=== PATIENT | female | born 1965 | race African-American/Black ===

== ENCOUNTER 2017-05-18 14:46 | Inpatient (IN) | payer BC, SELFPAY ==
[2017-05-18] VITALS (12 sets, daily range): BP systolic 161–223; BP diastolic 91–116; PULSE 102–130; RESP 17–31; TEMP 36.6–37.3; O2SAT 97–100; BMI 41.9; BMI 39.9
--- NOTE | 2017-05-18 15:35 | EKG12_ITS ---
Test Reason : SOB Blood Pressure : / mmHG Vent. Rate : 126 BPM Atrial Rate : 126 BPM P-R Int : 128 ms QRS Dur : 084 ms QT Int : 322 ms P-R-T Axes : 063 045 027 degrees QTc Int : 466 ms Sinus tachycardia Nonspecific ST and T wave abnormality Abnormal ECG Confirmed by SHYANN SORENSON, SANDRA ([id number]), film editor KRYSTA EDUARDO ([id number]) on 05/20/2017 3:15:49 PM Referred By: Confirmed By:SANDRA BOOTHE MD
--- NOTE | 2017-05-18 15:36 | CT_ITS ---
CTA Chest WO/W Contrast INDICATION: SHORT OF BREATH,WHEEZING,COUGHING,FEVERPT HAS CEREBRAL PALSY COMPARISON: None TECHNIQUE: High resolution axial CT imaging of the chest during intravenous contrast administration, CTA protocol. Multiplanar and MIP 3D reformatted images. 100 mL of Isovue-370 were given intraveniously. Radiation dose optimization technique applied. FINDINGS: There is no evidence of central or proximal segmental pulmonary arterial filling defect to suggest PE. Distal segmental and subsegmental vessels cannot be assessed due to breathing motion. Marked right convex scoliosis of the thoracic spine is noted with degenerative changes and fusion hardware. Fusion rods cause beam hardening artifact. The heart size is normal. Right upper lobe predominant patchy and hazy peribronchial opacities are seen, compatible with infection. Perihilar peribronchial opacities are present, right worse than left. No significant mediastinal lymphadenopathy. No evidence of pleural effusion. The liver is low in density and enlarged. CT/CTA Chest W/WO Contrast IMPRESSION: No evidence of central or proximal segmental PE. Distal segmental and subsegmental vessels cannot be assessed due to breathing motion. Scoliosis with fusion hardware causing artifact. Right sided upper lobe predominant peribronchial opacities compatible with infection/pneumonia. No evidence of pleural effusion. Hepatomegaly and hepatic steatosis at 1742 Reported and signed by: Stacy Mendoza MD Electronically Signed: Stacy Mendoza MD at 16:41 EST Tel , Service support ,
--- NOTE | 2017-05-18 15:38 | ED.VISSUMM ---
- ER Visit Summary Date of Service: 05/18/17 Chief Complaint: Shortness of breath History of Present Illness: The patient is a 51 F presenting with shortness of breath. She states it started 3 days ago. She went to urgent care. She was given breathing treatment, steroids, antibiotics. She states she has not started antibiotics yet. She complains of dyspnea, productive cough, subjective fever. She has a history of cerebral palsy and is nonambulatory. She states it is difficult to take a deep breath. She does not have home O2. She presents via EMS with a nonrebreather mask. Physical Examination: Blood pressure 184/112, temperature 99.2, heart rate 124, respiratory 19, pulse ox 98% on 4 L. HEENT exam is unremarkable. Neck is supple. Lungs are wheezing diffusely Heart is regular tachycardic Abdomen is soft nontender nondistended. Extremities are unremarkable. Skin is warm and dry. Remainder of exam is unremarkable. Emergency Department Course and Treatment: She was given IV fluids, albuterol, Atrovent. EKG sinus rate of 126. CBC is white count of 12.0. Chemistries unremarkable other than glucose 130. Troponin 0.05. Lactic acid is 2.2. CTA chest was obtained and shows no evidence of PE, limited study; right upper lobe pneumonia. She remains hemodynamically stable. Blood cultures were sent. She was given Levaquin IV. Discussed with the hospitalist for admission. Disposition: Admission Impression: Severe sepsis secondary to pneumonia This note was generated with [employer] dictation software. It may contain incorrect words, spelling, and punctuation that were not noted in review of the chart prior to signing ED Disposition - Plan for ED Patient: Chief Complaint: Shortness of Breath Referrals: Beena Lance,Out of [Primary Care Provider] -
--- NOTE | 2017-05-18 15:42 | RAD_ITS ---
STUDY: X-RAY CHEST REASON FOR EXAM: Female, 51 years old. For breath and wheezing. Coughing. Fevers. TECHNIQUE: Single AP portable view of the chest. COMPARISON: 02/04/2015 FINDINGS: Moderate lung volumes. Lungs are clear. Heart size normal. No effusions. Stable appearance of extensive thoracolumbar surgery and posterior fixation for scoliosis. RAD/Chest 1 View (Portable) IMPRESSION: No evidence for acute chest disease. Electronically Signed: Hiram Hedrick MD at 16:16 EST , Service support ,
[2017-05-18 15:43] LABS: Absolute Lymphocyte Count 1.74 X10^3/ul (0.83-4.51); Absolute Neutrophil Count 8.9 X10^3/uL (2.0-7.7); Basophil# 0.02 X10^3/uL; Basophil% 0.2 % (0-1); Eosinophil# 0.03 X10^3/uL; Eosinophils% 0.3 % (0-5); Hematocrit 40.5 % (37-47); Hemoglobin 12.7 g/dl (12.0-15.0); Lymphocyte # 1.74 X10^3/ul (4.0); Lymphocyte % 14.5 % (19-41); Mean Corp Hgb Conc 31.4 g/gl (32-36); Mean Corpuscular Hgb 29.3 pg (27.0-32.0); Mean Corpuscular Volume 93.5 fL (81-99); Mean Platelet Vol. 9.8 fl (6.2-12.0); Monocyte# 1.32 X10^3/uL; Neutrophil # 8.87 X10^3/uL (2.7-7.7); Neutrophil % 73.8 % (47-70); Platelet Count 367 K/mm3 (150-450); RBC Distribution Width CV 14.4 % (11.6-14.6); RBC Distribution Width SD 49.5 fl (35.1-43.9); Red Blood Count 4.33 M/mm3 (4.2-5.4)
[2017-05-18 15:49] LABS: POSITIVE COUNT NO; POSITIVE DIFFERENTIAL NO; POSITIVE MORPHOLOGY NO
[2017-05-18] MEDS: Albuterol 2.5 MG/3 ML VIAL.NEB. INHALATION ×2 (15:53)
[2017-05-18] MEDS: Ipratropium/Albuterol Sulfate 3 ML AMPUL.NEB INHALATION ×2 (15:53→22:11)
[2017-05-18] MEDS: 0.9% Normal Saline 1,000 ML 1000 ML IV (16:00)
[2017-05-18 16:14] LABS: Anion Gap 7 (5-15); BUN 10 mg/dL (7-18); BUN/Creat Ratio 20.2 RATIO (10-20); Calcium,Total 8.4 mg/dL (8.5-10.1); Chloride 108 mmol/L (98-107); EST Glomerular Filtration Rate 140 mL/min (>60); Est Glom Filt Rate - Afr Amer 169 mL/min (>60); Estimated Creatinine Clearance 197.95 ml/min; Glucose 130 mg/dL (74-106); Lactic Acid 2.2 mmol/L (0.4-2.0); Potassium 3.7 mmol/L (3.5-5.1); Sodium Level 142 mmol/L (136-145)
[2017-05-18 17:08] LABS: Bacteria 0 SEEN /hpf (None Seen); Mucous, Urine 0 SEEN /hpf (<or=2+); Red Blood Cells-Urine 0 SEEN /hpf (0-5); Squamous Epithelial Cells - UA 0 SEEN /hpf (5-10); White Blood Cells 0 SEEN /hpf (0-5)
[2017-05-18 17:15] LABS: Color, Urine Yellow (Yellow); Glucose, Dipstick Normal (Normal); Ketone-Dipstick Negative (Negative); Leukocyte Esterase-Dipstick Negative /ul (Negative); Nitrite-Dipstick Negative (Negative); Occult Blood-Urine Negative /ul (Negative); Protein-Dipstick Negative (Negative); Urine Bilirubin Dipstick Negative (Negative); Urine Clarity Clear (Clear); Urine Urobilinogen Normal (Normal)
[2017-05-18 19:40] LABS: Reflex Lactate? Y
--- NOTE | 2017-05-18 20:16 | PCM.HP.STD ---
Problem List (1) Hepatic steatosis Status: Acute (2) Sepsis Status: Acute (3) CAP (community acquired pneumonia) Status: Acute (4) Cerebral palsy, hemiplegic Status: Chronic History of Present Illness Date of Admission: 05/18/17 Chief Complaint: Severe sepsis secondary to CAP The patient is a 51 year old female w/ h/o HTN, cerebral palsy and nonambulatory admitted for severe sepsis secondary to CAP. She noted that she has productive worsening cough x 3 days. The intensity and frequency of the cough have increased. She was seen by urgent care and was given a breathing treatment, steroid and antibiotic. She has not started antibiotic yet. Her SOB has gotten so severe that it interfered with her ADLs. Nothing appeared to make her SOB worse or better. SOB is not associated with any other symptoms. She went to the ED for further evaluation. Past Medical History Past Medical History (Chronic Problems): Chronic Problems Cerebral palsy, hemiplegic (Chronic) Allergies amoxicillin Adverse Reaction (Verified 05/18/17 15:11) Nausea Home Medications: Ambulatory Orders Medication Instructions Recorded Albuterol Aerosols [Ventolin 2.5 mg INHALATION Q4HWA.RT 05/18/17 Aerosols] Metoprolol Succinate 25 mg PO DAILY 05/18/17 Surgical History: total hip arthroplasty, - - Scoliosis repair, hamstring release, heel cord release, rotator cuff repair, tendon reattachment left thumb Smoking Status: Never smoker Alcohol: None Drugs: None - *Family History Maternal History Items: No pertinent history Review of Systems Constitutional: Reports: Chills. Denies: Fever, Weight Change HEENT: Denies: Head Aches, Sinus Congestion, Sinus Drainage Cardiovascular: Denies: Chest Pain, Palpitations Respiratory: Reports: Cough, Shortness of Breath, Sputum production, Wheezing Gastrointestinal: Denies: Abdominal Pain, Nausea, Vomiting Genitourinary: Denies: Dysuria Musculoskeletal: Denies: Joint Pain, Joint Tenderness Skin: Denies: Rash, Wounds Neurological: Denies: Numbness, Tingling, Focal weakness Psychiatric: Denies: Anxiety, Depression, Homicidal Ideations, Suicidal Ideations Hematologic/ Lymphatic: Denies: Easy Bruising, Easy Bleeding VTE Information - Inpt Only VTE Present on Admission: No VTE Mechan Device Prophylaxis: SCD's VTE Pharm Prophylaxis ordered?: Yes Patient Problems: Active and Suspected Problems Hepatic steatosis (Acute) Sepsis (Acute) CAP (community acquired pneumonia) (Acute) - Physical Exam General: Alert, Oriented x3, Cooperative HEENT: Atraumatic, PERRLA, EOMI, Normocephalic Neck: Supple, No JVD, Negative Carotid Bruits Lungs: Diminished, Rales, Short of Breath, Tachypneic Cardiovascular: Regular rate, No murmurs Abdomen: Bowel Sounds Present, Soft, Non Tender Extremities: No edema, Capillary Refill Less than 3 Seconds Skin: No rashes, No breakdown Musculoskeletal: No Tenderness to Palpation of Joints or Extremities Neurological: Cranial nerves II-XII grossly intact Psych/Mental Status: Normal Affect, Appropriate Vital Signs Temp Pulse Resp BP Pulse Ox 97.8 F 122 H 22 H 192/116 H 100 05/18/17 16:56 05/18/17 20:01 05/18/17 20:01 05/18/17 20:01 05/18/17 20:01 Assessment/Plan Active and Suspected Problems Hepatic steatosis (Acute) Sepsis (Acute) CAP (community acquired pneumonia) (Acute) 51 year old female w/ h/o HTN, cerebral palsy and nonambulatory admitted for severe sepsis secondary to CAP. 1) Severe sepsis secondary to CAP: CTA disclosed no PE and right sided upper lobe predominant peribronchial opacities compatible with infection/pneumonia. Will start ceftriaxone and azithromycin. Will consider double gram negative coverage and MRSA if no improvement. Cultures pending. IVF hydration. Monitor. 2) HTN: Will hold metoprolol given sepsis. Monitor. 3) Lactic acidosis: CT disclosed hepatomegaly and hepatic steatosis. Will get LFT. Will repeat lactic acid. Will hydrate. Monitor. 4) Prophylaxis: Heparin / SCD.
[2017-05-18] MEDS: 0.9% Normal Saline 1,000 ML 150 ML IV (22:07)
[2017-05-18 22:19] LABS: Lactic Acid 2.5 mmol/L (0.4-2.0)
[2017-05-18] MEDS: 0.9% Normal Saline 1,000 ML 999 ML IV (22:35)
[2017-05-18] MEDS: Ceftriaxone 1 GM/50 ML BAG IV (22:46)
[2017-05-19] VITALS (26 sets, daily range): BP systolic 150–195; BP diastolic 70–93; PULSE 83–127; RESP 18–28; TEMP 36.6–38.6; O2SAT 97–100
[2017-05-19] MEDS: Acetaminophen 325 MG Tablet 650 MG PO ×2 (03:18→23:47)
[2017-05-19 03:36] LABS: Lactic Acid 1.9 mmol/L (0.4-2.0)
[2017-05-19] MEDS: Ipratropium/Albuterol Sulfate 3 ML AMPUL.NEB INHALATION ×6 (04:00→23:10)
[2017-05-19] MEDS: guaiFENesin 10 ML UDC (200MG/10ML) PO ×4 (05:52→23:47)
--- NOTE | 2017-05-19 05:59 | RAD_ITS ---
STUDY: X-RAY CHEST REASON FOR EXAM: Female, 51 years old. Shortness of breath. TECHNIQUE: AP portable chest. COMPARISON: May 18, 2017. CT chest May 18, 2017. FINDINGS: The lungs are clear and expanded. Airspace opacities right upper lobe described in the report the recent CT scan are not appreciated on this study. There is no demonstrated pleural abnormality. Probable lead line overlying the superior aspect right axilla. Normal size heart. Normal mediastinum and cortez. Normal visualized pulmonary arteries. Normal visualized aortic arch and descending thoracic aorta. Lower thoracic lumbar dextroscoliosis with lower thoracic lumbar fusion hardware. Postoperative changes right shoulder. There is no demonstrated abnormality of the visualized soft tissue structures of the upper abdomen. RAD/Chest PA and Lateral IMPRESSION: No acute cardiopulmonary disease. No focal infiltrates appreciated on this exam. Electronically Signed: Kevan Aguero MD at 6:12 EDT , Service support ,
[2017-05-19] MEDS: 0.9% Normal Saline 1,000 ML 150 ML IV (08:10)
[2017-05-19] MEDS: Ceftriaxone 1 GM/50 ML BAG IV (11:03)
[2017-05-19] MEDS: Metoprolol(XL)Succ 25 MG Tablet PO (11:10)
--- NOTE | 2017-05-19 12:48 | PCM.PROGNOTE ---
<Carl Roberson - Last Filed: 05/19/17 13:40> Patient Problems: Active and Suspected Problems Hepatic steatosis (Acute) Sepsis (Acute) CAP (community acquired pneumonia) (Acute) Subjective: SOB improved. Pt continues to have productive cough with yellow/green mucus. No fever or chills. No hemoptysis. 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 Pt denies CP. No n/v/d/abdominal pain. No wounds currently. She states she has chronic bilateral lower extremity swelling. Currently mild. - Physical Exam General: Alert, Oriented x3, Cooperative HEENT: Atraumatic, PERRLA, EOMI, Normocephalic Neck: Supple, No JVD, Negative Carotid Bruits Lungs: Normal air movement, Rhonchi - Right upper lobe Cardiovascular: Regular rate, No murmurs Abdomen: Bowel Sounds Present, Soft, Non Tender Extremities: No edema, Capillary Refill Less than 3 Seconds Skin: No rashes, No breakdown Musculoskeletal: No Tenderness to Palpation of Joints or Extremities Neurological: Cranial nerves II-XII grossly intact Psych/Mental Status: Normal Affect, Appropriate, Alert and oriented to time, place, person, mood and affect Vital Signs Temp Pulse Resp BP Pulse Ox 98 F 108 H 21 H 167/91 H 100 05/19/17 11:10 05/19/17 11:15 05/19/17 11:15 05/19/17 11:10 05/19/17 11:15 Oxygen Flow Rate (L/min) 3 Oxygen Delivery Method Nasal Cannula Weight: 89.6 kg Body Mass Index (BMI) 39.9 Intake and Output for Last 24 Hours 05/17/17 05/18/17 05/20/17 23:59 23:59 00:59 Intake Total 2203 / 2203 1800 / 1800 Output Total 1550 / 1550 800 / 800 Balance 653 / 653 1000 / 1000 Microbiology Past 72 Hours 05/18/17 23:00 Gram Stain - Final Sputum, Expectorated/Coughed 05/18/17 22:10 Respiratory Panel (PCR) - Final Mucosa - Nose RSV B 05/18/17 22:10 Influenza Types A,B Direct FA ([facility]) - Final Mucosa - Nose Laboratory Tests Past 24 Hrs 05/18/17 05/19/17 21:30 01:32 Lactic Acid 2.5 H 1.9 Assessment/Plan Active and Suspected Problems Hepatic steatosis (Acute) Sepsis (Acute) CAP (community acquired pneumonia) (Acute) 1. Acute severe sepsis secondary to right upper lobe community-acquired pneumonia-seen on CTA of the chest. Chest x-rays are negative. Respiratory panel demonstrates RSV. She is on Rocephin and azithromycin. Leukocytosis, lactic acidosis which is now resolved, tachycardia, and fever which is now resolved, T-max of 101.4. She continues to have a productive cough. Continue PEP, mucinex, aerosols. Follow final cultures. 2. HTN - somewhat improved with restarting toprol. Will add prn hydralazine. 3. Cerebral palsy - PTOT DVT ppx: heparin DC planning: PTOT, patient will likely be able to return home when clinically improved. This patient was seen by Carl Roberson PA-C under the supervision of Doctor Mignon. <Kanchan Crow - Last Filed: 05/19/17 17:08> - Physical Exam Vital Signs Temp Pulse Resp BP Pulse Ox 98 F 112 H 20 H 163/84 H 99 05/19/17 16:00 05/19/17 16:00 05/19/17 16:00 05/19/17 16:00 05/19/17 16:00 Oxygen Flow Rate (L/min) 2 Oxygen Delivery Method Nasal Cannula Weight: 89.6 kg Body Mass Index (BMI) 39.9 Intake and Output for Last 24 Hours 05/17/17 05/18/17 05/20/17 23:59 23:59 00:59 Intake Total 2203 / 2203 1800 / 1800 Output Total 1550 / 1550 800 / 800 Balance 653 / 653 1000 / 1000 Microbiology Past 72 Hours 05/18/17 23:00 Gram Stain - Final Sputum, Expectorated/Coughed 05/18/17 22:10 Respiratory Panel (PCR) - Final Mucosa - Nose RSV B 05/18/17 22:10 Influenza Types A,B Direct FA ([facility]) - Final Mucosa - Nose Laboratory Tests Past 24 Hrs 05/18/17 05/19/17 21:30 01:32 Lactic Acid 2.5 H 1.9 Assessment/Plan Patient was seen and examined independently of Carl HOANG. I agree with his interval history, physical exam and A/P as outlined above in his note. In brief, 51 year-old with past medical history of cerebral palsy comes in with shortness of breath, cough of 3 days duration, status post failed outpatient management. Patient has been admitted and monitored severe sepsis secondary to community-acquired pneumonia. At time of being examined, patient looked very short of breath, on 3 L of oxygen. Not on oxygen at home. Patient has severe wheezes and increased work of breathing. Vitals showed tachycardia, with uncontrolled blood pressure secondary to respiratory distress. Respiratory panel showed RSV B. Patient already on breathing treatments, would add IV Solu-Medrol, albuterol every 2 as needed addition to DuoNeb. Code Visit Inpatient E&M: 02465 Subs Hosp L2
--- NOTE | 2017-05-19 12:56 | PN_ITS ---
Addendum entered and electronically signed by VIKTOR Sheehan 05/19/17 13:40: Code Visit Problem #1 - additionally Acute RSV bronchitis. Original Note: <Carl Roberson - Last Filed: 05/19/17 13:40> Patient Problems: Active and Suspected Problems Hepatic steatosis (Acute) Sepsis (Acute) CAP (community acquired pneumonia) (Acute) Subjective: SOB improved. Pt continues to have productive cough with yellow/green mucus. No fever or chills. No hemoptysis. 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 Pt denies CP. No n/v/d/abdominal pain. No wounds currently. She states she has chronic bilateral lower extremity swelling. Currently mild. - Physical Exam General: Alert, Oriented x3, Cooperative HEENT: Atraumatic, PERRLA, EOMI, Normocephalic Neck: Supple, No JVD, Negative Carotid Bruits Lungs: Normal air movement, Rhonchi - Right upper lobe Cardiovascular: Regular rate, No murmurs Abdomen: Bowel Sounds Present, Soft, Non Tender Extremities: No edema, Capillary Refill Less than 3 Seconds Skin: No rashes, No breakdown Musculoskeletal: No Tenderness to Palpation of Joints or Extremities Neurological: Cranial nerves II-XII grossly intact Psych/Mental Status: Normal Affect, Appropriate, Alert and oriented to time, place, person, mood and affect Vital Signs Temp Pulse Resp BP Pulse Ox 98 F 108 H 21 H 167/91 H 100 05/19/17 11:10 05/19/17 11:15 05/19/17 11:15 05/19/17 11:10 05/19/17 11:15 Oxygen Flow Rate (L/min) 3 Oxygen Delivery Method Nasal Cannula Weight: 89.6 kg Body Mass Index (BMI) 39.9 Intake and Output for Last 24 Hours 05/17/17 05/18/17 05/20/17 23:59 23:59 00:59 Intake Total 2203 / 2203 1800 / 1800 Output Total 1550 / 1550 800 / 800 Balance 653 / 653 1000 / 1000 Microbiology Past 72 Hours 05/18/17 23:00 Gram Stain - Final Sputum, Expectorated/Coughed 05/18/17 22:10 Respiratory Panel (PCR) - Final Mucosa - Nose RSV B 05/18/17 22:10 Influenza Types A,B Direct FA ([facility]) - Final Mucosa - Nose Laboratory Tests Past 24 Hrs 05/18/17 05/19/17 21:30 01:32 Lactic Acid 2.5 H 1.9 Assessment/Plan Active and Suspected Problems Hepatic steatosis (Acute) Sepsis (Acute) CAP (community acquired pneumonia) (Acute) 1. Acute severe sepsis secondary to right upper lobe community-acquired pneumonia-seen on CTA of the chest. Chest x-rays are negative. Respiratory panel demonstrates RSV. She is on Rocephin and azithromycin. Leukocytosis, lactic acidosis which is now resolved, tachycardia, and fever which is now resolved, T-max of 101.4. She continues to have a productive cough. Continue PEP, mucinex, aerosols. Follow final cultures. 2. HTN - somewhat improved with restarting toprol. Will add prn hydralazine. 3. Cerebral palsy - PTOT DVT ppx: heparin DC planning: PTOT, patient will likely be able to return home when clinically improved. This patient was seen by Carl Roberson PA-C under the supervision of Doctor Crow. <Kanchan Crow - Last Filed: 05/19/17 17:08> - Physical Exam Vital Signs Temp Pulse Resp BP Pulse Ox 98 F 112 H 20 H 163/84 H 99 05/19/17 16:00 05/19/17 16:00 05/19/17 16:00 05/19/17 16:00 05/19/17 16:00 Oxygen Flow Rate (L/min) 2 Oxygen Delivery Method Nasal Cannula Weight: 89.6 kg Body Mass Index (BMI) 39.9 Intake and Output for Last 24 Hours 05/17/17 05/18/17 05/20/17 23:59 23:59 00:59 Intake Total 2203 / 2203 1800 / 1800 Output Total 1550 / 1550 800 / 800 Balance 653 / 653 1000 / 1000 Microbiology Past 72 Hours 05/18/17 23:00 Gram Stain - Final Sputum, Expectorated/Coughed 05/18/17 22:10 Respiratory Panel (PCR) - Final Mucosa - Nose RSV B 05/18/17 22:10 Influenza Types A,B Direct FA ([facility]) - Final Mucosa - Nose Laboratory Tests Past 24 Hrs 05/18/17 05/19/17 21:30 01:32 Lactic Acid 2.5 H 1.9 Assessment/Plan Patient was seen and examined independently of Carl HOANG. I agree with his interval history, physical exam and A/P as outlined above in his note. In brief, 51 year-old with past medical history of cerebral palsy comes in with shortness of breath, cough of 3 days duration, status post failed outpatient management. Patient has been admitted and monitored severe sepsis secondary to community- acquired pneumonia. At time of being examined, patient looked very short of breath, on 3 L of oxygen. Not on oxygen at home. Patient has severe wheezes and increased work of breathing. Vitals showed tachycardia, with uncontrolled blood pressure secondary to respiratory distress. Respiratory panel showed RSV B. Patient already on breathing treatments, would add IV Solu-Medrol, albuterol every 2 as needed addition to DuoNeb. Code Visit Inpatient E&M: 79582 Subs Hosp L2
[2017-05-19] MEDS: Albuterol 2.5 MG/3 ML VIAL.NEB. INHALATION (13:18)
[2017-05-19] MEDS: 0.9% NaCl Peripheral Flush Adult/Peds IV ×3 (14:08→22:14)
[2017-05-20] VITALS (24 sets, daily range): BP systolic 152–176; BP diastolic 72–91; PULSE 97–114; RESP 16–22; TEMP 36–37.1; O2SAT 95–100
[2017-05-20] MEDS: Ipratropium/Albuterol Sulfate 3 ML AMPUL.NEB INHALATION ×6 (03:39→23:22)
[2017-05-20] MEDS: guaiFENesin 10 ML UDC (200MG/10ML) PO ×4 (06:01→23:52)
[2017-05-20] MEDS: 0.9% NaCl Peripheral Flush Adult/Peds IV (06:01)
[2017-05-20] MEDS: Acetaminophen 325 MG Tablet 650 MG PO (06:02)
[2017-05-20 06:08] LABS: Absolute Lymphocyte Count 1.04 X10^3/ul (0.83-4.51); Absolute Neutrophil Count 4.7 X10^3/uL (2.0-7.7); Basophil# 0.02 X10^3/uL; Basophil% 0.3 % (0-1); Eosinophil# 0.01 X10^3/uL; Eosinophils% 0.2 % (0-5); Hematocrit 39.5 % (37-47); Hemoglobin 12.3 g/dl (12.0-15.0); Lymphocyte # 1.04 X10^3/ul (4.0); Lymphocyte % 17.3 % (19-41); Mean Corp Hgb Conc 31.1 g/gl (32-36); Mean Corpuscular Hgb 29.1 pg (27.0-32.0); Mean Corpuscular Volume 93.4 fL (81-99); Mean Platelet Vol. 9.9 fl (6.2-12.0); Monocyte# 0.25 X10^3/uL; Monocyte% 4.2 % (0-10); Neutrophil # 4.67 X10^3/uL (2.7-7.7); Neutrophil % 77.8 % (47-70); Platelet Count 366 K/mm3 (150-450); RBC Distribution Width CV 14.8 % (11.6-14.6); RBC Distribution Width SD 50.4 fl (35.1-43.9); Red Blood Count 4.23 M/mm3 (4.2-5.4)
[2017-05-20 06:17] LABS: Anion Gap 8 (5-15); BUN 6 mg/dL (7-18); BUN/Creat Ratio 13.8 RATIO (10-20); Calcium,Total 8.7 mg/dL (8.5-10.1); Chloride 105 mmol/L (98-107); Creatinine, Serum 0.44 mg/dL (0.55-1.02); EST Glomerular Filtration Rate 162 mL/min (>60); Est Glom Filt Rate - Afr Amer 196 mL/min (>60); Estimated Creatinine Clearance 213.96 ml/min; Glucose 127 mg/dL (74-106); POSITIVE COUNT NO; POSITIVE DIFFERENTIAL NO; POSITIVE MORPHOLOGY NO; Potassium 4.2 mmol/L (3.5-5.1); Sodium Level 141 mmol/L (136-145)
[2017-05-20] MEDS: Metoprolol(XL)Succ 50 MG Tablet PO (09:50)
[2017-05-20] MEDS: Ceftriaxone 1 GM/50 ML BAG IV (09:52)
--- NOTE | 2017-05-20 11:25 | CASEMGMT ---
This RN CM to bedside to complete CM assessment and student nurses are gowning up to go in and assess pt at this time. Will attempt later. SStaten RN CM
--- NOTE | 2017-05-20 12:42 | CASEMGMT ---
Addendum entered by Dionna Lowery 05/20/17 13:14: REMEDIOS HUDSON Assessment verbal report provided to Alessia Isbell RN CM, PCU. Nigel Lowery, BSKiko, RN-BC, [facility] Original Note: REMEDIOS HUDSON ASSESSMENT COMPLETE. LACE STRATA: ADM Dx: Community Acquired Pneumonia Transition Planning/Care Coordination: Patient is wheelchair bound since childhood secondary to cerebral palsy. Patient is and reports her spouse provides a strong support for her. 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 The patient reports being in good health, except for her pneumonia. Patient is currently sating 90's on room air in the room. Patient reports no home-going needs, and patient reports she has a handicap accessible van for transportation home. REMEDIOS HUDSON will remain available to assist should needs arise. Disposition Plan: Home with support of spouse.
--- NOTE | 2017-05-20 13:07 | PN_ITS ---
<Carl Roberson - Last Filed: 05/20/17 13:02> Patient Problems: Active and Suspected Problems Hepatic steatosis (Acute) Sepsis (Acute) CAP (community acquired pneumonia) (Acute) Subjective: No further CP. Nonproductive cough today. No fever or chills. Pt will attempt to be up more today. She does not ambulate normally. She uses a power chair. Mild dyspnea today. She is now off O2. - Physical Exam General: Alert, Oriented x3, Cooperative HEENT: Atraumatic, PERRLA, EOMI, Normocephalic Neck: Supple, No JVD, Negative Carotid Bruits Lungs: Clear to auscultation, Normal air movement Cardiovascular: Regular rate, No murmurs Abdomen: Bowel Sounds Present, Soft, Non Tender Extremities: No edema, Capillary Refill Less than 3 Seconds Skin: No rashes, No breakdown Musculoskeletal: No Tenderness to Palpation of Joints or Extremities Neurological: Cranial nerves II-XII grossly intact Psych/Mental Status: Normal Affect, Appropriate, Alert and oriented to time, place, person, mood and affect Vital Signs Temp Pulse Resp BP Pulse Ox 98.2 F 112 H 18 163/82 H 96 05/20/17 11:51 05/20/17 11:51 05/20/17 11:51 05/20/17 11:51 05/20/17 11:51 Oxygen Flow Rate (L/min) 2 Oxygen Delivery Method Room Air Weight: 89.6 kg Body Mass Index (BMI) 39.9 Intake and Output for Last 24 Hours 05/18/17 05/19/17 05/20/17 22:59 23:59 23:59 Intake Total 240 / 240 Output Total 1825 / 1825 Balance -1585 / -1585 Microbiology Past 72 Hours 05/18/17 23:00 Gram Stain - Final Sputum, Expectorated/Coughed Respiratory Culture - Preliminary Appears to be normal respiratory sera. Further studies to follow. 05/18/17 22:10 Respiratory Panel (PCR) - Final Mucosa - Nose RSV B 05/18/17 22:10 Influenza Types A,B Direct FA (SAULO) - Final Mucosa - Nose Laboratory Tests Past 24 Hrs 05/20/17 05/20/17 05:30 05:30 WBC 6.0 RBC 4.23 Hgb 12.3 Hct 39.5 MCV 93.4 MCH 29.1 MCHC 31.1 L RDW 14.8 H RDW Differential 50.4 H Plt Count 366 MPV 9.9 Immature Gran % (Auto) 0.200 Neut % (Auto) 77.8 H Lymph % (Auto) 17.3 L Gilliam % (Auto) 4.2 Eos % (Auto) 0.2 Baso % (Auto) 0.3 Absolute Neuts (auto) 4.7 Absolute Lymphs (auto) 1.04 Total Counted Not Reportable Sodium 141 Potassium 4.2 Chloride 105 Carbon Dioxide 28.0 Anion Gap 8 BUN 6 L Creatinine 0.44 L Estim Creat Clear Calc 213.96 Est GFR (MDRD) Af Amer 196 Est GFR (MDRD) Non-Af 162 BUN/Creatinine Ratio 13.8 Glucose 127 H Calcium 8.7 Assessment/Plan Active and Suspected Problems Hepatic steatosis (Acute) Sepsis (Acute) CAP (community acquired pneumonia) (Acute) 1. Acute severe sepsis secondary to right upper lobe community-acquired pneumonia-seen on CTA of the chest. Chest x-rays are negative. Respiratory panel demonstrates RSV. She is on Rocephin and azithromycin. Suspect superimposed G+ pna. Leukocytosis, lactic acidosis which is now resolved, fever resolved. T-max was 101.4. Continue PEP, mucinex, aerosols. Follow final cultures. She was started on solumedrol yesterday. Convert to PO prednisone. Encouraged out of bed today. 2. HTN - not improved and still tachy. Increase metoprolol today. 3. Cerebral palsy - PTOT. DVT ppx: heparin DC planning: if no complications foresee dc home tomorrow. This patient was seen by Carl Roberson PA-C under the supervision of Doctor Kelvin. <Jonathan Warren - Last Filed: 05/20/17 16:31> Subjective: Seen and examined. Patient still has cough and mild dyspnea. Denies chest congestion. - Physical Exam Lungs: No rhonchi, No wheeze, No rales, Diminished Cardiovascular: Regular Rhythm, Normal S1, Normal S2 Vital Signs Temp Pulse Resp BP Pulse Ox 98.7 F 103 H 18 155/75 H 95 05/20/17 15:55 05/20/17 15:55 05/20/17 16:00 05/20/17 15:55 05/20/17 16:00 Oxygen Flow Rate (L/min) 2 Oxygen Delivery Method Room Air Weight: 197 lb 8.547 oz Body Mass Index (BMI) 39.9 Intake and Output for Last 24 Hours 05/18/17 05/19/17 05/20/17 22:59 23:59 23:59 Intake Total 765 / 765 Output Total 2200 / 2200 Balance -1435 / -1435 Microbiology Past 72 Hours 05/18/17 23:00 Gram Stain - Final Sputum, Expectorated/Coughed Respiratory Culture - Preliminary Appears to be normal respiratory sera. Further studies to follow. 05/18/17 22:10 Respiratory Panel (PCR) - Final Mucosa - Nose RSV B 05/18/17 22:10 Influenza Types A,B Direct FA (SAULO) - Final Mucosa - Nose Laboratory Tests Past 24 Hrs 05/20/17 05/20/17 05:30 05:30 WBC 6.0 RBC 4.23 Hgb 12.3 Hct 39.5 MCV 93.4 MCH 29.1 MCHC 31.1 L RDW 14.8 H RDW Differential 50.4 H Plt Count 366 MPV 9.9 Immature Gran % (Auto) 0.200 Neut % (Auto) 77.8 H Lymph % (Auto) 17.3 L Gilliam % (Auto) 4.2 Eos % (Auto) 0.2 Baso % (Auto) 0.3 Absolute Neuts (auto) 4.7 Absolute Lymphs (auto) 1.04 Total Counted Not Reportable Sodium 141 Potassium 4.2 Chloride 105 Carbon Dioxide 28.0 Anion Gap 8 BUN 6 L Creatinine 0.44 L Estim Creat Clear Calc 213.96 Est GFR (MDRD) Af Amer 196 Est GFR (MDRD) Non-Af 162 BUN/Creatinine Ratio 13.8 Glucose 127 H Calcium 8.7 Assessment/Plan This patient was seen in conjunction with Carl HOANG. I have independently interviewed and examined the patient and reviewed pertinent history, examination findings, laboratory and plan of management. I have reviewed the note and agree with the documented findings with the few additional points. In brief, patient is admitted for acute severe sepsis secondary to right upper lobe currently acquired pneumonia possible superimposed bacterial on viral pneumonia as respiratory panel demonstrated RSV. Patient also had acute hypoxic respiratory failure secondary to severe sepsis and pneumonia: Resolved. I have discussed my assessment with Carl HOANG and orders have been reviewed. Code Visit Inpatient E&M: 29488 Subs Hosp L3
--- NOTE | 2017-05-20 14:43 | CASEMGMT ---
SW spoke with patient regarding advance directives. She did not want to complete documents she just asked SW to leave the documents so she can look at them. SW told her she can ask for SW if she has questions. Chelsey KAPLAN
[2017-05-21] VITALS (10 sets, daily range): BP systolic 162–175; BP diastolic 81–90; PULSE 95–105; RESP 16–22; TEMP 36.9–37.1; O2SAT 94–96
[2017-05-21] MEDS: Ipratropium/Albuterol Sulfate 3 ML AMPUL.NEB INHALATION ×3 (03:28→10:53)
[2017-05-21] MEDS: guaiFENesin 10 ML UDC (200MG/10ML) PO ×2 (06:22→11:35)
[2017-05-21] MEDS: Metoprolol(XL)Succ 50 MG Tablet PO (09:21)
[2017-05-21] MEDS: 0.9% NaCl Peripheral Flush Adult/Peds IV (09:22)
[2017-05-21] MEDS: Ceftriaxone 1 GM/50 ML BAG IV (09:22)
[2017-05-21] MEDS: NYSTATIN 500,000 UNIT/5 ML UDC 500000 UNIT PO ×2 (11:35→15:01)
--- NOTE | 2017-05-21 11:42 | PCM.DC ---
- Discharge Diagnoses Current Active Problems: Current Active and Chronic Problems Hepatic steatosis (Acute) Sepsis (Acute) CAP (community acquired pneumonia) (Acute) You will use the following diet at home:: Cardiac - 2 g sodium max daily Your food should be the consistency of: Regular Your liquids should be the consistency of: Regular/Thin Discharge Activity: Return to Normal Activity Additional Instructions: please have your blood pressure checked daily after discharge, record the findings and present the findings to your PCP at follow up. Allergies/Adverse Reactions: Allergies amoxicillin Adverse Reaction (Verified 05/18/17 15:11) Nausea Medications to take at Discharge Albuterol Aerosols [Ventolin Aerosols] 2.5 mg INHALATION Q4HWA.RT 05/18/17 Cefdinir 300 mg PO BID #2 cap 05/21/17 Metoprolol(XL)Succ [Toprol Xl (Beta Becky)] 50 mg PO DAILY #30 tab 05/21/17 Nystatin 500,000 unit PO 4X/DAY #1 bottle 05/21/17 The following prescriptions were given: Cefdinir 300 mg PO BID #2 cap Metoprolol(XL)Succ [Toprol Xl (Beta Becyk)] 50 mg PO DAILY #30 tab Nystatin 500,000 unit PO 4X/DAY #1 bottle Primary Care Physician: Beena Lance,Out of [Primary Care Provider] - Please follow up with your Primary Care Physician in: 1-2 weeks Proposed Discharge Date: 05/21/17
--- NOTE | 2017-05-21 12:50 | CASEMGMT ---
Received a message from [facility] case investigator and she stated that pt has limited lower level of care benefits(ie. PT/OT/ST, HHC, SNF, LTACH, etc.). She also offered to assist in any discharge planning that was needed for pt. Phone #: [phone]. Lisette WHITTAKER CM
--- NOTE | 2017-05-21 15:26 | PCM.DC.SUM ---
<Carl Roberson - Last Filed: 05/21/17 15:26> Discharge Date and Diagnosis - Problem List Patient Problems: Active and Suspected Problems Hepatic steatosis (Acute) Sepsis (Acute) CAP (community acquired pneumonia) (Acute) Date of Admission: 05/18/17 Date of Discharge: 05/21/17 - Primary Discharge Diagnosis Active and Suspected Problems Acute severe sepsis 2/2 community acquired RUL pneumonia presumed gram positive and RSV bronchitis Cerebral palsy Debility 2/2 above, nonambulatory HTN, poorly controlled - Secondary Discharge Diagnosis Chronic Problems Cerebral palsy, hemiplegic (Chronic) Hospital Course and Treatment Imaging Results: CT/CTA Chest W/WO Contrast IMPRESSION: No evidence of central or proximal segmental PE. Distal segmental and subsegmental vessels cannot be assessed due to breathing motion. Scoliosis with fusion hardware causing artifact. Right sided upper lobe predominant peribronchial opacities compatible with infection/pneumonia. No evidence of pleural effusion. Hepatomegaly and hepatic steatosis RAD/Chest 1 View (Portable) IMPRESSION: No evidence for acute chest disease. RAD/Chest PA and Lateral IMPRESSION: No acute cardiopulmonary disease. No focal infiltrates appreciated on this exam. Operations: None Procedures: None Summary of Care Provided: Physical exam on day of discharge: General: Resting comfortably NAD Psych: A/Ox3 normal affect HEENT: PEARRLA AT NC-petechia on the hard palate with white mucousy spots intermittently. Neck: Supple NT CV: RRR no m/t/r/g/h Resp: CTA Abd: [id number] Soft NT no guarding or rigidity Ext: DP2+= no edema Skin: W/D normal turgor Lymph/Heme: No active bleeding or adenopathy Neuro: CN2-12 intact Hospital course: The patient is a 51 year old F with a hx of cerebral palsy, HTN, and debility who is nonambulatory who presented to the ER with SOB and productive cough. She was tachycardic and a CTA was done revealing a RUL pna. She was septic with leukocytosis, tachycardia, and lactic acidosis. She was admitted to the PCU and placed on IV rocephin and azithromycin. A respiratory panel was done with results positive for RSV. Sputum culture revealed victor m. She had no mouth or throat pain, but physical exam did reveal petechial rash and white correa on her hard palette consistent with thrush. She was placed on PO nystatin swish and spit. She was weaned off O2. She was discharged home in stable condition to complete a total of 5 days of therapy with omnicef. She completed 3 days of azithromycin while here. Her toprol was increased while she was here as she had significant HTN and some tachycardia throughout stay. She will need to check her BP as an outpatient and follow up with her PCP in 1-2 weeks. This patient was seen by Carl Roberson PA-C under the supervision of Doctor Kelvin. [] Discharge Diet: Low fat/ Low Cholesterol, 2000 mg Sodium Diet Discharge Activity: Return to Normal Activity Home Medications: Medications to take at Discharge Albuterol Aerosols [Ventolin Aerosols] 2.5 mg INHALATION Q4HWA.RT 05/18/17 Cefdinir 300 mg PO BID #2 cap 05/21/17 Metoprolol(XL)Succ [Toprol Xl (Beta Becky)] 50 mg PO DAILY #30 tab 05/21/17 Nystatin 500,000 unit PO 4X/DAY #1 bottle 05/21/17 Following Prescrptions Were Given to Patient: Cefdinir 300 mg PO BID #2 cap Metoprolol(XL)Succ [Toprol Xl (Beta Becky)] 50 mg PO DAILY #30 tab Nystatin 500,000 unit PO 4X/DAY #1 bottle Primary Care Physician: Beena Lance,Out of [Primary Care Provider] - Please follow up with your Primary Care Physician in: 1-2 weeks Disposition: Home Minutes spent on discharge:: 35 Patient Condition:: Stable Meaningful Use Info Meaningful Use Diagnoses (Choose all that apply): None applicable <Jonathan Warren - Last Filed: 05/21/17 15:46> Discharge Date and Diagnosis - Primary Discharge Diagnosis Active and Suspected Problems Hepatic steatosis (Acute) Sepsis (Acute) CAP (community acquired pneumonia) (Acute) - Secondary Discharge Diagnosis Chronic Problems Cerebral palsy, hemiplegic (Chronic) Hospital Course and Treatment Summary of Care Provided: This patient was seen in conjunction with Carl HOANG. I have independently interviewed and examined the patient and reviewed pertinent history, examination findings, laboratory and plan of management. I have reviewed the note and agree with the documented findings with the few additional points. In brief, patient is admitted for shortness of breath and productive cough and CT of finding of right upper lobe pneumonia consistent with community-acquired pneumonia. Patient was treated with IV Rocephin and Zithromax as mentioned above. Follow-up discharge process completed. Total time spent, exact 32 minutes on discharge meds reconciliation, examination, review of imaging and blood test and discussion with the patient on follow-up instructions. I have discussed my assessment with Carl HOANG and orders have been reviewed. [] Code Visit Inpatient E&M: 45196 Disch Hosp
--- NOTE | 2017-05-21 15:36 | DS.PCM_ITS ---
<Carl Roberson - Last Filed: 05/21/17 15:26> Discharge Date and Diagnosis - Problem List Patient Problems: Active and Suspected Problems Hepatic steatosis (Acute) Sepsis (Acute) CAP (community acquired pneumonia) (Acute) Date of Admission: 05/18/17 Date of Discharge: 05/21/17 - Primary Discharge Diagnosis Active and Suspected Problems Acute severe sepsis 2/2 community acquired RUL pneumonia presumed gram positive and RSV bronchitis Cerebral palsy Debility 2/2 above, nonambulatory HTN, poorly controlled - Secondary Discharge Diagnosis Chronic Problems Cerebral palsy, hemiplegic (Chronic) Hospital Course and Treatment Imaging Results: CT/CTA Chest W/WO Contrast IMPRESSION: No evidence of central or proximal segmental PE. Distal segmental and subsegmental vessels cannot be assessed due to breathing motion. Scoliosis with fusion hardware causing artifact. Right sided upper lobe predominant peribronchial opacities compatible with infection/pneumonia. No evidence of pleural effusion. Hepatomegaly and hepatic steatosis RAD/Chest 1 View (Portable) IMPRESSION: No evidence for acute chest disease. RAD/Chest PA and Lateral IMPRESSION: No acute cardiopulmonary disease. No focal infiltrates appreciated on this exam. Operations: None Procedures: None Summary of Care Provided: Physical exam on day of discharge: General: Resting comfortably NAD Psych: A/Ox3 normal affect HEENT: PEARRLA AT NC-petechia on the hard palate with white mucousy spots intermittently. Neck: Supple NT CV: RRR no m/t/r/g/h Resp: CTA Abd: [id number] Soft NT no guarding or rigidity Ext: DP2+= no edema Skin: W/D normal turgor Lymph/Heme: No active bleeding or adenopathy Neuro: CN2-12 intact Hospital course: The patient is a 51 year old F with a hx of cerebral palsy, HTN, and debility who is nonambulatory who presented to the ER with SOB and productive cough. She was tachycardic and a CTA was done revealing a RUL pna. She was septic with leukocytosis, tachycardia, and lactic acidosis. She was admitted to the PCU and placed on IV rocephin and azithromycin. A respiratory panel was done with results positive for RSV. Sputum culture revealed victor m. She had no mouth or throat pain, but physical exam did reveal petechial rash and white correa on her hard palette consistent with thrush. She was placed on PO nystatin swish and spit. She was weaned off O2. She was discharged home in stable condition to complete a total of 5 days of therapy with omnicef. She completed 3 days of azithromycin while here. Her toprol was increased while she was here as she had significant HTN and some tachycardia throughout stay. She will need to check her BP as an outpatient and follow up with her PCP in 1-2 weeks. This patient was seen by Carl Roberson PA-C under the supervision of Doctor Kelvin. [] Discharge Diet: Low fat/ Low Cholesterol, 2000 mg Sodium Diet Discharge Activity: Return to Normal Activity Home Medications: Medications to take at Discharge Albuterol Aerosols [Ventolin Aerosols] 2.5 mg INHALATION Q4HWA.RT 05/18/17 Cefdinir 300 mg PO BID #2 cap 05/21/17 Metoprolol(XL)Succ [Toprol Xl (Beta Becky)] 50 mg PO DAILY #30 tab 05/21/17 Nystatin 500,000 unit PO 4X/DAY #1 bottle 05/21/17 Following Prescrptions Were Given to Patient: Cefdinir 300 mg PO BID #2 cap Metoprolol(XL)Succ [Toprol Xl (Beta Becky)] 50 mg PO DAILY #30 tab Nystatin 500,000 unit PO 4X/DAY #1 bottle Primary Care Physician: Beena Lance,Out of [Primary Care Provider] - Please follow up with your Primary Care Physician in: 1-2 weeks Disposition: Home Minutes spent on discharge:: 35 Patient Condition:: Stable Meaningful Use Info Meaningful Use Diagnoses (Choose all that apply): None applicable <Jonathan Warren - Last Filed: 05/21/17 15:46> Discharge Date and Diagnosis - Primary Discharge Diagnosis Active and Suspected Problems Hepatic steatosis (Acute) Sepsis (Acute) CAP (community acquired pneumonia) (Acute) - Secondary Discharge Diagnosis Chronic Problems Cerebral palsy, hemiplegic (Chronic) Hospital Course and Treatment Summary of Care Provided: This patient was seen in conjunction with Carl HOANG. I have independently interviewed and examined the patient and reviewed pertinent history, examination findings, laboratory and plan of management. I have reviewed the note and agree with the documented findings with the few additional points. In brief, patient is admitted for shortness of breath and productive cough and CT of finding of right upper lobe pneumonia consistent with community-acquired pneumonia. Patient was treated with IV Rocephin and Zithromax as mentioned above. Follow-up discharge process completed. Total time spent, exact 32 minutes on discharge meds reconciliation, examination , review of imaging and blood test and discussion with the patient on follow-up instructions. I have discussed my assessment with Carl HOANG and orders have been reviewed. [] Code Visit Inpatient E&M: 72154 Disch Hosp
== END 2017-05-21 15:51 | disposition home or self-care (01) | DRG 871 ==
LOC: ED 18:00 → PCU 20:08
PROVIDERS: Physician Assistant; Admitting Provider Internal Medicine; Emergency Provider Emergency Medicine; Visit Provider Internal Medicine
DX: A41.9 Sepsis, unspecified organism (principal); J18.9 Pneumonia, unspecified organism; J96.01 Acute respiratory failure with hypoxia; K76.0 Fatty (change of) liver, not elsewhere classified; R65.20 Severe sepsis without septic shock; J20.5 Acute bronchitis due to respiratory syncytial virus; G80.9 Cerebral palsy, unspecified; I10 Essential (primary) hypertension; R53.81 Other malaise; Z23 Encounter for immunization
CPT/HCPCS: 36415; 51702; 71045; 71046; 71275; 80048; 81001; 83605; 84484; 85025; 87040; 87070; 87205; 87449; 87633; 87804; 93005; 94640; 94667; 94668; 99285; J7030; J7040; Q9967; 90686; A4216

== ENCOUNTER → 2019-11-06 09:42 | Outpatient (CLI) | payer BC, SELFPAY ==
--- NOTE | 2019-11-06 10:05 | US_ITS ---
STUDY: ABDOMINAL ULTRASOUND - RIGHT UPPER QUADRANT REASON FOR VISIT: Female, 54 years old ELEVATED LIVER ENZYMES TECHNIQUE: Ultrasound evaluation of the right upper quadrant was performed with real-time and static fry-scale imaging. TECHNICAL QUALITY: Adequate. COMPARISON: None. FINDINGS: Liver: The liver is slightly enlarged and measures 18.8 cm. There is increased echogenicity consistent with fatty infiltration. The bile ducts are within normal limits. There is hepatic color flow. The direction of portal flow is hepatopetal. There is no demonstrated mass lesion. Gallbladder: Normal distended gallbladder. The gallbladder wall measures 1.2 mm. There is a negative sonographic Peralta''s sign. There is no pericholecystic fluid. There are no gallstones. Common Bile Duct (C.B.D.): The common bile duct measures 3.5 mm. Pancreas: Normal size of the head, body and tail of the pancreas. There is increased echogenicity of the pancreas. There is no demonstrated pancreatic mass or cyst. Right Kidney: Normal size of the right kidney. The right kidney measures 9.3 cm x 4.5 cm x 3.9 cm. Normal renal cortex. The right cortex measures 1.4 cm. There is no demonstrated renal mass or cyst. There is no right hydronephrosis. US/Abdomen Limited IMPRESSION: Mild hepatomegaly with fatty infiltration of the liver. Electronically Signed: Norman Castellanos, at 14:14 EDT , Service support ,
[2019-11-06 10:31] LABS: Absolute Lymphocyte Count 2.25 X10^3/uL (0.83-4.51); Absolute Neutrophil Count 2.1 X10^3/uL (2.0-7.7); Basophil# 0.04 X10^3/uL; Basophil% 0.8 % (0-1); Eosinophils% 5.7 % (0-5); Hematocrit 44.5 % (37-47); Hemoglobin 14.2 g/dL (12.0-15.0); Lymphocyte # 2.25 X10^3/ul (4.0); Lymphocyte % 42.7 % (19-41); Mean Corp Hgb Conc 31.9 g/dL (32-36); Mean Corpuscular Hgb 29.3 pg (27.0-32.0); Mean Corpuscular Volume 91.8 fL (81-99); Mean Platelet Vol. 10.2 fl (6.2-12.0); Monocyte% 11.4 % (0-10); NRBC Flagged by Analyzer 0 % (0-5); Neutrophil # 2.08 X10^3/uL (2.7-7.7); Neutrophil % 39.4 % (47-70); Platelet Count 321 K/mm3 (150-450); RBC Distribution Width SD 43.8 fl (35.1-43.9); Red Blood Count 4.85 M/mm3 (4.2-5.4); White Blood Count 5.3 K/mm3 (4.4-11.0)
[2019-11-06 10:53] LABS: ALB/GLOB Ratio 0.8 RATIO (0.9-2.4); AST(SGOT) 58 U/L (15-37); Alanine Aminotransfer ALT/SGPT 71 U/L (13-56); Albumin, Serum 3.7 g/dL (3.2-5.0); Alkaline Phosphatase 92 U/L (45-117); Anion Gap 5 (5-15); BUN 12 mg/dL (7-18); BUN/Creat Ratio 22.6 RATIO (10-20); Calcium,Total 9.5 mg/dL (8.5-10.1); Chloride 100 mmol/L (98-107); Creatinine, Serum 0.53 mg/dL (0.55-1.02); EST Glomerular Filtration Rate 128 mL/min (>60); Est Glom Filt Rate - Afr Amer 155 mL/min (>60); Globulin 4.8 g/dL (2.2-4.2); Glucose 104 mg/dL (74-106); Potassium 3.7 mmol/L (3.5-5.1); Protein, Total 8.5 g/dL (6.4-8.2); Sodium Level 138 mmol/L (136-145)
[2019-11-06 11:31] LABS: Hepatitis B Surface Antibody Non-Reactive; Hepatitis C Antibody Non-Reactive (Nonreactive)
[2019-11-08 13:08] LABS: ANTINUCLEAR ANTIBODIES DIRECT Negative (Negative); Anti-Mitochondrial AB <20.0 Units (0.0-20.0)
== END ==
PROVIDERS: PCP Family Medicine; Referring Provider Family Medicine; Visit Provider Family Medicine
DX: R74.8 Abnormal levels of other serum enzymes (principal); R25.2 Cramp and spasm; I10 Essential (primary) hypertension
CPT/HCPCS: 36415; 76705; 80053; 83516; 85025; 86038; 86706; 86803

== ENCOUNTER 2020-02-29 11:06 | Emergency (ER) | payer BC, SELFPAY ==
[2020-02-29 11:08] VITALS: BP 159/101; PULSE 98; RESP 17; TEMP 36.6; O2SAT 96; BMI 33.3
--- NOTE | 2020-02-29 11:15 | ED.DCSUM_ITS ---
History of Present Illness Chief Complaint: Cough Informant: Patient Onset: Weeks - 1 Context: Gradual Onset Timing: Continuous Quality: [employer] cough Current Severity: Moderate Maximum Severity: Moderate Worsened by: - - (cough) - lying flat Relieved by: - - Tussin Associated Symptoms: Nasal Congestion, Diarrhea - 4d ago, now resolved, Shortness of Breath - mild wheezing, gone now, Nonproductive cough, - - loss of taste/smell. Negative for: Nausea, Vomiting, Chest Pain, Hemoptysis Narrative: 54-year-old female has had upper respiratory symptoms for the last week. She does not have asthma but started wheezing yesterday. She states she currently is not wheezing this morning but out of concern for that and the possibility of this becoming bronchitis she presents to the emergency department. She states 3 days ago on Saturday, she went to urgent care and received a Covid test that has not yet returned/resulted, the same day she called her doctor and was prescribed a azithromycin in addition to Tussin for her cough and advised to take zinc, vitamin C, vitamin D which she has been doing. She denies any other new symptoms. - Past Medical History (1) Hepatic steatosis Status: Chronic (2) Cerebral palsy, hemiplegic Status: Chronic Past Medical History - Allergies and Home Meds Allergies/Adverse Reactions: Allergies amoxicillin Adverse Reaction (Verified 02/29/20 11:07) Nausea Primary Care Physician: Yenni Williamson DO [Primary Care Provider] - Surgical History: total hip arthroplasty, - - Scoliosis repair, hamstring release, heel cord release, rotator cuff repair, tendon reattachment left thumb Smoking Status: Never smoker - Family History Maternal Family History: Reports: No pertinent history Review of Systems General: Reports: Malaise. Denies: Chills, Fever, Sweats Eyes: Denies: Visual changes - bilaterally, Diplopia ENT: Reports: Rhinorrhea, Sore throat - resolved. Denies: Bilateral ear pain Cardiovascular: Denies: Chest pain, Palpitations Respiratory: Reports: Dyspnea, Cough. Denies: Sputum, Orthopnea Gastrointestinal: Reports: Diarrhea. Denies: Abdominal pain, Nausea, Vomiting, Melena, Hematochezia Genitourinary: Denies: Dysuria, Hematuria, Frequency Musculoskeletal: Reports: Myalgias. Denies: Back pain, Swelling, Extremity Pain Skin: Denies: Rash, Wounds Neurological: Reports: Weakness - Chronic, right side. Denies: Headache, Numbness Physical Exam Vital Signs/Narrative: Vital Signs Temp Pulse Resp BP Pulse Ox 02/29/20 11:08 97.8 F 98 17 159/101 H 96 Inital Vital Signs reviewed: Yes General: Well nourished, Well developed, - - Well-appearing in no distress, conversive in full sentences Head: Normocephalic, Atraumatic Eyes: Perrl, EOMI Nose: Normal Inspection, No Rhinorrhea. Negative for: Purulent Drainage Mouth/Throat: Normal Inspection, No Posterior Erythema Neck: Supple, Nontender, No Lymphadenopathy Cardiovascular: Regular rate, Regular rhythm, No murmurs Respiratory: No distress, CTA bilaterally, Chest nontender Abdomen: Soft, Nontender, Nondistended, Normal bowel sounds Back: Nontender, Normal Inspection Extremities: Nontender, No edema Skin: Normal color, No rash Neurological: Alert, Oriented x3, Cranial nerves II-XII grossly intact, Normal Sensation, Weakness - Right side but able to move Psychological: Normal affect, Normal Mood Diagnostic/Tx/Re-eval Chest X-Ray - ED: 1 View, Read by ED Physician, Normal, Heart, Lungs, No Acute Disease Clinical Impression(s) from Imaging Studies Chest X-Ray 02/29/20 11:28 IMPRESSION: No acute abnormality is seen. Electronically Signed: Norman Castellanos, at 13:06 EST , Service support , - Medical Decision Making Although a relatively limited view due to lack of deep inspiration, my interpretation of the 1 view chest x-ray is that it is negative for any acute infiltrates. Radiology agrees. Patient is doing well and is not hypoxic. I do not think she meets any criteria for monoclonal antibiotic treatment, nor anything else at this time. I recommend she continue her prior treatment, in addition to using albuterol as needed which she has at home informed of an inhaler. She probably has COVID-19, her tests not yet returned, she was advised to quarantine as if she has it. ED Disposition - Plan for ED Patient: Disposition: Home or Assisted Living Diagnosis: COVID-19 Instructions: Coronavirus Disease 2019 (COVID-19): Caring for Yourself or Others Referrals: Yenni Williamson, DO [Primary Care Provider] - As Needed Additional Instructions: Continue your medications as prescribed, and use your albuterol inhaler as needed for wheezing
--- NOTE | 2020-02-29 11:28 | RAD_ITS ---
STUDY: X-RAY CHEST REASON FOR EXAM: Female, 54 years old. Cough, SOB, wheezing -- unable to sit completely upright TECHNIQUE: Single AP portable view of the chest. COMPARISON: Comparison is made with prior study 05/19/2017. FINDINGS: The lungs are clear and expanded. There is no demonstrated pleural abnormality. Normal size heart. Normal mediastinum and cortez. Normal visualized pulmonary arteries. Normal visualized aortic arch and descending thoracic aorta. There is a dextroscoliosis of the thoracic spine. Degenerative changes. Prior fusion in the lower thoracic upper lumbar vertebra. Prior rotator cuff surgery involving the right shoulder. There is no demonstrated abnormality of the visualized soft tissue structures of the upper abdomen. RAD/Chest 1 View (Portable) IMPRESSION: No acute abnormality is seen. Electronically Signed: Norman Castellanos, at 13:06 EST , Service support ,
[2020-02-29 11:43] VITALS: BP 159/101; PULSE 98; RESP 17; TEMP 36.6; O2SAT 96
[2020-02-29 13:09] VITALS: BP 145/77; PULSE 88; RESP 16; O2SAT 96
[2020-02-29 14:00] VITALS: O2SAT 94
== END 2020-02-29 14:03 | disposition home or self-care (01) ==
PROVIDERS: Emergency Provider Emergency Medicine; PCP Family Medicine
DX: U07.1 COVID-19 (principal); G80.8 Other cerebral palsy; Z79.82 Long term (current) use of aspirin
CPT/HCPCS: 71045; 99282

== ENCOUNTER 2020-08-02 09:38 | Outpatient (RCR) | payer BC, SELFPAY ==
--- NOTE | 2020-08-03 08:27 | HP.PTEVAL ---
Patient's Visit Information TAYLOR VIEIRA is a 54 year old F referred to Physical Therapy by Dr. Ion Williamson DO with a diagnosis of CP. Date of Evaluation: 08/02/20 Physical Therapist: Diya Villegas DPT - Visit Plan Frequency: 1x/Week Duration: 1 Week Plan: Wheelchair evaluation - Subjective She has used a wheelchair since she was 3.5 years old- she has CP and has had since . She spends all day in her chair. She has a slide board she can use- or her partner helps with a stand pivot transfer. She reports that she is unable to stand- she was able to prior to her shoulder injury in 2014- she tore her RTC during a transfer- they did do a repair but during the time she lost a lot of mobility. She uses her power chair to get around her home- Her home is accessible- fully I at home once she is in her chair and then also driving. She clicks her power chair into her car and can get herself around. Drives I to work and in the community. Works at [employer] in [place] [place] and is able to sit in her chair due to modifications made to her station. ADL's- transfer to a shower chair- uses grabbers and such to help with dressing- she has help as needed from her partner but she is able to do most of it herself. Does her own grocery shopping with her partner and cooks meals herself. She has had her current chair since 2008 and it doesn't hold a charge and has to be plugged in all the time. Sits in her wheelchair at home and only transfers- toilet, shower chair and bed. She uses a urinal most of the time unless she requires a BM. She has not had any pressure sores- can do her own weight shifting throughout the day. She does have sensation to her LE and saddle. No pain in LE, UE or spine. She moves frequently to keep her joints limber. Normal Day: transfers from her bed to w/c with stand pivot transfer- is in her chair for the day with transfers from commode and can be in community with the use of her adapted car- goes to work- comes home- transfers to shower chair and then back to w/c- then stand pivot back to bed- can perform ADL's with and Indep and with assistance. PMHx: CP, HTN Meds: see list - Objective Posture: FH, RS- scoliosis hoa placement when she was 12 years old. Gait: pt is a non-ambulator- has not ambulated since 2008- first w/c was when she was 3.5 years old. Transfers: slide board and stand pivot with SBA or min assist depending on fatigue. Sensation: WFL in core diminished to LE gross touch bilaterally. ROM: Cervical: WFL, Shoulder L: WFL Right: flexion: 110 degrees, abd: 90 degrees- Elbow: WFL, Finger dexterity is poor bilateral right worse than left. LE: Ankle: neutral, Knees: flexion 90 degrees, lacking 10 degrees of extension, hips flexion: 90 degrees, extn: lacks 20 degrees- pt is unable to lay flat due to lack of ROM- contractures due to sitting. Strength: Core: poor, UE: Shoulders: Left 4-/5, Right: 3+/5, Elbow: 4+/5 bilateral, [employer]: Left: 25lbs, Right: 20lbs. Hip: left: 1/5, Right: 2+/5, Knee: 2/5 bilateral. Ankle: trace contraction. Balance: sitting static: fair dynamic: fair minus standing: static: poor, dynamic: poor. - Rehabilitation Potential Physical Therapy Diagnosis: Patient presents with hypomobility- she has decreased core strength/stabilization, LE and UE strength, ROM, flex and muscular endurance leading to inability to perform ADL's without assistance. Rehabilitation Potential: Good - Anticipated Interventions Thank you for the opportunity to evaluate your patient. For Medicare and Medicare HMO plans, please review the plan of care and approve it. It will need to be FAXED BACK to us at [phone] for Medicare purposes. For Medicare only, by signing this I certify the plan of care. Please let me know if there are questions or concerns regarding this plan of care. Physician Signature: Date:
--- NOTE | 2021-01-09 08:29 | HP.PT.NRP ---
TAYLOR Ambrocio LETYKim was seen in my office for initial evaluation on 08/02/20. The following Plan of Care was established for this patient: Initial Frequency: 1x/Week Initial Duration: 1 Week This patient was last seen in our office . Pertinent comments regarding their Physical therapy will appear below: At this point I will be discontinuing this patient from physical therapy. I would be happy to see this patient again in the future if found appropriate by the physician. Thank you! JOHNNY WattsT
== END 2020-08-02 19:00 | disposition home or self-care (01) ==
LOC: PT 09:38
PROVIDERS: PCP Family Medicine; Referring Provider Family Medicine; Visit Provider Family Medicine
DX: G80.9 Cerebral palsy, unspecified (principal)
CPT/HCPCS: 97162

== ENCOUNTER 2020-12-14 07:59 | Outpatient (RCR) | payer BC, SELFPAY | END 2021-01-08 23:59 | LOC: WC 07:59 | PROVIDERS: PCP Family Medicine; Visit Provider Nurse Practitioner | DX: Z09 Encounter for follow-up examination after completed treatment for conditions other than malignant neoplasm (principal) ==

== ENCOUNTER → 2020-12-22 06:58 | Outpatient (CLI) | payer BC, SELFPAY ==
--- NOTE | 2020-12-22 07:12 | BI_ITS ---
MAMMOGRAPHY - BILATERAL SCREENING REASON FOR EXAM: Female, 55 years old. Routine annual screening examination. PERTINENT HISTORY: Mother with breast cancer. TECHNIQUE: Digital bilateral breast roberto (3D mammographic acquisition) in the CC and MLO projections. 2-D mediolateral oblique (MLO) and craniocaudad (CC) views of both breasts were obtained. CAD: Full Field Digital Mammography with Computer Added Detection was performed. Limited examination due to the patient''s paraplegia. COMPARISON: None. FINDINGS: Breast Composition: The breasts are heterogeneously dense, which may obscure small masses. Cluster of microcalcification is seen in the central medial aspect of the right breast. Biopsy recommended. No other significant abnormalities are identified. BI/SCRN MAMM (CAD)W/ROBERTO BILAT IMPRESSION: Cluster of microcalcification seen in the central medial aspect of the right breast. Biopsy is recommended. ASSESSMENT CATEGORY: BIRADS Category 4: Suspicious - Biopsy Should Be Considered. A letter regarding these results will be sent to the patient by the facility within 30 days. Approximately 10% of breast cancers are not detected by mammography. A normal mammogram should not delay biopsy of a clinically suspicious abnormality. [id number] Electronically Signed: Norman Castellanos MD at 14:41 EDT , Service support ,
== END ==
PROVIDERS: PCP Family Medicine; Referring Provider Family Medicine; Visit Provider Family Medicine
DX: Z12.31 Encounter for screening mammogram for malignant neoplasm of breast (principal)
CPT/HCPCS: 77063; 77067

== ENCOUNTER 2021-01-31 10:00 | Outpatient (RCR) | payer BC, SELFPAY | END 2021-02-07 23:59 | LOC: DC 10:00 | PROVIDERS: PCP Family Medicine; Referring Provider Family Medicine; Visit Provider Family Medicine | DX: E11.9 Type 2 diabetes mellitus without complications (principal) | CPT/HCPCS: 97802; G0108 ==

== ENCOUNTER 2021-02-23 08:00 | Outpatient (RCR) | payer BC, SELFPAY | END 2021-03-10 23:59 | LOC: DC 08:00 | PROVIDERS: PCP Family Medicine; Referring Provider Family Medicine; Visit Provider Family Medicine | DX: E11.9 Type 2 diabetes mellitus without complications (principal) | CPT/HCPCS: 97803; G0108 ==

== ENCOUNTER 2021-03-15 08:15 | Outpatient (RCR) | payer BC, SELFPAY | END 2021-04-10 23:59 | LOC: DC 08:15 | PROVIDERS: PCP Family Medicine; Referring Provider Family Medicine; Visit Provider Family Medicine | DX: E11.9 Type 2 diabetes mellitus without complications (principal); Z71.3 Dietary counseling and surveillance | CPT/HCPCS: 97803 ==

== ENCOUNTER 2021-04-19 08:00 | Outpatient (RCR) | payer BC, SELFPAY | END 2021-05-08 23:59 | LOC: DC 08:00 | PROVIDERS: PCP Family Medicine; Referring Provider Family Medicine; Visit Provider Family Medicine | DX: E11.9 Type 2 diabetes mellitus without complications (principal) | CPT/HCPCS: 97803; G0108 ==

== ENCOUNTER 2021-05-24 08:00 | Outpatient (RCR) | payer BC, SELFPAY | END 2021-06-08 23:59 | LOC: DC 08:00 | PROVIDERS: PCP Family Medicine; Referring Provider Family Medicine; Visit Provider Family Medicine | DX: E11.9 Type 2 diabetes mellitus without complications (principal) | CPT/HCPCS: 97803; G0108 ==

== ENCOUNTER 2021-06-06 06:40 | Outpatient (CLI) | payer BC, SELFPAY ==
[2021-06-06 07:27] LABS: Anion Gap 6 (5-15); BUN 15 mg/dL (7-18); BUN/Creat Ratio 32.8 RATIO (10-20); Chloride 100 mmol/L (98-107); Creatinine, Serum 0.46 mg/dL (0.55-1.02); EST Glomerular Filtration Rate 151 mL/min (>60); Est Glom Filt Rate - Afr Amer 182 mL/min (>60); Glucose 105 mg/dL (74-106); Sodium Level 137 mmol/L (136-145)
== END 2021-06-06 23:59 | disposition home or self-care (01) ==
LOC: LAB 06:42
PROVIDERS: PCP Family Medicine; Referring Provider Family Medicine; Visit Provider Family Medicine
DX: E87.6 Hypokalemia (principal)
CPT/HCPCS: 36415; 80048

== ENCOUNTER 2021-06-13 06:36 | Outpatient (CLI) | payer BC, SELFPAY ==
[2021-06-13 07:58] LABS: Anion Gap 3 (5-15); BUN 12 mg/dL (7-18); BUN/Creat Ratio 20.4 RATIO (10-20); Calcium,Total 9.7 mg/dL (8.5-10.1); Chloride 101 mmol/L (98-107); Creatinine, Serum 0.59 mg/dL (0.55-1.02); EST Glomerular Filtration Rate 112 mL/min (>60); Est Glom Filt Rate - Afr Amer 136 mL/min (>60); Glucose 89 mg/dL (74-106); Potassium 3.4 mmol/L (3.5-5.1); Sodium Level 136 mmol/L (136-145)
== END 2021-06-13 23:59 | disposition home or self-care (01) ==
LOC: LAB 06:36
PROVIDERS: PCP Family Medicine; Referring Provider Family Medicine; Visit Provider Family Medicine
DX: E87.6 Hypokalemia (principal)
CPT/HCPCS: 36415; 80048

== ENCOUNTER 2021-06-15 18:31 | Emergency (ER) | payer BC, SELFPAY ==
[2021-06-15 18:33] VITALS: BP 127/59; PULSE 84; RESP 17; TEMP 35.3; O2SAT 98; BMI 38.3
--- NOTE | 2021-06-15 18:47 | EX.ED.DYSGE1 ---
HPI History of Present Illness Chief Complaint: Other, Pain/Inj Detail of Chief Complaint: Cramping in left leg and both upper extremities Informant: patient Narrative Narrative: Patient presents to the emergency department complaint of cramping in the left lower extremity in her hamstring area as well as both arms. Symptoms start about 2 days ago. Patient states that her potassium has been running a little bit low lately. Patient states that she had a blood draw 2 days ago showed a potassium of 3.4. Patient has had cramping like this before. Patient states that when she got in bed in a certain position her cramps resolved. Right now she is currently comfortable. She denies recent illness. She is had no vomiting or diarrhea. Prior similar symptoms: Yes PFSH [facility] Medical History (Updated 06/15/21 @ 20:[address] Edwar Tijerina DO) CAP (community acquired pneumonia) Cerebral palsy, hemiplegic Decubitus ulcer of right buttock, stage 2 Hepatic steatosis Hypertension Microcalcification of right breast on mammogram Partial hamstring tear Sepsis Short heel cord Home Medications indapamide 2.5 mg PO DAILY 02/29/20 [History Last Taken Unknown] ondansetron 4 mg disintegrating tablet 4 mg PO Q6H PRN #20 tab 04/16/21 [Rx Last Taken Unknown] Allergy/AdvReac Type Severity Reaction Status Date / Time amoxicillin AdvReac Nausea Verified 06/15/21 18:35 Family History Mother Breast cancer Surgical History H/O thumb surgery Previous back surgery S/P rotator cuff repair Status post hip surgery Status post left hip replacement Social History Smoking Status: Never smoker alcohol intake: never ROS ROS ED Constitutional Constitutional ED: Reports systems reviewed and no addt'l complaints, except as documented; Denies body ache(s), change in weight or chills Eyes Eyes: Denies acute decrease in peripheral vision, change in vision, double vision or loss of vision ENT ENT ED: Reports none; Denies ear pain, lip swelling, loss taste/smell, neck pain, otalgia or sore throat Cardiovascular Cardiovascular: Reports none; Denies abdominal pain, chest pain with activity, leg edema, lightheadedness, palpitations, rapid heart rate or syncope Respiratory/Chest Respiratory/Chest: Reports none; Denies change in mental status, dry cough, dyspnea, hemoptysis, shortness of breath at rest or shortness of breath with exertion Gastrointestinal Gastrointestinal: Reports none; Denies abdominal pain, change in stool character, diarrhea, hematemesis, hematochezia, melena, rectal bleeding or vomiting Genitourinary Genitourinary ED: Reports none; Denies abdominal discomfort, anuria, dysuria, genital pain or polyuria Musculoskeletal Musculoskeletal: Reports none, myalgias and other Details: Cramping of left lower extremity and bilateral upper extremities ; Denies arthralgias, back pain, difficulty walking, extremity pain or muscle weakness Integumentary Reports none; Denies abscess or rash Neurologic Neurologic: Reports none; Denies abnormal gait, confusion, focal weakness, frequent falls, headache(s), loss of vision, numbness, paresthesias, radicular pain, vertigo or weakness Psychiatric Psychiatric: Reports systems reviewed and no addt'l complaints, except as documented and none; Denies behavioral changes, confusion, difficulty concentrating, hallucinations, suicidal ideation, tactile hallucinations or visual hallucinations Endocrine Endocrinology: Denies none, cold intolerance, excessive sweating, fatigue or heat intolerance Hematologic/Lymphatic Hematologic/Lymphatic: Reports none; Denies anemia, easy bleeding or easy bruising Allergic/Immunologic Allergic/Immunologic ED: Denies as per HPI, none, lip swelling, mouth swelling, throat swelling, tongue swelling or hives EXAM Physical Exam Const Vital Signs: 06/15/21 18:33 06/15/21 19:19 Temperature 95.6 F L Temperature Source Temporal Pulse Rate 84 Respiratory Rate 17 Respiratory Effort Normal Non-Labored Respiratory Pattern Normal Blood Pressure 127/59 H Blood Pressure Mean 81 Pulse Ox 98 Oxygen Delivery Method Room Air Positive well nourished and well developed General Appearance ED: well developed and NAD HEENT Reports TM's clear and moist mucous membranes normocephalic and atraumatic; Negative for trauma or tenderness Tympanic Membrane ED: Yes TM's clear Eyes PERRL and EOMs intact bilaterally General Eye ED: Negative for pale conjunctiva or scleral icterus Neck no lymphadenopathy, supple and no JVD General: Negative for tenderness Chest Wall inspection of chest normal and palpation of chest normal Chest: Negative for tenderness Resp normal respiratory effort and clear to auscultation bilaterally Effort and Inspection: Negative for respiratory distress or pain with movement Auscultation: Negative for rhonchi, wheezes or diminished lung sounds Cardio regular rate, regular rhythm, S1 normal heart sound, S2 normal heart sound and no murmurs Peripheral Pulses: pulses 2+ throughout GI normal to inspection, nondistended, normoactive bowel sounds, soft to palpation, non-tender, non-distended and no masses Back/Spine no CVA tenderness and no thoracic nor lumbar tenderness Extremity normal to inspection General Extremety ED: Negative for edema General Extremity: Negative for edema Neuro oriented x3, CN's II-XII intact bilaterally, no sensory deficits noted and gait normal Sensorium / Orientation: awake, alert, oriented to person, oriented to place and oriented to time Motor Exam: strength 5/5 throughout and strength abnormal Psych mental status grossly normal Skin no rashes or lesions noted and no wounds MDM MDM MDM Narrative Medical decision making narrative: IV line established on arrival. Patient was given a liter mostly of fluid bolus. Lab work was normal with a normal potassium as well as magnesium and calcium. Patient was feeling improved. She thinks that maybe she did not drink enough water today. At this point patient will be discharged to home with recommendation that she follow-up with her primary care physician within next 3 to 5 days. She is to return if condition should worsen anyway. Lab Data Attestation: I reviewed the patient's lab results. Labs: Laboratory Results - last 24 hr 06/15/21 06/15/21 19:00 19:00 WBC 7.7 RBC 4.72 Hgb 14.0 Hct 42.2 MCV 89.4 MCH 29.7 MCHC 33.2 RDW Std Deviation 42.4 RDW Coeff of Anabelle 12.9 Plt Count 335 MPV 9.6 Immature Gran % (Auto) 0.300 Neut % (Auto) 48.5 Lymph % (Auto) 37.5 Elk % (Auto) 8.5 Eos % (Auto) 4.7 Baso % (Auto) 0.5 Absolute Neuts (auto) 3.7 Absolute Lymphs (auto) 2.87 Nucleated RBC % 0 Differential Comment SCANNED Sodium 137 Potassium 3.7 Chloride 104 Carbon Dioxide 29.0 Anion Gap 4 L BUN 16 Creatinine 0.46 L Estim Creat Clear Calc 188.00 Est GFR (MDRD) Af Amer 179 Est GFR (MDRD) Non-Af 148 BUN/Creatinine Ratio 34.4 H Glucose 98 Calcium 10.2 H Magnesium 2.0 Discharge Plan Triage Chief Complaint: Other, Pain/Inj ED Provider: Edwar Tijerina Dx/Rx/DC Orders Clinical Impression: Muscle cramps Instructions: ED Leg Spasm, ED Muscle Spasm Prescriptions: No Action ondansetron 4 mg tablet,disintegrating 4 mg PO Q6H PRN (Reason: nausea and vomiting) Qty: 20 RF: 0 indapamide 2.5 MG tablet 2.5 mg PO DAILY RF: 0 Primary Care Provider: Ion Williamson Referrals: Ion Williamson DO [Primary Care Provider] - 5-7 Days Disposition Disposition: Home, Self Care
[2021-06-15 19:15] LABS: Absolute Lymphocyte Count 2.87 X10^3/uL (0.83-4.51); Absolute Neutrophil Count 3.7 X10^3/uL (2.0-7.7); Basophil# 0.04 X10^3/uL; Basophil% 0.5 % (0-1); Eosinophil# 0.36 X10^3/uL; Eosinophils% 4.7 % (0-5); Hematocrit 42.2 % (37-47); Lymphocyte # 2.87 X10^3/ul (0.83-4.51); Lymphocyte % 37.5 % (19-41); Mean Corp Hgb Conc 33.2 g/dL (32-36); Mean Corpuscular Hgb 29.7 pg (27.0-32.0); Mean Corpuscular Volume 89.4 fL (81-99); Mean Platelet Vol. 9.6 fl (6.2-12.0); Monocyte# 0.65 X10^3/uL; Monocyte% 8.5 % (0-10); NRBC Flagged by Analyzer 0 % (0-5); Neutrophil # 3.72 X10^3/uL (2.7-7.7); Neutrophil % 48.5 % (47-70); POSITIVE COUNT YES; Platelet Count 335 K/mm3 (150-450); RBC Distribution Width CV 12.9 % (11.6-14.6); RBC Distribution Width SD 42.4 fl (35.1-43.9); Red Blood Count 4.72 M/mm3 (4.2-5.4); White Blood Count 7.7 K/mm3 (4.4-11.0)
[2021-06-15] MEDS: 0.9% Normal Saline 1,000 ML 150 ML IV (19:18)
[2021-06-15 19:27] LABS: Anion Gap 4 (5-15); BUN 16 mg/dL (7-18); BUN/Creat Ratio 34.4 RATIO (10-20); Calcium,Total 10.2 mg/dL (8.5-10.1); Chloride 104 mmol/L (98-107); Creatinine, Serum 0.46 mg/dL (0.55-1.02); EST Glomerular Filtration Rate 148 mL/min (>60); Est Glom Filt Rate - Afr Amer 179 mL/min (>60); Glucose 98 mg/dL (74-106); Potassium 3.7 mmol/L (3.5-5.1); Sodium Level 137 mmol/L (136-145)
[2021-06-15 19:49] LABS: Differential Indicated SCAN CRITERIA MET
[2021-06-15 19:50] LABS: Differential Comment SCANNED
[2021-06-15 20:40] VITALS: RESP 18
== END 2021-06-15 20:55 | disposition home or self-care (01) ==
PROVIDERS: Emergency Provider Emergency Medicine; PCP Family Medicine; Visit Provider Emergency Medicine
DX: R25.2 Cramp and spasm (principal)
CPT/HCPCS: 80048; 83735; 85025; 99283; J7030; A4216

== ENCOUNTER 2021-07-05 08:00 | Outpatient (RCR) | payer BC, SELFPAY | END 2021-07-08 23:59 | LOC: DC 08:00 | PROVIDERS: PCP Family Medicine; Referring Provider Family Medicine; Visit Provider Family Medicine | DX: E11.9 Type 2 diabetes mellitus without complications (principal) | CPT/HCPCS: 97803; G0108 ==

== ENCOUNTER → 2021-10-16 | Outpatient (CLI) | payer BC, SELFPAY ==
[2021-10-16 07:28] LABS: Absolute Lymphocyte Count 2.89 X10^3/uL (0.83-4.51); Absolute Neutrophil Count 2.3 X10^3/uL (2.0-7.7); Basophil# 0.03 X10^3/uL; Basophil% 0.5 % (0-1); Eosinophil# 0.28 X10^3/uL; Eosinophils% 4.6 % (0-5); Hematocrit 40.1 % (37-47); Hemoglobin 12.9 g/dL (12.0-15.0); Lymphocyte # 2.89 X10^3/ul (0.83-4.51); Lymphocyte % 47.3 % (19-41); Mean Corp Hgb Conc 32.2 g/dL (32-36); Mean Corpuscular Volume 90.1 fL (81-99); Mean Platelet Vol. 10.2 fl (6.2-12.0); Monocyte# 0.61 X10^3/uL; NRBC Flagged by Analyzer 0 % (0-5); Neutrophil % 37.6 % (47-70); Platelet Count 309 K/mm3 (150-450); RBC Distribution Width CV 13.5 % (11.6-14.6); RBC Distribution Width SD 44.3 fl (35.1-43.9); Red Blood Count 4.45 M/mm3 (4.2-5.4); White Blood Count 6.1 K/mm3 (4.4-11.0)
[2021-10-16 08:05] LABS: ALB/GLOB Ratio 0.7 RATIO (0.9-2.4); AST(SGOT) 28 U/L (15-37); Alanine Aminotransfer ALT/SGPT 34 U/L (13-56); Albumin, Serum 3.2 g/dL (3.2-5.0); Alkaline Phosphatase 73 U/L (45-117); Anion Gap 5 (5-15); BUN 9 mg/dL (7-18); BUN/Creat Ratio 19.6 RATIO (10-20); Calcium,Total 9.5 mg/dL (8.5-10.1); Chloride 102 mmol/L (98-107); Cholesterol 130 mg/dL (200); Creatinine, Serum 0.46 mg/dL (0.55-1.02); EST Glomerular Filtration Rate 149 mL/min (>60); Est Glom Filt Rate - Afr Amer 181 mL/min (>60); Globulin 4.6 g/dL (2.2-4.2); Glucose 100 mg/dL (74-106); Hemoglobin A1c 6.1 % (3.8-5.6); High Density Lipoprotein 39 mg/dL; Potassium 3.2 mmol/L (3.5-5.1); Protein, Total 7.8 g/dL (6.4-8.2); Sodium Level 136 mmol/L (136-145); Triglycerides 128 mg/dL; Very Low Density Lipoprotein 26 mg/dL (5-40)
== END | disposition home or self-care (01) ==
PROVIDERS: PCP Family Medicine
DX: E11.69 Type 2 diabetes mellitus with other specified complication (principal)
CPT/HCPCS: 36415; 80053; 80061; 83036; 85025

== ENCOUNTER 2021-11-14 07:29 | Outpatient (RCR) | payer BC, SELFPAY | END 2021-12-08 23:59 | LOC: DC 07:29 | PROVIDERS: PCP Family Medicine; Referring Provider Family Medicine; Visit Provider Family Medicine | DX: E11.9 Type 2 diabetes mellitus without complications (principal); E87.6 Hypokalemia | CPT/HCPCS: 97803 ==

== ENCOUNTER → 2022-01-30 | Outpatient (CLI) | payer BC, SELFPAY ==
[2022-01-30 07:49] LABS: Microalbumin,Random Urine 7.7 mg/L (NO RANGE EST.); Microalbumin:Creatinine Ratio 8.3 mg/g CRE (<30 mg/g CRE)
[2022-01-30 07:52] LABS: ALB/GLOB Ratio 0.7 RATIO (0.9-2.4); AST(SGOT) 28 U/L (15-37); Alanine Aminotransfer ALT/SGPT 40 U/L (13-56); Albumin, Serum 3.3 g/dL (3.2-5.0); Alkaline Phosphatase 70 U/L (45-117); Anion Gap 8 (5-15); BUN 13 mg/dL (7-18); BUN/Creat Ratio 30.5 RATIO (10-20); Chloride 100 mmol/L (98-107); Cholesterol 127 mg/dL (200); Creatinine, Serum 0.43 mg/dL (0.55-1.02); EST Glomerular Filtration Rate 163 mL/min (>60); Est Glom Filt Rate - Afr Amer 197 mL/min (>60); Globulin 4.8 g/dL (2.2-4.2); Glucose 97 mg/dL (74-106); High Density Lipoprotein 39 mg/dL; Potassium 3.2 mmol/L (3.5-5.1); Protein, Total 8.1 g/dL (6.4-8.2); Sodium Level 138 mmol/L (136-145); Triglycerides 114 mg/dL; Very Low Density Lipoprotein 23 mg/dL (5-40)
[2022-01-30 08:22] LABS: Hemoglobin A1c 6.4 % (3.8-5.6)
[2022-01-31 15:08] LABS: PROEL- A/G Ratio 0.9 (0.7-1.7); PROEL- Albumin 3.6 g/dL (2.9-4.4); PROEL- Alpha-1 Globulin 0.2 g/dL (0.0-0.4); PROEL- Alpha-2 Globulin 0.9 g/dL (0.4-1.0); PROEL- Beta Globulin 1.1 g/dL (0.7-1.3); PROEL- Gamma Globulin 1.8 g/dL (0.4-1.8); PROEL- TOTAL PROTEIN 7.6 g/dL (6.0-8.5)
== END | disposition home or self-care (01) ==
LOC: LAB 06:33
PROVIDERS: PCP Family Medicine; Referring Provider Family Medicine; Visit Provider Family Medicine
DX: E11.9 Type 2 diabetes mellitus without complications (principal); I10 Essential (primary) hypertension; R77.1 Abnormality of globulin
CPT/HCPCS: 36415; 80053; 80061; 82043; 82570; 83036; 84165

== ENCOUNTER 2022-03-10 15:37 | Emergency (ER) | payer BC, SELFPAY ==
[2022-03-10 15:39] VITALS: BP 142/84; PULSE 106; RESP 18; TEMP 36.1; O2SAT 96; BMI 38.1
--- NOTE | 2022-03-10 15:55 | ED.VIS.DYS ---
HPI History of Present Illness Chief Complaint: Cough Narrative Narrative: 56-year-old female past medical history of asthma, hemiplegic cerebral palsy presents with her because of bronchitis and coughing with shortness of breath. They state that she [facility] and was diagnosed with bronchitis. She was given an azithromycin Z-Hans and DuoNeb aerosolized treatments. She used that but states that she becomes more short of breath and coughing before the 4 to 6 hours is up when she has to use another 1. She completed her antibiotics. She presents because of the continued cough and shortness of breath. [facility] Medical History CAP (community acquired pneumonia) Cerebral palsy, hemiplegic Contact with and (suspected) exposure to other viral communicable diseases Decubitus ulcer of right buttock, stage 2 Hepatic steatosis Hypertension Microcalcification of right breast on mammogram Partial hamstring tear Sepsis Short heel cord Home Medications indapamide 2.5 mg tablet 2.5 mg PO DAILY 02/29/20 [History Last Taken Unknown] albuterol sulfate 1.25 mg/3 mL solution for nebulization 1.25 mg inhalation Q4H 03/06/22 [History Last Taken Unknown] albuterol sulfate 90 mcg/actuation breath activated powder inhaler 2 inh inhalation Q6H PRN WHEEZING 03/06/22 [History Last Taken Unknown] azithromycin 250 mg tablet See Rx Instructions PO .COMPLEX #6 tabs 03/06/22 [Rx Last Taken Unknown] diazepam 5 mg tablet 5 mg PO QHS PRN Anxiety 03/06/22 [History Last Taken Unknown] ipratropium 0.5 mg-albuterol 3 mg (2.5 mg base)/3 mL nebulization soln 3 ml inhalation 6XD 5 days #90 mL 03/06/22 [Rx Last Taken Unknown] potassium chloride 20 mEq oral packet (Klor-Con) 20 meq PO DAILY 03/06/22 [History Last Taken Unknown] prednisone 20 mg tablet 40 mg PO DAILY #14 tabs 03/10/22 [Rx Last Taken Unknown] Allergy/AdvReac Type Severity Reaction Status Date / Time amoxicillin AdvReac Nausea Verified 03/10/22 15:39 Family History Mother Breast cancer Surgical History H/O thumb surgery Previous back surgery S/P rotator cuff repair Status post hip surgery Status post left hip replacement Social History Smoking Status: Never smoker alcohol intake: never ROS ROS ED ROS Narrative Constitutional: No fever, no chills. HEENT: No sore throat. No neck pain. No loss of vision. No rhinorrhea. Cardiovascular: No chest pain. No palpitations. No pedal edema. Respiratory: Positive cough, positive shortness of breath. Positive orthopnea. Abdominal: No abdominal pain. No nausea. No vomiting. Genitourinary: No dysuria. No hematuria. Musculoskeletal: No myalgias. No arthralgias. Neurologic: No headaches. No dizziness. No lightheadedness. Skin: No rash. No change in color. Psychiatric: No depression. No anxiety. EXAM Physical Exam Narrative Exam Narrative: Afebrile. Vital signs noted. HEENT: Normocephalic. Atraumatic. PERRL, EOMI. Neck soft and supple. No point tenderness or step off. Cardiovascular: Regular rate and rhythm with intermittent tachycardia. No murmurs, rubs, or gallops appreciated. Respiratory: No tachypnea. Decreased breath sounds bilateral bases with occasional rhonchi. No distress. Speaking in full sentences. Gastrointestinal: Abdomen soft, nontender, with normoactive bowel sounds. No rebound or guarding. Neurological: Awake. Alert. Nonfocal, nonlateralizing. Skin: No rash. Normal color. No pallor. Musculoskeletal: No pedal edema. Full range of motion extremities. Const Vital Signs: 03/10/22 15:39 03/10/22 15:56 Temperature 97 F L Temperature Source Temporal Pulse Rate 106 H Respiratory Rate 18 Respiratory Effort Normal Respiratory Depth Normal Respiratory Pattern Normal Blood Pressure 142/84 H Blood Pressure Mean 103 Pulse Ox 96 Oxygen Delivery Method Room Air MDM MDM MDM Narrative Medical decision making narrative: Pulse ox is 97% on room air without evidence of hypoxia. Chest x-ray is obtained and she was given prednisone loading dose of 60 mg which she states she has taken previously. Chest x-ray interpreted by myself shows no acute process, no discrete infiltrate. Regardless, she has already been treated with a Z-Hans. I reviewed the radiology review/report which shows left lung base atelectasis but no acute process otherwise. At this point in time, she was written a prescription for prednisone burst for the next 7 days. She will follow-up with her primary care physician and continue her DuoNeb aerosolized treatments. Disposition is discharged home in stable condition. Radiography Diagnostic Testing: Clinical Impression(s) from Imaging Studies Chest X-Ray 03/10/22 16:02 IMPRESSION: Lateral left lung base atelectasis. Electronically Signed: Pavel Salmeron MD at 16:21 EST , Discharge Plan Triage Chief Complaint: Cough ED Provider: Baldo Brooks Dx/Rx/DC Orders Clinical Impression: Bronchitis, Atelectasis Instructions: Atelectasis, ED Atelectasis, ED Bronchitis, No Antibiotic (Adult) Prescriptions: New prednisone 20 mg tablet 40 mg PO DAILY Qty: 14 0RF No Action albuterol sulfate 90 mcg/actuation aerosol powdr breath activated 2 inh inhalation Q6H PRN (Reason: WHEEZING) albuterol sulfate 1.25 mg/3 mL solution for nebulization 1.25 mg inhalation Q4H diazepam 5 mg tablet 5 mg PO QHS PRN (Reason: Anxiety) potassium chloride [Klor-Con] 20 mEq packet 20 meq PO DAILY ipratropium-albuterol 0.5 mg-3 mg(2.5 mg base)/3 mL solution for nebulization 3 ml inhalation 6XD 5 Days Qty: 90 0RF azithromycin 250 mg tablet See Rx Instructions PO .COMPLEX Qty: 6 0RF Rx Instructions: take 500 mg today (day 1), then 250 mg for 4 days (days 2-5) PO indapamide 2.5 MG tablet 2.5 mg PO DAILY Label Comments: TAKE 1 TABLET BY MOUTH ONCE DAILY Primary Care Provider: Ion Williamson Referrals: Ion Williamson DO [Primary Care Provider] - 5-7 Days Disposition Disposition: Home, Self Care
--- NOTE | 2022-03-10 16:02 | RAD_ITS ---
INDICATION: Cough, SOB EXAMINATION/TECHNIQUE: X-RAY - XR Chest 1 View COMPARISON: 02/29/2020 FINDINGS: LINES/DEVICES: None. LUNGS: Lateral left lung base atelectasis. No consolidation, edema or effusion. No pneumothorax. MEDIASTINUM AND CARDIOVASCULAR STRUCTURES: Cardiac silhouette not enlarged. Central airways and mediastinal contour are unremarkable. BONES AND SOFT TISSUES: Partial redemonstration of thoracolumbar instrumentation fusion. RAD/Chest 1 View (Portable) IMPRESSION: Lateral left lung base atelectasis. Electronically Signed: Pavel Salmeron MD at 16:21 EST ,
[2022-03-10] MEDS: predniSONE 20 MG Tablet 60 MG PO (16:13)
== END 2022-03-10 16:41 | disposition home or self-care (01) ==
PROVIDERS: Emergency Provider Emergency Medicine; PCP Family Medicine; Visit Provider Emergency Medicine
DX: J40 Bronchitis, not specified as acute or chronic (principal); J98.11 Atelectasis; I10 Essential (primary) hypertension; R06.02 Shortness of breath
CPT/HCPCS: 71045; 99283

== ENCOUNTER 2022-03-20 07:14 | Outpatient (RCR) | payer BC, SELFPAY | END 2022-04-10 23:59 | LOC: DC 07:14 | PROVIDERS: PCP Family Medicine; Referring Provider Family Medicine; Visit Provider Family Medicine | DX: E11.9 Type 2 diabetes mellitus without complications; E66.9 Obesity, unspecified | CPT/HCPCS: 97803 ==

== ENCOUNTER 2022-05-03 07:44 | Outpatient (RCR) | payer BC, SELFPAY | END 2022-05-08 23:59 | LOC: DC 07:44 | PROVIDERS: PCP Family Medicine; Referring Provider Family Medicine; Visit Provider Family Medicine | DX: E11.9 Type 2 diabetes mellitus without complications (principal) | CPT/HCPCS: 97803 ==

== ENCOUNTER → 2022-05-07 | Outpatient (CLI) | payer BC, SELFPAY | END | disposition home or self-care (01) | LOC: LAB 07:12 | PROVIDERS: PCP Family Medicine; Referring Provider Family Medicine; Visit Provider Family Medicine | DX: E11.9 Type 2 diabetes mellitus without complications (principal); I10 Essential (primary) hypertension | CPT/HCPCS: 36415; 83036 ==

== ENCOUNTER 2022-05-31 07:35 | Outpatient (RCR) | payer BC, SELFPAY ==
[2022-05-31 08:05] LABS: Microalbumin,Random Urine < 5.0 mg/L (NO RANGE EST.)
--- NOTE | 2022-05-31 08:15 | RAD_ITS ---
INDICATION: ATELESTASIS OF LEFT LUNG EXAMINATION/TECHNIQUE: X-RAY - XR Chest 2 Views COMPARISON: 03/10/2022. FINDINGS: LINES/DEVICES: None. LUNGS: No consolidation, edema or effusion. No pneumothorax. Left lobe atelectasis resolved. MEDIASTINUM AND CARDIOVASCULAR STRUCTURES: Cardiac silhouette not enlarged. Central airways and mediastinal contour are unremarkable. BONES AND SOFT TISSUES: Thoracolumbar fusion is again noted with moderate residual dextro scoliosis. RAD/Chest PA and Lateral IMPRESSION: No radiographic evidence of acute cardiopulmonary disease. Electronically Signed: Biju Rodriguez MD, PERRY at 11:32 EDT ,
== END 2022-06-08 23:59 ==
LOC: DC 07:35
PROVIDERS: PCP Family Medicine; Referring Provider Family Medicine; Visit Provider Family Medicine
DX: E11.65 Type 2 diabetes mellitus with hyperglycemia (principal)
CPT/HCPCS: 71046; 82043; 82570; 97803

== ENCOUNTER → 2022-07-16 | Outpatient (CLI) | payer BC, SELFPAY ==
[2022-07-16 08:21] LABS: Hemoglobin A1c 6.8 % (3.8-5.6)
== END | disposition home or self-care (01) ==
LOC: LAB 07:31
PROVIDERS: PCP Family Medicine; Referring Provider Family Medicine; Visit Provider Family Medicine
DX: E11.65 Type 2 diabetes mellitus with hyperglycemia (principal)
CPT/HCPCS: 36415; 83036

== ENCOUNTER 2022-08-14 07:34 | Outpatient (RCR) | payer BC, SELFPAY | END 2022-09-07 23:59 | LOC: DC 07:34 | PROVIDERS: PCP Family Medicine; Referring Provider Family Medicine; Visit Provider Family Medicine | DX: E11.65 Type 2 diabetes mellitus with hyperglycemia (principal) | CPT/HCPCS: 97803 ==

== ENCOUNTER 2022-10-16 07:28 | Outpatient (RCR) | payer BC, SELFPAY | END 2022-11-08 23:59 | LOC: DC 07:28 | PROVIDERS: PCP Family Medicine; Referring Provider Family Medicine; Visit Provider Family Medicine | DX: E11.65 Type 2 diabetes mellitus with hyperglycemia (principal) | CPT/HCPCS: 97803 ==

== ENCOUNTER 2023-01-01 07:32 | Outpatient (RCR) | payer BC, SELFPAY | END 2023-01-08 23:59 | LOC: DC 07:32 | PROVIDERS: PCP Family Medicine; Referring Provider Family Medicine; Visit Provider Family Medicine | DX: E11.65 Type 2 diabetes mellitus with hyperglycemia (principal) | CPT/HCPCS: 97803 ==

== ENCOUNTER → 2023-01-25 | Outpatient (CLI) | payer BC, SELFPAY ==
[2023-01-25 07:50] LABS: Absolute Lymphocyte Count 2.61 X10^3/uL (0.83-4.51); Absolute Neutrophil Count 2.5 X10^3/uL (2.0-7.7); Basophil# 0.05 X10^3/uL; Basophil% 0.8 % (0-1); Eosinophil# 0.32 X10^3/uL; Eosinophils% 5.3 % (0-5); Hematocrit 41.4 % (37-47); Hemoglobin 13.2 g/dL (12.0-15.0); Lymphocyte # 2.61 X10^3/ul (0.83-4.51); Lymphocyte % 42.9 % (19-41); Mean Corp Hgb Conc 31.9 g/dL (32-36); Mean Corpuscular Hgb 28.7 pg (27.0-32.0); Monocyte# 0.64 X10^3/uL; Monocyte% 10.5 % (0-10); NRBC Flagged by Analyzer 0 % (0-5); Neutrophil # 2.47 X10^3/uL (2.7-7.7); Neutrophil % 40.5 % (47-70); Platelet Count 318 K/mm3 (150-450); RBC Distribution Width CV 13.1 % (11.6-14.6); RBC Distribution Width SD 42.8 fl (35.1-43.9); White Blood Count 6.1 K/mm3 (4.4-11.0)
[2023-01-25 08:47] LABS: ALB/GLOB Ratio 0.7 RATIO (0.9-2.4); AST(SGOT) 33 U/L (15-37); Alanine Aminotransfer ALT/SGPT 43 U/L (13-56); Albumin, Serum 3.2 g/dL (3.2-5.0); Alkaline Phosphatase 75 U/L (45-117); Anion Gap 4 (5-15); BUN 13 mg/dL (7-18); BUN/Creat Ratio 28.3 RATIO (10-20); Calcium,Total 9.6 mg/dL (8.5-10.1); Chloride 101 mmol/L (98-107); Cholesterol 129 mg/dL (200); Creatinine, Serum 0.46 mg/dL (0.55-1.02); EST Glomerular Filtration Rate 149 mL/min (>60); Est Glom Filt Rate - Afr Amer 180 mL/min (>60); Globulin 4.8 g/dL (2.2-4.2); Glucose 141 mg/dL (74-106); High Density Lipoprotein 35 mg/dL; Potassium 3.2 mmol/L (3.5-5.1); Sodium Level 137 mmol/L (136-145); Triglycerides 127 mg/dL; Very Low Density Lipoprotein 25 mg/dL (5-40)
[2023-01-25 09:37] LABS: Hemoglobin A1c 6.8 % (3.8-5.6)
== END | disposition home or self-care (01) ==
LOC: LAB 06:26
PROVIDERS: PCP Family Medicine; Referring Provider Family Medicine; Visit Provider Family Medicine
DX: E11.9 Type 2 diabetes mellitus without complications (principal); I10 Essential (primary) hypertension
CPT/HCPCS: 36415; 80053; 80061; 83036; 85025

== ENCOUNTER 2023-02-05 07:25 | Outpatient (RCR) | payer BC, SELFPAY | END 2023-02-07 23:59 | LOC: DC 07:25 | PROVIDERS: PCP Family Medicine; Referring Provider Family Medicine; Visit Provider Family Medicine | DX: E11.65 Type 2 diabetes mellitus with hyperglycemia (principal) | CPT/HCPCS: 97803 ==

== ENCOUNTER 2023-02-27 08:28 | Outpatient (RCR) | payer BC, SELFPAY | END 2023-03-10 23:59 | LOC: DC 08:28 | PROVIDERS: PCP Family Medicine; Referring Provider Family Medicine; Visit Provider Family Medicine | DX: E11.65 Type 2 diabetes mellitus with hyperglycemia (principal) | CPT/HCPCS: 97803 ==

== ENCOUNTER 2023-04-03 07:27 | Outpatient (RCR) | payer BC, SELFPAY | END 2023-04-10 23:59 | LOC: DC 07:27 | PROVIDERS: PCP Family Medicine; Referring Provider Family Medicine; Visit Provider Family Medicine | DX: E11.9 Type 2 diabetes mellitus without complications (principal) | CPT/HCPCS: 97803 ==

== ENCOUNTER → 2023-05-06 | Outpatient (CLI) | payer BC, SELFPAY ==
--- NOTE | 2023-05-06 09:00 | BI_ITS ---
MAMMOGRAPHY - BILATERAL DIAGNOSTIC REASON FOR EXAM: Female, remote right breast needle biopsy. old. PERTINENT HISTORY: Mother with breast cancer. TECHNIQUE: Digital bilateral breast capri (3D mammographic acquisition) in the CC and MLO projections. 2-D mediolateral oblique (MLO) and craniocaudad (CC) views of both breasts were obtained. CAD: Full Field Digital Mammography with Computer Added Detection was performed. COMPARISON: Comparison is made with prior examination dated December 22, 2020 and outside examination dated April 27, 2002. FINDINGS: Breast Composition: The breasts are heterogeneously dense, which may obscure small masses. There is been increase in number of calcifications in the cluster seen in the deep central medial aspect of the right breast. Biopsy recommended. A tissue clip marker is seen in the slightly inferior medial aspect of the right breast. Benign appearing bilateral axillary lymph nodes. No other significant abnormalities are identified. BI/DIAG MAMM W/CAD, BILAT IMPRESSION: There has been an increase in the number of calcifications within the cluster seen in deep central medial aspect of the right breast. Biopsy recommended. ASSESSMENT CATEGORY: BIRADS Category 4: Suspicious - Biopsy Should Be Considered. A letter regarding these results will be sent to the patient by the facility within 30 days. Approximately 10% of breast cancers are not detected by mammography. A normal mammogram should not delay biopsy of a clinically suspicious abnormality. Electronically Signed: Norman Castellanos MD at 10:50 EST ,
== END | disposition home or self-care (01) ==
PROVIDERS: PCP Family Medicine
DX: N63.32 Unspecified lump in axillary tail of the left breast (principal)
CPT/HCPCS: 77062; 77066; G0279

== ENCOUNTER 2023-05-21 07:14 | Outpatient (RCR) | payer BC, SELFPAY | END 2023-06-09 23:59 | LOC: DC 07:14 | PROVIDERS: PCP Family Medicine; Referring Provider Family Medicine; Visit Provider Family Medicine | DX: E66.9 Obesity, unspecified (principal) | CPT/HCPCS: 97803 ==

== ENCOUNTER → 2023-06-25 | Outpatient (CLI) | payer BC, SELFPAY ==
[2023-06-25 10:20] LABS: Estradiol 36.9 pg/mL; Follicle Stimulating Hormone 38.1 mIU/mL; Thyroid Stim Hormone (TSH) 0.95 uIU/mL (0.358-3.74)
== END | disposition home or self-care (01) ==
LOC: LAB 09:05
PROVIDERS: PCP Family Medicine; Referring Provider Nurse Practitioner Women's Health; Visit Provider Nurse Practitioner Women's Health
DX: N93.9 Abnormal uterine and vaginal bleeding, unspecified (principal); Z13.29 Encounter for screening for other suspected endocrine disorder
CPT/HCPCS: 36415; 82670; 83001; 84443

== ENCOUNTER → 2023-06-25 | Outpatient (CLI) | payer BC, SELFPAY ==
[2023-06-27 16:10] LABS: HPV APTIMA, High Risk Negative (Negative)
== END | disposition home or self-care (01) ==
PROVIDERS: PCP Family Medicine; Visit Provider Nurse Practitioner Women's Health
DX: Z12.4 Encounter for screening for malignant neoplasm of cervix (principal)
CPT/HCPCS: 87624; 88175; G0145

== ENCOUNTER 2023-07-02 07:27 | Outpatient (RCR) | payer BC, SELFPAY | END 2023-07-09 23:59 | LOC: DC 07:27 | PROVIDERS: PCP Family Medicine; Referring Provider Family Medicine; Visit Provider Family Medicine | DX: E11.9 Type 2 diabetes mellitus without complications (principal) | CPT/HCPCS: 97803 ==

== ENCOUNTER → 2023-08-02 | Outpatient (CLI) | payer BC, SELFPAY ==
--- NOTE | 2023-08-02 12:45 | US_ITS ---
STUDY: ULTRASOUND OF THE FEMALE PELVIS - COMPLETE REASON FOR EXAM: Female, 57 years old. Abnormal bleeding LMP: TECHNIQUE: Transabdominal TECHNICAL QUALITY: Adequate. COMPARISON: None. FINDINGS: The uterus is anteverted and is in a midline position. The uterus measures 21.3 x 16.3 x 10.4 cm. Normal uterine cervix. The endometrium measures 4.8 mm in thickness, and is hyperechoic. There is no demonstrated endometrial mass. There is a uterine mass, likely fibroid measuring 13 cm. It contains calcifications and demonstrates color Doppler flow. I.U.D. - The patient does not have an I.U.D. Neither ovary visualized. There is no fluid in the cul-de-sac. The bladder is incompletely distended US/Pelvic (Non ) IMPRESSION: Enlarged likely fibroid uterus measuring 21.3 cm in greatest dimension, the fibroid or uterine mass measures 13 cm. Neither ovary visualized, no suspicious cystic mass or free fluid Electronically Signed: Morgan Smalls MD at 15:38 EDT ,
== END | disposition home or self-care (01) ==
PROVIDERS: PCP Family Medicine; Referring Provider Nurse Practitioner Women's Health; Visit Provider Nurse Practitioner Women's Health
DX: N93.9 Abnormal uterine and vaginal bleeding, unspecified (principal)
CPT/HCPCS: 76856

== ENCOUNTER → 2023-08-06 | Outpatient (CLI) | payer BC, SELFPAY ==
[2023-08-06 08:18] LABS: Absolute Lymphocyte Count 3.17 X10^3/uL (0.83-4.51); Absolute Neutrophil Count 2.9 X10^3/uL (2.0-7.7); Basophil# 0.05 X10^3/uL; Basophil% 0.7 % (0-1); Eosinophil# 0.41 X10^3/uL; Eosinophils% 5.7 % (0-5); Hematocrit 42.1 % (37-47); Hemoglobin 13.3 g/dL (12.0-15.0); Lymphocyte # 3.17 X10^3/ul (0.83-4.51); Mean Corp Hgb Conc 31.6 g/dL (32-36); Mean Corpuscular Hgb 28.3 pg (27.0-32.0); Mean Corpuscular Volume 89.6 fL (81-99); Mean Platelet Vol. 9.7 fl (6.2-12.0); Monocyte# 0.66 X10^3/uL; Monocyte% 9.2 % (0-10); NRBC Flagged by Analyzer 0 % (0-5); Neutrophil # 2.89 X10^3/uL (2.7-7.7); Neutrophil % 40.1 % (47-70); Platelet Count 338 K/mm3 (150-450); RBC Distribution Width CV 12.7 % (11.6-14.6); RBC Distribution Width SD 41.9 fl (35.1-43.9); White Blood Count 7.2 K/mm3 (4.4-11.0)
[2023-08-06 09:11] LABS: ALB/GLOB Ratio 0.7 RATIO (0.9-2.4); AST(SGOT) 37 U/L (15-37); Alanine Aminotransfer ALT/SGPT 50 U/L (13-56); Albumin, Serum 3.3 g/dL (3.2-5.0); Alkaline Phosphatase 70 U/L (45-117); Anion Gap 6 (5-15); BUN 12 mg/dL (7-18); Calcium,Total 9.8 mg/dL (8.5-10.1); Chloride 102 mmol/L (98-107); Cholesterol 112 mg/dL (200); Creatinine, Serum 0.52 mg/dL (0.55-1.02); EST Glomerular Filtration Rate 129 mL/min (>60); Est Glom Filt Rate - Afr Amer 156 mL/min (>60); Globulin 4.6 g/dL (2.2-4.2); Glucose 130 mg/dL (74-106); High Density Lipoprotein 30 mg/dL; Potassium 3.2 mmol/L (3.5-5.1); Protein, Total 7.9 g/dL (6.4-8.2); Sodium Level 136 mmol/L (136-145); Triglycerides 142 mg/dL; Very Low Density Lipoprotein 28 mg/dL (5-40)
== END | disposition home or self-care (01) ==
LOC: LAB 07:12
PROVIDERS: PCP Family Medicine; Referring Provider Family Medicine; Visit Provider Family Medicine
DX: E11.9 Type 2 diabetes mellitus without complications (principal); I10 Essential (primary) hypertension
CPT/HCPCS: 36415; 80053; 80061; 83036; 85025

== ENCOUNTER 2023-08-28 07:47 | Outpatient (RCR) | payer BC, SELFPAY | END 2023-09-08 23:59 | LOC: NS 07:47 | PROVIDERS: PCP Family Medicine; Referring Provider Family Medicine; Visit Provider Family Medicine | DX: E11.9 Type 2 diabetes mellitus without complications (principal); Z71.3 Dietary counseling and surveillance | CPT/HCPCS: 97803 ==

== ENCOUNTER 2023-10-01 11:11 | Day surgery (SDC) | payer BC, SELFPAY ==
--- NOTE | 2023-09-27 06:33 | EKG12_ITS ---
Test Reason : PREOP Blood Pressure : / mmHG Vent. Rate : 081 BPM Atrial Rate : 081 BPM P-R Int : 186 ms QRS Dur : 086 ms QT Int : 370 ms P-R-T Axes : 072 043 042 degrees QTc Int : 429 ms Normal sinus rhythm Normal ECG Confirmed by SHYANN SORENSON, SANDRA ([id number]), newspaper copy editor TAYLOR MAN ([id number]) on 09/30/2023 11:12:05 AM Referred By: Ana Rosa Tolliver Confirmed By:SANDRA BOOTHE MD
[2023-09-27 06:49] LABS: Hematocrit 39.3 % (37-47); Mean Corp Hgb Conc 33.1 g/dL (32-36); Mean Corpuscular Hgb 29.2 pg (27.0-32.0); Mean Corpuscular Volume 88.3 fL (81-99); Mean Platelet Vol. 9.3 fl (6.2-12.0); Platelet Count 333 K/mm3 (150-450); RBC Distribution Width CV 12.7 % (11.6-14.6); RBC Distribution Width SD 41.1 fl (35.1-43.9); Red Blood Count 4.45 M/mm3 (4.2-5.4); White Blood Count 7.2 K/mm3 (4.4-11.0)
[2023-09-27 07:16] LABS: ALB/GLOB Ratio 0.7 RATIO (0.9-2.4); AST(SGOT) 27 U/L (15-37); Alanine Aminotransfer ALT/SGPT 32 U/L (13-56); Albumin, Serum 3.2 g/dL (3.2-5.0); Alkaline Phosphatase 66 U/L (45-117); Anion Gap 5 (5-15); BUN 16 mg/dL (7-18); BUN/Creat Ratio 31.6 RATIO (10-20); Calcium,Total 9.5 mg/dL (8.5-10.1); Chloride 101 mmol/L (98-107); Creatinine, Serum 0.51 mg/dL (0.55-1.02); EST Glomerular Filtration Rate 133 mL/min (>60); Est Glom Filt Rate - Afr Amer 161 mL/min (>60); Globulin 4.6 g/dL (2.2-4.2); Glucose 148 mg/dL (74-106); Potassium 3.3 mmol/L (3.5-5.1); Protein, Total 7.8 g/dL (6.4-8.2); Sodium Level 137 mmol/L (136-145)
[2023-10-01] VITALS (10 sets, daily range): BP systolic 119–143; BP diastolic 75–86; PULSE 89–104; RESP 16; TEMP 35.9–36.5; O2SAT 92–98; BMI 40.8
[2023-10-01 12:13] LABS: Bedside Glucose 138 mg/dL (74-106)
[2023-10-01] MEDS: Lactated Ringers 1,000 ML 15 ML IV (12:18)
--- NOTE | 2023-10-01 12:39 | PCM.HP.BLA ---
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 Is patient in pain?: No Allergies amoxicillin Adverse Reaction (Verified 09/04/23 10:23) Nausea Medications ?Medication ?Instructions ?Recorded ?Confirmed ?Type indapamide 2.5 mg tablet 2.5 mg PO DAILY 02/29/20 09/04/23 History albuterol sulfate 1.25 mg/3 mL 1.25 mg inhalation Q4H 03/06/22 09/04/23 History solution for nebulization albuterol sulfate 90 mcg/actuation 2 inh inhalation Q6H PRN WHEEZING 03/06/22 09/04/23 History breath activated powder inhaler diazepam 5 mg tablet 5 mg PO QHS PRN Anxiety 03/06/22 09/04/23 History potassium chloride 20 mEq oral 20 meq PO DAILY 03/06/22 09/04/23 History packet (Klor-Con) glimepiride 2 mg tablet 2 mg PO DAILY 06/25/23 09/04/23 History Post menopausal: No Patient : No : No PFSH Medical History Microcalcification of right breast on mammogram Partial hamstring tear Short heel cord Hypertension CAP (community acquired pneumonia) Sepsis Hepatic steatosis Decubitus ulcer of right buttock, stage 2 Cerebral palsy, hemiplegic Surgical History S/P rotator cuff repair H/O thumb surgery Previous back surgery Status post left hip replacement Status post hip surgery Family History Mother Breast cancer Social History household members: spouse current occupational status: disabled Smoking Status: Never smoker alcohol intake: never substance use type: does not use seatbelt use: always do you feel safe at home: Yes additional social history: - Rayna HPI Discuss enlarged uterus/fibroid Details: TAYLOR VIEIRA is a 57 year old who presents for discussion about large fibroid uterus and postmenopausal bleeding. She has CP and severe scoliosis and has never been sexually active or undergone a pelvic exam prior to her exam with Luisana Hasting recently. Luisana was unable to do a full exam due to the patient discomfort and possibly due to the large size of the uterus. Ultrasound is as follows: FINDINGS: The uterus is anteverted and is in a midline position. The uterus measures 21.3 x 16.3 x 10.4 cm. Normal uterine cervix. The endometrium measures 4.8 mm in thickness, and is hyperechoic. There is no demonstrated endometrial mass. There is a uterine mass, likely fibroid measuring 13 cm. It contains calcifications and demonstrates color Doppler flow. I.U.D. - The patient does not have an I.U.D. Neither ovary visualized. There is no fluid in the cul-de-sac. The bladder is incompletely distended US/Pelvic (Non ) IMPRESSION: Enlarged likely fibroid uterus measuring 21.3 cm in greatest dimension, the fibroid or uterine mass measures 13 cm. History 0 Elective abortions Hx Para Spontaneous abortions Hx # Term Pregnancies Ectopic pregnancies Hx # Pregnancies Multiple births # of living children ROS Const ROS Unobtainable: All systems reviewed & are unremarkable except as noted in H Resp Resp: Reports system reviewed and no additional complaints, except as documented; Denies cough GI GI: Reports as per HPI Psych Psych: Reports system reviewed and no additional complaints, except as documented Exam Const General: cooperative, healthy appearing, comfortable and no acute distress Resp Effort & Inspection: normal respiratory effort GI Other: large abdominal mass palpated well above the umbilicus and likely due to the uterine fibroid. The mass is firm and non-tender and pushed to the patients right side of her abdomen. Skin General: no rashes or lesions noted Psych Appearance: grossly normal Speech and Movement: speech and movement normal Coding Level of Care Code Off vis,est,level 5 Diagnoses Fibroid uterus D25.9 Postmenopausal bleeding N95.0 Assessment and Plan Assessment and Plan (1) Fibroid uterus: Status: Acute (2) Postmenopausal bleeding: Status: Acute Plan: plan to start with hysteroscopy D&C and if endometrium is benign, proceed with abdominal hysterectomy.
--- NOTE | 2023-10-01 13:58 | PCM.PRE.AN2 ---
ASA Classification* ASA Classification ASA Classification: 3 Assessment & Plan Anesthesia* Anesthesia Assessment Anesthesia Assessment: Discussed sedation and/or anesthesia options, risks, benefits, and alternatives with patient/parents/legal guardian/POA. Questions invited. The patient/parents/legal guardian/POA seems to understand and agrees to proceed with anesthesia plan. Reviewed the physical assessment, medical history, allergy history and patient home medications list prior to surgery/procedure/anesthetic and documented any changes. Performed airway and anesthesia risk assessments. Anesthesia Type Anesthesia Type: MAC (no sux due to muscle weekness) Anesthesia Focused Assessment* Temperature: 97.7 F Pulse Rate: 89 Blood Pressure: 143/80 Respiratory Rate: 16 Pulse Ox: 98 Airway Assessment Mouth opens: >3 cm Mallampati Score: II Focused Labs Anesthesia Preop lab: CBC WBC 7.2 K/mm3 (4.4-11.0) 09/27/23 06:31 RBC 4.45 M/mm3 (4.2-5.4) 09/27/23 06:31 Hgb 13.0 g/dL (12.0-15.0) 09/27/23 06:31 Hct 39.3 % (37-47) 09/27/23 06:31 Plt Count 333 K/mm3 (150-450) 09/27/23 06:31 CHEMISTRY Potassium 3.3 mmol/L (3.5-5.1) L 09/27/23 06:31 Sodium 137 mmol/L (136-145) 09/27/23 06:31 Magnesium 2.0 mg/dL (1.6-2.6) 06/15/21 19:00 BUN 16 mg/dL (7-18) 09/27/23 06:31 Creatinine 0.51 mg/dL (0.55-1.02) L 09/27/23 06:31 Glucose 148 mg/dL (74-106) H 09/27/23 06:31 POC Glucose 138 mg/dL (74-106) H 10/01/23 11:55 TSH 0.95 uIU/mL (0.358-3.74) 06/25/23 09:07 COAG PT 12.5 SECONDS (11.7-14.9) 02/04/15 09:25 Urine Test Negative Negative 08/06/14 05:40 Pre-Assessment Diagnosis/Proposed Procedure Planned Operative Procedure(s): D&C Anesthesia History Anesthesia History - real estate consultant: Anesthesia History - real estate consultant Hx Hospitalization No 09/26/23 08:44 Any Problems With Anesthesia No 09/26/23 08:44 Cholinesterase deficiency No 09/26/23 08:44 You/Your Family Experience No 09/26/23 08:44 fever (hyperthermia) with Relationship Recent Exposure to Contagious No 10/01/23 11:48 Disease Does patient have nerve No 09/26/23 08:44 stimulator Patient instructed to have device shut off --Does patient have Pacemaker No 10/01/23 11:48 or ICD? When Was Last Pacemaker Check QUESTION #4 FULL TEXT: You/Your Family Experience fever (hyperthermia) with Anesthesia Last Oral Intake Last Oral intake: Last Oral Intake NPO since 10:30 10/01/23 11:48 Meds taken in AM with sips of Yes 10/01/23 11:48 water? Meds patient instructed to take am of surgery PONV PONV - real estate consultant: PONV - real estate consultant Female Yes 09/26/23 08:44 HX of Motion Sickness No 09/26/23 08:44 HX of N/V After Surgery No 09/26/23 08:44 Non-Smoker Yes 09/26/23 08:44 Duration of Surgery greater No 09/26/23 08:44 than 60 minutes Number of Risk Factors 2 09/26/23 08:44 PONV Score Moderate Risk 09/26/23 08:44 Height & Weight Height & Weight: Anesthesia: Height & Weight Height 4 ft 11 in 10/01/23 11:48 Weight: 91.626 kg 10/01/23 11:48 Body Mass Index (BMI) 40.8 10/01/23 11:48 Respiratory Assessment Respiratory Assessment - real estate consultant: Respiratory Tract Infection Hx - real estate consultant Hx Respiratory Tract Infection Yes: COVID 09/15/23. NO 09/26/23 08:44 SYMPTOMS AT THIS TIME STOP Sleep Apnea STOP Sleep Apnea - real estate consultant: STOP Sleep Apnea - real estate consultant Hx Hypertension Yes: CONTROLLED WITH MED 09/26/23 08:44 Hx Sleep Apnea No 09/26/23 08:44 CPAP No 11/30/22 09:04 BIPAP No 11/30/22 09:04 Do you snore loudly (louder No 09/26/23 08:44 than talking or can be heard Do you often feel tired/ No 09/26/23 08:44 fatigued/ sleepy during daytime? Has anyone observed you stop No 09/26/23 08:44 breathing during sleep? STOP Results Negative 09/26/23 08:44 QUESTION #5 FULL TEXT : Do you snore loudly (louder than talking or can be heard through closed doors)? Tobacco Use History Tobacco Use History - real estate consultant: Tobacco Use History - real estate consultant Tobacco Use Smoking Status Never smoker 09/26/23 08:44 Hx Tobacco Use No 09/26/23 08:44 Years Smoking Packs Smoked per Day Smoking Cessation Date was within the last 15 years Hx Smoking Cessation Date Hx Smoking Cessation Counseling Hematologic Medial History Hematologic Hx - real estate consultant: Hematologic Medical Hx - literary writer Hx of Blood Transfusion Yes 09/26/23 08:44 Hx of Transfusion in last 3 No 09/26/23 08:44 Months Date of Last Transfusion (if within last 3 months) Ever experience any problems No 09/26/23 08:44 with transfusion(s)? Specify any problems Hx of Preganancy in last 3 No 09/26/23 08:44 Months Nurse Filling Out Transfusion DSCHRIBER 09/26/23 08:44 & Questions: Date: 09/26/23 09/26/23 08:44 Time: 08:47 09/26/23 08:44 Patient unable to answer at this time (ie. confused, unrespo /Reproduction History /Reproductive History - real estate consultant: /Reproductive Hx- real estate consultant Hx Now No 09/26/23 08:44 Gestational Age (in weeks): EDC: Hx Hx Para Hx Section SAB No 09/26/23 08:44 Active Medications Active Medications: Current Medications Generic Name Dose Route Start Last Admin Trade Name Freq PRN Reason Stop Dose Admin Lactated Ringer's 1,000 mls @ 15 mls/hr 10/01/23 11:30 10/01/23 12:18 IV 15 mls/hr .Q48H YULIANA Administration PFSH Medical History (Updated 09/26/23 @ 09:01 by Luzmaria Hall) Wears glasses Post-menopausal Anxiety Alcohol use Diabetes Arthritis Uses wheelchair Bladder disease Fatty liver Dietary restriction Non-smoker Asthma Leg cramps History of edema History of stress test Stroke/cerebrovascular accident Hx of dislocation of hip Microcalcification of right breast on mammogram Partial hamstring tear Hypertension CAP (community acquired pneumonia) Sepsis Hepatic steatosis Decubitus ulcer of right buttock, stage 2 Cerebral palsy, hemiplegic Home Medications ?Medication ?Instructions ?Recorded ?Last Taken ?Type indapamide 2.5 mg tablet 2.5 mg PO DAILY 02/29/20 Unknown History albuterol sulfate 1.25 mg/3 mL 1.25 mg inhalation Q4H PRN 03/06/22 Unknown History solution for nebulization shortness of breath or wheezing albuterol sulfate 90 mcg/actuation 2 inh inhalation Q6H PRN WHEEZING 03/06/22 Unknown History breath activated powder inhaler diazepam 5 mg tablet 5 mg PO QHS PRN Anxiety 03/06/22 10/01/23 10:30 History potassium chloride 20 mEq oral 20 meq PO DAILY 03/06/22 Unknown History packet (Klor-Con) glimepiride 2 mg tablet 2 mg PO BID 06/25/23 Unknown History ondansetron HCl 4 mg tablet 4 mg PO .Q4-6H PRN PRN nausea and 09/26/23 Unknown History vomiting Allergy/AdvReac Type Severity Reaction Status Date / Time amoxicillin AdvReac Nausea Verified 10/01/23 11:46 Family History Mother Breast cancer Surgical History (Updated 09/26/23 @ 09:01 by Luzmaria Hall) Hx of colonoscopy Hx of surgical procedure History of Achilles tendon repair History of back surgery S/P rotator cuff repair H/O thumb surgery Status post left hip replacement Social History household members: spouse current occupational status: disabled Smoking Status: Never smoker alcohol intake: never substance use type: does not use seatbelt use: always do you feel safe at home: Yes additional social history: - Rayna Review of Systems (Anesthesia) ROS Narrative System reviewed and no additional complaints, except as documented.
--- NOTE | 2023-10-01 14:30 | PCM.DC ---
Discharge Instructions Diet Discharge Diet: No restrictions Activity Discharge Activity: Return to Normal Activity, May Shower and May Take a Tub Bath (after 1 week) May resume sexual activity in: 1-2 weeks Weight Bearing Status: Weight bearing as tolerated Lifting Restrictions: none Dressing / Incision Call your doctor if you observe: Fever of 101 or Higher, Using more than 1 pad per hour, Shortness of breath and Uncontrolled pain Follow Up Care Please Follow Up With: Ana Rosa Tolliver DO When: Call [phone] to schedule appointment. Test Results: Test results from this visit will be discussed in further detail at your follow-up appointment, if applicable. Discharge Plan Admission Attending Provider: Ana Rosa Tolliver Primary Care Provider: Ion Williamson Instructions Print Language: Belarusian Discharge Orders/Prescriptions Prescriptions: No Action albuterol sulfate 90 mcg/actuation aerosol powdr breath activated 2 inh inhalation Q6H PRN (Reason: WHEEZING) albuterol sulfate 1.25 mg/3 mL solution for nebulization 1.25 mg inhalation Q4H PRN (Reason: shortness of breath or wheezing) diazepam 5 mg tablet 5 mg PO QHS PRN (Reason: Anxiety) potassium chloride [Klor-Con] 20 mEq packet 20 meq PO DAILY glimepiride 2 mg tablet 2 mg PO BID indapamide 2.5 MG tablet 2.5 mg PO DAILY Patient Comments: TAKE 1 TABLET BY MOUTH ONCE DAILY ondansetron HCl 4 mg tablet 4 mg PO .Q4-6H PRN PRN (Reason: nausea and vomiting) Referrals / Follow Up: Ion Williamson DO [Primary Care Provider] - Disposition Disposition (needs filled in before D/C Order can be placed): Home, Self Care
--- NOTE | 2023-10-01 15:25 | PCM.OPRPT ---
Problems Associated Problem List Diagnoses (1) Postmenopausal bleeding: (2) Fibroid uterus: (3) Abnormal uterine bleeding (AUB): Report of Operation Date of Procedure: 10/01/23 Pre-Operative Diagnosis: postmenopausal bleeding, large fibroid uterus Post-Operative Diagnosis: postmenopausal bleeding, large fibroid uterus Surgery/Procedure Performed:: pelvic exam under anesthesia Description of Surgical Findings:: long thin vagina, unable to visualize cervix Surgeon: Ana Rosa Tolliver service order dispatcher: None Type of Anesthesia: MAC Anesthesiologist: Bishop Keller Specimen's removed: none Estimated Blood Loss (mL): 5cc Description of Procedure: The patient was brought to the operating room. MAC anesthesia was administered and found to be adequate. The patient's legs were placed in stirrups and the patient was prepped and draped in the usual sterile fashion.The procedure was started with the smallest bivalve speculum available then gradually moved up in size until we utilized the largest size available. Still the cervix was not visible. The vaginal tissue was starting to appear bruised and started bleeding from small scrapes in the tissue from all of the speculums. As a last effort, side wall retractors were used and still the cervix was unable to be reached. The abdomen, full of the 21 cm uterus was shifted and fundal pressure was applied. Two fingers were placed in the vagina and I was still unable to reach the cervix. The decision was made to abort the procedure and plan for hysterectomy at a later date. Complications none Admit VTE Documentation VTE Present on Admission: Yes VTE Mechan Device Prophylaxis: SCD's VTE Pharm Prophylaxis ordered?: No
--- NOTE | 2023-10-02 07:14 | PCM.POSTANE2 ---
Anesthesia Postop Eval I Sum Anesthesia Postop Eval I Summary Anesthesia Postop Eval I Summary: Anesthesia Postop Eval I: Assessment Summary Airway patent Spontaneous unlabored respirations Mental status nausea Vomiting Anesthesia Postop Eval I: Fluid Summary Crystalloid volume administer (ml) Colloids volume administered ( ml) Blood Product volume administered (ml) Total IV fluid infused Anesthesia Postop Eval I: Summary Notes Anesthesia Complication Anesthesia Complication Comment: Post-operative progress note Anesthesia: Postop Eval II Evaluation Mental status: Awake and Calm Pain Level: 0 nausea: No Vomiting: No Complications Anesthesia Complication: No
--- NOTE | 2023-10-02 08:04 | PCM.POST.ANE ---
Anesthesia: Postop Eval I Current Vital Signs Temperature: 97 F Pulse Rate: 82 Blood Pressure: 122/60 Respiratory Rate: 16 Pulse Ox: 95 Oxygen Delivery Method: Room Air Assessment Airway patent: Yes Spontaneous unlabored respirations: Yes Mental status: Awake nausea: No Vomiting: No Anesthesia Complication: No Fluid Hydration Crystalloid volume administer (ml): 300 Total IV fluid infused: 300 Progress Note Anesthesia document: Postop Eval 1 completed: Yes
[2023-10-02 08:05] VITALS: BP 122/60; PULSE 82; RESP 16; TEMP 36.1; O2SAT 95
== END 2023-10-01 17:30 | disposition home or self-care (01) ==
LOC: SDC 11:12 → AC 11:12
PROVIDERS: PCP Family Medicine; Referring Provider Obstetrics & Gynecology; Visit Provider Obstetrics & Gynecology
PROC: 0UDB8ZZ Extraction of Endometrium, Via Natural or Artificial Opening Endoscopic (ICD-10-PCS; CPT 58558; principal; 2023-10-01 12:35)
DX: N95.0 Postmenopausal bleeding (principal); D25.9 Leiomyoma of uterus, unspecified; N93.9 Abnormal uterine and vaginal bleeding, unspecified; M41.9 Scoliosis, unspecified; I10 Essential (primary) hypertension; J45.909 Unspecified asthma, uncomplicated; Z79.51 Long term (current) use of inhaled steroids; Z79.84 Long term (current) use of oral hypoglycemic drugs; Z86.16 Personal history of COVID-19
CPT/HCPCS: 57410; 00940; 36415; 80053; 82962; 85027; 86850; 86900; 86901; 93005; J7120; J2405

== ENCOUNTER 2023-11-14 07:22 | Outpatient (RCR) | payer BC, SELFPAY | END 2023-12-09 23:59 | LOC: NS 07:22 | PROVIDERS: PCP Family Medicine; Referring Provider Family Medicine; Visit Provider Family Medicine | DX: E11.9 Type 2 diabetes mellitus without complications (principal); Z71.3 Dietary counseling and surveillance | CPT/HCPCS: 97803 ==

== ENCOUNTER 2024-01-02 07:21 | Outpatient (RCR) | payer BC, SELFPAY | END 2024-01-09 23:59 | LOC: NS 07:21 | PROVIDERS: PCP Family Medicine; Referring Provider Family Medicine; Visit Provider Family Medicine | DX: E11.9 Type 2 diabetes mellitus without complications (principal); Z71.3 Dietary counseling and surveillance | CPT/HCPCS: 97803 ==

== ENCOUNTER → 2024-02-03 | Outpatient (CLI) | payer BC, SELFPAY ==
[2024-02-03 08:56] LABS: Absolute Lymphocyte Count 3.02 X10^3/uL (0.83-4.51); Absolute Neutrophil Count 3.1 X10^3/uL (2.0-7.7); Basophil# 0.05 X10^3/uL; Basophil% 0.7 % (0-1); Eosinophil# 0.27 X10^3/uL; Eosinophils% 3.8 % (0-5); Hematocrit 39.9 % (37-47); Hemoglobin 12.9 g/dL (12.0-15.0); Lymphocyte # 3.02 X10^3/ul (0.83-4.51); Lymphocyte % 42.7 % (19-41); Mean Corp Hgb Conc 32.3 g/dL (32-36); Mean Corpuscular Volume 86.7 fL (81-99); Mean Platelet Vol. 10.3 fl (6.2-12.0); Monocyte# 0.59 X10^3/uL; Monocyte% 8.3 % (0-10); NRBC Flagged by Analyzer 0 % (0-5); Neutrophil # 3.13 X10^3/uL (2.7-7.7); Neutrophil % 44.2 % (47-70); Platelet Count 388 K/mm3 (150-450); RBC Distribution Width CV 12.7 % (11.6-14.6); RBC Distribution Width SD 39.8 fl (35.1-43.9); White Blood Count 7.1 K/mm3 (4.4-11.0)
[2024-02-03 09:24] LABS: Microalbumin:Creatinine Ratio 11.6 mg/g CRE (<30 mg/g CRE)
[2024-02-03 09:51] LABS: ALB/GLOB Ratio 0.7 RATIO (0.9-2.4); AST(SGOT) 33 U/L (15-37); Alanine Aminotransfer ALT/SGPT 53 U/L (13-56); Albumin, Serum 3.3 g/dL (3.2-5.0); Alkaline Phosphatase 87 U/L (45-117); Anion Gap 8 (5-15); BUN 14 mg/dL (7-18); BUN/Creat Ratio 34.7 RATIO (10-20); Calcium,Total 10.3 mg/dL (8.5-10.1); Chloride 103 mmol/L (98-107); Cholesterol 124 mg/dL (200); EST Glomerular Filtration Rate 173 mL/min (>60); Est Glom Filt Rate - Afr Amer 209 mL/min (>60); Globulin 4.9 g/dL (2.2-4.2); Glucose 107 mg/dL (74-106); High Density Lipoprotein 37 mg/dL; Potassium 3.2 mmol/L (3.5-5.1); Protein, Total 8.2 g/dL (6.4-8.2); Sodium Level 137 mmol/L (136-145); Triglycerides 123 mg/dL; Very Low Density Lipoprotein 25 mg/dL (5-40)
[2024-02-03 11:26] LABS: Hemoglobin A1c 8.2 % (3.8-5.6)
== END | disposition home or self-care (01) ==
LOC: LAB 06:30
PROVIDERS: PCP Family Medicine; Referring Provider Family Medicine; Visit Provider Family Medicine
DX: E11.9 Type 2 diabetes mellitus without complications (principal); I10 Essential (primary) hypertension
CPT/HCPCS: 36415; 80053; 80061; 82043; 82570; 83036; 85025

== ENCOUNTER 2024-03-09 08:00 | Outpatient (RCR) | payer BC, SELFPAY | END 2024-03-10 23:59 | LOC: NS 08:00 | PROVIDERS: PCP Family Medicine; Referring Provider Family Medicine; Visit Provider Family Medicine | DX: E11.9 Type 2 diabetes mellitus without complications (principal); Z71.3 Dietary counseling and surveillance | CPT/HCPCS: 97803 ==

== ENCOUNTER → 2024-03-09 | Outpatient (CLI) | payer BC, SELFPAY ==
[2024-03-09 07:03] LABS: Anion Gap 5 (5-15); BUN 19 mg/dL (7-18); BUN/Creat Ratio 45.1 RATIO (10-20); Chloride 104 mmol/L (98-107); Creatinine, Serum 0.42 mg/dL (0.55-1.02); EST Glomerular Filtration Rate 164 mL/min (>60); Est Glom Filt Rate - Afr Amer 199 mL/min (>60); Glucose 124 mg/dL (74-106); Potassium 3.6 mmol/L (3.5-5.1); Sodium Level 138 mmol/L (136-145)
== END | disposition home or self-care (01) ==
PROVIDERS: PCP Family Medicine; Referring Provider Family Medicine; Visit Provider Family Medicine
DX: E87.6 Hypokalemia (principal)
CPT/HCPCS: 36415; 80048

== ENCOUNTER 2024-04-14 06:52 | Outpatient (RCR) | payer BC, SELFPAY | END 2024-05-08 23:59 | LOC: NS 06:52 | PROVIDERS: PCP Family Medicine; Referring Provider Family Medicine; Visit Provider Family Medicine | DX: Z71.3 Dietary counseling and surveillance (principal); E11.9 Type 2 diabetes mellitus without complications | CPT/HCPCS: 97803 ==

== ENCOUNTER 2024-06-04 06:56 | Outpatient (RCR) | payer BC, SELFPAY | END 2024-06-08 23:59 | LOC: NS 06:56 | PROVIDERS: PCP Family Medicine; Referring Provider Family Medicine; Visit Provider Family Medicine | DX: E11.9 Type 2 diabetes mellitus without complications (principal); Z71.3 Dietary counseling and surveillance | CPT/HCPCS: 97803 ==

== ENCOUNTER → 2024-06-10 | Outpatient (CLI) | payer BC, SELFPAY ==
[2024-06-10 07:23] LABS: Hemoglobin A1c 6.2 % (<=5.6)
[2024-06-10 07:30] LABS: AST(SGOT) 30 U/L (<=31); Alanine Aminotransfer ALT/SGPT 30 U/L (<=34); Albumin, Serum 3.9 g/dL (3.5-5.0); Alkaline Phosphatase 82 U/L (35-104); Anion Gap 12 (5-15); BUN 10 mg/dL (4-19); BUN/Creat Ratio 26.3 RATIO (10-20); Calcium,Total 10.1 mg/dL (7.6-11.0); Carbon Dioxide 26.6 mmol/L (21.0-32.0); Chloride 100 mmol/L (98-108); Cholesterol 130 mg/dL (<=200); Creatinine, Serum 0.39 mg/dL (0.70-1.20); EST Glomerular Filtration Rate 115 (>60); Globulin 3.8 g/dL (2.2-4.2); Glucose 106 mg/dL (70-99); High Density Lipoprotein 40 mg/dL; Low Density Lipoprotein Calc. 64 mg/dL; Potassium 3.2 mmol/L (3.3-5.1); Protein, Total 7.7 g/dL (5.9-8.4); Sodium Level 138 mmol/L (133-145); Total Bilirubin 0.62 mg/dL (0.00-1.30); Triglycerides 131 mg/dL; Very Low Density Lipoprotein 26 mg/dL (5-40); cholesterol:hdl ratio screen 3.25
== END | disposition home or self-care (01) ==
LOC: LAB 06:03
PROVIDERS: PCP Family Medicine
DX: E11.65 Type 2 diabetes mellitus with hyperglycemia (principal); Z79.4 Long term (current) use of insulin; I10 Essential (primary) hypertension; E66.9 Obesity, unspecified
CPT/HCPCS: 36415; 80053; 80061; 83036; 84439; 84443

== ENCOUNTER → 2024-06-11 | Outpatient (CLI) | payer BC, SELFPAY ==
[2024-06-11 07:16] LABS: Microalbumin,Random Urine < 12.0 mg/L (NO RANGE EST.); Microalbumin:Creatinine Ratio UNABLE TO CALCULATE mg/g CRE
== END | disposition home or self-care (01) ==
LOC: LABSPEC 06:21
PROVIDERS: PCP Family Medicine
DX: E11.65 Type 2 diabetes mellitus with hyperglycemia (principal); Z79.4 Long term (current) use of insulin; I10 Essential (primary) hypertension; E66.9 Obesity, unspecified
CPT/HCPCS: 82043; 82570

== ENCOUNTER 2024-07-23 06:59 | Outpatient (RCR) | payer BC, SELFPAY | END 2024-08-08 23:59 | LOC: NS 06:59 | PROVIDERS: PCP Family Medicine; Referring Provider Family Medicine; Visit Provider Family Medicine | DX: E11.9 Type 2 diabetes mellitus without complications (principal); Z71.3 Dietary counseling and surveillance | CPT/HCPCS: 97803 ==

== ENCOUNTER 2024-09-24 07:14 | Outpatient (RCR) | payer BC, SELFPAY | END 2024-10-08 23:59 | LOC: NS 07:14 | PROVIDERS: PCP Family Medicine; Referring Provider Family Medicine; Visit Provider Family Medicine | DX: E11.9 Type 2 diabetes mellitus without complications (principal); Z71.3 Dietary counseling and surveillance | CPT/HCPCS: 97803 ==

== ENCOUNTER 2024-11-03 07:09 | Outpatient (RCR) | payer BC, SELFPAY | END 2024-11-08 23:59 | LOC: NS 07:09 | PROVIDERS: PCP Family Medicine; Referring Provider Family Medicine; Visit Provider Family Medicine | DX: E11.9 Type 2 diabetes mellitus without complications (principal); Z71.3 Dietary counseling and surveillance | CPT/HCPCS: 97803 ==

== ENCOUNTER → 2024-12-14 | Outpatient (CLI) | payer BC, SELFPAY ==
--- OUTSIDE RECORDS SUMMARY | 2024-12-14 06:27 | XMS RPT_ITS | CCD ---
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 Ion Williamson Primary Care Provider Dr. Ion Williamson Referring Provider SOPHIA Maya Attending Provider Ion Williamson DO Primary Care Provide r Jazmin Zazueta MD Unavailable Dr. Ion Williamson Primary Care Provider Dr. Ion Williamson Referring Provider [phone] VIKTOR Busch Attending Provider VIKTOR Mariano Attending Provider Dr. Ion Williamson Primary Care Provider Dr. Ion Williamson Referring Provider Ion Williamson DO Primary Care Provider Jazmin Zazueta MD Unavailable [phone] Ion Williamson Primary Care Provider Dr. Ion Williamson Referring Provider VIKTOR Mariano Attending Provider Jazmin Zazueta MD Unavailable [phone] Ion Williamson DO Primary Care Provider Dr. Ion Williamson Primary Care Provider Dr. Ion Williamson Referring Provider Shawna KETTLE HAND, SOPHIA Lieberman Attending Provider Ion Williamson DO Primary Care Provider ION WILLIAMSON Primary Care Unavailable ION WILLIAMSON Referring Unavailable JAZMIN ZAZUETA Attending Unavailable ION WILLIAMSON Primary Care Unavailable TAMION GONZALEZ Referring Unavailable JAZMIN ZAZUETA Attending Unavailable ION WILLIAMSON Primary Care Unavailable ION WILLIAMSON Primary Care Unavailable DAVIDSON, VICKY Referring Unavailable DAVIDSON, VICKY Referring Unavailable ION WILLIAMSON Primary Care Unavailable ION WILLIAMSON Primary Care Unavailable Robert Bruce MD Unavailable Ion Williamson DO Primary Care Provider Raf Cannon CNP, Marisol Unavailable Dr. Ion Williamson DO Primary Care Provider Dr. Ion Williamson DO Attending Provider Dr. Ion Williamson DO Referring Provider SAUL ARMIJO Attending Provider SAUL ARMIJO Referring Provider SAUL ARMIJO Attending Provider SAUL ARMIJO Referring Provider Dr. Ion Williamson DO Primary Care Provider Dr. Ion Williamson DO Attending Provider [phone] Dr. Ion Williamson DO Referring Provider [phone] ION WILLIAMSON Primary Care Unavailable SAUL ARMIJO Attending Unavailable SAUL ARMIJO Attending Unavailable ION WILLIAMSON Primary Care Unavailable ION WILLIAMSON Primary Care Unavailable SAUL ARMIJO Attending Unavailable ION WILLIAMSON Primary Care Unavailable SAUL ARMIJO Attending Unavailable ION WILLIAMSON Primary Care Unavailable EBONY VANESSA Referring Unavaila ble TAMBURRO, ION Primary Care Unavailable ROBERT BRUCE Attending Unavailable TAMBURRO, ION Primary Care Unavailable ROBERT BRUCE Attending Unavailable CHUNG MINER Consulting Unavailable TAMBURRO, ION Primary Care Unavailable ROBERT BRUCE Attending Unavailable ROBERT BRUCE Admitting Unavailable TAMBURRO, ION Primary Care Unavailable MARISOL EMERY Attending Unavailable Tamburisaac DO, Dr. Lemon Primary Care Provider [facility] DO, Dr. Lemon Attending Provider [facility] DO, Dr. Lemon Referring Provider [facility] DO, Dr. Lemon Primary Care Provider Ankitro, Ion Referring Unavailable Tamburro, Ion Primary Care Unavailable Tamburro, Ion Attending Unavailable Tamburro, Ion Referring Unavailable Tamburro, Ion Primary Care Unavailable Tamrebekahro, Ion Attending Unavailable Tamburro, Ion Attending Unavailable Tamburro, Ion Referring Unavailable Tamburro, Ion Primary Care Unavailable JOLENE ALLEN Attending Unavailable JOLENE ALLEN Referring Unavailable Tamburro, Ion Primary Care Unavailable JOLENE ALLEN Attending Unavailable BRET ALLENN Referring Unavailable Tamburro, Ion Primary Care Unavailable Tamburro, Ion Primary Care Unavailable Tamburro, Ion Referring Unavailable Tamburro, Ion Attending Unavailable Tamburro, Ion Primary Care Unavailable Tamburro, Ion Referring Unavailable Tamburro, Ion Attending Unavailable Tamburro, Ion Attending Unavailable Tamburro, Ion Referring Unavailable Tamburro, Ion Primary Care Unavailable Tamburro, Ion Primary Care Unavailable Tamburro, Ion Referring Unavailable Tamburro, Ion Attending Unavailable Tamburro, Ion Primary Care Unavailable Tamburro, Ion Referring Unavailable Tamburro, Ion Attending Unavailable Tamburro, Ion Primary Care Unavailable Tamburro, Ion Referring Unavailable Tamburro, Ion Attending Unavailable Tamburro, Ion Referring Unavailable Tamburro, Ion Primary Care Unavailable Tamburro, Ion Attending Unavailable Tamburro, Ion Referring Unavailable Tamburro, Ion Primary Care Unavailable Tamburro, Ion Attending Unavailable Allergies Allergy Classification Reported Allergen(s) Allergy Type Date of Onset Reaction(s) Facility (20 sources) Amoxicillin; Translations: [AMOXICILLIN] Drug Allergy 08-09-2014 GI Upset [facility] (1 source) Amoxicillin Drug Allergy 10-14-2023 [facility] Repository Medications Current Medications Medication Drug Class(es) Dates Sig (Normalized) Sig (Original) cetirizine hydrochloride 10 mg oral tablet (1 source) Histamine-1 Receptor Antagonist cetirizine (ZyrTEC) 10 MG tablet Take by mouth as needed for allergies. Active Continuous Glucose Sensor (Dexcom G7 Sensor) misc (20 sources) Start: 06-18-2024 Continuous Glucose Sensor (Dexcom G7 Sensor) misc Indications: Type 2 diabetes mellitus with hyperglycemia, with long-term current use of insulin (HCC) Use every 10 days 9 each 5 06/18/2024 Active Start: 11-29-2023 End: 06-18-2024 Continuous Glucose Sensor (D excom G7 Sensor) misc Use every 10 days 9 each 5 11/29/2023 06/18/2024 Discontinued (Reorder) Start: 11-29-2023 Continuous Glu cose Sensor (Dexcom G7 Sensor) misc Use every 10 days 9 each 5 11/29/2023 Active diazePAM 5 mg oral tablet (20 sources) Benzodiazepine Start: 01-12-2021 take 1 tablet by mouth at bedtime as needed for anxiety Diazepam 5 mg tablet Active 5 mg PO AT BEDTIME as needed for Anxiety March 06, 2022 1:00am Comment on above: as needed for anxiet y (02/07/21 procedure). fluticasone propionate 0.05 mg/actuat metered dose nasal spray (1 source) Corticosteroid take 2 spray(s) nasal route once daily fluticasone (Flonase) 50 MCG/ACT nasal spray Administer 2 sprays into each nostril daily. Shake gently. Before first use, prime pump. After use, clean tip and replace cap. Active glimepiride 2 mg oral tablet (20 sources) Sulfonylurea Start: 06-25-2023 End: 12-16-2023 take 1 tablet by mouth twice daily Glimepiride 2 mg tablet Active 2 mg PO TWICE A DAY June 25, 2023 12:00am Start: 06-25-2023 take 2 mg by mouth once daily Glimepiride Active 2 MG PO DAILY June 25, 2023 12:00am Start: 01-27-2021 End: 01-17-2022 take 1 tablet by mouth twice daily at mealtime glimepiride (AMARYL) 2 mg tablet Indications: Type 2 diabetes mellitus with other specified complication, without long-term current use of insulin (HCC) Take 1 tablet by mouth twice daily with meals. 180 tablet 2 10/19/2021 Active Comment on above: Take 2 mg by mouth t wice daily with meals. Take 1 tablet by maxx th twice daily with meals. glucagon 3 mg nasal powder (20 sources) Antihypoglycemic Agent Start: take 3 mg nasal route once as needed glucagon (Baqsimi Two Pack) 3 MG/DOSE nasal powder Indications: Type 2 diabetes mellitus with hyperglycemia, with long-term current use of insulin ([facility]) Administer 3 mg into affected nostril(s) Once as needed for low blood sugar. 2 each 3 01/14/2024 Active Start: 01-14-2024 End: 01-14-2024 inject 0.2 mL by subcutaneous injection once as needed glucagon (Gvoke HypoPen 2-Pack) 1 MG/0.2ML injection Indications: Type 2 diabetes mellitus with hyperglycemia, with long-term current use of insulin ([facility]) Inject 0.2 mL (1 mg) under the skin Once as needed for low blood sugar for up to 8 doses. 2 each 3 01/14/2024 01/14/2024 Discontinued Start: 11-26-2023 End: 11-29-2023 1 mg, IntraMUSCular, PRN, lo w blood sugar, Blood glucose less than 70 mg/dL and patient NOT ALERT or NPO and does not have IV access., Starting on Sat11/26/23 at 1609, After administration, attempt intravenous access and start D5W at 100 mL/hr. Repeat blood glucose in 15 minutes x2 and notify provider. Glucose (20 sources) Start: 01-14-2024 End: 01-13-2025 glucose 4 g chewable tablet Indications: Type 2 diabetes mellitus with hyperglycemia, with long-term current use of insulin ([facility]) Chew 4 tablets (16 g) Daily as needed for low blood sugar. 50 tablet 3 01/14/2024 01/13/2025 Active Start: 11-26-2023 End: 11-29-2023 12.5 g, IntraVENous, PRN, lo w blood sugar, Blood glucose less than 70 mg/dL and patient NOT ALERT or NPO., Starting on Sat11/26/23 at 1609, If patient does not respond within 5 minutes, repeat dose x1. Start D5W at 100 mL/hour until ordering provider can be reached. Repeat blood glucose in 15 minutes. If blood glucose is less than 70 mg/dL, repeat treatment and recheck blood glucose in 15 minutes x2. If using Glucostabilizer, dose as instructed per system. Start: 11-26-2023 End: 11-29-2023 100 mL/hr, IntraVENous, PRN, Blood sugar less than 70mg/dL, Starting on Sat11/26/23 at 1609, Start infusion following administration of dextrose 50% or glucagon. indapamide 2.5 mg oral tablet (20 sources) Thiazide-like Diuretic Start: 02-29-2020 End: 01-17-2022 take 1 tablet by mouth once daily Indapamide 2.5 MG tablet Active 2.5 mg PO DAILY February 29, 2020 1:00am Comment on above: Take 2.5 mg by mouth once daily. Take 1 tablet by maxx th once daily. 3 ml insulin glargine 100 unt/ml pen injector (20 sources) Insulin Analog Start: 06-18-2024 End: 06-18-2025 Basaglar KwikPen 100 UNIT/ML pen Indications: Type 2 diabetes mellitus with hyperglycemia, with long-term current use of insulin (HCC) Inject 12 Units under the skin every morning. 10.8 mL 3 06/18/2024 06/18/2025 Active Start: 04-23-2024 End: 06-18-2024 Basaglar KwikPen 100 UNIT/ML pen Indications: Type 2 diabetes mellitus with hyperglycemia, with long-term current use of insulin (HCC) Inject 16 Units under the skin every morning. 14.4 mL 3 04/23/2024 06/18/2024 Discontinued (Dose adjustment) Start: 01-03-2024 End: 03-18-2025 Basaglar KwikPen 100 UNIT/ML pen Indications: Type 2 diabetes mellitus with hyperglycemia, with long-term current use of insulin (HCC) Inject 24 Units under the skin every morning. 21.6 mL 3 03/18/2024 04/23/2024 Discontinued Start: 11-29-2023 End: 02-20-2025 Basaglar KwikPen 100 UNIT/ML pen Indications: Type 2 diabetes mellitus with hyperglycemia, with long-term current use of insulin (HCC) Inject 20 Units under the skin every morning. 21.6 mL 3 02/21/2024 03/18/2024 Discontinued (Reorder) Start: 11-28-2023 End: 11-29-2023 inject 20 [IU] by subcutaneous injection once daily in the morning 20 Units, SubCUTAneous, Every morning, First dose (after last modification) on Franny 11/28/23 at 0915 Start: 11-27-2023 inject 15 [IU] by torres bcutaneous injection once 15 Units, SubCUTAneous, Once, On Sat11/27/23 at 1045, For 1 dose isopropyl alcohol 0.7 ml/ml medicated pad (20 sources) Start: 01-14-2024 Alcohol Swabs pads Indications: Type 2 diabetes mellitus with hyperglycemia, with long-term current use of insulin (HCC) Use as directed 4 times daily 400 each 11 01/14/2024 Active ondansetron 4 mg oral tablet (20 sources) Serotonin-3 Receptor Antagonist Start: 09-26-2023 take 1 tablet by mouth every four to six hours as needed for nausea and vomiting Ondansetron Hcl 4 mg tablet Active 4 mg PO .Q4-6H PRN as needed for nausea and vomiting September 26, 2023 12:00am Start: 04-16-2021 take 1 tablet by maxx th every six hours as needed ondansetron orally disintegrating (ZOFRAN ODT) 4 mg disintegrating tablet Take 1 tablet by mouth every 6 hours as needed. 0 04/16/2021 Active ondansetron (Zof ran) 4 MG tablet Take by mouth. PRN Active Comment on above: Take 1 tablet by maxx th every 6 hours as needed. microencapsulated potassium chloride 20 meq extended release oral tablet (20 sources) Start: 11-02-2023 potassium chloride CR (Klor-Con M20) 20 MEQ ER tablet Take 20 mEq by mouth daily. Take with food. 11/02/2023 Active Start: 03-06-2022 take 20 mEq by mouth once zoe y Potassium Chloride (Klor-Con) 20 mEq packet Active 20 meq PO DAILY March 06, 2022 1:00am Start: 12-08-2019 End: 01-17-2022 take 1 tablet by mouth once daily Potassium Chloride 20 MEQ tablet Discontinued 20 meq PO DAILY February 29, 2020 1:00am January 06, 2021 8:32am End: 06-18-2024 take 20 mEq by mouth once daily Potassium Chloride (KL OR-CON PO) Take 20 mEq by mouth daily. 06/18/2024 Discontinued (Med list cleanup) Comment on above: Take 1 tablet by maxx th as needed. rosuvastatin calcium 5 mg oral tablet (9 sources) HMG-CoA Reductase Inhibitor Start: End: take 1 tablet by mouth once daily rosuvastatin (Crestor) 5 MG tablet Indications: Type 2 diabetes mellitus with hyperglycemia, with long-term current use of insulin (HCC) Take 1 tablet (5 mg) by mouth Nightly. 90 tablet 3 09/22/2024 09/22/2025 Active Tirzepatide (Mounjaro) 5 MG/0.5ML solution auto-injector (10 sources) Start: Tirzepatide (Mounjaro) 5 MG/0.5ML solution auto-injector Indications: Type 2 diabetes mellitus with hyperglycemia, with long-term current use of insulin (HCC) Inject 5 mg under the skin every 7 days. 6 mL 09/22/2024 Active Start: 09-10-2024 End: 09-22-2024 inject 5 mg by subcutaneous injection every week Tirzepatide (Mounjaro) 5 MG/0.5ML solution auto-injector Indications: Type 2 diabetes mellitus with hyperglycemia, with long-term current use of insulin (HCC) INJECT 5 MG SUBCUTANEOUSLY ONCE WEEKLY. 6 mL 09/10/2024 09/22/2024 Discontinued (Reorder) Start: 09-10-2024 inject 5 mg by subcu taneous injection every week Tirzepatide (Mounjaro) 5 MG/0.5ML solution auto-injector Indications: Type 2 diabetes mellitus with hyperglycemia, with long-term current use of insulin (HCC) INJECT 5 MG SUBCUTANEOUSLY ONCE WEEKLY. 6 mL 09/10/2024 Active Start: 06-18-2024 End: 09-10-2024 inject 5 mg by subcutaneous injection every week Tirzepatide (Mounjaro) 5 MG/0.5ML solution auto-injector Indications: Type 2 diabetes mellitus with hyperglycemia, with long-term current use of insulin (HCC) Inject 5 mg under the skin 1 (one) time per week. 2 mL 1 06/18/2024 09/10/2024 Discontinued Start: 06-18-2024 End: 06-18-2025 inject 5 mg by subcutaneous injection every week Tirzepatide (Mounjaro) 5 MG/0.5ML solution auto-injector Indications: Type 2 diabetes mellitus with hyperglycemia, with long-term current use of insulin (HCC) Inject 5 mg under the skin 1 (one) time per week. 2 mL 1 06/18/2024 06/18/2025 Active Completed/Discontinued Medications Medication Drug Class(es) Dates Sig (Normalized) Sig (Original) acetaminophen 500 mg oral capsule (20 sources) Start: 11-29-2023 End: 12-29-2023 take 2 capsules by mouth every six hours as needed for pain Acetaminophen 500 MG capsule Indications: Pain Take 2 capsules (1,000 mg) by mouth every 6 hours as needed for mild pain (1-3). 60 tablet 11/29/2023 12/29/2023 Start: 11-26-2023 End: 11-29-2023 take 1 tablet by mouth every six hours 1,000 mg, Oral, Every 6 hours, First dose on Sat11/26/23 at 1045, Maximum dose of acetaminophen is 4000 mg from all sources in 24 hours. Start: 11-26-2023 End: 11-26-2023 1,000 mg, Oral, Once, On Sat11/26/23 at 0830, For 1 dose, Preprocedure, Administer 60 minutes prior to surgery. Start: 05-14-2018 acetaminophen (TYLENOL) 325 mg tablet Take 2 tablets by mouth as needed. 0 05/14/2018 Active acetaminophen (T ylenol) 325 MG suppository Insert into the rectum. Active Comment on above: Take 2 tablets by [facility] as needed. acetaminophen 325 mg / chlorpheniramine maleate 2 mg oral tablet (20 sources) Histamine-1 Receptor Antagonist Start: 02-29-2020 End: 01-06-2021 Chlorpheniramine-Acetam inophen 1 EACH tablet Discontinued 1 NMA PO EVERY 4 HOURS NEEDED as needed for Cold Symptons February 29, 2020 1:00am January 06, 2021 8:32am Start: 02-29-2020 End: 01-06-2021 Chlorpheniramine-Acetaminoph en Discontinued 1 EACH PO EVERY 4 HOURS NEEDED February 29, 2020 1:00am January 06, 2021 8:32am acetaminophen 325 mg / HYDROcodone bitartrate 5 mg oral tablet (20 sources) Opioid Agonist Start: 07-10-2014 End: 08-09-2014 Hydrocodone-Acetaminophen 1 TABLET tablet Discontinued 1 - 2 {tbl} PO EVERY 4 HOURS NEEDED as needed for Pain July 10, 2014 12:00am August 09, 2014 1:00pm Start: 07-10-2014 End: 08-09-2014 take 1 tablet by mouth every four hours as needed Hydrocodone-Acetaminophen Discontinued 1 - 2 TABLET PO EVERY 4 HOURS NEEDED July 10, 2014 12:00am August 09, 2014 1:00pm [id number] 200 actuat albuter ol 0.09 mg/actuat metered dose inhaler (20 sources) beta2-Adrenergic Agonist Start: 11-26-2023 End: 11-29-2023 Start: 03-06-2022 take 1.25 mg by inha lation every four hours as needed for wheezing Albuterol Sulfate 1.25 mg/3 mL solution for nebulization Active 1.25 mg INHALATION Q4H as needed for shortness of breath or wheezing March 06, 2022 1:00am Start: 03-06-2022 Albuterol Sulf ate 90 mcg/actuation aerosol powdr breath activated Active 2 NMA INHALATION EVERY 6 HOURS as needed for WHEEZING March 06, 2022 1:00am Start: 03-06-2022 Albuterol Sulf ate Active 2 INH INHALATION EVERY 6 HOURS March 06, 2022 1:00am Start: 08-08-2021 Albuterol Sulf ate 1.25 mg/3 mL nebulizer solution Use 1 Ampule via nebulizer as needed. 0 08/08/2021 Active Start: 08-04-2021 albuterol HFA (PROVENTIL HFA, VENTOLIN HFA) 90 mcg/actuation inhaler Inhale 2 Puffs as instructed as needed. 0 08/04/2021 Active Start: 05-18-2017 End: 01-06-2021 take 2.5 mg by inhalation every four hours Albuterol Sulfate 2.5 MG/3 ML solution for nebulization Discontinued 2.5 mg INHALATION EVERY 4 HOURS WHILE AWAKE May 18, 2017 1:00am January 06, 2021 8:31am take 2 puff(s) by in halation every six hours as needed for wheezing albuterol 108 (90 Base) MCG/ACT inhaler Inhale 2 puffs every 6 hours as needed for wheezing. Active Comment on above: Inhale 2 Puffs as in structed as needed. Use 1 Ampule via neb ulizer as needed. albuterol 0.833 mg/ml / ipratropium bromide 0.167 mg/ml inhalation solution (20 sources) Anticholinergic, beta2-Adrenergic Agonist Start: 03-06-2022 End: 03-11-2022 Ipratropium-Albuterol 0.5 mg-3 mg(2.5 mg base)/3 mL solution for nebulization Discontinued 3 mL INHALATION 6 times per day 90 5 0 March 06, 2022 1:00am March 10, 2022 1:00am March 11, 2022 1:04am Start: 03-06-2022 End: 03-11-2022 Ipratropium-Albuterol Discon tinued 3 ML INHALATION 6 times per day 90 5 March 06, 2022 1:00am March 11, 2022 1:04am apixaban 2.5 mg oral tablet (20 sources) Factor Xa Inhibitor Start: 11-29-2023 End: 09-22-2024 take 1 tablet by mouth twice daily apixaban (Eliquis) 2.5 MG tablet Take 1 tablet (2.5 mg) by mouth 2 times daily for 28 days. 56 tablet 11/29/2023 09/22/2024 Discontinued (Med list cleanup) ascorbic acid 1000 mg oral tablet (20 sources) Vitamin C Start: 02-29-2020 End: 01-06-2021 take 2 tablets by mouth once daily Ascorbic Acid (Vitamin C) 1,000 MG tablet Discontinued 2000 mg PO DAILY February 29, 2020 1:00am January 06, 2021 8:31am Start: 02-29-2020 End: 01-06-2021 take 2000 mg by mouth once daily Ascorbic Acid (Vitamin C) Discontinued 2000 MG PO DAILY February 29, 2020 1:00am January 06, 2021 8:31am Ascorbic Acid (v itamin C) 100 MG tablet Take 100 mg by mouth as needed. Active aspirin 81 mg chewable tablet (20 sources) Platelet Aggregation Inhibitor, Nonsteroidal Anti-inflammatory Drug Start: 02-29-2020 End: 01-06-2021 take 1 tablet by mouth once daily Aspirin 81 MG tablet,chewable Discontinued 81 mg PO DAILY@0800 February 29, 2020 1:00am January 06, 2021 8:31am azithromycin 250 mg oral tablet (20 sources) Macrolide Antimicrobial Start: 03-06-2022 End: 06-25-2023 take 2-5 tablets by mouth once daily Azithromycin 250 mg tablet Discontinued 0 PO .COMPLEX 6 0 March 06, 2022 1:00am June 25, 2023 8:10am take 500 mg today (day 1), then 250 mg for 4 days (days 2-5) PO Start: 02-29-2020 End: 01-06-2021 Azithromycin 250 MG tablet D iscontinued 250 mg PO DIRECTED February 29, 2020 1:00am January 06, 2021 8:31am calcium chloride 0.0014 meq/ml / potassium chloride 0.004 meq/ml / sodium chloride 0.103 meq/ml / sodium lactate 0.028 meq/ml injectable solution (4 sources) Start: 11-26-2023 End: 11-29-2023 take 125 mL intravenously every hour 125 mL/hr, IntraVENous, Continuous, Starting on Sat11/26/23 at 1045, For 12 hours ceFAZolin 2000 mg injection (2 sources) Cephalosporin Antibacterial Start: 11-26-2023 End: 11-27-2023 take 2000 mg intravenously every eight hours 2,000 mg, IntraVENous, Administer over 30 Minutes, Every 8 hours, First dose on Sat11/26/23 at 1045, For 24 hours, premix bag, Suspected Indication (Select all that apply): Surgical Prophylaxis chlorhexidine gluconate 20 mg/ml medicated pad (2 sources) Start: 11-26-2023 End: 11-26-2023 Topical, PRN, no prior CHG bath to planned surgical site, Starting on Sat11/26/23 at 0823, For 1 dose, Preprocedure, Chlorhexidine Cloth 2% topically to planned surgical site once PRN for outpatients who did not perform CHG bath/shower as instructed or for ED patients and inpatients cholecalciferol 0.05 mg oral capsule (20 sources) Vitamin D Start: 02-29-2020 End: 01-06-2021 take 1 capsule by mouth once daily Cholecalciferol (Vitamin D3) 2,000 UNIT capsule Discontinued 2000 U PO DAILY February 29, 2020 1:00am January 06, 2021 8:32am cholecalciferol 9.52 unt/ml / glucose 357 mg/ml oral gel (2 sources) Vitamin D Start: 11-26-2023 End: 11-29-2023 15 g, Oral, As needed, low blood sugar, Starting on Sat11/26/23 at 1609, If blood glucose less than 50 mg/dL and patient ALERT and NOT NPO, give 2 tubes glucose gel. If blood glucose less than 70 mg/dL and patient ALERT and NOT NPO, give 1 tube glucose gel. Repeat blood glucose in 15 minutes. If blood glucose is less than 70 mg/dL, repeat treatment and recheck blood glucose in 15 minutes x2 and notify provider. docusate sodium 100 mg oral capsule (7 sources) Start: 11-29-2023 End: 12-09-2023 take 1 capsule by mouth twice daily docusate sodium (Colace) 100 MG capsule Take 1 capsule (100 mg) by mouth 2 times daily for 10 days. 20 capsule 11/29/2023 12/09/2023 docusate sodium 50 mg / sennosides, senior living 8.6 mg oral tablet (2 sources) Start: 11-26-2023 End: 11-29-2023 take 2 tablets by mouth every twenty-four hours as needed for constipation 2 tablet, Oral, Daily PRN, constipation, Starting on Sat11/26/23 at 1042 0.4 ml enoxaparin sodium 100 mg/ml prefilled syringe (2 sources) Low Molecular Weight Heparin Start: 11-27-2023 End: 11-29-2023 inject 40 mg by subcutaneous injection every twenty-four hours 40 mg, SubCUTAneous, Every 24 hours scheduled (Daily), First dose on Sat11/27/23 at 0900, Indication of Use: Prophylaxis-DVT/PE , Indications: Prophylaxis of Venous Thromboembolism glipiZIDE 5 mg oral tablet (2 sources) Sulfonylurea Start: 11-26-2023 End: 11-27-2023 5 mg, Oral, 2 times daily before meals, First dose (after last modification) on Sat11/26/23 at 2045, Substituted for glimepiride (Amaryl). hydroCHLOROthiazide 25 mg oral tablet (2 sources) Thiazide Diuretic Start: 11-27-2023 End: 11-29-2023 take 50 mg by mouth once daily 50 mg, Oral, Daily, First dose on Sat11/27/23 at 0900, Substituted for Indapamide (LOZOL). 1 ml HYDROmorphone hydrochloride 1 mg/ml cartridge (2 sources) Opioid Agonist Start: 11-26-2023 End: 11-26-2023 0.5 mg, IntraVENous, Every 5 min PRN, severe pain (7-10), Starting on Sat11/26/23 at 1056, For 4 doses, Recovery (only), Phase I and Phase II- Initial therapy for severe pain (7-10). Restricted to a 90 minute time frame starting when the patient can verbally state their pain score. If after 2 doses the pain score does not decrease by more than one point, then call the provider. If oral meds are utilized, do not return to initial therapy medications. ibuprofen 600 mg oral tablet (12 sources) Nonsteroidal Anti-inflammator y Drug Start: 11-27-2023 End: 12-29-2023 take 1 tablet by mouth every six hours as needed for pain ibuprofen 600 MG tablet Indications: Pain Take 1 tablet (600 mg) by mouth every 6 hours as needed for mild pain (1-3). 60 tablet 11/29/2023 12/29/2023 3 ml insulin aspart, human 100 unt/ml pen injector (15 sources) Insulin Analog Start: 01-30-2024 End: 01-29-2025 inject 6 [IU] by subcutaneous injection three times daily at mealtime insulin aspart (NovoLOG) 100 UNIT/ML pen Indications: Type 2 diabetes mellitus with hyperglycemia, with long-term current use of insulin (HCC) Inject 6 Units under the skin 3 times daily (with meals). 16.2 mL 3 01/30/2024 02/21/2024 Discontinued (Therapy completed) Start: 01-14-2024 End: 01-13-2025 inject 10 [IU] by subcutaneous injection three times daily at mealtime insulin aspart (NovoLOG) 100 UNIT/ML pen Indications: Type 2 diabetes mellitus with hyperglycemia, with long-term current use of insulin (HCC) Inject 10 Units under the skin 3 times daily (with meals). 21.6 mL 3 01/14/2024 01/30/2024 Discontinued Start: 01-03-2024 End: 01-02-2025 insulin aspart (NovoLOG) 100 UNIT/ML pen Indications: Type 2 diabetes mellitus with hyperglycemia, with long-term current use of insulin (HCC) Inject 8 Units under the skin in the morning and 8 Units at noon and 8 Units in the evening. Inject with meals. 21.6 mL 01/03/2024 01/14/2024 Discontinued (Reorder) End: 03-18-2024 Insulin Aspart (NovoLOG) 100 UNIT/ML solution Inject 6 Units as directed 3 times daily. 03/18/2024 Discontinued (Therapy completed) insulin isophane, human 100 unt/ml injectable suspension (2 sources) Start: 11-27-2023 End: 11-27-2023 inject 10 [IU] by subcutaneous injection once 10 Units, SubCUTAneous, Once, On Sat11/27/23 at 2030, For 1 dose insulin lispro 100 unt/ml injectable solution (10 sources) Insulin Analog Start: 11-28-2023 End: 11-29-2023 inject 7 [IU] by subcutaneous injection three times daily at mealtime 7 Units, SubCUTAneous, 3 times daily with meals, First dose (after last modification) on Sat11/28/23 at 1200 Start: 11-27-2023 End: 11-29-2023 inject 12 [IU] by subcutaneous injection three times daily at mealtime 0-12 Units, SubCUTAneous, 3 times daily with meals, First dose on Sat11/27/23 at 1200, Medium Dose Correction Algorithm Glucose: Dose: LESS than 139 No Insulin 140-199 2 Unit 200-249 4 Units 250-299 6 Units 300-349 8 Units 350-400 10 Units Above 400 12 Units Start: 11-27-2023 End: 11-28-2023 inject 5 [IU] by subcutaneous injection three times daily at mealtime 5 Units, SubCUTAneous, 3 times daily with meals, First dose on Sat11/27/23 at 1200 Start: 11-26-2023 End: 11-26-2023 inject 8 [IU] by subcutaneous injection once 8 Units, SubCUTAneous, Once, On Sat11/26/23 at 1045, For 1 dose, Recovery (only) Start: 11-26-2023 End: 11-26-2023 0-12 Units, SubCUTAneous, DE N, high blood sugar, Surgery patient, Starting on Sat11/26/23 at 0823, For 3 doses, Preprocedure, Corrective Low Dose Algorithm Glucose: Dose: 70-180 No Insulin 181-240 4 Unit 241-300 6 Units 301-350 8 Units 351-400 10 Units Over 400 12 Units and notify physician 24 hr metoprolol succinate 25 mg extended release oral tablet (20 sources) beta-Adrenergic Becky Start: 05-18-2017 End: 05-21-2017 take 1 tablet by mouth once daily Metoprolol Succinate 25 MG Tab.Er.24h Discontinued 25 mg PO DAILY May 18, 2017 1:00am May 21, 2017 11:40am Blood Pressure 1 ml naloxone hydrochloride 0.4 mg/ml injection (2 sources) Opioid Antagonist Start: 11-26-2023 End: 11-29-2023 0.4 mg, IntraVENous, Every 5 min PRN, opioid reversal, respiratory depression, Starting on Sat11/26/23 at 1401, +++ For RR Nirmatrelvir-Ritona vir (20 sources) Start: 08-08-2021 End: 03-06-2022 Nirmatrelvir-Ryley navir (Paxlovid (Eua)) 150 mg x 2- 100 mg tablet Discontinued 0 PO .COMPLEX 30 August 08, 2021 12:00am March 06, 2022 7:06am take TWO 150 mg tablets of nirmatrelvir with ONE 100 mg tablet of ritonavir twice daily for 5 days PO Start: 08-08-2021 End: 03-06-2022 Nirmatrelvir-Ritonavir (Paxl ovid (Eua)) 150 mg x 2- 100 mg tablet Discontinued 0 PO .COMPLEX August 08, 2021 12:00am March 06, 2022 7:06am take TWO 150 mg tablets of nirmatrelvir with ONE 100 mg tablet of ritonavir twice daily for 5 days PO Start: 08-08-2021 End: 03-06-2022 Nirmatrelvir-Ritonavir (Paxl ovid (Eua)) 150 mg x 2- 100 mg tablet Discontinued 0 PO .COMPLEX August 07, 2021 11:00pm March 06, 2022 6:06am take TWO 150 mg tablets of nirmatrelvir with ONE 100 mg tablet of ritonavir twice daily for 5 days PO Start: 08-08-2021 Nirmatrelvir-R itonavir (Paxlovid (Eua)) 150 mg x 2- 100 mg tablet Active 0 PO .COMPLEX August 07, 2021 11:00pm take TWO 150 mg tablets of nirmatrelvir with ONE 100 mg tablet of ritonavir twice daily for 5 days PO Start: 08-08-2021 Nirmatrelvir-R itonavir (Paxlovid (Eua)) 150 mg x 2- 100 mg tablet Active 0 PO .COMPLEX August 08, 2021 12:00am take TWO 150 mg tablets of nirmatrelvir with ONE 100 mg tablet of ritonavir twice daily for 5 days PO ondansetron ODT (Zofran-ODT) disintegrating tablet 4 mg (2 sources) Start: 11-26-2023 End: 11-29-2023 take 1 tablet by mouth every eight hours as needed for nausea and vomiting ondansetron ODT (Zofran-ODT) disintegrating tablet 4 mg oxyCODONE hydrochloride 5 mg oral tablet (8 sources) Opioid Agonist Start: 11-29-2023 End: 12-04-2023 take 1 tablet by mouth every six hours as needed for pain oxyCODONE (Roxicodone) 5 MG immediate release tablet Indications: Acute postoperative pain Take 1 tablet (5 mg) by mouth every 6 hours as needed for severe pain (7-10) for up to 5 days. 15 tablet 11/29/2023 12/04/2023 Start: 11-26-2023 End: 11-29-2023 take 1 tablet by mouth every four hours as needed for pain oxyCODONE (Roxicodone) immediate release tablet 5 mg polyethylene glycol [id number] mg powder for oral solution (2 sources) Osmotic Laxative Start: 11-26-2023 End: 11-29-2023 take 1 dose by mouth every twenty-four hours for constipation 17 g, Oral, Daily, First dose on Sat11/26/23 at 1400, Phase II/On Unit, 1st line for treatment of constipation - give scheduled if no bowel movement in past 24 hours. predniSONE 20 mg oral tablet (20 sources) Start: 03-10-2022 End: 06-25-2023 take 2 tablets by mouth once daily Prednisone 20 mg tablet Discontinued 40 mg PO DAILY March 10, 2022 1:00am June 25, 2023 8:10am Start: 03-10-2022 End: 06-25-2023 take 40 mg by mouth once daily Prednisone Discontinued 40 MG PO DAILY March 10, 2022 1:00am June 25, 2023 8:10am 1 mg dose 1.5 ml semaglutide 1.34 mg/ml pen injector (2 sources) Start: 01-30-2024 End: 01-30-2024 inject 1 mg by subcutaneous injection every week semaglutide (Ozempic, 1 MG/DOSE,) 2 MG/1.5ML solution pen-injector Indications: Type 2 diabetes mellitus with hyperglycemia, with long-term current use of insulin (HCC) Inject 1 mg under the skin 1 (one) time per week. Rotate Injection Sites 3 mL 1 01/30/2024 01/30/2024 Discontinued (Therapy completed) semaglutide (Ozempic, 0.25 or 0.5 MG/DOSE,) 2 MG/3ML solution pen-injector (15 sources) Start: 11-29-2023 End: 01-30-2024 semaglutide (Ozempic, 0.25 or 0.5 MG/DOSE,) 2 MG/3ML solution pen-injector 0.25 mg weekly for 4 weeks then increase to 0.5 mg weekly 3 mL 3 11/29/2023 01/30/2024 Discontinued Start: 11-29-2023 semaglutide (O zempic, 0.25 or 0.5 MG/DOSE,) 2 MG/3ML solution pen-injector 0.25 mg weekly for 4 weeks then increase to 0.5 mg weekly 3 mL 3 11/29/2023 Active semaglutide (Ozempic, 1 MG/DOSE,) 4 MG/3ML solution pen-injector (6 sources) Start: 01-30-2024 End: 03-18-2024 inject 1 mg by subcutaneous injection every week semaglutide (Ozempic, 1 MG/DOSE,) 4 MG/3ML solution pen-injector Indications: Type 2 diabetes mellitus with hyperglycemia, with long-term current use of insulin (HCC) Inject 1 mg under the skin 1 (one) time per week. 9 mL 3 01/30/2024 03/18/2024 Discontinued (Therapy completed) Start: 01-30-2024 inject 1 mg by subcu taneous injection every week semaglutide (Ozempic, 1 MG/DOSE,) 4 MG/3ML solution pen-injector Indications: Type 2 diabetes mellitus with hyperglycemia, with long-term current use of insulin (HCC) Inject 1 mg under the skin 1 (one) time per week. 9 mL 3 01/30/2024 Active Semaglutide, 2 MG/DOSE, (Ozempic, 2 MG/DOSE,) 8 MG/3ML solution pen-injector (7 sources) Start: 03-18-2024 End: 06-18-2024 inject 2 mg by subcutaneous injection every week Semaglutide, 2 MG/DOSE, (Ozempic, 2 MG/DOSE,) 8 MG/3ML solution pen-injector Indications: Type 2 diabetes mellitus with hyperglycemia, with long-term current use of insulin (HCC) Inject 2 mg under the skin 1 (one) time per week. 9 mL 3 03/18/2024 06/18/2024 Discontinued (Therapy completed) Start: 03-18-2024 inject 2 mg by subcu taneous injection every week Semaglutide, 2 MG/DOSE, (Ozempic, 2 MG/DOSE,) 8 MG/3ML solution pen-injector Indications: Type 2 diabetes mellitus with hyperglycemia, with long-term current use of insulin (HCC) Inject 2 mg under the skin 1 (one) time per week. 9 mL 3 03/18/2024 Active 5 ml sodium chloride 9 mg/ml injection (6 sources) Start: 11-26-2023 End: 11-29-2023 10 mL, IntraVENous, Every 12 hours scheduled (2 times per day), First dose on Sat11/26/23 at 2100, Phase II/On Unit Start: 11-26-2023 End: 11-29-2023 Start: 11-26-2023 End: 11-29-2023 zinc sulfate 220 mg oral tablet (20 sources) Start: 02-29-2020 End: 01-06-2021 take 1 tablet by mouth once daily Zinc Sulfate 220 MG tablet Discontinued 220 mg PO DAILY February 29, 2020 1:00am January 06, 2021 8:32am Problems Active Problems Problem Classification Problem Date Documented Da te Episodic/Chronic Abdominal pain (2 sources) Pain in female pelvis; Translations: [Pelvic and perineal pain] 2023 Episodic Acute bronchitis (17 sources) Acute bronchitis; Translations: [Acute bronchitis, unspecified] Episodic Benign neoplasm of uterus (6 sources) Uterine leiomyoma; Translations: [Leiomyoma of uterus, unspecified] 09-04-2023 Episodic Chronic obstructive pulmonary disease and bronchiectasis (20 sources) Bronchitis; Translations: [Bronchitis, not specified as acute or chronic] 03-18-2022 Episodic Chronic ulcer of skin (20 sources) Pressure ulcer; Translations: [Pressure ulcer of unspecified site, unspecified stage] Onset: 12-05-2020 09-12-2021 Chronic Diabetes mellitus with complications (20 sources) Hyperglycemia due to type 2 diabetes mellitus; Translations: [Type 2 diabetes mellitus with hyperglycemia] Onset: 03-18-2024 01-03-2024 Chronic Diabetes mellitus without complication (20 sources) Type 2 diabetes mellitus; Translations: [Type 2 diabetes mellitus without complications] Onset: 02-07-2021 02-07-2021 Chronic Essential hypertension (20 sources) Hypertensive disorder; Translations: [Essential (primary) hypertension] Onset: 05-13-2018 09-12-2021 Chronic Comment on above: CONTROLLED WITH MED Hypertension with complications and secondary hypertension (2 sources) Hypertension secondary to endocrine disorders; Translations: [Hypertension secondary to endocrine disorders] Onset: 09-22-2024 Chronic Immunizations and screening for infectious disease (20 sources) Patient encounter status; Translations: [Encounter for screening for COVID-19] Episodic Menopausal disorders (6 sources) Postmenopausal bleeding; Translations: [Postmenopausal bleeding] 09-04-2023 Chronic Nausea and vomiting (20 sources) Vomiting; Translations: [Vomiting, unspecified] Onset: 09-12-2021 Episodic Noninfectious gastroenteritis (20 sources) Gastroenteritis; Translations: [Noninfective gastroenteritis and colitis, unspecified] Episodic Nonmalignant breast conditions (20 sources) Calcification of breast; Translations: [Mammographic calcification found on diagnostic imaging of breast] Onset: 02-07-2021 Episodic Osteoarthritis (13 sources) Degenerative joint disease involving multiple joints; Translations: [Polyosteoarthritis, unspecified] Onset: 05-13-2018 09-12-2021 Chronic Other and unspecified benign neoplasm (1 source) Fibroadenoma of right breast; Translations: [Benign neoplasm of right breast] Episodic Other connective tissue disease (20 sources) Pain in buttock; Translations: [Myalgia, other site] Onset: 09-12-2021 09-12-2021 Episodic Other connective tissue disease (20 sources) Cramp; Translations: [Cramp and spasm] Onset: 09-12-2021 09-12-2021 Episodic Other female genital disorders (11 sources) Abnormal uterine bleeding; Translations: [Abnormal uterine and vaginal bleeding, unspecified] 06-25-2023 Chronic Comment on above: US. NO TV probe. If abnormal or recurrent bleeding, needs EMB under anesthesia Other female genital disorders (5 sources) Abnormal uterine and vaginal bleeding, unspecified; Translations: [Unspecified disorders of menstruation and other abnormal bleeding from female genital tract] Onset: 2023 06-25-2023 Chronic Other gastrointestinal disorders (2 sources) Pelvic mass; Translations: [Intra-abdominal and pelvic swelling, mass and lump, unspecified site] 10-17-2023 Episodic Other liver diseases (20 sources) Steatosis of liver; Translations: [Fatty (change of) liver, not elsewhere classified] 01-06-2021 Chronic Other liver diseases (5 sources) Non-alcoholic fatty liver; Translations: [Fatty (change of) liver, not elsewhere classified] Onset: 12-04-2019 09-12-2021 Chronic Other liver diseases (8 sources) Fatty (change of) liver, not elsewhere classified; Translations: [Other chronic nonalcoholic liver disease] Onset: 12-04-2019 09-12-2021 Chronic Other nervous system disorders (2 sources) Acute postoperative pain; Translations: [Other acute postprocedural pain] 11-29-2023 Episodic Other nutritional; endocrine; and metabolic disorders (20 sources) Obese class II; Translations: [Obesity, unspecified] Onset: 02-07-2021 02-07-2021 Chronic Other nutritional; endocrine; and metabolic disorders (3 sources) Body mass index 30+ - obesity; Translations: [Obesity, unspecified] 01-14-2024 Chronic Other nutritional; endocrine; and metabolic disorders (5 sources) Severe obesity; Translations: [Class 2 severe obesity with serious comorbidity and body mass index (BMI) of 37.0 to 37.9 in adult, unspecified obesity type (HCC)] 03-18-2024 Chronic Other nutritional; endocrine; and metabolic disorders (2 sources) Morbid (severe) obesity due to excess calories; Translations: [Morbid (severe) obesity due to excess calories (HCC)] Onset: 03-18-2024 Chronic Other nutritional; endocrine; and metabolic disorders (2 sources) Body mass index (BMI) 37.0-37.9, adult; Translations: [Body mass index (BMI) 37.0-37.9, adult] Onset: 03-18-2024 Chronic Other nutritional; endocrine; and metabolic disorders (2 sources) Obesity, unspecified; Translations: [Obesity, unspecified] Onset: 01-14-2024 Chronic Paralysis (20 sources) Paraplegia; Translations: [Paraplegia, unspecified] Onset: 05-13-2018 02-07-2021 Chronic Comment on above: WHEELCHAIR/SINCE AGE 2 Pleurisy; pneumothorax; pulmonary collapse (20 sources) Atelectasis; Translations: [Atelectasis] 03-18-2022 Episodic Pneumonia (except that caused by tuberculosis or sexually transmitted disease) (20 sources) Community acquired pneumonia; Translations: [Pneumonia, unspecified organism] Onset: 09-12-2021 09-12-2021 Episodic Residual codes; unclassified (7 sources) Wheelchair bound; Translations: [Dependence on wheelchair] Onset: 02-07-2021 02-07-2021 Chronic Residual codes; unclassified (15 sources) Dependence on wheelchair; Translations: [Dependence on wheelchair] Onset: 02-07-2021 02-07-2021 Chronic Septicemia (except in labor) (20 sources) Sepsis; Translations: [Sepsis, unspecified organism] Onset: 09-12-2021 Resolved: 11-19-2021 09-12-2021 Episodic Unclassified (1 source) Dense breast tissue; Translations: [Dense breast tissue] Onset: 11-08-2022 Unclassified (1 source) Obesity, class 2; Translations: [Obesity, class 2] Onset: 03-18-2024 Unclassified (2 sources) Post-op Visit; Translations: [Post-op Visit] Onset: 12-16-2023 Viral infection (20 sources) Disease caused by 2019-nCoV; Translations: [COVID-19] 08-08-2021 Episodic Past or Other Problems Problem Classification Problem Date Documented Da te Episodic/Chronic Fluid and electrolyte disorders (15 sources) Hypokalemia; Translations: [Hypokalemia] Onset: 07-06-2020 09-12-2021 Episodic Other aftercare (2 sources) 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; Translations: [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)] Onset: 03-18-2024 Episodic Other connective tissue disease (13 sources) Cramp in lower limb; Translations: [Cramp and spasm] Onset: 10-30-2019 09-12-2021 Episodic Other gastrointestinal disorders (13 sources) Constipation; Translations: [Constipation, unspecified] Onset: 05-14-2018 09-12-2021 Episodic Other gastrointestinal disorders (20 sources) Finding of abdominopelvic segment of trunk; Translations: [Intra-abdominal and pelvic swelling, mass and lump, unspecified site] Onset: 11-26-2023 11-26-2023 Episodic Other gastrointestinal disorders (1 source) Intra-abdominal and pelvic swelling, mass and lump, unspecified site; Translations: [Intra-abdominal and pelvic swelling, mass and lump, unspecified site] Onset: 11-26-2023 Episodic Other liver diseases (13 sources) Elevated liver enzymes level; Translations: [Abnormal levels of other serum enzymes] Onset: 11-02-2019 09-12-2021 Episodic Other nervous system disorders (2 sources) Other acute postprocedural pain; Translations: [Other acute postprocedural pain] Onset: 11-26-2023 Episodic Other nutritional; endocrine; and metabolic disorders (13 sources) Excessive thirst; Translations: [Polydipsia] Onset: 01-12-2021 09-12-2021 Episodic Other screening for suspected conditions (not mental disorders or infectious disease) (20 sources) Mammography abnormal; Translations: [Other abnormal and inconclusive findings on diagnostic imaging of breast] Onset: 12-27-2020 09-12-2021 Episodic Residual codes; unclassified (15 sources) Family history of breast cancer; Translations: [Family history of malignant neoplasm of breast] Onset: 05-13-2018 Episodic Residual codes; unclassified (19 sources) At high risk for breast cancer; Translations: [Other specified personal risk factors, not elsewhere classified] Onset: 03-07-2021 Episodic Residual codes; unclassified (8 sources) Past history of procedure; Translations: [Other specified postprocedural states] Onset: 04-27-2022 04-27-2022 Episodic Residual codes; unclassified (1 source) Other specified personal risk factors, not elsewhere classified; Translations: [At high risk for breast cancer] Onset: 03-07-2021 Episodic Residual codes; unclassified (19 sources) Postoperative state; Translations: [Other specified postprocedural states] Onset: 01-20-2024 01-20-2024 Episodic Unclassified (1 source) Obesity, class 2; Translations: [Obesity, class 2] Onset: 03-18-2024 Results Test Name Value Interpretation Reference Range Facility [facility] 09-22-2024 37 *Please arrive 15 minutes prior to your scheduled appointment to ensure we have adequate time together at each visit to address all your health needs *It is recommended that you schedule your follow up appointments well in advance as the schedule fills up quickly *Bring your glucometer, blood sugar logs or CGM if being seen for diabetic care to ensure your trends can be thoroughly evaluated *Ordered labs should be done at least a week prior to your next scheduled appointment, fasting unless instructed otherwise *Due to possible lab interference, please hold any biotin-containing supplements including multivitamins or other over the counter supplements for at least 5 days prior to your labs being done. *Should you have any questions or concerns regarding your plan of shoaib, please send me a message via [employer] or call [phone] so we can address your needs *Please notify at appointments of any refill needs. Should you require refills prior to your next appointment, please notify the office at least a week prior to your last dose to allow adequate time for review and authorization if required. To Do List: Try Metamucil over the counter Fasting labs in 3 months Message/call in 2 weeks with update on Constipation symptoms/download - Test your blood sugar 4 times daily via glucometer (or by continuous glucose monitor) and send message/readings to office in 2 weeks for review. Sooner if issues arise. - Your A1c goal is 7% or less - Work on lifestyle modifications of diet and exercise to assist with improving diabetic control - Check your feet daily for optimal foot care- follow with podiatry if needed - Continue following with ophthalmology every year for your dilated eye exam - Please take your medication as prescribed. If you encounter issues with side effects, glucose control, or cost please let me know - Uncontrolled diabetes has effects on multiple organ systems. Keeping your trends at goal and with limited variability will help to reduce your risk for future complications such as heart disease, chronic kidney disease, nerve damage (neuropathy), and other problems with your feet, oral health, vision, hearing, and mental health. - Be mindful of symptoms of both hypoglycemia (<70) and hyperglycemia (>250) and notify me if you are seeing trends outside these parameters consistently so we can adjust your plan of care. Normal [facility] AMB POC HEMOGLOBIN [id number] d By: Jazmin Guerra on 09-22-2024 HbA1c (Bld) [Mass fraction] 6.3 % Abnormal - 5.7 % [facility] HbA1c (Bld) [Mass fraction]O rdered By: Jazmin Guerra on 09-22-2024 Interpretation and review of laboratory results Abnormal [facility] Office Visiton 09-22-2024 Follow-up visit [id number] Taylor Wesley 1965 F Date Provider Department Center 09/22/2024 [id number] None Family History Problem Relation Age of Onset Breast cancer Mother Diabetes Maternal Grandmother Family Status - Relation Status Age at Mother Maternal Grandmother Level of Service:62669 DE OFFICE/OUTPATIENT ESTABLISHED MOD MDM 30 MIN Reason for Visit and Comments: Diabetes [34] Normal [facility] Progress Noteon 09-22-2024 Progress Note [facility] [address] [place] [address] Dept: [phone] Dept Loc: [phone] Visit type: Established Patient Reason for Visit: Diabetes Assessment and Plan 1. Type 2 diabetes mellitus with hyperglycemia, with long-term current use of insulin (HCC) - AMB POC HEMOGLOBIN A1C - Hemoglobin A1c - Comprehensive metabolic panel - Lipid panel - Vitamin D Deficiency Screening (Vit D 25) - rosuvastatin (Crestor) 5 MG tablet; Take 1 tablet (5 mg) by mouth Nightly., Starting Sat09/22/2024, Until Sat09/22/2025, Normal - Tirzepatide (Mounjaro) 5 MG/0.5ML solution auto-injector; Inject 5 mg under the skin every 7 days., Starting Sat09/22/2024, Normal 2. Hypertension associated with type 2 diabetes mellitus (HCC) - Vitamin D Deficiency Screening (Vit D 25) 3. Class 2 severe obesity with serious comorbidity and body mass index (BMI) of 37.0 to 37.9 in adult, unspecified obesity type (HCC) - Vitamin D Deficiency Screening (Vit D 25) Lab Results Component Value Date HGBA1C 6.3 (A) 09/22/2024 HGBA1C 6.2 (A) 06/10/2024 HGBA1C 9.5 (A) 01/14/2024 Lab Results Component Value Date EGFR >90.0 11/19/2023 TSH 1.36 06/10/2024 TRIG 130 06/10/2024 LDLCALC 64 06/10/2024 DM2 Diabetes is: improving Glycemic Target: 7% Recommendations: Mounjaro 5mg weekly; continue; consider dose increased after re-eval of GI AE Rosuvastatin 5mg daily started 06/2024 OV for risk reduction; continue *Metamucil OTC trial for GI AE *Taper insulin as able with Mounjaro optimization -Hypo: glucagon on hand -Meter/Supplies: on hand --> Labs to be done fasting prior to next visit; discussed holding supplements 5 days prior. 3 months --> BG monitoring: DD 2 weeks w/ update on GI AE Education: - Notification Parameters HTN PCP Managed Lozol BP stable --> Continue current therapy Obesity Body mass index is 37.08 kg/m?. Wt Readings from Last 3 Encounters: 09/22/24 183 lb 9.6 oz (83.3 kg) 06/18/24 183 lb 8 oz (83.2 kg) 03/18/24 183 lb 4.8 oz (83.1 kg) --> Continue to work on lifestyle changes: dietary habits; increasing activity as able, weight reduction --> Optimize DM agents to aid w/ the same. [x] Records from outside facility/PCP office to be requested. UACR results from [facility] [x] Scripts sent to pharmacy of choice. No follow-ups on file. Diagnostic Data Reviewed Today: CGM AGP Reviewed: Yes Subjective HPI PCP: Ion Williamson DO DSME: 01/14/2024-Johnna; general ed Since RANDY: RANDY 06/2024 w/ me Insulin DC ~08/21/2024 re: improved trends TIR 70s per pt Still following w/ RD in [place] Hospitalizations/Surge weston: Denies Medication Cost Concerns: Denies Missed Medication Doses: Denies Medication Side Effect: Endorses- some constipation w/ Mounjaro; alleviated w/ prunes Recent Steroid use: Endorses Recent Weight Changes: Denies- stable 183 Exercise Patterns: ADLs. Wheelchair-bound. Dietary Patterns: when out of school: 6-10am/130p/7pm; in school schedule: 5a//7p Employment/Lifestyle Patterns/Schedule Alterations: Works at [employer]. 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 History of Type 2 Diabetes Age at Onset: 56 yo Circumstances surrounding dx: polyuria--> screening Previous hospitalizations for DM: Endorses-11/2023 hyperglycemia s/p BL salpingoophorectomy Family hx DM: Endorses-Maternal Grandmother Family hx thyroid disease/thyroid cancer: Denies Current Medication Regimen: Mounjaro 5mg weekly Rosuvastatin 5mg daily started 06/2024 OV for risk reduction Previously Used DM Agents: Metformin: diarrhea Glimepiride: DC by IP service Novolog: DOUG 01/2024 re: improved trends; DC again 03/18/2024 OV Ozempic: DC 06/2024 OV in favor of Mounjaro Basaglar: DOUG 08/2024 re: improved trends Injection Sites/Rotation: rotates; has help administering from friend; pt self admin at work legs OTC Supplement Usage: Endorses-vitamin C intermittently Glucose Monitoring CGM use: Yes-Dexcom G7 w/ phone BG Monitoring: one touch verio on hand Recent Hypoglycemia: Denies Hypoglycemic Treatment Plan: glucagon and glucose tabs BG Trends: TIR 73%; post meal elevation present Trend Review: Complication History Retinopathy: Denies - Last Dilated Eye Exam: 04/10/24; Dr Ornelas ([facility]) Neuropathy: Denies - Last DMFE: 01/14/2024. Community Service Representative: ALISSON HTN: Endorses HLD: Denies- statin started 06/18/2024 for risk reduction Renal: Denies Cardiac: Denies CVA: Endorses-1x as child JAZMINE: Denies Gastroparesis: Denies H/o Pancreatitis: Denies Impaired Wound Healing: Denies Amputation: Denies Metabolic Dysfunction Associated Steatotic Liver Disease: Endorses Hypoglycemic Unawareness: Denies Cerebral Palsy Review of Systems ROS was performed at the time of this encounter. Unless noted above in the HPI, the ROS is negative. Allergies Allergen React (more content not included)... [facility] 09-14-2024 36 Left voicemail relaying the message from Saul. [facility] 36 1 year supply sent 4 days ago Please make pt aware she needs to request from pharmacy not our office [facility] 09-07-2024 36 Called pharmacy and there is still refills on file [facility] 06-18-2024 29 Addended by: SAUL ARMIJO on: 06/18/2024 12:10 PM Modules accepted: Orders [facility] 06-18-2024 36 Pt arrived late to appt will still need assessed please [facility] 36 Name of Caller: Rossana contreras Contact Reason for Appointment: Pt has an appt at 8 am and is stuck in traffic. Pt stated she should be there right around 8. Please advise Office Name: endo Medication Refills need, if any: na Medication Name: na [facility] 06-18-2024 37 *Please arrive 15 minutes prior to your scheduled appointment to ensure we have adequate time together at each visit to address all your health needs *It is recommended that you schedule your follow up appointments well in advance as the schedule fills up quickly *Bring your glucometer, blood sugar logs or CGM if being seen for diabetic care to ensure your trends can be thoroughly evaluated *Ordered labs should be done at least a week prior to your next scheduled appointment, fasting unless instructed otherwise *Due to possible lab interference, please hold any biotin-containing supplements including multivitamins or other over the counter supplements for at least 5 days prior to your labs being done. *Should you have any questions or concerns regarding your plan of shoaib, please send me a message via [employer] or call [phone] so we can address your needs *Please notify at appointments of any refill needs. Should you require refills prior to your next appointment, please notify the office at least a week prior to your last dose to allow adequate time for review and authorization if required. To Do List: 3 weeks after start Mounjaro; message me for dexcom download Start rosuvastatin once daily Talk to PCP about potassium Bring medication bottles to next visit - Your A1c goal is 7% - Work on lifestyle modifications of diet and exercise to assist with improving diabetic control - Check your feet daily for optimal foot care- follow with podiatry if needed - Continue following with ophthalmology every year for your dilated eye exam - Please take your medication as prescribed. If you encounter issues with side effects, glucose control, or cost please let me know - Uncontrolled diabetes has effects on multiple organ systems. Keeping your trends at goal and with limited variability will help to reduce your risk for future complications such as heart disease, chronic kidney disease, nerve damage (neuropathy), and other problems with your feet, oral health, vision, hearing, and mental health. - Be mindful of symptoms of both hypoglycemia (<70) and hyperglycemia (>250) and notify me if you are seeing trends outside these parameters consistently so we can adjust your plan of care. Normal [facility] Office Visiton 06-18-2024 Follow-up visit [id number] Taylor Wesley 1965 F Date Provider Department Center 06/18/2024 [id number] ARMIJO [facility] None Family History Problem Relation Age of Onset Breast cancer Mother Diabetes Maternal Grandmother Family Status - Relation Status Age at Mother Maternal Grandmother Level of Service:33945 DE OFFICE/OUTPATIENT ESTABLISHED MOD MDM 30 MIN Reason for Visit and Comments: Diabetes [34] Normal [facility] Progress Noteon 06-18-2024 Progress Note Result entered Normal [facility] Progress Note [facility] [address] [address] Dept: [phone] Dept Loc: [phone] Visit type: Established Patient Reason for Visit: Diabetes Assessment and Plan 1. Type 2 diabetes mellitus with hyperglycemia, with long-term current use of insulin (HCC) - Tirzepatide (Mounjaro) 5 MG/0.5ML solution auto-injector; Inject 5 mg under the skin 1 (one) time per week., Starting Sat06/18/2024, Until Sat06/18/2025, Normal - rosuvastatin (Crestor) 5 MG tablet; Take 1 tablet (5 mg) by mouth Nightly., Starting Sat06/18/2024, Until Sat06/18/2025, Normal - Continuous Glucose Sensor (Dexcom G7 Sensor) misc; Use every 10 days, Normal - Basaglar KwikPen 100 UNIT/ML pen; Inject 12 Units under the skin every morning., Starting Sat06/18/2024, Until Sat06/18/2025, Normal 2. Hypertension associated with type 2 diabetes mellitus (HCC) 3. Class 2 severe obesity with serious comorbidity and body mass index (BMI) of 37.0 to 37.9 in adult, unspecified obesity type (HCC) Lab Results Component Value Date HGBA1C 6.2 (A) 06/10/2024 HGBA1C 9.5 (A) 01/14/2024 HGBA1C 10.4 (H) 11/19/2023 Lab Results Component Value Date EGFR >90.0 11/19/2023 TSH 1.36 06/10/2024 TRIG 130 06/10/2024 LDLCALC 64 06/10/2024 DM2 Diabetes is: improving Glycemic Target: 7% Recommendations: Basaglar 16 units QAM--> 12 units QAM Ozempic 2mg weekly--> Mounjaro 5mg weekly *Taper insulin as able with Mounjaro optimization -Hypo: glucagon on hand -Meter/Supplies: on hand --> Labs to be done fasting prior to next visit; discussed holding supplements 5 days prior. UTD; POC A1c NOV --> BG monitoring: DD ~4 weeks; message/call for the same --> Statin: 06/2024: LDL 64; start rosuvastatin 5mg daily for risk reduction --> Talk to PCP about potassium replacement/adjustment Education: - Notification Parameters - ASCVD risk; indications for statin HTN PCP Managed Lozol BP stable --> Continue current therapy Obesity Body mass index is 37.06 kg/m?. Wt Readings from Last 3 Encounters: 06/18/24 183 lb 8 oz (83.2 kg) 03/18/24 183 lb 4.8 oz (83.1 kg) 01/14/24 182 lb 14.4 oz (83 kg) --> Continue to work on lifestyle changes: dietary habits; increasing activity as able, weight reduction --> Optimize DM agents to aid w/ the same. [] Records from outside facility/PCP office to be requested. [x] Scripts sent to pharmacy of choice. No follow-ups on file. Diagnostic Data Reviewed Today: CGM AGP Reviewed: Yes Subjective HPI PCP: Ion Williamson DO DSME: 01/14/2024-Johnna; general ed Since RANDY: RANDY 03/2024 w/ me Labs noted in Media from June 2024 No SE w/ Ozempic Hospitalizations/Surge weston: Denies Medication Cost Concerns: Denies Missed Medication Doses: Denies Medication Side Effect: Denies Recent Steroid use: Denies Recent Weight Changes: Denies-183; wt stable Exercise Patterns: ADLs. Wheelchair-bound. Dietary Patterns: Tidac. Has seen dietitian in the past. Working on better choices, higher protein Employment/Lifestyle Patterns/Schedule Alterations: Works at [employer]. 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 History of Type 2 Diabetes Age at Onset: 56 yo Circumstances surrounding dx: polyuria--> screening Previous hospitalizations for DM: Endorses-11/2023 hyperglycemia s/p BL salpingoophorectomy Family hx DM: Endorses-Maternal Grandmother Family hx thyroid disease/thyroid cancer: Denies Current Medication Regimen: Basaglar 16 units QAM Ozempic 2mg weekly Previously Used DM Agents: Metformin: diarrhea Glimepiride: DC by IP service Novolog: DC 01/2024 re: improved trends; DC again 03/18/2024 OV Injection Sites/Rotation: rotates; has help administering from friend; pt self admin at work legs OTC Supplement Usage: Endorses-vitamin C intermittently Glucose Monitoring CGM use: Yes-Dexcom G7 w/ phone BG Monitoring: one touch verio on hand Recent Hypoglycemia: Few related to missed meals Hypoglycemic Treatment Plan: glucagon and glucose tabs BG Trends: TIR 82%; no low reoccurrence Trend Review: Complication History Retinopathy: Denies - Last Dilated Eye Exam: scheduled 04/10/24; Dr Ornelas ([facility]) Neuropathy: Denies - Last DMFE: 01/14/2024. Community Service Representative: ALISSON HTN: Endorses HLD: Denies- statin started 06/18/2024 for risk reduction Renal: Denies Cardiac: Denies CVA: Endorses-1x as child JAZMINE: Denies Gastroparesis: Denies H/o Pancreatitis: Denies Impaired Wound Healing: Denies Amputation: Denies Metabolic Dysfunction Associated Steatotic Liver Disease: Endorses Hypoglycemic Unawareness: Denies Cerebral Palsy Review of Systems ROS was performed at the time of this encounter. Unless noted above in the HPI, the ROS is negative. Allergies Allergen Reactions Amoxicillin Other Reaction(s): GI Upset, Nausea Other Reaction(s): Nausea Outpatient Medic (more content not included)... Normal [facility] Albumin DL <= 20 mg/L (U) [M ass/Vol]on 06-11-2024 Urine Random Microalbumin < 12.0 mg/L NO RANGE EST. [facility] Creatinine Unsp time (U) [Ma ss/Vol]on 06-11-2024 Creatinine (U) [Mass/Vol] 49.00 mg/dL 28.00-217 .00 [facility] Microalb:Creat Ratio,Random URon 06-11-2024 Creatinine [Mass/Vol] 49.00 mg/dL Normal 28.00-217.00 [facility] Comment on above: Performed By: #### L 502.0250 #### [facility] [address] [place], [address] MALB:CREAT UNABLE TO CALCULATE Normal [facility] Comment on above: Performed By: #### L 502.0250 #### [facility] [address] [place], [place], [id number] MICROALBUMIN,UR < 12.0 Normal NO RANGE EST. [facility] Comment on above: Performed By: #### L 502.0250 #### [facility] [address] [place], [place], [id number] Microalbumin/creat ratio uro n 06-11-2024 Urine Microalbumin/Creatinine Ratio UNABLE TO CALCULATE mg/g CRE [facility] Urine microalbumin/creatinine ratio measurement UNABLE TO CALCULATE mg/g CRE [facility] Random urine creatinine aj urement (mass/volume)on 06-11-2024 Creatinine Unsp time (U) [Mass/Vol] 49.00 mg/dL 28.00-217.00 [facility] Urine albumin measurement [facility] detection limit of 20 mg/L or less (mass/volume)on 06-11-2024 Albumin DL <= 20 mg/L (U) [Mass/Vol] < 12.0 mg/L NO RANGE EST. [facility] 36on 06-10-2024 36 Per Saul's note, patient is due for fasting labs prior to next visit. I do not see where she is to hold her insulin. I do see where she is supposed to hold any [id number] supplements she may be on 5 days prior to her labs as this can lead to some of the results. Normal [facility] Anion gap in Serum or Plasma on 06-10-2024 Anion gap [Moles/Vol] 12 mmol/L 5-15 [facility] BUN/creatinine ratioon 06-10 Urea nitrogen/Creatinine [Mass ratio] 26.3 mg/mg High 10-20 [facility] Bilirubin, totalon Bilirubin [Mass/Vol] 0.62 mg/dL 0.00-1.30 [facility] Calculated very low density lipoprotein (VLDL) cholesterol measurementon 06-10-2024 Calculated very low density lipoprotein (VLDL) cholesterol measurement 26 mg/dL 5-40 [facility] VLDL Cholesterol 26 mg/dL 5-40 [facility] Carbon dioxide, total [Moles /volume] in Central venous bloodon 06-10-2024 CO2 [Moles/Vol] 26.6 mmol/L 21.0-32.0 [facility] Chloride assayon 06-10-2024 Chloride [Moles/Vol] 100 mmol/L 98-108 [facility] Comprehensive Metabolic Prof ilon 06-10-2024 Albumin [Mass/Vol] 3.9 g/dL Normal 3.5-5.0 [facility] Comment on above: Order Comment: A Performed By: #### L 502.0250, L501.9520, L500.4100, L506.0400, L500.4050, L501.9985 #### [facility] [address] [place], [address] Albumin/Globulin [Mass ratio] 1.0 {ratio} Normal 0.9-2.4 [facility] Comment on above: Order Comment: A Performed By: #### L 502.0250, L501.9520, L500.4100, L506.0400, L500.4050, L501.9985 #### [facility] [address] [place], [address] ALK PHOS 82 U/L Normal 35-104 [facility] Comment on above: Order Comment: A Performed By: #### L 502.0250, [id number], L500.4100, L506.0400, L500.4050, L501.9985 #### [facility] [address] [place], [address] ALT [Catalytic activity/Vol] 30 U/L Normal <=34 [facility] Comment on above: Order Comment: A Performed By: #### L 502.0250, L501.9520, L500.4100, L506.0400, L500.4050, L501.9985 #### [facility] [address] [place], [address] AST [Catalytic activity/Vol] 30 U/L Normal <=31 [facility] Comment on above: Order Comment: A Performed By: #### L 502.0250, L501.9520, L500.4100, L506.0400, L500.4050, L501.9985 #### [facility] [address] [place], [address] Bilirubin [Mass/Vol] 0.62 mg/dL Normal 0.00-1.30 [facility] Comment on above: Order Comment: A Performed By: #### L 502.0250, L501.9520, L500.4100, L506.0400, L500.4050, L501.9985 #### [facility] [address] [place], [address] BUN/CRE 26.3 RATIO High 10-20 [facility] Comment on above: Order Comment: A Performed By: #### L 502.0250, L501.9520, L500.4100, L506.0400, L500.4050, L501.9985 #### [facility] [address] [place], [address] Calcium [Mass/Vol] 10.1 mg/dL Normal 7.6-11.0 [facility] Comment on above: Order Comment: A Performed By: #### L 502.0250, L501.9520, L500.4100, L506.0400, L500.4050, L501.9985 #### [facility] [address] [place], [address] Chloride [Moles/Vol] 100 mmol/L Normal 98-108 [facility] Comment on above: Order Comment: A Performed By: #### L 502.0250, L501.9520, L500.4100, L506.0400, L500.4050, L501.9985 #### [facility] [address] [place], [address] CO2 [Moles/Vol] 26.6 mmol/L Normal 21.0-32.0 [facility] Comment on above: Order Comment: A Performed By: #### L 502.0250, L501.9520, L500.4100, L506.0400, L500.4050, L501.9985 #### [facility] [address] [place], [address] Creatinine [Mass/Vol] 0.39 mg/dL Low 0.70-1.20 [facility] Comment on above: Order Comment: A Performed By: #### L 502.0250, L501.9520, L500.4100, L506.0400, L500.4050, L501.9985 #### [facility] [address] [place], [place], [id number] (047) GAP 12 Normal 5-15 [facility] Comment on above: Order Comment: A Performed By: #### L 502.0250, L501.9520, L500.4100, L506.0400, L500.4050, L501.9985 #### [facility] [address] [place], [place], [id number] (168 GFR/1.73 sq M.predicted among non-blacks MDRD (S/P/Bld) [Vol rate/Area] 115 mL/min/{1.73_m2} Normal >60 [facility] Comment on above: Order Comment: A Result Comment: mL/m in/1.73m2 CKD-EPI Creatinine Equation (2020) Performed By: #### L 502.0250, L501.9520, L500.4100, L506.0400, L500.4050, L501.9985 #### [facility] [address] [place], [address] Globulin (S) [Mass/Vol] 3.8 g/dL Normal 2.2-4.2 [facility] Comment on above: Order Comment: A Performed By: #### L 502.0250, L501.9520, L500.4100, L506.0400, L500.4050, L501.9985 #### [facility] [address] [place], [address] Glucose [Mass/Vol] 106 mg/dL High 70-99 [facility] Comment on above: Order Comment: A Performed By: #### L 502.0250, L501.9520, L500.4100, L506.0400, L500.4050, L501.9985 #### [facility] [address] [place], [address] Potassium [Moles/Vol] 3.2 mmol/L Low 3.3-5.1 [facility] Comment on above: Order Comment: A Performed By: #### L 502.0250, L501.9520, L500.4100, L506.0400, L500.4050, L501.9985 #### [facility] [address] [place], [address] Sodium [Moles/Vol] 138 mmol/L Normal 133-145 [facility] Comment on above: Order Comment: A Performed By: #### L 502.0250, L501.9520, L500.4100, L506.0400, L500.4050, L501.9985 #### [facility] [address] [place], [address] T PROT 7.7 g/dL Normal 5.9-8.4 [facility] Comment on above: Order Comment: A Performed By: #### L 502.0250, L501.9520, L500.4100, L506.0400, L500.4050, L501.9985 #### [facility] [address] [place], [address] Urea nitrogen [Mass/Vol] 10 mg/dL Normal 4-19 [facility] Comment on above: Order Comment: A Performed By: #### L 502.0250, L501.9520, L500.4100, L506.0400, L500.4050, L501.9985 #### [facility] [address] [place], [place], [id number] (357) GFR/1.73 sq M.predicted shanice g non-blacks MDRD (S/P/Bld) [Vol rate/Area]on 06-10-2024 Estimated GFR (MDRD) Non-Af Amer 115 >60 [facility] Comment on above: mL/min/1.73m2 CKD-EP I Creatinine Equation (2020) Glomerular filtration rate ( GFR) estimation/1.73 sq m using serum, plasma, or whole bon 06-10-2024 GFR/1.73 sq M.predicted among non-blacks MDRD (S/P/Bld) [Vol rate/Area] 115 mL/min/{1.73_m2} >60 [facility] Comment on above: mL/min/1.73m2 CKD-EP I Creatinine Equation (2020) Hemoglobin A1con 06-10-2024 HbA1c (Bld) [Mass fraction] 6.2 % Normal <=5.6 [facility] Comment on above: Performed By: #### L 502.0250, L501.9520, L500.4100, L506.0400, L500.4050, L501.9985 #### [facility] [address] [place], [address] Hemoglobin A1c percentageon 06-10-2024 HbA1c (Bld) [Mass fraction] 6.2 % >5.7 [facility] LDL calc ser/plason 06-11-19 25 Cholesterol in LDL [Mass/Vol] 64 mg/dL [facility] Comment on above: Sktsjlcvwe=071-835 m g/dL & Higher Ryvq=163 mg/dL or greater LDL Cholesterol, Calculated 64 mg/dL [facility] Comment on above: Rslpaxoqje=407-383 m g/dL & Higher Hyop=206 mg/dL or greater Laboratory - Chemistry and C hemistry - challengeon 06-10-2024 AST [Catalytic activity/Vol] 30 U/L <32 [facility] Lipid Profileon 06-10-2024 CHOL:HDL 3.25 Normal [facility] Comment on above: Performed By: #### L 500.4050, L501.9985, L502.0250, L500.4100, L100.0100 #### [facility] [address] [place], [address] Cholesterol [Mass/Vol] 130 mg/dL Normal <=200 [place] Comment on above: Result Comment: Chol esterol level, Desirable <200 mg/dL Borderline high cholesterol 200-239 mg/dL High cholesterol >=240 mg/dL Recommendations of the NCEP Adult Treatment Panel for the following risk-cutoff thresholds for the [place] population. Performed By: #### L 500.4050, L501.9985, L502.0250, L500.4100, L100.0100 #### [facility] [address] [place], [address] Cholesterol in HDL [Mass/Vol] 40 mg/dL Normal [facility] Comment on above: Result Comment: Kelly onal Cholesterol Education Program (NCEP) guidelines: <40 mg/dL: Low HDL-cholesterol (major risk factor for CHD) >= 60 mg/dL: High HDL-cholesterol (negative risk factor for CHD) HDL-cholesterol is affected by a number of factors, e.g. smoking, exercise, hormones, sex and age. Performed By: #### L 500.4050, L501.9985, L502.0250, L500.4100, L100.0100 #### [facility] [address] [place], [address] Cholesterol in LDL [Mass/Vol] 64 mg/dL Normal [facility] Comment on above: Result Comment: Bord muikah=081-001 mg/dL Higher Cnpf=229 mg/dL or greater Performed By: #### L 500.4050, L501.9985, L502.0250, L500.4100, L100.0100 #### [facility] [address] [place], [address] Cholesterol in VLDL [Mass/Vol] 26 mg/dL Normal 5-40 [facility] Comment on above: Performed By: #### L 500.4050, L501.9985, L502.0250, L500.4100, L100.0100 #### [facility] [address] [place], [address] Triglyceride [Mass/Vol] 131 mg/dL Normal [facility] Comment on above: Result Comment: The drugs N-Acetylcysteine and Metamizole may falsely depress this assay. Normal range: <150 mg/dL Borderline High: 150-199 mg/dL High: 200-499 mg/dL Very High: >500 mg/dL Performed By: #### L 500.4050, L501.9985, L502.0250, L500.4100, L100.0100 #### [facility] [address] [place], [address] Microalb:Creat Ratio,Random URon 06-10-2024 MALB:CREAT Normal [facility] Comment on above: Result Comment: UTO BRINGING BACK Performed By: #### L 502.0250, L501.9520, L500.4100, L506.0400, L500.4050, L501.9985 #### [facility] [address] [place], [address] MICROALBUMIN,UR Normal NO RANGE EST. [facility] Comment on above: Result Comment: UTO BRINGING BACK Performed By: #### L 502.0250, L501.9520, L500.4100, L506.0400, L500.4050, L501.9985 #### [facility] [address] [place], [address] UR CREAT Normal 28.00-217.00 [facility] Comment on above: Result Comment: UTO BRINGING BACK Performed By: #### L 502.0250, L501.9520, L500.4100, L506.0400, L500.4050, L501.9985 #### [facility] [address] [place], [address] Potassium (Unsp spec) [Mass/ Vol]on 06-10-2024 Potassium [Moles/Vol] 3.2 mmol/L Low 3.3-5.1 [facility] Potassium measurement (mass/ volume)on 06-10-2024 Potassium (Unsp spec) [Mass/Vol] 3.2 mmol/L Low 3.3-5.1 [facility] Screening total cholesterol/ high density lipoprotein (HDL) cholesterol ratioon 06-10-2024 Cholesterol.total/Cholest rubi in HDL [Mass ratio] 3.25 {ratio} [facility] Serum creatinine measurement (mass/volume)on 06-10-2024 Creatinine [Mass/Vol] 0.39 mg/dL Low 0.70-1.20 [facility] Serum globulin measurementon 06-10-2024 Globulin (S) [Mass/Vol] 3.8 g/dL 2.2-4.2 [facility] Serum glucose measurement (m ass/volume)on 06-10-2024 Glucose [Mass/Vol] 106 mg/dL High 70-99 [facility] Serum or plasma alanine apodaca otransferase (ALT) measurementon 06-10-2024 ALT [Catalytic activity/Vol] 30 U/L <35 [facility] Serum or plasma albumin aj urement (mass/volume)on 06-10-2024 Albumin [Mass/Vol] 3.9 g/dL 3.5-5.0 [facility] Serum or plasma albumin/glob ulin mass ratioon 06-10-2024 Albumin/Globulin [Mass ratio] 1.0 {ratio} 0.9-2.4 [facility] Serum or plasma alkaline jami sphatase measurementon 06-10-2024 ALP [Catalytic activity/Vol] 82 U/L 35-104 [facility] Serum or plasma calcium aj urement (mass/volume)on 06-10-2024 Calcium [Mass/Vol] 10.1 mg/dL 7.6-11.0 [facility] Serum or plasma cholesterol in HDL measurement (mass/volume)on 06-10-2024 Cholesterol in HDL [Mass/Vol] 40 mg/dL >40 [facility] Comment on above: National Cholesterol Education Program (NCEP) guidelines:<40 mg/dL: Low HDL-cholesterol (major risk factor for CHD)>= 60 mg/dL: High HDL-cholesterol (negative risk factor for CHD)HDL-cholesterol is affected by a number of factors, e.g. smoking, exercise, hormones, sex and age. Serum or plasma cholesterol measurement (mass/volume)on 06-10-2024 Cholesterol [Mass/Vol] 130 mg/dL <201 [place] Comment on above: Cholesterol level, D esirable <200 mg/dLBorderline high cholesterol 200-239 mg/dLHigh cholesterol >=240 mg/dLRecommendations of the NCEP Adult Treatment Panel for the following risk-cutoff thresholds for the [place] population. Serum or plasma urea nitroge n measurement (mass/volume)on 06-10-2024 Urea nitrogen [Mass/Vol] 10 mg/dL - [facility] Sodium levelon 06-10-2024 Sodium [Moles/Vol] 138 mmol/L 133-145 [facility] T4 Free Directon 06-10-2024 T4 FREE DIRECT 1.10 ng/dL Normal 0.76-1.46 [facility] Comment on above: Order Comment: A Performed By: #### L 500.4050, L501.9985, L502.0250, L500.4100, L100.0100 #### [facility] Laboratory [facility] [place] [address], [address] T4 freeon 06-10-2024 Free T4 [Mass/Vol] 1.10 ng/dL 0.76-1.46 [facility] TSH DL <= 0.005 mIU/L Qnon 0 06-10-2024 Thyroid Stimulating Hormone (TSH) 1.360 uIU/mL 0.300-4.200 [facility] TSH Qn 1.360 uIU/mL 0.300-4.200 [facility] Thyroid Stim Hormone (TSH)on 06-10-2024 TSH 1.360 uIU/mL Normal 0.300-4.200 [facility] Comment on above: Performed By: #### L 500.4050, L501.9985, L502.0250, L500.4100, L100.0100 #### [facility] Laboratory [address] [place], [address] Total proteinon 06-10-2024 Protein [Mass/Vol] 7.7 g/dL 5.9-8.4 [facility] Triglycerides measurementon 06-10-2024 Triglyceride [Mass/Vol] 131 mg/dL <199 [facility] Comment on above: The drugs N-Acetylcy steine and Metamizole may falsely depress this assay. Normal range: <150 mg/dLBorderline High: 150-199 mg/dLHigh: 200-499 mg/dLVery High: >500 mg/dL 36on 06-09-2024 36 Name of caller: Rossana contreras Contact phone number: [phone] Relationship to Patient: patient Provider: Demetrice Armijo Practice: Endocrinology Chief Complaint/Reason for Call: Taylor called advising is she should stop taking her insulin before doing her labs. Patient advised she would like more clarifications when doing her labs. Please call patient back and advise. Best time of day caller can be reached: Patient advised that office/PCP has 24-48 business hours to return their call: Yes [facility] 05-07-2024 36 Dexcom downloaded to social media community manager [place] [id number] Please download dexcom 36 Patient called to request another download from her Dexcom. Please advise. [facility] 04-23-2024 36 Called and released msg to pt. [place] [id number] Basaglar to 16 units Message/call DD 2 weeks [facility] 04-22-2024 36 Dexcom downloaded an d saved in Material Handler Floorperson [facility] 36 Please download dexc om and sent it to provider [place] 0919604-21-2024 36 Name of caller: Rossana contreras Contact phone number: [phone] Relationship to Patient: patient Provider: BARBARA Cohen CNP Practice: [facility] Chief Complaint/Reason for Call: Taylor is requesting a call back to discuss her most recent Dexcom report. Please contact Taylor and advise. Best time of day caller can be reached: Any Patient advised that office/PCP has 24-48 business hours to return their call: Yes Normal [facility] 37on 03-18-2024 37 *Please arrive 15 minutes prior to your scheduled appointment to ensure we have adequate time together at each visit to address all your health needs *It is recommended that you schedule your follow up appointments well in advance as the schedule fills up quickly *Bring your glucometer, blood sugar logs or CGM if being seen for diabetic care to ensure your trends can be thoroughly evaluated *Ordered labs should be done at least a week prior to your next scheduled appointment, fasting unless instructed otherwise *Due to possible lab interference, please hold any biotin-containing supplements including multivitamins or other over the counter supplements for at least 5 days prior to your labs being done. *Should you have any questions or concerns regarding your plan of shoaib, please send me a message via [employer] or call [phone] so we can address your needs *Please notify at appointments of any refill needs. Should you require refills prior to your next appointment, please notify the office at least a week prior to your last dose to allow adequate time for review and authorization if required. To Do List: STOP NOVOLOG Do labs prior to next office visit; fasting Keep scheduled Eye Exam Have Eye doctor send copy of eye exam - Test your blood sugar 4 times daily via glucometer (or by continuous glucose monitor) and send message/readings to office in 3-4 weeks for review. Sooner if issues arise. - Your A1c goal is 7% - Work on lifestyle modifications of diet and exercise to assist with improving diabetic control - Check your feet daily for optimal foot care- follow with podiatry if needed - Continue following with ophthalmology every year for your dilated eye exam - Please take your medication as prescribed. If you encounter issues with side effects, glucose control, or cost please let me know - Uncontrolled diabetes has effects on multiple organ systems. Keeping your trends at goal and with limited variability will help to reduce your risk for future complications such as heart disease, chronic kidney disease, nerve damage (neuropathy), and other problems with your feet, oral health, vision, hearing, and mental health. - Be mindful of symptoms of both hypoglycemia (<70) and hyperglycemia (>250) and notify me if you are seeing trends outside these parameters consistently so we can adjust your plan of care. Normal [facility] Office Visiton 03-18-2024 Follow-up visit [id number] Taylor Wesley 1965 F Date Provider Department Center 03/18/2024 [id number] ARMIJO [facility] None Family History Problem Relation Age of Onset Breast cancer Mother Diabetes Maternal Grandmother Family Status - Relation Status Age at Mother Maternal Grandmother Level of Service:69651 DE OFFICE/OUTPATIENT ESTABLISHED MOD MDM 30 MIN Reason for Visit and Comments: Diabetes Mellitus [183] Normal [facility] Progress Noteon 03-18-2024 Progress Note [facility] [address] [place] [address] Dept: [phone] Dept Loc: [phone] Visit type: Established Patient Reason for Visit: Diabetes Mellitus Assessment and Plan 1. Type 2 diabetes mellitus with hyperglycemia, with long-term current use of insulin (HCC) - Basaglar KwikPen 100 UNIT/ML pen; Inject 24 Units under the skin every morning., Starting Sat03/18/2024, Until Franny 03/18/2025, Normal - Semaglutide, 2 MG/DOSE, (Ozempic, 2 MG/DOSE,) 8 MG/3ML solution pen-injector; Inject 2 mg under the skin 1 (one) time per week., Starting Sat03/18/2024, Normal 2. Essential (primary) hypertension 3. Class 2 severe obesity with serious comorbidity and body mass index (BMI) of 37.0 to 37.9 in adult, unspecified obesity type (HCC) Lab Results Component Value Date HGBA1C 9.5 (A) 01/14/2024 HGBA1C 10.4 (H) 11/19/2023 Lab Results Component Value Date EGFR >90.0 11/19/2023 DM2 Diabetes is: worsening Glycemic Target: 7% Recommendations: Basaglar 24 units QAM; continue; taper as able Novolog 6 units tidac- self restarted--> DC Ozempic 1mg weekly--> 2mg weekly -Hypo: glucagon on hand -Meter/Supplies: on hand --> Labs to be done fasting prior to next visit; discussed holding supplements 5 days prior. As ordered in January --> BG monitoring: DD 3-4 weeks; message/call for the same --> Statin: defer until lipid screened Education: - Notification Parameters -Importance of not self adjusting medications. Communication between visits with concerns regarding plan of care HTN PCP Managed Lozol BP stable --> Continue current therapy Obesity Body mass index is 37.02 kg/m?. Wt Readings from Last 3 Encounters: 03/18/24 183 lb 4.8 oz (83.1 kg) 01/14/24 182 lb 14.4 oz (83 kg) 11/19/23 192 lb 9.6 oz (87.4 kg) --> Continue to work on lifestyle changes: dietary habits; increasing activity as able, weight reduction --> Optimize DM agents to aid w/ the same. [] Records from outside facility/PCP office to be requested. [x] Scripts sent to pharmacy of choice. No follow-ups on file. Diagnostic Data Reviewed Today: CGM AGP Reviewed: Yes Subjective HPI PCP: Ion Williamson DO DSME: 01/14/2024-Johnna; general ed Since RANDY: Self adjusting insulin Self restarted Novolog Taking higher doses of Basaglar at times Doing well with Ozempic. No side effects Hospitalizations/Surge weston: Denies Medication Cost Concerns: Denies Missed Medication Doses: Denies Medication Side Effect: Denies Recent Steroid use: Denies Recent Weight Changes: Denies- 183 today Exercise Patterns: ADLs. Wheelchair-bound. Dietary Patterns: Tidac. Has seen dietitian in the past. Working on better choices, higher protein Employment/Lifestyle Patterns/Schedule Alterations: Works at [employer]. 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 History of Type 2 Diabetes Age at Onset: 56 yo Circumstances surrounding dx: polyuria--> screening Previous hospitalizations for DM: Endorses-11/2023 hyperglycemia s/p BL salpingoophorectomy Family hx DM: Endorses-Maternal Grandmother Family hx thyroid disease/thyroid cancer: Denies Current Medication Regimen: Basaglar 24 units QAM Novolog 6 units tidac- self restarted Ozempic 1mg weekly Previously Used DM Agents: Metformin: diarrhea Glimepiride: DC by IP service Novolog: DC 01/2024 re: improved trends; DC again 03/18/2024 OV Injection Sites/Rotation: rotates; has help administering from friend; pt self admin at work legs OTC Supplement Usage: Endorses-vitamin C intermittently Glucose Monitoring CGM use: Yes-Dexcom G7 w/ phone BG Monitoring: one touch verio on hand Recent Hypoglycemia: Few; educated prior on confirmation fingersticks. Hypoglycemic Treatment Plan: glucagon and glucose tabs BG Trends: TIR 93%; no lows on this download Trend Review: Complication History Retinopathy: Denies - Last Dilated Eye Exam: scheduled 04/10/24; Dr Ornelas ([facility]) Neuropathy: Denies - Last DMFE: 01/14/2024. Community Service Representative: ALISSON HTN: Endorses HLD: Denies Renal: Denies Cardiac: Denies CVA: Endorses-1x as child JAZMINE: Denies Gastroparesis: Denies H/o Pancreatitis: Denies Impaired Wound Healing: Denies Amputation: Denies Metabolic Dysfunction Associated Steatotic Liver Disease: Endorses Hypoglycemic Unawareness: Denies Cerebral Palsy Review of Systems ROS was performed at the time of this encounter. Unless noted above in the HPI, the ROS is negative. Allergies Allergen Reactions Amoxicillin Other Reaction(s): GI Upset, Nausea Other Reaction(s): Nausea Outpatient Medications Prior to Visit Medication Sig Dispense Refill acetaminophen (Tylenol) 325 MG suppository Insert into the rectum. albuterol 108 (90 Base) MCG/ACT inhaler Inhale 2 puffs every 6 hours as needed for wheezing. Alcohol Swabs pads Use as dir (more content not included)... Normal [facility] Basic Metabolic Profile (BMP )on 03-09-2024 BUN/CRE 45.1 RATIO High 10-20 [facility] Comment on above: Performed By: #### L 500.2500 #### [facility] Laboratory [address] [place], [address] CA,Total 10.0 mg/dL Normal 8.5-10.1 [facility] Comment on above: Performed By: #### L 500.2500 #### [facility] [address] [place], [address] Chloride [Moles/Vol] 104 mmol/L Normal 98-107 [facility] Comment on above: Performed By: #### L 500.2500 #### [facility] [address] [place], [address] CO2 [Moles/Vol] 29.0 mmol/L Normal 21.0-32.0 [facility] Comment on above: Performed By: #### L 500.2500 #### [facility] [address] [place], [address] Creatinine [Mass/Vol] 0.42 mg/dL Low 0.55-1.02 [facility] Comment on above: Result Comment: The validity of the calculated GFR GFRAA in patients over 70 years has not been determined. Clinical correlation is essential. Performed By: #### L 500.2500 #### [facility] [address] [place], [address] EST GFR - AA 199 mL/min Normal >60 [facility] Comment on above: Result Comment: Afri can [place] GFR Calc Performed By: #### L 500.2500 #### [facility] [address] [place], [address] GAP 5 Normal 5-15 [facility] Comment on above: Performed By: #### L 500.2500 #### [facility] [address] [place], [address] GFR/1.73 sq M.predicted among non-blacks MDRD (S/P/Bld) [Vol rate/Area] 164 mL/min/{1.73_m2} Normal >60 [facility] Comment on above: Result Comment: Non- GFR Calc Performed By: #### L 500.2500 #### [facility] [address] [place], [address] Glucose [Mass/Vol] 124 mg/dL High 74-106 [facility] Comment on above: Result Comment: Fast ing Glucose result from 100 to 125 mg/dL suggests IMPAIRED HOMEOSTASIS per A.D.A. criteria. Performed By: #### L 500.2500 #### [facility] [address] [place], [address] Potassium [Moles/Vol] 3.6 mmol/L Normal 3.5-5.1 [facility] Comment on above: Performed By: #### L 500.2500 #### [facility] [address] [place], [address] Sodium [Moles/Vol] 138 mmol/L Normal 136-145 [facility] Comment on above: Performed By: #### L 500.2500 #### [facility] [address] [place], [address] Urea nitrogen [Mass/Vol] 19 mg/dL High 7-18 [facility] Comment on above: Performed By: #### L 500.2500 #### [facility] [address] [place], [address] Blood urea nitrogen (BUN)/cr eatinine ratioOrdered By: Yenni Williamson on 03-09-2024 Urea nitrogen/Creatinine [Mass ratio] 45.1 mg/mg High 10-20 [facility] Carbon dioxide measurementOr dered By: Yenni Williamson on 03-09-2024 CO2 [Moles/Vol] 29.0 mmol/L 21.0-32.0 [facility] Chloride measurementOrdered By: [facility] hospital[facility] Williamson on 03-09-2024 Chloride [Moles/Vol] 104 mmol/L 98-107 [facility] Estimated glomerular filtrat ion rate (GFR) AmericanOrdered By: Yenni Williamson on 03-09-2024 Estimated GFR (MDRD) Amer 199 mL/min >60 [facility] Comment on above: GFR Calc Glomerular filtration rate ( GFR) estimationOrdered By: Yenni Williamson on 03-09-2024 Estimated GFR (MDRD) Non-Af Amer 164 mL/min >60 [facility] Comment on above: Non- GFR Calc Glucose measurementOrdered B y: Yenni Williamson on 03-09-2024 Glucose [Mass/Vol] 124 mg/dL High 74-106 [facility] Comment on above: Fasting Glucose resu lt from 100 to 125 mg/dL suggests IMPAIRED HOMEOSTASIS per A.D.A. criteria. Potassium measurementOrdered By: Yenni Williamson on 03-09-2024 Potassium [Moles/Vol] 3.6 mmol/L 3.5-5.1 [facility] Serum anion gap measurementO rdered By: Yenni Williamson on 03-09-2024 Anion gap [Moles/Vol] 5 mmol/L 5-15 [facility] Serum or plasma calcium aj urement (mass/volume)Ordered By: [facility]ed [facility] on 03-09-2024 Calcium [Mass/Vol] 10.0 mg/dL 8.5-10.1 [facility] Serum or plasma creatinine m easurement (mass/volume)Ordered By: Yenni [facility] Hospit[facility]ad on 03-09-2024 Creatinine [Mass/Vol] 0.42 mg/dL Low 0.55-1.02 [facility] Comment on above: The validity of the calculated GFR & GFRAA in patients over 70 years has not been determined. Clinical correlation is essential. Serum or plasma urea nitroge n measurement (mass/volume)Ordered By: Yenni Williamson on 03-09-2024 Urea nitrogen [Mass/Vol] 19 mg/dL High 7-18 [facility] Sodium levelOrdered By: Valentino lu Cidlibertad on 03-09-2024 Sodium [Moles/Vol] 138 mmol/L 136-145 [facility] 36on 02-27-2024 36 Message released to patient as written. Patient's further questions if applicable: N/A Were all questions from office addressed or relayed to the patient from encounter: Yes Normal [facility] 36 LVM for patient to call the office. if patient return call please relay message per provider. Normal [facility] 36 No significant hyperglycemia on DD Recommend again she follow orders given then message for DD in 1-2 weeks If trends >250 notify sooner but none seen on 1 week adjusted download [facility] 36 Name of caller: Rossana contreras Contact phone number: [phone] Relationship to Patient: patient Provider: Aleksander FOFANA Practice: Endo Chief Complaint/Reason for Call: Taylor states that since you took her off the NOVOLOG last Saturday her numbers had started spiking up. So on Saturday she started back taking the NOVOLOG and her numbers came back down to what she's use too. Taylor is asking for you to look at her numbers and let her know what you think she should do moving forward. Best time of day caller can be reached: AM Patient advised that office/PCP has 24-48 business hours to return their call: Yes [facility] 36on 02-21-2024 36 Patient informed as noted No further questions. [facility] 36 Reviewed Time in range at goal Stop Novolog Decrease Basagalr to 20 units Remind about 1/8 appt; will pull DD again at that time Can notify sooner if needs review [facility] 36 Dexcom DL in media [facility] 36on 02-20-2024 36 Name of caller: Rossana contreras Contact phone number: [phone] Relationship to Patient: Patient Provider: JANNY Armijo Practice: endo Chief Complaint/Reason for Call: Patient is requesting her blood glucose log be pulled. She also stated that she re-calibrated her dexcom. Please advise. Best time of day caller can be reached: Any Patient advised that office/PCP has 24-48 business hours to return their call: Yes [facility] CBC W/Diff, Automatedon 11-2 Absolute Lymph 3.02 X10 3/uL Normal 0.83-4.51 [facility] Comment on above: Performed By: #### L 500.4050, L501.9985, L502.0250, L500.4100, L100.0100 #### [facility] [address] [place], [address] Absolute Neut 3.1 X10 3/uL Normal 2.0-7.7 [facility] Comment on above: Performed By: #### L 500.4050, L501.9985, L502.0250, L500.4100, L100.0100 #### [facility] [address] [place], [address] Basophils/100 WBC (Bld) 0.7 % Normal 0-1 [facility] Comment on above: Performed By: #### L 500.4050, L501.9985, L502.0250, L500.4100, L100.0100 #### [facility] [address] [place], [address] Eosinophils/100 WBC (Bld) 3.8 % Normal 0-5 [facility] Comment on above: Performed By: #### L 500.4050, L501.9985, L502.0250, L500.4100, L100.0100 #### [facility] [address] [place], [address] Erythrocyte distribution width (RBC) [Ratio] 12.7 % Normal 11.6-14.6 [facility] Comment on above: Performed By: #### L 500.4050, L501.9985, L502.0250, L500.4100, L100.0100 #### [facility] [address] [place], [address] Hematocrit (Bld) [Volume fraction] 39.9 % Normal 37-47 [facility] Comment on above: Performed By: #### L 500.4050, L501.9985, L502.0250, L500.4100, L100.0100 #### [facility] [address] [place], [address] Hemoglobin (Bld) [Mass/Vol] 12.9 g/dL Normal 12.0-15.0 [facility] Comment on above: Performed By: #### L 500.4050, L501.9985, L502.0250, L500.4100, L100.0100 #### [facility] [address] [place], [address] IG% 0.300 Normal 0.0-0.9 [facility] Comment on above: Result Comment: IG% - Immature Granulocytes (promyelocytes, myelocytes and metamyelocytes) > 1% indicates that a LEFT SHIFT is Present. Performed By: #### L 500.4050, L501.9985, L502.0250, L500.4100, L100.0100 #### [facility] [address] [place], [address] Lymphocytes/100 WBC (Bld) 42.7 % High 19-41 [facility] Comment on above: Performed By: #### L 500.4050, L501.9985, L502.0250, L500.4100, L100.0100 #### [facility] [address] [place], [address] MCH (RBC) [Entitic mass] 28.0 pg Normal 27.0-32.0 [facility] Comment on above: Performed By: #### L 500.4050, L501.9985, L502.0250, L500.4100, L100.0100 #### [facility] [address] [place], [address] MCHC (RBC) [Mass/Vol] 32.3 g/dL Normal 32-36 [facility] Comment on above: Performed By: #### L 500.4050, L501.9985, L502.0250, L500.4100, L100.0100 #### [facility] [address] [place], [address] MCV (RBC) [Entitic vol] 86.7 fL Normal 81-99 [facility] Comment on above: Performed By: #### L 500.4050, L501.9985, L502.0250, L500.4100, L100.0100 #### [facility] [address] [place], [address] Monocytes/100 WBC (Bld) 8.3 % Normal 0-10 [facility] [facility] Comment on above: Performed By: #### L 500.4050, L501.9985, L502.0250, L500.4100, L100.0100 #### [facility] [address] [place], [address] Neutrophils/100 WBC (Bld) 44.2 % Low 47-70 [facility] Comment on above: Performed By: #### L 500.4050, L501.9985, L502.0250, L500.4100, L100.0100 #### [facility] [address] [place], [address] Nucleated RBC (Bld) [#/Vol] 0 10*3/uL Normal 0-5 [facility] Comment on above: Performed By: #### L 500.4050, L501.9985, L502.0250, L500.4100, L100.0100 #### [facility] [address] [place], [address] Platelet mean volume (Bld) [Entitic vol] 10.3 fL Normal 6.2-12.0 [facility] Comment on above: Performed By: #### L 500.4050, L501.9985, L502.0250, L500.4100, L100.0100 #### [facility] [address] [place], [address] Platelets (Bld) [#/Vol] 388 10*3/uL Normal 150-450 [facility] Comment on above: Performed By: #### L 500.4050, L501.9985, L502.0250, L500.4100, L100.0100 #### [facility] [address] [place], [address] RBC (Bld) [#/Vol] 4.60 10*6/uL Normal 4.2-5.4 [facility] Comment on above: Performed By: #### L 500.4050, L501.9985, L502.0250, L500.4100, L100.0100 #### [facility] [address] [place], [address] RDW SD 39.8 fl Normal 35.1-43.9 [facility] Comment on above: Performed By: #### L 500.4050, L501.9985, L502.0250, L500.4100, L100.0100 #### [facility] [address] [place], [address] WBC (Bld) [#/Vol] 7.1 10*3/uL Normal 4.4-11.0 [facility] Comment on above: Performed By: #### L 500.4050, L501.9985, L502.0250, L500.4100, L100.0100 #### [facility] [address] [place], [address] Comprehensive Metabolic [facility] 02-03-2024 Albumin [Mass/Vol] 3.3 g/dL Normal 3.2-5.0 [facility] Comment on above: Order Comment: LIPID Performed By: #### L 500.4050, L501.9985, L502.0250, L500.4100, L100.0100 #### [facility] [address] [place], [address] Albumin/Globulin [Mass ratio] 0.7 {ratio} Low 0.9-2.4 [facility] Comment on above: Order Comment: LIPID Performed By: #### L 500.4050, L501.9985, L502.0250, L500.4100, L100.0100 #### [facility] [address] [place], [address] ALK P 87 U/L Normal 45-117 [facility] Comment on above: Order Comment: LIPID Performed By: #### L 500.4050, L501.9985, L502.0250, L500.4100, L100.0100 #### [facility] [address] [place], [address] ALT [Catalytic activity/Vol] 53 U/L Normal 13-56 [facility] Comment on above: Order Comment: LIPID Performed By: #### L 500.4050, L501.9985, L502.0250, L500.4100, L100.0100 #### [facility] [address] [place], [address] AST [Catalytic activity/Vol] 33 U/L Normal 15-37 [facility] Comment on above: Order Comment: LIPID Performed By: #### L 500.4050, L501.9985, L502.0250, L500.4100, L100.0100 #### [facility] [address] [place], [address] Bilirubin [Mass/Vol] 0.60 mg/dL Normal 0.20-1.00 [facility] Comment on above: Order Comment: LIPID Result Comment: For patients on eltrombopag therapy, use of Dimension [place] TBIL is not recommended. Performed By: #### L 500.4050, L501.9985, L502.0250, L500.4100, L100.0100 #### [facility] [address] [place], [address] BUN/CRE 34.7 RATIO High 10-20 [facility] Comment on above: Order Comment: LIPID Performed By: #### L 500.4050, L501.9985, L502.0250, L500.4100, L100.0100 #### [facility] [address] [place], [address] CA,Total 10.3 mg/dL High 8.5-10.1 [facility] Comment on above: Order Comment: LIPID Performed By: #### L 500.4050, L501.9985, L502.0250, L500.4100, L100.0100 #### [facility] [address] [place], [address] Chloride [Moles/Vol] 103 mmol/L Normal 98-107 [facility] Comment on above: Order Comment: LIPID Performed By: #### L 500.4050, L501.9985, L502.0250, L500.4100, L100.0100 #### [facility] [address] [place], [address] CO2 [Moles/Vol] 27.0 mmol/L Normal 21.0-32.0 [facility] Comment on above: Order Comment: LIPID Performed By: #### L 500.4050, L501.9985, L502.0250, L500.4100, L100.0100 #### [facility] [address] [place], [address] Creatinine [Mass/Vol] 0.40 mg/dL Low 0.55-1.02 [facility] Comment on above: Order Comment: LIPID Result Comment: The validity of the calculated GFR GFRAA in patients over 70 years has not been determined. Clinical correlation is essential. Performed By: #### L 500.4050, L501.9985, L502.0250, L500.4100, L100.0100 #### [facility] [address] [place], [address] EST GFR - AA 209 mL/min Normal >60 [facility] Comment on above: Order Comment: LIPID Result Comment: Afri can [place] GFR Calc Performed By: #### L 500.4050, L501.9985, L502.0250, L500.4100, L100.0100 #### [facility] [address] [place], [address] GAP 8 Normal 5-15 [facility] Comment on above: Order Comment: LIPID Performed By: #### L 500.4050, L501.9985, L502.0250, L500.4100, L100.0100 #### [facility] [address] [place], [address] GFR/1.73 sq M.predicted among non-blacks MDRD (S/P/Bld) [Vol rate/Area] 173 mL/min/{1.73_m2} Normal >60 [facility] Comment on above: Order Comment: LIPID Result Comment: Non- GFR Calc Performed By: #### L 500.4050, L501.9985, L502.0250, L500.4100, L100.0100 #### [facility] [address] [place], [address] Globulin (S) [Mass/Vol] 4.9 g/dL High 2.2-4.2 [facility] Comment on above: Order Comment: LIPID Performed By: #### L 500.4050, L501.9985, L502.0250, L500.4100, L100.0100 #### [facility] [address] [place], [address] Glucose [Mass/Vol] 107 mg/dL High 74-106 [facility] Comment on above: Order Comment: LIPID Result Comment: Fast ing Glucose result from 100 to 125 mg/dL suggests IMPAIRED HOMEOSTASIS per A.D.A. criteria. Performed By: #### L 500.4050, L501.9985, L502.0250, L500.4100, L100.0100 #### [facility] [address] [place], [address] Potassium [Moles/Vol] 3.2 mmol/L Low 3.5-5.1 [facility] Comment on above: Order Comment: LIPID Performed By: #### L 500.4050, L501.9985, L502.0250, L500.4100, L100.0100 #### [facility] [address] [place], [address] Sodium [Moles/Vol] 137 mmol/L Normal 136-145 [facility] Comment on above: Order Comment: LIPID Performed By: #### L 500.4050, L501.9985, L502.0250, L500.4100, L100.0100 #### [facility] [address] [place], [address] T PROT 8.2 g/dL Normal 6.4-8.2 [facility] Comment on above: Order Comment: LIPID Performed By: #### L 500.4050, L501.9985, L502.0250, L500.4100, L100.0100 #### [facility] [address] [place], [address] Urea nitrogen [Mass/Vol] 14 mg/dL Normal 7-18 [facility] Comment on above: Order Comment: LIPID Performed By: #### L 500.4050, L501.9985, L502.0250, L500.4100, L100.0100 #### [facility] [address] [place], [address] Hemoglobin A1con 02-03-2024 HbA1c (Bld) [Mass fraction] 8.2 % High 3.8-5.6 [facility] Comment on above: Result Comment: Norm al < 5.7 % Prediabetic 5.7 - 6.4 % Diabetic >or= 6.5 % Please note range changes. Performed By: #### L 500.4050, L501.9985, L502.0250, L500.4100, L100.0100 #### [facility] [address] [place], [address] Lipid Profileon 02-03-2024 Cholesterol [Mass/Vol] 124 mg/dL Normal 200 [place] Comment on above: Order Comment: LIPID Result Comment: <200 mg/dL Desirable 200-240 mg/dL Borderline >240 mg/dL High Risk Performed By: #### L 500.4050, L501.9985, L502.0250, L500.4100, L100.0100 #### [facility] [address] [place], [address] Cholesterol in HDL [Mass/Vol] 37 mg/dL Low [facility] Comment on above: Order Comment: LIPID Result Comment: The drugs N-Acetylcysteine and Metamizole may falsely depress this assay. Reference Range HDL <40 mg/dL Low HDL Cholesterol HDL >or= 60 mg/dL High HDL Cholesterol Performed By: #### L 500.4050, L501.9985, L502.0250, L500.4100, L100.0100 #### [facility] [address] [place], [address] Cholesterol in LDL [Mass/Vol] 62 mg/dL Normal 0-130 [facility] Comment on above: Order Comment: LIPID Performed By: #### L 500.4050, L501.9985, L502.0250, L500.4100, L100.0100 #### [facility] [address] [place], [address] Cholesterol in VLDL [Mass/Vol] 25 mg/dL Normal 5-40 [facility] Comment on above: Order Comment: LIPID Performed By: #### L 500.4050, L501.9985, L502.0250, L500.4100, L100.0100 #### [facility] [address] [place], [address] Triglyceride [Mass/Vol] 123 mg/dL Normal [facility] Comment on above: Order Comment: LIPID Result Comment: The drugs N-Acetylcysteine and Metamizole may falsely depress this assay. Serum Triglycerides Reference Interval Normal <150 mg/dL Borderline high 150 - 199 mg/dL High 200 - 499 mg/dL Very High > or = 500 mg/dL Performed By: #### L 500.4050, L501.9985, L502.0250, L500.4100, L100.0100 #### [facility] [address] [place], [place], [address] Microalb:Creat Ratio,Random URon 02-03-2024 Creatinine [Mass/Vol] 43.20 mg/dL Normal NO RAN GE EST. [facility] Comment on above: Performed By: #### L 500.4050, L501.9985, L502.0250, L500.4100, L100.0100 #### [facility] [address] [place], [place], [address] MALB:CRE 11.6 mg/g CRE Normal <30 mg/g CRE [facility] Comment on above: Performed By: #### L 500.4050, L501.9985, L502.0250, L500.4100, L100.0100 #### [facility] [address] [place], [address] MICROALBUMIN,UR 5.0 mg/L Normal NO RANGE EST. [facility] Comment on above: Performed By: #### L 500.4050, L501.9985, L502.0250, L500.4100, L100.0100 #### [facility] [address] [place], [address] 36on 01-31-2024 36 Rec'd PA request for Ozempic, called pharmacy, they stated it went through no charge but the Novolog cannot be filled until February 15, 2024 [facility] 36on 01-30-2024 36 done Normal [place] [address] Pharmacy called and stated that Ozempic prescription should be corrected to a 4mg pen. Please advise. [place] [address] DD reviewed Trends improved greatly Increase Ozempic to 1mg weekly; once ozempic is increased can cut back Novolog to 6 units with meals; continue Basaglar Message/call again in 2 weeks to consider further decreasing insulin Normal [place] [address] Name of caller: Rossana contreras Contact phone number: [phone] Relationship to Patient: patient Provider: JANNY Armijo Practice: Endo Chief Complaint/Reason for Call: Patient calling to advise that it is time to pull her glucose log report. Please advise, Best time of day caller can be reached: Any Patient advised that office/PCP has 24-48 business hours to return their call: Yes [facility] 29on 01-14-2024 29 Addended by: SAUL ARMIJO on: 01/14/2024 03:45 PM Modules accepted: Orders [facility] 37on 01-14-2024 37 *Please arrive 15 minutes prior to your scheduled appointment to ensure we have adequate time together at each visit to address all your health needs *It is recommended that you schedule your follow up appointments well in advance as the schedule fills up quickly *Bring your glucometer, blood sugar logs or CGM if being seen for diabetic care to ensure your trends can be thoroughly evaluated *Ordered labs should be done at least a week prior to your next scheduled appointment, fasting unless instructed otherwise *Due to possible lab interference, please hold any biotin-containing supplements including multivitamins or other over the counter supplements for at least 5 days prior to your labs being done. *Should you have any questions or concerns regarding your plan of shoaib, please send me a message via [employer] or call [phone] so we can address your needs *Please notify at appointments of any refill needs. Should you require refills prior to your next appointment, please notify the office at least a week prior to your last dose to allow adequate time for review and authorization if required. To Do List: Schedule eye exam Novolog increased to 10 units with meals; if you do not eat do not take Basaglar increase to 24 units every morning Fasting labs in 3 months Continue Ozempic - Test your blood sugar 4 times daily via glucometer (or by continuous glucose monitor) and send message/readings to office in 2 weeks for review. Sooner if issues arise. - Your A1c goal is 7% - Work on lifestyle modifications of diet and exercise to assist with improving diabetic control - Check your feet daily for optimal foot care- follow with podiatry if needed - Continue following with ophthalmology every year for your dilated eye exam - Please take your medication as prescribed. If you encounter issues with side effects, glucose control, or cost please let me know - Uncontrolled diabetes has effects on multiple organ systems. Keeping your trends at goal and with limited variability will help to reduce your risk for future complications such as heart disease, chronic kidney disease, nerve damage (neuropathy), and other problems with your feet, oral health, vision, hearing, and mental health. - Be mindful of symptoms of both hypoglycemia (<70) and hyperglycemia (>250) and notify me if you are seeing trends outside these parameters consistently so we can adjust your plan of care. Gvoke Emergency Glucagon Gvoke HypoPen can be administered into the outer upper arm, lower abdomen, or outer thigh. Store in original sealed pouch until time of use. Know When To Use Gvoke HypoPen Severe low blood sugar requires immediate attention. Gvoke HypoPen should be used if you experience any of the following during a low blood sugar emergency Correcting with food or drink isn?t working You are unable to swallow safely You feel like passing out You pass out or have a seizure Normal [facility] HbA1c (Bld) [Mass fraction]o n 01-14-2024 Interpretation and review of laboratory results Abnormal [facility] - Hematology and Cell countson 01-14-2024 HbA1c (Bld) [Mass fraction] 9.5 % Abnormal - 5.7 % [facility] Office Visiton 01-14-2024 Follow-up visit [id number] Taylor Wesley 1965 F Date Provider Department Center 01/14/2024 [id number] ARMIJO [facility] None Family History Problem Relation Age of Onset Breast cancer Mother Diabetes Maternal Grandmother Family Status - Relation Status Age at Mother Maternal Grandmother Level of Service:18219 DE OFFICE/OUTPATIENT ESTABLISHED HIGH MDM 40 MIN Reason for Visit and Comments: Diabetes Mellitus [183] Normal [facility] Progress Noteon 01-14-2024 Progress Note [facility] [place] [address] [place] [address] Dept: [phone] Dept Loc: [phone] Visit type: Established Patient Reason for Visit: Diabetes Mellitus Assessment and Plan 1. Type 2 diabetes mellitus with hyperglycemia, with long-term current use of insulin (HCC) - AMB POC HEMOGLOBIN A1C - OneTouch Verio test strip; Use as instructed for CGM failure QID, Normal - glucose 4 g chewable tablet; Chew 4 tablets (16 g) Daily as needed for low blood sugar., Starting Sat01/14/2024, Until Sat01/13/2025 at 2359, Normal - glucagon (Gvoke HypoPen 2-Pack) 1 MG/0.2ML injection; Inject 0.2 mL (1 mg) under the skin Once as needed for low blood sugar for up to 8 doses., Starting Sat01/14/2024, Normal - Basaglar KwikPen 100 UNIT/ML pen; Inject 24 Units under the skin every morning., Starting Sat01/14/2024, Until Sat01/13/2025, Normal - insulin aspart (NovoLOG) 100 UNIT/ML pen; Inject 10 Units under the skin 3 times daily (with meals)., Starting Sat01/14/2024, Until Sat01/13/2025, Normal - insulin pen needle 32G x 4 mm misc; 4 times daily, Normal - Lancets ([employer] TechnologiesTouch Delica Plus [id number]) misc; 1 each as needed for CGM failure 4 times daily, Normal - Alcohol Swabs pads; Use as directed 4 times daily, Normal - Lipid panel - T4, free - Comprehensive metabolic panel - Hemoglobin A1c - TSH - Microalbumin / creatinine urine ratio - Diabetes Foot Exam 2. Essential (primary) hypertension - Comprehensive metabolic panel - Microalbumin / creatinine urine ratio 3. Obesity (BMI 30-39.9) - TSH Lab Results Component Value Date HGBA1C 9.5 (A) 01/14/2024 HGBA1C 10.4 (H) 11/19/2023 Lab Results Component Value Date EGFR >90.0 11/19/2023 DM2 Diabetes is: poorly controlled but improving Glycemic Target: 7% Recommendations: Basaglar 20 units QAM--> 24 QAM Novolog 8 units tidac--> 10 tidac Ozempic 0.5mg weekly; continue for 3 more weeks then consider optimizing -Hypo: glucagon sent -Meter/Supplies: on hand --> Labs to be done fasting prior to next visit; discussed holding supplements 5 days prior. 3 months --> BG monitoring: DD in 2 weeks --> Schedule HALEY --> Chart forwarded to DSME to follow up on teaching/behaviors --> Statin: defer until lipid scheduled Education: - Notification Parameters - Glucagon emergency use instructions given via AVS - Dexcom replacement protocol - Appropriate insulin admin sites HTN PCP Managed Lozol BP stable --> Continue current therapy Obesity Body mass index is 36.94 kg/m?. Wt Readings from Last 3 Encounters: 01/14/24 182 lb 14.4 oz (83 kg) 11/19/23 192 lb 9.6 oz (87.4 kg) 10/18/23 202 lb (91.6 kg) --> Continue to work on lifestyle changes: dietary habits; increasing activity as able, weight reduction --> Optimize DM agents to aid w/ the same. [] Records from outside facility/PCP office to be requested. [x] Scripts sent to pharmacy of choice. No follow-ups on file. Diagnostic Data Reviewed Today: CGM AGP Reviewed: Yes Total time spent 40 minutes which included review of records, counseling, management, and coordination of care as documented above. Subjective HPI PCP: Ion Williamson DO DSME: 01/14/2024-Johnna; general ed Since RANDY: New to me Known to IP team from 11/2023 admit for hyperglycemia s/p BL salpingoophorectomy Medication Cost Concerns: Denies Missed Medication Doses: Denies Medication Side Effect: Denies Recent Steroid use: Denies Recent Weight Changes: Denies Exercise Patterns: Wheelchair bound Dietary Patterns: tidac; lots of juice Employment/Lifestyle Patterns/Schedule Alterations: Works at [employer] History of Type 2 Diabetes Age at Onset: 56 yo Circumstances surrounding dx: polyuria--> screening Previous hospitalizations for DM: Endorses-11/2023 hyperglycemia s/p BL salpingoophorectomy Family hx DM: Endorses-Maternal Grandmother Family hx thyroid disease/thyroid cancer: Denies Current Medication Regimen: Basaglar 20; ordered 24 QAM Novolog 8 units tidac Ozempic 0.5mg weekly Previously Used DM Agents: Metformin: diarrhea Glimepiride: DC by IP service Injection Sites/Rotation: rotates; has help administering; pt self admin at work in thigh muscles; educated on the same/appropriate admin sites OTC Supplement Usage: Endorses-vitamin C intermittently Glucose Monitoring CGM use: Yes-Dexcom G7 w/ phone BG Monitoring: one touch verio on hand Recent Hypoglycemia: Endorses- 70s yesterday Hypoglycemic Treatment Plan: glucagon sent BG Trends: persistently above goal Trend Review: Complication History Retinopathy: Denies - Last Dilated Eye Exam: Overdue; Dr Ornelas ([facility]) Neuropathy: Denies - Last DMFE: 01/14/2024. Community Service Representative: NA HTN: Endorses HLD: Denies Renal: Denies Cardiac: Denies CVA: Endorses-1x as child JAZMINE: Denies Gastroparesis: Denies H/ (more content not included)... Normal [facility] Progress Note [facility] [address] [place] [address] Dept: [phone] Dept Visit Date: 01/14/2024 Individual DSME Appointment Taylor Wesley,1965, 58 y.o., HPI: Type 2 diabetes with hyperglycemia without long-term insulin use Patient here for diabetes education. Diabetes Education Assessment SUBJECTIVE Member desires education about diabetes mellitus OBJECTIVE No clinical evaluation done in session ASSESSMENT Deficient knowledge for self-management of diabetes. PLAN The purpose of this session is to provide fundamental education to patients with diabetes mellitus . Diabetes education provided today: Diabetes basic anatomy and physiology. Difference between type 1 and type 2 or other categories of Diabetes. Checking BG, frequency, Result interpretation, Glycemic goals, identifying trends, availability of phone applications, CGM (Continuous Glucose Monitoring) and in the need to communicate results to physician (ordering), regularly The most recent recorded HgbA1C result; its interpretation, ADA/ AACE goal and the inter-relationship between physical activity, food intake and oral med(s), insulin(s) and stress. Managing high and low glucose readings, Recommended to have source of glucose on person at all times to treat hypoglycemia. Insulin type, method of action, method of administration Rotation of sites for subcutaneous medication injection Nutrition as a mainstream of diabetes therapy. Carbs: importance of carb counting, incorporation of protein with each meal to reduce Glycemic index, importance of portions, Carb/insulin ratio Fats: Saturated, Polyunsaturated, Monounsaturated, meal planning and supplements. Physical activity: advised to exercise 5-7 days a week 30-60 mins at least. Its role in increasing insulin sensitivity. Continuous Glucose monitor. How it works and checks blood glucose, frequently. Potential and prevention of complications Educational Materials given to patient: Hypoglycemia Hyperglycemia Carb Counting Book Plate Method sheet Sick Day Management Living with Diabetes Dexcom DL in media. Patient taking novolog , Ozempic 0.50 and Basaglar 20. Did not increase the Basaglar to 24. Patient to call office to pull Dexcom DL in 2 weeks PLAN: --patient monitoring and reporting BG readings, at regular intervals --Patient to begin reading labels and counting carbs --Patient to eat 3 meals a day with consistent carbohydrate and protein --continue current medication regimen Time spent with patient 45 minutes for diabetes education. I have reviewed previous records and previous workup. Electronically signed by Nigel Maradiaga RN Educator [facility] 29on 01-03-2024 29 Addended by: SAUL ARMIJO on: 01/03/2024 10:53 AM Modules accepted: Orders [facility] 36on 01-03-2024 36 Spoke to patient and caregiver. Gave new orders as written. Caregiver wrote down new orders for patient. [facility] 36 Increase Ozempic as planned Increase Basaglar to 24 daily Start Humalog 8 with meals Message for DD 2 weeks [facility] 36 Spoke to patient. Is taking the Basaglar 20 units in am and is taking the 0.25 Ozempic. Will start the 0.5 dose next week. Advised if any changes to meds will contact patient. Patient agreed will be at appt 01/13. [facility] 36on 01-02-2024 36 Very poor control Insulin dosages/meds need confirmed as I have never seen the pt Per November IP note was to optimize ozempic 0.25-->0.5 and start Basaglar Please confirm timing/dosages Thank you [facility] 36 Name of caller: Rossana contreras Contact phone number: [phone] Relationship to Patient: patient Provider: Dr. Miner Practice: Endo Chief Complaint/Reason for Call: Pt states she is calling to let the office to download her recent readings. Please advise. Best time of day caller can be reached: any Patient advised that office/PCP has 24-48 business hours to return their call: N/A [facility] 36on 12-17-2023 36 Pt called back with can get vaccines. Pt verbalized understanding. [facility] 36 Patient would like t o know when she could get her flu shot and covid vaccine in relation to her surgery. Patient also requested for her [facility] paperwork to be completed by the 14th. 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 [facility] Progress Noteon 12-16-2023 Progress Note GYNECOLOGIC ONCOLOGY - FOLLOW-UP VISIT CHIEF COMPLAINT/PUPROSE OF VISIT: Taylor Wesley is a 58 y.o. female 2 weeks s/p TOTAL ABDOMINAL HYSTERECTOMY BILATERAL SALPINGO OOPHORECTOMY with Dr. Bruce. INTERVAL HISTORY: Overall doing well since surgery. Denies signifcant pain, bleeding. Tolerating regular diet, denies N/V. Denies issues with BM or urination. ECOG PS 0 Pathology: UTERUS WITH BILATERAL FALLOPIAN TUBES, BILATERAL OVARIES, AND ADHERENT OMENTUM, HYSTERECTOMY WITH BILATERAL SALPINGO-OOPHORECTOMY AND OMENTECTOMY: - UTERUS WITH WEAKLY PROLIFERATIVE ENDOMETRIUM AND CERVIX SHOWING CHRONIC CERVICITIS AND SQUAMOUS METAPLASIA - LEIOMYOMATA WITH CALCIFICATIONS AND FOCAL INFARCT-LIKE NECROSIS - BILATERAL UNREMARKABLE OVARIES - BILATERAL FALLOPIAN TUBES WITH MILD CHRONIC INFLAMMATION - UNREMARKABLE MATURE ADIPOSE TISSUE, CONSISTENT WITH OMENTUM ROS: 12 point review of systems performed, pertinent items are noted in HPI; all other review of systems were negative. MEDICATIONS: Current Outpatient Medications Medication Sig Dispense Refill potassium chloride CR (Klor-Con M20) 20 MEQ ER tablet Take 20 mEq by mouth daily. Take with food. acetaminophen (Tylenol) 325 MG suppository Insert into the rectum. (Patient not taking: Reported on 01/14/2024) albuterol 108 (90 Base) MCG/ACT inhaler Inhale 2 puffs every 6 hours as needed for wheezing. Alcohol Swabs pads Use as directed 4 times daily 400 each 11 apixaban (Eliquis) 2.5 MG tablet Take 1 tablet (2.5 mg) by mouth 2 times daily for 28 days. 56 tablet 0 Ascorbic Acid (vitamin C) 100 MG tablet Take 100 mg by mouth as needed. Basaglar KwikPen 100 UNIT/ML pen Inject 24 Units under the skin every morning. 21.6 mL 3 Continuous Glucose Sensor (Dexcom G7 Sensor) misc Use every 10 days 9 each 5 diazePAM (Valium) 5 MG tablet TAKE 1 TABLET BY MOUTH ONCE DAILY ONE HOUR BEFORE MEDICAL PROCEDURES. MUST LAST 90 DAYS OR LONGER. glucagon (Baqsimi Two Pack) 3 MG/DOSE nasal powder Administer 3 mg into affected nostril(s) Once as needed for low blood sugar. 2 each 3 glucose 4 g chewable tablet Chew 4 tablets (16 g) Daily as needed for low blood sugar. 50 tablet 3 indapamide (Lozol) 2.5 MG tablet daily. insulin aspart (NovoLOG) 100 UNIT/ML pen Inject 10 Units under the skin 3 times daily (with meals). 21.6 mL 3 insulin pen needle 32G x 4 mm misc 4 times daily 100 each 11 Lancets (OneTouch Delica Plus [id number]) misc 1 each as needed for CGM failure 4 times daily 400 each 11 ondansetron (Zofran) 4 MG tablet Take by mouth. PRN OneTouch Verio test strip Use as instructed for CGM failure QID 400 each 11 Potassium Chloride (KLOR-CON PO) Take 20 mEq by mouth daily. semaglutide (Ozempic, 0.25 or 0.5 MG/DOSE,) 2 MG/3ML solution pen-injector 0.25 mg weekly for 4 weeks then increase to 0.5 mg weekly 3 mL 3 No current facility-administered medications for this visit. VITAL SIGNS: Blood pressure 137/78, pulse 91, last menstrual period 11/19/2023. No data recorded PHYSICAL EXAM: General: Alert and oriented. in no acute distress. Able to ambulate on and off the exam table without difficulty. Heart: Regular rate Lungs: Easy respirations Abdomen: Soft, Non-tender, non-distended. Skin: No significant rashes, petechia or purpura. Well healing surgical incision without erythema, induration, or drainage. Extremities: No cyanosis, clubbing, or edema Mental: Mood and affect appropriate for situation Pelvis: Def DIAGNOSTICS: I reviewed the imaging studies and agree with the interpretation as recorded. I reviewed the pertinent laboratory and diagnostic data. ASSESSMENT/PLAN: - Doing well post-op - Reviewed final pathology, benign - Continue restrictions until 6 weeks postoperatively - Follow-up with primary [employer]GS[employer] MAT INSPECTOR for annual well woman exams. I explained diagnosis and treatment plan; patient expressed understanding and was in agreement with the plan. Marisol Emery, BARBARA - SUPERINTENDENT AUTOMOTIVE [facility] 12-05-2023 36 Patient states she i s having some bleeding not filling a pad this has been going on for a few days just wanted you to know. I called patient back and let her know spotting is normal if it is a pad an hour to please call the office at [phone] to let us know. [facility] 12-03-2023 36 S: Patient spoke wit [facility] nurse regarding post op questions, bleeding found. B: Onset of symptoms/concern taking Eliquis ordered by Dr. Duque (ordered this for 28 day post operative as preventative for DVT) , Had a catheter post operative, Post op on Dec 15. A: Total abdominal hysterstomy. BSO used restroom she noticed a clot when urination and there is blood when she wipes, Clot pencil eraser x 1. No dizziness. R: Home care advise will continue to monitor for bleeding, if saturating a pad an hour. Will monitor for lightheadedness, dizziness or fever. Patient understands care advice. No further needs at this time. Patient instructed to call back with new or worsening symptoms. Reason for Disposition Other post-op symptom or question Protocols used: Post-Op Symptoms and [facility] Lvm informing patien t of the move from Dr. Astorga's schedule to Marisol's. Same date and time. [place] [id number] 36 ----- Message from Robert Bruce MD sent at 12/02/2023 6:23 AM EDT ----- Please call and let her know pathology was completely benign. She also wanted to know the weight so L it was 2769 g. Please see for postop. [facility] [address] Vanessa at [phone] via [employer] System[employer]. Confirmation scanned within media [facility] 36 ----- Message from Robert Bruce MD sent at 12/02/2023 6:23 AM EDT ----- Plz fax to Dr Ana Rosa Vanessa in [place] ----- Message ----- From: [employer] User, Altagracia Sent: 11/27/2023 12:50 PM EDT To: Robert Bruce MD [facility] [id number] 11-29-2023 [id number] Discussed Home Care Services available to patient post DC from the hospital. Educated the patient and spouse on the services that are provided, objective of home care, and reason for the services. At this time the patient states they feel home care is not necessary due to feeling comfortable transferring to and from wheelchair independently or with assistance from spouse. The patient politely refused the home care services. The patient was educated that should any needs arise post DC to follow up with their PCP. The patient was able to verbalize understanding. Home care to sign off. Please re-consult should any other needs arise prior to DC. [facility] CARECOORDon 11-29-2023 CARECOORD Pt to be discharged to home with spouse today. PT recommending home health but pt declined per Jolene SABA. Pt denies any needs from tcc. [facility] Laboratory - Chemistry and C hemistry - challengeon 11-29-2023 Glucose [Mass/Vol] 177 mg/dL High 70 - 100 mg/dL [facility] Glucose [Mass/Vol] 199 mg/dL High 70 - 100 mg/dL [facility] No Panel Informationon 11-28 Interpretation and review of laboratory results Abnormal [facility] Performed by: [facility], [address] [place] [address] CLIA ID: [id number] [facility] Interpretation and review of laboratory results Abnormal [facility] Performed by: [facility], [address] [facility], [facility], [facility] [address] CLIA ID: [id number] [facility] Nursing Noteon 11-29-2023 Nursing Note Pt discharge papers reviewed and signed, pt verbalized understanding Normal [facility] Progress Noteon 11-29-2023 Progress Note PHYSICAL THERAPY [facility] Name/MRN: Taylor Wesley ([id number]) Date: 11/29/2023 Pt is planning on going home today, prefers to save her energy for transfer to home. Di Anaya, PT [facility] Progress Note Department of Electrician Elevator Maintenance al Medicine Division of Endocrinology, Diabetes, & Metabolism Endocrinology Note Patient Name: Taylor Wesley : 1965 AGE: 58 y.o. Room/Bed: [facility]/[address] Admission Date: 11/26/2023 Visit Date: 11/29/2023 Reason for Endocrine Consult: Uncontrolled T2DM Provider/Team Requesting Consult: Dr. Linda PCP: Ion Williamson DO Outpt Devops: No ASSESSMENT: Type 2 diabetes with hyperglycemia without long-term insulin use Status post total abdominal hysterectomy Morbid obesity Steroid-induced hyperglycemia: Patient received dexamethasone 4 mg after surgery PLAN: Blood glucose readings improved. Continue same insulin doses ICU goal <180 GMF goal <150 POCT BG ACHS Hypoglycemia management per protocol Carb controlled diet ANTICIPATED ENDOCRINE HOME GOING RECOMMENDATIONS: Optimized for Discharge from Endocrine standpoint: yes Home Going Endocrine Rx Recommendations-- Basaglar 20 units every morning Insulin pen needle 32 x 4 mm 4 times a day Ozempic 0.25 mg weekly for 4 weeks then increase it to 0.5 mg weekly Dexcom G7 sensor every 10 days I sent all prescriptions to her pharmacy Provide on discharge Outpt Follow Up-- [facility] endocrinology, TE sent SUBJECTIVE/HPI: CHIEF COMPLAINT: Status post total abdominal hysterectomy Denies complaints. Blood glucose readings improving Glucose Date/Time Value Ref Range Status 11/29/2023 07:44 AM 199 (H) 70 - 100 mg/dL Final 11/28/2023 07:54 PM 223 (H) 70 - 100 mg/dL Final 11/28/2023 05:02 PM 156 (H) 70 - 100 mg/dL Final 11/28/2023 11:44 AM 206 (H) 70 - 100 mg/dL Final 11/28/2023 07:32 AM 263 (H) 70 - 100 mg/dL Final 11/28/2023 12:46 AM 359 (H) 70 - 100 mg/dL Final ROS negative except for those mentioned in HPI. OBJECTIVE: Vitals: 11/28/23 0526 11/28/23 1703 11/28/23 2105 11/29/23 0545 BP: 129/76 109/80 125/59 128/59 BP Location: Left arm Pulse: 86 83 98 83 Resp: 16 18 16 Temp: 36.6 ?C (97.8 ?F) 36.1 ?C (97 ?F) 36.6 ?C (97.8 ?F) 36.3 ?C (97.3 ?F) TempSrc: Temporal Temporal Temporal Temporal SpO2: 98% 99% 94% 97% Physical Exam Constitutional: General: She is not in acute distress. HENT: Head: Normocephalic and atraumatic. Pulmonary: Effort: Pulmonary effort is normal. No respiratory distress. Skin: General: Skin is warm and dry. Neurological: Mental Status: She is alert. Psychiatric: Mood and Affect: Mood normal. Thought Content: Thought content normal. 24 hour intake/output: Intake/Output Summary (Last 24 hours) at 11/29/2023 1125 Last data filed at 11/29/2023 0700 Gross per 24 hour Intake 100 ml Output 100 ml Net 0 ml Diet: Adult diet Regular; 4 carb choices (60 gm/meal) Medications (as per EMR): HomeMeds: Current Outpatient Medications Medication Instructions acetaminophen (Tylenol) 325 MG suppository Rectal albuterol 108 (90 Base) MCG/ACT inhaler 2 puffs, Inhalation, Every 6 hours PRN Basaglar KwikPen 20 Units, SubCUTAneous, Every morning Continuous Glucose Sensor (High Brew Coffee G7 Sensor) misc Use every 10 days diazePAM (Valium) 5 MG tablet TAKE 1 TABLET BY MOUTH ONCE DAILY ONE HOUR BEFORE MEDICAL PROCEDURES. MUST LAST 90 DAYS OR LONGER. glimepiride (AMARYL) 2 mg, Oral, 2 times daily indapamide (Lozol) 2.5 MG tablet Daily insulin pen needle 32G x 4 mm misc Once a day ondansetron (Zofran) 4 MG tablet Oral, PRN Potassium Chloride (KLOR-CON PO) 20 mEq, Oral, Daily semaglutide (Ozempic, 0.25 or 0.5 MG/DOSE,) 2 MG/3ML solution pen-injector 0.25 mg weekly for 4 weeks then increase to 0.5 mg weekly Scheduled Meds:acetaminophen, 1,000 mg, Oral, q6h enoxaparin, 40 mg, SubCUTAneous, Daily hydroCHLOROthiazide, 50 mg, Oral, Daily ibuprofen, 600 mg, Oral, q6h insulin glargine, 20 Units, SubCUTAneous, q AM insulin lispro, 0-12 Units, SubCUTAneous, TID WC insulin lispro, 7 Units, SubCUTAneous, TID WC polyethylene glycol (PEG) 3350, 17 g, Oral, Daily sodium chloride 0.9%, 10 mL, IntraVENous, 2 times per day Continuous Infusions:lactated Ringer's, 50 mL/hr, Last Rate: 50 mL/hr (11/26/23 0903) PRN Meds:PRN medications: albuterol, dextrose, dextrose, glucagon (rDNA), glucose, naloxone, ondansetron ODT OR ondansetron, oxyCODONE OR oxyCODONE, senna-docusate sodium, sodium chloride, sodium chloride 0.9% Diagnostic Workup: I reviewed pertinent Laboratory results, Radiographic results, and Other Clinical Notes at the time of today's encounter. Labs: No components found for: LABA1C No components found for: EAG No results found for: NA, K, CL, CO2, BUN, CREATININE, GLUCOSE, CALCIUM No results found for: CHLPL, CHOL No results found for: TRIG No results found for: HDL No results found for: LDLCALC No results found for: VLDL No results found for: CHOLHDLRATIO No results found for: [id number] No results found for: TSH, V1IJQQM, Y2WGLUY, THYROIDAB Radiology reportsas pe (more content not included)... [facility] Progress Note -- Attestation signed by Kalyn Adam MD at 11/30/2023 8:36 PM Patient seen and examined 11/29/2023, agree with resident documentation. Glucose control somewhat improved, appreciate Endocrine assistance. Appropriate for discharge home, reviewed discharge instructions and precautions. Kalyn Adam MD [employer] MAT INSPECTOR ONC Progress Note Date: 11/29/2023 Time: 6:32 AM Please page the [facility] [employer] MAT INSPECTOR ONC Call RES group via Secure Chat for any questions or concerns. Taylor Wesley 58 y.o. female , POD # 3 s/p GERARDO, BSO Patient seen and examined. She states that her bloating is much improved from yesterday. Has not had a bowel movement yet, but feels as though the stool softener is working. Pain is controlled. Patient is tolerating oral intake. She is urinating. She is passing flatus. She denies Fever/Chills, Chest Pain, SOB, N/V. Vitals: Vitals: 11/28/23 0526 11/28/23 1703 11/28/23 2105 11/29/23 0545 BP: 129/76 109/80 125/59 128/59 BP Location: Left arm Pulse: 86 83 98 83 Resp: 19 16 18 16 Temp: 36.6 ?C (97.8 ?F) 36.1 ?C (97 ?F) 36.6 ?C (97.8 ?F) 36.3 ?C (97.3 ?F) TempSrc: Temporal Temporal Temporal Temporal SpO2: 98% 99% 94% 97% Intake/Output: Current Shift: I/O this shift: In: 100 [P.O.:100] Out: - Physical Exam: Gen: NAD, alert and cooperative HEENT: Normocephalic, atraumatic, EOMI, MMM Resp: No increased WOB Card: Regular rate Abd: soft, benign, no rebound, no guarding Incisions: midline vertical incision C/D/I with steri-strips Ext: No LE edema, no calf tenderness or swelling Medications: Current Facility-Administered Medications: acetaminophen (Tylenol) tablet 1,000 mg, 1,000 mg, Oral, q6h, Lainey Linda DO, 1,000 mg at 11/28/23 0550 albuterol 108 (90 Base) MCG/ACT inhaler 2 puff, 2 puff, Inhalation, q6h PRN, Lainey Linda DO dextrose 5 % infusion, 100 mL/hr, IntraVENous, PRN, Di Duque DO dextrose 50 % solution 12.5 g, 12.5 g, IntraVENous, PRN, Di Duque, enoxaparin (Lovenox) syringe 40 mg, 40 mg, SubCUTAneous, Daily, Lainey Linda DO, 40 mg at 11/28/23 0917 glucagon (human recombinant) injection 1 mg, 1 mg, IntraMUSCular, PRN, Di Duque DO glucose oral gel 15 g, 15 g, Oral, PRN, Di Duque, hydroCHLOROthiazide (HYDRODiuril) tablet 50 mg, 50 mg, Oral, Daily, Lainey Linda DO, 50 mg at 11/28/23 0917 [COMPLETED] ketorolac (Toradol) injection 30 mg, 30 mg, IntraVENous, 4 times per day, 30 mg at 11/27/23 1124 FOLLOWED BY ibuprofen tablet 600 mg, 600 mg, Oral, q6h, Lainey Linda DO, 600 mg at 11/29/23 0546 insulin glargine (Lantus) injection 20 Units, 20 Units, SubCUTAneous, q AM, Chana Horvath DO, 20 Units at 11/28/23 1123 Insulin Lispro (Humalog) injection 0-12 Units, 0-12 Units, SubCUTAneous, TID Chana DEVINE DO, 2 Units at 11/28/23 1747 Insulin Lispro (Humalog) injection 7 Units, 7 Units, SubCUTAneous, TID Chana DEVINE DO, 7 Units at 11/28/23 1747 lactated Ringer's (LR) infusion, 50 mL/hr, IntraVENous, Continuous, Isabel Gonzalez APRN - CT, Last Rate: 50 mL/hr at 11/26/23902, Continued by Anesthesia at 11/26/23902 naloxone (Narcan) injection 0.4 mg, 0.4 mg, IntraVENous, q5 min PRN, Robert Bruce MD ondansetron ODT (Zofran-ODT) disintegrating tablet 4 mg, 4 mg, Oral, q8h PRN OR ondansetron (Zofran) injection 4 mg, 4 mg, IntraVENous, q6h PRN, Lainey Linda, DO oxyCODONE (Roxicodone) immediate release tablet 5 mg, 5 mg, Oral, q4h PRN OR oxyCODONE (Roxicodone) immediate release tablet 10 mg, 10 mg, Oral, q4h PRN, Lainey Henriquezace, DO, 10 mg at 11/28/232112 polyethylene glycol (PEG) 3350 (Miralax) packet 17 g, 17 g, Oral, Daily, Lainey Linda, DO, 17 g at 11/28/23916 senna-docusate sodium (Senokot-S) 8.6-50 MG tablet 2 tablet, 2 tablet, Oral, Daily PRN, Lainey Linda, DO, 2 tablet at 11/28/232111 sodium chloride 0.9 % infusion, 5-250 mL/hr, IntraVENous, PRN, Lainey Henriquezace, DO sodium chloride 0.9% (NS) flush 10 mL, 10 mL, IntraVENous, 2 times per day, Lainey Linda, DO, 10 mL at 11/28/232115 sodium chloride 0.9% (NS) flush 10 mL, 10 mL, IntraVENous, PRN, Lainey Linda, DO Diagnostics: POCT glucose meter Result Date: 11/27/2023 Performed by: [facility], [address] [place] [address] CLIA ID: [id number] POCT glucose meter Result Date: 11/27/2023 Performed by: [facility], [address] [place] [address] CLIA ID: [id number] POCT glucose meter Result Date: 11/27/2023 Performed by: [facility], [address] [place] [address], [facility], [facility] [address] CLIA ID: [id number] POCT glucose meter Result Date: 11/27/2023 Performed by: [facility], [address] [place] [id number] CLIA ID: [id number] POCT glucose meter Result Date: 11/26/2023 Performed (more content not included)... Normal [facility] 36on 11-28-2023 36 Pt scheduled. Normal [facility] 36 Patient seen at [facility] for diabetes Please schedule follow-up appointment with Saul Horvath in 4 weeks Normal [facility] Laboratory - Chemistry and C hemistry - challengeon 11-28-2023 Glucose [Mass/Vol] 223 mg/dL High 70 - 100 mg/dL [facility] Glucose [Mass/Vol] 156 mg/dL High 70 - 100 mg/dL [facility] Glucose [Mass/Vol] 206 mg/dL High 70 - 100 mg/dL [facility] [employer] Glucose [Mass/Vol] 263 mg/dL High 70 - 100 mg/dL [facility] Glucose [Mass/Vol] 359 mg/dL High 70 - 100 mg/dL [facility] [employer] No Panel Informationon 11-27 Interpretation and review of laboratory results Abnormal [facility] [employer] Performed by: [facility], [address] [place] [address] CLIA ID: [id number] [facility] [employer] [facility] Interpretation and review of laboratory results Abnormal [facility] [employer] Performed by: [facility], [address] [place] [id number] CLIA ID: [id number] [facility] [employer] [facility] Interpretation and review of laboratory results Abnormal [facility] [employer] Performed by: [facility], [address] [place] [address] CLIA ID: [id number] [facility] [employer] [facility] Interpretation and review of laboratory results Abnormal [facility] [employer] Performed by: [facility], [address] [place] [address] CLIA ID: [id number] [facility] [employer] [facility] Interpretation and review of laboratory results Abnormal [facility] Performed by: [facility], [address] [place] [address], [place] [address] CLIA ID: [id number] [facility] Progress Noteon 11-28-2023 Progress Note Patient was evaluate d at the bedside this afternoon. She had no acute complaints. She is tolerating oral intake. Pain is well-controlled, though slightly more pain than this morning as she has been moving around more today. She is passing flatus, no bowel movement yet. Has been keeping track of her meals in her food danielle and RN working with her on insulin education. BGT's are improving. BP 129/76 (BP Location: Left arm) Pulse 86 Temp 36.6 ?C (97.8 ?F) (Temporal) Resp 19 Physical Exam: Gen: NAD, alert and cooperative Resp: No increased WOB Card: Regular rate Abd: Soft, slightly distended but stable since this AM, appropriately tender post-op, no rebound tenderness/guarding/ri gidity Incisions: Midline vertical incision C/D/I Ext: No LE edema, no calf tenderness or swelling A&P: Continue inpatient management Normal [facility] Progress Note Nutrition rescreen completed. Patient referred to the Dietitian. A1C 10.4; Uncontrolled DM. [facility] Progress Note -- Attestation signed by Chung Miner MD at 11/28/2023 12:39 PM I have personally performed a face to face diagnostic evaluation on this patient. In addition, I have reviewed the resident's/SED SPECIAL EDUCATION TEACHER/KETTLE HAND's care plan and agree with those findings I have performed a substantive portion of the the medical decision making. My findings are as follows: Denies nausea or vomiting Blood glucose readings elevated Gave extra NPH last night Vitals: BP 129/76 (BP Location: Left arm) Pulse 86 Temp 36.6 ?C (97.8 ?F) (Temporal) Resp 19 LMP 11/19/2023 (Exact Date) Comment: random bleeding SpO2 98% Respiratory: No respiratory distress Cardiovascular System: No lower extremity edema Abdomen: obese Psychiatric: Conscious, alert, oriented to time, place and person A/P Type 2 diabetes with hyperglycemia without long-term insulin use Status post total abdominal hysterectomy Morbid obesity Steroid-induced hyperglycemia: Patient received dexamethasone 4 mg after surgery Increase Lantus to 20 units every morning and Humalog to 7 units before meals Obtain blood glucose readings before meals and at bedtime Carb controlled diet Treat hypoglycemia per protocol Target BG on General floors: FBG <140 and random BG <180 Target BG for ICU <180 Patient was counseled about the importance of diabetes management. Patient was counseled about the importance of following a healthy diet and exercise. Patient was counseled about hypoglycemia symptoms and management. For discharge discussed with patient the option of basal insulin and GLP-1 receptor agonist The plan is to discharge patient on Basaglar plus Ozempic Will have patient also on Dexcom G7 Patient received diabetes education and Dexcom G7 was placed yesterday I spent 35 minutes with the pt which involved in coordination of care, medical evaluation, review of records, and/or counseling of the pt regarding his/her condition/disease state/prognosis on the date of this note. Old records including available PCP, ED notes and or other specialists notes are reviewed. LABs and/or imaging are reviewed as detailed in the resident's/SED SPECIAL EDUCATION TEACHER/KETTLE HAND's note Department of Internal Medicine Division of Endocrinology, Diabetes, & Metabolism Endocrinology Note Patient Name: Taylor Wesley : 1965 AGE: 58 y.o. Room[facility]Bed: [facility] A Admission Date: 11/26/2023 Visit Date: 11/28/2023 Reason for Endocrine Consult: Uncontrolled T2DM Provider/Team Requesting Consult: Dr. Linda PCP: Ion Williamson DO Outpt Devops: No ASSESSMENT: Uncontrolled T2DM with hyperglycemia S/p GERARDO with BL salpingoophorectomy Morbid obesity Steroid-induced hyperglycemia PLAN: Increase insulin glargine to 20 units Increase meal-time insulin to 7 units ICU goal <180 GMF goal <150 POCT BG [facility] Hypoglycemia management per protocol Carb controlled diet ANTICIPATED ENDOCRINE HOME GOING RECOMMENDATIONS: Optimized for Discharge from Endocrine standpoint: No Home Going Endocrine Rx Recommendations-- Pending Outpt Follow Up-- None SUBJECTIVE/HPI: CHIEF COMPLAINT: No chief complaint on file. Ms. Wesley is a 58yoF with a pmhx T2DM that presented to [facility] 11/25 for GERARDO with BL salpingoophorectomy and Endocrinology following for uncontrolled T2DM with persistent hyperglycemia. Was given 10 units NPH overnight. Evaluated at bedside. No acute complaints. Concerned about her current diet order but reassured that her diet is a diabetic diet. Glucose Date/Time Value Ref Range Status 11/28/2023 07:32 AM 263 (H) 70 - 100 mg/dL Final 11/28/2023 12:46 AM 359 (H) 70 - 100 mg/dL Final 11/27/2023 08:01 PM 308 (H) 70 - 100 mg/dL Final 11/27/2023 04:34 PM 329 (H) 70 - 100 mg/dL Final 11/27/2023 12:17 PM 307 (H) 70 - 100 mg/dL Final 11/27/2023 07:31 AM 328 (H) 70 - 100 mg/dL Final ROS negative except for those mentioned in HPI. OBJECTIVE: Vitals: 11/27/23 1707 11/27/23 2006 11/28/23 0004 11/28/23 0526 BP: 136/70 134/71 133/65 129/76 BP Location: Right arm Left arm Patient Position: Pulse: 98 94 97 86 Resp: Temp: 36.5 ?C (97.7 ?F) 36.9 ?C (98.5 ?F) 36.8 ?C (98.3 ?F) 36.6 ?C (97.8 ?F) TempSrc: Temporal Temporal Temporal Temporal SpO2: 97% 97% 96% 98% Physical Exam Constitutional: General: She is not in acute distress. HENT: Head: Normocephalic and atraumatic. Pulmonary: Effort: Pulmonary effort is normal. No respiratory distress. Skin: General: Skin is warm and dry. Neurological: Mental Status: She is alert. Psychiatric: Mood and Affect: Mood normal. Thought Content: Thought content normal. 24 hour intake/output: Intake/Output Summary (Last 24 hours) at 11/28/2023 0754 Last data filed at 11/27/20232047 Gross per 24 hour Intake 500 ml Out (more content not included)... Normal [facility] Progress Note -- Attestation signed by Robert Bruce MD at 11/28/2023 7:33 AM Patient rounded with residents. Doing well today. Passing gas. Abdomen is slightly more distended but is soft. Continues to have high blood sugars. Endocrinology is working to try to get them under control. A) Hyperglycemia secondary to diabetes Morbid obesity Uterine leiomyoma [employer] [employer] Progress Note Date: 11/28/2023 Time: 6:14 AM Please page the [facility] [employer] Call RES group via Secure Chat for any questions or concerns. Taylor Wesley 58 y.o. female , POD # 2 s/p GERARDO, BSO Patient seen and examined. She voiced concerns about her blood sugar this morning, and would like to talk to diabetes education again about her carb allowance, as it is higher than what she was following at home and she is having a hard time choosing from the menu in hospital. Pain is controlled. Patient is tolerating oral intake. She is urinating. She is passing flatus. She denies Fever/Chills, Chest Pain, SOB, N/V. Vitals: Vitals: 11/27/23 1707 11/27/23 2006 11/28/23 0004 11/28/23 0526 BP: 136/70 134/71 133/65 129/76 BP Location: Right arm Left arm Patient Position: Pulse: 98 94 97 86 Resp: Temp: 36.5 ?C (97.7 ?F) 36.9 ?C (98.5 ?F) 36.8 ?C (98.3 ?F) 36.6 ?C (97.8 ?F) TempSrc: Temporal Temporal Temporal Temporal SpO2: 97% 97% 96% 98% Intake/Output: Current Shift: I/O this shift: In: 500 [P.O.:500] Out: 700 [Urine:700] Physical Exam: Gen: NAD, alert and cooperative HEENT: Normocephalic, atraumatic, EOMI, MMM Resp: CTABL, no WRR Card: RRR, no murmur Abd: soft, NT/ND, no rebound, no guarding Incisions: midline vertical incision C/D/I with steri-strips Ext: No LE edema, no calf tenderness or swelling Medications: Current Facility-Administered Medications: acetaminophen (Tylenol) tablet 1,000 mg, 1,000 mg, Oral, q6h, Lainey Linda DO, 1,000 mg at 11/28/23 0550 albuterol 108 (90 Base) MCG/ACT inhaler 2 puff, 2 puff, Inhalation, q6h PRN, Lainey Linda DO dextrose 5 % infusion, 100 mL/hr, IntraVENous, PRN, Di Duque, dextrose 50 % solution 12.5 g, 12.5 g, IntraVENous, PRN, Di Duque, DO enoxaparin (Lovenox) syringe 40 mg, 40 mg, SubCUTAneous, Daily, Lainey Linda DO, 40 mg at 11/27/23 09 glucagon (human recombinant) injection 1 mg, 1 mg, IntraMUSCular, PRN, Di Duque, DO glucose oral gel 15 g, 15 g, Oral, PRN, Di Duque, DO hydroCHLOROthiazide (HYDRODiuril) tablet 50 mg, 50 mg, Oral, Daily, Lainey Linda DO, 50 mg at 11/27/23 0928 [COMPLETED] ketorolac (Toradol) injection 30 mg, 30 mg, IntraVENous, 4 times per day, 30 mg at 11/27/23 1124 FOLLOWED BY ibuprofen tablet 600 mg, 600 mg, Oral, q6h, Lainey Linda DO, 600 mg at 11/28/23 0550 insulin glargine (Lantus) injection 15 Units, 15 Units, SubCUTAneous, q AM, Chana Horvath, DO Insulin Lispro (Humalog) injection 0-12 Units, 0-12 Units, SubCUTAneous, TID WC, Chana Horvath, DO, 8 Units at 11/27/23 1641 Insulin Lispro (Humalog) injection 5 Units, 5 Units, SubCUTAneous, TID WC, Chana Horvath, DO, 5 Units at 11/27/23 1641 lactated Ringer's (LR) infusion, 50 mL/hr, IntraVENous, Continuous, Isabel Gonzalez APRN - CT, Last Rate: 50 mL/hr at 11/26/23902, Continued by Anesthesia at 11/26/23 0903 naloxone (Narcan) injection 0.4 mg, 0.4 mg, IntraVENous, q5 min PRN, Robert Bruce MD ondansetron ODT (Zofran-ODT) disintegrating tablet 4 mg, 4 mg, Oral, q8h PRN OR ondansetron (Zofran) injection 4 mg, 4 mg, IntraVENous, q6h PRN, Lainey Linda DO oxyCODONE (Roxicodone) immediate release tablet 5 mg, 5 mg, Oral, q4h PRN OR oxyCODONE (Roxicodone) immediate release tablet 10 mg, 10 mg, Oral, q4h PRN, Lainey Linda DO, 10 mg at 11/26/232122 polyethylene glycol (PEG) 3350 (Miralax) packet 17 g, 17 g, Oral, Daily, Lainey Linda DO, 17 g at 11/27/23 09 senna-docusate sodium (Senokot-S) 8.6-50 MG tablet 2 tablet, 2 tablet, Oral, Daily PRN, Lainey Linda, sodium chloride 0.9 % infusion, 5-250 mL/hr, IntraVENous, PRN, Lainey Linda, DO sodium chloride 0.9% (NS) flush 10 mL, 10 mL, IntraVENous, 2 times per day, Laineyjosé miguel Linda, DO, 10 mL at 11/27/232010 sodium chloride 0.9% (NS) flush 10 mL, 10 mL, IntraVENous, PRN, Lainey Linda, DO Diagnostics: POCT glucose meter Result Date: 11/27/2023 Performed by: [facility], [address] [place] [address], [place] [address] CLIA ID: [id number] POCT glucose meter Result Date: 11/27/2023 Performed by: [facility], [address] [place] [address], [place] [address] CLIA ID: [id number] POCT glucose meter Result Date: 11/27/2023 Performed by: [facility], [address] [place] [address], [place] [address] CLIA ID: [id number] POCT glucose meter Result Date: 11/27/2023 Performed by: [facility] (more content not included)... Normal [facility] CARECOORDon 11-27-2023 [facility] Care Managment Initi al Assessment Date: 11/27/2023 Patient Name: Taylor Wesley : 1965 Patient Information Source of Information: Patient Cognition/Language: WFL - Within Functional Limits Permission given to speak with patient hotel services sales representative/caregiv er as indicated: Confirmation of Payer with patient/family: Yes Payer Name: Avani Gonzáles Sentrix : No Confirmation of Primary Care Physician: Confirmed PCP Name: Ion Williamson DO Seen in last 2 years?: Yes Primary Caregiver: Self If assistance needed, confirmed caregiver ready, willing and able to care for patient at discharge: Confirmed with: Living Arrangements Current Residence: House Number of Floors 1 Number of Entry Steps: Bed/Bath Levels: Both first floor Facility: Facility Name: Plan to Return: Lives with: Spouse/significant other Support Systems: Spouse/significant other, Family members, Friends/neighbors Activities of Daily Living Ambulation: Total Care (pt has hemiplegia and CP. uses motorized w/c) Bathing/Dressing: Assistance Elimination/Continence /Toileting: Assistance Feeding: Independent Who Assists with Activities of Daily Living: Pt's spouse, Rayna Instrumental Activities of Daily Living Prescription Coverage: Yes Pharmacy Used: [facility] [address] Medication Management: Independent Transportation/Shoppin g: Independent Transportation Mode: Wheelchair van Needs Assistance with Transportation at Discharge: No (spouse will transport) Meal Preparation: Independent Laundry/Cleaning: Independent Finances/Bill Paying: Independent Communication: Independent Types of Care Services/Equipment Utilized Care Services: Dialysis Type: Durable Medical Equipment: Wheelchair (standard or power), Marquez Lift, Shower Seat DME Provider: Sachin Patient's Goal/Discharge Plan Patient expects to be discharged to: home with spouse Discharge Planning Actions: Continue to follow Patient's Choice Rights and [employer] and Collaborative Relationships Disclosed as Indicated for Post-Acute Care: Interdisciplinary Team Engagement: Social Work Referral for: Additional Information: 58 yo female admitted to with intra-abdominal and pelvic swelling, mass and lump. Pt underwent surgery yesterday, 11/26/23: Total abd hysterectomy and bilateral salpingectomy. Dodson cath to be removed. Advanced to regular diet. Endocrine consult for elevated glucose levels. Pt has hx of hemiplegia and CP. She has been in a w/c since the age of [age]. Met with pt at bedside; explained role of tcc. Pt lives with her spouse, Rayna, who assists pt at home if needed. Pt does use her motorized w/c. She has grab bars, shower chair and marquez lift. Pt to work with PT today. She denies any needs from tcc. Will continue to follow. Akosua Hughes RN Normal [facility] CBC (HEMOGRAM)on 11-27-2023 Erythrocyte distribution width (RBC) [Ratio] 11.9 % Normal 11.5-15.0 [facility] Comment on above: Performed By: #### L [id number] #### Irrigation Equipment Mechanic: VICKY GARCIA ([id number]) [facility] ([facility]) [address] [place] [address] Hematocrit (Bld) [Volume fraction] 37.8 % Normal 35.0-47.0 [facility] Comment on above: Performed By: #### L [id number] #### Irrigation Equipment Mechanic: VICKY GARCIA ([id number]) [facility] ([facility] [address] [place] [address] Hemoglobin (Bld) [Mass/Vol] 12.7 g/dL Normal 11.7-16.0 [facility] Comment on above: Performed By: #### L [id number] #### Irrigation Equipment Mechanic: VICKY GARCIA ([id number]) [facility] ([facility]) [address] [place] [address] MCH (RBC) [Entitic mass] 29.1 pg Normal 26.0-34.0 [facility] Comment on above: Performed By: #### L AB294 #### Irrigation Equipment Mechanic: VICKY GARCIA ([id number]) [facility]) [address] [place] [address] MCHC 33.6 % Normal 30.5-36.0 [facility] Comment on above: Performed By: #### L AB294 #### Irrigation Equipment Mechanic: VICKY GARCIA ([id number]) [facility] ([facility]) [address] [place] [address] MCV (RBC) [Entitic vol] 86.7 fL Normal 77.0-99.0 [facility] Comment on above: Performed By: #### L [id number] #### Irrigation Equipment Mechanic: VICKY GARCIA ([id number]) [facility] ([facility]) [address] [place] [address] Platelet mean volume (Bld) [Entitic vol] 10.2 fL Normal 9.0-12.7 [facility] Comment on above: Performed By: #### L AB294 #### Irrigation Equipment Mechanic: VICKY GARCIA ([id number]) [facility] ([facility]) [address] [place] [address] Platelets (Bld) [#/Vol] 306 10*3/uL Normal 140-440 [facility] Comment on above: Performed By: #### L AB294 #### Irrigation Equipment Mechanic: VICKY GARCIA ([id number]) [facility] ([facility]) [address] [place] [address] RBC (Bld) [#/Vol] 4.36 10*6/uL Normal 3.80-5.20 [facility] Comment on above: Performed By: #### L AB294 #### Irrigation Equipment Mechanic: VICKY GARCIA ([id number]) [facility] ([facility]) [address] [place] [address] WBC (Bld) [#/Vol] 13.5 10*3/uL High 3.6-10.7 [facility] Comment on above: Performed By: #### L [id number] #### Irrigation Equipment Mechanic: VICKY GARCIA ([id number]) [facility] ([facility]) [address] [place] [address] CBC panel Auto (Bld)on 11-26 Erythrocyte distribution width (RBC) [Ratio] 11.9 % 11.5 - 15.0 % [facility] Hematocrit (Bld) [Volume fraction] 37.8 % 35.0 - 47.0 % [facility] Hemoglobin (Bld) [Mass/Vol] 12.7 g/dL 11.7 - 16.0 g/dL [facility] Interpretation and review of laboratory results Abnormal [facility] MCH (RBC) [Entitic mass] 29.1 pg 26. 0 - 34.0 pg [facility] MCHC (RBC) [Mass/Vol] 33.6 % 30.5 - 36.0 % [facility] MCV (RBC) [Entitic vol] 86.7 fL 77.0 - 99.0 fL [facility] Platelet mean volume (Bld) [Entitic vol] 10.2 fL 9.0 - 12.7 fL [facility] Platelets (Bld) [#/Vol] 306 10*3/uL 140 - 440 10*3/uL [facility] RBC (Bld) [#/Vol] 4.36 10*6/uL 3.80 - 5.2 0 10*6/uL [facility] WBC (Bld) [#/Vol] 13.5 10*3/uL High 3.6 - 10.7 10*3/uL [facility] Consulton 11-27-2023 Consult -- Attestation signed by Chung Miner MD at 11/27/2023 2:33 PM (Updated) I have personally performed a face to face diagnostic evaluation on this patient. In addition, I have reviewed the resident's/SED SPECIAL EDUCATION TEACHER/KETTLE HAND's care plan and agree with those findings I have performed a substantive portion of the the medical decision making. My findings are as follows: Patient status post GERARDO Received dexamethasone 4 mg yesterday Blood glucose readings are in the 300s Patient's diabetes was not controlled before surgery She has type 2 diabetes for 2 years Did not tolerate metformin She is on glimepiride that was recently increased by her primary care to 4 mg twice a day She has a glucometer at home and reported her blood glucose readings are in the 200s Has not been consistent with at good diet regimen lately Had COVID few months ago Has cerebral palsy Vitals: BP 157/88 (BP Location: Left arm, Patient Position: Sitting) Pulse 93 Temp 36.9 ?C (98.5 ?F) (Temporal) Resp 19 LMP 11/19/2023 (Exact Date) Comment: random bleeding SpO2 97% Constitutional: Well developed Eyes: Conjunctiva clear, Pupils equal Neck: No masses, No thyromegaly Respiratory: No respiratory distress Cardiovascular System: No lower extremity edema Abdomen: obese Psychiatric: Conscious, alert, oriented to time, place and person A/P Type 2 diabetes with hyperglycemia without long-term insulin use Status post total abdominal hysterectomy Morbid obesity Steroid-induced hyperglycemia: Patient received dexamethasone 4 mg after surgery Start Lantus 15 units every morning and Humalog 5 units before meals with correction Obtain blood glucose readings before meals and at bedtime Carb controlled diet Treat hypoglycemia per protocol Target BG on General floors: FBG <140 and random BG <180 Target BG for ICU <180 Patient was counseled about the importance of diabetes management. Patient was counseled about the importance of following a healthy diet and exercise. Patient was counseled about hypoglycemia symptoms and management. For discharge discussed with patient the option of basal insulin and GLP-1 receptor agonist The plan is to discharge patient on Basaglar plus Ozempic Will have patient also on Dexcom G7 Patient was counseled about benefits and side effects related to Ozempic Discussed with certified phlebotomy technician to teach patient how to use insulin and to apply Dexcom G7 Discontinue glimepiride after discharge I spent 75 minutes with the pt which involved in coordination of care, medical evaluation, review of records, and/or counseling of the pt regarding his/her condition/disease state/prognosis on the date of this note. Old records including available PCP, ED notes and or other specialists notes are reviewed. LABs and/or imaging are reviewed as detailed in the resident's/SED SPECIAL EDUCATION TEACHER/KETTLE HAND's note Department of Internal Medicine Division of Endocrinology, Diabetes, & Metabolism Endocrinology Note Patient Name: Taylor Wesley : 1965 AGE: 58 y.o. Room[facility]: [facility] Admission Date: 11/26/2023 Visit Date: 11/27/2023 Reason for Endocrine Consult: Uncontrolled T2DM Provider/Team Requesting Consult: Dr. 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 Type of DM: 2 Onset of DM: 2 years ago Home DM Medication Regimen: glimepiride 2mg bid DM control (last A1c/glucose data): 10.6 Ms. Wesley is a 58yoF with a PMHx T2DM, cerebral palsy c/b paraplegia (wheelchair bound) that presented to [facility] 11/25 for GERARDO with BL salpingoophorectomy. Tolerated procedure well. Noted to have persistent hyperglycemia in the 300s despite SSI and home glimepiride, however, so Endocrinology consulted for management. Evaluated patient at bedside. Reports diabetes onset 2 years ago. Managed by PCP. Initially trialed on metformin, but patient did not tolerate. Already struggles with diarrhea chronically and the metformin sent her over the edge. Switched to glimepiride 2mg bid and has been on since. Checks sugars every mor (more content not included)... [facility] Laboratory - Chemistry and C hemistry - challengeon 11-27-2023 Glucose [Mass/Vol] 308 mg/dL High 70 - 100 mg/dL [facility] Glucose [Mass/Vol] 329 mg/dL High 70 - 100 mg/dL [facility] Glucose [Mass/Vol] 307 mg/dL High 70 - 100 mg/dL [facility] Glucose [Mass/Vol] 328 mg/dL High 70 - 100 mg/dL [facility] No Panel Informationon 11-26 Interpretation and review of laboratory results Abnormal [facility] Performed by: [facility], [address] [place] [address] CLIA ID: [id number] [employer] Interpretation and review of laboratory results Abnormal [facility] Performed by: [facility], [address] [place] [address] CLIA ID: [id number] [facility] [employer] Interpretation and review of laboratory results Abnormal [facility] Performed by: [facility], [address] [place] [address] CLIA ID: [id number] [employer] Interpretation and review of laboratory results Abnormal [facility] Performed by: [facility], [address] [place] [address] CLIA ID: [id number] [employer] No Panel InformationOrdered By: Pineda Hanson on 11-27-2023 Case Report Non-Gynecologic Cytology Case: [id number] Authorizing Provider: Robert Bruce MD Collected: 11/26/2023 0928 Ordering Location: [facility] MAIN OR Received: 11/26/2023 1405 Pathologist: Pineda Hanson MD Specimen: Peritoneal Washings, PELVIC WASHINGS [facility] Phone: Case Screening Location [facility], [address] [facility] [address]; CLIA: [id number]; Joint Commission: [id number] [id number]; CAP: [id number] [facility] [place] Phone: Comment z8ihpHYwGBJasCUzOOxw NF vpazHsUDGloUNsI0Abvtrn TNkzCA1xKU6zjQfmzCJclA OdBCDxTrFhr9kgm877lDDk i9ifJEBNJAlnUTZSNPq3zO kxC86df5K3FipvX01zvXPk RTR8IRXwXDMxcAIaPOTjMC S6WSZfrAKvL6uqSSXfLK3b anzhZTcfHUykQKRzqNA2HI AupHCdB2DbZPInKPhuREXj ahi6LoNaVh5uiKNrkPtsFY xwYXJkXHBsYWluXGZzMjAg ARJUWSIUS76ABPFDHLRKUI NBTCBDQVNFUyBFWElTVCBG G7BjUZwEBfKQJV7NGOYIWA IgW7CzT7DFSzgSKNamQYIu cGFyZFxwYXJ9 [facility] [place] Phone: Disclaimer f5lxwKQmJXMzoJWdXoLt QuHVNxs9nxZFVnlEYwXcAw MzNcZnRuYmpcdWMxXGRlZm Jqq0kfx405hOSco5fjUBAq EbY0bBZfQNIxQ42xVQTUX4 02JDJeWAvik1jhg4IgGJFq jMWrp6J5NFPSQUhnEZUDBR q5zEfmM99oe3N8XrajX5bx ZBPpZMMuH5ZtSW0kNAAdCm z0PST4XWM1FBDiHBCiA9Zj FO5rNHHyoDVkWWi2z8aeoI xtOPQgVVL9u1ffYRrdozXg HI8klu4lqBm7h2bizgFaRS FgZUTriWXSOSTcB1MsfOrn Kn8zaNj0rYzdGlbyBEB7Rk t4CP4hox91thj0xEanODKq aditGmQ8LZqwFCYltikxHU g7GIfgUAFxwHO4SKEifDZj Y4KtXPFpJV6ihug0KXT6EZ maFDPiYtE7GJVewUGrGGKm oDtoHAtfa721NUD6SxUtJL 8fB2Eon5X0gI7zbNOwHHGj vBJbPxBfQMKjhf1ovFWhNE jio5PdNOG0uqH4zGZsyLDo MXGoVE24Iuklm8YpLquiMR P6GHZhiaMjj4Gie3aeLmXu gjUgU0lsQ6JwPLLeAUPbOL HcIuFzbgYov9Jqz8WweUUf gHw6f1snEDQhJXWziUdpl4 tkUYU3ZZMoD5M8yLPsd6si JCjeJVCrwDD9zjI1DWIrjQ CeC6XfrQ5gYKOiKV5lwiz6 o3xrSCC5FZdtNYThYhN2ot X5TGHtyDKqKUMvyYtkUKul e459IUD1NjQeMXGmd6KzP6 AssOcqA74ygMeqA83cOTIk jAjvdX6vhDvzhT3eQfIbEx MyNFxxbFxwbGFpblxmMVxm dqJ4MZywdneuLXOkXRuyP9 wpZeAvZJLcnFcdABnda8Sf KXXnPIRgDYXyENejH5kqqQ 8hyrhcWEblDFFtvQgol4qd IkZbcME9JW5vtfBpCEXwwH xhlaA3vaOjtWlwpP6hyY8r gVjgmP7iiMCyuRA1qtgjGA luIHNpdHUgaHlicmlkaXph wKsdssjvjK5vZZT4pYFgYO T3jOVcJQGcPFDdQDNamY55 jj8ubEOoteVwF9OiO3YyqF PszSxiLfhrfHMyiYZbZl4i sVBhFV7xOCYlrAAcK3GtIA 4gXHBhclxwYXIgVGhlIHVz PHQtBjNveuIon6OjpI6hJK LaUJSpYD40oeMuqlF5iPLy YWJvdmUgdGVzdHMgaXMgcm VndWxhdGVkIGFzIGFuIGFu OZe8pCSrp1InO2exdHJttt XzI6SnwUKgMMBDXO9fHKjv m5DbbDRqlKXir0OjCBZtLY DizA1qCJOhJL9bAGXpVLvn HFAjugJqbb7jgtCbPXNeQU FrT6PfdqyknRnxbfUuTJHt fz1ikoUyVXP3UAHqGBSgnR qyeIHchOCsCPRtipP5y7Xv QDTzt0VcW3PqeYRmGMClqG XcXAW7y9GcxI6aBWrqlICq LHHmQF4zhBMiLORhBDZoXR FyZWQgYnkgdGhlIFVTIEZv o5XmXL8sYCBmqWubMILtnM 8zn7ShKSHuk16aUUOVLEoe IFRoZSBGREEgaGFzIGRldG VybWluZWQgdGhhdCBzdWNo AJGfBGCnTK9tBCNierHpdM Qsz1QuzUFcxnZpu5DkihPa CBUwRZK3TdNaqLEzBYPvvv DQoEfskJ7bsS8dx7TojS8a SXflufVqgWDqYw4cmZEyCW 9uIHBhcmFmZmluIGVtYmVk PMCkWJEyx0L7OX0aJOHrrw 2zygeflSYsgA2dkFYgtdBz DR4pDI7oF2G9wDAlTMYxlo Yvu0ueSDp5xFBcGIKyuPMy dIXiBgwbLPU3PJGfFSA6nx LbnjVoQQUsoFhrdPX9oGAh PEYpNWWzLHHsII84U7Xcl9 ExE9xnNY30RUNdTMWmXALn aqZei9hpPNEwm8abEBPrwN HpX3WbNMTgvXKdbeygYaOb TLG9AKQqLFT4vUNsVOMyT1 AbyABhzPRriV79QK2ppWV9 DG8bHWJ3SWzghT2tNgRBtK 97uq1lnIU5c0KsFC8eP8Lq UXOmo6V3nbKyYXKfYN3sxK BiZWVuIHZhbGlkYXRlZCBv nxQuFYDrmFDaZracPFQ9qF LngVYaWlTPHZT1oIJuNHHv c9DoQHSiNJUencWygyYyWR UkMHQ6lPUxCAQuwZJig01m N8e5CO9geVkbXAYyeSReIT Msj2QpeQAjtZr1dXAeQiAf RMrwZZAzONbbsXc2jRU1IP 0fRMLuC5XkW1qszQGaUAQg OSFfoONbbk0juAGlnS== [facility] Work Phone: Gross Description m9ahpTFrCYLdfYQEUUM4 MD FcCZ0lgLsbuOd3uSlxABKd ggZ6nDGxJVanu2tfYSQ9l8 njfjSXJvchKWBjXQ2gQClt CYGwCU9cPgDhEKWiUlJzVO BhcGVydzEyMjQwXHBhcGVy tDN0ODUvGL1zzwphDJeaYU pmFTEjufI0OAKokDCzS1Og JYTcNO1jyyutBBZ3JQFRZa qhVr3hcPEpkWGFBeksElYt YuEgDOTwYIAgWEPne3xzwp XEixvvbRw7AFh3JATnMKBf vUHsx9N3JNapp2mxu5BuZ4 Pow0SbQLp7dJ5IYwwoD02j x6V4Jwf7BMUuHSr9IOtrDS NlANBlNbd2BWp4J8xiUYBt TEcqELRrGNbegWUkDCp1TQ kbr4MirUMxWNa2LFtgSQPa F9AnB6LvXSutIgXfXHfjNQ ZaQQIfUXqxFVHjC2WWRXDc CXL2YXV9YoVvMDf1IBtbDx YTALB1CgC2QuA2SSl9KCUj VR8eWXngaHWfPYcqQlpeKE dnA441VMtuSWWzX3PoO3Ry XFxzZyBcXGlkIDUxMDAyIF zcZOVhG7OBWVHyLLU0WVN7 KyGnGMc3TSybM0GVOEOiGP RuLXLlEtErWlY7TLk9HRMX Eh6eViU6DSLlXpW5TKU8GD JfNRiyipozRJz0JVGnCIon wgTdBHddDupzUMqfR28eiY FyZCANClxwbGFpblxlcGlj TmVzdERvYzEgDQpcbHRycG NrYB0PVIi8prMvFXBcZJhj gzFdALOjBYVHLEGvnZ0uOR LpTSgpb5jsuxojWdokMjUj ICLzqTRyWQ9EPFSchOgmUK Lnd1NbS8G9ZKOaFFpbm2ei QTMvUHasi5NrLVlPMQNSCS 3FRF0pxGW1HTtKTTXCK0eI qQLpDYIfD7fywXU3f2jcrH Goo0q8CWtrLNB6jUTdf4Gv yLzuOvgaaZE2AUazZqcnwR 5zdCBIWVBFUkxJTksgbmFt LR5VZGSESC2CsTXnUNFbB2 sbjPI5d0nwkLBsx2z9FWuh VMZ6oFcsmRHpszllvIMnkM xmczIwICBccHJvdGVjdHtc WahjdNF5ZUrnPiqlqK8wdY PEMDWCUsaJCelaorFdUN6P BRDFRpABQV29GIB8JTD8aX H5Ir80ZUCaROMbrBFwQUai A160qGhlm3umRceyrKY7GW vpTlrjzJ8sjXVBPXJCGpzP FltftxQhYF4YWIYYDQ7BfT EgDPTtDBwmeHI4l6ewjIBc m0n9PHkiFOJ8fRfslTHkyk xsdHJjaFxmczIwICBmbHVp ZCByZWNlaXZlZCBccHJvdG OgcSozHozlfKR2TJwyCnqs uO6tkWSMZSDMLztSMshwqd FbKS9KUJDTWrXOKT86LIT8 PLA9pIC4O024ROKyWLYulU ZzSPuuT006dE8wH0s6q4a4 yUjlNvxulHM6GTbmHhxzmK 5zdCBIWVBFUkxJTksgbmFt OQ3FITHZQZ5BeOZuSXCbVV ucrXP2e3gpfMTmz4m5TJle HQA9aWufxLCpsmuliNCzoF ltbkCcXX7iMDSdqiRFPhzf XGNmMiBNYXRlcmlhbHMgUH AoyRUnWXK2SGAwFDBhVNEf DQEntM2LzuGcEZIwERRoXD PhiIxsXckfJ4facacgvHEe LG7PLXKsnkUOFmilChunvx IyXHBhciANClxzYTMwXGVw fLAHq8FgZSNAMez4FMMDYG PUWOtZHZ1TVRJWYYZAAR7J VPeDXgGvNVmbKdG8XW7jXj ScKBAqNWkcLUflSJB5TRM2 yUF1RMXVNZKEEUsQC3CtHY YHGEBOEFRhTQ1NEEvQIKLT UDYYW19WENNYBYTJB0WFB4 dSZVzEWBHVUNFNL68TNFZL UIMJF1KATLNGNRLHCRiVDE ADIz4ORZTMUBWFJD0MNPnQ DsDvXAjEI10nC8nHGFVGJh UKB1KTLhJZPaEsHYSgS3l9 Xxw5Zz6ZDOtFSbVFS7eJDa mmHNpdRkLwuCVgs7K9lC0d r7c2SZAktBL1xXCjGyKnSV YvMLa9XKHUJCJHGK8BQHUU F62ILCRTRGJQN0TCCZMURr ABDVQFP14WBOZLOATHV5TL P3nAFNRFUrJAMHIBL64RMM UMEAAAX9FXKLLFXADFAjVD PgSECW3OOLVTDJGUGQ9TXA pNRfKnBIRSQ4GGDaMMH0tc IWLYGVXGKOWxWV3BFBmmkl ZuPXKrW68sz7USr7Vib6co zDqne9HdqEAuRZ15TVYnsS QqUNK2EW7tsUcgHLZgFWrm cGFyZCANClxwbGFpbiANCn 0= [employer] Phone: Pathologist Interpretation Location [facility], [address] [place] [id number]; CLIA: [id number]; Joint Commission: [id number] [id number]; CAP: [id number] [facility] [place] Phone: Pathology report final diagnosis Narrative h4lfoOCoWKMmcLKuLUtkNC tvkjNnHXFisSGbK7Urseap ORieYI7aAT2ioUnptJUjzC GwUCLgKaVrv5kgt631eASb f4vtCSDCRMloOSQWIIf2fK jaI12si6I2XwoqJ5rsEKT4 QKccxlVwluc9BCBbmLV2AT h0ZRCwrZFumrCcKhGhHWXh jBKvuZD6SFLxHB3tcaobPG oeYIxfQDWdnbA7AQWvaHFs V6KzLDMwGE7kmuhnYTX5YQ sxYJCvZNZ5CuUiBTZsx1Nr ryv5BoVvxWIwIBjcaTEiij xmczIwXGNmMSBBICAtIFBl jXXiVyFCXIVnkB5cgdSoYB ner7edbrzwDXS7wB6sl0m6 ZxzrRvRqMTYoqEFdGD1HTV 1BTElHTkFOVCBDRUxMUyBJ REVOVElGSUVELlxwYXJccG FyZFxwYXJ9 [facility] [employer] Work Phone: [facility] Work Phone: Progress Noteon 11-27-2023 Progress Note PHYSICAL THERAPY [facility] Treatment Note Name/MRN: Taylor Wesley ([id number]) Date of : 1965 Age: 58 y.o. Room[facility] A Discharge Recommendation: Home with assist PRN, Home with Home health PT Equipment Needed: No Other: She has her electric wheelchair here at the hospital. Prior Level of Function ADL Assistance: Needs Assist Ambulation Assistance: Device(s) used: Wheelchair - electric Transfer Assistance: Needs Assist Assessment Patient was up in her own wheelchair for over an hour. She is ready to get back to bed. She had a block, so the transfers today are not painful. She helps guide this PT through the process of getting her back in the bed. Her electric wheelchair was returned to across the room. Patient is slow moving, and less familiar since she is in the hospital, but does get her transfers done with moderate assist. She was back in the bed at the end of the transfer, and made comfortable in the bed. Recommend home with assist upon discharge, and home PT. Subjective Pt is cooperative and pleasant. Pain: Pt denies any current pain. Medical Precautions: No active isolations Proper PPE donned/doffed in accordance with facility standards. Fall Risk: Baxter Fall Risk Score: 55 (High Risk) Precautions/Restrictio ns: Fall Precautions Overall Cognitive Status: WNL Overall Orientation Status: Oriented x4 Family/Caregiver Present: none Objective Bed Mobility Sit to supine: Mod Assist Rolling to left: Min Assist Scooting: Mod Assist Transfers/Mobility Bed to chair: Mod Assist Extra time. Device(s) used: Wheelchair - electric Balance During Session: Posture: good Sitting - Static: Independent Sitting - Dynamic: Modified Independent Standing - Static: NA Standing - Dynamic: N/A Plan Continue acute PT per plan of care. Safety/Education Safety Safety Devices in place: call light within reach, left in bed, patient at risk for falls, and nurse notified Restraints: No Education Education Given To: patient Education Provided: PT Role, Transfer Training, and Discharge Recommendations Education Method: Verbal Barriers to Learning: None Education Outcome: Demonstrated Understanding Outcome Measures AM-PAC AM-PAC Inpatient Mobility Raw Score (No Stairs) : 10 JH-HLM JH-HLM Score: Transferred to chair/commode Goals Patient Stated Goal: To return home, back to work. Encounter Problems Encounter Problems (Active) Mobility Patient will navigate as needed within the hospital feet with modified independence and electric wheelchair in order to improve safety and independence with mobility. (Progressing) Start: 11/27/23 Transfers Patient will perform bed mobility with min assist in order to improve independence and prepare for out of bed mobility. (Progressing) Start: 11/27/23 Patient will complete functional transfer with least restrictive device with mod assist in order to prepare for ambulation. (Progressing) Start: 11/27/23 Therapy Time Individual Co-treatment Time In 1530 Time Out 1545 Minutes 15 Timed Code Treatment Minutes: 29 Minutes Di Anaya PT Normal [facility] Progress Note Patient was evaluate d this afternoon with RN from endocrinology at bedside assisting with Dexcom. BGTs today remain >300. She was sitting in a chair, first time being out of bed since surgery and it felt good. She had no acute complaints. She denies Fever/Chills, Chest Pain, SOB, N/V. Pain is well-controlled. She reports minimal bleeding when dodson catheter was removed this morning, unsure if it was vaginal or urinary. She is passing flatus. She had no questions or concerns. BP 145/83 (BP Location: Left arm, Patient Position: Lying) Pulse 99 Temp 36.4 ?C (97.5 ?F) (Temporal) Resp 16 Ht 5' 4 (1.626 m) Wt 130 lb (59 kg) BMI 22.31 kg/m? Physical Exam: Gen: NAD, alert and cooperative Resp: No increased WOB Card: Regular rate Ext: No LE edema, no calf tenderness or swelling A&P: Continue inpatient management Normal [facility] Progress Note -- Attestation signed by Robert Bruce MD at 11/27/2023 7:14 AM Patient rounded with residents. Discussed surgical findings. Hemoglobin level stable. Pain well-controlled. Still dealing with hyperglycemia. Will ask endocrine to get involved to decrease hyperglycemic status. A) Hyperglycemia associated with diabetes Morbid obesity Uterine leiomyoma [employer] Progress Note Date: 11/27/2023 Time: 6:11 AM Please page the [facility] [employer] Call RES group via Secure Chat for any questions or concerns. Taylor Wesley 58 y.o. female , POD # 1 s/p GERARDO, BSO Patient seen and examined. She has no complaints this AM. Pain is controlled. Patient is tolerating oral intake. Dodson catheter remains in place. She denies any vaginal bleeding. She is not yet passing flatus. She denies Fever/Chills, Chest Pain, SOB, N/V. Vitals: Vitals: 11/26/23 1713 11/26/23 2100 11/27/23 0038 11/27/23 0530 BP: 148/91 119/74 137/74 134/71 BP Location: Left arm Left arm Left arm Patient Position: Sitting Lying Lying Pulse: 108 102 103 93 Resp: Temp: 36.3 ?C (97.3 ?F) 36.8 ?C (98.2 ?F) 36.5 ?C (97.7 ?F) 36.5 ?C (97.7 ?F) TempSrc: Temporal Temporal Temporal Temporal SpO2: 94% 96% 94% 92% Intake/Output: Current Shift: I/O this shift: In: - Out: 1500 [Urine:1500] Physical Exam: Gen: NAD, alert and cooperative HEENT: Normocephalic, atraumatic, EOMI, MMM Resp: CTABL, no WRR Card: RRR, no murmur Abd: soft, NT/ND, no rebound, no guarding, present BS Incisions: Vertical midline incision with bandage, small area of dried blood in center but otherwise clean and dry Ext: No LE edema, no calf tenderness or swelling Medications: Current Facility-Administered Medications: acetaminophen (Tylenol) tablet 1,000 mg, 1,000 mg, Oral, q6h, Lainey Linda DO, 1,000 mg at 11/27/23 0549 albuterol 108 (90 Base) MCG/ACT inhaler 2 puff, 2 puff, Inhalation, q6h PRN, Lainey Linda DO ceFAZolin in dextrose 4% (Ancef) IVPB 2,000 mg, 2,000 mg, IntraVENous, q8h, Lainey Linda DO, Last Rate: 0 mL/hr at 11/26/232150, 2,000 mg at 11/27/23 0549 dextrose 5 % infusion, 100 mL/hr, IntraVENous, PRN, Di Duque, DO dextrose 50 % solution 12.5 g, 12.5 g, IntraVENous, PRN, Di Duque, DO glipiZIDE (Glucotrol) tablet 5 mg, 5 mg, Oral, BID AC, Camelia Mcdaniel, DO, 5 mg at 11/26/232120 glucagon (human recombinant) injection 1 mg, 1 mg, IntraMUSCular, PRN, Di Duque, DO glucose oral gel 15 g, 15 g, Oral, PRN, Di Duque, DO hydroCHLOROthiazide (HYDRODiuril) tablet 50 mg, 50 mg, Oral, Daily, Lainey Linda DO HYDROmorphone (Dilaudid) injection 0.25 mg, 0.25 mg, IntraVENous, q3h PRN OR HYDROmorphone (Dilaudid) injection 0.5 mg, 0.5 mg, IntraVENous, q3h PRN, Lainey Linda DO ketorolac (Toradol) injection 30 mg, 30 mg, IntraVENous, 4 times per day, 30 mg at 11/27/23 0549 FOLLOWED BY ibuprofen tablet 600 mg, 600 mg, Oral, q6h, Lainey Linda DO Insulin Lispro (Humalog) injection 0-18 Units, 0-18 Units, SubCUTAneous, TID WC, 15 Units at 11/26/23 1700 AND Insulin Lispro (Humalog) injection 0-18 Units, 0-18 Units, SubCUTAneous, Nightly, Di Duque, DO, 12 Units at 11/26/238 lactated Ringer's (LR) infusion, 50 mL/hr, IntraVENous, Continuous, Isabel Gonzalez APRN - SUPERINTENDENT AUT[employer]OT[employer], Last Rate: 50 mL/hr at 11/26/23 09, Continued by Anesthesia at 11/26/23902 naloxone (Narcan) injection 0.4 mg, 0.4 mg, IntraVENous, q5 min PRN, Robert Bruce MD ondansetron ODT (Zofran-ODT) disintegrating tablet 4 mg, 4 mg, Oral, q8h PRN OR ondansetron (Zofran) injection 4 mg, 4 mg, IntraVENous, q6h PRN, Lainey Linda DO oxyCODONE (Roxicodone) immediate release tablet 5 mg, 5 mg, Oral, q4h PRN OR oxyCODONE (Roxicodone) immediate release tablet 10 mg, 10 mg, Oral, q4h PRN, Lainey Linda DO, 10 mg at 11/26/232122 polyethylene glycol (PEG) 3350 (Miralax) packet 17 g, 17 g, Oral, Daily, Lainey Linda DO senna-docusate sodium (Senokot-S) 8.6-50 MG tablet 2 tablet, 2 tablet, Oral, Daily PRN, Lainey Linda, DO sodium chloride 0.9 % infusion, 5-250 mL/hr, IntraVENous, PRN, Lainey Linda, DO sodium chloride 0.9% (NS) flush 10 mL, 10 mL, IntraVENous, 2 times per day, Lainey Linda, DO sodium chloride 0.9% (NS) flush 10 mL, 10 mL, IntraVENous, PRN, Lainey Linda, DO Diagnostics: POCT glucose meter Result Date: 11/26/2023 Performed by: [facility], [address] [place] [id number] CLIA ID: [id number] POCT glucose meter Result Date: 11/26/2023 Performed by: [facility], [address] [place] [address] CLIA ID: [id number] POCT glucose meter Result Date: 11/26/2023 [facility]formed [facility]: [facility], [address] [place] [id number] CLIA ID: [id number] POCT glucos (more content not included)... Normal [facility] IDNon 11-26-2023 IDN The patient is Moderately Unstable - Medium risk of patient condition declining or worsening The patient's goals for the shift include pain management, absence of muscle rigidity. The clinical goals for the shift include maintain patency of urinary catheter. Over the shift, the patient did not make progress toward the following goals. Barriers to progression include decreased appetite. Recommendations to address these barriers include nutritional consult. Normal [facility] Laboratory - Chemistry and C hemistry - challengeon 11-26-2023 Glucose [Mass/Vol] 321 mg/dL High 70 - 100 mg/dL [facility] Glucose [Mass/Vol] 356 mg/dL High 70 - 100 mg/dL [facility] Glucose [Mass/Vol] 313 mg/dL High 70 - 100 mg/dL [facility] Glucose [Mass/Vol] 321 mg/dL High 70 - 100 mg/dL [facility] Glucose [Mass/Vol] 270 mg/dL High 70 - 100 mg/dL [facility] No Panel Informationon 11-25 Interpretation and review of laboratory results Abnormal [facility] Performed by: [facility], [address] [place] [id number] CLIA ID: [id number] [facility] Interpretation and review of laboratory results Abnormal [facility] Performed by: [facility], [address] [place] [address], [facility] [address] CLIA ID: [id number] [facility] Interpretation and review of laboratory results Abnormal [facility] Performed by: [facility], [address] [place] [address], [facility] [address] CLIA ID: [id number] [facility] Interpretation and review of laboratory results Abnormal [facility] Performed by: [facility], [address] [place] [address], [facility] [address] CLIA ID: [id number] [facility] Interpretation and review of laboratory results Abnormal [facility] Performed by: [facility], [address] [place] [address], [facility] [address] CLIA ID: [id number] [facility] Nursing Noteon 11-26-2023 Nursing Note Report called to REMEDIOS Torres [facility] Op Noteon 11-26-2023 Op Note Date: 11/26/2023 Location: [facility] OR Name: Taylor Wesley, : 1965, Diagnosis Pre-op Diagnosis * Intra-abdominal and pelvic swelling, mass and lump, unspecified site [R19.00] Post-op Diagnosis * Intra-abdominal and pelvic swelling, mass and lump, unspecified site [R19.00] Procedures TOTAL ABDOMINAL HYSTERECTOMY BILATERAL SALPINGO OOPHORECTOMY 93326 - DE TOTAL ABDOMINAL HYSTERECT W/WO RMVL TUBE OVARY Surgeons * Robert Bruce - Primary Procedure Summary Anesthesia: General ASA: III Estimated Blood Loss: 150 cc Drains: Urethral Catheter Straight-tip (Active) Specimens ID Source Type Tests Collected By Collected At Frozen? Priority Lab ID 1 Peritoneal Washings Wash NON-GYNECOLOGIC CYTOLOGY Robert Bruce MD 11/26/23 0928 No Description: PELVIC WASHINGS 2 Uterus Tissue TISSUE EXAM Robert Bruce MD 11/26/23 1006 No Routine Description: UTERUS CERVIX BILATERAL FALLOPIAN TUBES AND BILATERAL OVARIES AND PORTION OF OMENTUM Staff: Supervising Appraiser: Emily Arana RN Scrub Person: Ana Madrigal RN [place] to Circ: Shoshana Ocampo Sugical Evp Sales Student: Katie Levine Findings: large fibroid Complications: None; patient tolerated the procedure well. Specimens Collected: Order Name Source Comment Collection Info Order Time POTASSIUM WITH MG REFLEX For patients on dialysis to draw potassium day of surgery 11/26/2023 8:23 AM PROTHROMBIN TIME If patient on coumadin within 4 days prior. 11/26/2023 8:23 AM HCG QUALITATIVE URINE Urine, Clean Catch Discontinue this order if: 1. patient is older than 55 years old 2. has had a prior hysterectomy 3. today's surgery is for treatment of known or suspected ectopic or loss. 4. patient has a known intrauterine but this is a needed surgery. 11/26/2023 8:23 AM NON-GYNECOLOGIC CYTOLOGY Peritoneal Washings Collected By: Robert Bruce MD 11/26/2023 9:28 AM TISSUE EXAM Uterus Collected By: Robert Bruce MD 11/26/2023 10:07 AM Wound Class: Class II: Clean-Contaminated Blood Products: None Prophylactic Antibiotics: Procedure appropriate prophylactic antibiotic(s) given within 1 hour of surgical incision (two hours if receiving Vancomycin or flouroquinolone) [facility] Op Note Date of surgery 11/26/2023 Preoperative diagnosis pelvic mass Morbid obesity postoperative diagnosis Uterine tumor of uncertain malignant potential Uterine leiomyoma Procedure GERARDO/BSO with omentectomy Surgeon Teo anesthesia General Description of operation patient identified brought to the operating room and after ministration general anesthesia underwent abdominal perineal vaginal prep and drape a Dodson cath was placed in the bladder compression stockings on a running. Mass performed antibiotics were given. Using a scalpel a midline incision was made sharp divided down through the skin around the umbilicus. Bovie cautery was used to coagulate and divide subcutaneous tissue as well as the fascia. The Jann wound retractor was then placed. The omentum was very densely adherent to the uterus in multiple places. Using the Enseal device several portions of the omentum was removed along with the uterus. Several other adhesions were sharply lysed. The right pelvic sidewall was open the right ureter identified the right ovarian vessels were skeletonized above the ureter coagula the Enseal device and divided the round ligament was coagulated and divided. Similar dissection then repeated on the left side. The bladder was then dissected inferiorly allowing the uterine vessels to be skeletonized clamped cut and tied with curved Sravani's and 0 Vicryl suture transfixion. Cardinal ligaments were serially clamped cut and tied using straight Zeppelin's and 0 Vicryl transfixion suture. The vagina was then opened using the right angle scissors, the uterus cervix tubes ovaries and portion of omentum handed off the field angle sutures were placed in the vaginal cuff followed by interrupted 0 Vicryl [id number]'s in the vagina. Hemostasis was noted pelvis irrigated all incisions were accounted for fascia was then closed using a running #1 PDS in a loop mass closure system followed by subcutaneous interrupted #1 PDS subcutaneous interrupted 3-0 Vicryl in a running 3-0 Monocryl on the skin with Steri-Strips. Blood loss was about 150 cc and she was taken to the cover room in stable condition by anesthesia. Uterus was opened off the field after it was removed from the abdomen the endometrial cavity was very bland with no evidence of endometrial cancer or hyperplasia Normal [facility] Progress Noteon 11-26-2023 Progress Note Patient was evaluate d at the bedside this afternoon. She had no acute complaints this afternoon. She denies Fever/Chills, Chest Pain, SOB, N/V, DEE, VC. Pain is well-controlled. Vitals: 11/26/23 1130 11/26/23 1145 11/26/23 1200 11/26/23 1322 BP: 131/59 135/62 125/68 130/76 BP Location: Left arm Patient Position: Lying Pulse: 86 97 102 97 Resp: 18 20 16 Temp: 36.4 ?C (97.5 ?F) TempSrc: Temporal SpO2: 100% 100% 100% 100% Physical Exam: Gen: NAD, resting comfortably in bed HEENT: Normocephalic, Atraumatic Resp: No increased WOB, no respiratory distress Card: Regular rate Abd: soft, NTND, no rebound, no guarding. Incisions: Midline vertical incision, with small about of strike through and C/D/I A&P: - Patient doing well this afternoon - BGTs elevated after surgery, continue CCD and SSI - Will continue to monitor Di DO Dunia 11/26/2023 3:16 PM Normal [facility] ECG 12-LEADon 11-20-2023 ECG 12-LEAD IMPRESSION: Sinus rhythm Low voltage, precordial leads Electronically Signed On 11-20-2023 08:20:01 EDT by Biju Josue [facility] 36on 11-19-2023 36 Spoke to patient and she states that she Was instructed by her PCP to increase her glimepiride to 4mg bid which she is starting today. She is monitoring her sugars and will let them/us know if her glucose levels come down with the dose change. [facility] 36 Spoke to patient and she does keep track of her sugars and she is going to call her PCP's office to see if she can get in to optimize her diabetes meds prior to surgery. She is aware that her sugar has to be below 215 the day os surgery. She will call me back and let me know if she needs any help getting in to her PCP. [facility] 36 ----- Message from Robert Bruce MD sent at 11/19/2023 12:08 PM EDT ----- Please call patient and let her know that her blood sugar has to be below 215 on date of surgery. If she is having issues with her blood sugars please help her get into see her primary care physician to optimize her medications ----- Message ----- From: Rachel Zarco APRN - [employer]PERINTENDENT [employer] Sent: 11/19/2023 12:04 PM EDT To: Robert Bruce MD; Ion Williamson, Please see patient's abnormal A1c from PAT. She states that she has been struggling with higher than normal BG levels. BG 291 today. I wanted you to be aware and notified you per our PAT protocol. Thank you. [facility] BASIC METABOLIC PANELon 11-09 Anion gap [Moles/Vol] 7 mmol/L Normal 3-13 [facility] Comment on above: Performed By: #### L [id number] #### Irrigation Equipment Mechanic: VICKY GARCIA ([id number]) [facility] ([facility]) [address] [place] [address] Calcium [Mass/Vol] 10.3 mg/dL Normal 8.4-10.4 [facility] Comment on above: Performed By: #### L [id number] #### Irrigation Equipment Mechanic: VICKY GARCIA ([id number]) [facility] ([facility] [address] [place] [address] Chloride [Moles/Vol] 98 mmol/L Normal 98-107 [facility] Comment on above: Performed By: #### L [id number] #### Irrigation Equipment Mechanic: VICKY GARCIA ([id number]) [facility] ([facility] [address] [place] [address] [place] CO2 [Moles/Vol] 30 mmol/L Normal 22-30 [facility] [facility] Comment on above: Performed By: #### L [id number] #### Irrigation Equipment Mechanic: VICKY GARCIA ([id number]) [facility]) [address] [place] [address] Creatinine [Mass/Vol] 0.33 mg/dL Low 0.52-1.04 [facility] Comment on above: Performed By: #### L [id number] #### Irrigation Equipment Mechanic: VICKY GARCIA ([id number]) [facility] ([facility]) [address] [place] [address] GLOMERULAR FILTRATION RATE ML/MIN/1.73 SQ M.PREDICTED >90.0 Normal >60.0 [facility] Comment on above: Result Comment: Calc ulation based on the Chronic Kidney Disease Epidemiology Collaboration (CKD-EPI) equation refit without adjustment for race Performed By: #### L [id number] #### Irrigation Equipment Mechanic: VICKY GARCIA ([id number]) [facility] ([facility]) [address] [place] [address] Glucose [Mass/Vol] 291 mg/dL High 70-100 [facility] Comment on above: Performed By: #### L [id number] #### Irrigation Equipment Mechanic: VICKY GARCIA ([id number]) [facility]) [address] [place] [address] Potassium [Moles/Vol] 3.4 mmol/L Low 3.5-5.1 [facility] Comment on above: Performed By: #### L [id number] #### Irrigation Equipment Mechanic: VICKY [id number]) [facility] ([facility]) [address] [place] [address] Sodium [Moles/Vol] 135 mmol/L Normal 135-145 [facility] Comment on above: Performed By: #### L [id number] #### Irrigation Equipment Mechanic: VICKY GARCIA ([id number]) [facility] ([facility]) [address] [place] [address] Urea nitrogen [Mass/Vol] 18 mg/dL High 7-17 [facility] Comment on above: Performed By: #### L [id number] #### Irrigation Equipment Mechanic: VICKY GARCIA ([id number]) [facility] ([facility]) [address] [place] [address] BLOOD TYPE AND SCREEN GELon 11-19-2023 ABO GROUPING A Normal [facility] Comment on above: Performed By: #### L [id number] #### Irrigation Equipment Mechanic: VICKY GARCIA ([id number]) [facility] ([facility]) [address] [place] [address] RH TYPE IN BLOOD Positive Normal [facility] Comment on above: Performed By: #### L [id number] #### Irrigation Equipment Mechanic: VICKY GARCIA ([id number]) [facility] ([facility]) [address] [place] [address] CBC (HEMOGRAM)on 11-19-2023 Erythrocyte distribution width (RBC) [Ratio] 12.3 % Normal 11.5-15.0 [facility] Comment on above: Performed By: #### L [id number] #### Irrigation Equipment Mechanic: VICKY GARCIA ([id number]) [facility] ([facility]) [address] [place] [address] Hematocrit (Bld) [Volume fraction] 43.7 % Normal 35.0-47.0 [facility] Comment on above: Performed By: #### L [id number] #### Irrigation Equipment Mechanic: VICKY GARCIA ([id number]) [facility] ([facility]) [address] [place] [address] Hemoglobin (Bld) [Mass/Vol] 14.6 g/dL Normal 11.7-16.0 [facility] Comment on above: Performed By: #### L [id number] #### Irrigation Equipment Mechanic: VICKY GARCIA ([id number]) [facility]) [address] [place] [address] MCH (RBC) [Entitic mass] 28.5 pg Normal 26.0-34.0 [facility] Comment on above: Performed By: #### L [id number] #### Irrigation Equipment Mechanic: VICKY GARCIA ([id number]) [facility] ([facility]) [address] [place] [address] MCHC 33.4 % Normal 30.5-36.0 [facility] Comment on above: Performed By: #### L [id number] #### Irrigation Equipment Mechanic: VICKY GARCIA ([id number]) [facility]) [address] [place] [address] MCV (RBC) [Entitic vol] 85.4 fL Normal 77.0-99.0 [facility] Comment on above: Performed By: #### L [id number] #### Irrigation Equipment Mechanic: VICKY GARCIA ([id number]) [facility] ([facility]) [address] [place] [address] Platelet mean volume (Bld) [Entitic vol] 10.2 fL Normal 9.0-12.7 [facility] Comment on above: Performed By: #### L [id number] #### Irrigation Equipment Mechanic: VICKY GARCIA ([id number]) [facility]) [address] [place] [address] Platelets (Bld) [#/Vol] 316 10*3/uL Normal 140-440 [facility] Comment on above: Performed By: #### L [id number] #### Irrigation Equipment Mechanic: VICKY GARCIA ([id number]) [facility]) [address] [place] [address] RBC (Bld) [#/Vol] 5.12 10*6/uL Normal 3.80-5.20 [facility] Comment on above: Performed By: #### L [id number] #### Irrigation Equipment Mechanic: VICKY GARCIA ([id number]) [facility] [address] [place] [address] WBC (Bld) [#/Vol] 5.8 10*3/uL Normal 3.6-10.7 [facility] Comment on above: Performed By: #### L [id number] #### Irrigation Equipment Mechanic: VICKY GARCIA ([id number]) [facility] [address] [place] [address] HEMOGLOBIN A1Con 11-19-2023 Glucose [Mass/Vol] 252 mg/dL Normal [facility] Comment on above: Performed By: #### L [id number] #### Irrigation Equipment Mechanic: VICKY GARCIA ([id number]) [facility] ([facility]) [address] [place] [address] HbA1c (Bld) [Mass fraction] 10.4 % High <5.7 [facility] Comment on above: Result Comment: Norm al less than 5.7% Prediabetes 5.7% to 6.4% Diabetes 6.5% or higher --HgbA1C levels may not be accurate in patients who have renal disease, received recent blood transfusions, are anemic, or who have dyshemoglobinemia. Performed By: #### L [id number] #### Irrigation Equipment Mechanic: VICKY GARCIA ([id number]) [facility] [address] [place] [address] PREPROCINSon 11-19-2023 PREPROCINS Medication List Accurate as of November 19, 2023 10:00 AM. Always use your most recent med list. acetaminophen 325 MG suppository Commonly known as: Tylenol Medication Adjustments for Surgery: Other (Comment) Notes to patient: Pt states, no longer taking this medication albuterol 108 (90 Base) MCG/ACT inhaler Medication Adjustments for Surgery: Take morning of surgery Notes to patient: IF NEEDED diazePAM 5 MG tablet Commonly known as: Valium Medication Adjustments for Surgery: Take morning of surgery Notes to patient: IF NEEDED glimepiride 2 MG tablet Commonly known as: Amaryl Medication Adjustments for Surgery: Hold morning of surgery indapamide 2.5 MG tablet Commonly known as: Lozol Medication Adjustments for Surgery: Hold morning of surgery KLOR-CON PO Medication Adjustments for Surgery: Hold morning of surgery ondansetron 4 MG tablet Commonly known as: Zofran Medication Adjustments for Surgery: Take morning of surgery Notes to patient: IF NEEDED Additional Instructions: You may take your prescription pain medication. You may take Tylenol for pain. NO Motrin, ibuprofen or Advil for 24 hours prior to surgery or longer if instructed by your surgeon. NO Aleve or Naprosyn for 5 days prior to surgery or longer if instructed by your surgeon. IF YOU TAKE BLOOD THINNERS OR ASPIRIN: DO NOT TAKE ASPIRIN OR ANY MEDICATIONS THAT MAY CONTAIN ASPIRIN 5 DAYS PRIOR TO SURGERY. IF YOUR BLOOD SUGAR IS 250 OR GREATER ON THE DAY OF SURGERY, THERE IS A POSSIBILITY THAT YOUR SURGERY MAY BE CANCELED. Follow any instructions given to you by Dr. TEO Donovan with an antibacterial soap such as Dial or Safeguard or shower kit provided to you before coming to the hospital. No makeup, lotion, powder, deodorant or body spays. No hair products. Remove all jewelry and leave it at home. Wear loose comfortable clothing to go home in. You may brush your teeth morning of surgery. Do not wear contacts day of surgery. No marijuana (THC), smoking or alcohol for 24 hours prior to surgery. Please arrange for a responsible adult to drive you home after your surgery and that there is a responsible adult with you for 24 hours post discharge. If you have specific questions, please call your surgeon. You will receive a call the day before your surgery to verify your arrival time and date. You will be asked to arrive at least two hours prior to your scheduled surgery time. Please bring your [facility] Surgical folder and medication list with you day of surgery. We encourage you to write down any questions you may have for the surgeon, anesthesiologist, or other members of the surgical team and bring it with you the day of surgery. Please bring photo ID and insurance information. Normal [facility] Progress Noteon 11-19-2023 Progress Note [facility] Wesley : 1965 Primary Care Physician: oIn Williamson, DO The patient and/or family/surrogate voluntarily agreed to participate in ACP services. Patient?s cognitive capacity: A&OX3 Code Status: [x] [FULL CODE - Continue all advanced life support: CPR,intubation,invasiv e procedures] [_] [DNR-CCA - DO NOT do CPR, intubation] [_] [DNR-ASSISTANT PROFESSOR OF FORESTRY - Comfort care only] [_] DNR form [was/was not] signed Summary of discussion: The patient health care POA/ surrogate is the following: Rayna Varghese spouse. [Condition that instigated the ACP on this DOS, relevant PMH, functional status, goals of care, and whom this was discussed with including names and relationship to the patient, and any relevant advance care documentation discussion] I answered all the patient/family questions that I could within the range and scope of the current medical situation. We discussed the medical conditions, risks, benefits, outcomes, and goals of care at this time for the patient's medical issues at hand in the face of the patient's chronic issues and current presentation. Total time spent: 3 minutes were spent discussing the patient's resuscitation status, advance care planning, and end of life care, with patient and/or family/surrogate. Rachel Zarco APRN - SUPERINTENDENT AUTOMOTIVE [employer] 11/19/2023, 10:02 AM [facility] 10-21-2023 36 error [facility] 2023 36 PAT: 11.19.2023 at 9:30 am SX: 11.26.2023 at 9 am arrival at 7 am Post op 12.13.2023 at 8:30 am Folder and instructions given. [facility] Office Visiton 2023 Follow-up visit [id number] Taylor Wesley 1965 F Date Provider Department Center 2023 [id number] BRUCE [facility] None Family History Problem Relation Age of Onset Breast cancer Mother Diabetes Maternal Grandmother Family Status - Relation Status Age at Mother Maternal Grandmother Level of Service:90085 DE OFFICE/OUTPATIENT NEW LOW [facility] 30 MINUTES Reason for Visit and Comments: Female Problem [263] [facility] [id number] 36 Name of caller: Rayna Contact phone number: [phone] Relationship to Patient: spouse Provider: teo Practice: [facility] Chief Complaint/Reason for Call: patients spouse would like a callback to schedule the patients new patient appointment due to 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 They have a referral for N93.9 (ICD-10-CM) - Abnormal uterine and vaginal bleeding, unspecified D25.9 (ICD-10-CM) - Leiomyoma of uterus, unspecified G80.8 (ICD-10-CM) - Other cerebral palsy (HCC) N95.0 (ICD-10-CM) - Postmenopausal bleeding Please advise and thank you Best time of day caller can be reached: any Patient advised that office/PCP has 24-48 business hours to return their call: No Normal [facility] Cervical or vaginal specimen microscopic examination by liquid based cytology (reportOrdered By: Luisana Matos on 06-25-2023 Cytology report Cyto stain.thin prep Doc (Cvx/Vag) Comment . [facility] Comment on above: Criteria not met, HP V Genotype not performed.Performed at: - [address] [id number] Director: Sue Floyd MD, Phone: [phone] at: =[facility] [id number] Director: Sue Floyd MD, Phone: [phone] Cervical or vagninal specime n microscopic examination by cytology stain (reported asOrdered By: Luisana Matos on 06-25-2023 Cytology report Cyto stain Doc (Cvx/Vag) Comment . [facility] Comment on above: The Pap smear is a s creening test designed to aid in thedetection of premalignant and malignant conditions of theuterine cervix. It is not a diagnostic procedure andshould not be used as the sole means of detecting cervicalcancer. Both false-positive and false-negative reports dooccur. Detection in cervical specim en of any of human papilloma virus (HPV) 16, 18, 31, 33,Ordered By: Luisana Matos on 06-25-2023 HPV 16+18+31+33+35+39+45+51+5 2+56+58+59+66+68 DNA Probe+sig amp Ql (Cvx) Negative Negative [facility] Comment on above: This nucleic acid am plification test detects fourteen high-risk HPV types (16,18,31,33,35,39,45,51,52,56,58,59,66,68)without differentiation. Laboratory - CytologyOrdered By: Luisana Matos on 06-25-2023 [employer] Delivery Cyto stain Nom (Cvx/Vag) [ID] Comment . [facility] Comment on above: Mili Milan, Cyto technologist (ASCP) Laboratory - Miscellaneous t estsOrdered By: Luisana Matos on 06-25-2023 Service comment (Unsp spec) [Interp] . . [facility] No Panel InformationOrdered By: Luisana Matos on 06-25-2023 Estradiol (E2) Level 36.9 pg/mL [facility] Comment on above: NORMAL REFERENCE RAN GES FEMALE FOLLICULAR 21.4 - 164.8 pg/mL MID-CYCLE PEAK 49.9 - 367.2 pg/mL LUTEAL 40.2 - 259.0 pg/mL POST-MENOPAUSAL ON MHT <11.0 - 462.1 pg/mL NOT ON MHT <11.0 - 58.3 pg/mL MALE <11.0 - 52.5 pg/mL NOTE:[employer] HAS CONFIRMED THE DRUG FULVETRANT (FASLODEX) MAY CAUSE FALSELY ELEVATED ESTRADIOL RESULTS WHEN USING THIS TEST METHOD. IF PATIENT IS TAKING FULVESTRANT AN ALTERNATIVE METHOD SHOULD BE USED TO DETERMINE ESTRADIOL CONCENTRATION. Follicle Stimulating Hormone 38.1 mIU/mL [facility] Comment on above: NORMAL REFERENCE RAN GES FEMALE FOLLICULAR 2.3 - 12.6 mIU/mL MID-CYCLE PEAK 5.2 - 17.5 mIU/mL LUTEAL 1.7 - 12.9 mIU/mL POST-MENOPAUSAL ON MHT 5.9 - 72.8 mIU/mL NOT ON MHT 12.7 - 132.2 mlU/mL MALE 0.7 - 10.8 mIU/mL Serum or plasma thyroid stim ulating hormone (TSH) measurement (units/volume)Ordered By: Luisana Matos on 06-25-2023 TSH Qn 0.95 uIU/mL 0.358-3.74 [facility] Thin prep Papanicolaou smear with manual screeningOrdered By: Luisana Matos on 06-25-2023 Thin prep Papanicolaou smear with manual screening Comment . [facility] Comment on above: NEGATIVE FOR INTRAEP ITHELIAL LESION OR MALIGNANCY. This liquid based Th inPrep(R) pap test was screened withthe use of an image guided system. Antonieta 06-21-2023 CNPN Telephone (AGGENS2) TAYLOR WESLEY ([id number]) 1965 F Date Time Provider Department 06/21/23 VICKY DAVIDSON During your visit today, we recorded the following information about you: Allergies As of Date: 06/21/2023 Noted Allergy Reaction AMOXICILLIN 05/13/2018 8 - GI Upset Date Reviewed: 01/04/2023 Reviewed by: Jazmin Zazueta MD - Fully Assessed Prescriptions as of 07/04/2023 - glimepiride (AMARYL) 2 mg tablet Take 1 tablet by mouth twice daily with meals. - indapamide (LOZOL) 2.5 mg tablet Take 1 tablet by mouth once daily. - ONETOUCH VERIO TEST STRIPS test strip USE TO TEST BLOOD SUGAR TWICE DAILY - acetaminophen (TYLENOL) 325 mg tablet Take 2 tablets by mouth as needed. - albuterol HFA (PROVENTIL HFA, VENTOLIN HFA) 90 mcg/actuation inhaler Inhale 2 Puffs as instructed as needed. - Albuterol Sulfate 1.25 mg/3 mL nebulizer solution Use 1 Ampule via nebulizer as needed. - ondansetron orally disintegrating (ZOFRAN ODT) 4 mg disintegrating tablet Take 1 tablet by mouth every 6 hours as needed. - diazePAM (VALIUM) 5 mg tablet as needed for anxiety (02/07/21 procedure). Problem List As Of Date 06/21/2023 Noted Resolved Type 2 diabetes mellitus (HCC) [E11.9] 02/07/2021 Obesity, Class II, BMI 35-39.9 [E66.9] 02/07/2021 Breast calcification, right [R92.1] 02/07/2021 Paraplegia (HCC) [G82.20] 02/07/2021 Wheelchair bound [Z99.3] 02/07/2021 At high risk for breast cancer [Z91.89] 03/07/2021 Abnormal mammogram [R92.8] 12/27/2020 Cerebral palsy (HCC) [G80.9] 05/13/2018 Community acquired pneumonia [J18.9] 09/12/2021 Constipation [K59.00] 05/14/2018 Elevated liver enzymes [R74.8] 11/02/2019 Essential hypertension [I10] 05/13/2018 Family history of malignant neoplasm of breast *05/13/2018 Generalized osteoarthritis [M15.9] 05/13/2018 Hemiplegic cerebral palsy (HCC) [G80.8] 09/12/2021 Hypokalemia [E87.6] 07/06/2020 Leg cramps [R25.2] 10/30/2019 Muscle cramps [R25.2] 09/12/2021 Pain in buttock [M79.18] 09/12/2021 Polydipsia [R63.1] 01/12/2021 Sepsis (HCC) [A41.9] 09/12/2021 11/19/2021 Skin ulcer (HCC) [L98.499] 12/05/2020 Nonalcoholic fatty liver disease [K76.0] 12/04/2019 Vomiting [R11.10] 09/12/2021 History of right breast biopsy [Z98.890] 04/27/2022 Dense breast tissue [R92.30] 11/08/2022 Unspecified lump in axillary tail of the left b*01/04/2023 Encounter Status:Closed by VICKY DAVIDSON on 07/04/23 [facility] DBT Breast - right diagnosti c for implanton 06-14-2023 [facility] GUILLERMINA DIAG W ROBERTO RTon 024 GUILLERMINA DIAG W ROBERTO RT * * *Final Report* * * DATE OF EXAM: Jun 14 2023 9:17AM AAW [id number] - GUILLERMINA DIAG W ROBERTO RT / PROCEDURE REASON: multiple diagnoses * * * * Physician Interpretation * * * * #[id number] - GUILLERMINA DIAG W ROBERTO RT UNILATERAL RIGHT DIGITAL DIAGNOSTIC MAMMOGRAM TOMOSYNTHESIS WITH CAD: 06/14/2023 HISTORY: Multiple Diagnoses\ Shortened interval follow up mammogram. RESULT: TECHNIQUE: The study was acquired using full field digital technology and interpreted from soft copy. Digital Breast Tomosynthesis (DBT) images were obtained and used to assist in the interpretation of this examination. Current study was also evaluated with a Computer Aided Detection (CAD). Comparison is made to exams dated: 01/25/2023 ultrasound, 11/02/2022 mammogram, and 04/27/2022 mammogram - [facility]. The right breast is heterogeneously dense, which may obscure small masses. Examination indicates a biopsy marker in the right breast. There are multiple coarse punctate calcifications in the right breast middle depth lateral region seen on the craniocaudal view only. These are not significantly changed. There also are multiple coarse calcifications in the right breast posterior depth central to the nipple seen on the craniocaudal view only. These are not significantly changed. No other significant masses or calcifications are seen in the breast. IMPRESSION: PROBABLY BENIGN - SHORT TERM INTERVAL FOLLOW-UP RECOMMENDED The multiple coarse punctate calcifications in the right breast middle depth lateral region seen on the craniocaudal view only are probably benign. The multiple coarse calcifications in the right breast posterior depth central to the nipple seen on the craniocaudal view only are probably benign. A follow-up mammogram in 6 months is recommended. A follow-up mammogram in 6 months is recommended to demonstrate stability. SUMMARY: Secondary to the patient's condition the mammogram images were very difficult to obtain. Magnification views were not possible. Only a CC view was possible. The multiple groups of calcifications appear similar to several prior exams. In particular today's exam appears very similar to a CC view from 02/28/2021. A stereotactic biopsy was not done. Ismael Barrientos M.D. tab/:06/14/2023 16:12:49 Double Head Machine Operator(s): Vicky Martinez RT(R)(M), [facility] Mammogram BI-RADS: 3 Probably benign finding - short term interval follow-up recommended Multiple national specialty organizations have released breast cancer screening guidelines for women at average risk for developing breast cancer - guidelines that are based on both evidence and opinion, yet differ on when to start and how often to screen for breast cancer. With representation from Breast Imaging, Internal Medicine, Women's Health, Family Medicine, and Medical/Surgical Oncology, the [facility] has carefully reviewed the data and reached the following consensus: 1) All women should engage in shared decision-making with their providers to decide when to start and how often to screen; 2) All women should have the opportunity to start screening mammography at age 40; 3) For women ages 45-55, we recommend annual screening mammograms; 4) For women ages 55 and over, we support both the transition from an annual to a biennial interval if this aligns more with patient's values and preferences, or continuation with annual screening; 5) All women should discuss with their providers when to stop screening mammograms. Pipe Wrapping Machine Operator: Alida Transcribe Date/Time: Jun 14 2023 8:31A Dictated by : ISMAEL BARRIENTOS MD This examination was interpreted and the report reviewed and electronically signed by: ISMAEL BARRIENTOS MD on Jun 14 2023 4:12PM EST [id number] [facility] TAYLOR [facility] ([id number]) 1965 F Date Time Provider Department 02/04/23 JAZMIN ZAZUETA [facility] During your visit today, we recorded the following information about you: Jazmin Zazueta MD 02/04/2023 9:54 AM Signed Please notify patient US probably benign. 6 month follow up recommended. Order placed for US. She is scheduled to see KETTLE HAND in May 2023. MD Dionisio Healy Amy, ELECTRIC BRAIN WAVE EQUIPMENT MECHANIC.SUPERINTENDENT AUTOMOTIVE 02/08/2023 12:07 PM Signed I spoke with her and she is aware. We will schedule 6 month US at her next visit. Allergies As of Date: 02/04/2023 Noted Allergy Reaction AMOXICILLIN 05/13/2018 8 - GI Upset Date Reviewed: 01/04/2023 Reviewed by: Jazmin Zazueta MD - Fully Assessed Reason for Visit: Results [95] Primary Visit Diagnosis:Mass of axillary tail of left breast [N63.32] Order(s):[employer] LEFT [[id number]] Order #: [id number] FUTURE Prescriptions as of 02/08/2023 - glimepiride (AMARYL) 2 mg tablet Take 1 tablet by mouth twice daily with meals. - indapamide (LOZOL) 2.5 mg tablet Take 1 tablet by mouth once daily. - [employer] OncologyTOUCH VERIO TEST STRIPS test strip USE TO TEST BLOOD SUGAR TWICE DAILY - acetaminophen (TYLENOL) 325 mg tablet Take 2 tablets by mouth as needed. - albuterol HFA (PROVENTIL HFA, VENTOLIN HFA) 90 mcg/actuation inhaler Inhale 2 Puffs as instructed as needed. - Albuterol Sulfate 1.25 mg/3 mL nebulizer solution Use 1 Ampule via nebulizer as needed. - ondansetron orally disintegrating (ZOFRAN ODT) 4 mg disintegrating tablet Take 1 tablet by mouth every 6 hours as needed. - diazePAM (VALIUM) 5 mg tablet as needed for anxiety (02/07/21 procedure). Problem List As Of Date 02/04/2023 Noted Resolved Type 2 diabetes mellitus (HCC) [E11.9] 02/07/2021 Obesity, Class II, BMI 35-39.9 [E66.9] 02/07/2021 Breast calcification, right [R92.1] 02/07/2021 Paraplegia (HCC) [G82.20] 02/07/2021 Wheelchair bound [Z99.3] 02/07/2021 At high risk for breast cancer [Z91.89] 03/07/2021 Abnormal mammogram [R92.8] 12/27/2020 Cerebral palsy (HCC) [G80.9] 05/13/2018 Community acquired pneumonia [J18.9] 09/12/2021 Constipation [K59.00] 05/14/2018 Elevated liver enzymes [R74.8] 11/02/2019 Essential hypertension [I10] 05/13/2018 Family history of malignant neoplasm of breast *05/13/2018 Generalized osteoarthritis [M15.9] 05/13/2018 Hemiplegic cerebral palsy (HCC) [G80.8] 09/12/2021 Hypokalemia [E87.6] 07/06/2020 Leg cramps [R25.2] 10/30/2019 Muscle cramps [R25.2] 09/12/2021 Pain in buttock [M79.18] 09/12/2021 Polydipsia [R63.1] 01/12/2021 Sepsis (HCC) [A41.9] 09/12/2021 11/19/2021 Skin ulcer (HCC) [L98.499] 12/05/2020 Nonalcoholic fatty liver disease [K76.0] 12/04/2019 Vomiting [R11.10] 09/12/2021 History of right breast biopsy [Z98.890] 04/27/2022 Dense breast tissue [R92.30] 11/08/2022 Unspecified lump in axillary tail of the left b*01/04/2023 Encounter Status:Closed by JAZMIN ZAZUETA on 02/08/23 [facility] Absolute lymphocyte countOrd ered By: Yenni Williamson on 01-25-2023 Lymphocytes Auto (Unsp spec) [#/Vol] 2.61 10*3/uL 0.83-4.51 [facility] Basophil percentageOrdered B y: Yenni Williamson on 01-25-2023 Basophils/100 WBC (Bld) 0.8 % 0-1 [facility] Bilirubin [Mass/Vol] 0.50 mg/dL 0.20-1.00 [facility] Comment on above: For patients on eltr ombopag therapy, use of Dimension [place] TBIL is not recommended. Chloride [Moles/Vol] 101 mmol/L 98-107 [facility] Cholesterol [Mass/Vol] 129 mg/dL <200 [facility] Comment on above: <200 mg/dL Desirable 200-240 mg/dL Borderline >240 mg/dL High Risk Eosinophils/100 WBC (Bld) 5.3 % 0-5 [facility] Glucose [Mass/Vol] 141 mg/dL 74-106 [facility] Comment on above: Fasting Glucose resu lt greater than or equal to 126 mg/dL suggests DIABETES MELLITUS per A.D.A. criteria. Neutrophils (Bld) [#/Vol] 2.5 10*3/uL 2.0-7.7 [facility] Neutrophils/100 WBC (Bld) 40.5 % 47-70 [facility] Potassium [Moles/Vol] 3.2 mmol/L 3.5-5.1 [facility] Protein [Mass/Vol] 8.0 g/dL 6.4-8.2 [facility] Sodium [Moles/Vol] 137 mmol/L 136-145 [facility] Triglyceride [Mass/Vol] 127 mg/dL <199 [facility] Comment on above: The drugs N-Acetylcy steine and Metamizole may falsely depress this assay.Serum Triglycerides Reference Interval Normal <150 mg/dL Borderline high 150 - 199 mg/dL High 200 - 499 mg/dL Very High > or = 500 mg/dL WBC (Bld) [#/Vol] 6.1 10*3/uL 4.4-11.0 [facility] Blood erythrocytes count (nu mber/volume)[facility] on 01-25-2023 RBC (Bld) [#/Vol] 4.60 10*6/uL 4.2-5.4 [facility] Blood hemoglobin measurement (mass/volume)Ordered By: [facility] on 01-25-2023 Hemoglobin (Bld) [Mass/Vol] 13.2 g/dL 12.0-15.0 [facility] Blood lymphocytes/100 leukoc ytesOrdered By: [facility] on 01-25-2023 Lymphocytes/100 WBC (Bld) 42.9 % 19-41 [facility] Blood monocytes/100 leukocyt esOrdered By: [facility] on 01-25-2023 Monocytes/100 WBC (Bld) 10.5 % 0-10 [facility] Blood platelet mean volumeOr dered By: [facility] on 01-25-2023 Platelet mean volume (Bld) [Entitic vol] 10.0 fL 6.2-12.0 [facility] Determination of erythrocyte mean corpuscular volume (MCV)Ordered By: [facility] on 01-25-2023 MCV (RBC) [Entitic vol] 90.0 fL 81-99 [facility] Hematocrit Auto (Bld) [Volum e fraction]Ordered By: [facility] on 01-25-2023 Hematocrit (Bld) [Volume fraction] 41.4 % 37-47 [facility] Laboratory - Chemistry and C hemistry - challengeOrdered By: [facility] on 01-25-2023 ALP [Catalytic activity/Vol] 75 U/L 45-117 [facility] ALT [Catalytic activity/Vol] 43 U/L 13-56 [facility] CO2 [Moles/Vol] 32.0 mmol/L 21.0-32.0 [facility] Globulin (S) [Mass/Vol] 4.8 g/dL 2.2-4.2 [facility] Urea nitrogen/Creatinine [Mass ratio] 28.3 mg/mg 10-20 [facility] Laboratory - Hematology and Cell countsOrdered By: [facility] on 01-25-2023 Erythrocyte distribution width (RBC) [Entitic vol] 42.8 fL 35.1-43.9 [facility] Erythrocyte distribution width (RBC) [Ratio] 13.1 % 11.6-14.6 [facility] Immature granulocytes/100 WBC (Bld) 0.000 % 0.0-0.9 [facility] Comment on above: IG% - Immature Granu locytes (promyelocytes, myelocytes and metamyelocytes) > 1% indicates that a LEFT SHIFT is Present. MCH (RBC) [Entitic mass] 28.7 pg 27.0-32.0 [facility] Nucleated RBC/100 WBC (Bld) [Ratio] 0 % 0-5 [facility] US AXILLA ONLY LTon 01-09 [facility] US AXILLA ONLY LT * * *Final Report* * * DATE OF EXAM: Jan 25 2023 9:35AM AAW [id number] - [facility] US AXILLA ONLY LT / PROCEDURE REASON: Unspecified lump in axillary tail of the left breast * * * * Physician Interpretation * * * * #[id number] [facility] US AXILLA ONLY LT ULTRASOUND OF LEFT BREAST AND AXILLA: 01/25/2023 HISTORY: Patient presents with left axillary lump. RESULT: Comparison is made to exams dated: 12/22/2020 mammogram and 08/08/2012 mammogram - [facility]. Color flow and real-time ultrasound of the left breast axilla were performed. Regan scale images of the real-time examination were reviewed. There is a lymph node with uniform cortical thickening in the left axillary tail. This lymph node displays fatty hilum. This correlates as palpated and to the reported pain. IMPRESSION: PROBABLY BENIGN - SHORT TERM INTERVAL FOLLOW-UP RECOMMENDED The lymph node with uniform cortical thickening is probably benign. A follow-up ultrasound in 6 months is recommended. There is one normal sized node that has slight prominence of the cortex. This is likely reactive. A follow-up ultrasound in 6 months is recommended to demonstrate stability. Ismael ayala/alida:01/25/2023 09:58:29 Double Head Machine Operator(s): Marycruz Shearer R.D.M.S., [facility] Ultrasound BI-RADS: 3 Probably benign finding - short term interval follow-up recommended Multiple national specialty organizations have released breast cancer screening guidelines for women at average risk for developing breast cancer - guidelines that are based on both evidence and opinion, yet differ on when to start and how often to screen for breast cancer. With representation from Breast Imaging, Internal Medicine, Women's Health, Family Medicine, and Medical/Surgical Oncology, the [facility] has carefully reviewed the data and reached the following consensus: 1) All women should engage in shared decision-making with their providers to decide when to start and how often to screen; 2) All women should have the opportunity to start screening mammography at age 40; 3) For women ages 45-55, we recommend annual screening mammograms; 4) For women ages 55 and over, we support both the transition from an annual to a biennial interval if this aligns more with patient's values and preferences, or continuation with annual screening; 5) All women should discuss with their providers when to stop screening mammograms. Pipe Wrapping Machine Operator: Alida Transcribe Date/Time: Jan 25 2023 9:35A Dictated by : ISMAEL BARRIENTOS MD This examination was interpreted and the report reviewed and electronically signed by: ISMAEL BARRIENTOS MD on Jan 25 2023 9:58AM EST [id number] Normal [facility] Auto (RBC) [Mass/Vol]Or dered By: Yenni Williamson on 01-25-2023 MCHC (RBC) [Mass/Vol] 31.9 g/dL 32-36 [facility] No Panel InformationOrdered By: Yenni Williamson on 01-25-2023 Estimated GFR (MDRD) Amer 180 mL/min >60 [facility] Comment on above: GFR Calc Estimated GFR (MDRD) Non-Af Amer 149 mL/min >60 [facility] Comment on above: Non- GFR Calc Platelets bldOrdered By: Radha Williamson on 01-25-2023 Platelets (Bld) [#/Vol] 318 10*3/uL 150-450 [facility] Serum or plasma albumin aj urement (mass/volume)Ordered By: Yenni Williamson on 01-25-2023 Albumin [Mass/Vol] 3.2 g/dL 3.2-5.0 [facility] Serum or plasma albumin/glob ulin mass ratioOrdered By: Yenni Williamson on 01-25-2023 Albumin/Globulin [Mass ratio] 0.7 {ratio} 0.9-2.4 [facility] Serum or plasma calcium aj urement (mass/volume)Ordered By: Yenni Williamson on 01-25-2023 Calcium [Mass/Vol] 9.6 mg/dL 8.5-10.1 [facility] Serum or plasma cholesterol in HDL measurement (mass/volume)Ordered By: Yenni Williamson on 01-25-2023 Cholesterol in HDL [Mass/Vol] 35 mg/dL >40 [facility] Comment on above: The drugs N-Acetylcy steine and Metamizole may falsely depress this assay. Reference Range HDL <40 mg/dL Low HDL Cholesterol HDL >or= 60 mg/dL High HDL Cholesterol Serum or plasma cholesterol in VLDL measurement (mass/volume)Ordered By: Yenni Williamson on 01-25-2023 Cholesterol in VLDL [Mass/Vol] 25 mg/dL 5-40 [facility] Serum or plasma creatinine m easurement (mass/volume)Ordered By: [facility] on 01-25-2023 Creatinine [Mass/Vol] 0.46 mg/dL 0.55-1.02 [facility] Comment on above: The validity of the calculated GFR & GFRAA in patients over 70 years has not been determined. Clinical correlation is essential. Serum or plasma low density lipoprotein (LDL) cholesterol measurement (mass/volume)[facility] 01-25[facility]23 Cholesterol in LDL [Mass/Vol] 69 mg/dL 0-130 [facility] Serum or plasma urea nitroge n measurement (mass/volume)[facility]: [facility] 01-25-2023 Urea nitrogen [Mass/Vol] 13 mg/dL 7-18 [facility] Thin prep Papanicolaou smear with manual screeningOrdered By: [facility] on 01-25-2023 Thin prep Papanicolaou smear with manual screening 33 U/L 15-37 [facility] Thin prep Papanicolaou smear with manual screening 4 5-15 [facility] Whole blood hemoglobin A1c/t otal hemoglobin ratio (mass fraction)[facility]: [facility] 01-25-2023 HbA1c (Bld) [Mass fraction] 6.8 % 3.8-5.6 [facility] Comment on above: Normal < 5.7 % Predi abetic 5.7 - 6.4 % Diabetic >or= 6.5 % Please note range changes. CHAIMOVon 01-04-2023 CNOV Office Visit (AGGBR R) TAYLOR WESLEY ([id number]) 1965 F Date Time Provider Department 01/04/23 9:30 AM JAZMIN ZAZUETA AGGTERENCE During your visit today, we recorded the following information about you: Pulse Blood pressure Weight Height 77/minute 135/83 86.3 kg 1.499 m Karen Hoyos MA 01/04/2023 9:28 AM Signed Taylor Wesley is a 57 year old female who presents for Breast Problem (Patient presents for a new LT axilla mass. Patient confirms palpability, as well as discomfort and itching. Patient denies any nipple abnormalities or nipple discharge. ) CARLITA Almeida Amanda M, MD 01/04/2023 9:47 AM Signed Jazmin Zazueta MD [facility] [address] [place] [address] SUBJECTIVE Chief Complaint: Patient presents with: Breast Problem: Patient presents for a new LT axilla mass. Patient confirms palpability, as well as discomfort and itching. Patient denies any nipple abnormalities or nipple discharge. . HPI Taylor Wesley is a 57 year old female here today for evaluation of tender axillary lump on the left. Patient is high risk and has history of calcifications in right breast. Patient noted tender lump after shaving. Nursing Notes: Karen Hoyos MA 01/04/2023 9:28 AM Signed Taylor Cristóbal Maryjane is a 57 year old female who presents for Breast Problem (Patient presents for a new LT axilla mass. Patient confirms palpability, as well as discomfort and itching. Patient denies any nipple abnormalities or nipple discharge. ) Karen Hoyos MA No question data found. Review of Systems Constitutional: Negative for fever, malaise/fatigue and weight loss. Breast: See HPI PAST MEDICAL HISTORY Diagnosis Date Paraplegia (HCC) Type 2 diabetes mellitus (HCC) Wheelchair bound PAST SURGICAL HISTORY Procedure Laterality Date BACK SURGERY HX BX OF BREAST; INCISIONAL Right 02/28/2021 Benign PAST SURGICAL HISTORY OF Thumb surgery TOTAL HIP REPLACEMENT Left Social History Tobacco Use Smoking status: Never Smokeless tobacco: Never Vaping Use Vaping Use: Never used Substance Use Topics Alcohol use: Yes Comment: occasionally Drug use: Never FAMILY HISTORY Problem Relation Age of Onset Breast Cancer Mother 43 at 45 Diabetes Maternal Grandmother Ovarian cancer No Family History The ROS, medical, surgical, family, and social history were reviewed by Jazmin Zazueta MD ALLERGIES Allergen Reactions Amoxicillin GI Upset Current Outpatient Medications Medication Sig ONETOUCH VERIO TEST STRIPS test strip USE TO TEST BLOOD SUGAR TWICE DAILY acetaminophen (TYLENOL) 325 mg tablet Take 2 tablets by mouth as needed. albuterol HFA (PROVENTIL HFA, VENTOLIN HFA) 90 mcg/actuation inhaler Inhale 2 Puffs as instructed as needed. Albuterol Sulfate 1.25 mg/3 mL nebulizer solution Use 1 Ampule via nebulizer as needed. ondansetron orally disintegrating (ZOFRAN ODT) 4 mg disintegrating tablet Take 1 tablet by mouth every 6 hours as needed. diazePAM (VALIUM) 5 mg tablet as needed for anxiety (02/07/21 procedure). glimepiride (AMARYL) 2 mg tablet Take 1 tablet by mouth twice daily with meals. indapamide (LOZOL) 2.5 mg tablet Take 1 tablet by mouth once daily. No current facility-administered medications for this visit. OBJECTIVE BP 135/83 Pulse 77 Ht 149.9 cm (4' 11) Wt 86.3 kg (190 lb 3.2 oz) BMI 38.42 kg/m? BMI 38.42 kg/(m2) Physical Exam Neck: Thyroid: No thyromegaly. Chest: Breasts: Breasts are symmetrical. Right: No inverted nipple, mass, nipple discharge, skin change or tenderness. Left: No inverted nipple, mass, nipple discharge, skin change or tenderness. Lymphadenopathy: Head: Right side of head: No submental, submandibular or tonsillar adenopathy. Left side of head: No submental, submandibular or tonsillar adenopathy. Cervical: No cervical adenopathy. Upper Body: Right upper body: No supraclavicular or axillary adenopathy. Left upper body: No supraclavicular or axillary adenopathy. Neurological: Mental Status: She is alert and oriented to person, place, and time. Plan ASSESSMENT/PLAN Unspecified lump in axillary tail of the left breast Taylor Wesley is a 57 year old female here for evaluation of a new problem. High risk for breast cancer. History of US guided biopsy of right breast mass associated with calcification 02/28/2021. 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 Right breast calcs that are being monitored. Today, she is concerned about a left axilary lump that is tender. Nothing suspicious on clinical exam. Offered reassurance. Warm compresses and NSAIDs. Schedule for left US first available. Will notify of results. Genetics negative for pathologic variant. VUS in CDH1. Lifetime risk 30.3% TC v8 I have recommended she undergo high risk scre (more content not included)... Normal [facility] CNOVon 11-09-2022 CNOV Office Visit (AGGBRC R) TAYLOR WESLEY ([id number]) 1965 F Date Time Provider Department 11/09/22 9:30 AM JAZMIN ZAZUETA AGGBR During your visit today, we recorded the following information about you: Pulse Blood pressure Weight Height 76/minute 124/80 87.1 kg 1.499 m Jazmin Zazueta MD 11/08/2022 2:07 PM Written Taylorimani Wesley is a 57 year old female here for follow up. History of US guided biopsy of right breast mass associated with calcification 02/28/2021. 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 ? Right breast calcs appear stable. Nothing suspicious on clinical exam. ? Genetics negative for pathologic variant. VUS in CDH1. ? Lifetime risk 30.3% TC v8 ? I have recommended she undergo high risk screening. According to the NCCN guidelines, this includes monthly self breast exams, a clinical exam every 6-12 months and annual screening mammograms and MRIs.? ? Cannot do breast MRI due to decreased mobility. Will monitor with mammograms. Mutually agreed no risk reduction medication due to potential side effects. ? Follow up in 6 months with bilateral mammograms and appointment with [facility]. Jazmin Zazueta MD 11/09/2022 12:44 PM Signed Jazmin Zazueta MD [facility] [address] [place] [id number] SUBJECTIVE Chief Complaint: Patient presents with: Follow Up Tests Results . HPI Taylor Wesley is a 57 year old female here for high risk follow up. History of US guided biopsy of right breast mass associated with calcification 02/28/2021. 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 Mammograms on 04/27/22 showed calcs in right breast. Heterogeneously dense breast tissue. Right mammogram on 11/02/22 limited but BIRADS 2. She denies palpating any breast masses or axillary adenopathy. No skin or nipple changes. No nipple discharge. Nursing Notes: Carmen Beltran NA 11/09/2022 9:36 AM Signed Patient presents for follow up after imaging. Denies any new concerns. ALISSON Freed AGE AT [place] 12 AGE AT FIRST NA FAMILY HISTORY OF BREAST CANCER Yes (IF YES) NUMBER OF FIRST DEGREE RELATIVES WITH BREAST CANCER 1 PREVIOUS BREAST BIOPSIES Yes RACE -[place] Review of Systems Constitutional: Negative for fever, malaise/fatigue and weight loss. Breast: See HPI PAST MEDICAL HISTORY Diagnosis Date - Paraplegia (HCC) - Type 2 diabetes mellitus (HCC) - Wheelchair bound PAST SURGICAL HISTORY Procedure Laterality Date - BACK SURGERY HX - BX OF BREAST; INCISIONAL Right 02/28/2021 Benign - PAST SURGICAL HISTORY OF Thumb surgery - TOTAL HIP REPLACEMENT Left Social History Tobacco Use - Smoking status: Never - Smokeless tobacco: Never Vaping Use - Vaping Use: Never used Substance Use Topics - Alcohol use: Yes Comment: occasionally - Drug use: Never FAMILY HISTORY Problem Relation Age of Onset - Breast Cancer Mother 43 at 45 - Diabetes Maternal Grandmother - Ovarian cancer No Family History The ROS, medical, surgical, family, and social history were reviewed by Jazmin Zazueta MD ALLERGIES Allergen Reactions - Amoxicillin GI Upset Current Outpatient Medications Medication Sig - ONETOUCH VERIO TEST STRIPS test strip USE TO TEST BLOOD SUGAR TWICE DAILY - acetaminophen (TYLENOL) 325 mg tablet Take 2 tablets by mouth as needed. - albuterol HFA (PROVENTIL HFA, VENTOLIN HFA) 90 mcg/actuation inhaler Inhale 2 Puffs as instructed as needed. - Albuterol Sulfate 1.25 mg/3 mL nebulizer solution Use 1 Ampule via nebulizer as needed. - ondansetron orally disintegrating (ZOFRAN ODT) 4 mg disintegrating tablet Take 1 tablet by mouth every 6 hours as needed. - diazePAM (VALIUM) 5 mg tablet as needed for anxiety (02/07/21 procedure). - glimepiride (AMARYL) 2 mg tablet Take 1 tablet by mouth twice daily with meals. - indapamide (LOZOL) 2.5 mg tablet Take 1 tablet by mouth once daily. No current facility-administered medications for this visit. OBJECTIVE BP 124/80 Pulse 76 Ht 149.9 cm (4' 11) Wt 87.1 kg (192 lb) BMI 38.78 kg/m? BMI 38.78 kg/(m2) Physical Exam Neck: Thyroid: No thyromegaly. Chest: Breasts: Breasts are symmetrical. Right: No inverted nipple, mass, nipple discharge, skin change or tenderness. Left: No inverted nipple, mass, nipple discharge, skin change or tenderness. Lymphadenopathy: Head: Right side of head: No submental, submandibular or tonsillar adenopathy. Left side of head: No submental, submandibular or tonsillar adenopathy. Cervical: No cervical adenopathy. Upper Body: Right upper body: No supraclavicular or axillary adenopathy. Left upper body: No supraclavicular or axillary adenopathy. Neurological: Mental Status: She is alert and oriented to person, place, and time. Plan ASSESSMENT/PLAN At high risk for (more content not included)... Normal [facility] CNCOon 11-02-2022 [facility] HNO ID: [id number] Author: Coordinator, Mammography Service: ? Author Type: Physician Type: Letter Filed: 11/05/2022 11:35 PM Note Text: [facility] [address] [place] [address] November 02, 2022 PID: [id number] Taylor Wesley [id number] [facility] [address] [place] [id number] Dear Ms. Wesley, We are pleased to inform you that the results of your recent breast imaging exam on 11/02/2022 are normal. Early detection of cancer is very important. We also understand recommendations regarding breast cancer screening are controversial. Please discuss with your primary care provider which strategy is best for you and whether a mammogram is right for you. Your imaging studies and report will be kept on file at [facility] as part of your permanent medical record and are available for your continuing care. Thank you for allowing us to help in meeting your health care needs. Sincerely, Dr. Whitfield Interpreting Radiologist [facility] (Normal over 40) Normal [facility] DIAGNOSTIC RTon 11-03-19 23 [facility] DIAGNOSTIC RT * * *Final Report* * * DATE OF EXAM: Nov 02 2022 9:27AM AAW [id number] - [facility] DIAGNOSTIC RT / PROCEDURE REASON: multiple diagnoses * * * * Physician Interpretation * * * * #[id number] - [facility] DIAGNOSTIC RT UNILATERAL RIGHT DIGITAL DIAGNOSTIC MAMMOGRAM WITH CAD: 11/02/2022 HISTORY: Multiple Diagnoses\ Six month follow up mammogram. Patient reports no breast problems. RESULT: TECHNIQUE: The study was acquired using full field digital technology and interpreted from soft copy. Current study was also evaluated with a Computer Aided Detection (CAD). Comparison is made to exams dated: 04/27/2022 mammogram, 09/01/2021 mammogram, 02/28/2021 mammogram, 02/07/2021 mammogram - [facility], and 12/22/2020 mammogram - [facility]. The tissue of right breast is heterogeneously dense. This may lower the sensitivity of mammography. There are multiple benign regional fine calcifications in the right breast middle depth lateral region seen on the craniocaudal view only. These are not significantly changed. Additional views including lateral view not able to be obtained due patient being combative. Other group of calcifications in the inner left breast not seen on today's imaging but had probably benign appearance on prior exams dating back to 2020. IMPRESSION: BENIGN FINDING Limited exam. Patient combative and further imaging could not be obtained. There is no mammographic evidence of malignancy. A 1 year screening mammogram is recommended. Stu Whitfield M.D. kk/:11/02/2022 09:45:43 Double Head Machine Operator(s): Vicky Martinez RT(R)(M), [facility] letter sent: Normal over 40 Mammogram BI-RADS: 2 Benign finding Multiple national specialty organizations have released breast cancer screening guidelines for women at average risk for developing breast cancer - guidelines that are based on both evidence and opinion, yet differ on when to start and how often to screen for breast cancer. With representation from Breast Imaging, Internal Medicine, Women's Health, Family Medicine, and Medical/Surgical Oncology, the [facility] has carefully reviewed the data and reached the following consensus: 1) All women should engage in shared decision-making with their providers to decide when to start and how often to screen; 2) All women should have the opportunity to start screening mammography at age 40; 3) For women ages 45-55, we recommend annual screening mammograms; 4) For women ages 55 and over, we support both the transition from an annual to a biennial interval if this aligns more with patient's values and preferences, or continuation with annual screening; 5) All women should discuss with their providers when to stop screening mammograms. Pipe Wrapping Machine Operator: Alida Transcribe Date/Time: Nov 02 2022 8:36A Dictated by : STU WHITFIELD MD This examination was interpreted and the report reviewed and electronically signed by: STU WHITFIELD MD on Nov 02 2022 9:45AM EST [id number] Normal [facility] Whole blood hemoglobin A1c/t otal hemoglobin ratio (mass fraction)Ordered By: Dr. Williamson on 07-16-2022 HbA1c (Bld) [Mass fraction] 6.8 % 3.8-5.6 [facility] Comment on above: Normal < 5.7 % Predi abetic 5.7 - 6.4 % Diabetic >or= 6.5 % Please note range changes. No Panel InformationOrdered By: Dr. Williamson on 05-31-2022 Urine Microalbumin/Creatinine Ratio KYP [facility] Comment on above: Test not performed Thin prep Papanicolaou smear with manual screeningOrdered By: Dr. Williamson on 05-31-2022 Thin prep Papanicolaou smear with manual screening < 5.0 mg/L NO RANGE EST. [facility] Urine creatinine measurement (mass/volume)Ordered By: Dr. Williamson on 05-31-2022 Creatinine (U) [Mass/Vol] 46.10 mg/dL NO RANGE EST. [facility] Whole blood hemoglobin A1c/t otal hemoglobin ratio (mass fraction)Ordered By: Dr. Williamson on 05-07-2022 HbA1c (Bld) [Mass fraction] 8.0 % 3.8-5.6 [facility] Comment on above: Normal < 5.7 % Predi abetic 5.7 - 6.4 % Diabetic >or= 6.5 % Please note range changes. GUILLERMINA MEJIA BILATon 02-1 [facility] Laboratory - Microbiology an d Antimicrobial susceptibilityon 03-06-2022 SARS-CoV-2 (COVID-19) RNA SHARA+probe Ql (Unsp spec) Not detected [facility] No Panel Informationon 03-06 Influenza Types A,B Rapid (Clinic) Not detected [facility] Laboratory - Microbiology an d Antimicrobial susceptibilityon 02-05-2022 SARS-CoV-2 (COVID-19) RNA SHARA+probe Ql (Unsp spec) Not detected [facility] No Panel Informationon 02-05 Influenza Types A,B Rapid (Clinic) Not detected [facility] Basophil percentageOrdered B y: Dr. Williamson on 01-30-2022 Bilirubin [Mass/Vol] 0.60 mg/dL 0.20-1.00 [facility] Comment on above: For patients on eltr ombopag therapy, use of Dimension [place] TBIL is not recommended. Chloride [Moles/Vol] 100 mmol/L 98-107 [facility] Cholesterol [Mass/Vol] 127 mg/dL <200 [place] Comment on above: <200 mg/dL Desirable 200-240 mg/dL Borderline >240 mg/dL High Risk Glucose [Mass/Vol] 97 mg/dL 74-106 [facility] Potassium [Moles/Vol] 3.2 mmol/L 3.5-5.1 [facility] Protein [Mass/Vol] 8.1 g/dL 6.4-8.2 [facility] Sodium [Moles/Vol] 138 mmol/L 136-145 [facility] Triglyceride [Mass/Vol] 114 mg/dL <199 [facility] Comment on above: The drugs N-Acetylcy steine and Metamizole may falsely depress this assay.Serum Triglycerides Reference Interval Normal <150 mg/dL Borderline high 150 - 199 mg/dL High 200 - 499 mg/dL Very High > or = 500 mg/dL Laboratory - Chemistry and C hemistry - challengeOrdered By: Dr. Williamson on 01-30-2022 Albumin [Mass/Vol] 3.6 g/dL 2.9-4.4 [facility] ALP [Catalytic activity/Vol] 70 U/L 45-117 [facility] ALT [Catalytic activity/Vol] 40 U/L 13-56 [facility] CO2 [Moles/Vol] 30.0 mmol/L 21.0-32.0 [facility] Globulin (S) [Mass/Vol] 4.8 g/dL 2.2-4.2 W [facility] Urea nitrogen/Creatinine [Mass ratio] 30.5 mg/mg 10-20 [facility] No Panel InformationOrdered By: Dr. Williamson on 01-30-2022 Addendum Document Comment . [facility] Comment on above: The SPE pattern appe ars unremarkable. Evidence ofmonoclonal protein is not apparent.Performed at: [employer] [address] [id number] Director: Jorge Guerrero PhD, Phone: [phone] Srwcg-4-Lrbweqbme 0.2 g/dL 0.0-0.4 [facility] Enece-9-Jktoeonfc 0.9 g/dL 0.4-1.0 [facility] Estimated GFR (MDRD) Amer 197 mL/min >60 [facility] Comment on above: GFR Calc Estimated GFR (MDRD) Non-Af Amer 163 mL/min >60 [facility] Comment on above: Non- GFR Calc Gamma Globulins 1.8 g/dL 0.4-1.8 [facility] Urine Microalbumin/Creatinine Ratio 8.3 mg/g CRE <30 [facility] Protein Fractions Elph [Inte rp]Ordered By: Dr. Williamson on 01-30-2022 Protein Fractions [Interp] Comment . [facility] Comment on above: Protein electrophore sis scan will follow via computer,mail, or director park delivery. Serum albumin to globulin ra sarah by protein electrophoresisOrdered By: Dr. Williamson on 01-30-2022 Albumin/Globulin Elph [Mass ratio] 0.9 0.7-1.7 [facility] Serum globulin measurement ( mass/volume)Ordered By: Dr. Williamson on 01-30-2022 Globulin (S) [Mass/Vol] 4.0 g/dL 2.2-3.9 [facility] Serum or plasma albumin aj urement (mass/volume)Ordered By: Dr. Williamson on 01-30-2022 Albumin [Mass/Vol] 3.3 g/dL 3.2-5.0 [facility] Serum or plasma albumin/glob ulin mass ratioOrdered By: Dr. Williamson on 01-30-2022 Albumin/Globulin [Mass ratio] 0.7 {ratio} 0.9-2.4 [facility] Serum or plasma beta globuli n measurement by electrophoresis (mass/volume)Ordered By: Dr. Williamson on 01-30-2022 Beta globulin Elph [Mass/Vol] 1.1 g/dL 0.7-1.3 [facility] Serum or plasma calcium aj urement (mass/volume)Ordered By: Dr. Williamson on 01-30-2022 Calcium [Mass/Vol] 9.0 mg/dL 8.5-10.1 [facility] Serum or plasma cholesterol in HDL measurement (mass/volume)Ordered By: Dr. Williamson on 01-30-2022 Cholesterol in HDL [Mass/Vol] 39 mg/dL >40 [facility] Comment on above: The drugs N-Acetylcy steine and Metamizole may falsely depress this assay. Reference Range HDL <40 mg/dL Low HDL Cholesterol HDL >or= 60 mg/dL High HDL Cholesterol Serum or plasma cholesterol in VLDL measurement (mass/volume)Ordered By: Dr. Williamson on 01-30-2022 Cholesterol in VLDL [Mass/Vol] 23 mg/dL 5-40 [facility] Serum or plasma creatinine m easurement (mass/volume)Ordered By: Dr. Williamson on 01-30-2022 Creatinine [Mass/Vol] 0.43 mg/dL 0.55-1.02 [facility] Comment on above: The validity of the calculated GFR & GFRAA in patients over 70 years has not been determined. Clinical correlation is essential. Serum or plasma low density lipoprotein (LDL) cholesterol measurement (mass/volume)Ordered By: Dr. Williamson on 01-30-2022 Cholesterol in LDL [Mass/Vol] 65 mg/dL 0-130 [facility] Serum or plasma urea nitroge n measurement (mass/volume)Ordered By: Dr. Williamson on 01-30-2022 Urea nitrogen [Mass/Vol] 13 mg/dL 7-18 [facility] Thin prep Papanicolaou smear with manual screeningOrdered By: Dr. Williamson on 01-30-2022 Thin prep Papanicolaou smear with manual screening 28 U/L 15-37 [facility] Thin prep Papanicolaou smear with manual screening 8 5-15 [facility] Thin prep Papanicolaou smear with manual screening 7.7 mg/L NO RANGE EST. [facility] Thin prep Papanicolaou smear with manual screening See comment [facility] Comment on above: Result: Not Observed Total protein bloodOrdered B y: Dr. Williamson on 01-30-2022 Protein [Mass/Vol] 7.6 g/dL 6.0-8.5 [facility] Urine creatinine measurement (mass/volume)Ordered By: Dr. Williamson on 01-30-2022 Creatinine (U) [Mass/Vol] 93.10 mg/dL NO RANGE EST. [facility] Whole blood hemoglobin A1c/t otal hemoglobin ratio (mass fraction)Ordered By: Dr. Williamson on 01-30-2022 HbA1c (Bld) [Mass fraction] 6.4 % 3.8-5.6 [facility] Comment on above: Normal < 5.7 % Predi abetic 5.7 - 6.4 % Diabetic >or= 6.5 % Please note range changes. CNOVon 10-19-2021 CNOV Office Visit (FAMPOR ) TAYLOR WESLEY ([id number]) 1965 F Date Time Provider Department 10/19/21 1:00 PM MEGAN CONKLIN During your visit today, we recorded the following information about you: Temperature Pulse Respiration Blood pressure 97.3 degrees 91/minute 16/minute 148/78 Megan Conklin DO 10/19/2021 1:23 PM Signed Taylor C Lilly 56 year old female seen today for The primary encounter diagnosis was Type 2 diabetes mellitus with other specified complication, without long-term current use of insulin (HCC). Diagnoses of Hypokalemia and Essential hypertension were also pertinent to this visit. HPI: Diabetes: A1c 6.1 K 3.2- eating super foods per nutrition Kidney function normal Amaryl 2 mg BID - no low blood sugars Hypokalemia: - has potassium 20 mg daily prn Has plan for mammogram every 6 months Current Outpatient Medications on File Prior to Visit Medication Sig ONETOUCH VERIO TEST STRIPS test strip USE TO TEST BLOOD SUGAR TWICE DAILY acetaminophen (TYLENOL) 325 mg tablet Take 2 tablets by mouth as needed. albuterol HFA (PROVENTIL HFA, VENTOLIN HFA) 90 mcg/actuation inhaler Inhale 2 Puffs as instructed as needed. Albuterol Sulfate 1.25 mg/3 mL nebulizer solution Use 1 Ampule via nebulizer as needed. ondansetron orally disintegrating (ZOFRAN ODT) 4 mg disintegrating tablet Take 1 tablet by mouth every 6 hours as needed. potassium chloride ER (K-DUR, KLOR-CON) 20 mEq tablet Take 1 tablet by mouth as needed. glimepiride (AMARYL) 2 mg tablet Take 2 mg by mouth twice daily with meals. indapamide (LOZOL) 2.5 mg tablet Take 2.5 mg by mouth once daily. diazePAM (VALIUM) 5 mg tablet as needed for anxiety (02/07/21 procedure). No current facility-administered medications on file prior to visit. HISTORIES FAMILY HISTORY Problem Relation Age of Onset Breast Cancer Mother 43 at 45 Ovarian cancer No Family History PAST MEDICAL HISTORY Diagnosis Date Paraplegia (HCC) Type 2 diabetes mellitus (HCC) Wheelchair bound PAST SURGICAL HISTORY Procedure Laterality Date BACK SURGERY HX BX OF BREAST; INCISIONAL Right 02/28/2021 Benign PAST SURGICAL HISTORY OF Thumb surgery TOTAL HIP REPLACEMENT Left Social History Tobacco Use Smoking status: Never Smokeless tobacco: Never Vaping Use Vaping Use: Never used Substance Use Topics Alcohol use: Yes Comment: occasionally Drug use: Never Review of Systems Constitutional: Negative for appetite change, chills and fever. Respiratory: Negative for cough and shortness of breath. Cardiovascular: Negative for chest pain, palpitations and leg swelling. Gastrointestinal: Negative for abdominal pain, blood in stool, constipation, diarrhea, nausea and vomiting. Endocrine: Negative for polydipsia and polyphagia. Genitourinary: Negative for dysuria, hematuria and urgency. Neurological: Negative for dizziness, light-headedness and headaches. 10/19/21 1254 BP: 148/78 BP Site: Left Arm BP Position: Sitting BP Cuff Size: Regular Adult Pulse: 91 Resp: 16 Temp: 36.3 ?C (97.3 ?F) TempSrc: Temporal SpO2: 96% Physical Exam Constitutional: General: She is not in acute distress. Appearance: She is not ill-appearing. Comments: In wheelchair HENT: Head: Normocephalic and atraumatic. Cardiovascular: Rate and Rhythm: Normal rate and regular rhythm. Pulses: Normal pulses. Heart sounds: Normal heart sounds. No murmur heard. No friction rub. No gallop. Pulmonary: Effort: Pulmonary effort is normal. Breath sounds: Normal breath sounds. No wheezing, rhonchi or rales. Musculoskeletal: Right lower leg: No edema. Left lower leg: No edema. Neurological: Mental Status: She is alert. ASSESSMENT and PLAN: Taylor was seen today for follow up, diabetes and results. Diagnoses and all orders for this visit: Type 2 diabetes mellitus with other specified complication, without long-term current use of insulin (HCC) - glimepiride (AMARYL) 2 mg tablet; Take 1 tablet by mouth twice daily with meals. Hypokalemia - potassium chloride ER (K-DUR, KLOR-CON) 20 mEq tablet; Take 1 tablet by mouth as needed. Essential hypertension - indapamide (LOZOL) 2.5 mg tablet; Take 1 tablet by mouth once daily. Diabetes is well controlled with A1c 6.1 BP well controlled- continue current medication Patient with K at 3.2- increase potassium foods, has potassium chloride to take as well. Megan Conklin DO October 19, 2021 1:03 PM Allergies As of Date: 10/19/2021 Noted Allergy Reaction AMOXICILLIN 05/13/2018 8 - GI Upset Date Reviewed: 10/19/2021 Reviewed by: Viridiana Guy MA - Fully Assessed Reason for Visit: Follow Up [171] Diabetes [34] Results [95] Primary Visit Diagnosis:Type 2 diabetes mellitus with other specified complication, without long-term current use of insulin (HCC) [E11.69 (more content not included)... Normal [facility] Absolute lymphocyte counton 10-16-2021 Lymphocytes Auto (Unsp spec) [#/Vol] 2.89 10*3/uL 0.83-4.51 [facility] Work Phone: Basophil percentageon 2021 Basophils/100 WBC (Bld) 0.5 % 0-1 [facility] Work Phone: Bilirubin [Mass/Vol] 0.70 mg/dL 0.20-1.00 [facility] Work Phone: Comment on above: For patients on eltr ombopag therapy, use of Dimension [place] TBIL is not recommended. Chloride [Moles/Vol] 102 mmol/L 98-107 [facility] Work Phone: [phone] Cholesterol [Mass/Vol] 130 mg/dL <200 [facility] Comment on above: <200 mg/dL Desirable 200-240 mg/dL Borderline >240 mg/dL High Risk Eosinophils/100 WBC (Bld) 4.6 % 0-5 [facility] Work Phone: Glucose [Mass/Vol] 100 mg/dL 74-106 [facility] Work Phone: Comment on above: Fasting Glucose resu lt from 100 to 125 mg/dL suggests IMPAIRED HOMEOSTASIS per A.D.A. criteria. Neutrophils (Bld) [#/Vol] 2.3 10*3/uL 2.0-7.7 [facility] Work Phone: Neutrophils/100 WBC (Bld) 37.6 % 47-70 [facility] Work Phone: Potassium [Moles/Vol] 3.2 mmol/L 3.5-5.1 [facility] Work Phone: Protein [Mass/Vol] 7.8 g/dL 6.4-8.2 [facility] Work Phone: Sodium [Moles/Vol] 136 mmol/L 136-145 [facility] Work Phone: Triglyceride [Mass/Vol] 128 mg/dL <199 [facility] Comment on above: The drugs N-Acetylcy steine and Metamizole may falsely depress this assay.Serum Triglycerides Reference Interval Normal <150 mg/dL Borderline high 150 - 199 mg/dL High 200 - 499 mg/dL Very High > or = 500 mg/dL WBC (Bld) [#/Vol] 6.1 10*3/uL 4.4-11.0 [facility] Work Phone: Blood erythrocytes count (nu mber/volume)on 10-16-2021 RBC (Bld) [#/Vol] 4.45 10*6/uL 4.2-5.4 [facility] Work Phone: Blood hemoglobin measurement (mass/volume)on 10-16-2021 Hemoglobin (Bld) [Mass/Vol] 12.9 g/dL 12.0-15.0 [facility] Work Phone: Blood lymphocytes/100 leukoc yteson 10-16-2021 Lymphocytes/100 WBC (Bld) 47.3 % 19-41 [facility] Work Phone: Blood monocytes/100 leukocyt eson 10-16-2021 Monocytes/100 WBC (Bld) 10.0 % 0-10 [facility] Work Phone: Blood platelet mean volumeon 10-16-2021 Platelet mean volume (Bld) [Entitic vol] 10.2 fL 6.2-12.0 [facility] Work Phone: CMP EXTERNAL QAIon 2 Albumin [facility] Alkaline Phosphatase [facility] ALT [facility] Anion Gap [facility] AST [facility] Bilirubin, Total [place] [facility] BUN [facility] Calcium [facility] Chloride [facility] CO2 [facility] Creatinine per volume [facility] eGFR-All Other Races 149 [facility] GFR/1.73 sq M.predicted among blacks MDRD (S/P/Bld) [Vol rate/Area] 181 mL/min/{1.73_m2} C [facility] Glucose [facility] Potassium [facility] Protein, Total [facility] Sodium [facility] Determination of erythrocyte mean corpuscular volume (MCV)on 10-16-2021 MCV (RBC) [Entitic vol] 90.1 fL 81-99 [facility] Work Phone: Hematocrit Auto (Bld) [Volum e fraction]on 10-16-2021 Hematocrit (Bld) [Volume fraction] 40.1 % 37-47 [facility] Work Phone: LIPID PANEL (OUTSIDE)on LDL:HDL Ratio [facility] Non-HDL Cholesterol [facility] TC:HDL Ratio [facility] VLDL Cholesterol [facility] Laboratory - Chemistry and C hemistry - challengeon 10-16-2021 ALP [Catalytic activity/Vol] 73 U/L 45-117 [facility] Work Phone: ALT [Catalytic activity/Vol] 34 U/L 13-56 [facility] Work Phone: CO2 [Moles/Vol] 29.0 mmol/L 21.0-32.0 [facility] Work Phone: Globulin (S) [Mass/Vol] 4.6 g/dL 2.2-4.2 [facility] Work Phone: Urea nitrogen/Creatinine [Mass ratio] 19.6 mg/mg 10-20 [facility] Work Phone: Laboratory - Hematology and Cell countson 10-16-2021 Erythrocyte distribution width (RBC) [Entitic vol] 44.3 fL 35.1-43.9 [facility] Work Phone: [phone] Erythrocyte distribution width (RBC) [Ratio] 13.5 % 11.6-14.6 [facility] Work Phone: Immature granulocytes/100 WBC (Bld) 0.000 % 0.0-0.9 [facility] Work Phone: Comment on above: IG% - Immature Granu locytes (promyelocytes, myelocytes and metamyelocytes) > 1% indicates that a LEFT SHIFT is Present. MCH (RBC) [Entitic mass] 29.0 pg 27.0-32.0 [facility] Work Phone: Nucleated RBC/100 WBC (Bld) [Ratio] 0 % 0-5 [facility] Work Phone: MCHC Auto (RBC) [Mass/Vol]on 10-16-2021 MCHC (RBC) [Mass/Vol] 32.2 g/dL 32-36 [facility] Work Phone: No Panel Informationon 10-16 Estimated GFR (MDRD) Amer 181 mL/min >60 [facility] Work Phone: Comment on above: GFR Calc Estimated GFR (MDRD) Non-Af Amer 149 mL/min >60 [facility] Work Phone: Comment on above: Non- GFR Calc Platelets bldon 10-16-2021 Platelets (Bld) [#/Vol] 309 10*3/uL 150-450 [facility] Work Phone: Serum or plasma albumin aj urement (mass/volume)on 10-16-2021 Albumin [Mass/Vol] 3.2 g/dL 3.2-5.0 [facility] Work Phone: Serum or plasma albumin/glob ulin mass ratioon 10-16-2021 Albumin/Globulin [Mass ratio] 0.7 {ratio} 0.9-2.4 [facility] Work Phone: Serum or plasma calcium aj urement (mass/volume)on 10-16-2021 Calcium [Mass/Vol] 9.5 mg/dL 8.5-10.1 [facility] Work Phone: Serum or plasma cholesterol in HDL measurement (mass/volume)on 10-16-2021 Cholesterol in HDL [Mass/Vol] 39 mg/dL >40 [facility] Comment on above: The drugs N-Acetylcy steine and Metamizole may falsely depress this assay. Reference Range HDL <40 mg/dL Low HDL Cholesterol HDL >or= 60 mg/dL High HDL Cholesterol Serum or plasma cholesterol in VLDL measurement (mass/volume)on 10-16-2021 Cholesterol in VLDL [Mass/Vol] 26 mg/dL 5-40 [facility] Work Phone: Serum or plasma creatinine m easurement (mass/volume)on 10-16-2021 Creatinine [Mass/Vol] 0.46 mg/dL 0.55-1.02 [facility] Work Phone: Comment on above: The validity of the calculated GFR & GFRAA in patients over 70 years has not been determined. Clinical correlation is essential. Serum or plasma low density lipoprotein (LDL) cholesterol measurement (mass/volume)on 10-16-2021 Cholesterol in LDL [Mass/Vol] 65 mg/dL 0-130 [facility] Serum or plasma urea nitroge n measurement (mass/volume)on 10-16-2021 Urea nitrogen [Mass/Vol] 9 mg/dL 7-18 [facility] Work Phone: Thin prep Papanicolaou smear with manual screeningon 10-16-2021 Thin prep Papanicolaou smear with manual screening 28 U/L 15-37 [facility] Work Phone: Thin prep Papanicolaou smear with manual screening 5 5-15 [facility] Work Phone: Whole blood hemoglobin A1c/t otal hemoglobin ratio (mass fraction)on 10-16-2021 HbA1c (Bld) [Mass fraction] 6.1 % 3.8-5.6 [facility] Comment on above: Normal < 5.7 % Predi abetic 5.7 - 6.4 % Diabetic >or= 6.5 % Please note range changes. Antonieta 09-14-2021 KAYDEN Telephone (PATITO) TAYLOR WESLEY ([id number]) 1965 F Date Time Provider Department 09/14/21 MILI MONCADA During your visit today, we recorded the following information about you: LEONARD Oliva 09/14/2021 12:59 PM Signed Results left on patient voicemail. Taylor Wesley's Custom Cancer Panel through [email or web address] was negative for a pathogenic variant. 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 Please see [employer] message for further discussion. LEONARD Oliva Licensed, Certified Genetic Counselor Allergies As of Date: 09/14/2021 Noted Allergy Reaction AMOXICILLIN 05/13/2018 8 - GI Upset Date Reviewed: 09/12/2021 Reviewed by: Megan Conklin DO - Fully Assessed Reason for Visit: Results [95] Cmt: genetic testing negative Prescriptions as of 09/14/2021 - ONETOUCH VERIO TEST STRIPS test strip USE TO TEST BLOOD SUGAR TWICE DAILY - acetaminophen (TYLENOL) 325 mg tablet Take 2 tablets by mouth as needed. - albuterol HFA (PROVENTIL HFA, VENTOLIN HFA) 90 mcg/actuation inhaler Inhale 2 Puffs as instructed as needed. - Albuterol Sulfate 1.25 mg/3 mL nebulizer solution Use 1 Ampule via nebulizer as needed. - ondansetron orally disintegrating (ZOFRAN ODT) 4 mg disintegrating tablet Take 1 tablet by mouth every 6 hours as needed. - potassium chloride ER (KLOR-CON M20) 20 mEq tablet Take 1 tablet by mouth as needed. - glimepiride (AMARYL) 2 mg tablet Take 2 mg by mouth twice daily with meals. - indapamide (LOZOL) 2.5 mg tablet Take 2.5 mg by mouth once daily. - diazePAM (VALIUM) 5 mg tablet as needed for anxiety (02/07/21 procedure). Problem List As Of Date 09/14/2021 Noted Resolved Type 2 diabetes mellitus (HCC) [E11.9] 02/07/2021 Obesity, Class II, BMI 35-39.9 [E66.9] 02/07/2021 Breast calcification, right [R92.1] 02/07/2021 Paraplegia (HCC) [G82.20] 02/07/2021 Wheelchair bound [Z99.3] 02/07/2021 At high risk for breast cancer [Z91.89] 03/07/2021 Abnormal mammogram [R92.8] 12/27/2020 Cerebral palsy (HCC) [G80.9] 05/13/2018 Community acquired pneumonia [J18.9] 09/12/2021 Constipation [K59.00] 05/14/2018 Elevated liver enzymes [R74.8] 11/02/2019 Essential hypertension [I10] 05/13/2018 Family history of malignant neoplasm of breast *05/13/2018 Generalized osteoarthritis [M15.9] 05/13/2018 Hemiplegic cerebral palsy (HCC) [G80.8] 09/12/2021 Hypokalemia [E87.6] 07/06/2020 Leg cramps [R25.2] 10/30/2019 Muscle cramps [R25.2] 09/12/2021 Pain in buttock [M79.18] 09/12/2021 Polydipsia [R63.1] 01/12/2021 Sepsis (HCC) [A41.9] 09/12/2021 Skin ulcer (HCC) [L98.499] 12/05/2020 Nonalcoholic fatty liver disease [K76.0] 12/04/2019 Vomiting [R11.10] 09/12/2021 Encounter Status:Closed by MILI MONCADA on 09/14/21 [facility] 09-12-2021 CNOV Office Visit (FAMPOR ) TAYLOR WESLEY ([id number]) 1965 F Date Time Provider Department 09/12/21 10:30 AM MEGAN CONKLIN During your visit today, we recorded the following information about you: Temperature Pulse Blood pressure 96.8 degrees 88/minute 125/83 Megan Conklin DO 09/14/2021 5:22 AM Signed Taylor Wesley 55 year old female seen today for The primary encounter diagnosis was Hemiplegic cerebral palsy (HCC). Diagnoses of Paraplegia (HCC) and Type 2 diabetes mellitus with other specified complication, without long-term current use of insulin (HCC) were also pertinent to this visit. HPI: Feeling well Cerebral Palsy: Wheelchair all the time for ambulation Mobility in legs minimal Has handicap placard- needs renewed Patient with paraplegia Current Outpatient Medications on File Prior to Visit Medication Sig - acetaminophen (TYLENOL) 325 mg tablet Take 2 tablets by mouth as needed. - albuterol HFA (PROVENTIL HFA, VENTOLIN HFA) 90 mcg/actuation inhaler Inhale 2 Puffs as instructed as needed. - Albuterol Sulfate 1.25 mg/3 mL nebulizer solution Use 1 Ampule via nebulizer as needed. - WorkTouch VERIO TEST STRIPS test strip USE TO TEST BLOOD SUGAR TWICE DAILY - ondansetron orally disintegrating (ZOFRAN ODT) 4 mg disintegrating tablet Take 1 tablet by mouth every 6 hours as needed. - potassium chloride ER (KLOR-CON M20) 20 mEq tablet Take 1 tablet by mouth as needed. - glimepiride (AMARYL) 2 mg tablet Take 2 mg by mouth twice daily with meals. - indapamide (LOZOL) 2.5 mg tablet Take 2.5 mg by mouth once daily. - diazePAM (VALIUM) 5 mg tablet as needed for anxiety (02/07/21 procedure). No current facility-administered medications on file prior to visit. HISTORIES FAMILY HISTORY Problem Relation Age of Onset - Breast Cancer Mother 43 at 45 - Ovarian cancer No Family History PAST MEDICAL HISTORY Diagnosis Date - Paraplegia (HCC) - Type 2 diabetes mellitus (HCC) - Wheelchair bound PAST SURGICAL HISTORY Procedure Laterality Date - BACK SURGERY HX - BX OF BREAST; INCISIONAL Right 02/28/2021 Benign - PAST SURGICAL HISTORY OF Thumb surgery - TOTAL HIP REPLACEMENT Left Social History Tobacco Use - Smoking status: Never Smoker - Smokeless tobacco: Never Used Vaping Use - Vaping Use: Never used Substance Use Topics - Alcohol use: Never - Drug use: Never Review of Systems Constitutional: Negative for appetite change, chills and fever. Respiratory: Negative for cough and shortness of breath. Cardiovascular: Negative for chest pain, palpitations and leg swelling. Gastrointestinal: Negative for abdominal pain, blood in stool, constipation, diarrhea, nausea and vomiting. Endocrine: Negative for polydipsia and polyphagia. Genitourinary: Negative for dysuria, hematuria and urgency. Neurological: Negative for dizziness, light-headedness and headaches. 09/12/21 1035 BP: 125/83 BP Site: Left Arm BP Position: Sitting BP Cuff Size: Large Adult Pulse: 88 Temp: 36 ?C (96.8 ?F) TempSrc: Temporal Physical Exam Vitals reviewed. Constitutional: Appearance: Normal appearance. Cardiovascular: Rate and Rhythm: Normal rate and regular rhythm. Heart sounds: No murmur heard. No friction rub. No gallop. Pulmonary: Breath sounds: Normal breath sounds. No wheezing, rhonchi or rales. Musculoskeletal: Right lower leg: No edema. Left lower leg: No edema. Comments: Seated in wheelchair- belted in wheelchair Unable to lean forward without assistance Significant weakness in LE- little mobility Weakness in core Neurological: Mental Status: She is alert. Psychiatric: Thought Content: Thought content normal. Judgment: Judgment normal. ASSESSMENT and PLAN: Taylor was seen today for paperwork for wheelchair. Diagnoses and all orders for this visit: Hemiplegic cerebral palsy (HCC) Paraplegia (HCC) Type 2 diabetes mellitus with other specified complication, without long-term current use of insulin ([facility]) - LIPID PANEL BASIC; Future - HGB A1C; Future - CBC + DIFF; Future - COMP METABOLIC PANEL; Future Patient with hemiplegiic cerebral palsy She is wheelchair bound with little mobility in her legs On exam she has significant weakness in core- unable to lean forward without assistance, seated in wheelchair with seatbelt Filled out paperwork for handicap placard With little mobility would benefit from home modifications- home needs to be handicap accessible with widened doorways, ramp for access to the home, counters and bathroom vanities lowered for access, showers wheelchair accessible Megan Conklin DO 09/12/21 Referring Provider: MEGAN CONKLIN [[id number]] Allergies As of Date: 09/12/2021 Noted Allergy Reaction AMOXICILLIN 05/13/2018 8 - GI Upset Date Reviewed: 09/12/2021 Reviewed by: DO Davis Montoya (more content not included)... Normal [facility] GUILLERMINA DIAGNOSTIC RTon 09-02-19 [facility] Absolute lymphocyte counton 06-15-2021 Lymphocytes Auto (Unsp spec) [#/Vol] 2.87 10*3/uL 0.83-4.51 [facility] Work Phone: Basophil percentageon 2021 Basophils/100 WBC (Bld) 0.5 % 0-1 [facility] Work Phone: Chloride [Moles/Vol] 104 mmol/L 98-107 [facility]: Eosinophils/100 WBC (Bld) 4.7 % 0-5 [facility] Work Phone: Glucose [Mass/Vol] 98 mg/dL 74-106 [facility] Work Phone: Neutrophils (Bld) [#/Vol] 3.7 10*3/uL 2.0-7.7 [facility] Work Phone: Neutrophils/100 WBC (Bld) 48.5 % 47-70 [facility] Work Phone: Potassium [Moles/Vol] 3.7 mmol/L 3.5-5.1 [facility] Work Phone: Comment on above: Slight Hemolysis, Re sult may be falsely increased. Sodium [Moles/Vol] 137 mmol/L 136-145 [facility] Work Phone: WBC (Bld) [#/Vol] 7.7 10*3/uL 4.4-11.0 [facility] Work Phone: [phone] Blood erythrocytes count (nu mber/volume)on 06-15-2021 RBC (Bld) [#/Vol] 4.72 10*6/uL 4.2-5.4 [facility] Work Phone: Blood hemoglobin measurement (mass/volume)on 06-15-2021 Hemoglobin (Bld) [Mass/Vol] 14.0 g/dL 12.0-15.0 [facility] Work Phone: [phone] Blood lymphocytes/100 leukoc yteson 06-15-2021 Lymphocytes/100 WBC (Bld) 37.5 % 19-41 [facility] Work Phone: Blood manual differential co mment interpretation (narrative result)on 06-15-2021 Manual differential comment Barrie (Bld) [Interp] SCANNED [facility] Work Phone: Blood monocytes/100 leukocyt eson 06-15-2021 Monocytes/100 WBC (Bld) 8.5 % 0-10 [facility] Work Phone: Blood platelet mean volumeon 06-15-2021 Platelet mean volume (Bld) [Entitic vol] 9.6 fL 6.2-12.0 [facility] Work Phone: Determination of erythrocyte mean corpuscular volume (MCV)on 06-15-2021 MCV (RBC) [Entitic vol] 89.4 fL 81-99 [facility] Work Phone: Hematocrit Auto (Bld) [Volum e fraction]on 06-15-2021 Hematocrit (Bld) [Volume fraction] 42.2 % 37-47 [facility] Work Phone: Laboratory - Chemistry and C hemistry - challengeon 06-15-2021 CO2 [Moles/Vol] 29.0 mmol/L 21.0-32.0 [facility] Work Phone: Magnesium [Mass/Vol] 2.0 mg/dL 1.6-2.6 [facility] Work Phone: Comment on above: Slight Hemolysis, Re sult may be falsely increased. Urea nitrogen/Creatinine [Mass ratio] 34.4 mg/mg 10-20 [facility] Work Phone: Laboratory - Hematology and Cell countson 06-15-2021 Erythrocyte distribution width (RBC) [Entitic vol] 42.4 fL 35.1-43.9 [facility] Work Phone: Erythrocyte distribution width (RBC) [Ratio] 12.9 % 11.6-14.6 [facility] Work Phone: Immature granulocytes/100 WBC (Bld) 0.300 % 0.0-0.9 [facility] Work Phone: Comment on above: IG% - Immature Granu locytes (promyelocytes, myelocytes and metamyelocytes) > 1% indicates that a LEFT SHIFT is Present. MCH (RBC) [Entitic mass] 29.7 pg 27.0-32.0 [facility] Work Phone: Nucleated RBC/100 WBC (Bld) [Ratio] 0 % 0-5 [facility] Work Phone: MCHC Auto (RBC) [Mass/Vol]on 06-15-2021 MCHC (RBC) [Mass/Vol] 33.2 g/dL 32-36 [facility] Work Phone: No Panel Informationon 06-15 Estimated Creatinine Clearance Calc 188.00 ml/min [facility] Work Phone: Estimated GFR (MDRD) Amer 179 mL/min >60 [facility] Work Phone: Comment on above: GFR Calc Estimated GFR (MDRD) Non-Af Amer 148 mL/min >60 [facility] Work Phone: Comment on above: Non- GFR Calc Platelets bldon 06-15-2021 Platelets (Bld) [#/Vol] 335 10*3/uL 150-450 [facility] Work Phone: Serum or plasma calcium aj urement (mass/volume)on 06-15-2021 Calcium [Mass/Vol] 10.2 mg/dL 8.5-10.1 [facility] Work Phone: Serum or plasma creatinine m easurement (mass/volume)on 06-15-2021 Creatinine [Mass/Vol] 0.46 mg/dL 0.55-1.02 [facility] Work Phone: Comment on above: The validity of the calculated GFR & GFRAA in patients over 70 years has not been determined. Clinical correlation is essential. Serum or plasma urea nitroge n measurement (mass/volume)on 06-15-2021 Urea nitrogen [Mass/Vol] 16 mg/dL 7-18 [facility] Work Phone: Thin prep Papanicolaou smear with manual screeningon 06-15-2021 Thin prep Papanicolaou smear with manual screening 4 5-15 [facility] Work Phone: Basophil percentageon 2021 Chloride [Moles/Vol] 101 mmol/L 98-107 [facility] Work Phone: Glucose [Mass/Vol] 89 mg/dL 74-106 [facility] Work Phone: Potassium [Moles/Vol] 3.4 mmol/L 3.5-5.1 [facility] Work Phone: Sodium [Moles/Vol] 136 mmol/L 136-145 [facility] Work Phone: Laboratory - Chemistry and C hemistry - challengeon 06-13-2021 CO2 [Moles/Vol] 32.0 mmol/L 21.0-32.0 [facility] Work Phone: Urea nitrogen/Creatinine [Mass ratio] 20.4 mg/mg 10-20 [facility] Work Phone: No Panel Informationon 06-13 Estimated GFR (MDRD) Amer 136 mL/min >60 [facility] Work Phone: Comment on above: GFR Calc Estimated GFR (MDRD) Non-Af Amer 112 mL/min >60 [facility] Work Phone: Comment on above: Non- GFR Calc Serum or plasma calcium aj urement (mass/volume)on 06-13-2021 Calcium [Mass/Vol] 9.7 mg/dL 8.5-10.1 [facility] Work Phone: Serum or plasma creatinine m easurement (mass/volume)on 06-13-2021 Creatinine [Mass/Vol] 0.59 mg/dL 0.55-1.02 [facility] Work Phone: Comment on above: The validity of the calculated GFR & GFRAA in patients over 70 years has not been determined. Clinical correlation is essential. Serum or plasma urea nitroge n measurement (mass/volume)on 06-13-2021 Urea nitrogen [Mass/Vol] 12 mg/dL 7-18 [facility] Work Phone: Thin prep Papanicolaou smear with manual screeningon 06-13-2021 Thin prep Papanicolaou smear with manual screening 3 5-15 [facility] Work Phone: Basophil percentageon 2021 Chloride [Moles/Vol] 100 mmol/L 98-107 [facility] Work Phone: Glucose [Mass/Vol] 105 mg/dL 74-106 [facility] Work Phone: Comment on above: Fasting Glucose resu lt from 100 to 125 mg/dL suggests IMPAIRED HOMEOSTASIS per A.D.A. criteria. Potassium [Moles/Vol] 3.0 mmol/L 3.5-5.1 [facility] Work Phone: Sodium [Moles/Vol] 137 mmol/L 136-145 [facility] Work Phone: Laboratory - Chemistry and C hemistry - challengeon 06-06-2021 CO2 [Moles/Vol] 31.0 mmol/L 21.0-32.0 [facility] Work Phone: Urea nitrogen/Creatinine [Mass ratio] 32.8 mg/mg 10-20 [facility] Work Phone: No Panel Informationon 06-06 Estimated GFR (MDRD) Amer 182 mL/min >60 [facility] Work Phone: Comment on above: GFR Calc Estimated GFR (MDRD) Non-Af Amer 151 mL/min >60 [facility] Work Phone: Comment on above: Non- GFR Calc Serum or plasma calcium aj urement (mass/volume)on 06-06-2021 Calcium [Mass/Vol] 10.0 mg/dL 8.5-10.1 [facility] Work Phone: Serum or plasma creatinine m easurement (mass/volume)on 06-06-2021 Creatinine [Mass/Vol] 0.46 mg/dL 0.55-1.02 [facility] Work Phone: Comment on above: The validity of the calculated GFR & GFRAA in patients over 70 years has not been determined. Clinical correlation is essential. Serum or plasma urea nitroge n measurement (mass/volume)on 06-06-2021 Urea nitrogen [Mass/Vol] 15 mg/dL 7-18 [facility] Work Phone: Thin prep Papanicolaou smear with manual screeningon 06-06-2021 Thin prep Papanicolaou smear with manual screening 6 5-15 [facility] Work Phone: CBC W/DIFFon 05-04-2021 BASO ABS 0.10 K/CU MM Normal 0-0.2 [facility] Comment on above: Performed By: #### L [id number], [id number] #### [facility] [address] [place] [address] Basophils/100 WBC (Bld) 0.8 % Normal 0-2 [facility] Comment on above: Performed By: #### L 550.50084, L200.79126 #### [facility] [address] [place] [address] EOS ABS 0.20 K/CU MM Normal 0-0.5 [facility] Comment on above: Performed By: #### L 550.42600, [id number] #### [facility] [address] [place] [address] Eosinophils/100 WBC (Bld) 3.3 % Normal 0-5 [facility] Comment on above: Performed By: #### L 550.73146, [id number] #### [facility] [address] [place] [address] Erythrocyte distribution width (RBC) [Ratio] 13.2 % Normal 11-14.5 [facility] Comment on above: Performed By: #### L 550.45458, L200.03970 #### [facility] [address] [place] [address] Hematocrit (Bld) [Volume fraction] 41.1 % Normal 35.0-47.0 [facility] Comment on above: Performed By: #### L 550.86015, L200.77307 #### [facility] [address] [place] [address] Hemoglobin (Bld) [Mass/Vol] 13.2 g/dL Normal 11.5-15.5 [facility] Comment on above: Performed By: #### L 550.39505, L200.88989 #### [facility] [address] [place] [address] IMMATR GRAN ABS 0.00 K/CU MM Normal Less than 2 [facility] Comment on above: Performed By: #### L 550.02324, L200.76986 #### [facility] [address] [place] [address] IMMATURE GRAN % 0.2 % Normal Less than 2 [facility] Comment on above: Performed By: #### L 550.86209, L200.34786 #### [facility] [address] [place] [address] LYMPH ABS 2.70 K/CU MM Normal 0.9-4.4 [facility] Comment on above: Performed By: #### L 550.35011, [id number] #### [facility] [address] [place] [address] Lymphocytes/100 WBC (Bld) 43.9 % High 20-40 [facility] Comment on above: Performed By: #### L 550.67526, L200.02923 #### [facility] [address] [place] [address] MCHC (RBC) [Mass/Vol] 32.1 g/dL Normal 32.0-36.0 [facility] Comment on above: Performed By: #### L 550.36916, L200.79219 #### [facility] [address] [place] [address] MCV (RBC) [Entitic vol] 90.3 fL Normal 80.0-99.0 [facility] Comment on above: Performed By: #### L 550.02877, L200.01781 #### [facility] [address] [place] [address] MONO ABS 0.60 K/CU MM Normal 0.1-1.1 [facility] Comment on above: Performed By: #### L 550.00915, L200.08228 #### [facility] [address] [place] [address] Monocytes/100 WBC (Bld) 9.3 % Normal 2-10 [facility] Comment on above: Performed By: #### L 550.76759, L200.36646 #### [facility] [address] [place] [address] NEUTROPHIL ABS 2.60 K/CU MM Normal 2.0-8.3 [facility] Comment on above: Performed By: #### L 550.75909, L200.47461 #### [facility] [address] [place] [address] Neutrophils/100 WBC (Bld) 42.5 % Low 45-75 [facility] Comment on above: Performed By: #### L 550.90094, L200.38255 #### [facility] [address] [place] [address] Nucleated RBC/100 WBC (Bld) [Ratio] 0.0 % Normal Less than 1 [facility] Comment on above: Performed By: #### L 550.13086, L200.05405 #### [facility] [address] [place] [address] Platelet mean volume (Bld) [Entitic vol] 10.5 fL Normal 9.4-12.4 [facility] Comment on above: Performed By: #### L 550.86781, L200.68953 #### [facility] [address] [place] [address] PLT 382 K/CU MM Normal 150-450 [facility] Comment on above: Performed By: #### L 550.58286, L200.72177 #### [facility] [address] [place] [address] RBC 4.55 M/CU MM Normal 3.90-5.30 [facility] Comment on above: Performed By: #### L 550.08146, L200.28556 #### [facility] [address] [place], [place] [id number] WBC 6.1 K/CUMM Normal 4.5-11.0 [facility] Comment on above: Performed By: #### L 550.11386, L200.93828 #### [facility] [address] [place] [address] CMPon 05-04-2021 Albumin [Mass/Vol] 3.8 g/dL Normal 3.2-5.0 [facility] Comment on above: Performed By: #### L 550.56818, L200.72324 #### [facility] [address] [place], [place] [id number] Albumin/Globulin [Mass ratio] 0.9 {ratio} Normal 0.8-2.0 [facility] Comment on above: Performed By: #### L 550.77177, L200.90316 #### [facility] [address] [place] [address] ALK PHOS 79 U/L Normal 45-117 [facility] Comment on above: Performed By: #### L 550.11474, L200.72813 #### [facility] [address] [id number] ALT [Catalytic activity/Vol] 41 U/L Normal 13-61 [facility] Comment on above: Result Comment: RESU LTS MAY BE FALSELY DEPRESSED AFTER THE ADMINISTRATION OF SULFASALAZINE AND/OR SULFAPYRIDINE. Performed By: #### L 550.81619, L200.86333 #### [facility] [address] [place] [address] Anion gap [Moles/Vol] 9 mmol/L Normal 5-16 [facility] Comment on above: Performed By: #### L 550.00051, L200.71011 #### [facility] [address] [place] [address] AST [Catalytic activity/Vol] 28 U/L Normal 8-34 [facility] Comment on above: Result Comment: RESU LTS MAY BE FALSELY DEPRESSED AFTER THE ADMINISTRATION OF SULFASALAZINE AND/OR SULFAPYRIDINE. Performed By: #### L 550.54125, L200.78467 #### [facility] [address] [place] [address] BILI TOTAL 0.80 MG/DL Normal 0.2-1.0 [facility] Comment on above: Performed By: #### L 550.94707, L200.32677 #### [facility] [address] [place], [place] [id number] Calcium [Mass/Vol] 10.5 mg/dL Normal 8.5-10.5 [facility] Comment on above: Result Comment: NOTE NEW NORMAL RANGE DUE TO REAGENT CHANGE Performed By: #### L 550.32273, L200.23513 #### [facility] [place] [address] Chloride [Moles/Vol] 100 mmol/L Normal 98-107 [facility] Comment on above: Performed By: #### L 550.03236, L200.92969 #### [facility] [place] [address] CO2 [Moles/Vol] 29.0 mmol/L Normal 21-32 [facility] Comment on above: Performed By: #### L 550.12680, L200.10856 #### [facility] [place] [address] Creatinine [Mass/Vol] 0.38 mg/dL Low 0.510-0.950 [facility] Comment on above: Result Comment: Shanice ents receiving either N-Acetylcysteine (NAC) or Metamizole prior to venipuncture, may have falsely depressed results. Performed By: #### L 550.21527, L200.39293 #### [facility] [address] [place] [address] Globulin (S) [Mass/Vol] 4.2 g/dL Normal 2.2-4.2 [facility] Comment on above: Performed By: #### L 550.71518, L200.88488 #### [facility] [address] [place] [address] Glucose [Mass/Vol] 84 mg/dL Normal 70-100 [facility] Comment on above: Result Comment: 70-1 00- Normal Fasting; 100-125 Impaired Fasting; greater than 126 on more than one result- Diabetes. ADA guidelines. Results may be falsely elevated after the administration of Sulfapyridine. Results may be falsely depressed after the administration of Sulfasalazine. Performed By: #### L 550.02311, L200.41901 #### [facility] [address] [place] [address] Potassium [Moles/Vol] 3.2 mmol/L Low 3.5-5.1 [facility] Comment on above: Performed By: #### L 550.61431, L200.59110 #### [facility] [address] [place] [address] Protein [Mass/Vol] 8.0 g/dL Normal 6.0-8.5 [facility] Comment on above: Performed By: #### L 550.37473, L200.49361 #### [facility] [address] [place] [address] Sodium [Moles/Vol] 138 mmol/L Normal 136-145 [facility] Comment on above: Performed By: #### L 550.12665, L200.42829 #### [facility] [address] [place], [place] [id number] Urea nitrogen [Mass/Vol] 12 mg/dL Normal 7-26 [facility] Comment on above: Performed By: #### L 550.16991, L200.08620 #### [facility] [address] [place] [address] Urea nitrogen/Creatinine [Mass ratio] 32 mg/mg High 15- [facility] Comment on above: Performed By: #### L 550.64116, L200.00498 #### [facility] [address] [place], [place] [id number] GFR ESTon 05-04-2021 IF AMER Greater than 60 Normal [facility] Comment on above: Performed By: #### L 550.02765, L200.46917 #### [facility] [address] [place] [address] IF non-AFR AMER Greater than 60 Normal [facility] Comment on above: Performed By: #### L 550.45253, L200.30596 #### [facility] [address] [place] [address] HGB A1C GLYCOHBon 05-04-2021 HbA1c (Bld) [Mass fraction] 5.9 % Normal 4.3-6.0 [facility] Comment on above: Performed By: #### L 550.68488, L200.88952 #### [facility] [address] [place] [address] Laboratory - Microbiology an d Antimicrobial susceptibilityon 04-16-2021 SARS-CoV-2 (COVID-19) RNA SHARA+probe Ql (Unsp spec) Not detected [facility] Work Phone: No Panel Informationon 04-16 Influenza Types A,B Rapid (Clinic) Not detected [facility] Work Phone: [facility] RTon 02-29-20 [facility] US BIOPSY BREAST RTon 2020 [facility] GUILLERMINA DIAGNOSTIC RTon 02-08-20 [facility] No Panel Informationon 02-07 [facility] CMPon 01-12-2021 Albumin [Mass/Vol] 4.1 g/dL Normal 3.2-5.0 [facility] Comment on above: Performed By: #### L 500.91974, L500.95043 #### [facility] [address] [place] [address] 45571 Albumin/Globulin [Mass ratio] 1.0 {ratio} Normal 0.8-2.0 [facility] Comment on above: Performed By: #### L 500.97294, L500.30637 #### [facility] [address] [place] [address] 89799 ALK PHOS 96 U/L Normal 45-117 [facility] Comment on above: Performed By: #### L 500.84542, L500.08290 #### [facility] [address] [place] [address] 39235 ALT [Catalytic activity/Vol] 93 U/L High 13-61 [facility] Comment on above: Result Comment: RESU LTS MAY BE FALSELY DEPRESSED AFTER THE ADMINISTRATION OF SULFASALAZINE AND/OR SULFAPYRIDINE. Performed By: #### L 500.57396, L500.33057 #### [facility] [address] [place] [address] 16462 Anion gap [Moles/Vol] 10 mmol/L Normal 5-16 [facility] Comment on above: Performed By: #### L 500.08772, L500.09999 #### [facility] [place] [address] AST [Catalytic activity/Vol] 108 U/L High 8-34 [facility] Comment on above: Result Comment: RESU LTS MAY BE FALSELY DEPRESSED AFTER THE ADMINISTRATION OF SULFASALAZINE AND/OR SULFAPYRIDINE. Performed By: #### L 500.41858, L500.88386 #### [facility] [address] [place] [address] BILI TOTAL 1.10 MG/DL High 0.2-1.0 [facility] Comment on above: Performed By: #### L 500.30426, L500.29092 #### [facility] [address] [place] [address] Calcium [Mass/Vol] 10.1 mg/dL Normal 8.5-10.5 [facility] Comment on above: Result Comment: NOTE NEW NORMAL RANGE DUE TO REAGENT CHANGE Performed By: #### L 500.95881, L500.15770 #### [facility] [address] [place] [address] Chloride [Moles/Vol] 95 mmol/L Low 98-107 [facility] Comment on above: Performed By: #### L 500.35913, L500.86894 #### [facility] [address] [place], [place] [address] CO2 [Moles/Vol] 31.0 mmol/L Normal 21-32 [facility] Comment on above: Performed By: #### L 500.81132, L500.59296 #### [facility] [address] [place], [place] [address] Creatinine [Mass/Vol] 0.41 mg/dL Low 0.510-0.950 [facility] Comment on above: Result Comment: Shanice ents receiving either N-Acetylcysteine (NAC) or Metamizole prior to venipuncture, may have falsely depressed results. Performed By: #### L 500.16281, L500.64687 #### [facility] [place] [address] Globulin (S) [Mass/Vol] 4.3 g/dL High 2.2-4.2 [facility] Comment on above: Performed By: #### L 500.09026, L500.12747 #### [facility] [address] [place] [address] 15676 Glucose [Mass/Vol] 255 mg/dL High 70-100 [facility] Comment on above: Result Comment: 70-1 00- Normal Fasting; 100-125 Impaired Fasting; greater than 126 on more than one result- Diabetes. ADA guidelines. Results may be falsely elevated after the administration of Sulfapyridine. Results may be falsely depressed after the administration of Sulfasalazine. Performed By: #### L 500.36802, L500.23800 #### [facility] [address] [place] [address] Potassium [Moles/Vol] 3.5 mmol/L Normal 3.5-5.1 [facility] Comment on above: Result Comment: Slig ht Hemolysis, Result may be affected. Performed By: #### L 500.17567, L500.56865 #### [facility] [place] [address] Protein [Mass/Vol] 8.4 g/dL Normal 6.0-8.5 [facility] Comment on above: Performed By: #### L 500.45059, L500.36978 #### [facility] [place] [address] Sodium [Moles/Vol] 135 mmol/L Low 136-145 [facility] Comment on above: Performed By: #### L 500.30770, L500.94557 #### [facility] [address] [place] [address] 45537 Urea nitrogen [Mass/Vol] 13 mg/dL Normal 7-26 [facility] Comment on above: Performed By: #### L 500.69745, L500.54209 #### [facility] [address] [place] [address] 94380 Urea nitrogen/Creatinine [Mass ratio] 32 mg/mg High 15-24 [facility] Comment on above: Performed By: #### L 500.33116, L500.35056 #### [facility] [address] [place], [place] [address] GFR ESTon 01-12-2021 IF AMER Greater than 60 Normal [facility] Comment on above: Performed By: #### L 500.42234, L500.91555 #### [facility] [address] [place], [place] [address] IF non-AFR AMER Greater than 60 Normal [facility] Comment on above: Performed By: #### L 500.01200, L500.90775 #### [facility] [address] [place], [place] [address] HGB A1C GLYCOHBon 01-12-2021 HbA1c (Bld) [Mass fraction] 9.9 % High 4.3-6.0 [facility] Comment on above: Performed By: #### L 550.74603, L200.62238 #### [facility] [address] [place] [address] 23567 CBC W/DIFFon 12-13-2020 BASO ABS 0.00 K/CU MM Normal 0-0.2 [facility] Comment on above: Performed By: #### L 550.08565, L200.35463 #### [facility] [address] [place] [address] Basophils/100 WBC (Bld) 0.6 % Normal 0-2 [facility] Comment on above: Performed By: #### L 550.40355, L200.22994 #### [facility] [address] [place] [address] EOS ABS 0.30 K/CU MM Normal 0-0.5 [facility] Comment on above: Performed By: #### L 550.90842, L200.16459 #### [facility] [address] [place] [address] Eosinophils/100 WBC (Bld) 3.6 % Normal 0-5 [facility] Comment on above: Performed By: #### L 550.96066, L200.81422 #### [facility] [address] [place] [address] Erythrocyte distribution width (RBC) [Ratio] 13.2 % Normal 11-14.5 [facility] Comment on above: Performed By: #### L 550.72026, L200.01253 #### [facility] [address] [place] [address] Hematocrit (Bld) [Volume fraction] 44.4 % Normal 35.0-47.0 [facility] Comment on above: Performed By: #### L 550.17742, L200.80385 #### [facility] [address] [place] [address] Hemoglobin (Bld) [Mass/Vol] 13.9 g/dL Normal 11.5-15.5 [facility] Comment on above: Performed By: #### L 550.68873, L200.91164 #### [facility] [address] [place] [address] IMMATR GRAN ABS 0.00 K/CU MM Normal Less than 2 [facility] Comment on above: Performed By: #### L 550.65221, L200.43597 #### [facility] [address] [place] [address] IMMATURE GRAN % 0.1 % Normal Less than 2 [facility] Comment on above: Performed By: #### L 550.65117, L200.94535 #### [facility] [address] [place] [address] LYMPH ABS 2.90 K/CU MM Normal 0.9-4.4 [facility] Comment on above: Performed By: #### L 550.33370, L200.60119 #### [facility] [address] [place] [address] Lymphocytes/100 WBC (Bld) 40.2 % High 20-40 [facility] Comment on above: Performed By: #### L 550.83795, L200.15228 #### [facility] [address] [place] [address] MCHC (RBC) [Mass/Vol] 31.3 g/dL Low 32.0-36.0 [facility] Comment on above: Performed By: #### L 550.02658, L200.53103 #### [facility] [address] [place] [address] MCV (RBC) [Entitic vol] 93.1 fL Normal 80.0-99.0 [facility] Comment on above: Performed By: #### L 550.12107, L200.83857 #### [facility] [address] [place] [address] MONO ABS 0.60 K/CU MM Normal 0.1-1.1 [facility] Comment on above: Performed By: #### L 550.64407, L200.39381 #### [facility] [address] [place] [address] Monocytes/100 WBC (Bld) 8.8 % Normal 2-10 [facility] Comment on above: Performed By: #### L 550.73701, L200.50149 #### [facility] [address] [place], [place] [address] NEUTROPHIL ABS 3.40 K/CU MM Normal 2.0-8.3 [facility] Comment on above: Performed By: #### L 550.73169, L200.94292 #### [facility] [address] [place] [address] Neutrophils/100 WBC (Bld) 46.7 % Normal 45-75 [facility] Comment on above: Performed By: #### L 550.53085, L200.39581 #### [facility] [address] [place] [address] Nucleated RBC/100 WBC (Bld) [Ratio] 0.0 % Normal Less than 1 [facility] Comment on above: Performed By: #### L 550.65608, L200.41803 #### [facility] [address] [place], [place] [address] Platelet mean volume (Bld) [Entitic vol] 10.7 fL Normal 9.4-12.4 [facility] Comment on above: Performed By: #### L 550.24299, L200.71797 #### [facility] [address] [place], [place] [address] PLT 336 K/CU MM Normal 150-450 [facility] Comment on above: Performed By: #### L 550.16990, L200.45986 #### [facility] [address] [place], [place] [address] RBC 4.77 M/CU MM Normal 3.90-5.30 [facility] Comment on above: Performed By: #### L 550.11709, L200.40625 #### [facility] [address] [place] [address] WBC 7.2 K/CUMM Normal 4.5-11.0 [facility] Comment on above: Performed By: #### L 550.05054, L200.64089 #### [facility] [address] [place] [address] CMPon 12-13-2020 Albumin [Mass/Vol] 3.9 g/dL Normal 3.2-5.0 [facility] Comment on above: Performed By: #### L 550.90915, L200.67390 #### [facility] [place] [address] Albumin/Globulin [Mass ratio] 0.9 {ratio} Normal 0.8-2.0 [facility] Comment on above: Performed By: #### L 550.27840, L200.98207 #### [facility] [address] [place] [address] ALK PHOS 92 U/L Normal 45-117 [facility] Comment on above: Performed By: #### L 550.72155, L200.13236 #### [facility] [address] [place] [address] 26882 ALT [Catalytic activity/Vol] 101 U/L High 13-61 [facility] Comment on above: Result Comment: RESU LTS MAY BE FALSELY DEPRESSED AFTER THE ADMINISTRATION OF SULFASALAZINE AND/OR SULFAPYRIDINE. Performed By: #### L 550.13853, L200.10070 #### [facility] [place] [address] Anion gap [Moles/Vol] 8 mmol/L Normal 5-16 [facility] Comment on above: Performed By: #### L 550.78109, L200.87653 #### [facility] [place] [address] AST [Catalytic activity/Vol] 119 U/L High 8-34 [facility] Comment on above: Result Comment: RESU LTS MAY BE FALSELY DEPRESSED AFTER THE ADMINISTRATION OF SULFASALAZINE AND/OR SULFAPYRIDINE. Performed By: #### L 550.76557, L200.33723 #### [facility] [place] [address] BILI TOTAL 0.80 MG/DL Normal 0.2-1.0 [facility] Comment on above: Performed By: #### L 550.84437, L200.03410 #### [facility] [address] [place] [address] Calcium [Mass/Vol] 10.7 mg/dL High 8.5-10.5 [facility] Comment on above: Result Comment: NOTE NEW NORMAL RANGE DUE TO REAGENT CHANGE Performed By: #### L 550.75636, L200.58112 #### [facility] [address] [place] [address] Chloride [Moles/Vol] 98 mmol/L Normal 98-107 [facility] Comment on above: Performed By: #### L 550.56611, L200.23842 #### [facility] [address] [place] [address] CO2 [Moles/Vol] 30.0 mmol/L Normal 21-32 [facility] Comment on above: Performed By: #### L 550.62321, L200.38707 #### [facility] [address] [place] [address] Creatinine [Mass/Vol] 0.40 mg/dL Low 0.510-0.950 [facility] Comment on above: Result Comment: Shanice ents receiving either N-Acetylcysteine (NAC) or Metamizole prior to venipuncture, may have falsely depressed results. Performed By: #### L 550.70550, L200.20320 #### [facility] [address] [place] [address] Globulin (S) [Mass/Vol] 4.4 g/dL High 2.2-4.2 [facility] Comment on above: Performed By: #### L 550.46731, L200.45494 #### [facility] [place] [address] Glucose [Mass/Vol] 135 mg/dL High 70-100 [facility] Comment on above: Result Comment: 70-1 00- Normal Fasting; 100-125 Impaired Fasting; greater than 126 on more than one result- Diabetes. ADA guidelines. Results may be falsely elevated after the administration of Sulfapyridine. Results may be falsely depressed after the administration of Sulfasalazine. Performed By: #### L 550.94930, L200.66076 #### [facility] [address] [place] [address] Potassium [Moles/Vol] 3.6 mmol/L Normal 3.5-5.1 [facility] Comment on above: Result Comment: Slig ht Hemolysis, Result may be affected. Performed By: #### L 550.90243, L200.37631 #### [facility] [address] [place] [address] Protein [Mass/Vol] 8.3 g/dL Normal 6.0-8.5 [facility] Comment on above: Performed By: #### L 550.19326, L200.93145 #### [facility] [address] [place] [address] Sodium [Moles/Vol] 136 mmol/L Normal 136-145 [facility] Comment on above: Performed By: #### L 550.82203, L200.01167 #### [facility] [address] [place] [address] 6[address] Urea nitrogen [Mass/Vol] 10 mg/dL Normal 7-26 [facility] Comment on above: Performed By: #### L 550.80311, L200.75847 #### [facility] [address] [place] [address] Urea nitrogen/Creatinine [Mass ratio] 25 mg/mg High 15-24 [facility] Comment on above: Performed By: #### L 550.20894, L200.32050 #### [facility] [address] [place] [address] GFR ESTon 12-13-2020 IF AMER Greater than 60 Normal [facility] Comment on above: Performed By: #### L 550.17201, L200.44880 #### [facility] [address] [place] [address] IF non-AFR AMER Greater than 60 Normal [facility] Comment on above: Performed By: #### L 550.02300, L200.87554 #### [facility] [address] [place] [address] LIPIDon 12-13-2020 CHOL 143 MG/dL Normal 0-199 [facility] Comment on above: Performed By: #### L 550.11316, L200.19147 #### [facility] [address] [place] [address] Cholesterol in HDL [Mass/Vol] 35 mg/dL Low GREATER THAN 40 [facility] Comment on above: Result Comment: Shanice ents receiving Metamizole prior to venipuncture, may have falsely depressed results. Performed By: #### L 550.94073, L200.36671 #### [facility] [address] [place] [address] Cholesterol in LDL [Mass/Vol] 83 mg/dL Normal [facility] Comment on above: Result Comment: ___C HOLESTEROL/HDL RATIO RISK___ CHD RISK = Total CHOL LDL HDL (CHOL/HDL) Recommended <200 <130 >40 <3.4 Borderline 200-239 130-159 3.4-4.99 High >240 >160 >5.0 Performed By: #### L 550.17818, L200.82000 #### [facility] [place] [address] Triglyceride [Mass/Vol] 127 mg/dL Normal 30-149 [facility] Comment on above: Result Comment: Shanice ents receiving either N-Acetylcysteine (NAC) or Metamizole prior to venipuncture, may have falsely depressed results. Performed By: #### L 550.37927, L200.21260 #### [facility] [place] [address] TSHon 12-13-2020 TSH 1.437 UIU/ML Normal 0.358-3.740 [facility] Comment on above: Result Comment: 3rd generation ultra sensitive TSH Performed By: #### L 550.87632, L200.22015 #### [facility] [place] [address] Sunny 07-06-2020 Potassium [Moles/Vol] 3.6 mmol/L Normal 3.5-5.1 [facility] Comment on above: Result Comment: Slig ht Hemolysis, Result may be affected. Performed By: #### L 500.56531 #### [facility] [place] [address] CBC W/DIFFon 06-07-2020 BASO ABS 0.10 K/CU MM Normal 0-0.2 [facility] Comment on above: Performed By: #### L 200.91734 #### [facility] [address] [place] [address] Basophils/100 WBC (Bld) 1.0 % Normal 0-2 [facility] Comment on above: Performed By: #### L 200.37666 #### [facility] [address] [place] [address] EOS ABS 0.20 K/CU MM Normal 0-0.5 [facility] Comment on above: Performed By: #### L 200.11763 #### [facility] [address] [place] [address] Eosinophils/100 WBC (Bld) 3.7 % Normal 0-5 [facility] Comment on above: Performed By: #### L 200.20973 #### [facility] [address] [place] [address] Erythrocyte distribution width (RBC) [Ratio] 13.7 % Normal 11-14.5 [facility] Comment on above: Performed By: #### L 200.48831 #### [facility] [address] [place], [place] [id number] Hematocrit (Bld) [Volume fraction] 41.8 % Normal 35.0-47.0 [facility] Comment on above: Performed By: #### L 200.79380 #### [facility] [address] [place], [place] [address] Hemoglobin (Bld) [Mass/Vol] 13.2 g/dL Normal 11.5-15.5 [facility] Comment on above: Performed By: #### L 200.05835 #### [facility] [address] [place] [address] IMMATR GRAN ABS 0.00 K/CU MM Normal Less than 2 [facility] Comment on above: Performed By: #### L 200.13479 #### [facility] [address] [place] [address] IMMATURE GRAN % 0.3 % Normal Less than 2 [facility] Comment on above: Performed By: #### L 200.66634 #### [facility] [address] [place] [address] LYMPH ABS 2.60 K/CU MM Normal 0.9-4.4 [facility] Comment on above: Performed By: #### L 200.45830 #### [facility] [address] [place] [address] Lymphocytes/100 WBC (Bld) 43.8 % High 20-40 [facility] Comment on above: Performed By: #### L 200.76101 #### [facility] [address] [place] [address] MCHC (RBC) [Mass/Vol] 31.6 g/dL Low 32.0-36.0 [facility] Comment on above: Performed By: #### L 200.17034 #### [facility] [address] [place] [address] MCV (RBC) [Entitic vol] 95.7 fL Normal 80.0-99.0 [facility] Comment on above: Performed By: #### L 200.47127 #### [facility] [address] [place] [address] MONO ABS 0.60 K/CU MM Normal 0.1-1.1 [facility] Comment on above: Performed By: #### L 200.30947 #### [facility] [address] [place] [address] Monocytes/100 WBC (Bld) 9.4 % Normal 2-10 [facility] Comment on above: Performed By: #### L 200.79526 #### [facility] [address] [place] [address] NEUTROPHIL ABS 2.50 K/CU MM Normal 2.0-8.3 [facility] Comment on above: Performed By: #### L 200.15379 #### [facility] [address] [place] [address] Neutrophils/100 WBC (Bld) 41.8 % Low 45-75 [facility] Comment on above: Performed By: #### L 200.62373 #### [facility] [address] [place] [address] Nucleated RBC/100 WBC (Bld) [Ratio] 0.0 % Normal Less than 1 [facility] Comment on above: Performed By: #### L 200.18819 #### [facility] [address] [place] [address] Platelet mean volume (Bld) [Entitic vol] 10.4 fL Normal 9.4-12.4 [facility] Comment on above: Performed By: #### L 200.94150 #### [facility] [address] [place] [address] PLT 336 K/CU MM Normal 150-450 [facility] [facility] Comment on above: Performed By: #### L 200.54585 #### [facility] [address] [place] [address] RBC 4.37 M/CU MM Normal 3.90-5.30 [facility] Comment on above: Performed By: #### L 200.43308 #### [facility] [address] [place] [address] WBC 6.0 K/CUMM Normal 4.5-11.0 [facility] Comment on above: Performed By: #### L 200.39306 #### [facility] [address] [place] [address] CMPon 06-07-2020 Albumin [Mass/Vol] 3.9 g/dL Normal 3.2-5.0 [facility] Comment on above: Performed By: #### L 500.14738, L500.48508, L500.59803, L500.63078 #### [facility] [address] [place] [address] Albumin/Globulin [Mass ratio] 1.0 {ratio} Normal 0.8-2.0 [facility] Comment on above: Performed By: #### L 500.26474, L500.08382, L500.13635, L500.74627 #### [facility] [address] [place] [address] ALK PHOS 78 U/L Normal 45-117 [facility] Comment on above: Performed By: #### L 500.97179, L500.41038, L500.05169, L500.47376 #### [facility] [address] [place], [place] [id number] ALT [Catalytic activity/Vol] 80 U/L High 13-61 [facility] Comment on above: Result Comment: RESU LTS MAY BE FALSELY DEPRESSED AFTER THE ADMINISTRATION OF SULFASALAZINE AND/OR SULFAPYRIDINE. Performed By: #### L 500.95867, L500.60284, L500.73992, L500.78278 #### [facility] [address] [place], [place] [id number] Anion gap [Moles/Vol] 7 mmol/L Normal 5-16 [facility] Comment on above: Performed By: #### L 500.26699, L500.18460, L500.59080, L500.53433 #### [facility] [place] [address] AST [Catalytic activity/Vol] 86 U/L High 8-34 [facility] Comment on above: Result Comment: RESU LTS MAY BE FALSELY DEPRESSED AFTER THE ADMINISTRATION OF SULFASALAZINE AND/OR SULFAPYRIDINE. Performed By: #### L 500.10525, L500.12172, L500.71439, L500.80108 #### [facility] [address] [place] [address] BILI TOTAL 0.80 MG/DL Normal 0.2-1.0 [facility] Comment on above: Performed By: #### L 500.11401, L500.97378, L500.27788, L500.35082 #### [facility] [address] [place] [address] Calcium [Mass/Vol] 10.8 mg/dL High 8.5-10.5 [facility] Comment on above: Result Comment: NOTE NEW NORMAL RANGE DUE TO REAGENT CHANGE Performed By: #### L 500.17323, L500.24706, L500.67485, L500.16035 #### [facility] [address] [place] [address] Chloride [Moles/Vol] 99 mmol/L Normal 98-107 [facility] Comment on above: Performed By: #### L 500.27380, L500.14044, L500.15376, L500.29564 #### [facility] [address] [place] [address] CO2 [Moles/Vol] 33.0 mmol/L High 21-32 [facility] Comment on above: Performed By: #### L 500.60641, L500.91789, L500.47197, L500.95166 #### [facility] [place] [address] Creatinine [Mass/Vol] 0.53 mg/dL Normal 0.510-0.950 [facility] Comment on above: Result Comment: Shanice ents receiving either N-Acetylcysteine (NAC) or Metamizole prior to venipuncture, may have falsely depressed results. Performed By: #### L 500.35901, L500.16753, L500.16118, L500.20375 #### [facility] [address] [place] [address] Globulin (S) [Mass/Vol] 4.0 g/dL Normal 2.2-4.2 [facility] Comment on above: Performed By: #### L 500.57305, L500.14911, L500.51596, L500.38801 #### [facility] [address] [place] [address] Glucose [Mass/Vol] 118 mg/dL High 70-100 [facility] Comment on above: Result Comment: 70-1 00- Normal Fasting; 100-125 Impaired Fasting; greater than 126 on more than one result- Diabetes. ADA guidelines. Results may be falsely elevated after the administration of Sulfapyridine. Results may be falsely depressed after the administration of Sulfasalazine. Performed By: #### L 500.43573, L500.28619, L500.27214, L500.82484 #### [facility] [place] [address] Potassium [Moles/Vol] 3.4 mmol/L Low 3.5-5.1 [facility] Comment on above: Performed By: #### L 500.52509, L500.78742, L500.62548, L500.96362 #### [facility] [address] [place] [address] Protein [Mass/Vol] 7.9 g/dL Normal 6.0-8.5 [facility] Comment on above: Performed By: #### L 500.79505, L500.07676, L500.73633, L500.77418 #### [facility] [address] [place], [place] [id number] Sodium [Moles/Vol] 140 mmol/L Normal 136-145 [facility] Comment on above: Performed By: #### L 500.63760, L500.88237, L500.90300, L500.19847 #### [facility] [address] [place] [address] Urea nitrogen [Mass/Vol] 10 mg/dL Normal 7-26 [facility] Comment on above: Performed By: #### L 500.39923, L500.62237, L500.47343, L500.02254 #### [facility] [address] [place] [address] Urea nitrogen/Creatinine [Mass ratio] 19 mg/mg Normal 15-24 [facility] Comment on above: Performed By: #### L 500.93411, L500.88291, L500.57397, L500.41438 #### [facility] [address] [place] [address] GFR ESTon 06-07-2020 IF AMER Greater than 60 Normal [facility] Comment on above: Performed By: #### L 500.79939, L500.95003, L500.89960, L500.31738 #### [facility] [address] [place] [address] IF non-AFR AMER Greater than 60 Normal [facility] Comment on above: Performed By: #### L 500.39252, L500.12271, L500.52274, L500.60049 #### [facility] [address] [place] [address] LIPIDon 06-07-2020 CHOL 140 MG/dL Normal 0-199 [facility] Comment on above: Performed By: #### L 500.34449, L500.64569, L500.62388, L500.46945 #### [facility] [address] [place] [address] Cholesterol in HDL [Mass/Vol] 35 mg/dL Low GREATER THAN 40 [facility] Comment on above: Result Comment: Shanice ents receiving Metamizole prior to venipuncture, may have falsely depressed results. Performed By: #### L 500.92699, L500.25584, L500.50627, L500.37244 #### [facility] [address] [place] [address] Cholesterol in LDL [Mass/Vol] 86 mg/dL Normal [facility] Comment on above: Result Comment: ___C HOLESTEROL/HDL RATIO RISK___ CHD RISK = Total CHOL LDL HDL (CHOL/HDL) Recommended <200 <130 >40 <3.4 Borderline 200-239 130-159 3.4-4.99 High >240 >160 >5.0 Performed By: #### L 500.20361, L500.26040, L500.03496, L500.85264 #### [facility] [address] [place] [address] Triglyceride [Mass/Vol] 94 mg/dL Normal 30-149 [facility] Comment on above: Result Comment: Shanice ents receiving either N-Acetylcysteine (NAC) or Metamizole prior to venipuncture, may have falsely depressed results. Performed By: #### L 500.74011, L500.90994, L500.89945, L500.21009 #### [facility] [place] [address] TSHon 06-07-2020 TSH 0.806 UIU/ML Normal 0.358-3.740 [facility] Comment on above: Result Comment: 3rd generation ultra sensitive TSH Performed By: #### L 500.37427, L500.32391, L500.41887, L500.18669 #### [facility] [address] [place] [address] Vital Signs Date Time Vital Sign Value Performing Clinician Abisai rose 11-03-2024 07:35-0400 Body height 149.[address] Ion Williamson DO Work Phone: [facility] 11-03-2024 07:35-0400 Body weight 82.[address] Ion Williamson DO Work Phone: [facility] 09-24-2024 07:30-0400 Body weight 82.82 kg SAUL ARMIJO Work Phone: [facility] 09-22-2024 07:44-0400 Body height 149.9 cm Saul Armijo [employer]MENT MECH[employer]IC - [facility] Work Phone: [facility] 09-22-2024 07:44-0400 Body mass index (BMI) [Ratio] 37.08 kg/m2 Saul Armijo [employer] EQUIPMENT MECHANIC - [employer] Work Phone: [facility] 09-22-2024 07:44-0400 Body weight 83.28 kg Saul Armijo [employer] EQU[employer]MENT MECHANIC - [employer] Work Phone: [facility] 09-22-2024 07:44-0400 Diastolic blood pressure 80 mm[Hg] Saul Armijo [employer] EQU[employer]MENT MECHANIC - [employer] Work Phone: [facility] 09-22-2024 07:44-0400 Heart rate 87 /min Saul Armijo [employer] EQU[employer]MENT MECHANIC - [employer] Work Phone: [facility] 09-22-2024 07:44-0400 Systolic blood pressure 128 mm[Hg] Saul Armijo [employer] EQU[employer]MENT MECHANIC - [employer] Work Phone: [facility] 07-23-2024 07:30-0400 Body height 149.[address] Ion Williamson DO Work Phone: [facility] 07-23-2024 07:30-0400 Body weight 82.[address] Ion Williamson DO Work Phone: [facility] 06-18-2024 11:24-0400 Body height 149.9 cm Saul Armijo [employer] EQUIPMENT MECHANIC - [employer] Work Phone: [facility] 06-18-2024 11:24-0400 Body mass index (BMI) [Ratio] 37.06 kg/m2 Saul Armijo [employer] EQUIPMENT MECHANIC - [employer] Work Phone: [facility] 06-18-2024 11:24-0400 Body weight 83.23 kg Saul Armijo [employer] EQUIPMENT MECHANIC - [employer] Work Phone: [facility] 06-18-2024 11:24-0400 Diastolic blood pressure 69 mm[Hg] Saul Armijo [employer] W[employer] EQUIPMENT MECHANIC - [employer]PER[employer]ENT [employer] Work Phone: [facility] [employer] 06-18-2024 11:24-0400 Heart rate 83 /min Saul Armijo [employer] EQUIPMENT MECHANIC - [employer]ENT [employer] Work Phone: [facility] 06-18-2024 11:24-0400 Systolic blood pressure 111 mm[Hg] Saul Armijo [employer] EQUIPMENT MECHANIC - [employer] Work Phone: [facility] 06-04-2024 07:30-0400 Body height 149.[address] Ion Williamson DO Work Phone: [facility] 06-04-2024 07:30-0400 Body weight 83.[address] Ion Williamson DO Work Phone: [facility] 04-14-2024 07:30-0500 Body weight 82.[address] Ion Williamson DO Work Phone: [facility] 03-18-2024 10:13-0500 Body height 149.9 cm Saul Armijo [employer] EQUIPMENT MECHANIC - [employer] Work Phone: [facility] 03-18-2024 10:13-0500 Body mass index (BMI) [Ratio] 37.02 kg/m2 Saul Armijo [employer] EQU[employer]MENT MECHANIC - [employer]PER[employer]ENT [employer] Work Phone: [facility] [employer] 03-18-2024 10:13-0500 Body weight 83.14 kg Saul Armijo [employer] EQUIPMENT MECHANIC - [employer]PER[employer]ENT [employer] Work Phone: [facility] [employer] 03-18-2024 10:13-0500 Diastolic blood pressure 72 mm[Hg] Saul Armijo [employer] 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 MECHANIC - [employer]ENT [employer] Work Phone: [employer] 01-14-2024 09:58-0500 Diastolic blood pressure 66 mm[Hg] Saul Armijo [employer] EQUIPMENT MECHANIC - [employer]PER[employer]ENT [employer]IVE Work Phone: [employer] 01-14-2024 09:58-0500 Heart rate 87 /min Saul Armijo [employer] EQUIPMENT MECHANIC - [employer]PER[employer]ENT [employer]IVE Work Phone: [employer] 01-14-2024 09:58-0500 Systolic blood pressure 132 mm[Hg] Saul Armijo [employer] EQUIPMENT MECHANIC - [employer]ENT [employer] Work Phone: [employer] 12-16-2023 08:07-0400 Diastolic blood pressure 78 mm[Hg] Marisol Emery [employer] W[employer] EQUIPMENT MECHANIC - [employer]PER[employer]ENT [employer] Work Phone: [employer] 12-16-2023 08:07-0400 Heart rate 91 /min Marisol Emery [employer] EQUIPMENT MECHANIC - [employer]ENT [employer] Work Phone: [employer] 12-16-2023 08:07-0400 Systolic blood pressure 137 mm[Hg] Marisolra Emery [employer] EQUIPMENT MECHANIC - [employer]PER[employer]ENT [employer]IVE Work Phone: [employer] 11-29-2023 05:45-0400 Body temperature 97.3 [degF] Robert Bruce MD Work Phone: [employer] 11-29-2023 05:45-0400 Diastolic blood pressure 59 mm[Hg] Robert Bruce MD Work Phone: [employer] 11-29-2023 05:45-0400 Heart rate 83 /min Robert Bruce MD Work Phone: [employer] 11-29-2023 05:45-0400 Respiratory rate 16 /min Robert Bruce MD Work Phone: [facility] 11-29-2023 05:45-0400 SaO2% (BldA) [Mass fraction] 97 % Robert Bruce MD Work Phone: [facility] 11-29-2023 05:45-0400 Systolic blood pressure 128 mm[Hg] Robert Bruce MD Work Phone: [facility] 2023 07:59-0400 Body height 149.9 cm Robert Bruce MD Work Phone: [facility] 2023 07:59-0400 Body mass index (BMI) [Ratio] 40.8 kg/m2 Robert Bruce MD Work Phone: [facility] 2023 07:59-0400 Body weight 91.63 kg Robert Bruce MD Work Phone: [facility] 2023 07:59-0400 Diastolic blood pressure 76 mm[Hg] Robert Bruce MD Work Phone: [facility] 2023 07:59-0400 Heart rate 101 /min Robert Bruce MD Work Phone: [facility] 2023 07:59-0400 Systolic blood pressure 119 mm[Hg] Robert Bruce MD Work Phone: [facility] 07-02-2023 07:30-0400 Body height 149.[address] Ion Williamson Work Phone: [facility] 07-02-2023 07:30-0400 Body weight 88.[address] Ion Williamson Work Phone: [facility] 06-25-2023 08:08-0400 Body height 149.[address] Ion Williamson Work Phone: [facility] 06-25-2023 08:08-0400 Body mass index (BMI) [Ratio] 38.7 kg/m2 Dr. Ion Williamson Work Phone: [facility] 06-25-2023 08:08-0400 Body weight 87.[address] Ion Williamson Work Phone: [facility] 06-25-2023 08:08-0400 Diastolic blood pressure 74 mm[Hg] Dr. Ion Williamson Work Phone: [facility] 06-25-2023 08:08-0400 Systolic blood pressure 136 mm[Hg] Dr. Ion Williamson Work Phone: [facility] 05-21-2023 07:30-0400 Body height 149.86 cm [facility] 05-21-2023 07:30-0400 Body weight 86.9 kg [facility] 04-03-2023 07:30-0500 Body height 149.86 cm [facility] 04-03-2023 07:30-0500 Body weight 87.95 kg [facility] 02-27-2023 08:30-0500 Body weight 87.45 kg [facility] 02-05-2023 07:30-0500 Body height 149.86 cm [facility] 02-05-2023 07:30-0500 Body weight 87.63 kg [facility] 01-04-2023 09:25-0400 Body height 149.9 cm Jazmin Zazueta MD Work Phone: [facility] 01-04-2023 09:25-0400 Body weight 86.27 kg Jazmin Zazueta MD Work Phone: [facility] 01-04-2023 09:25-0400 Diastolic blood pressure 83 mm[Hg] Jazmin Zazueta MD Work Phone: [facility] 01-04-2023 09:25-0400 Heart rate 77 /min Jazmin Zazueta MD Work Phone: [facility] 01-04-2023 09:25-0400 Systolic blood pressure 135 mm[Hg] Jazmin Zazueta MD Work Phone: [facility] 01-01-2023 07:30-0400 Body height 149.86 cm [facility] 01-01-2023 07:30-0400 Body weight 86.36 kg [facility] 11-09-2022 09:31-0400 Body height 149.9 cm Jazmin Zazueta MD Work Phone: [facility] 11-09-2022 09:31-0400 Body weight 87.09 kg Jazmin Zazueta MD Work Phone: [facility] 11-09-2022 09:31-0400 Diastolic blood pressure 80 mm[Hg] Jazmin Zazueta MD Work Phone: [facility] 11-09-2022 09:31-0400 Heart rate 76 /min Jazmin Zazueta MD Work Phone: [facility] 11-09-2022 09:31-0400 Systolic blood pressure 124 mm[Hg] Jazmin Zazueta MD Work Phone: [facility] 10-16-2022 08:20-0400 Body height 149.86 cm [facility] 10-16-2022 08:20-0400 Body weight 87.72 kg [facility] 08-14-2022 08:15-0400 Body height 149.86 cm [facility] 08-14-2022 08:15-0400 Body weight 86.9 kg [facility] 05-31-2022 10:44-0400 Body height 149.[address] Ion Williamson Work Phone: [facility] 05-31-2022 10:44-0400 Body weight 87.[address] Ion Williamson Work Phone: [facility] 05-03-2022 09:19-0500 Body height 149.[address] Ion Williamson Work Phone: [facility] 05-03-2022 09:19-0500 Body weight 88.[address] Ion Williamson Work Phone: [facility] 03-20-2022 10:34-0500 Body height 149.[address] Ion Williamson Work Phone: [facility] 03-20-2022 10:34-0500 Body weight 89.[address] Ion Williamson Work Phone: [facility] 03-10-2022 15:39-0500 Body height 149.[address] Ion Williamson Work Phone: [facility] Work Phone: 03-10-2022 15:39-0500 Body mass index (BMI) [Ratio] 38.1 kg/m2 Dr. Ion Williamson Work Phone: [facility] 03-10-2022 15:39-0500 Body temperature 97 [degF] Dr. Ion Williamson Work Phone: [facility] 03-10-2022 15:39-0500 Body weight 85.[address] Ion Williamson Work Phone: [facility] 03-10-2022 15:39-0500 Diastolic blood pressure 84 mm[Hg] Dr. Ion Williamson Work Phone: [facility] 03-10-2022 15:39-0500 Heart rate 106 /min Dr. Ion Williamson Work Phone: [facility] 03-10-2022 15:39-0500 Respiratory rate 18 /min Dr. Ion Williamson Work Phone: [facility] 03-10-2022 15:39-0500 SaO2% (BldA) [Mass fraction] 96 % Dr. Ion Williamson Work Phone: [facility] 03-10-2022 15:39-0500 Systolic blood pressure 142 mm[Hg] Dr. Ion Williamson Work Phone: [facility] 03-06-2022 06:18-0500 Body temperature 98.6 [degF] Dr. Ion Williamson Work Phone: [facility] 03-06-2022 06:18-0500 Diastolic blood pressure 90 mm[Hg] Dr. Ion Williamson Work Phone: [facility] 03-06-2022 06:18-0500 Heart rate 94 /min Dr. Ion Williamson Work Phone: [facility] 03-06-2022 06:18-0500 Respiratory rate 17 /min Dr. Ion Williamson Work Phone: [facility] 03-06-2022 06:18-0500 SaO2% (BldA) [Mass fraction] 96 % Dr. Ion Williamson Work Phone: [facility] 03-06-2022 06:18-0500 Systolic blood pressure 168 mm[Hg] Dr. Ion Williamson Work Phone: [facility] 02-05-2022 13:01-0500 Body temperature 98.2 [degF] Dr. Ion Williamson Work Phone: [facility] 02-05-2022 13:01-0500 Diastolic blood pressure 74 mm[Hg] Dr. Ion Williamson Work Phone: [facility] 02-05-2022 13:01-0500 Heart rate 83 /min Dr. Ion Williamson Work Phone: [facility] 02-05-2022 13:01-0500 Respiratory rate 14 /min Dr. Ion Williamson Work Phone: [facility] 02-05-2022 13:01-0500 SaO2% (BldA) [Mass fraction] 95 % Dr. Ion Williamson Work Phone: [facility] 02-05-2022 13:01-0500 Systolic blood pressure 132 mm[Hg] Dr. Ion Williamson Work Phone: [facility] 11-14-2021 11:12-0400 Body height 149.86 cm [facility] Work Phone: 11-14-2021 11:12-0400 Body weight 87.72 kg [facility] Work Phone: 10-19-2021 12:54-0400 Body temperature 97.3 [degF] Megan Regula DO Work Phone: [facility] 10-19-2021 12:54-0400 Diastolic blood pressure 78 mm[Hg] Megan Regula DO Work Phone: [facility] 10-19-2021 12:54-0400 Heart rate 91 /min Megan Regula DO Work Phone: [facility] 10-19-2021 12:54-0400 Respiratory rate 16 /min Megan Regula DO Work Phone: [facility] 10-19-2021 12:54-0400 SaO2% (BldA) [Mass fraction] 96 % Megan Regula DO Work Phone: [facility] 10-19-2021 12:54-0400 Systolic blood pressure 148 mm[Hg] Megan Regula DO Work Phone: [facility] 2021 10:13-0400 Body height 149.9 cm Jazmin Zazueta MD Work Phone: [facility] 2021 10:13-0400 Body weight 81.19 kg Jazmin Zazueta MD Work Phone: [facility] 2021 10:13-0400 Diastolic blood pressure 54 mm[Hg] Jazmin Zazueta MD Work Phone: [facility] 2021 10:13-0400 Heart rate 81 /min Jazmin Zazueta MD Work Phone: [facility] 2021 10:13-0400 Systolic blood pressure 134 mm[Hg] Jazmin Zazueta MD Work Phone: [facility] 09-12-2021 10:35-0400 Body temperature 96.8 [degF] Megan Regula DO Work Phone: [facility] 09-12-2021 10:35-0400 Diastolic blood pressure 83 mm[Hg] Megan Regula DO Work Phone: [facility] 09-12-2021 10:35-0400 Heart rate 88 /min Megan Regula DO Work Phone: [facility] 09-12-2021 10:35-0400 Systolic blood pressure 125 mm[Hg] Megan Regula DO Work Phone: [facility] 07-05-2021 10:31-0400 Body weight [address] Ion Williamson Work Phone: [facility] Work Phone: 06-15-2021 20:40-0400 Respiratory rate 18 /min Dr. Ion Williamson Work Phone: [facility] Work Phone: 06-15-2021 18:33-0400 Body height 149.[address] Ion Williamson Work Phone: [facility] Work Phone: 06-15-2021 18:33-0400 Body mass index (BMI) [Ratio] 38.3 kg/m2 Dr. Ion Williamson Work Phone: [facility] Work Phone: 06-15-2021 18:33-0400 Body temperature 95.6 [degF] Dr. Ion Williamson Work Phone: [facility] Work Phone: 06-15-2021 18:33-0400 Body weight 86.[address] Ion Williamson Work Phone: [facility] Work Phone: 06-15-2021 18:33-0400 Diastolic blood pressure 59 mm[Hg] Dr. Ion Williamson Work Phone: [facility] Work Phone: 06-15-2021 18:33-0400 Heart rate 84 /min Dr. Ion Williamson Work Phone: [facility] Work Phone: 06-15-2021 18:33-0400 SaO2% (BldA) [Mass fraction] 98 % Dr. Ion Williamson Work Phone: [facility] Work Phone: 06-15-2021 18:33-0400 Systolic blood pressure 127 mm[Hg] Dr. Ion Williamson Work Phone: [facility] Work Phone: 06-12-2021 10:24-0400 Body weight 86.[address] Ion Williamson Work Phone: [facility] Work Phone: 05-24-2021 09:55-0400 Body weight 85.[address] Ion Williamson Work Phone: [facility] Work Phone: 05-09-2021 08:16-0500 Body height 149.[address] Ion Williamson Work Phone: [facility] Work Phone: 04-19-2021 08:42-0500 Body weight 87.[address] Ion Williamson Work Phone: [facility] Work Phone: 04-16-2021 08:24-0500 Body mass index (BMI) [Ratio] 38.7 kg/m2 Dr. Ion Williamson Work Phone: [facility] Work Phone: 04-16-2021 08:24-0500 Body temperature 97.5 [degF] Dr. Ion Williamson Work Phone: [facility] Work Phone: 04-16-2021 08:24-0500 Body weight 87.[address] Ion Williamson Work Phone: [facility] Work Phone: 04-16-2021 08:24-0500 Diastolic blood pressure 75 mm[Hg] Dr. Ion Williamson Work Phone: [facility] Work Phone: 04-16-2021 08:24-0500 Heart rate 94 /min Dr. Ion Williamson Work Phone: [facility] Work Phone: 04-16-2021 08:24-0500 Respiratory rate 18 /min Dr. Ion Williamson Work Phone: [facility] Work Phone: 04-16-2021 08:24-0500 SaO2% (BldA) [Mass fraction] 95 % Dr. Ion Williamson Work Phone: [facility] Work Phone: 04-16-2021 08:24-0500 Systolic blood pressure 127 mm[Hg] Dr. Ion Williamson Work Phone: [facility] Work Phone: 03-15-2021 17:02-0500 Body weight 89.[address] Ion Williamson Work Phone: [facility] Work Phone: 02-07-2021 23:39-0500 Body weight 85.[address] Ion Williamson Work Phone: [facility] Work Phone: 02-07-2021 11:00-0500 Body height 149.9 cm Jazmin Zazueta MD Work Phone: [facility] 02-07-2021 11:00-0500 Body weight 81.19 kg Jazmin Zazueta MD Work Phone: [facility] 02-07-2021 11:00-0500 Diastolic blood pressure 84 mm[Hg] Jazmin Zazueta MD Work Phone: [facility] 02-07-2021 11:00-0500 Heart rate 90 /min Jazmin Zazueta MD Work Phone: [facility] 02-07-2021 11:00-0500 Systolic blood pressure 140 mm[Hg] Jazmin Zazueta MD Work Phone: [facility] Encounters Encounter Date Encounter Type Care Provider Facility Start: 01-05-2025 ambulatory Ion Hanley ty:[facility] Start: 11-03-2024 End: 11-08-[address] Yenni Williamson DO -Nutritional Services Work Phone: Start: 11-03-2024 End: 11-08-[address] Ion Williamson DO Work Phone: -Nutritional Services Start: 09-24-2024 End: 10-08-[address] Yenni Williamson DO -Nutritional Services Work Phone: Start: 09-24-2024 End: 10-08-2024 ambulatory SAUL ARMIJO Work Phone: -Nutritional Services Start: 09-22-2024 End: 09-22-2024 Office outpatient visit 25 minutes Saul Armijo [employer] W[employer] EQUIPMENT MECHANIC - SUPERINTENDENT AUTOMOTIVE Work Phone: [facility] Comment on above: Type 2 diabetes shelley itus with hyperglycemia, with long-term current use of insulin (HCC) (Primary Dx); Hypertension associated with type 2 diabetes mellitus (HCC); Class 2 severe obesity with serious comorbidity and body mass index (BMI) of 37.0 to 37.9 in adult, unspecified obesity type (HCC) Start: 09-22-2024 End: 09-22-2024 ambulatory SAUL ARMIJO [facility] Start: 09-14-2024 End: 09-14-2024 Refill Saul Armijo [employer] W[employer] EQUIPMENT MECHANIC - SUPERINTENDENT AUTOMOTIVE Work Phone: [facility] Comment on above: Type 2 diabetes shelley itus with hyperglycemia, with long-term current use of insulin (HCC) Start: 09-10-2024 End: 09-10-2024 Refill Saul Armijo [employer] W[employer] EQUIPMENT MECHANIC - SUPERINTENDENT AUTOMOTIVE Work Phone: [facility] Comment on above: Type 2 diabetes shelley itus with hyperglycemia, with long-term current use of insulin (HCC) Start: 07-23-2024 End: 08-08-[address] Yenni Williamson DO -Nutritional Services Work Phone: Start: 07-23-2024 End: 08-08-[address] Ion Williamson DO Work Phone: [facility] Work Phone: Start: 06-18-2024 End: 06-26-2024 Telephone encounter Ion Williamson DO Work Phone: [facility] Internal Medicine [facility] Comment on above: Appointment Start: 06-18-2024 End: 06-18-2024 Office outpatient visit 25 minutes Saul Armijo [employer] EQUIPMENT MECHANIC - SUPERINTENDENT AUTOMOTIVE Work Phone: [facility] Comment on above: Type 2 diabetes shelley itus with hyperglycemia, with long-term current use of insulin (HCC) (Primary Dx); Hypertension associated with type 2 diabetes mellitus (HCC); Class 2 severe obesity with serious comorbidity and body mass index (BMI) of 37.0 to 37.9 in adult, unspecified obesity type (HCC) Start: 06-18-2024 End: 06-18-2024 ambulatory SAUL ARMIJO [facility] Start: 06-11-2024 End: 06-11-[address] Ion Williamson DO Work Phone: [facility] Work Phone: Start: 06-11-2024 End: 06-11-[address] Ion Williamson DO Work Phone: -Laboratory, Specimen Work Phone: Start: 06-10-2024 End: 06-11-[address] Ion Williamson DO Work Phone: [facility] Work Phone: Start: 06-10-2024 End: 06-10-[address] Ion Williamson DO Work Phone: -Laboratory Work Phone: Start: 06-10-2024 End: 06-10-2024 ambulatory JOLENE ALLEN Facility:[facility] Start: 06-09-2024 End: 07-15-2024 Telephone encounter Saul Armijo [employer] W[employer] EQUIPMENT MECHANIC - SUPERINTENDENT AUTOMOTIVE Work Phone: [facility] Comment on above: Other (Questions & C larifications) Start: 06-04-2024 End: 06-08-[address] Yenni Williamson DO -Nutritional Services Work Phone: Start: 06-04-2024 End: 06-08-[address] Ion Williamson DO Work Phone: [facility] Work Phone: Start: 04-21-2024 End: 07-01-2024 Telephone encounter Saul Armijo [employer] EQUIPMENT MECHANIC - SUPERINTENDENT AUTOMOTIVE Work Phone: [facility] Comment on above: Diabetes (Dexcom marissa dings ) Start: 04-14-2024 End: 05-08-[address] Yenni Williamson DO -Nutritional Services Work Phone: Start: 04-14-2024 End: 05-08-2024 ambulatory Ion [facility] Facility:[facility] Start: 03-18-2024 End: 03-18-2024 Office outpatient visit 25 minutes Saul Armijo [employer] W[employer] EQUIPMENT MECHANIC - SUPERINTENDENT AUTOMOTIVE Work Phone: [facility] Comment on above: Type 2 diabetes shelley itus with hyperglycemia, with long-term current use of insulin (HCC) (Primary Dx); Essential (primary) hypertension; Class 2 severe obesity with serious comorbidity and body mass index (BMI) of 37.0 to 37.9 in adult, unspecified obesity type (HCC) Start: 03-18-2024 End: 03-18-2024 ambulatory [facility] Start: 03-09-2024 End: 03-10-2024 ambulatory [facility] Facility:[facility] Start: 03-09-2024 End: 03-10-[address] Yenni Williamson DO -Nutritional Services Work Phone: Start: 03-09-2024 End: 03-09-[address] Yenni Williamson DO -Laboratory Work Phone: Start: 03-09-2024 End: 03-09-2024 ambulatory [facility] Facility:[facility] Start: 02-27-2024 End: 02-27-2024 Telephone encounter Saul Armijo [employer] W[employer] EQUIPMENT MECHANIC - SUPERINTENDENT AUTOMOTIVE Work Phone: [facility] Comment on above: Medication Problem Start: 02-20-2024 End: 02-21-2024 Telephone encounter Saul Armijo [employer] W[employer] EQUIPMENT MECHANIC - SUPERINTENDENT AUTOMOTIVE Work Phone: [facility] Comment on above: Other (Blood Glucose Log) Start: 02-03-2024 End: 02-03-2024 ambulatory [facility] Facility:[facility] Start: 01-31-2024 End: 01-31-2024 Telephone encounter Saul Armijo [employer] W[employer] EQUIPMENT MECHANIC - SUPERINTENDENT AUTOMOTIVE Work Phone: [facility] Comment on above: Other Start: 01-30-2024 End: 01-30-2024 Telephone encounter Saul Armijo [employer] W[employer] EQUIPMENT MECHANIC - SUPERINTENDENT AUTOMOTIVE Work Phone: [facility] Comment on above: Advice Only Start: 01-14-2024 End: 01-14-2024 Office outpatient visit 40 minutes Saul Armijo [employer] W[employer] EQUIPMENT MECHANIC - SUPERINTENDENT AUTOMOTIVE Work Phone: [facility] Comment on above: Type 2 diabetes shelley itus with hyperglycemia, with long-term current use of insulin (HCC) (Primary Dx); Essential (primary) hypertension; Obesity (BMI 30-39.9) Start: 01-14-2024 End: 01-14-2024 ambulatory SAUL ARMIJO [facility] Start: 01-14-2024 End: 01-14-2024 ambulatory ION WILLIAMSON [facility] Start: 01-02-2024 End: 01-03-2024 Telephone encounter Chung Miner MD Work Phone: [facility] Clinical Communication Comment on above: Other (Readings) Start: 01-02-2024 End: 01-09-2024 ambulatory [facility] Facility:[facility] Start: 12-17-2023 End: 12-17-2023 Telephone encounter Marisol Mcdowelldez E[employer] W[employer] EQUIPMENT MECHANIC - SUPERINTENDENT AUTOMOTIVE Work Phone: [facility] Start: 12-16-2023 End: 12-16-2023 Postop follow up visit related to original px Marisol Emery [employer] W[employer] EQUIPMENT MECHANIC - SUPERINTENDENT AUTOMOTIVE Work Phone: [facility] Comment on above: Postoperative state (Primary Dx) Start: 12-16-2023 End: 12-16-2023 [facility] Start: 12-05-2023 End: 12-06-2023 Telephone encounter Robert Bruce MD Work Phone: [facility] Comment on above: Other (Bleeding ques tion ) Start: 12-03-2023 End: 01-17-2024 ambulatory Lissette Cassidy RN [facility] Clinical Communication Start: 12-03-2023 End: 01-17-2024 Patient encounter procedure Lissette Cassidy RN [facility] Clinical Communication Start: 12-02-2023 End: 12-02-2023 Telephone encounter Robert Bruce MD Work Phone: [facility] Start: 11-26-2023 End: 11-29-2023 Evaluation and management of inpatient Robert Bruce MD Work Phone: [facility] Medical Surgical Unit [facility] Comment on above: Intra-abdominal and pelvic swelling, mass and lump, unspecified site (Primary Dx); Acute postoperative pain Start: 11-19-2023 End: 11-19-2023 [facility] Start: 11-19-2023 End: 11-19-2023 Encounter for other preprocedural examination ROBERT BRUCE [facility] Start: 11-14-2023 End: 12-09-2023 ambulatory Ion Williamson Facility:[facility] Start: 10-21-2023 End: 10-21-2023 Telephone encounter Robert Bruce MD Work Phone: [facility] Start: 2023 End: 2023 Telephone encounter Robert Bruce MD Work Phone: [facility] Comment on above: Other (Surgery sched [facility]) Start: 2023 End: 2023 Office outpatient new 30 minutes Robert Bruce MD Work Phone: [facility] Comment on above: Pelvic mass in femal e (Primary Dx); Abnormal uterine bleeding (AUB); Pelvic pain in female Start: 2023 End: 2023 ambulatory Robert Bruce MD Work Phone: [facility] Start: 10-16-2023 End: 11-27-2023 Telephone encounter Robert Bruce MD Work Phone: [facility] Gynecologic Oncology [facility] Comment on above: Appointment Start: 07-02-2023 End: 07-09-[address] Ion Williamson Work Phone: [facility] Work Phone: Start: 07-02-2023 End: 07-09-[address] Ion Williamson Work Phone: [facility]-Diabetic Clinic Work Phone: Start: 06-25-2023 End: 06-25-[address] Ion Williamson Work Phone: [facility] Work Phone: Start: 06-25-2023 End: 06-25-[address] Ion Williamson Work Phone: [facility]-Laboratory, Specimen Work Phone: Start: 06-25-2023 End: 06-25-[address] Ion Williamson Work Phone: [facility] Work Phone: Start: 06-21-2023 Telephone encounter Vicky contreras APRN.CNP Work Phone: [facility] Start: 06-14-2023 ambulatory ION WILLIAMSON Fackevin lity:[facility] Start: 06-14-2023 End: 06-14-2023 Subsequent hospital visit by physician Stereo/Ultrasound Biopsy [facility] Comment on above: Arrived Start: 05-21-2023 End: 06-09-2023 ambulatory [facility] Work Phone: Start: 05-21-2023 End: 06-09-2023 Discharged Recurring [facility]-Diabetic Clinic Work Phone: Start: 05-06-2023 End: 05-06-2023 ambulatory [facility] Work Phone: Start: 05-06-2023 End: 05-06-2023 Patient encounter procedure [facility]-Outpatient Breast Imaging Work Phone: Start: 04-03-2023 End: 04-10-2023 [facility]charged [facility] Start: 02-27-2023 End: 03-10-2023 Discharged Rec[facility]ring [facility]: Start: 02-05-2023 End: 02-07-2023 ambulatory [facility] Work Phone: Start: 02-05-2023 End: 02-07-2023 Discharged Recurring [facility]Di[facility] Work Phone: Start: 02-04-2023 Telephone encounter Jazmin dia MD Work Phone: [facility] Comment on above: Results Start: 01-25-2023 ambulatory ION Barone lity:[facility] Start: 01-25-2023 End: 01-25-2023 Patient encounter procedure [facility]-Laboratory Work Phone: Start: 01-04-2023 End: 01-04-2023 ambulatory ION WILLIAMSON Facility[facility] Start: 01-04-2023 End: 01-04-2023 Patient encounter procedure Jazmin Zazueta MD Work Phone: [facility] Comment on above: Unspecified lump in axillary tail of the left breast (Primary Dx); Dense breast tissue; Breast calcification, right; At high risk for breast cancer Start: 01-01-2023 End: 01-08-2023 ambulatory [facility] Work Phone: Start: 01-01-2023 End: 01-08-2023 Discharged Recurring [facility]-Diabetic Clinic Work Phone: Start: 11-09-2022 End: 11-09-2022 ambulatory ION WILLIAMSON [facility] Start: 11-09-2022 End: 11-09-2022 Patient encounter procedure Jazmin Zazueta MD Work Phone: [facility] Comment on above: Breast calcification , right (Primary Dx); Dense breast tissue; At high risk for breast cancer Start: 11-02-2022 ambulatory ION WILLIAMSON Fac lity:[facility] Start: 10-16-2022 End: 11-08-2022 ambulatory [facility] Work Phone: Start: 10-16-2022 End: 11-08-2022 Discharged Recurring [facility]-Diabetic Clinic Work Phone: Start: 08-14-2022 End: 09-07-2022 ambulatory [facility] Work Phone: Start: 08-14-2022 End: 09-07-2022 Discharged Recurring [facility]Di[facility] Work Phone: Start: 07-16-2022 End: 07-16-2022 ambulatory [facility] Work Phone: Start: 07-16-2022 End: 07-16-2022 Patient encounter procedure [facility]-Laboratory Start: 05-31-2022 End: 06-08-[address] Ion Williamson Work Phone: [facility] Work Phone: Start: 05-31-2022 End: 06-08-[address] Ion Williamson [facility] Start: 05-07-2022 End: 05-07-[address] Ion Williamson Work Phone: [facility] Work Phone: Start: 05-07-2022 End: 05-07-[address] Ion Williamson Work Phone: [facility]-Laboratory Start: 05-03-2022 End: 05-08-[address] Ion Williamson Work Phone: [facility] Work Phone: Start: 05-03-2022 End: 05-08-[address] Ion Williamson [facility] Start: 04-27-2022 Documentation procedure Mammog sreedhar Coordinator [facility] Start: 04-27-2022 Letter encounter Mammography Coordinator [facility] NOT LISTED Start: 04-27-2022 End: 04-27-2022 Subsequent hospital visit by physician Diagnostic Mammo [facility] 1 [facility] Comment on above: Abnormal mammogram [ R92.8] Start: 03-20-2022 End: 04-10-[address] Ion Williamson Work Phone: [facility] Work Phone: Start: 03-20-2022 End: 04-10-[address] Ion Williamson [facility] Start: 03-10-2022 End: 03-10-2022 Emergency department patient visit Dr. Ion Williamson Work Phone: [facility]-Emergency Department Start: 03-06-2022 End: 03-06-[address] Ion Williamson [facility] Start: 02-05-2022 End: 02-05-[address] Ion Williamson [facility] Start: 01-30-2022 End: 01-30-[address] Ion Williamson Work Phone: [facility] Work Phone: Start: 01-30-2022 End: 01-30-[address] Ion Williamson Work Phone: [facility]-Laboratory Start: 11-14-2021 End: 12-08-2021 ambulatory [facility] Work Phone: Start: 11-14-2021 End: 12-08-2021 [facility]charged [facility]ring [facility] Start: 10-19-2021 End: 10-19-2021 Office outpatient visit 15 minutes Megan Conklin DO Work Phone: [facility] Comment on above: Type 2 diabetes shelley itus with other specified complication, without long-term current use of insulin (HCC) (Primary Dx); Hypokalemia; Essential hypertension Start: 2021 Chart abstracting Megan fay DO Work Phone: [facility] Start: 2021 End: 2021 Patient encounter procedure Jazmin Zazueta MD Work Phone: [facility] Comment on above: Abnormal mammogram ( Primary Dx); Family history of malignant neoplasm of breast; At high risk for breast cancer Start: 10-16-2021 Patient encounter procedure [facility]-Laboratory Start: 09-14-2021 Telephone encounter Mili mirza [facility] Work Phone: [facility] Comment on above: Results (genetic kalia ting negative) Start: 09-12-2021 End: 09-12-2021 Office outpatient visit 15 minutes Megan Conklin DO Work Phone: [facility] Comment on above: Hemiplegic cerebral palsy (HCC) (Primary Dx); Paraplegia (HCC); Type 2 diabetes mellitus with other specified complication, without long-term current use of insulin (HCC) Start: 09-01-2021 End: 09-01-2021 Patient encounter procedure Mili Moncada [facility] Work Phone: [facility] Comment on above: Family history of ma lignant neoplasm of breast (Primary Dx); At high risk for breast cancer Start: 09-01-2021 End: 09-01-2021 Subsequent hospital visit by physician Diagnostic Mammo [facility] 2 [facility] Comment on above: 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 Ion Williamson [facility] Start: 06-15-2021 End: 06-15-2021 Emergency department patient visit Dr. Ion Williamson Work Phone: [facility]-Emergency Department Start: 06-13-2021 End: 06-13-[address] Ion Williamson Work Phone: [facility]-Laboratory Start: 06-12-[address] Janny Williamson [facility] Start: 06-06-2021 End: 06-06-[address] Ion Williamson Work Phone: [facility]-Laboratory Start: 05-24-2021 End: 06-08-[address] Ion Williamson [facility] Start: 04-19-2021 End: 05-08-[address] Ion Williamson Work Phone: [facility] Start: 04-16-2021 End: 04-16-[address] Ion Williamson [facility] Start: 03-15-2021 End: 04-10-[address] Ion Williamson Work Phone: [facility] Start: 03-02-2021 Telephone encounter Jazmin dia MD Work Phone: [facility] Comment on above: Results Start: 02-28-2021 End: 02-28-2021 Subsequent hospital visit by physician Stereo/Ultrasound Biopsy [facility] Comment on above: Arrived Breast calcification , right [R92.1] Start: 02-23-2021 End: 03-10-[address] Ion Williamson Work Phone: [facility] Start: 02-08-2021 Orders Only Jazmin stanford MD Work Phone: [facility] Comment on above: Breast calcification , right (Primary Dx) Start: 02-07-2021 End: 02-07-2021 Subsequent hospital visit by physician Stereo/Ultrasound Biopsy [facility] Comment on above: Arrived Breast calcification , right [R92.1] Start: 02-07-2021 End: 02-07-2021 Patient encounter procedure Jazmin Zazueta MD Work Phone: [facility] Comment on above: Breast calcification , right (Primary Dx) Procedures Date Procedure Procedure Detail Performing Clinician Start: 09-22-2024 Hemoglobin glycosylated a1c Saul Armijo [employer] EQUIPMENT MECHANIC - SUPERINTENDENT AUTOMOTIVE Work Phone: Start: 06-10-2024 Lipid 1996 panel - S stephon or Plasma Ion Williamson DO Work Phone: Start: 01-14-2024 Hemoglobin glycosylated a1c Saul Armijo [employer] EQUIPMENT MECHANIC - SUPERINTENDENT AUTOMOTIVE Work Phone: Start: 11-29-2023 End: 11-29-2023 Glucose quantitative blood xcpt reagent strip Robert Bruce MD Work Phone: Start: 11-28-2023 Glucose quantitative blood xcpt reagent strip Robert Bruce MD Work Phone: Start: 11-28-2023 Glucose quantitative blood xcpt reagent strip Robert Bruce MD Work Phone: Start: 11-28-2023 Glucose quantitative blood xcpt reagent strip Robert Bruce MD Work Phone: Start: 11-28-2023 Glucose quantitative blood xcpt reagent strip Robert Bruce MD Work Phone: Start: 11-28-2023 Glucose quantitative blood xcpt reagent strip Robert Bruce MD Work Phone: Start: 11-27-2023 Glucose quantitative blood xcpt reagent strip Robert Bruce MD Work Phone: Start: 11-27-2023 Glucose quantitative blood xcpt reagent strip Robert Bruce MD Work Phone: Start: 11-27-2023 Glucose quantitative blood xcpt reagent strip Robert Bruce MD Work Phone: Start: 11-27-2023 Glucose quantitative blood xcpt reagent strip Robert Bruce MD Work Phone: Start: 11-27-2023 Blood count complete automated Lainey Linda DO Work Phone: Start: 11-26-2023 Glucose quantitative blood xcpt reagent strip Robert Bruce MD Work Phone: Start: 11-26-2023 Glucose quantitative blood xcpt reagent strip Robert Bruce MD Work Phone: Start: 11-26-2023 Glucose quantitative blood xcpt reagent strip Robert Bruce MD Work Phone: Start: 11-26-2023 Glucose quantitative blood xcpt reagent strip Robert Bruce MD Work Phone: Start: 11-26-2023 Cytp slctv cell enha ncement interpj xcpt c/v Robert Bruce MD Work Phone: Start: 11-26-2023 End: 11-26-2023 Total abdominal hysterect w/wo rmvl tube ovary Robert Bruce MD Work Phone: Start: 11-26-2023 Glucose quantitative blood xcpt reagent strip Robert Bruce MD Work Phone: Start: 11-19-2023 Antibody screen ION WILLIAMSON Comment on above: Performed By: #### L [id number] #### Irrigation Equipment Mechanic: VICKY GARCIA ([id number]) [facility] ([facility]) [address] [place] [address] Start: 06-14-2023 End: 06-14-2023 Digital breast tomosynthesis unilateral Vicky Davidson APRN.SUPERINTENDENT AUTOMOTIVE Work Phone: Start: 05-06-2023 End: 05-06-2023 Bilateral mammography Start: 05-31-2022 Plain chest X-ray Dr. Yesenia Williamson Work Phone: Start: 04-27-2022 End: 04-27-2022 Digital breast tomosynthesis bilateral Jazmin Zazueta MD Work Phone: Start: 03-10-2022 Plain chest X-ray Dr. Yesenia Williamson Work Phone: Start: 10-16-2021 CMP EXTERNAL QAI [place] cinda K Regula DO Work Phone: Start: 10-16-2021 Hemoglobin A1c/Hemoglobin.total in Blood Megan Lawrence Regula DO Work Phone: Start: 10-16-2021 Lipid panel Megan K Regula DO Work Phone: Start: 09-01-2021 Diagnostic mammograp hy computer-aided detcj daija Zazueta MD Work Phone: Start: 02-28-2021 Diagnostic mammograp hy computer-aided detcj uni Jazmin Zazueta MD Work Phone: Start: 02-28-2021 Bx breast w/device 1 st lesion ultrasound guid Jazmin Zazueta MD Work Phone: Start: 02-07-2021 Us breast uni real t arlene with image limited Jazmin Zazueta MD Work Phone: Start: 02-07-2021 Diagnostic mammograp hy computer-aided detcj uni Jzamin Zazueta MD Work Phone: Start: 12-22-2020 Mammography Jazmin sawyer MD Work Phone: Start: 07-25-2018 Colonoscopy Megan Win lopezmarisa SCOTT Work Phone: Plan of Treatment Date Care Activity Detail Author Start: 2040 RSV Immunization for Adults (1 - 1-dose 75+ series) RSV Immunization for Adults (1 - 1-dose 75+ series) [facility] Start: 07-25-2028 Colonoscopy COLONOSCOPY [facility] Start: 07-25-2028 COLORECTAL CANCER SCREENING COLORECTAL CANCER SCREENING [facility] Start: 07-25-2028 Screening for malign ant neoplasm of colon [facility] Start: 2025 RSV Immunization age d 60 or older (1 - 1-dose 60+ series) RSV Immunization aged 60 or older (1 - 1-dose 60+ series) [facility] Start: 09-22-2025 Hemoglobin A1c measurement Diabetes: Hemoglobin A1C [facility] Start: 06-10-2025 Hemoglobin A1c measurement Diabetes: Hemoglobin A1C [facility] Start: 06-10-2025 Lipid panel Lipid Panel [facility] Start: 04-26-2025 End: 04-26-2025 Patient encounter procedure 04/26/2025 8:00 AM EST Office Visit [facility] [address] [place] [address] Saul Armijo APRN - CNP [address] [place], [place] [id number] [facility] Start: 04-10-2025 Glaucoma screening Diabetes: R etinopathy Screening [facility] Start: 01-13-2025 Diabetic foot examination Diabetes: Foot Exam [facility] Start: 01-13-2025 Hemoglobin A1c measurement Diabetes: Hemoglobin A1C [facility] Start: 12-21-2024 End: 12-21-2024 Patient encounter procedure 12/21/2024 8:40 AM EDT Office Visit [facility] [address] [place] [phone] Chung Miner MD [address] [place] [address] [facility] Start: 12-11-2024 End: 09-22-2025 25-hydroxyvitamin D3 [Mass/volume] in Serum or Plasma Vitamin D Deficiency Screening (Vit D 25) Lab Routine Type 2 diabetes mellitus with hyperglycemia, with long-term current use of insulin (HCC) Hypertension associated with type 2 diabetes mellitus (HCC) Class 2 severe obesity with serious comorbidity and body mass index (BMI) of 37.0 to 37.9 in adult, unspecified obesity type (HCC) Expected: 12/11/2024 (Approximate), Expires: 09/22/2025 [facility] Comment on above: Expected: 12/11/2024 (Approximate), Expires: 09/22/2025 Start: 12-11-2024 End: 09-22-2025 Comprehensive metabolic 1998 panel - Serum or Plasma Comprehensive metabolic panel Lab Routine Type 2 diabetes mellitus with hyperglycemia, with long-term current use of insulin (HCC) Expected: 12/11/2024 (Approximate), Expires: 09/22/2025 [facility] Comment on above: Expected: 12/11/2024 (Approximate), Expires: 09/22/2025 Start: 12-11-2024 End: 09-22-2025 Hemoglobin A1c measurement Hemoglobin A1c Lab Routine Type 2 diabetes mellitus with hyperglycemia, with long-term current use of insulin (HCC) Expected: 12/11/2024 (Approximate), Expires: 09/22/2025 [facility] Work Phone: Comment on above: Expected: 12/11/2024 (Approximate), Expires: 09/22/2025 Start: 12-11-2024 End: 09-22-2025 Lipid 1996 panel - Serum or Plasma Lipid panel Lab Routine Type 2 diabetes mellitus with hyperglycemia, with long-term current use of insulin (HCC) Expected: 12/11/2024 (Approximate), Expires: 09/22/2025 [facility] Comment on above: Expected: 12/11/2024 (Approximate), Expires: 09/22/2025 Start: 11-18-2024 Diabetes: Estimated Glomerular Filtration Rate for Kidney Health Diabetes: Estimated Glomerular Filtration Rate for Kidney Health [facility] Start: 11-18-2024 Hemoglobin A1c measurement Diabetes: Hemoglobin A1C [facility] Start: 11-09-2024 Influenza vaccination S [facility] Start: 09-22-2024 End: 09-22-2024 Patient encounter procedure 09/22/2024 8:00 AM EDT Office Visit [facility] [address] [place] [address] Saul Armijo ELECTRIC BRAIN WAVE EQUIPMENT MECHANIC - SUPERINTENDENT AUTOMOTIVE [address] [place] [address] [facility] Start: 06-18-2024 End: 06-18-2024 Patient encounter procedure 06/18/2024 8:00 AM EDT Office Visit [facility] [address] [place] [address] Saul Armijo, ELECT[employer] WAVE EQUIPMENT MECHANIC - SUPERINTENDENT AUTOMOTIVE [address] [place] [address] [facility] Start: 06-13-2024 Screening for malign ant neoplasm of breast Mammogram [facility] Start: 05-06-2024 Screening for malign ant neoplasm of breast Mammogram [facility] Start: 04-15-2024 End: 01-13-2025 Comprehensive metabolic 1998 panel - Serum or Plasma Comprehensive metabolic panel Lab Routine Type 2 diabetes mellitus with hyperglycemia, with long-term current use of insulin (HCC) Essential (primary) hypertension Expected: 04/15/2024 (Approximate), Expires: 01/13/2025 [facility] Comment on above: Expected: 04/15/2024 (Approximate), Expires: 01/13/2025 Start: 04-15-2024 End: 01-13-2025 Hemoglobin A1c measurement Hemoglobin A1c Lab Routine Type 2 diabetes mellitus with hyperglycemia, with long-term current use of insulin (HCC) Expected: 04/15/2024 (Approximate), Expires: 01/13/2025 [facility] Comment on above: Expected: 04/15/2024 (Approximate), Expires: 01/13/2025 Start: 04-15-2024 End: 01-13-2025 Lipid 1996 panel - Serum or Plasma Lipid panel Lab Routine Type 2 diabetes mellitus with hyperglycemia, with long-term current use of insulin (HCC) Expected: 04/15/2024 (Approximate), Expires: 01/13/2025 [facility] Work Phone: Comment on above: Expected: 04/15/2024 (Approximate), Expires: 01/13/2025 Start: 04-15-2024 End: 01-13-2025 Microalbumin/Creatinine panel in random Urine Microalbumin / creatinine urine ratio Lab Routine Type 2 diabetes mellitus with hyperglycemia, with long-term current use of insulin (HCC) Essential (primary) hypertension Expected: 04/15/2024 (Approximate), Expires: 01/13/2025 [facility] Comment on above: Expected: 04/15/2024 (Approximate), Expires: 01/13/2025 Start: 04-15-2024 End: 01-13-2025 Thyrotropin [Units/volume] in Serum or Plasma TSH Lab Routine Type 2 diabetes mellitus with hyperglycemia, with long-term current use of insulin (HCC) Obesity (BMI 30-39.9) Expected: 04/15/2024 (Approximate), Expires: 01/13/2025 [facility] Comment on above: Expected: 04/15/2024 (Approximate), Expires: 01/13/2025 Start: 04-15-2024 End: 01-13-2025 Thyroxine (T4) free [Mass/volume] in Serum or Plasma T4, free Lab Routine Type 2 diabetes mellitus with hyperglycemia, with long-term current use of insulin (HCC) Expected: 04/15/2024 (Approximate), Expires: 01/13/2025 [facility] Comment on above: Expected: 04/15/2024 (Approximate), Expires: 01/13/2025 Start: 03-18-2024 End: 03-18-2024 Patient encounter procedure 03/18/2024 10:30 AM EST Office Visit [facility] [address] [place] [phone] Saul Armijo APRN [facility] [address] [place] [address] [facility] Start: 01-14-2024 End: 01-14-2024 Clinical Support [facility] Start: 12-16-2023 End: 12-16-2023 Patient encounter procedure [facility] Gynecologic Oncology [facility] Start: 12-13-2023 End: 12-13-2023 Patient encounter procedure 12/13/2023 8:30 AM EDT Office Visit [facility] Gynecologic Oncology [address] [place] [phone] Robert Bruce MD [address] [place] [phone] [facility] Gynecologic Oncology Start: 11-26-2023 End: 11-26-2023 Admission to same day surgery center 11/26/2023 9:00 AM EDT - 11/26/2023 10:30 AM EDT Surgery [facility] OR [address] [place] [phone] Robert Bruce MD [address] [place] [address] TOTAL ABDOMINAL HYSTERECTOMY BILATERAL SALPINGO OOPHORECTOMY [21143 (CPT )] [facility] Comment on above: TOTAL ABDOMINAL HYST ERECTOMY BILATERAL SALPINGO OOPHORECTOMY [34006 (CPT )] Start: 11-26-2023 Subsequent hospital visit by physician 11/26/2023 9:00 AM EDT Hospital Encounter [facility] [address] [place] [phone] Robert Bruce MD [address] [place] [address] [facility] Start: 11-26-2023 End: 11-26-2023 Total abdominal hysterect w/wo rmvl tube ovary TOTAL ABDOMINAL HYSTERECTOMY Intra-abdominal and pelvic swelling, mass and lump, unspecified site 11/26/2023 9:00 AM EDT [facility] Operating [facility] Start: 11-19-2023 End: 11-19-2023 Admission to establishment 11/19/2023 9:30 AM EDT Pre-Admission Testing [facility] Pre-Admit Testing [address] [place] [address] [facility] Pre-Admit Testing Start: 11-10-2023 COVID-19 Vaccine ( season) COVID-19 Vaccine ( season) [facility] Start: 11-10-2023 Influenza vaccination Influenza Vacc ine (#1) [facility] Start: 04-27-2023 Mammography [facility] Start: 04-27-2023 Screening for malign ant neoplasm of breast Mammogram Screening [facility] Start: 03-11-2023 Behavioral Health Screening Behavioral Health Screening [facility] Start: 11-09-2022 Influenza vaccination INFLUENZA (#1) [facility] Start: 10-19-2022 ANNUAL PCP TEAM CIVIL DIVISION DEPUTY SHERIFF KIRAN DISEASE VISIT ANNUAL PCP TEAM CHRONIC DISEASE VISIT [facility] Start: 10-16-2022 Hepatitis B surface antibody level LDL CHOLESTEROL [facility] Start: 09-12-2022 ANNUAL PCP TEAM CIVIL DIVISION DEPUTY SHERIFF KIRAN DISEASE VISIT ANNUAL PCP TEAM CHRONIC DISEASE VISIT [facility] Start: 05-03-2022 Diabetes: Estimated Glomerular Filtration Rate for Kidney Health Diabetes: Estimated Glomerular Filtration Rate for Kidney Health [facility] Start: 05-03-2022 Hemoglobin A1c measurement Diabetes: Hemoglobin A1C [facility] Start: 04-18-2022 Hemoglobin A1c measurement HbA1C [facility] Start: 04-18-2022 Hemoglobin A1c/Hemoglobin.total in Blood HBA1C [facility] Start: 03-11-2022 DEPRESSION ASSESSMENT DEPRESSION ASS ESSMENT [facility] Start: 12-22-2021 Mammography MAMMOGRAM [facility] Start: 12-13-2021 Hepatitis B surface antibody level LDL CHOLESTEROL [facility] Start: 11-09-2021 Influenza vaccination INFLUENZA (#1) [facility] Start: 10-31-2021 Hemoglobin A1c/Hemoglobin.total in Blood HBA1C [facility] Start: 09-12-2021 End: 11-12-2021 CBC W Auto Differential panel - Blood CBC + DIFF Lab Routine Type 2 diabetes mellitus with other specified complication, without long-term current use of insulin (HCC) Expected: 09/12/2021, Expires: 11/12/2021 [facility] Work Phone: Comment on above: Expected: 09/12/2021 , Expires: 11/12/2021 Start: 09-12-2021 End: 11-12-2021 Comprehensive metabolic 2000 panel - Serum or Plasma COMP METABOLIC PANEL Lab Routine Type 2 diabetes mellitus with other specified complication, without long-term current use of insulin (HCC) Expected: 09/12/2021, Expires: 11/12/2021 [facility] Work Phone: Comment on above: Expected: 09/12/2021 , Expires: 11/12/2021 Start: 09-12-2021 End: 11-12-2021 Hemoglobin A1c in Blood HGB A1C Lab Routine Type 2 diabetes mellitus with other specified complication, without long-term current use of insulin (HCC) Expected: 09/12/2021, Expires: 11/12/2021 [facility] Work Phone: Comment on above: Expected: 09/12/2021 , Expires: 11/12/2021 Start: 09-12-2021 End: 11-12-2021 Lipid 1996 panel - Serum or Plasma LIPID PANEL BASIC Lab Routine Type 2 diabetes mellitus with other specified complication, without long-term current use of insulin (HCC) Expected: 09/12/2021, Expires: 11/12/2021 [facility] Work Phone: Comment on above: Expected: 09/12/2021 , Expires: 11/12/2021 Start: 05-16-2021 COVID-19 VACCINE (4 - Booster for Pfizer series) COVID-19 VACCINE (4 - Booster for Pfizer series) [facility] Start: 10-19-2015 SHINGRIX VACCINE (1 of 2) SHINGRIX VACCINE (1 of 2) [facility] Start: 10-19-2015 Zoster Vaccines (1 o f 2) Zoster Vaccines (1 of 2) [facility] Start: 2010 COLOGUARD (FIT-DNA) COLOGUARD (FIT-D NA) [facility] Start: 2010 Colonoscopy COLONOSCOPY [facility] Start: 2010 COLORECTAL CANCER SCREENING COLORECTAL CANCER SCREENING [facility] Start: [address] COLONOGRAPHY [facility] Start: 2010 FECAL OCCULT BLOOD FECAL OCCULT BLOO D [facility] Start: 2010 Screening for malign ant neoplasm of colon [facility] Start: 2010 SIGMOIDOSCOPY SIGMOIDOSCOPY [facility] Start: 2005 Mammography MAMMOGRAM [facility] Start: 10-19-1995 HPV TESTING HPV TESTING [facility] Start: 10-19-1995 Screening for malign ant neoplasm of cervix [facility] Start: 1986 PAP TESTING PAP TESTING [facility] Start: 1986 Screening for malign ant neoplasm of cervix [facility] Start: 1984 DTaP/Tdap/Td Vaccine s (1 - Tdap) DTaP/Tdap/Td Vaccines (1 - Tdap) [facility] Start: 1984 Hepatitis A Vaccines (1 of 2 - Risk 2-dose series) Hepatitis A Vaccines (1 of 2 - Risk 2-dose series) [facility] Start: 1984 HEPATITIS B (1 of 3 - Risk 3-dose series) HEPATITIS B (1 of 3 - Risk 3-dose series) [facility] Start: 1984 Hepatitis B Vaccine (1 of 3 - 19+ 3-dose series) Hepatitis B Vaccine (1 of 3 - 19+ 3-dose series) [facility] Start: 1984 Hepatitis B Vaccines (1 of 3 - 19+ 3-dose series) Hepatitis B Vaccines (1 of 3 - 19+ 3-dose series) [facility] Start: 1984 Pneumococcal Vaccine : 50+ Years (1 of 2 - PCV) Pneumococcal Vaccine: 50+ Years (1 of 2 - PCV) [facility] Start: 1984 Urine microalbumin profile [facility] Start: 10-19-1983 ANNUAL PCP TEAM CIVIL DIVISION DEPUTY SHERIFF KIRAN DISEASE VISIT ANNUAL PCP TEAM CHRONIC DISEASE VISIT [facility] Start: 10-19-1983 BP CONTROLLED (<130/80) BP CONTROLLE D (<130/80) [facility] Start: 10-19-1983 Diabetes: Urine Albumin-Creatinine Ratio for Kidney Health Diabetes: Urine Albumin-Creatinine Ratio for Kidney Health [facility] Start: 10-19-1983 Hepatitis B surface antibody level LDL CHOLESTEROL [facility] Start: 10-19-1983 HEPATITIS C SCREENING HEPATITIS C [facility] Start: 10-19-1983 Hepatitis C screening Hepatitis C [facility] Start: 10-19-1983 HIV SCREENING HIV SCREENING [facility] Start: 10-19-1983 HIV screening HIV Screening [facility] Start: 1981 ONE PNEUMOVAX PRIOR TO AGE 65 ONE PNEUMOVAX PRIOR TO AGE 65 [facility] Start: 1977 Adult depression screening assessment DEPRESSION SCREENING [facility] Start: 10-19-1975 3 comp foot exam completed DIABETIC FOOT EXAM [facility] Start: 10-19-1975 Diabetic foot examination [facility] Start: 10-19-1975 Glaucoma screening [facility] Start: 10-19-1975 Hepatitis B screening URINE ALBUMIN:CREATININE RATIO [facility] Start: 10-19-1975 Hepatitis C antibody , confirmatory test DILATED RETINAL EXAM [facility] Start: 10-19-1975 Preventive dental service Diabetes: Dental Exam [facility] Start: 10-19-1971 PNEUMOCOCCAL (1 - PCV) PNEUMOCOCCAL (1 - PCV) [facility] Start: 10-19-1971 Pneumococcal vaccination [facility] Start: 10-19-1971 Pneumococcal Vaccine : Pediatrics (0 to 5 Years) and At-Risk Patients (6 to 64 Years) (1 of 2 - PCV) Pneumococcal Vaccine: Pediatrics (0 to 5 Years) and At-Risk Patients (6 to 64 Years) (1 of 2 - PCV) [facility] Start: 1970 Hemoglobin A1c/Hemoglobin.total in Blood HBA1C [facility] Start: 1966 MMR Vaccines (1 of 1 - Standard series) MMR Vaccines (1 of 1 - Standard series) [facility] Start: 1965 HEPATITIS B (1 of 3 - 3-dose series) HEPATITIS B (1 of 3 - 3-dose series) [facility] Start: 1965 Hepatitis B Vaccine (1 of 3 - 3-dose series) Hepatitis B Vaccine (1 of 3 - 3-dose series) [facility] Start: 1965 HIV screening HIV Screening [facility] Start: 1965 Lipid panel Lipid Panel [facility] Start: 1965 Screening for malign ant neoplasm of colon [facility] End: 03-10-2022 Bx breast w/device 1st lesion ultrasound guid US BIOPSY BREAST RT Radiology Routine Breast calcification, right 1 Occurrences starting 02/08/2021 until 03/10/2022 [facility] Work Phone: Comment on above: 1 Occurrences starti ng 02/08/2021 until 03/10/2022 End: 11-17-2022 Digital breast tomosynthesis bilateral GUILLERMINA DIAG W ROBERTO BILAT Radiology Routine Abnormal mammogram 1 Occurrences starting 2021 until 11/17/2022 [facility] Work Phone: Comment on above: 1 Occurrences starti ng 2021 until 11/17/2022 End: 12-08-2023 GUILLERMINA DIAG W ROBERTO BILATERAL GUILLERMINA DIAG W ROBERTO BILATERAL Radiology Routine Breast calcification, right 1 Occurrences starting 11/09/2022 until 12/08/2023 [facility] Work Phone: Comment on above: 1 Occurrences starti ng 11/09/2022 until 12/08/2023 Patient Education [facility] Work Phone: Patient referral [facility] Work Phone: SURGICAL PATHOLOGY SURGICAL PATH OLOGY Lab Routine 02/28/2021 9:33 AM EST [facility] Work Phone: Tissue exam [facility] Work Phone: Comment on above: Release Upon Orderin g for 1 Occurrences starting 11/26/2023, 1 completed End: 02-03-2024 US BREAST LTD LEFT US BREAST LTD LEFT Radiology Routine Unspecified lump in axillary tail of the left breast 1 Occurrences starting 01/04/2023 until 02/03/2024 [facility] Work Phone: Comment on above: 1 Occurrences starti ng 01/04/2023 until 02/03/2024 End: 03-05-2024 US BREAST LTD LEFT US BREAST LTD LEFT Radiology Routine Mass of axillary tail of left breast 1 Occurrences starting 02/04/2023 until 03/05/2024 [facility] Work Phone: Comment on above: 1 Occurrences starti ng 02/04/2023 until 03/05/2024 US Pelvis [facility] Immunizations Immunization Date Immunization Notes Care Provider [facility] 12-17-2022 influenza virus vaccine, unspecified formulation Robert Bruce MD Work Phone: [facility] 11-28-2020 Seasonal, quadrivale nt, recombinant, injectable influenza vaccine, preservative free Megan Regula DO Work Phone: [facility] 11-23-2020 influenza nasal, unspecified formulation Megan Regula DO Work Phone: [facility] 11-30-2019 influenza nasal, unspecified formulation Megan Regula DO Work Phone: [facility] 11-19-2019 Seasonal, quadrivale nt, recombinant, injectable influenza vaccine, preservative free Megan Regula DO Work Phone: [facility] 11-21-2018 influenza, injectabl e, quadrivalent, preservative free Megan Regula DO Work Phone: [facility] 12-16-2017 influenza, injectabl e, quadrivalent, preservative free Megan Regula DO Work Phone: [facility] 05-19-2017 influenza, injectabl e, quadrivalent, preservative free [facility] 05-19-2017 influenza, seasonal, injectable Dr. Ion Williamson Work Phone: [facility] 05-19-2017 influenza, seasonal, injectable, preservative free Megan Regula DO Work Phone: [facility] Payers Date Payer Category Payer Self-pay [id number] 2022 [employer] Blue Shie ld [facility] Care - O [id number] 2020 Unknown [employer] C[employer] PPO OOS [id number] 2020-Present [phone] [address] [place] [address] PPO [id number] 2020 Unknown [id number] 2020 Unknown [id number] Unknown [id number] Unknown [id number] Unknown [id number] Unknown [id number] Unknown [id number] Unknown [id number] .462 Unknown [id number] Unknown [id number] Unknown [id number] Unknown [id number] .[id number] Unknown [id number] Unknown [id number] Unknown [id number] Social History Date Type Detail Facility Start: 02-07-2021 End: 09-26-2023 Tobacco smoking status NHIS Never smoked tobacco [facility] Start: 02-07-2021 End: 10-16-2023 Tobacco use and exposure Smokeless tobacco non-user [facility] Start: 1965 Sex Assigned At Not on file C [facility] Start: 08-22-2021 End: 2021 Exposure to SARS-CoV-2 (event) Not sure [facility] Start: 04-16-2021 End: 06-25-2023 Tobacco smoking status SCIS Unknown if ever smoked [facility] Start: 05-19-2017 None [facility] Start: 02-17-2015 Spouse/ Significant Oth er [facility] Start: 03-11-2015 Non-smoker [facility] Start: 1965 Sex Assigned At Female W [facility] Start: 09-12-2021 Alcohol intake Lifetime non-d aylin (finding) [facility] Start: 09-12-2021 History SDOH Alcohol Frequency 1 [facility] Start: 2021 End: 09-22-2024 Alcohol intake Current drinker of alcohol (finding) [facility] Start: 2021 History SDOH Alcohol Comment occationally [facility] Start: 10-19-2021 History SDOH Alcohol Comment occasionally [facility] Start: 11-09-2022 End: 09-22-2024 History of Social function [facility] Start: 11-09-2022 End: 09-22-2024 Tobacco use panel [facility] National Score (1-100), lower number is lower risk 72 [facility] Start: 10-16-2023 Alcohol Comment social [facility] Start: 11-19-2023 Alcohol Comment 1-2 drinks per month [facility] Start: 10-16-2023 End: 06-16-2024 Sex Female (finding) [facility] Medical Equipment Procedure Code Equipment Code Equipment Origin al Text Equipment Identifier Dates [id number], [id number], [id number], [id number], [id number], [id number] Start: 08-04-2021 End: 09-22-2024 Comment on above: USE TO TEST BLOOD TORRES GAR TWICE DAILY Mental Status Date Assessment Result Facility 06-15-2021 Cognitive function Level Of Cons ciousness Awake;Alert;Follows Commands [facility] Work Phone: Clinical Notes 02-07-2021 to 09-22-2024 BARBARA Cohen CNP - 09/22/2024 8:00 AM EDTPatient InstructionsTelephone Encounter - Ofelia Buchanan MA - 09/14/2024 12:33 PM EDBARBARA Segura CNP - 06/18/2024 11:30 AM EDT Note Date & Type Note Facility 09-22-2024 History of Present illness Narrative Images from the original note were not included. [facility] [address] [place] [address] Dept: [phone] Dept Loc: [phone] Visit type: Established Patient Reason for Visit: Diabetes Assessment and Plan 1. Type 2 diabetes mellitus with hyperglycemia, with long-term current use of insulin (HCC) - AMB POC HEMOGLOBIN A1C - Hemoglobin A1c - Comprehensive metabolic panel - Lipid panel - Vitamin D Deficiency Screening (Vit D 25) - rosuvastatin (Crestor) 5 MG tablet; Take 1 tablet (5 mg) by mouth Nightly., Starting Sat09/22/2024, Until Sat09/22/2025, Normal - Tirzepatide (Mounjaro) 5 MG/0.5ML solution auto-injector; Inject 5 mg under the skin every 7 days., Starting Sat09/22/2024, Normal 2. Hypertension associated with type 2 diabetes mellitus (HCC) - Vitamin D Deficiency Screening (Vit D 25) 3. Class 2 severe obesity with serious comorbidity and body mass index (BMI) of 37.0 to 37.9 in adult, unspecified obesity type (HCC) - Vitamin D Deficiency Screening (Vit D 25) Lab Results Component Value Date HGBA1C 6.3 (A) 09/22/2024 HGBA1C 6.2 (A) 06/10/2024 HGBA1C 9.5 (A) 01/14/2024 Lab Results Component Value Date EGFR >90.0 11/19/2023 TSH 1.36 06/10/2024 TRIG 130 06/10/2024 LDLCALC 64 06/10/2024 DM2 Diabetes is: improving Glycemic Target: 7% Recommendations: Mounjaro 5mg weekly; continue; consider dose increased after re-eval of GI AE Rosuvastatin 5mg daily started 06/2024 OV for risk reduction; continue *Metamucil OTC trial for GI AE *Taper insulin as able with Mounjaro optimization -Hypo: glucagon on hand -Meter/Supplies: on hand --> Labs to be done fasting prior to next visit; discussed holding supplements 5 days prior. 3 months --> BG monitoring: DD 2 weeks w/ update on GI AE Education: - Notification Parameters HTN PCP Managed Lozol BP stable --> Continue current therapy Obesity Body mass index is 37.08 kg/m . Wt Readings from Last 3 Encounters: 09/22/24 183 lb 9.6 oz (83.3 kg) 06/18/24 183 lb 8 oz (83.2 kg) 03/18/24 183 lb 4.8 oz (83.1 kg) --> Continue to work on lifestyle changes: dietary habits; increasing activity as able, weight reduction --> Optimize DM agents to aid w/ the same. [x] Records from outside facility/PCP office to be requested. UACR results from [facility] [x] Scripts sent to pharmacy of choice. No follow-ups on file. Diagnostic Data Reviewed Today: CGM AGP Reviewed: Yes Subjective HPI PCP: Ion Williamson DO DSME: 01/14/2024-Johnna; general ed Since RANDY: RANDY 06/2024 w/ me Insulin DC ~08/21/2024 re: improved trends TIR 70s per pt Still following w/ RD in [place] Hospitalizations/Surgeries: Denies Medication Cost Concerns: Denies Missed Medication Doses: Denies Medication Side Effect: Endorses- some constipation w/ Mounjaro; alleviated w/ prunes Recent Steroid use: Endorses Recent Weight Changes: Denies- stable 183 Exercise Patterns: ADLs. Wheelchair-bound. Dietary Patterns: when out of school: 6-10am/130p/7pm; in school schedule: /p Employment/Lifestyle Patterns/Schedule Alterations: Works at [employer]. 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 History of Type 2 Diabetes Age at Onset: 56 yo Circumstances surrounding dx: polyuria--> screening Previous hospitalizations for DM: Endorses-11/2023 hyperglycemia s/p BL salpingoophorectomy Family hx DM: Endorses-Maternal Grandmother Family hx thyroid disease/thyroid cancer: Denies Current Medication Regimen: Mounjaro 5mg weekly Rosuvastatin 5mg daily started 06/2024 OV for risk reduction Previously Used DM Agents: Metformin: diarrhea Glimepiride: DC by IP service Novolog: DC 01/2024 re: improved trends; DC again 03/18/2024 OV Ozempic: DC 06/2024 OV in favor of Mounjaro Basaglar: DC 08/2024 re: improved trends Injection Sites/Rotation: rotates; has help administering from friend; pt self admin at work legs OTC Supplement Usage: Endorses-vitamin C intermittently Glucose Monitoring CGM use: Yes-Dexcom G7 w/ phone BG Monitoring: one touch verio on hand Recent Hypoglycemia: Denies Hypoglycemic Treatment Plan: glucagon and glucose tabs BG Trends: TIR 73%; post meal elevation present Trend Review: Complication History Retinopathy: Denies - Last Dilated Eye Exam: 04/10/24; Dr Ornelas ([facility]) Neuropathy: Denies - Last DMFE: 01/14/2024. Community Service Representative: ALISSON HTN: Endorses HLD: Denies- statin started 06/18/2024 for risk reduction Renal: Denies Cardiac: Denies CVA: Endorses-1x as child JAZMINE: Denies Gastroparesis: Denies H/o Pancreatitis: Denies Impaired Wound Healing: Denies Amputation: Denies Metabolic Dysfunction Associated Steatotic Liver Disease: Endorses Hypoglycemic Unawareness: Denies Cerebral Palsy Review of Systems ROS was performed at the time of this encounter. Unless noted above in the HPI, the ROS is negative. Allergies Allergen Reactions Amoxicillin Other Reaction(s): GI Upset, Nausea Other Reaction(s): Nausea Outpatient Medications Prior to Visit Medication Sig Dispense Refill acetaminophen (Tylenol) 325 MG suppository Insert into the rectum. albuterol 108 (90 Base) MCG/ACT inhaler Inhale 2 puffs every 6 hours as needed for wheezing. Alcohol Swabs pads Use as directed 4 times daily 400 each 11 Ascorbic Acid (vitamin C) 100 MG tablet Take 100 mg by mouth as needed. cetirizine (ZyrTEC) 10 MG tablet Take by mouth as needed for allergies. Continuous Glucose Sensor ([employer] G7 Sensor) misc Use every 10 days 9 each 5 diazePAM (Valium) 5 MG tablet TAKE 1 TABLET BY MOUTH ONCE DAILY ONE HOUR BEFORE MEDICAL PROCEDURES. MUST LAST 90 DAYS OR LONGER. fluticasone (Flonase) 50 MCG/ACT nasal spray Administer 2 sprays into each nostril daily. Shake gently. Before first use, prime pump. After use, clean tip and replace cap. glucagon (Baqsimi Two Pack) 3 MG/DOSE nasal powder Administer 3 mg into affected nostril(s) Once as needed for low blood sugar. 2 each 3 glucose 4 g chewable tablet Chew 4 tablets (16 g) Daily as needed for low blood sugar. 50 tablet 3 indapamide (Lozol) 2.5 MG tablet daily. Lancets (OneTouch Delica Plus [id number]) misc 1 each as needed for CGM failure 4 times daily 400 each 11 ondansetron (Zofran) 4 MG tablet Take by mouth. PRN OneTouch Verio test strip Use as instructed for CGM failure QID 400 each 11 potassium chloride CR (Klor-Con M20) 20 MEQ ER tablet Take 20 mEq by mouth daily. Take with food. rosuvastatin (Crestor) 5 MG tablet Take 1 tablet (5 mg) by mouth Nightly. 90 tablet 3 Tirzepatide (Mounjaro) 5 MG/0.5ML solution auto-injector INJECT 5 MG SUBCUTANEOUSLY ONCE WEEKLY. 6 mL 11 apixaban (Eliquis) 2.5 MG tablet Take 1 tablet (2.5 mg) by mouth 2 times daily for 28 days. (Patient not taking: Reported on 09/22/2024) 56 tablet 0 insulin pen needle 32G x 4 mm misc 4 times daily 100 each 11 No facility-administered medications prior to visit. 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 Social History Tobacco Use Smoking status: Never Smokeless tobacco: Never Substance Use Topics Alcohol use: Yes Comment: 1-2 drinks per month Past Surgical History: Procedure Laterality Date ACHILLES TENDON SURGERY Bilateral BACK SURGERY BX OF BREAST, NEEDLE CORE, IMAGE GUIDE (HISTORICAL) Right 02/28/2021 benign DILATION AND CURETTAGE OF UTERUS 09/2023 attempted OTHER SURGICAL HISTORY Bilateral hamstring surgery ROTATOR CUFF REPAIR Right 2014 THUMB SURGERY (HISTORICAL) TOTAL HIP ARTHROPLASTY Left Family History Problem Relation Name Age of Onset Breast cancer Mother Diabetes Maternal Grandmother Objective BP 128/80 Pulse 87 Ht 4' 11 (1.499 m) Wt 183 lb 9.6 oz (83.3 kg) LMP 11/19/2023 (Exact Date) Comment: random bleeding BMI 37.08 kg/m Physical Exam Vitals reviewed. Constitutional: General: She is not in acute distress. Appearance: Normal appearance. She is obese. HENT: Head: Normocephalic. Pulmonary: Effort: Pulmonary effort is normal. No respiratory distress. Neurological: Mental Status: She is alert. Mental status is at baseline. Comments: Wheelchair bound Psychiatric: Mood and Affect: Mood normal. Judgment: Judgment normal. Data Reviewed and Summarized Labs: Lab Results Component Value Date HGBA1C 6.3 (A) 09/22/2024 Lab Results Component Value Date CHOL 130 06/10/2024 Lab Results Component Value Date TRIG 130 06/10/2024 Lab Results Component Value Date HDL 40 (A) 06/10/2024 Lab Results Component Value Date LDLCALC 64 06/10/2024 Lab Results Component Value Date EGFR >90.0 11/19/2023 No results found for: MICROALBCREA, ALBUMINCREAT Lab Results Component Value Date TSH 1.36 06/10/2024 No results found for: [id number] Electronically signed by BARBARA Martinez CNP Portions of the information within this encounter were entered using an electronic dictation system. Best attempts were made to edit/proofread the information prior to note completion. Despite the review of information, some errors may remain. If there are questions related to the information contained within the note please contact the signing physician directly. documented in this encounter [facility] [employer] 09-22-2024 Instructions BARBARA Cohen CNP - 09/22/2024 8:00 AM EDT *Please arrive 15 minutes prior to your scheduled appointment to ensure we have adequate time together at each visit to address all your health needs *It is recommended that you schedule your follow up appointments well in advance as the schedule fills up quickly *Bring your glucometer, blood sugar logs or CGM if being seen for diabetic care to ensure your trends can be thoroughly evaluated *Ordered labs should be done at least a week prior to your next scheduled appointment, fasting unless instructed otherwise *Due to possible lab interference, please hold any biotin-containing supplements including multivitamins or other over the counter supplements for at least 5 days prior to your labs being done. *Should you have any questions or concerns regarding your plan of shoaib, please send me a message via [employer] or call [phone] so we can address your needs *Please notify at appointments of any refill needs. Should you require refills prior to your next appointment, please notify the office at least a week prior to your last dose to allow adequate time for review and authorization if required. To Do List: Try Metamucil over the counter Fasting labs in 3 months Message/call in 2 weeks with update on Constipation symptoms/download - Test your blood sugar 4 times daily via glucometer (or by continuous glucose monitor) and send message/readings to office in 2 weeks for review. Sooner if issues arise. - Your A1c goal is 7% or less - Work on lifestyle modifications of diet and exercise to assist with improving diabetic control - Check your feet daily for optimal foot care- follow with podiatry if needed - Continue following with ophthalmology every year for your dilated eye exam - Please take your medication as prescribed. If you encounter issues with side effects, glucose control, or cost please let me know - Uncontrolled diabetes has effects on multiple organ systems. Keeping your trends at goal and with limited variability will help to reduce your risk for future complications such as heart disease, chronic kidney disease, nerve damage (neuropathy), and other problems with your feet, oral health, vision, hearing, and mental health. - Be mindful of symptoms of both hypoglycemia (<70) and hyperglycemia (>250) and notify me if you are seeing trends outside these parameters consistently so we can adjust your plan of care. documented in this encounter [facility] 09-14-2024 Telephone encounter Note Left voicemail relaying the message from Saul. [facility] 09-14-2024 Miscellaneous Notes Left voicemail relaying the message from Saul. 1 year supply sent 4 days ago Please make pt aware she needs to request from pharmacy not our office documented in this encounter [facility] 09-14-2024 Telephone encounter Note 1 year supply sent 4 days ago Please make pt aware she needs to request from pharmacy not our office [facility] 06-18-2024 History of Present illness Narrative Images from the original note were not included. [facility] [address] [place] [address] Dept: [phone] Dept Loc: [phone] Visit type: Established Patient Reason for Visit: Diabetes Assessment and Plan 1. Type 2 diabetes mellitus with hyperglycemia, with long-term current use of insulin (HCC) - Tirzepatide (Mounjaro) 5 MG/0.5ML solution auto-injector; Inject 5 mg under the skin 1 (one) time per week., Starting Franny 06/18/2024, Until Sat06/18/2025, Normal - rosuvastatin (Crestor) 5 MG tablet; Take 1 tablet (5 mg) by mouth Nightly., Starting Franny 06/18/2024, Until Sat06/18/2025, Normal - Continuous Glucose Sensor (Dexcom G7 Sensor) misc; Use every 10 days, Normal - Basaglar KwikPen 100 UNIT/ML pen; Inject 12 Units under the skin every morning., Starting Franny 06/18/2024, Until Sat06/18/2025, Normal 2. Hypertension associated with type 2 diabetes mellitus (HCC) 3. Class 2 severe obesity with serious comorbidity and body mass index (BMI) of 37.0 to 37.9 in adult, unspecified obesity type (HCC) Lab Results Component Value Date HGBA1C 6.2 (A) 06/10/2024 HGBA1C 9.5 (A) 01/14/2024 HGBA1C 10.4 (H) 11/19/2023 Lab Results Component Value Date EGFR >90.0 11/19/2023 TSH 1.36 06/10/2024 TRIG 130 06/10/2024 LDLCALC 64 06/10/2024 DM2 Diabetes is: improving Glycemic Target: 7% Recommendations: Basaglar 16 units QAM--> 12 units QAM Ozempic 2mg weekly--> Mounjaro 5mg weekly *Taper insulin as able with Mounjaro optimization -Hypo: glucagon on hand -Meter/Supplies: on hand --> Labs to be done fasting prior to next visit; discussed holding supplements 5 days prior. UTD; POC A1c NOV --> BG monitoring: DD ~4 weeks; message/call for the same --> Statin: 06/2024: LDL 64; start rosuvastatin 5mg daily for risk reduction --> Talk to PCP about potassium replacement/adjustment Education: - Notification Parameters - ASCVD risk; indications for statin HTN PCP Managed Lozol BP stable --> Continue current therapy Obesity Body mass index is 37.06 kg/m . Wt Readings from Last 3 Encounters: 06/18/24 183 lb 8 oz (83.2 kg) 03/18/24 183 lb 4.8 oz (83.1 kg) 01/14/24 182 lb 14.4 oz (83 kg) --> Continue to work on lifestyle changes: dietary habits; increasing activity as able, weight reduction --> Optimize DM agents to aid w/ the same. [] Records from outside facility/PCP office to be requested. [x] Scripts sent to pharmacy of choice. No follow-ups on file. Diagnostic Data Reviewed Today: CGM AGP Reviewed: Yes Subjective HPI PCP: Ion Williamson DO DSME: 01/14/2024-Johnna; general ed Since RANDY: RANDY 03/2024 w/ me Labs noted in Media from June 2024 No SE w/ Ozempic Hospitalizations/Surgeries: Denies Medication Cost Concerns: Denies Missed Medication Doses: Denies Medication Side Effect: Denies Recent Steroid use: Denies Recent Weight Changes: Denies-183; wt stable Exercise Patterns: ADLs. Wheelchair-bound. Dietary Patterns: T[place]. Has seen dietitian in the past. Working on better choices, higher protein Employment/Lifestyle Patterns/Schedule Alterations: Works at [employer]. 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 History of Type 2 Diabetes Age at Onset: 56 yo Circumstances surrounding dx: polyuria--> screening Previous hospitalizations for DM: Endorses-11/2023 hyperglycemia s/p BL salpingoophorectomy Family hx DM: Endorses-Maternal Grandmother Family hx thyroid disease/thyroid cancer: Denies Current Medication Regimen: Basaglar 16 units QAM Ozempic 2mg weekly Previously Used DM Agents: Metformin: diarrhea Glimepiride: DC by IP service Novolog: DC 01/2024 re: improved trends; DC again 03/18/2024 OV Injection Sites/Rotation: rotates; has help administering from friend; pt self admin at work legs OTC Supplement Usage: Endorses-vitamin C intermittently Glucose Monitoring CGM use: Yes-Dexcom G7 w/ phone BG Monitoring: one touch verio on hand Recent Hypoglycemia: Few related to missed meals Hypoglycemic Treatment Plan: glucagon and glucose tabs BG Trends: TIR 82%; no low reoccurrence Trend Review: Complication History Retinopathy: Denies - Last Dilated Eye Exam: scheduled 04/10/24; Dr Ornelas ([facility]) Neuropathy: Denies - Last DMFE: 01/14/2024. Community Service Representative: ALISSON HTN: Endorses HLD: Denies- statin started 06/18/2024 for risk reduction Renal: Denies Cardiac: Denies CVA: Endorses-1x as child JAZMINE: Denies Gastroparesis: Denies H/o Pancreatitis: Denies Impaired Wound Healing: Denies Amputation: Denies Metabolic Dysfunction Associated Steatotic Liver Disease: Endorses Hypoglycemic Unawareness: Denies Cerebral Palsy Review of Systems ROS was performed at the time of this encounter. Unless noted above in the HPI, the ROS is negative. Allergies Allergen Reactions Amoxicillin Other Reaction(s): GI Upset, Nausea Other Reaction(s): Nausea Outpatient Medications Prior to Visit Medication Sig Dispense Refill acetaminophen (Tylenol) 325 MG suppository Insert into the rectum. albuterol 108 (90 Base) MCG/ACT inhaler Inhale 2 puffs every 6 hours as needed for wheezing. Alcohol Swabs pads Use as directed 4 times daily 400 each 11 Ascorbic Acid (vitamin C) 100 MG tablet Take 100 mg by mouth as needed. diazePAM (Valium) 5 MG tablet TAKE 1 TABLET BY MOUTH ONCE DAILY ONE HOUR BEFORE MEDICAL PROCEDURES. MUST LAST 90 DAYS OR LONGER. glucagon (Baqsimi Two Pack) 3 MG/DOSE nasal powder Administer 3 mg into affected nostril(s) Once as needed for low blood sugar. 2 each 3 glucose 4 g chewable tablet Chew 4 tablets (16 g) Daily as needed for low blood sugar. 50 tablet 3 indapamide (Lozol) 2.5 MG tablet daily. insulin pen needle 32G x 4 mm misc 4 times daily 100 each 11 Lancets (OneTouch Delica Plus [id number]) misc 1 each as needed for CGM failure 4 times daily 400 each 11 ondansetron (Zofran) 4 MG tablet Take by mouth. PRN OneTouch Verio test strip Use as instructed for CGM failure QID 400 each 11 potassium chloride CR (Klor-Con M20) 20 MEQ ER tablet Take 20 mEq by mouth daily. Take with food. Basaglar KwikPen 100 UNIT/ML pen Inject 16 Units under the skin every morning. 14.4 mL 3 Continuous Glucose Sensor (Dexcom G7 Sensor) misc Use every 10 days 9 each 5 Potassium Chloride (KLOR-CON PO) Take 20 mEq by mouth daily. Semaglutide, 2 MG/DOSE, (Ozempic, 2 MG/DOSE,) 8 MG/3ML solution pen-injector Inject 2 mg under the skin 1 (one) time per week. 9 mL 3 apixaban (Eliquis) 2.5 MG tablet Take 1 tablet (2.5 mg) by mouth 2 times daily for 28 days. 56 tablet 0 No facility-administered medications prior to visit. 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 Social History Tobacco Use Smoking status: Never Smokeless tobacco: Never Substance Use Topics Alcohol use: Yes Comment: 1-2 drinks per month Past Surgical History: Procedure Laterality Date ACHILLES TENDON SURGERY Bilateral BACK SURGERY BX OF BREAST, NEEDLE CORE, IMAGE GUIDE (HISTORICAL) Right 02/28/2021 benign DILATION AND CURETTAGE OF UTERUS 09/2023 attempted OTHER SURGICAL HISTORY Bilateral hamstring surgery ROTATOR CUFF REPAIR Right 2014 THUMB SURGERY (HISTORICAL) TOTAL HIP ARTHROPLASTY Left Family History Problem Relation Name Age of Onset Breast cancer Mother Diabetes Maternal Grandmother Objective BP 111/69 Pulse 83 Ht 4' 11 (1.499 m) Wt 183 lb 8 oz (83.2 kg) LMP 11/19/2023 (Exact Date) Comment: random bleeding BMI 37.06 kg/m Physical Exam Data Reviewed and Summarized Labs: Lab Results Component Value Date HGBA1C 6.2 (A) 06/10/2024 Lab Results Component Value Date CHOL 130 06/10/2024 Lab Results Component Value Date TRIG 130 06/10/2024 Lab Results Component Value Date HDL 40 (A) 06/10/2024 Lab Results Component Value Date LDLCALC 64 06/10/2024 Lab Results Component Value Date EGFR >90.0 11/19/2023 No results found for: MICROALBCREA, ALBUMINCREAT Lab Results Component Value Date TSH 1.36 06/10/2024 No results found for: [id number] Electronically signed by BARBARA Martinez CNP Portions of the information within this encounter were entered using an electronic dictation system. Best attempts were made to edit/proofread the information prior to note completion. Despite the review of information, some errors may remain. If there are questions related to the information contained within the note please contact the signing physician directly. Result entered documented in this encounter [facility] 06-18-2024 Instructions BARBARA Cohen CNP - 06/18/2024 11:30 AM EDT *Please arrive 15 minutes prior to your scheduled appointment to ensure we have adequate time together at each visit to address all your health needs *It is recommended that you schedule your follow up appointments well in advance as the schedule fills up quickly *Bring your glucometer, blood sugar logs or CGM if being seen for diabetic care to ensure your trends can be thoroughly evaluated *Ordered labs should be done at least a week prior to your next scheduled appointment, fasting unless instructed otherwise *Due to possible lab interference, please hold any biotin-containing supplements including multivitamins or other over the counter supplements for at least 5 days prior to your labs being done. *Should you have any questions or concerns regarding your plan of shoaib, please send me a message via [employer] or call [phone] so we can address your needs *Please notify at appointments of any refill needs. Should you require refills prior to your next appointment, please notify the office at least a week prior to your last dose to allow adequate time for review and authorization if required. To Do List: 3 weeks after start Mounjaro; message me for dexcom download Start rosuvastatin once daily Talk to PCP about potassium Bring medication bottles to next visit - Your A1c goal is 7% - Work on lifestyle modifications of diet and exercise to assist with improving diabetic control - Check your feet daily for optimal foot care- follow with podiatry if needed - Continue following with ophthalmology every year for your dilated eye exam - Please take your medication as prescribed. If you encounter issues with side effects, glucose control, or cost please let me know - Uncontrolled diabetes has effects on multiple organ systems. Keeping your trends at goal and with limited variability will help to reduce your risk for future complications such as heart disease, chronic kidney disease, nerve damage (neuropathy), and other problems with your feet, oral health, vision, hearing, and mental health. - Be mindful of symptoms of both hypoglycemia (<70) and hyperglycemia (>250) and notify me if you are seeing trends outside these parameters consistently so we can adjust your plan of care. documented in this encounter [facility] 06-18-2024 Miscellaneous Notes Addended by: SAUL ARMIJO on: 06/18/2024 12:10 PM Modules accepted: Orders documented in this encounter [facility] 06-18-2024 Note Addended by: SAUL ARMIJO on: 06/18/2024 12:10 PM Modules accepted: Orders [facility] 06-18-2024 Note Addended by: SAUL ARMIJO on: 06/18/2024 12:10 PM Modules accepted: Orders [facility] 06-18-2024 Note Addended by: SAUL ARMIJO on: 06/18/2024 12:10 PM Modules accepted: Orders [facility] 06-18-2024 Telephone encounter Note Pt arrived late to appt will still need assessed please [facility] 06-18-2024 Miscellaneous Notes Pt arrived late to appt will still need assessed please documented in this encounter [facility] 06-18-2024 Telephone encounter Note Name of Caller: Taylor Contact Reason for Appointment: Pt has an appt at 8 am and is stuck in traffic. Pt stated she should be there right around 8. Please advise Office Name: endo Medication Refills need, if any: na Medication Name: na [facility] 06-18-2024 Miscellaneous Notes Name of Caller: Taylor Contact Reason for Appointment: Pt has an appt at 8 am and is stuck in traffic. Pt stated she should be there right around 8. Please advise Office Name: endo Medication Refills need, if any: na Medication Name: na documented in this encounter [facility] 06-10-2024 Telephone encounter Note Per Saul's note, patient is due for fasting labs prior to next visit. I do not see where she is to hold her insulin. I do see where she is supposed to hold any [id number] supplements she may be on 5 days prior to her labs as this can lead to some of the results. [facility] [employer] Work Phone: 06-10-2024 Miscellaneous Notes Per Saul's note, patient is due for fasting labs prior to next visit. I do not see where she is to hold her insulin. I do see where she is supposed to hold any [id number]-[id number] supplements she may be on 5 days prior to her labs as this can lead to some of the results. Name of caller: Taylor Contact phone number: [phone] Relationship to Patient: patient Provider: Demetriec Armijo Practice: Endocrinology Chief Complaint/Reason for Call: Taylor called advising is she should stop taking her insulin before doing her labs. Patient advised she would like more clarifications when doing her labs. Please call patient back and advise. Best time of day caller can be reached: Patient advised that office/PCP has 24-48 business hours to return their call: Yes documented in this encounter [facility] [employer] 06-09-2024 Telephone encounter Note Name of caller: Taylor Contact phone number: [phone] Relationship to Patient: patient Provider: Demetrice Armijo Practice: Endocrinology Chief Complaint/Reason for Call: Taylor called advising is she should stop taking her insulin before doing her labs. Patient advised she would like more clarifications when doing her labs. Please call patient back and advise. Best time of day caller can be reached: Patient advised that office/PCP has 24-48 business hours to return their call: Yes [facility] 05-07-2024 Telephone encounter Note Dexcom downloaded to social media community manager [facility] [employer] 05-07-2024 Miscellaneous Notes Dexcom downloaded to social media community manager Please download dexcom Patient called to request another download from her Dexcom. Please advise. Called and released msg to pt. Basaglar to 16 units Message/call DD 2 weeks Dexcom downloaded and saved in Material Handler Floorperson Please download dexcom and sent it to provider Name of caller: Taylor Contact phone number: [phone] Relationship to Patient: patient Provider: BARBARA Cohen CNP Practice: [facility] Chief Complaint/Reason for Call: Taylor is requesting a call back to discuss her most recent Dexcom report. Please contact Taylor and advise. Best time of day caller can be reached: Any Patient advised that office/PCP has 24-48 business hours to return their call: Yes documented in this encounter [facility] [employer] 05-07-2024 Telephone encounter Note Please download dexcom [facility] [employer] 05-07-2024 Telephone encounter Note Patient called to request another download from her Dexcom. Please advise. [facility] 04-23-2024 Telephone encounter Note Called and released msg to pt. [facility] 04-23-2024 Telephone encounter Note Basaglar to 16 units Message/call DD 2 weeks [facility] 04-22-2024 Telephone encounter Note Dexcom downloaded and saved in Material Handler Floorperson [facility] 04-22-2024 Telephone encounter Note Please download dexcom and sent it to provider [facility] 04-21-2024 Telephone encounter Note Name of caller: Taylor Contact phone number: [phone] Relationship to Patient: patient Provider: BARBARA Cohen CNP Practice: [facility] Chief Complaint/Reason for Call: Taylor is requesting a call back to discuss her most recent Dexcom report. Please contact Taylor and advise. Best time of day caller can be reached: Any Patient advised that office/PCP has 24-48 business hours to return their call: Yes [facility] 03-18-2024 History of Present illness Narrative Images from the original note were not included. [facility] [address] [place] [address] Dept: [phone] Dept Loc: [phone] Visit type: Established Patient Reason for Visit: Diabetes Mellitus Assessment and Plan 1. Type 2 diabetes mellitus with hyperglycemia, with long-term current use of insulin (HCC) - Basaglar KwikPen 100 UNIT/ML pen; Inject 24 Units under the skin every morning., Starting Sat03/18/2024, Until Franny 03/18/2025, Normal - Semaglutide, 2 MG/DOSE, (Ozempic, 2 MG/DOSE,) 8 MG/3ML solution pen-injector; Inject 2 mg under the skin 1 (one) time per week., Starting Sat03/18/2024, Normal 2. Essential (primary) hypertension 3. Class 2 severe obesity with serious comorbidity and body mass index (BMI) of 37.0 to 37.9 in adult, unspecified obesity type (HCC) Lab Results Component Value Date HGBA1C 9.5 (A) 01/14/2024 HGBA1C 10.4 (H) 11/19/2023 Lab Results Component Value Date EGFR >90.0 11/19/2023 DM2 Diabetes is: worsening Glycemic Target: 7% Recommendations: Basaglar 24 units QAM; continue; taper as able Novolog 6 units tidac- self restarted--> DC Ozempic 1mg weekly--> 2mg weekly -Hypo: glucagon on hand -Meter/Supplies: on hand --> Labs to be done fasting prior to next visit; discussed holding supplements 5 days prior. As ordered in January --> BG monitoring: DD 3-4 weeks; message/call for the same --> Statin: defer until lipid screened Education: - Notification Parameters -Importance of not self adjusting medications. Communication between visits with concerns regarding plan of care HTN PCP Managed Lozol BP stable --> Continue current therapy Obesity Body mass index is 37.02 kg/m . Wt Readings from Last 3 Encounters: 03/18/24 183 lb 4.8 oz (83.1 kg) 01/14/24 182 lb 14.4 oz (83 kg) 11/19/23 192 lb 9.6 oz (87.4 kg) --> Continue to work on lifestyle changes: dietary habits; increasing activity as able, weight reduction --> Optimize DM agents to aid w/ the same. [] Records from outside facility/PCP office to be requested. [x] Scripts sent to pharmacy of choice. No follow-ups on file. Diagnostic Data Reviewed Today: CGM AGP Reviewed: Yes Subjective HPI PCP: Ion Williamson DO DSME: 01/14/2024-Johnna; general ed Since RANDY: Self adjusting insulin Self restarted Novolog Taking higher doses of Basaglar at times Doing well with Ozempic. No side effects Hospitalizations/Surgeries: Denies Medication Cost Concerns: Denies Missed Medication Doses: Denies Medication Side Effect: Denies Recent Steroid use: Denies Recent Weight Changes: Denies- 183 today Exercise Patterns: ADLs. Wheelchair-bound. Dietary Patterns: Tidac. Has seen dietitian in the past. Working on better choices, higher protein Employment/Lifestyle Patterns/Schedule Alterations: Works at [employer]. 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 History of Type 2 Diabetes Age at Onset: 56 yo Circumstances surrounding dx: polyuria--> screening Previous hospitalizations for DM: Endorses-11/2023 hyperglycemia s/p BL salpingoophorectomy Family hx DM: Endorses-Maternal Grandmother Family hx thyroid disease/thyroid cancer: Denies Current Medication Regimen: Basaglar 24 units QAM Novolog 6 units tidac- self restarted Ozempic 1mg weekly Previously Used DM Agents: Metformin: diarrhea Glimepiride: DC by IP service Novolog: DC 01/2024 re: improved trends; DC again 03/18/2024 OV Injection Sites/Rotation: rotates; has help administering from friend; pt self admin at work legs OTC Supplement Usage: Endorses-vitamin C intermittently Glucose Monitoring CGM use: Yes-Dexcom G7 w/ phone BG Monitoring: one touch verio on hand Recent Hypoglycemia: Few; educated prior on confirmation fingersticks. Hypoglycemic Treatment Plan: glucagon and glucose tabs BG Trends: TIR 93%; no lows on this download Trend Review: Complication History Retinopathy: Denies - Last Dilated Eye Exam: scheduled 04/10/24; Dr Ornelas ([facility]) Neuropathy: Denies - Last DMFE: 01/14/2024. Community Service Representative: NA HTN: Endorses HLD: Denies Renal: Denies Cardiac: Denies CVA: Endorses-1x as child JAZMINE: Denies Gastroparesis: Denies H/o Pancreatitis: Denies Impaired Wound Healing: Denies Amputation: Denies Metabolic Dysfunction Associated Steatotic Liver Disease: Endorses Hypoglycemic Unawareness: Denies Cerebral Palsy Review of Systems ROS was performed at the time of this encounter. Unless noted above in the HPI, the ROS is negative. Allergies Allergen Reactions Amoxicillin Other Reaction(s): GI Upset, Nausea Other Reaction(s): Nausea Outpatient Medications Prior to Visit Medication Sig Dispense Refill acetaminophen (Tylenol) 325 MG suppository Insert into the rectum. albuterol 108 (90 Base) MCG/ACT inhaler Inhale 2 puffs every 6 hours as needed for wheezing. Alcohol Swabs pads Use as directed 4 times daily 400 each 11 Ascorbic Acid (vitamin C) 100 MG tablet Take 100 mg by mouth as needed. Continuous Glucose Sensor (High Brew Coffee G7 Sensor) misc Use every 10 days 9 each 5 diazePAM (Valium) 5 MG tablet TAKE 1 TABLET BY MOUTH ONCE DAILY ONE HOUR BEFORE MEDICAL PROCEDURES. MUST LAST 90 DAYS OR LONGER. glucagon (Baqsimi Two Pack) 3 MG/DOSE nasal powder Administer 3 mg into affected nostril(s) Once as needed for low blood sugar. 2 each 3 glucose 4 g chewable tablet Chew 4 tablets (16 g) Daily as needed for low blood sugar. 50 tablet 3 indapamide (Lozol) 2.5 MG tablet daily. insulin pen needle 32G x 4 mm misc 4 times daily 100 each 11 Lancets (OneTouch Delica Plus [id number]) misc 1 each as needed for CGM failure 4 times daily 400 each 11 ondansetron (Zofran) 4 MG tablet Take by mouth. PRN OneTouch Verio test strip Use as instructed for CGM failure QID 400 each 11 Potassium Chloride (KLOR-CON PO) Take 20 mEq by mouth daily. potassium chloride CR (Klor-Con M20) 20 MEQ ER tablet Take 20 mEq by mouth daily. Take with food. Basaglar KwikPen 100 UNIT/ML pen Inject 20 Units under the skin every morning. (Patient taking differently: Inject 24 Units under the skin every morning.) 21.6 mL 3 semaglutide (Ozempic, 1 MG/DOSE,) 4 MG/3ML solution pen-injector Inject 1 mg under the skin 1 (one) time per week. 9 mL 3 apixaban (Eliquis) 2.5 MG tablet Take 1 tablet (2.5 mg) by mouth 2 times daily for 28 days. 56 tablet 0 Insulin Aspart (NovoLOG) 100 UNIT/ML solution Inject 6 Units as directed 3 times daily. No facility-administered medications prior to visit. 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 Social History Tobacco Use Smoking status: Never Smokeless tobacco: Never Substance Use Topics Alcohol use: Yes Comment: 1-2 drinks per month Past Surgical History: Procedure Laterality Date ACHILLES TENDON SURGERY Bilateral BACK SURGERY BX OF BREAST, NEEDLE CORE, IMAGE GUIDE (HISTORICAL) Right 02/28/2021 benign DILATION AND CURETTAGE OF UTERUS 09/2023 attempted OTHER SURGICAL HISTORY Bilateral hamstring surgery ROTATOR CUFF REPAIR Right 2014 THUMB SURGERY (HISTORICAL) TOTAL HIP ARTHROPLASTY Left Family History Problem Relation Name Age of Onset Breast cancer Mother Diabetes Maternal Grandmother Objective BP 113/72 (BP Location: Left arm, Patient Position: Sitting, BP Cuff Size: Adult) Pulse 87 Ht 4' 11 (1.499 m) Wt 183 lb 4.8 oz (83.1 kg) LMP 11/19/2023 (Exact Date) Comment: random bleeding BMI 37.02 kg/m Physical Exam Vitals reviewed. Constitutional: General: She is not in acute distress. Appearance: Normal appearance. She is obese. HENT: Head: Normocephalic. Pulmonary: Effort: Pulmonary effort is normal. No respiratory distress. Neurological: Mental Status: She is alert. Mental status is at baseline. Comments: Wheelchair-bound Psychiatric: Mood and Affect: Mood normal. Judgment: Judgment normal. Data Reviewed and Summarized Labs: Lab Results Component Value Date HGBA1C 9.5 (A) 01/14/2024 No results found for: CHLPL, CHOL, CHOLESTEROLT No results found for: TRIG, TRIGLYCERIDE No results found for: HDL, HDLCHOLESTER No results found for: LDL, LDLCALC, LDLCHOLESTER Lab Results Component Value Date EGFR >90.0 11/19/2023 No results found for: MICROALBCREA, ALBUMINCREAT No results found for: TSH No results found for: [id number] Electronically signed by BARBARA Martinez CNP Portions of the information within this encounter were entered using an electronic dictation system. Best attempts were made to edit/proofread the information prior to note completion. Despite the review of information, some errors may remain. If there are questions related to the information contained within the note please contact the signing physician directly. documented in this encounter [facility] 03-18-2024 Instructions BARBARA Cohen CNP - 03/18/2024 10:30 AM EST *Please arrive 15 minutes prior to your scheduled appointment to ensure we have adequate time together at each visit to address all your health needs *It is recommended that you schedule your follow up appointments well in advance as the schedule fills up quickly *Bring your glucometer, blood sugar logs or CGM if being seen for diabetic care to ensure your trends can be thoroughly evaluated *Ordered labs should be done at least a week prior to your next scheduled appointment, fasting unless instructed otherwise *Due to possible lab interference, please hold any biotin-containing supplements including multivitamins or other over the counter supplements for at least 5 days prior to your labs being done. *Should you have any questions or concerns regarding your plan of shoaib, please send me a message via [employer] or call [phone] so we can address your needs *Please notify at appointments of any refill needs. Should you require refills prior to your next appointment, please notify the office at least a week prior to your last dose to allow adequate time for review and authorization if required. To Do List: STOP NOVOLOG Do labs prior to next office visit; fasting Keep scheduled Eye Exam Have Eye doctor send copy of eye exam - Test your blood sugar 4 times daily via glucometer (or by continuous glucose monitor) and send message/readings to office in 3-4 weeks for review. Sooner if issues arise. - Your A1c goal is 7% - Work on lifestyle modifications of diet and exercise to assist with improving diabetic control - Check your feet daily for optimal foot care- follow with podiatry if needed - Continue following with ophthalmology every year for your dilated eye exam - Please take your medication as prescribed. If you encounter issues with side effects, glucose control, or cost please let me know - Uncontrolled diabetes has effects on multiple organ systems. Keeping your trends at goal and with limited variability will help to reduce your risk for future complications such as heart disease, chronic kidney disease, nerve damage (neuropathy), and other problems with your feet, oral health, vision, hearing, and mental health. - Be mindful of symptoms of both hypoglycemia (<70) and hyperglycemia (>250) and notify me if you are seeing trends outside these parameters consistently so we can adjust your plan of care. documented in this encounter [facility] 02-27-2024 Telephone encounter Note Message released to patient as written. Patient's further questions if applicable: N/A Were all questions from office addressed or relayed to the patient from encounter: Yes [facility] 02-27-2024 Miscellaneous Notes Message released to patient as written. Patient's further questions if applicable: N/A Were all questions from office addressed or relayed to the patient from encounter: Yes LVM for patient to call the office. if patient return call please relay message per provider. Images from the original note were not included. No significant hyperglycemia on DD Recommend again she follow orders given then message for DD in 1-2 weeks If trends >250 notify sooner but none seen on 1 week adjusted download Name of caller: Taylor Contact phone number: [phone] Relationship to Patient: patient Provider: Aleksander FOFANA Practice: Endo Chief Complaint/Reason for Call: Taylor states that since you took her off the NOVOLOG last Saturday her numbers had started spiking up. So on Saturday she started back taking the NOVOLOG and her numbers came back down to what she's use too. Taylor is asking for you to look at her numbers and let her know what you think she should do moving forward. Best time of day caller can be reached: AM Patient advised that office/PCP has 24-48 business hours to return their call: Yes documented in this encounter [facility] 02-27-2024 Telephone encounter Note LVM for patient to call the office. if patient return call please relay message per provider. [facility] 02-27-2024 Telephone encounter Note Images from the original note were not included. No significant hyperglycemia on DD Recommend again she follow orders given then message for DD in 1-2 weeks If trends >250 notify sooner but none seen on 1 week adjusted download [facility] 02-27-2024 Telephone encounter Note Name of caller: Taylor Contact phone number: [phone] Relationship to Patient: patient Provider: Aleksander FOFANA Practice: Endo Chief Complaint/Reason for Call: Taylor states that since you took her off the NOVOLOG last Saturday her numbers had started spiking up. So on Saturday she started back taking the NOVOLOG and her numbers came back down to what she's use too. Taylor is asking for you to look at her numbers and let her know what you think she should do moving forward. Best time of day caller can be reached: AM Patient advised that office/PCP has 24-48 business hours to return their call: Yes [facility] 02-21-2024 Telephone encounter Note Patient informed as noted No further questions. [facility] 02-21-2024 Miscellaneous Notes Patient informed as noted No further questions. Reviewed Time in range at goal Stop Novolog Decrease Basagalr to 20 units Remind about 1/8 appt; will pull DD again at that time Can notify sooner if needs review Dexcom DL in media Name of caller: Taylor Contact phone number: [phone] Relationship to Patient: Patient Provider: JANNY Armijo Practice: endo Chief Complaint/Reason for Call: Patient is requesting her blood glucose log be pulled. She also stated that she re-calibrated her dexcom. Please advise. Best time of day caller can be reached: Any Patient advised that office/PCP has 24-48 business hours to return their call: Yes documented in this encounter [facility] 02-21-2024 Telephone encounter Note Reviewed Time in range at goal Stop Novolog Decrease Basagalr to 20 units Remind about 1/8 appt; will pull DD again at that time Can notify sooner if needs review [facility] 02-21-2024 Telephone encounter Note Dexcom DL in media [facility] 02-20-2024 Telephone encounter Note Name of caller: Taylor Contact phone number: [phone] Relationship to Patient: Patient Provider: JANNY Armijo Practice: [facility] Chief Complaint/Reason for Call: Patient is requesting her blood glucose log be pulled. She also stated that she re-calibrated her dexcom. Please advise. Best time of day caller can be reached: Any Patient advised that office/PCP has 24-48 business hours to return their call: Yes [facility] 01-31-2024 Telephone encounter Note Rec'd PA request for Ozempic, called pharmacy, they stated it went through no charge but the Novolog cannot be filled until February 15, 2024 [facility] 01-31-2024 Miscellaneous Notes Rec'd PA request for Ozempic, called pharmacy, they stated it went through no charge but the Novolog cannot be filled until February 15, 2024 documented in this encounter [facility] 01-30-2024 Telephone encounter Note done [facility] 01-30-2024 Miscellaneous Notes done Pharmacy called and stated that Ozempic prescription should be corrected to a 4mg pen. Please advise. DD reviewed Trends improved greatly Increase Ozempic to 1mg weekly; once ozempic is increased can cut back Novolog to 6 units with meals; continue Basaglar Message/call again in 2 weeks to consider further decreasing insulin Name of caller: Taylor Contact phone number: [phone] Relationship to Patient: patient Provider: JANNY Armijo Practice: Endo Chief Complaint/Reason for Call: Patient calling to advise that it is time to pull her glucose log report. Please advise, Best time of day caller can be reached: Any Patient advised that office/PCP has 24-48 business hours to return their call: Yes documented in this encounter [facility] 01-30-2024 Telephone encounter Note Pharmacy called and stated that Ozempic prescription should be corrected to a 4mg pen. Please advise. [facility] 01-30-2024 Telephone encounter Note SHERI reviewed Trends improved greatly Increase Ozempic to 1mg weekly; once ozempic is increased can cut back Novolog to 6 units with meals; continue Basaglar Message/call again in 2 weeks to consider further decreasing insulin [facility] 01-30-2024 Telephone encounter Note Name of caller: Taylor Contact phone number: [phone] Relationship to Patient: patient Provider: JANNY Armijo Practice: Endo Chief Complaint/Reason for Call: Patient calling to advise that it is time to pull her glucose log report. Please advise, Best time of day caller can be reached: Any Patient advised that office/PCP has 24-48 business hours to return their call: Yes [facility] 01-14-2024 History of Present illness Narrative Images from the original note were not included. [facility] [address] [place] [address] Dept: Dept Loc: [phone] Visit type: Established Patient Reason for Visit: Diabetes Mellitus Assessment and Plan 1. Type 2 diabetes mellitus with hyperglycemia, with long-term current use of insulin (HCC) - AMB POC HEMOGLOBIN A1C - OneTouch Verio test strip; Use as instructed for CGM failure QID, Normal - glucose 4 g chewable tablet; Chew 4 tablets (16 g) Daily as needed for low blood sugar., Starting Sat01/14/2024, Until Sat01/13/2025 at 2359, Normal - glucagon (Gvoke HypoPen 2-Pack) 1 MG/0.2ML injection; Inject 0.2 mL (1 mg) under the skin Once as needed for low blood sugar for up to 8 doses., Starting Sat01/14/2024, Normal - Basaglar KwikPen 100 UNIT/ML pen; Inject 24 Units under the skin every morning., Starting Sat01/14/2024, Until Sat01/13/2025, Normal - insulin aspart (NovoLOG) 100 UNIT/ML pen; Inject 10 Units under the skin 3 times daily (with meals)., Starting Sat01/14/2024, Until Sat01/13/2025, Normal - insulin pen needle 32G x 4 mm misc; 4 times daily, Normal - Lancets (OneTouch Delica Plus [id number]) misc; 1 each as needed for CGM failure 4 times daily, Normal - Alcohol Swabs pads; Use as directed 4 times daily, Normal - Lipid panel - T4, free - Comprehensive metabolic panel - Hemoglobin A1c - TSH - Microalbumin / creatinine urine ratio - Diabetes Foot Exam 2. Essential (primary) hypertension - Comprehensive metabolic panel - Microalbumin / creatinine urine ratio 3. Obesity (BMI 30-39.9) - TSH Lab Results Component Value Date HGBA1C 9.5 (A) 01/14/2024 HGBA1C 10.4 (H) 11/19/2023 Lab Results Component Value Date EGFR >90.0 11/19/2023 DM2 Diabetes is: poorly controlled but improving Glycemic Target: 7% Recommendations: Basaglar 20 units QAM--> 24 QAM Novolog 8 units tidac--> 10 tidac Ozempic 0.5mg weekly; continue for 3 more weeks then consider optimizing -Hypo: glucagon sent -Meter/Supplies: on hand --> Labs to be done fasting prior to next visit; discussed holding supplements 5 days prior. 3 months --> BG monitoring: DD in 2 weeks --> Schedule HALEY --> Chart forwarded to DSME to follow up on teaching/behaviors --> Statin: defer until lipid scheduled Education: - Notification Parameters - Glucagon emergency use instructions given via AVS - Dexcom replacement protocol - Appropriate insulin admin sites HTN PCP Managed Lozol BP stable --> Continue current therapy Obesity Body mass index is 36.94 kg/m . Wt Readings from Last 3 Encounters: 01/14/24 182 lb 14.4 oz (83 kg) 11/19/23 192 lb 9.6 oz (87.4 kg) 10/18/23 202 lb (91.6 kg) --> Continue to work on lifestyle changes: dietary habits; increasing activity as able, weight reduction --> Optimize DM agents to aid w/ the same. [] Records from outside facility/PCP office to be requested. [x] Scripts sent to pharmacy of choice. No follow-ups on file. Diagnostic Data Reviewed Today: CGM AGP Reviewed: Yes Total time spent 40 minutes which included review of records, counseling, management, and coordination of care as documented above. Subjective HPI PCP: Ion Williamson DO DSME: 01/14/2024-Johnna; general ed Since RANDY: New to me Known to IP team from 11/2023 admit for hyperglycemia s/p BL salpingoophorectomy Medication Cost Concerns: Denies Missed Medication Doses: Denies Medication Side Effect: Denies Recent Steroid use: Denies Recent Weight Changes: Denies Exercise Patterns: Wheelchair bound Dietary Patterns: tidac; lots of juice Employment/Lifestyle Patterns/Schedule Alterations: Works at [employer] History of Type 2 Diabetes Age at Onset: 56 yo Circumstances surrounding dx: polyuria--> screening Previous hospitalizations for DM: Endorses-11/2023 hyperglycemia s/p BL salpingoophorectomy Family hx DM: Endorses-Maternal Grandmother Family hx thyroid disease/thyroid cancer: Denies Current Medication Regimen: Basaglar 20; ordered 24 QAM Novolog 8 units tidac Ozempic 0.5mg weekly Previously Used DM Agents: Metformin: diarrhea Glimepiride: DC by IP service Injection Sites/Rotation: rotates; has help administering; pt self admin at work in thigh muscles; educated on the same/appropriate admin sites OTC Supplement Usage: Endorses-vitamin C intermittently Glucose Monitoring CGM use: Yes-Dexcom G7 w/ phone BG Monitoring: one touch verio on hand Recent Hypoglycemia: Endorses- 70s yesterday Hypoglycemic Treatment Plan: glucagon sent BG Trends: persistently above goal Trend Review: Complication History Retinopathy: Denies - Last Dilated Eye Exam: Overdue; Dr Ornelas ([facility]) Neuropathy: Denies - Last DMFE: 01/14/2024. Community Service Representative: ALISSON HTN: Endorses HLD: Denies Renal: Denies Cardiac: Denies CVA: Endorses-1x as child JAZMINE: Denies Gastroparesis: Denies H/o Pancreatitis: Denies Impaired Wound Healing: Denies Amputation: Denies Metabolic Dysfunction Associated Steatotic Liver Disease: Endorses Hypoglycemic Unawareness: Denies Cerebral Palsy Review of Systems ROS was performed at the time of this encounter. Unless noted above in the HPI, the ROS is negative. Allergies Allergen Reactions Amoxicillin Other Reaction(s): GI Upset, Nausea Other Reaction(s): Nausea Outpatient Medications Prior to Visit Medication Sig Dispense Refill albuterol 108 (90 Base) MCG/ACT inhaler Inhale 2 puffs every 6 hours as needed for wheezing. Continuous Glucose Sensor (Dexcom G7 Sensor) misc Use every 10 days 9 each 5 diazePAM (Valium) 5 MG tablet TAKE 1 TABLET BY MOUTH ONCE DAILY ONE HOUR BEFORE MEDICAL PROCEDURES. MUST LAST 90 DAYS OR LONGER. indapamide (Lozol) 2.5 MG tablet daily. ondansetron (Zofran) 4 MG tablet Take by mouth. PRN Potassium Chloride (KLOR-CON PO) Take 20 mEq by mouth daily. potassium chloride CR (Klor-Con M20) 20 MEQ ER tablet Take 20 mEq by mouth daily. Take with food. semaglutide (Ozempic, 0.25 or 0.5 MG/DOSE,) 2 MG/3ML solution pen-injector 0.25 mg weekly for 4 weeks then increase to 0.5 mg weekly 3 mL 3 Basaglar KwikPen 100 UNIT/ML pen Inject 24 Units under the skin every morning. (Patient taking differently: Inject 20 Units under the skin every morning.) 21.6 mL 0 insulin aspart (NovoLOG) 100 UNIT/ML pen Inject 8 Units under the skin in the morning and 8 Units at noon and 8 Units in the evening. Inject with meals. 21.6 mL 0 insulin pen needle 32G x 4 mm misc 4 times daily 100 each 11 Lancets ([employer] Net TechnologiesTouch Delica Plus [id number]) misc USE TO CHECK SUGAR ONCE DAILY OneTouch Verio test strip USE 1 STRIP TO CHECK GLUCOSE ONCE DAILY acetaminophen (Tylenol) 325 MG suppository Insert into the rectum. (Patient not taking: Reported on 01/14/2024) apixaban (Eliquis) 2.5 MG tablet Take 1 tablet (2.5 mg) by mouth 2 times daily for 28 days. 56 tablet 0 Ascorbic Acid (vitamin C) 100 MG tablet Take 100 mg by mouth as needed. No facility-administered medications prior to visit. 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 Social History Tobacco Use Smoking status: Never Smokeless tobacco: Never Substance Use Topics Alcohol use: Yes Comment: 1-2 drinks per month Past Surgical History: Procedure Laterality Date ACHILLES TENDON SURGERY Bilateral BACK SURGERY BX OF BREAST, NEEDLE CORE, IMAGE GUIDE (HISTORICAL) Right 02/28/2021 benign DILATION AND CURETTAGE OF UTERUS 09/2023 attempted OTHER SURGICAL HISTORY Bilateral hamstring surgery ROTATOR CUFF REPAIR Right 2014 THUMB SURGERY (HISTORICAL) TOTAL HIP ARTHROPLASTY Left Family History Problem Relation Name Age of Onset Breast cancer Mother Diabetes Maternal Grandmother Objective BP 132/66 (BP Location: Right arm, Patient Position: Sitting, BP Cuff Size: Adult) Pulse 87 Ht 4' 11 (1.499 m) Wt 182 lb 14.4 oz (83 kg) LMP 11/19/2023 (Exact Date) Comment: random bleeding BMI 36.94 kg/m Physical Exam Constitutional: General: She is not in acute distress. Appearance: Normal appearance. She is obese. She is not ill-appearing. HENT: Head: Normocephalic. Neck: Thyroid: No thyromegaly or thyroid tenderness. Cardiovascular: Rate and Rhythm: Normal rate and regular rhythm. Pulmonary: Effort: Pulmonary effort is normal. No respiratory distress. Breath sounds: Normal breath sounds. Feet: Comments: DM Foot Examination: Monofilament Sensation: Normal Deformity: Absent Dorsalis Pedis Pulses: Present Calluses: Present Lesions: Absent Dry skin to LE Skin: General: Skin is warm and dry. Neurological: Mental Status: She is alert and oriented to person, place, and time. Comments: Wheelchair bound Psychiatric: Mood and Affect: Mood normal. Data Reviewed and Summarized Labs: Lab Results Component Value Date HGBA1C 9.5 (A) 01/14/2024 No results found for: CHLPL, CHOL, CHOLESTEROLT No results found for: TRIG, TRIGLYCERIDE No results found for: HDL, HDLCHOLESTER No results found for: LDL, LDLCALC, LDLCHOLESTER Lab Results Component Value Date EGFR >90.0 11/19/2023 No results found for: MICROALBCREA, ALBUMINCREAT No results found for: TSH No results found for: [id number] Electronically signed by BARBARA Martinez CNP Portions of the information within this encounter were entered using an electronic dictation system. Best attempts were made to edit/proofread the information prior to note completion. Despite the review of information, some errors may remain. If there are questions related to the information contained within the note please contact the signing physician directly. documented in this encounter [facility] 01-14-2024 Instructions BARBARA Cohen CNP - 01/14/2024 10:30 AM EST Images from the original note were not included. *Please arrive 15 minutes prior to your scheduled appointment to ensure we have adequate time together at each visit to address all your health needs *It is recommended that you schedule your follow up appointments well in advance as the schedule fills up quickly *Bring your glucometer, blood sugar logs or CGM if being seen for diabetic care to ensure your trends can be thoroughly evaluated *Ordered labs should be done at least a week prior to your next scheduled appointment, fasting unless instructed otherwise *Due to possible lab interference, please hold any biotin-containing supplements including multivitamins or other over the counter supplements for at least 5 days prior to your labs being done. *Should you have any questions or concerns regarding your plan of shoaib, please send me a message via [employer] or call [phone] so we can address your needs *Please notify at appointments of any refill needs. Should you require refills prior to your next appointment, please notify the office at least a week prior to your last dose to allow adequate time for review and authorization if required. To Do List: Schedule eye exam Novolog increased to 10 units with meals; if you do not eat do not take Basaglar increase to 24 units every morning Fasting labs in 3 months Continue Ozempic - Test your blood sugar 4 times daily via glucometer (or by continuous glucose monitor) and send message/readings to office in 2 weeks for review. Sooner if issues arise. - Your A1c goal is 7% - Work on lifestyle modifications of diet and exercise to assist with improving diabetic control - Check your feet daily for optimal foot care- follow with podiatry if needed - Continue following with ophthalmology every year for your dilated eye exam - Please take your medication as prescribed. If you encounter issues with side effects, glucose control, or cost please let me know - Uncontrolled diabetes has effects on multiple organ systems. Keeping your trends at goal and with limited variability will help to reduce your risk for future complications such as heart disease, chronic kidney disease, nerve damage (neuropathy), and other problems with your feet, oral health, vision, hearing, and mental health. - Be mindful of symptoms of both hypoglycemia (<70) and hyperglycemia (>250) and notify me if you are seeing trends outside these parameters consistently so we can adjust your plan of care. Gvoke Emergency Glucagon Gvoke HypoPen can be administered into the outer upper arm, lower abdomen, or outer thigh. Store in original sealed pouch until time of use. Know When To Use Gvoke HypoPen Severe low blood sugar requires immediate attention. Gvoke HypoPen should be used if you experience any of the following during a low blood sugar emergency Correcting with food or drink isn t working You are unable to swallow safely You feel like passing out You pass out or have a seizure documented in this encounter [facility] 01-14-2024 Miscellaneous Notes Addended by: SAUL ARMIJO on: 01/14/2024 03:45 PM Modules accepted: Orders documented in this encounter [facility] 01-14-2024 Note Addended by: SAUL ARMIJO on: 01/14/2024 03:45 PM Modules accepted: Orders [facility] 01-14-2024 Note Addended by: SAUL ARMIJO on: 01/14/2024 03:45 PM Modules accepted: Orders [facility] 01-14-2024 Note Addended by: SAUL ARMIJO on: 01/14/2024 03:45 PM Modules accepted: Orders [facility] 01-03-2024 Telephone encounter Note Spoke to patient and caregiver. Gave new orders as written. Caregiver wrote down new orders for patient. [facility] 01-03-2024 Miscellaneous Notes Spoke to patient and caregiver. Gave new orders as written. Caregiver wrote down new orders for patient. Addended by: SAUL ARMIJO on: 01/03/2024 10:53 AM Modules accepted: Orders Increase Ozempic as planned Increase Basaglar to 24 daily Start Humalog 8 with meals Message for DD 2 weeks Spoke to patient. Is taking the Basaglar 20 units in am and is taking the 0.25 Ozempic. Will start the 0.5 dose next week. Advised if any changes to meds will contact patient. Patient agreed will be at appt 01/13. Very poor control Insulin dosages/meds need confirmed as I have never seen the pt Per November IP note was to optimize ozempic 0.25-->0.5 and start Basaglar Please confirm timing/dosages Thank you Name of caller: Taylor Contact phone number: [phone] Relationship to Patient: patient Provider: Dr. Miner Practice: Endo Chief Complaint/Reason for Call: Pt states she is calling to let the office to download her recent readings. Please advise. Best time of day caller can be reached: any Patient advised that office/PCP has 24-48 business hours to return their call: N/A documented in this encounter [facility] 01-03-2024 Note Addended by: SAUL ARMIJO on: 01/03/2024 10:53 AM Modules accepted: Orders [facility] 01-03-2024 Note Addended by: SAUL ARMIJO on: 01/03/2024 10:53 AM Modules accepted: Orders [facility] 01-03-2024 Telephone encounter Note Increase Ozempic as planned Increase Basaglar to 24 daily Start Humalog 8 with meals Message for DD 2 weeks T [facility] 01-03-2024 Telephone encounter Note Spoke to patient. Is taking the Basaglar 20 units in am and is taking the 0.25 Ozempic. Will start the 0.5 dose next week. Advised if any changes to meds will contact patient. Patient agreed will be at appt 01/13. [facility] 01-02-2024 Telephone encounter Note Very poor control Insulin dosages/meds need confirmed as I have never seen the pt Per November IP note was to optimize ozempic 0.25-->0.5 and start Basaglar Please confirm timing/dosages Thank you [facility] 01-02-2024 Telephone encounter Note Name of caller: Taylor Contact phone number: [phone] Relationship to Patient: patient Provider: Dr. Miner Practice: Endo Chief Complaint/Reason for Call: Pt states she is calling to let the office to download her recent readings. Please advise. Best time of day caller can be reached: any Patient advised that office/PCP has 24-48 business hours to return their call: N/A [facility] 12-17-2023 Telephone encounter Note Pt called back with can get vaccines. Pt verbalized understanding. [facility] 12-17-2023 Miscellaneous Notes Pt called back with can get vaccines. Pt verbalized understanding. Patient would like to know when she could get her flu shot and covid vaccine in relation to her surgery. Patient also requested for her FMLA paperwork to be completed by the . With questions about either, please contact patient when able, thank you documented in this encounter [facility] 12-17-2023 Telephone encounter Note Patient would like to know when she could get her flu shot and covid vaccine in relation to her surgery. Patient also requested for her FMLA paperwork to be completed by the . With questions about either, please contact patient when able, thank you [facility] 12-16-2023 History of Present illness Narrative GYNECOLOGIC ONCOLOGY - FOLLOW-UP VISIT CHIEF COMPLAINT/PUPROSE OF VISIT: Taylor Wesley is a 58 y.o. female 2 weeks s/p TOTAL ABDOMINAL HYSTERECTOMY BILATERAL SALPINGO OOPHORECTOMY with Dr. Bruce. INTERVAL HISTORY: Overall doing well since surgery. Denies signifcant pain, bleeding. Tolerating regular diet, denies N/V. Denies issues with BM or urination. ECOG PS 0 Pathology: UTERUS WITH BILATERAL FALLOPIAN TUBES, BILATERAL OVARIES, AND ADHERENT OMENTUM, HYSTERECTOMY WITH BILATERAL SALPINGO-OOPHORECTOMY AND OMENTECTOMY: - UTERUS WITH WEAKLY PROLIFERATIVE ENDOMETRIUM AND CERVIX SHOWING CHRONIC CERVICITIS AND SQUAMOUS METAPLASIA - LEIOMYOMATA WITH CALCIFICATIONS AND FOCAL INFARCT-LIKE NECROSIS - BILATERAL UNREMARKABLE OVARIES - BILATERAL FALLOPIAN TUBES WITH MILD CHRONIC INFLAMMATION - UNREMARKABLE MATURE ADIPOSE TISSUE, CONSISTENT WITH OMENTUM ROS: 12 point review of systems performed, pertinent items are noted in HPI; all other review of systems were negative. MEDICATIONS: Current Outpatient Medications Medication Sig Dispense Refill potassium chloride CR (Klor-Con M20) 20 MEQ ER tablet Take 20 mEq by mouth daily. Take with food. acetaminophen (Tylenol) 325 MG suppository Insert into the rectum. (Patient not taking: Reported on 01/14/2024) albuterol 108 (90 Base) MCG/ACT inhaler Inhale 2 puffs every 6 hours as needed for wheezing. Alcohol Swabs pads Use as directed 4 times daily 400 each 11 apixaban (Eliquis) 2.5 MG tablet Take 1 tablet (2.5 mg) by mouth 2 times daily for 28 days. 56 tablet 0 Ascorbic Acid (vitamin C) 100 MG tablet Take 100 mg by mouth as needed. Basaglar KwikPen 100 UNIT/ML pen Inject 24 Units under the skin every morning. 21.6 mL 3 Continuous Glucose Sensor (Dexcom G7 Sensor) misc Use every 10 days 9 each 5 diazePAM (Valium) 5 MG tablet TAKE 1 TABLET BY MOUTH ONCE DAILY ONE HOUR BEFORE MEDICAL PROCEDURES. MUST LAST 90 DAYS OR LONGER. glucagon (Baqsimi Two Pack) 3 MG/DOSE nasal powder Administer 3 mg into affected nostril(s) Once as needed for low blood sugar. 2 each 3 glucose 4 g chewable tablet Chew 4 tablets (16 g) Daily as needed for low blood sugar. 50 tablet 3 indapamide (Lozol) 2.5 MG tablet daily. insulin aspart (NovoLOG) 100 UNIT/ML pen Inject 10 Units under the skin 3 times daily (with meals). 21.6 mL 3 insulin pen needle 32G x 4 mm misc 4 times daily 100 each 11 Lancets (OneTouch Delica Plus [id number]) misc 1 each as needed for CGM failure 4 times daily 400 each 11 ondansetron (Zofran) 4 MG tablet Take by mouth. PRN OneTouch Verio test strip Use as instructed for CGM failure QID 400 each 11 Potassium Chloride (KLOR-CON PO) Take 20 mEq by mouth daily. semaglutide (Ozempic, 0.25 or 0.5 MG/DOSE,) 2 MG/3ML solution pen-injector 0.25 mg weekly for 4 weeks then increase to 0.5 mg weekly 3 mL 3 No current facility-administered medications for this visit. VITAL SIGNS: Blood pressure 137/78, pulse 91, last menstrual period 11/19/2023. No data recorded PHYSICAL EXAM: General: Alert and oriented. in no acute distress. Able to ambulate on and off the exam table without difficulty. Heart: Regular rate Lungs: Easy respirations Abdomen: Soft, Non-tender, non-distended. Skin: No significant rashes, petechia or purpura. Well healing surgical incision without erythema, induration, or drainage. Extremities: No cyanosis, clubbing, or edema Mental: Mood and affect appropriate for situation Pelvis: Def DIAGNOSTICS: I reviewed the imaging studies and agree with the interpretation as recorded. I reviewed the pertinent laboratory and diagnostic data. ASSESSMENT/PLAN: - Doing well post-op - Reviewed final pathology, benign - Continue restrictions until 6 weeks postoperatively - Follow-up with primary [facility] [employer] for annual well woman exams. I explained diagnosis and treatment plan; patient expressed understanding and was in agreement with the plan. BARBARA Eisenberg CNP documented in this encounter [facility] 12-05-2023 Telephone encounter Note Patient states she is having some bleeding not filling a pad this has been going on for a few days just wanted you to know. I called patient back and let her know spotting is normal if it is a pad an hour to please call the office at [phone] to let us know. [facility] 12-05-2023 Miscellaneous Notes Patient states she is having some bleeding not filling a pad this has been going on for a few days just wanted you to know. I called patient back and let her know spotting is normal if it is a pad an hour to please call the office at [phone] to let us know. documented in this encounter [facility] 12-03-2023 Telephone encounter Note S: Patient spoke with CAC nurse regarding post op questions, bleeding found. B: Onset of symptoms/concern taking Eliquis ordered by Dr. Duque (ordered this for 28 day post operative as preventative for DVT) , Had a catheter post operative, Post op on Dec 15. A: Total abdominal hysterstomy. BSO used restroom she noticed a clot when urination and there is blood when she wipes, Clot pencil eraser x 1. No dizziness. R: Home care advise will continue to monitor for bleeding, if saturating a pad an hour. Will monitor for lightheadedness, dizziness or fever. Patient understands care advice. No further needs at this time. Patient instructed to call back with new or worsening symptoms. Reason for Disposition Other post-op symptom or question Protocols used: Post-Op Symptoms and [id number] [facility] 12-03-2023 Miscellaneous Notes S: Patient spoke with CAC nurse regarding post op questions, bleeding found. B: Onset of symptoms/concern taking Eliquis ordered by Dr. Duque (ordered this for 28 day post operative as preventative for DVT) , Had a catheter post operative, Post op on Dec 15. A: Total abdominal hysterstomy. BSO used restroom she noticed a clot when urination and there is blood when she wipes, Clot pencil eraser x 1. No dizziness. R: Home care advise will continue to monitor for bleeding, if saturating a pad an hour. Will monitor for lightheadedness, dizziness or fever. Patient understands care advice. No further needs at this time. Patient instructed to call back with new or worsening symptoms. Reason for Disposition Other post-op symptom or question Protocols used: Post-Op Symptoms and Paoiruwcc-[id number]-GA documented in this encounter [facility] [employer] 12-03-2023 Telephone encounter Note Lvm informing patient of the move from Dr. Astorga's schedule to [employer]. Same date and time. [facility] 12-03-2023 Miscellaneous Notes Lvm informing patient of the move from Dr. Astorga's schedule to [employer]. Same date and time. ----- Message from Robert Bruce MD sent at 12/02/2023 6:23 AM EDT ----- Please call and let her know pathology was completely benign. She also wanted to know the weight so L it was 2769 g. Please see for postop. documented in this encounter [facility] 12-02-2023 Telephone encounter Note ----- Message from Robert Bruce MD sent at 12/02/2023 6:23 AM EDT ----- Please call and let her know pathology was completely benign. She also wanted to know the weight so L it was 2769 g. Please see for postop. [facility] [employer] Work Phone: 12-02-2023 Miscellaneous Notes ----- Message from Robert Bruce MD sent at 12/02/2023 6:23 AM EDT ----- Please call and let her know pathology was completely benign. She also wanted to know the weight so L it was 2769 g. Please see for postop. documented in this encounter [facility] 12-02-2023 Telephone encounter Note Faxed to Dr. Vanessa at [phone] via [employer]. Confirmation scanned within media [facility] 12-02-2023 Telephone encounter Note ----- Message from Robert Bruce MD sent at 12/02/2023 6:23 AM EDT ----- z fax to Dr Ana Rosa Vanessa in [place] ----- Message ----- From: [employer] Sent: 11/27/2023 12:50 PM EDT To: Robert Bruce MD [facility] 12-02-2023 Miscellaneous Notes Faxed to Dr. Vanessa at [phone] via [employer]. Confirmation scanned within media ----- Message from Robert Bruce MD sent at 12/02/2023 6:23 AM EDT ----- Plz fax to Dr Ana Rosa Vanessa in [place] ----- Message ----- From: [employer] Sent: 11/27/2023 12:50 PM EDT To: Robert Bruce MD documented in this encounter [facility] 11-29-2023 Note Formatting of this n ote might be different from the original. Pt to be discharged to home with spouse today. PT recommending home health but pt declined per Jolene SABA. Pt denies any needs from tcc. [facility] 11-29-2023 Note Formatting of this n ote might be different from the original. Pt to be discharged to home with spouse today. PT recommending home health but pt declined per Jolene SABA. Pt denies any needs from tcc. [facility] 11-29-2023 Miscellaneous Notes Pt to be discharged to home with spouse today. PT recommending home health but pt declined per Jolene SABA. Pt denies any needs from tcc. Discussed Home Care Services available to patient post DC from the hospital. Educated the patient and spouse on the services that are provided, objective of home care, and reason for the services. At this time the patient states they feel home care is not necessary due to feeling comfortable transferring to and from wheelchair independently or with assistance from spouse. The patient politely refused the home care services. The patient was educated that should any needs arise post DC to follow up with their PCP. The patient was able to verbalize understanding. Home care to sign off. Please re-consult should any other needs arise prior to DC. TCC PROGRESS NOTE: Pt remains on H5 day two post op GERARDO, BSO. Pt continues to have issues with elevated glucose levels. Endocrine continuing to work with pt on resuming blood glucose control. Pt was also seen by diabetes education. Surgically, pt is doing well. Pt is a hemiplegic and is w/c dependent. She and her are very independent at home. Pt denies any needs from tcc. Anticipate dc to home when blood sugar controlled. 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 as indicated: Confirmation of Payer with patient/family: Yes Payer Name: [employer] [place]: No Confirmation of Primary Care Physician: Confirmed PCP Name: Ion Williamson, DO Seen in last 2 years?: Yes Primary Caregiver: Self If assistance needed, confirmed caregiver ready, willing and able to care for patient at discharge: Confirmed with: Living Arrangements Current Residence: House Number of Floors 1 Number of Entry Steps: Bed/Bath Levels: Both first floor Facility: Facility Name: Plan to Return: Lives with: Spouse/significant other Support Systems: Spouse/significant other, Family members, Friends/neighbors Activities of Daily Living Ambulation: Total Care (pt has hemiplegia and CP. uses motorized w/c) Bathing/Dressing: Assistance Elimination/Continence/Toileting: Assistance Feeding: Independent Who Assists with Activities of Daily Living: Pt's spouseRayna Instrumental Activities of Daily Living Prescription Coverage: Yes Pharmacy Used: [facility] [address] Medication Management: Independent Transportation/Shopping: Independent Transportation Mode: Wheelchair van Needs Assistance with Transportation at Discharge: No (spouse will transport) Meal Preparation: Independent Laundry/Cleaning: Independent Finances/Bill Paying: Independent Communication: Independent Types of Care Services/Equipment Utilized Care Services: Dialysis Type: Durable Medical Equipment: Wheelchair (standard or power), Marquez Lift, Shower Seat DME Provider: Sachin Patient's Goal/Discharge Plan Patient expects to be discharged to: home with spouse Discharge Planning Actions: Continue to follow Patient's Choice Rights and [employer] and Collaborative Relationships Disclosed as Indicated for Post-Acute Care: Interdisciplinary Team Engagement: Social Work Referral for: Additional Information: 58 yo female admitted to with intra-abdominal and pelvic swelling, mass and lump. Pt underwent surgery yesterday, 11/26/23: Total abd hysterectomy and bilateral salpingectomy. Dodson cath to be removed. Advanced to regular diet. Endocrine consult for elevated glucose levels. Pt has hx of hemiplegia and CP. She has been in a w/c since the age of [age]. Met with pt at bedside; explained role of tcc. Pt lives with her spouse, Rayna, who assists pt at home if needed. Pt does use her motorized w/c. She has grab bars, shower chair and marquez lift. Pt to work with PT today. She denies any needs from tcc. Will continue to follow. Akosua Hughes RN The patient is Moderately Unstable - Medium risk of patient condition declining or worsening The patient's goals for the shift include pain management, absence of muscle rigidity. The clinical goals for the shift include maintain patency of urinary catheter. Over the shift, the patient did not make progress toward the following goals. Barriers to progression include decreased appetite. Recommendations to address these barriers include nutritional consult. Report called to [facility] Date of surgery 11/26/2023 Preoperative diagnosis pelvic mass Morbid obesity postoperative diagnosis Uterine tumor of uncertain malignant potential Uterine leiomyoma Procedure GERARDO/BSO with omentectomy Surgeon Teo anesthesia General Description of operation patient identified brought to the operating room and after ministration general anesthesia underwent abdominal perineal vaginal prep and drape a Dodson cath was placed in the bladder compression stockings on a running. Mass performed antibiotics were given. Using a scalpel a midline incision was made sharp divided down through the skin around the umbilicus. Bovie cautery was used to coagulate and divide subcutaneous tissue as well as the fascia. The Jann wound retractor was then placed. The omentum was very densely adherent to the uterus in multiple places. Using the Enseal device several portions of the omentum was removed along with the uterus. Several other adhesions were sharply lysed. The right pelvic sidewall was open the right ureter identified the right ovarian vessels were skeletonized above the ureter coagula the Enseal device and divided the round ligament was coagulated and divided. Similar dissection then repeated on the left side. The bladder was then dissected inferiorly allowing the uterine vessels to be skeletonized clamped cut and tied with curved Sravani's and 0 Vicryl suture transfixion. Cardinal ligaments were serially clamped cut and tied using straight Zeppelin's and 0 Vicryl transfixion suture. The vagina was then opened using the right angle scissors, the uterus cervix tubes ovaries and portion of omentum handed off the field angle sutures were placed in the vaginal cuff followed by interrupted 0 Vicryl [id number]'s in the vagina. Hemostasis was noted pelvis irrigated all incisions were accounted for fascia was then closed using a running #1 PDS in a loop mass closure system followed by subcutaneous interrupted #1 PDS subcutaneous interrupted 3-0 Vicryl in a running 3-0 Monocryl on the skin with Steri-Strips. Blood loss was about 150 cc and she was taken to the cover room in stable condition by anesthesia. Uterus was opened off the field after it was removed from the abdomen the endometrial cavity was very bland with no evidence of endometrial cancer or hyperplasia Date: 11/26/2023 Location: [facility] OR Name: Taylor Wesley, : 1965, Diagnosis Pre-op Diagnosis * Intra-abdominal and pelvic swelling, mass and lump, unspecified site [R19.00] Post-op Diagnosis * Intra-abdominal and pelvic swelling, mass and lump, unspecified site [R19.00] Procedures TOTAL ABDOMINAL HYSTERECTOMY BILATERAL SALPINGO OOPHORECTOMY 03652 - DE TOTAL ABDOMINAL HYSTERECT W/WO RMVL TUBE OVARY Surgeons * Robert Bruce - Primary Procedure Summary Anesthesia: General ASA: III Estimated Blood Loss: 150 cc Drains: Urethral Catheter Straight-tip (Active) Specimens ID Source Type Tests Collected By Collected At Frozen? Priority Lab ID 1 Peritoneal Washings Wash NON-GYNECOLOGIC CYTOLOGY Robert Bruce MD 11/26/23 0954 No Description: PELVIC WASHINGS 2 Uterus Tissue TISSUE EXAM Robert Burce MD 11/26/23 1006 No Routine Description: UTERUS CERVIX BILATERAL FALLOPIAN TUBES AND BILATERAL OVARIES AND PORTION OF OMENTUM Staff: Supervising Appraiser: Emily Arana RN Scrub Person: Ana Madrigal RN [place] to Circ: Shoshana Ocampo [employer] Ev[employer] Sales Student: Katie Levine Findings: large fibroid Complications: None; patient tolerated the procedure well. Specimens Collected: Order Name Source Comment Collection Info Order Time POTASSIUM WITH MG REFLEX For patients on dialysis to draw potassium day of surgery 11/26/2023 8:23 AM PROTHROMBIN TIME If patient on coumadin within 4 days prior. 11/26/2023 8:23 AM HCG QUALITATIVE URINE Urine, Clean Catch Discontinue this order if: 1. patient is older than 55 years old 2. has had a prior hysterectomy 3. today's surgery is for treatment of known or suspected ectopic or loss. 4. patient has a known intrauterine but this is a needed surgery. 11/26/2023 8:23 AM NON-GYNECOLOGIC CYTOLOGY Peritoneal Washings Collected By: Robert Bruce MD 11/26/2023 9:28 AM TISSUE EXAM Uterus Collected By: Robert Bruce MD 11/26/2023 10:07 AM Wound Class: Class II: Clean-Contaminated Blood Products: None Prophylactic Antibiotics: Procedure appropriate prophylactic antibiotic(s) given within 1 hour of surgical incision (two hours if receiving Vancomycin or flouroquinolone) documented in this encounter [facility] 11-29-2023 Note Comb Winder Discharge Summar y Patient Name: Taylor Wesley Patient : 1965 Primary Care Physician: Ion Williamson DO Admit Date: 11/26/2023 Attending Provider: Robert Bruce MD Principal Diagnosis: Post operative state,leiomyomata uterus Other Diagnosis: Intra-abdominal and pelvic swelling, mass and lump, unspecified site [R19.00] Patient Active Problem List Diagnosis Intra-abdominal and pelvic swelling, mass and lump, unspecified site Surgical Operations & Procedures: Total abdominal hysterectomy, bilateral salpingo-oophorectomy, Consultations: Endocrinology Pertinent Findings & Procedures: Taylor Wesley is a 58 y.o. female , admitted for postoperative care after the above procedure on 11/26/23. Endocrine was consulted as patient BGTs were uncontrolled after surgery. Patient blood sugars were better controlled after initiation on insulin. Patient to be discharged on insulin, Ozempic and will follow up outpatient. Patient also to be on eliquis for 28 days for prophylactic DVT therapy Hospital course normal, discharged home. Follow up in 2 weeks. Discharge instructions reviewed and questions answered. Course of patient: normal Discharge to: Home Wound Care: keep wound clean and dry Recommendations on Discharge: Medications: Medication List START taking these medications apixaban 2.5 MG tablet Commonly known as: Eliquis Take 1 tablet (2.5 mg) by mouth 2 times daily for 28 days. Basaglar KwikPen 100 UNIT/ML pen Generic drug: insulin glargine Inject 20 Units under the skin every morning. Dexcom G7 Sensor misc Use every 10 days docusate sodium 100 MG capsule Commonly known as: Colace Take 1 capsule (100 mg) by mouth 2 times daily for 10 days. ibuprofen 600 MG tablet Take 1 tablet (600 mg) by mouth every 6 hours as needed for mild pain (1-3). insulin pen needle 32G x 4 mm misc Once a day oxyCODONE 5 MG immediate release tablet Commonly known as: Roxicodone Take 1 tablet (5 mg) by mouth every 6 hours as needed for severe pain (7-10) for up to 5 days. Ozempic (0.25 or 0.5 MG/DOSE) 2 MG/3ML solution pen-injector Generic drug: semaglutide 0.25 mg weekly for 4 weeks then increase to 0.5 mg weekly CHANGE how you take these medications * Acetaminophen 500 MG capsule Take 2 capsules (1,000 mg) by mouth every 6 hours as needed for mild pain (1-3). What changed: You were already taking a medication with the same name, and this prescription was added. Make sure you understand how and when to take each. * acetaminophen 325 MG suppository Commonly known as: Tylenol What changed: Another medication with the same name was added. Make sure you understand how and when to take each. * This list has 2 medication(s) that are the same as other medications prescribed for you. Read the directions carefully, and ask your doctor or other care provider to review them with you. CONTINUE taking these medications albuterol 108 (90 Base) MCG/ACT inhaler diazePAM 5 MG tablet Commonly known as: Valium glimepiride 2 MG tablet Commonly known as: Amaryl indapamide 2.5 MG tablet Commonly known as: Lozol KLOR-CON PO ondansetron 4 MG tablet Commonly known as: Zofran Where to Get Your Medications These medications were sent to [facility] [address] [place] [id number] Acetaminophen 500 MG capsule apixaban 2.5 MG tablet Basaglar KwikPen 100 UNIT/ML pen Dexcom G7 Sensor misc docusate sodium 100 MG capsule ibuprofen 600 MG tablet insulin pen needle 32G x 4 mm misc oxyCODONE 5 MG immediate release tablet Ozempic (0.25 or 0.5 MG/DOSE) 2 MG/3ML solution pen-injector Activity: activity as tolerated Diet: diabetic diet Follow up: [address] Bruce Condition on discharge: good and stable Discharge Date: 11/29/23 Comments: Home care, Follow-up care, restrictions reviewed. Di Duque, 11/29/2023, 12:02 PM [facility] 11-29-2023 Note Formatting of this n ote might be different from the original. Discussed Home Care Services available to patient post DC from the hospital. Educated the patient and spouse on the services that are provided, objective of home care, and reason for the services. At this time the patient states they feel home care is not necessary due to feeling comfortable transferring to and from wheelchair independently or with assistance from spouse. The patient politely refused the home care services. The patient was educated that should any needs arise post DC to follow up with their PCP. The patient was able to verbalize understanding. Home care to sign off. Please re-consult should any other needs arise prior to DC. [facility] 11-29-2023 Note Formatting of this n ote might be different from the original. Discussed Home Care Services available to patient post DC from the hospital. Educated the patient and spouse on the services that are provided, objective of home care, and reason for the services. At this time the patient states they feel home care is not necessary due to feeling comfortable transferring to and from wheelchair independently or with assistance from spouse. The patient politely refused the home care services. The patient was educated that should any needs arise post DC to follow up with their PCP. The patient was able to verbalize understanding. Home care to sign off. Please re-consult should any other needs arise prior to DC. [facility] 11-29-2023 Nurse Note Pt discharge papers reviewed and signed, pt verbalized understanding [facility] 11-29-2023 Nurse Note Pt discharge papers reviewed and signed, pt verbalized understanding documented in this encounter [facility] 11-29-2023 History of Present illness Narrative Images from the original note were not included. PHYSICAL THERAPY [facility] Name/MRN: Taylor Wesley ([id number]) Date: 11/29/2023 Pt is planning on going home today, prefers to save her energy for transfer to home. Di Anaya PT Department of Internal Medicine Division of Endocrinology, Diabetes, & Metabolism Endocrinology Note Patient Name: Taylor Wesley : 1965 AGE: 58 y.o. Room[facility]: [facility] Admission Date: 11/26/2023 Visit Date: 11/29/2023 Reason for Endocrine Consult: Uncontrolled T2DM Provider/Team Requesting Consult: Dr. Linda PCP: DO Stephanie Warner Devops: No ASSESSMENT: Type 2 diabetes with hyperglycemia without long-term insulin use Status post total abdominal hysterectomy Morbid obesity Steroid-induced hyperglycemia: Patient received dexamethasone 4 mg after surgery PLAN: Blood glucose readings improved. Continue same insulin doses ICU goal <180 GMF goal <150 POCT BG [facility] Hypoglycemia management per protocol Carb controlled diet ANTICIPATED ENDOCRINE HOME GOING RECOMMENDATIONS: Optimized for Discharge from Endocrine standpoint: yes Home Going Endocrine Rx Recommendations-- Basaglar 20 units every morning Insulin pen needle 32 x 4 mm 4 times a day Ozempic 0.25 mg weekly for 4 weeks then increase it to 0.5 mg weekly Dexcom G7 sensor every 10 days I sent all prescriptions to her pharmacy Provide on discharge Outpt Follow Up-- [facility], TE sent SUBJECTIVE/HPI: CHIEF COMPLAINT: Status post total abdominal hysterectomy Denies complaints. Blood glucose readings improving Glucose Date/Time Value Ref Range Status 11/29/2023 07:44 AM 199 (H) 70 - 100 mg/dL Final 11/28/2023 07:54 PM 223 (H) 70 - 100 mg/dL Final 11/28/2023 05:02 PM 156 (H) 70 - 100 mg/dL Final 11/28/2023 11:44 AM 206 (H) 70 - 100 mg/dL Final 11/28/2023 07:32 AM 263 (H) 70 - 100 mg/dL Final 11/28/2023 12:46 AM 359 (H) 70 - 100 mg/dL Final ROS negative except for those mentioned in HPI. OBJECTIVE: Vitals: 11/28/23 0526 11/28/23 1703 11/28/23 2105 11/29/23 0545 BP: 129/76 109/80 125/59 128/59 BP Location: Left arm Pulse: 86 83 98 83 Resp: 19 16 18 16 Temp: 36.6 C (97.8 F) 36.1 C (97 F) 36.6 C (97.8 F) 36.3 C (97.3 F) TempSrc: Temporal Temporal Temporal Temporal SpO2: 98% 99% 94% 97% Physical Exam Constitutional: General: She is not in acute distress. HENT: Head: Normocephalic and atraumatic. Pulmonary: Effort: Pulmonary effort is normal. No respiratory distress. Skin: General: Skin is warm and dry. Neurological: Mental Status: She is alert. Psychiatric: Mood and Affect: Mood normal. Thought Content: Thought content normal. 24 hour intake/output: Intake/Output Summary (Last 24 hours) at 11/29/2023 1125 Last data filed at 11/29/2023 0700 Gross per 24 hour Intake 100 ml Output 100 ml Net 0 ml Diet: Adult diet Regular; 4 carb choices (60 gm/meal) Medications (as per EMR): HomeMeds: Current Outpatient Medications Medication Instructions acetaminophen (Tylenol) 325 MG suppository Rectal albuterol 108 (90 Base) MCG/ACT inhaler 2 puffs, Inhalation, Every 6 hours PRN Basaglar KwikPen 20 Units, SubCUTAneous, Every morning Continuous Glucose Sensor (Dexcom G7 Sensor) misc Use every 10 days diazePAM (Valium) 5 MG tablet TAKE 1 TABLET BY MOUTH ONCE DAILY ONE HOUR BEFORE MEDICAL PROCEDURES. MUST LAST 90 DAYS OR LONGER. glimepiride (AMARYL) 2 mg, Oral, 2 times daily indapamide (Lozol) 2.5 MG tablet Daily insulin pen needle 32G x 4 mm misc Once a day ondansetron (Zofran) 4 MG tablet Oral, PRN Potassium Chloride (KLOR-CON PO) 20 mEq, Oral, Daily semaglutide (Ozempic, 0.25 or 0.5 MG/DOSE,) 2 MG/3ML solution pen-injector 0.25 mg weekly for 4 weeks then increase to 0.5 mg weekly Scheduled Meds:acetaminophen, 1,000 mg, Oral, q6h enoxaparin, 40 mg, SubCUTAneous, Daily hydroCHLOROthiazide, 50 mg, Oral, Daily ibuprofen, 600 mg, Oral, q6h insulin glargine, 20 Units, SubCUTAneous, q AM insulin lispro, 0-12 Units, SubCUTAneous, TID WC insulin lispro, 7 Units, SubCUTAneous, TID WC polyethylene glycol (PEG) 3350, 17 g, Oral, Daily sodium chloride 0.9%, 10 mL, IntraVENous, 2 times per day Continuous Infusions:lactated Ringer's, 50 mL/hr, Last Rate: 50 mL/hr (11/26/23 0903) PRN Meds:PRN medications: albuterol, dextrose, dextrose, glucagon (rDNA), glucose, naloxone, ondansetron ODT OR ondansetron, oxyCODONE OR oxyCODONE, senna-docusate sodium, sodium chloride, sodium chloride 0.9% Diagnostic Workup: I reviewed pertinent Laboratory results, Radiographic results, and Other Clinical Notes at the time of today's encounter. Labs: No components found for: LABA1C No components found for: EAG No results found for: NA, K, CL, CO2, BUN, CREATININE, GLUCOSE, CALCIUM No results found for: CHLPL, CHOL No results found for: TRIG No results found for: HDL No results found for: LDLCALC No results found for: VLDL No results found for: CHOLHDLRATIO No results found for: [id number] No results found for: TSH, [id number], S0QWRGT, THYROIDAB Radiology reportsas per the Radiologist Radiology: POCT glucose meter Result Date: 11/27/2023 Performed by: [facility], [address] [place] [id number] CLIA ID: [id number] POCT glucose meter Result Date: 11/27/2023 Performed by: [facility], [address] [place] [id number] CLIA ID: [id number] POCT glucose meter Result Date: 11/27/2023 Performed by: [facility], [address] [place] [id number] CLIA ID: [id number] POCT glucose meter Result Date: 11/27/2023 Performed by: theBencha Dav[facility], [address] [place] [id number] CLIA ID: [id number] POCT glucose meter Result Date: 11/26/2023 Performed by: [employer], [address] [place] [address], [facility] [facility] [address] CLIA ID: [id number] POCT glucose meter Result Date: 11/26/2023 Performed by: [facility], [address] [place] [address] [place] [address] CLIA ID: [id number] POCT glucose meter Result Date: 11/26/2023 Performed by: [facility], [address] [place] [address] [place] [address] CLIA ID: [id number] POCT glucose meter Result Date: 11/26/2023 Performed by: [facility], [address] [place] [address], [facility]ly [facility], [facility] [address] CLIA ID: [id number] POCT glucose meter Result Date: 11/26/2023 Performed by: [facility], [address] [place] [id number] CLIA ID: [id number] History/Other: 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 Past Surgical History: Past Surgical History: Procedure Laterality Date ACHILLES TENDON SURGERY Bilateral BACK SURGERY BX OF BREAST, NEEDLE CORE, IMAGE GUIDE (HISTORICAL) Right 02/28/2021 benign DILATION AND CURETTAGE OF UTERUS 09/2023 attempted OTHER SURGICAL HISTORY Bilateral hamstring surgery ROTATOR CUFF REPAIR Right 2014 THUMB SURGERY (HISTORICAL) TOTAL HIP ARTHROPLASTY Left Allergy(ies): Allergies Allergen Reactions Amoxicillin Other Reaction(s): GI Upset, Nausea Family History: Family History Problem Relation Name Age of Onset Breast cancer Mother Diabetes Maternal Grandmother Social History: Social History Tobacco Use Smoking status: Never Smokeless tobacco: Never Vaping Use Vaping status: Never Used Substance Use Topics Alcohol use: Yes Comment: 1-2 drinks per month Drug use: Never Portions of the information within this encounter were entered using an electronic dictation system. Best attempts were made to edit/proofread the information prior to note completion. Despite the review of information, some errors may remain. If there are questions related to the information contained within the note please contact the signing physician directly. I spent 35 minutes with the pt which involved coordination of care, medical evaluation, review of records, and/or counseling of the pt regarding his/her condition/disease state/prognosis on the date of this note. Patient was evaluated at the bedside this afternoon. She had no acute complaints. She is tolerating oral intake. Pain is well-controlled, though slightly more pain than this morning as she has been moving around more today. She is passing flatus, no bowel movement yet. Has been keeping track of her meals in her food danielle and RN working with her on insulin education. BGT's are improving. BP 129/76 (BP Location: Left arm) Pulse 86 Temp 36.6 C (97.8 F) (Temporal) Resp 19 Physical Exam: Gen: NAD, alert and cooperative Resp: No increased WOB Card: Regular rate Abd: Soft, slightly distended but stable since this AM, appropriately tender post-op, no rebound tenderness/guarding/rigidity Incisions: Midline vertical incision C/D/I Ext: No LE edema, no calf tenderness or swelling A&P: Continue inpatient management Nutrition rescreen completed. Patient referred to the Dietitian. A1C 10.4; Uncontrolled DM. Department of Internal Medicine Division of Endocrinology, Diabetes, & Metabolism Endocrinology Note Patient Name: Taylor Wesley : 1965 AGE: 58 y.o. Room/Bed: [facility]/[address] Admission Date: 11/26/2023 Visit Date: 11/28/2023 Reason for Endocrine Consult: Uncontrolled T2DM Provider/Team Requesting Consult: Dr. Linda PCP: Ion Williamson DO Outpt Devops: No ASSESSMENT: Uncontrolled T2DM with hyperglycemia S/p GERARDO with BL salpingoophorectomy Morbid obesity Steroid-induced hyperglycemia PLAN: Increase insulin glargine to 20 units Increase meal-time insulin to 7 units ICU goal <180 GMF goal <150 POCT BG [facility] Hypoglycemia management per protocol Carb controlled diet ANTICIPATED ENDOCRINE HOME GOING RECOMMENDATIONS: Optimized for Discharge from Endocrine standpoint: No Home Going Endocrine Rx Recommendations-- Pending Outpt Follow Up-- None SUBJECTIVE/HPI: CHIEF COMPLAINT: No chief complaint on file. Ms. Wesley is a 58yoF with a pmhx T2DM that presented to [facility] 11/25 for GERARDO with BL salpingoophorectomy and Endocrinology following for uncontrolled T2DM with persistent hyperglycemia. Was given 10 units NPH overnight. Evaluated at bedside. No acute complaints. Concerned about her current diet order but reassured that her diet is a diabetic diet. Glucose Date/Time Value Ref Range Status 11/28/2023 07:32 AM 263 (H) 70 - 100 mg/dL Final 11/28/2023 12:46 AM 359 (H) 70 - 100 mg/dL Final 11/27/2023 08:01 PM 308 (H) 70 - 100 mg/dL Final 11/27/2023 04:34 PM 329 (H) 70 - 100 mg/dL Final 11/27/2023 12:17 PM 307 (H) 70 - 100 mg/dL Final 11/27/2023 07:31 AM 328 (H) 70 - 100 mg/dL Final ROS negative except for those mentioned in HPI. OBJECTIVE: Vitals: 11/27/23 1707 11/27/23 2006 11/28/23 0004 11/28/23 0526 BP: 136/70 134/71 133/65 129/76 BP Location: Right arm Left arm Patient Position: Pulse: 98 94 97 86 Resp: Temp: 36.5 C (97.7 F) 36.9 C (98.5 F) 36.8 C (98.3 F) 36.6 C (97.8 F) TempSrc: Temporal Temporal Temporal Temporal SpO2: 97% 97% 96% 98% Physical Exam Constitutional: General: She is not in acute distress. HENT: Head: Normocephalic and atraumatic. Pulmonary: Effort: Pulmonary effort is normal. No respiratory distress. Skin: General: Skin is warm and dry. Neurological: Mental Status: She is alert. Psychiatric: Mood and Affect: Mood normal. Thought Content: Thought content normal. 24 hour intake/output: Intake/Output Summary (Last 24 hours) at 11/28/2023 0754 Last data filed at 11/27/2023 2048 Gross per 24 hour Intake 500 ml Output 1250 ml Net -750 ml Diet: Adult diet Regular; 4 carb choices (60 gm/meal) Medications (as per EMR): HomeMeds: Current Outpatient Medications Medication Instructions acetaminophen (Tylenol) 325 MG suppository Rectal albuterol 108 (90 Base) MCG/ACT inhaler 2 puffs, Inhalation, Every 6 hours PRN diazePAM (Valium) 5 MG tablet TAKE 1 TABLET BY MOUTH ONCE DAILY ONE HOUR BEFORE MEDICAL PROCEDURES. MUST LAST 90 DAYS OR LONGER. glimepiride (AMARYL) 2 mg, Oral, 2 times daily indapamide (Lozol) 2.5 MG tablet Daily ondansetron (Zofran) 4 MG tablet Oral, PRN Potassium Chloride (KLOR-CON PO) 20 mEq, Oral, Daily Scheduled Meds:acetaminophen, 1,000 mg, Oral, q6h enoxaparin, 40 mg, SubCUTAneous, Daily hydroCHLOROthiazide, 50 mg, Oral, Daily ibuprofen, 600 mg, Oral, q6h insulin glargine, 15 Units, SubCUTAneous, q AM insulin lispro, 0-12 Units, SubCUTAneous, TID WC insulin lispro, 5 Units, SubCUTAneous, TID WC polyethylene glycol (PEG) 3350, 17 g, Oral, Daily sodium chloride 0.9%, 10 mL, IntraVENous, 2 times per day Continuous Infusions:lactated Ringer's, 50 mL/hr, Last Rate: 50 mL/hr (11/26/23 0903) PRN Meds:PRN medications: albuterol, dextrose, dextrose, glucagon (rDNA), glucose, naloxone, ondansetron ODT OR ondansetron, oxyCODONE OR oxyCODONE, senna-docusate sodium, sodium chloride, sodium chloride 0.9% Diagnostic Workup: I reviewed pertinent Laboratory results, Radiographic results, and Other Clinical Notes at the time of today's encounter. Labs: No components found for: LABA1C No components found for: EAG No results found for: NA, K, CL, CO2, BUN, CREATININE, GLUCOSE, CALCIUM No results found for: CHLPL, CHOL No results found for: TRIG No results found for: HDL No results found for: LDLCALC No results found for: VLDL No results found for: CHOLHDLRATIO No results found for: KEVO28QOD No results found for: TSH, I5PKZMF, S1EEIDY, THYROIDAB Radiology reportsas per the Radiologist Radiology: POCT glucose meter Result Date: 11/27/2023 Performed by: [facility], [address] [place] [address] CLIA ID: [id number] POCT glucose meter Result Date: 11/27/2023 Performed by: [facility], [address] [place] [address] CLIA ID: [id number] POCT glucose meter Result Date: 11/27/2023 Performed by: [facility] [address] CLIA ID: [id number] POCT glucose meter Result Date: 11/27/2023 Performed by: [facility], [address] [place] [address] CLIA ID: [id number] POCT glucose meter Result Date: 11/26/2023 [facility]: [facility], [address] [place] [address] CLIA ID: [id number] POCT glucose meter Result Date: 11/26/2023 Performed by: [facility], [address] [place] [address] CLIA ID: [id number] POCT glucose meter Result Date: 11/26/2023 Performed by: [facility], [address] [place] [address] CLIA ID: [id number] POCT glucose meter Result Date: 11/26/2023 Performed by: [facility], [address] [place] [address] CLIA ID: [id number] POCT glucose meter Result Date: 11/26/2023 Performed by: [facility], [address] [place] [address] CLIA ID: [id number] History/Other: 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 Past Surgical History: Past Surgical History: Procedure Laterality Date ACHILLES TENDON SURGERY Bilateral BACK SURGERY BX OF BREAST, NEEDLE CORE, IMAGE GUIDE (HISTORICAL) Right 02/28/2021 benign DILATION AND CURETTAGE OF UTERUS 09/2023 attempted OTHER SURGICAL HISTORY Bilateral hamstring surgery ROTATOR CUFF REPAIR Right 2014 THUMB SURGERY (HISTORICAL) TOTAL HIP ARTHROPLASTY Left Allergy(ies): Allergies Allergen Reactions Amoxicillin Other Reaction(s): GI Upset, Nausea Family History: Family History Problem Relation Name Age of Onset Breast cancer Mother Diabetes Maternal Grandmother Social History: Social History Tobacco Use Smoking status: Never Smokeless tobacco: Never Vaping Use Vaping status: Never Used Substance Use Topics Alcohol use: Yes Comment: 1-2 drinks per month Drug use: Never Portions of the information within this encounter were entered using an electronic dictation system. Best attempts were made to edit/proofread the information prior to note completion. Despite the review of information, some errors may remain. If there are questions related to the information contained within the note please contact the signing physician directly. I spent 35 minutes with the pt which involved coordination of care, medical evaluation, review of records, and/or counseling of the pt regarding his/her condition/disease state/prognosis on the date of this note. Associated attestation - Chung Miner MD - 11/28/2023 12:39 PM EDT I have personally performed a face to face diagnostic evaluation on this patient. In addition, I have reviewed the resident's/SED SPECIAL EDUCATION TEACHER/KETTLE HAND's care plan and agree with those findings I have performed a substantive portion of the the medical decision making. My findings are as follows: Denies nausea or vomiting Blood glucose readings elevated Gave extra NPH last night Vitals: BP 129/76 (BP Location: Left arm) Pulse 86 Temp 36.6 C (97.8 F) (Temporal) Resp LMP 11/19/2023 (Exact Date) Comment: random bleeding SpO2 98% Respiratory: No respiratory distress Cardiovascular System: No lower extremity edema Abdomen: obese Psychiatric: Conscious, alert, oriented to time, place and person A/P Type 2 diabetes with hyperglycemia without long-term insulin use Status post total abdominal hysterectomy Morbid obesity Steroid-induced hyperglycemia: Patient received dexamethasone 4 mg after surgery Increase Lantus to 20 units every morning and Humalog to 7 units before meals Obtain blood glucose readings before meals and at bedtime Carb controlled diet Treat hypoglycemia per protocol Target BG on General floors: FBG <140 and random BG <180 Target BG for ICU <180 Patient was counseled about the importance of diabetes management. Patient was counseled about the importance of following a healthy diet and exercise. Patient was counseled about hypoglycemia symptoms and management. For discharge discussed with patient the option of basal insulin and GLP-1 receptor agonist The plan is to discharge patient on Basaglar plus Ozempic Will have patient also on Dexcom G7 Patient received diabetes education and Dexcom G7 was placed yesterday I spent 35 minutes with the pt which involved in coordination of care, medical evaluation, review of records, and/or counseling of the pt regarding his/her condition/disease state/prognosis on the date of this note. Old records including available PCP, ED notes and or other specialists notes are reviewed. LABs and/or imaging are reviewed as detailed in the resident's/SED SPECIAL EDUCATION TEACHER/KETTLE HAND's note Images from the original note were not included. [employer] Progress Note Date: 11/28/2023 Time: 6:14 AM Please page the [facility] [employer] Call RES group via Secure Chat for any questions or concerns. Taylor Wesley 58 y.o. female , POD # 2 s/p GERARDO, BSO Patient seen and examined. She voiced concerns about her blood sugar this morning, and would like to talk to diabetes education again about her carb allowance, as it is higher than what she was following at home and she is having a hard time choosing from the menu in hospital. Pain is controlled. Patient is tolerating oral intake. She is urinating. She is passing flatus. She denies Fever/Chills, Chest Pain, SOB, N/V. Vitals: Vitals: 11/27/23 1707 11/27/23 2006 11/28/23 0004 11/28/23 0526 BP: 136/70 134/71 133/65 129/76 BP Location: Right arm Left arm Patient Position: Pulse: 98 94 97 86 Resp: Temp: 36.5 C (97.7 F) 36.9 C (98.5 F) 36.8 C (98.3 F) 36.6 C (97.8 F) TempSrc: Temporal Temporal Temporal Temporal SpO2: 97% 97% 96% 98% Intake/Output: Current Shift: I/O this shift: In: 500 [P.O.:500] Out: 700 [Urine:700] Physical Exam: Gen: NAD, alert and cooperative HEENT: Normocephalic, atraumatic, EOMI, MMM Resp: CTABL, no WRR Card: RRR, no murmur Abd: soft, NT/ND, no rebound, no guarding Incisions: midline vertical incision C/D/I with steri-strips Ext: No LE edema, no calf tenderness or swelling Medications: Current Facility-Administered Medications: acetaminophen (Tylenol) tablet 1,000 mg, 1,000 mg, Oral, q6h, Lainey Linda, DO, 1,000 mg at 11/28/23 0550 albuterol 108 (90 Base) MCG/ACT inhaler 2 puff, 2 puff, Inhalation, q6h PRN, Lainey Linda DO dextrose 5 % infusion, 100 mL/hr, IntraVENous, PRN, Di Duque, DO dextrose 50 % solution 12.5 g, 12.5 g, IntraVENous, PRN, Di Sotou, DO enoxaparin (Lovenox) syringe 40 mg, 40 mg, SubCUTAneous, Daily, Lainey Linda, , 40 mg at 11/27/23 0928 glucagon (human recombinant) injection 1 mg, 1 mg, IntraMUSCular, PRN, Di Duque, DO glucose oral gel 15 g, 15 g, Oral, PRN, Di Sotou, DO hydroCHLOROthiazide (HYDRODiuril) tablet 50 mg, 50 mg, Oral, Daily, Lainey Linda DO, 50 mg at 11/27/23 0928 [COMPLETED] ketorolac (Toradol) injection 30 mg, 30 mg, IntraVENous, 4 times per day, 30 mg at 11/27/23 1124 FOLLOWED BY ibuprofen tablet 600 mg, 600 mg, Oral, q6h, Lainey Linda DO, 600 mg at 11/28/23 0550 insulin glargine (Lantus) injection 15 Units, 15 Units, SubCUTAneous, q AM, Chana Horvath DO Insulin Lispro (Humalog) injection 0-12 Units, 0-12 Units, SubCUTAneous, TID Chana DEVINE DO, 8 Units at 11/27/23 1641 Insulin Lispro (Humalog) injection 5 Units, 5 Units, SubCUTAneous, TID Chana DEVINE DO, 5 Units at 11/27/23 1641 lactated Ringer's (LR) infusion, 50 mL/hr, IntraVENous, Continuous, Isabel Gonzalez APRN - CT, Last Rate: 50 mL/hr at 11/26/23 09, Continued by Anesthesia at 11/26/23902 naloxone (Narcan) injection 0.4 mg, 0.4 mg, IntraVENous, q5 min PRN, Robert Bruce MD ondansetron ODT (Zofran-ODT) disintegrating tablet 4 mg, 4 mg, Oral, q8h PRN OR ondansetron (Zofran) injection 4 mg, 4 mg, IntraVENous, q6h PRN, Lainey Linda, DO oxyCODONE (Roxicodone) immediate release tablet 5 mg, 5 mg, Oral, q4h PRN OR oxyCODONE (Roxicodone) immediate release tablet 10 mg, 10 mg, Oral, q4h PRN, Lainey Linda, DO, 10 mg at 11/26/232122 polyethylene glycol (PEG) 3350 (Miralax) packet 17 g, 17 g, Oral, Daily, Lainey Linda, DO, 17 g at 11/27/23 0929 senna-docusate sodium (Senokot-S) 8.6-50 MG tablet 2 tablet, 2 tablet, Oral, Daily PRN, Lainey Linda, DO sodium chloride 0.9 % infusion, 5-250 mL/hr, IntraVENous, PRN, Lainey Linda, DO sodium chloride 0.9% (NS) flush 10 mL, 10 mL, IntraVENous, 2 times per day, Lainey Linda, DO, 10 mL at 11/27/232010 sodium chloride 0.9% (NS) flush 10 mL, 10 mL, IntraVENous, PRN, Lainey Linda, DO Diagnostics: POCT glucose meter Result Date: 11/27/2023 [facility]formed by: [facility], [address] [place] [address] CLIA ID: [id number] POCT glucose meter Result Date: 11/27/2023 Performed by: [facility], [address] [place] [address] CLIA ID: [id number] POCT glucose meter Result Date: 11/27/2023 Performed by: [facility], [address] [place] [address] CLIA ID: [id number] POCT glucose meter Result Date: 11/27/2023 Performed by: [facility] [place] [facility], [address] [place] [id number] CLIA ID: [id number] POCT glucose meter Result Date: 11/26/2023 Performed by: [facility] [place] [facility], [address] [place] [address], [place] [address] CLIA ID: [id number] POCT glucose meter Result Date: 11/26/2023 Performed by: [facility] [place] [facility], [address] [place] [address], [place] [address] CLIA ID: [id number] POCT glucose meter Result Date: 11/26/2023 Performed by: [facility] [place] [facility], [address] [place] [address], [place] [address] CLIA ID: [id number] POCT glucose meter Result Date: 11/26/2023 Performed by: [facility] [place] [facility], [address] [place] [address], [place] [address] CLIA ID: [id number] POCT glucose meter Result Date: 11/26/2023 Performed by: [facility] [place] [facility], [address] [place] [address], [place] [address] CLIA ID: [id number] Labs: Admission on 11/26/2023 Component Date Value Ref Range Status Glucose 11/26/2023 270 (H) 70 - 100 mg/dL Final Case Report 11/26/2023 Final Value:Non-Gynecologic Cytology Case: [id number] Authorizing Provider: Robert Bruce MD Collected: 11/26/2023 0928 Ordering Location: [facility] Received: 11/26/2023 1405 Pathologist: Pineda Hanson MD Specimen: Peritoneal Washings, PELVIC WASHINGS Final Diagnosis 11/26/2023 Final Value:This result contains rich text formatting which cannot be displayed here. Comment 11/26/2023 Final Value:This result contains rich text formatting which cannot be displayed here. Gross Description 11/26/2023 Final Value:This result contains rich text formatting which cannot be displayed here. Disclaimer 11/26/2023 Final Value:This result contains rich text formatting which cannot be displayed here. Case Screening Location 11/26/2023 [facility], [address] [facility] [address]; CLIA: [id number]; Joint Commission: [id number]; CAP: [id number] Final Pathologist Interpretation Location 11/26/2023 [facility], [address] [facility] [address]; CLIA: [id number]; Joint Commission: [id number]; CAP: [id number] Final Glucose 11/26/2023 321 (H) 70 - 100 mg/dL Final Glucose 11/26/2023 313 (H) 70 - 100 mg/dL Final Glucose 11/26/2023 356 (H) 70 - 100 mg/dL Final Auto WBC 11/27/2023 13.5 (H) 3.6 - 10.7 10*3/uL Final RBC 11/27/2023 4.36 3.80 - 5.20 10*6/uL Final Hemoglobin 11/27/2023 12.7 11.7 - 16.0 g/dL Final Hematocrit 11/27/2023 37.8 35.0 - 47.0 % Final MCV 11/27/2023 86.7 77.0 - 99.0 fL Final MCH 11/27/2023 29.1 26.0 - 34.0 pg Final MCHC 11/27/2023 33.6 30.5 - 36.0 % Final RDW 11/27/2023 11.9 11.5 - 15.0 % Final Platelets 11/27/2023 306 140 - 440 10*3/uL Final MPV 11/27/2023 10.2 9.0 - 12.7 fL Final Glucose 11/26/2023 321 (H) 70 - 100 mg/dL Final Glucose 11/27/2023 328 (H) 70 - 100 mg/dL Final Glucose 11/27/2023 307 (H) 70 - 100 mg/dL Final Glucose 11/27/2023 329 (H) 70 - 100 mg/dL Final Glucose 11/27/2023 308 (H) 70 - 100 mg/dL Final Glucose 11/28/2023 359 (H) 70 - 100 mg/dL Final Assessment/Plan: Taylor Wesley 58 y.o. female , POD #2 s/p GERARDO, BSO Postoperative State - Doing well, vitals stable - Encourage use of incentive spirometer - Pain controlled: yes - Hgb POD #1 stable at 12.7 - DVT Proph: SCDs and lovenox - Abx: s/p 24 hours Ancef - Diet: Carb-controlled - IVF: Hep locked T2DM - A1c 10.4% on 11/18 - BGT consistently >300 post-op - Endocrinology consulted, appreciate recs - Dexcom placed 11/26 - Morning Lantus 15u and scheduled Lispro 5u TID AC per endocrinology - Switched from HDSSI to MDSSI per endocrinology - Discussed foods to avoid from menu including fruits, yogurt, oatmeal, rice, etc. HTN - BP well-controlled - Continue home hydrochlorothiazide Principal Problem: Intra-abdominal and pelvic swelling, mass and lump, unspecified site Plan to be discussed with Dr. Bruce Please page the [facility] [employer] Call RES group via Secure Chat for any questions or concerns. Esther Perez MD 11/28/2023, 6:14 AM Associated attestation - Robert Bruce MD - 11/28/2023 7:33 AM EDT Patient rounded with residents. Doing well today. Passing gas. Abdomen is slightly more distended but is soft. Continues to have high blood sugars. Endocrinology is working to try to get them under control. A) Hyperglycemia secondary to diabetes Morbid obesity Uterine leiomyoma Images from the original note were not included. PHYSICAL THERAPY [facility] Treatment Note Name/MRN: Taylor Wesley ([id number]) Date of : 1965 Age: 58 y.o. Room/Bed: 5111/5111 A Discharge Recommendation: Home with assist PRN, Home with Home health PT Equipment Needed: No Other: She has her electric wheelchair here at the hospital. Prior Level of Function ADL Assistance: Needs Assist Ambulation Assistance: Device(s) used: Wheelchair - electric Transfer Assistance: Needs Assist Assessment Patient was up in her own wheelchair for over an hour. She is ready to get back to bed. She had a block, so the transfers today are not painful. She helps guide this PT through the process of getting her back in the bed. Her electric wheelchair was returned to across the room. Patient is slow moving, and less familiar since she is in the hospital, but does get her transfers done with moderate assist. She was back in the bed at the end of the transfer, and made comfortable in the bed. Recommend home with assist upon discharge, and home PT. Subjective Pt is cooperative and pleasant. Pain: Pt denies any current pain. Medical Precautions: No active isolations Proper PPE donned/doffed in accordance with facility standards. Fall Risk: Baxter Fall Risk Score: 55 (High Risk) Precautions/Restrictions: Fall Precautions Overall Cognitive Status: WNL Overall Orientation Status: Oriented x4 Family/Caregiver Present: none Objective Bed Mobility Sit to supine: Mod Assist Rolling to left: Min Assist Scooting: Mod Assist Transfers/Mobility Bed to chair: Mod Assist Extra time. Device(s) used: Wheelchair - electric Balance During Session: Posture: good Sitting - Static: Independent Sitting - Dynamic: Modified Independent Standing - Static: NA Standing - Dynamic: N/A Plan Continue acute PT per plan of care. Safety/Education Safety Safety Devices in place: call light within reach, left in bed, patient at risk for falls, and nurse notified Restraints: No Education Education Given To: patient Education Provided: PT Role, Transfer Training, and Discharge Recommendations Education Method: Verbal Barriers to Learning: None Education Outcome: Demonstrated Understanding Outcome Measures AM-PAC AM-PAC Inpatient Mobility Raw Score (No Stairs) : 10 JH-HLM JH-HLM Score: Transferred to chair/commode Goals Patient Stated Goal: To return home, back to work. Encounter Problems Encounter Problems (Active) Mobility Patient will navigate as needed within the hospital feet with modified independence and electric wheelchair in order to improve safety and independence with mobility. (Progressing) Start: 11/27/23 Transfers Patient will perform bed mobility with min assist in order to improve independence and prepare for out of bed mobility. (Progressing) Start: 11/27/23 Patient will complete functional transfer with least restrictive device with mod assist in order to prepare for ambulation. (Progressing) Start: 11/27/23 Therapy Time Individual Co-treatment Time In 1530 Time Out 1545 Minutes 15 Timed Code Treatment Minutes: 29 Minutes Di Anaya PT Patient was evaluated this afternoon with RN from endocrinology at bedside assisting with Dexcom. BGTs today remain >300. She was sitting in a chair, first time being out of bed since surgery and it felt good. She had no acute complaints. She denies Fever/Chills, Chest Pain, SOB, N/V. Pain is well-controlled. She reports minimal bleeding when dodson catheter was removed this morning, unsure if it was vaginal or urinary. She is passing flatus. She had no questions or concerns. BP 145/83 (BP Location: Left arm, Patient Position: Lying) Pulse 99 Temp 36.4 C (97.5 F) (Temporal) Resp 16 Ht 5' 4 (1.626 m) Wt 130 lb (59 kg) BMI 22.31 kg/m Physical Exam: Gen: NAD, alert and cooperative Resp: No increased WOB Card: Regular rate Ext: No LE edema, no calf tenderness or swelling A&P: Continue inpatient management Images from the original note were not included. PHYSICAL THERAPY [facility] Initial Evaluation Name/MRN: Taylor Wesley ([id number]) Evaluation Date: 11/27/2023 Date of : 1965 Admission Date: 11/26/2023 7:42 AM Age: 58 y.o. Room[facility] Discharge Recommendation: Home with assist PRN, Home with Home health PT Equipment Needed: No Other: She has her electric wheelchair here at the hospital. Assessment IMPRESSION: Taylor Wesley was admitted on 11.26.23 with intra-abdominal and pelvic swelling, mass and lump. She underwent [facility] BSO. She has hemiplegia, SP, and scoliosis. She has been wheelchair bound since age 2.5. She had a stroke at age 2.5. She has left sided residual weakness. Her partner assists her with ADL's and with transfers at baseline. 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 She got up to her wheelchair today with moderate assist, explaining her method to this therapist. She will most likely return home at discharge, with assist as needed. Admitting Diagnosis: intra-abdominal and pelvic swelling mass and lump. Prognosis: good Performance Deficits /Impairments: Increased Pain, Decreased Functional Mobility, Decreased ADL status, Decreased Endurance, Decreased Balance, Decreased Coordination, and Decreased Posture Decision Making: Medium Complexity Subjective Patient is cooperative and pleasant, able to describe her transfer process well. She was up in her electric wheelchair at the end of this evaluation. Pain: RN managing pain. 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 Past Surgical History: Past Surgical History: Procedure Laterality Date ACHILLES TENDON SURGERY Bilateral BACK SURGERY BX OF BREAST, NEEDLE CORE, IMAGE GUIDE (HISTORICAL) Right 02/28/2021 benign DILATION AND CURETTAGE OF UTERUS 09/2023 attempted OTHER SURGICAL HISTORY Bilateral hamstring surgery ROTATOR CUFF REPAIR Right 2014 THUMB SURGERY (HISTORICAL) TOTAL HIP ARTHROPLASTY Left Admission Diagnosis: Patient Active Problem List Diagnosis Date Noted Intra-abdominal and pelvic swelling, mass and lump, unspecified site 11/26/2023 Medical Precautions: No active isolations Proper PPE donned/doffed in accordance with facility standards. Fall Risk: Baxter Fall Risk Score: 55 (High Risk) Precautions/Restrictions: Fall Precautions Family/Caregiver Present: none Overall Cognitive Status: WNL Overall Orientation Status: Oriented x4 Vision: not assessed this session Hearing: normal Social/Functional History Patient admitted from home. Lives With: Significant Other Type of Home: single family home Home Layout: Single Level Home Home Access: Level Entry Bathroom Shower/Tub: Toilet: Standard Home Equipment: wheelchair - electric and strap that she has around her left leg and then up around her neck, it helps he lift the left leg. Homemaking Responsibilities: Needs Assist Receives Help From: Significant other Active Naval Architect Specialist: Yes Prior Level of Function ADL Assistance: Needs Assist Ambulation Assistance: Device(s) used: Wheelchair - electric Transfer Assistance: Needs Assist Objective Lower Extremity Assessment AROM: Impaired: both legs are non-functional PROM: Not assessed this session Strength: Exceptions: very little if any strength in LE's Sensation: Impaired: Balance: Balance During Session: Posture: fair Sitting - Static: Independent Sitting - Dynamic: Independent Standing - Static: unavailable Standing - Dynamic: unavailable Bed Mobility: Supine to sit: Mod Assist Sit to supine: Mod Assist Transfers She does not stand, but slides over to the wheelchair from the bed and back in to the bed , is up in her wheelchair all day. Ambulation Non-ambulatory Outcome Measures AM-PAC How much HELP from another person do you currently need Turning from your back to your side while in a flat bed without using bedrails?: A Little Moving from lying on your back to sitting on the side of a flat bed without using bedrails?: A Lot Moving to and from a bed to a chair (including a wheelchair)?: A Lot Standing up from a chair using your arms (wheelchair or bedside chair)?: A Lot Walking in a hospital room?: Total Stair climbing assessed?: No AM-PAC Inpatient Mobility Raw Score (No Stairs) : 10 JH-HLM JH-HLM Score: Transferred to chair/commode Plan Pt would benefit from skilled acute PT services to address Strengthening, Balance Training, Functional Mobility Training, and Endurance Training. Frequency: 4x/week for 2 weeks Barriers: Pain, Impaired balance, and Lower extremity weakness Safety/Education Safety Safety Devices in place: All fall risk precautions in place, call light within reach, and left up in her wheelchair. Restraints: No Education Education Given To: patient Education Provided: PT Role, Transfer Training, Equipment, and Discharge Recommendations Education Method: Verbal and Demonstration Barriers to Learning: None Education Outcome: Demonstrated Understanding Goals Patient Stated Goal: To return home, back to work. Encounter Problems Encounter Problems (Active) Mobility Patient will navigate as needed within the hospital feet with modified independence and electric wheelchair in order to improve safety and independence with mobility. Start: 11/27/23 Transfers Patient will perform bed mobility with min assist in order to improve independence and prepare for out of bed mobility. Start: 11/27/23 Patient will complete functional transfer with least restrictive device with mod assist in order to prepare for ambulation. Start: 11/27/23 Therapy Time Individual Co-treatment Time In 1330 Time Out 1412 Minutes 42 Timed Code Treatment Minutes: 29 Minutes Di Anaya PT Patient's Physical Therapy Plan of Care supervision is transferred to a [facility] Physical Therapist. Goals and/or treatment plan was established in collaboration with patient/family/other representatives. Images from the original note were not included. [employer] Progress Note Date: 11/27/2023 Time: 6:11 AM Please page the [facility] [employer] Call RES group via Secure Chat for any questions or concerns. Taylor Wesley 58 y.o. female , POD # 1 s/p GERARDO, BSO Patient seen and examined. She has no complaints this AM. Pain is controlled. Patient is tolerating oral intake. Dodson catheter remains in place. She denies any vaginal bleeding. She is not yet passing flatus. She denies Fever/Chills, Chest Pain, SOB, N/V. Vitals: Vitals: 11/26/23 1713 11/26/23 2100 11/27/23 0038 11/27/23 0530 BP: 148/91 119/74 137/74 134/71 BP Location: Left arm Left arm Left arm Patient Position: Sitting Lying Lying Pulse: 108 102 103 93 Resp: 14 19 Temp: 36.3 C (97.3 F) 36.8 C (98.2 F) 36.5 C (97.7 F) 36.5 C (97.7 F) TempSrc: Temporal Temporal Temporal Temporal SpO2: 94% 96% 94% 92% Intake/Output: Current Shift: I/O this shift: In: - Out: 1500 [Urine:1500] Physical Exam: Gen: NAD, alert and cooperative HEENT: Normocephalic, atraumatic, EOMI, MMM Resp: CTABL, no WRR Card: RRR, no murmur Abd: soft, NT/ND, no rebound, no guarding, present BS Incisions: Vertical midline incision with bandage, small area of dried blood in center but otherwise clean and dry Ext: No LE edema, no calf tenderness or swelling Medications: Current Facility-Administered Medications: acetaminophen (Tylenol) tablet 1,000 mg, 1,000 mg, Oral, q6h, Lainey Linda, DO, 1,000 mg at 11/27/23 0549 albuterol 108 (90 Base) MCG/ACT inhaler 2 puff, 2 puff, Inhalation, q6h PRN, Lainey Linda DO ceFAZolin in dextrose 4% (Ancef) IVPB 2,000 mg, 2,000 mg, IntraVENous, q8h, Lainey Linda DO, Last Rate: 0 mL/hr at 11/26/23 2151, 2,000 mg at 11/27/23 0549 dextrose 5 % infusion, 100 mL/hr, IntraVENous, PRN, Di Duque DO dextrose 50 % solution 12.5 g, 12.5 g, IntraVENous, PRN, Di Duque, glipiZIDE (Glucotrol) tablet 5 mg, 5 mg, Oral, BID AC, Camelia Cruzlieper, DO, 5 mg at 11/26/231 glucagon (human recombinant) injection 1 mg, 1 mg, IntraMUSCular, PRN, Di Duque, glucose oral gel 15 g, 15 g, Oral, PRN, Di Duque, DO hydroCHLOROthiazide (HYDRODiuril) tablet 50 mg, 50 mg, Oral, Daily, Lainey Linda DO HYDROmorphone (Dilaudid) injection 0.25 mg, 0.25 mg, IntraVENous, q3h PRN OR HYDROmorphone (Dilaudid) injection 0.5 mg, 0.5 mg, IntraVENous, q3h PRN, Lainey Linda DO ketorolac (Toradol) injection 30 mg, 30 mg, IntraVENous, 4 times per day, 30 mg at 11/27/23 0549 FOLLOWED BY ibuprofen tablet 600 mg, 600 mg, Oral, q6h, Lainey Linda DO Insulin Lispro (Humalog) injection 0-18 Units, 0-18 Units, SubCUTAneous, TID WC, 15 Units at 11/26/23 1700 AND Insulin Lispro (Humalog) injection 0-18 Units, 0-18 Units, SubCUTAneous, Nightly, Di Duque DO, 12 Units at 11/26/23 2118 lactated Ringer's (LR) infusion, 50 mL/hr, IntraVENous, Continuous, Isabel Gonzalez APRN - SUPERINTENDENT [employer], Last Rate: 50 mL/hr at 11/26/23 09, Continued by Anesthesia at 11/26/23902 naloxone (Narcan) injection 0.4 mg, 0.4 mg, IntraVENous, q5 min PRN, Robert Bruce MD ondansetron ODT (Zofran-ODT) disintegrating tablet 4 mg, 4 mg, Oral, q8h PRN OR ondansetron (Zofran) injection 4 mg, 4 mg, IntraVENous, q6h PRN, Lainey Linda, DO oxyCODONE (Roxicodone) immediate release tablet 5 mg, 5 mg, Oral, q4h PRN OR oxyCODONE (Roxicodone) immediate release tablet 10 mg, 10 mg, Oral, q4h PRN, Lainey Linda, DO, 10 mg at 11/26/232122 polyethylene glycol (PEG) 3350 (Miralax) packet 17 g, 17 g, Oral, Daily, Lainey Linda, DO senna-docusate sodium (Senokot-S) 8.6-50 MG tablet 2 tablet, 2 tablet, Oral, Daily PRN, Lainey Linda, DO sodium chloride 0.9 % infusion, 5-250 mL/hr, IntraVENous, PRN, Lainey Linda, DO sodium chloride 0.9% (NS) flush 10 mL, 10 mL, IntraVENous, 2 times per day, Lainey Linda, DO sodium chloride 0.9% (NS) flush 10 mL, 10 mL, IntraVENous, PRN, Lainey Linda, DO Diagnostics: POCT glucose meter Result Date: 11/26/2023 Performed by: [facility], [address] [place] [id number] CLIA ID: [id number] POCT glucose meter Result Date: 11/26/2023 Performed by: [facility], [address] [place] [id number] CLIA ID: [id number] POCT glucose meter Result Date: 11/26/2023 Performed by: [facility], [address] [place] [id number] CLIA ID: [id number] POCT glucose meter Result Date: 11/26/2023 Performed by: [facility], [address] [place] [id number] CLIA ID: [id number] POCT glucose meter Result Date: 11/26/2023 Performed by: [facility], [address] [place] [id number] CLIA ID: [id number] Labs: Admission on 11/26/2023 Component Date Value Ref Range Status Glucose 11/26/2023 270 (H) 70 - 100 mg/dL Final Glucose 11/26/2023 321 (H) 70 - 100 mg/dL Final Glucose 11/26/2023 313 (H) 70 - 100 mg/dL Final Glucose 11/26/2023 356 (H) 70 - 100 mg/dL Final Auto WBC 11/27/2023 13.5 (H) 3.6 - 10.7 10*3/uL Final RBC 11/27/2023 4.36 3.80 - 5.20 10*6/uL Final Hemoglobin 11/27/2023 12.7 11.7 - 16.0 g/dL Final Hematocrit 11/27/2023 37.8 35.0 - 47.0 % Final MCV 11/27/2023 86.7 77.0 - 99.0 fL Final MCH 11/27/2023 29.1 26.0 - 34.0 pg Final MCHC 11/27/2023 33.6 30.5 - 36.0 % Final RDW 11/27/2023 11.9 11.5 - 15.0 % Final Platelets 11/27/2023 306 140 - 440 10*3/uL Final MPV 11/27/2023 10.2 9.0 - 12.7 fL Final Glucose 11/26/2023 321 (H) 70 - 100 mg/dL Final Assessment/Plan: Taylorimani Wesley 58 y.o. female , POD #1 s/p GERARDO, BSO Postoperative State - Doing well, vitals stable - Catheter remains in place, to be removed this AM - Encourage ambulation and use of incentive spirometer - Pain controlled: yes - DVT Proph: Lovenox, SCD's - Labs: Hgb stable at 12.7 - Abx: Ancef x24 hours - Diet: General - IVF: Hep locked - Disposition: Continue inpatient care T2DM - A1c 10.4% on 11/18 - BGT >300 post-op - High dose sliding scale insulin ordered - Given 15 units with dinner, 12 units HS - Continue glipizide - Consider endocrinology consult while inpatient HTN - BP well-controlled - Continue home hydrochlorothiazide Principal Problem: Intra-abdominal and pelvic swelling, mass and lump, unspecified site Plan to be discussed with Dr. Bruce Please page the [facility] [employer] Call RES group via Secure Chat for any questions or concerns. Esther Perez MD 11/27/2023, 6:11 AM Associated attestation - Robert Bruce MD - 11/27/2023 7:14 AM EDT Patient rounded with residents. Discussed surgical findings. Hemoglobin level stable. Pain well-controlled. Still dealing with hyperglycemia. Will ask endocrine to get involved to decrease hyperglycemic status. A) Hyperglycemia associated with diabetes Morbid obesity Uterine leiomyoma Patient was evaluated at the bedside this afternoon. She had no acute complaints this afternoon. She denies Fever/Chills, Chest Pain, SOB, N/V, DEE, VC. Pain is well-controlled. Vitals: 11/26/23 1130 11/26/23 1145 11/26/23 1200 11/26/23 1322 BP: 131/59 135/62 125/68 130/76 BP Location: Left arm Patient Position: Lying Pulse: 86 97 102 97 Resp: 18 16 Temp: 36.4 C (97.5 F) TempSrc: Temporal SpO2: 100% 100% 100% 100% Physical Exam: Gen: NAD, resting comfortably in bed HEENT: Normocephalic, Atraumatic Resp: No increased WOB, no respiratory distress Card: Regular rate Abd: soft, NTND, no rebound, no guarding. Incisions: Midline vertical incision, with small about of strike through and C/D/I A&P: - Patient doing well this afternoon - BGTs elevated after surgery, continue CCD and SSI - Will continue to monitor Di Duque DO 11/26/2023 3:16 PM documented in this encounter [facility] 11-28-2023 Note Formatting of this n ote might be different from the original. TCC PROGRESS NOTE: Pt remains on H5 day two post op GERARDO, BSO. Pt continues to have issues with elevated glucose levels. Endocrine continuing to work with pt on resuming blood glucose control. Pt was also seen by diabetes education. Surgically, pt is doing well. Pt is a hemiplegic and is w/c dependent. She and her are very independent at home. Pt denies any needs from tcc. Anticipate dc to home when blood sugar controlled. [facility] 11-28-2023 Note Formatting of this n ote might be different from the original. TCC PROGRESS NOTE: Pt remains on H5 day two post op GERARDO, BSO. Pt continues to have issues with elevated glucose levels. Endocrine continuing to work with pt on resuming blood glucose control. Pt was also seen by diabetes education. Surgically, pt is doing well. Pt is a hemiplegic and is w/c dependent. She and her are very independent at home. Pt denies any needs from tcc. Anticipate dc to home when blood sugar controlled. [facility] 11-28-2023 Note TCC PROGRESS NOTE: Pt remains on H5 day two post op GERARDO, BSO. Pt continues to have issues with elevated glucose levels. Endocrine continuing to work with pt on resuming blood glucose control. Pt was also seen by diabetes education. Surgically, pt is doing well. Pt is a hemiplegic and is w/c dependent. She and her are very independent at home. Pt denies any needs from tcc. Anticipate dc to home when blood sugar controlled. [facility] 11-27-2023 Consult note Associated Order (s): IP CONSULT TO CHIEF RECORDIST In Patient DIABETES EDUCATION: Patient instructed in the following; Most recent HgbA1C lab result, its interpretation and in the need for optimal glycemic management. Hyperglycemia symptoms DM pathophysiology and natural progression of disease with the loss of beta cells. Nutrition; with attention to Carb/protein/healthy fat balance, emphasizing a regular schedule for meal times. Hypoglycemia sxs, treatment and prevention; The need for prompt recognition of and treatment for. Agrees to have oral glucose readily available at all times. The timing, actions and side effects of ordered oral agent(s) and non insulin injectables Availability of CGMs Placed Dexcom G7 sensor to Right arm posterior Ref: AT-031 EXP:12/2023 Lot #:[id number] Patient instructed on the following; Use of Dexcom including download via smartphone. Difference between fingerstick blood glucose and sensor glucose. The Home Screen displays your glucose reading. It includes your Current Glucose, a Glucose Trend Arrow indicating which way your glucose is going, and a graph of your current and stored glucose readings. Bambi sensor or reader malfunctions. Skin tac/sensor over Site management. Changing next site. Connected to Dexcom Clarity and linked to office The importance of communicate CGM reports and/or glucose log to provider at follow up, The steps in using a glucometer: Obtaining BG sample, correctly, the purpose, proper disposal of sharps, frequency of testing, documentation, target blood sugars and when to call the doctor Effects of steroid use on BG and in the need for the health education coordinator or ordering physician to decrease insulin dosages as steroids are weaned. States understanding of importance of communicating BG results to physician, at regular intervals Pt verbalized good understanding of information given. Denies having any concerns or questions regarding current home regimen (SMBG, taking oral meds, insulin administration). Encouraged to follow up as outpatient Handouts reviewed and given: Survival Skills: Controlling Blood Sugar Book Blood Sugar Log [facility] [employer] 11-27-2023 Note In Patient DIABETES EDUCATION: Patient instructed in the following; Most recent HgbA1C lab result, its interpretation and in the need for optimal glycemic management. Hyperglycemia symptoms DM pathophysiology and natural progression of disease with the loss of beta cells. Nutrition; with attention to Carb/protein/healthy fat balance, emphasizing a regular schedule for meal times. Hypoglycemia sxs, treatment and prevention; The need for prompt recognition of and treatment for. Agrees to have oral glucose readily available at all times. The timing, actions and side effects of ordered oral agent(s) and non insulin injectables Availability of CGMs Placed Dexcom G7 sensor to Right arm posterior Ref: VINCENT-AT-031 EXP:12/2023 Lot #:[id number] Patient instructed on the following; Use of Dexcom including download via smartphone. Difference between fingerstick blood glucose and sensor glucose. The Home Screen displays your glucose reading. It includes your Current Glucose, a Glucose Trend Arrow indicating which way your glucose is going, and a graph of your current and stored glucose readings. Bambi sensor or reader malfunctions. Skin tac/sensor over Site management. Changing next site. Connected to Dexcom [employer] and linked to office The importance of communicate CGM reports and/or glucose log to provider at follow up, The steps in using a glucometer: Obtaining BG sample, correctly, the purpose, proper disposal of sharps, frequency of testing, documentation, target blood sugars and when to call the doctor Effects of steroid use on BG and in the need for the health education coordinator or ordering physician to decrease insulin dosages as steroids are weaned. States understanding of importance of communicating BG results to physician, at regular intervals Pt verbalized good understanding of information given. Denies having any concerns or questions regarding current home regimen (SMBG, taking oral meds, insulin administration). Encouraged to follow up as outpatient Handouts reviewed and given: Survival Skills: Controlling Blood Sugar Book Blood Sugar Log [facility] 11-27-2023 Consult note Associated Order (s): IP CONSULT TO CHIEF RECORDIST In Patient DIABETES EDUCATION: Patient instructed in the following; Most recent HgbA1C lab result, its interpretation and in the need for optimal glycemic management. Hyperglycemia symptoms DM pathophysiology and natural progression of disease with the loss of beta cells. Nutrition; with attention to Carb/protein/healthy fat balance, emphasizing a regular schedule for meal times. Hypoglycemia sxs, treatment and prevention; The need for prompt recognition of and treatment for. Agrees to have oral glucose readily available at all times. The timing, actions and side effects of ordered oral agent(s) and non insulin injectables Availability of CGMs Placed Dexcom G7 sensor to Right arm posterior Ref: VINCENT-AT-031 EXP:12/2023 Lot #:[id number] Patient instructed on the following; Use of Dexcom including download via smartphone. Difference between fingerstick blood glucose and sensor glucose. The Home Screen displays your glucose reading. It includes your Current Glucose, a Glucose Trend Arrow indicating which way your glucose is going, and a graph of your current and stored glucose readings. Bambi sensor or reader malfunctions. Skin tac/sensor over Site management. Changing next site. Connected to Dexcom Clarity and linked to office The importance of communicate CGM reports and/or glucose log to provider at follow up, The steps in using a glucometer: Obtaining BG sample, correctly, the purpose, proper disposal of sharps, frequency of testing, documentation, target blood sugars and when to call the doctor Effects of steroid use on BG and in the need for the health education coordinator or ordering physician to decrease insulin dosages as steroids are weaned. States understanding of importance of communicating BG results to physician, at regular intervals Pt verbalized good understanding of information given. Denies having any concerns or questions regarding current home regimen (SMBG, taking oral meds, insulin administration). Encouraged to follow up as outpatient Handouts reviewed and given: Survival Skills: Controlling Blood Sugar Book Blood Sugar Log Associated Order(s): IP CONSULT TO ENDOCRINOLOGY Department of Internal Medicine Division of Endocrinology, Diabetes, & Metabolism Endocrinology Note Patient Name: Taylor Wesley : 1965 AGE: 58 y.o. Room[facility]: [facility] A Admission Date: 11/26/2023 Visit Date: 11/27/2023 Reason for Endocrine Consult: Uncontrolled T2DM Provider/Team Requesting Consult: Dr. 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 Type of DM: 2 Onset of DM: 2 years ago Home DM Medication Regimen: glimepiride 2mg bid DM control (last A1c/glucose data): 10.6 Ms. Wesley is a 58yoF with a PMHx T2DM, cerebral palsy c/b paraplegia (wheelchair bound) that presented to [facility] 11/25 for GERRADO with BL salpingoophorectomy. Tolerated procedure well. Noted to have persistent hyperglycemia in the 300s despite SSI and home glimepiride, however, so Endocrinology consulted for management. Evaluated patient at bedside. Reports diabetes onset 2 years ago. Managed by PCP. Initially trialed on metformin, but patient did not tolerate. Already struggles with diarrhea chronically and the metformin sent her over the edge. Switched to glimepiride 2mg bid and has been on since. Checks sugars every morning, sometimes multiple times a day. Does not have CGM- is concerned with it staying in place given her paraplegia and need to roll frequently. No hypoglycemia. Lowest blood sugar she can remember lately was in 230s. Averages in about 300s. A1c 10.6% less than two weeks ago. Follows with dietitian for diabetes and weight management. Has her on roughly 40g carbs a day. Would be interested in GLP-1 for diabetes and weight loss management. Has never had pancreatitis. Glucose Date/Time Value Ref Range Status 11/27/2023 07:31 AM 328 (H) 70 - 100 mg/dL Final 11/26/2023 09:04 PM 321 (H) 70 - 100 mg/dL Final 11/26/2023 05:10 PM 356 (H) 70 - 100 mg/dL Final 11/26/2023 01:48 PM 313 (H) 70 - 100 mg/dL Final 11/26/2023 10:38 AM 321 (H) 70 - 100 mg/dL Final 11/26/2023 08:31 AM 270 (H) 70 - 100 mg/dL Final Review of Systems Constitutional: Negative for chills and fever. Gastrointestinal: Positive for diarrhea. Negative for constipation and vomiting. Endocrine: Negative for polydipsia and polyuria. ROS negative except for those mentioned in HPI. OBJECTIVE: Vitals: 11/26/23 1713 11/26/23 2100 11/27/23 0038 11/27/23 0530 BP: 148/91 119/74 137/74 134/71 BP Location: Left arm Left arm Left arm Patient Position: Sitting Lying Lying Pulse: 108 102 103 93 Resp: 14 16 19 19 Temp: 36.3 C (97.3 F) 36.8 C (98.2 F) 36.5 C (97.7 F) 36.5 C (97.7 F) TempSrc: Temporal Temporal Temporal Temporal SpO2: 94% 96% 94% 92% Physical Exam Constitutional: General: She is not in acute distress. Appearance: She is obese. Cardiovascular: Rate and Rhythm: Regular rhythm. Tachycardia present. Pulmonary: Effort: Pulmonary effort is normal. No respiratory distress. Breath sounds: Normal breath sounds. Abdominal: General: Bowel sounds are normal. There is distension. Tenderness: There is abdominal tenderness. Skin: General: Skin is warm and dry. Neurological: Mental Status: She is alert. 24 hour intake/output: Intake/Output Summary (Last 24 hours) at 11/27/2023 0837 Last data filed at 11/27/2023 0609 Gross per 24 hour Intake 1000 ml Output 1600 ml Net -600 ml Diet: Adult diet Regular; 4 carb choices (60 gm/meal) Medications (as per EMR): HomeMeds: Current Outpatient Medications Medication Instructions acetaminophen (Tylenol) 325 MG suppository Rectal albuterol 108 (90 Base) MCG/ACT inhaler 2 puffs, Inhalation, Every 6 hours PRN diazePAM (Valium) 5 MG tablet TAKE 1 TABLET BY MOUTH ONCE DAILY ONE HOUR BEFORE MEDICAL PROCEDURES. MUST LAST 90 DAYS OR LONGER. glimepiride (AMARYL) 2 mg, Oral, 2 times daily indapamide (Lozol) 2.5 MG tablet Daily ondansetron (Zofran) 4 MG tablet Oral, PRN Potassium Chloride (KLOR-CON PO) 20 mEq, Oral, Daily Scheduled Meds:acetaminophen, 1,000 mg, Oral, q6h enoxaparin, 40 mg, SubCUTAneous, Daily glipiZIDE, 5 mg, Oral, BID AC hydroCHLOROthiazide, 50 mg, Oral, Daily ketorolac, 30 mg, IntraVENous, 4 times per day Followed by ibuprofen, 600 mg, Oral, q6h insulin lispro, 0-18 Units, SubCUTAneous, TID WC And insulin lispro, 0-18 Units, SubCUTAneous, Nightly polyethylene glycol (PEG) 3350, 17 g, Oral, Daily sodium chloride 0.9%, 10 mL, IntraVENous, 2 times per day Continuous Infusions:lactated Ringer's, 50 mL/hr, Last Rate: 50 mL/hr (11/26/23 0903) PRN Meds:PRN medications: albuterol, dextrose, dextrose, glucagon (rDNA), glucose, naloxone, ondansetron ODT OR ondansetron, oxyCODONE OR oxyCODONE, senna-docusate sodium, sodium chloride, sodium chloride 0.9% Diagnostic Workup: I reviewed pertinent Laboratory results, Radiographic results, and Other Clinical Notes at the time of today's encounter. Labs: No components found for: LABA1C No components found for: EAG No results found for: NA, K, CL, CO2, BUN, CREATININE, GLUCOSE, CALCIUM No results found for: CHLPL, CHOL No results found for: TRIG No results found for: HDL No results found for: LDLCALC No results found for: VLDL No results found for: CHOLHDLRATIO No results found for: [id number] No results found for: TSH, G2HGDPP, I8SGGAI, THYROIDAB Radiology reportsas per the Radiologist Radiology: POCT glucose meter Result Date: 11/27/2023 [facility]formed [facility]: [facility], [address] [place] [id number] CLIA ID: [id number] POCT glucose meter Result Date: 11/26/2023 [facility]formed by: [facility], [address] [place] [id number] CLIA ID: [id number] POCT glucose meter Result Date: 11/26/2023 Performed by: [facility], [address] [place] [id number] CLIA ID: [id number] POCT glucose meter Result Date: 11/26/2023 [facility]formed by: [facility], [address] [place] [id number] CLIA ID: [id number] POCT glucose meter Result Date: 11/26/2023 Performed by: [facility], [address] [place] [id number] CLIA ID: [id number] POCT glucose meter Result Date: 11/26/2023 Performed by: [facility], [address] [place] [id number] CLIA ID: [id number] History/Other: 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 Past Surgical History: Past Surgical History: Procedure Laterality Date ACHILLES TENDON SURGERY Bilateral BACK SURGERY BX OF BREAST, NEEDLE CORE, IMAGE GUIDE (HISTORICAL) Right 02/28/2021 benign DILATION AND CURETTAGE OF UTERUS 09/2023 attempted OTHER SURGICAL HISTORY Bilateral hamstring surgery ROTATOR CUFF REPAIR Right 2014 THUMB SURGERY (HISTORICAL) TOTAL HIP ARTHROPLASTY Left Allergy(ies): Allergies Allergen Reactions Amoxicillin Other Reaction(s): GI Upset, Nausea Family History: Family History Problem Relation Name Age of Onset Breast cancer Mother Diabetes Maternal Grandmother Social History: Social History Tobacco Use Smoking status: Never Smokeless tobacco: Never Vaping Use Vaping status: Never Used Substance Use Topics Alcohol use: Yes Comment: 1-2 drinks per month Drug use: Never Portions of the information within this encounter were entered using an electronic dictation system. Best attempts were made to edit/proofread the information prior to note completion. Despite the review of information, some errors may remain. If there are questions related to the information contained within the note please contact the signing physician directly. I spent 35 minutes minutes with the pt which involved coordination of care, medical evaluation, review of records, and/or counseling of the pt regarding his/her condition/disease state/prognosis on the date of this note. Associated attestation - Chung Miner MD - 11/27/2023 2:33 PM EDT I have personally performed a face to face diagnostic evaluation on this patient. In addition, I have reviewed the resident's/SED SPECIAL EDUCATION TEACHER/KETTLE HAND's care plan and agree with those findings I have performed a substantive portion of the the medical decision making. My findings are as follows: Patient status post GERARDO Received dexamethasone 4 mg yesterday Blood glucose readings are in the 300s Patient's diabetes was not controlled before surgery She has type 2 diabetes for 2 years Did not tolerate metformin She is on glimepiride that was recently increased by her primary care to 4 mg twice a day She has a glucometer at home and reported her blood glucose readings are in the 200s Has not been consistent with at good diet regimen lately Had COVID few months ago Has cerebral palsy Vitals: BP 157/88 (BP Location: Left arm, Patient Position: Sitting) Pulse 93 Temp 36.9 C (98.5 F) (Temporal) Resp 19 LMP 11/19/2023 (Exact Date) Comment: random bleeding SpO2 97% Constitutional: Well developed Eyes: Conjunctiva clear, Pupils equal Neck: No masses, No thyromegaly Respiratory: No respiratory distress Cardiovascular System: No lower extremity edema Abdomen: obese Psychiatric: Conscious, alert, oriented to time, place and person A/P Type 2 diabetes with hyperglycemia without long-term insulin use Status post total abdominal hysterectomy Morbid obesity Steroid-induced hyperglycemia: Patient received dexamethasone 4 mg after surgery Start Lantus 15 units every morning and Humalog 5 units before meals with correction Obtain blood glucose readings before meals and at bedtime Carb controlled diet Treat hypoglycemia per protocol Target BG on General floors: FBG <140 and random BG <180 Target BG for ICU <180 Patient was counseled about the importance of diabetes management. Patient was counseled about the importance of following a healthy diet and exercise. Patient was counseled about hypoglycemia symptoms and management. For discharge discussed with patient the option of basal insulin and GLP-1 receptor agonist The plan is to discharge patient on Basaglar plus Ozempic Will have patient also on Dexcom G7 Patient was counseled about benefits and side effects related to Ozempic Discussed with certified phlebotomy technician to teach patient how to use insulin and to apply Dexcom G7 Discontinue glimepiride after discharge I spent 75 minutes with the pt which involved in coordination of care, medical evaluation, review of records, and/or counseling of the pt regarding his/her condition/disease state/prognosis on the date of this note. Old records including available PCP, ED notes and or other specialists notes are reviewed. LABs and/or imaging are reviewed as detailed in the resident's/SED SPECIAL EDUCATION TEACHER/KETTLE HAND's note documented in this encounter [facility] 11-27-2023 Note PHYSICAL THERAPY [facility] Initial Evaluation Name/MRN: Taylor Wesley ([id number]) Evaluation Date: 11/27/2023 Date of : 1965 Admission Date: 11/26/2023 7:42 AM Age: 58 y.o. Room/Bed: -5111/-5111 A Discharge Recommendation: Home with assist PRN, Home with Home health PT Equipment Needed: No Other: She has her electric wheelchair here at the hospital. Assessment IMPRESSION: Taylor Wesley was admitted on 11.26.23 with intra-abdominal and pelvic swelling, mass and lump. She underwent GERARDO BSO. She has hemiplegia, SP, and scoliosis. She has been wheelchair bound since age 2.5. She had a stroke at age 2.5. She has left sided residual weakness. Her partner assists her with ADL's and with transfers at baseline. 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 She got up to her wheelchair today with moderate assist, explaining her method to this therapist. She will most likely return home at discharge, with assist as needed. Admitting Diagnosis: intra-abdominal and pelvic swelling mass and lump. Prognosis: good Performance Deficits /Impairments: Increased Pain, Decreased Functional Mobility, Decreased ADL status, Decreased Endurance, Decreased Balance, Decreased Coordination, and Decreased Posture Decision Making: Medium Complexity Subjective Patient is cooperative and pleasant, able to describe her transfer process well. She was up in her electric wheelchair at the end of this evaluation. Pain: RN managing pain. 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 Past Surgical History: Past Surgical History: Procedure Laterality Date ACHILLES TENDON SURGERY Bilateral BACK SURGERY BX OF BREAST, NEEDLE CORE, IMAGE GUIDE (HISTORICAL) Right 02/28/2021 benign DILATION AND CURETTAGE OF UTERUS 09/2023 attempted OTHER SURGICAL HISTORY Bilateral hamstring surgery ROTATOR CUFF REPAIR Right 2014 THUMB SURGERY (HISTORICAL) TOTAL HIP ARTHROPLASTY Left Admission Diagnosis: Patient Active Problem List Diagnosis Date Noted Intra-abdominal and pelvic swelling, mass and lump, unspecified site 11/26/2023 Medical Precautions: No active isolations Proper PPE donned/doffed in accordance with facility standards. Fall Risk: Baxter Fall Risk Score: 55 (High Risk) Precautions/Restrictions: Fall Precautions Family/Caregiver Present: none Overall Cognitive Status: WNL Overall Orientation Status: Oriented x4 Vision: not assessed this session Hearing: normal Social/Functional History Patient admitted from home. Lives With: Significant Other Type of Home: single family home Home Layout: Single Level Home Home Access: Level Entry Bathroom Shower/Tub: Toilet: Standard Home Equipment: wheelchair - electric and strap that she has around her left leg and then up around her neck, it helps he lift the left leg. Homemaking Responsibilities: Needs Assist Receives Help From: Significant other Active Naval Architect Specialist: Yes Prior Level of Function ADL Assistance: Needs Assist Ambulation Assistance: Device(s) used: Wheelchair - electric Transfer Assistance: Needs Assist Objective Lower Extremity Assessment AROM: Impaired: both legs are non-functional PROM: Not assessed this session Strength: Exceptions: very little if any strength in LE's Sensation: Impaired: Balance: Balance During Session: Posture: fair Sitting - Static: Independent Sitting - Dynamic: Independent Standing - Static: unavailable Standing - Dynamic: unavailable Bed Mobility: Supine to sit: Mod Assist Sit to supine: Mod Assist Transfers She does not stand, but slides over to the wheelchair from the bed and back in to the bed , is up in her wheelchair all day. Ambulation Non-ambulatory Outcome Measures AM-PAC How much HELP from another person do you currently need Turning from your back to your side while in a flat bed without using bedrails?: A Little Moving from lying on your back to sitting on the side of a flat bed without using bedrails?: A Lot Moving to and from a bed to a chair (including a wheelchair)?: A Lot Standing up from a chair using your arms (wheelchair or bedside chair)?: A Lot Walking in a hospital room?: Total Stair climbing assessed?: No AM-PAC Inpatient Mobility Raw Score (No Stairs) : 10 JH-HLM JH-HLM Score: Transferred to chair/commode Plan Pt would benefit from skilled acute PT services to address Strengthening, Balance Training, Functional Mobility Training, and Endurance Training. Frequency: 4x/week for 2 weeks Barriers: Pain, Impaired balance, and Lower extremity weakness Safety/Education Safety Safety Devices in place: All fall risk precautions in place, call light within reach, and left up in he (more content not included)... [facility] 11-27-2023 Note Formatting of this n ote might be different from the original. 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 as indicated: Confirmation of Payer with patient/family: Yes Payer Name: Avani Shannon Rumford: No Confirmation of Primary Care Physician: Confirmed PCP Name: Ion Williamson DO Seen in last 2 years?: Yes Primary Caregiver: Self If assistance needed, confirmed caregiver ready, willing and able to care for patient at discharge: Confirmed with: Living Arrangements Current Residence: House Number of Floors 1 Number of Entry Steps: Bed/Bath Levels: Both first floor Facility: Facility Name: Plan to Return: Lives with: Spouse/significant other Support Systems: Spouse/significant other, Family members, Friends/neighbors Activities of Daily Living Ambulation: Total Care (pt has hemiplegia and CP. uses motorized w/c) Bathing/Dressing: Assistance Elimination/Continence/Toileting: Assistance Feeding: Independent Who Assists with Activities of Daily Living: Pt's spouseRayna Instrumental Activities of Daily Living Prescription Coverage: Yes [facility]acy Used[facility] [address] Medication Management: Independent Transportation/Shopping: Independent Transportation Mode: Wheelchair van Needs Assistance with Transportation at Discharge: No (spouse will transport) Meal Preparation: Independent Laundry/Cleaning: Independent Finances/Bill Paying: Independent Communication: Independent Types of Care Services/Equipment Utilized Care Services: Dialysis Type: Durable Medical Equipment: Wheelchair (standard or power), Marquez Lift, Shower Seat DME Provider: Sachin Patient's Goal/Discharge Plan Patient expects to be discharged to: home with spouse Discharge Planning Actions: Continue to follow Patient's Choice Rights and [employer] and Collaborative Relationships Disclosed as Indicated for Post-Acute Care: Interdisciplinary Team Engagement: Social Work Referral for: Additional Information: 58 yo female admitted to with intra-abdominal and pelvic swelling, mass and lump. Pt underwent surgery yesterday, 11/26/23: Total abd hysterectomy and bilateral salpingectomy. Dodson cath to be removed. Advanced to regular diet. Endocrine consult for elevated glucose levels. Pt has hx of hemiplegia and CP. She has been in a w/c since the age of [age]. Met with pt at bedside; explained role of tcc. Pt lives with her spouse, Rayna, who assists pt at home if needed. Pt does use her motorized w/c. She has grab bars, shower chair and marquez lift. Pt to work with PT today. She denies any needs from tcc. Will continue to follow. Akosua Hughes RN [facility] 11-27-2023 Note Formatting of this n ote might be different from the original. 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 as indicated: Confirmation of Payer with patient/family: Yes Payer Name: Avani Táximo Rumford: No Confirmation of Primary Care Physician: Confirmed PCP Name: Ion Williamson, Seen in last 2 years?: Yes Primary Caregiver: Self If assistance needed, confirmed caregiver ready, willing and able to care for patient at discharge: Confirmed with: Living Arrangements Current Residence: House Number of Floors 1 Number of Entry Steps: Bed/Bath Levels: Both first floor Facility: Facility Name: Plan to Return: Lives with: Spouse/significant other Support Systems: Spouse/significant other, Family members, Friends/neighbors Activities of Daily Living Ambulation: Total Care (pt has hemiplegia and CP. uses motorized w/c) Bathing/Dressing: Assistance Elimination/Continence/Toileting: Assistance Feeding: Independent Who Assists with Activities of Daily Living: Pt's spouse, Rayna Instrumental Activities of Daily Living Prescription Coverage: Yes Pharmacy Used: [facility] [address] Medication Management: Independent Transportation/Shopping: Independent Transportation Mode: Wheelchair van Needs Assistance with Transportation at Discharge: No (spouse will transport) Meal Preparation: Independent Laundry/Cleaning: Independent Finances/Bill Paying: Independent Communication: Independent Types of Care Services/Equipment Utilized Care Services: Dialysis Type: Durable Medical Equipment: Wheelchair (standard or power), Marquez Lift, Shower Seat DME Provider: Sachin Patient's Goal/Discharge Plan Patient expects to be discharged to: home with spouse Discharge Planning Actions: Continue to follow Patient's Choice Rights and [employer] and Collaborative Relationships Disclosed as Indicated for Post-Acute Care: Interdisciplinary Team Engagement: Social Work Referral for: Additional Information: 58 yo female admitted to with intra-abdominal and pelvic swelling, mass and lump. Pt underwent surgery yesterday, 11/26/23: Total abd hysterectomy and bilateral salpingectomy. Dodson cath to be removed. Advanced to regular diet. Endocrine consult for elevated glucose levels. Pt has hx of hemiplegia and CP. She has been in a w/c since the age of [age]. Met with pt at bedside; explained role of tcc. Pt lives with her spouse, Rayna, who assists pt at home if needed. Pt does use her motorized w/c. She has grab bars, shower chair and marquez lift. Pt to work with PT today. She denies any needs from tcc. Will continue to follow. Akosua Hughes RN T [facility] 11-27-2023 Consult note Associated Order (s): IP CONSULT TO ENDOCRINOLOGY Department of Internal Medicine Division of Endocrinology, Diabetes, & Metabolism Endocrinology Note Patient Name: Taylor Wesley : 1965 AGE: 58 y.o. Room/Bed: [facility] A Admission Date: 11/26/2023 Visit Date: 11/27/2023 Reason for Endocrine Consult: Uncontrolled T2DM Provider/Team Requesting Consult: Dr. Linda PCP: DO Stephanie Warner Devops: Sarai ASSESSMENT: Uncontrolled T2DM with hyperglycemia PLAN: Since patient insulin naive, start morning lantus 15u and scheduled lispro 5u tid ac Switch HDSSI to MDSSI GMF goal <150 POCT BG ACHS Hypoglycemia management per protocol fisherman helper for new usage of insulin, GLP-1 and CGM Carb controlled diet ANTICIPATED ENDOCRINE HOME GOING RECOMMENDATIONS: Optimized for Discharge from Endocrine standpoint: N/A Home Going Endocrine Rx Recommendations-- Will start basal insulin (insurance prefers Basaglar) and GLP-1 (either Ozempic or Trulicity; unclear insurance coverage per pharmacy, has to be filled at [facility]) Outpt Follow Up-- With PCP SUBJECTIVE/HPI: CHIEF COMPLAINT: No chief complaint on file. Type of DM: 2 Onset of DM: 2 years ago Home DM Medication Regimen: glimepiride 2mg bid DM control (last A1c/glucose data): 10.6 Ms. Wesley is a 58yoF with a PMHx T2DM, cerebral palsy c/b paraplegia (wheelchair bound) that presented to [facility] 11/25 for GERARDO with BL salpingoophorectomy. Tolerated procedure well. Noted to have persistent hyperglycemia in the 300s despite SSI and home glimepiride, however, so Endocrinology consulted for management. Evaluated patient at bedside. Reports diabetes onset 2 years ago. Managed by PCP. Initially trialed on metformin, but patient did not tolerate. Already struggles with diarrhea chronically and the metformin sent her over the edge. Switched to glimepiride 2mg bid and has been on since. Checks sugars every morning, sometimes multiple times a day. Does not have CGM- is concerned with it staying in place given her paraplegia and need to roll frequently. No hypoglycemia. Lowest blood sugar she can remember lately was in 230s. Averages in about 300s. A1c 10.6% less than two weeks ago. Follows with dietitian for diabetes and weight management. Has her on roughly 40g carbs a day. Would be interested in GLP-1 for diabetes and weight loss management. Has never had pancreatitis. Glucose Date/Time Value Ref Range Status 11/27/2023 07:31 AM 328 (H) 70 - 100 mg/dL Final 11/26/2023 09:04 PM 321 (H) 70 - 100 mg/dL Final 11/26/2023 05:10 PM 356 (H) 70 - 100 mg/dL Final 11/26/2023 01:48 PM 313 (H) 70 - 100 mg/dL Final 11/26/2023 10:38 AM 321 (H) 70 - 100 mg/dL Final 11/26/2023 08:31 AM 270 (H) 70 - 100 mg/dL Final Review of Systems Constitutional: Negative for chills and fever. Gastrointestinal: Positive for diarrhea. Negative for constipation and vomiting. Endocrine: Negative for polydipsia and polyuria. ROS negative except for those mentioned in HPI. OBJECTIVE: Vitals: 11/26/23 1713 11/26/23 2100 11/27/23 0038 11/27/23 0530 BP: 148/91 119/74 137/74 134/71 BP Location: Left arm Left arm Left arm Patient Position: Sitting Lying Lying Pulse: 108 102 103 93 Resp: Temp: 36.3 C (97.3 F) 36.8 C (98.2 F) 36.5 C (97.7 F) 36.5 C (97.7 F) TempSrc: Temporal Temporal Temporal Temporal SpO2: 94% 96% 94% 92% Physical Exam Constitutional: General: She is not in acute distress. Appearance: She is obese. Cardiovascular: Rate and Rhythm: Regular rhythm. Tachycardia present. Pulmonary: Effort: Pulmonary effort is normal. No respiratory distress. Breath sounds: Normal breath sounds. Abdominal: General: Bowel sounds are normal. There is distension. Tenderness: There is abdominal tenderness. Skin: General: Skin is warm and dry. Neurological: Mental Status: She is alert. 24 hour intake/output: Intake/Output Summary (Last 24 hours) at 11/27/2023 0837 Last data filed at 11/27/2023 0609 Gross per 24 hour Intake 1000 ml Output 1600 ml Net -600 ml Diet: Adult diet Regular; 4 carb choices (60 gm/meal) Medications (as per EMR): HomeMeds: Current Outpatient Medications Medication Instructions acetaminophen (Tylenol) 325 MG suppository Rectal albuterol 108 (90 Base) MCG/ACT inhaler 2 puffs, Inhalation, Every 6 hours PRN diazePAM (Valium) 5 MG tablet TAKE 1 TABLET BY MOUTH ONCE DAILY ONE HOUR BEFORE MEDICAL PROCEDURES. MUST LAST 90 DAYS OR LONGER. glimepiride (AMARYL) 2 mg, Oral, 2 times daily indapamide (Lozol) 2.5 MG tablet Daily ondansetron (Zofran) 4 MG tablet Oral, PRN Potassium Chloride (KLOR-CON PO) 20 mEq, Oral, Daily Scheduled Meds:acetaminophen, 1,000 mg, Oral, q6h enoxaparin, 40 mg, SubCUTAneous, Daily glipiZIDE, 5 mg, Oral, BID AC hydroCHLOROthiazide, 50 mg, Oral, Daily ketorolac, 30 mg, IntraVENous, 4 times per day Followed by ibuprofen, 600 mg, Oral, q6h insulin lispro, 0-18 Units, SubCUTAneous, TID WC And insulin lispro, 0-18 Units, SubCUTAneous, Nightly polyethylene glycol (PEG) 3350, 17 g, Oral, Daily sodium chloride 0.9%, 10 mL, IntraVENous, 2 times per day Continuous Infusions:lactated Ringer's, 50 mL/hr, Last Rate: 50 mL/hr (11/26/23 0903) PRN Meds:PRN medications: albuterol, dextrose, dextrose, glucagon (rDNA), glucose, naloxone, ondansetron ODT OR ondansetron, oxyCODONE OR oxyCODONE, senna-docusate sodium, sodium chloride, sodium chloride 0.9% Diagnostic Workup: I reviewed pertinent Laboratory results, Radiographic results, and Other Clinical Notes at the time of today's encounter. Labs: No components found for: LABA1C No components found for: EAG No results found for: NA, K, CL, CO2, BUN, CREATININE, GLUCOSE, CALCIUM No results found for: CHLPL, CHOL No results found for: TRIG No results found for: HDL No results found for: LDLCALC No results found for: VLDL No results found for: CHOLHDLRATIO No results found for: XUDW47RCM No results found for: TSH, O4MERAI, S6HZUWN, THYROIDAB Radiology reportsas per the Radiologist Radiology: POCT glucose meter Result Date: 11/27/2023 Performed by: [facility], [address] [place] [id number] CLIA ID: [id number] POCT glucose meter Result Date: 11/26/2023 Performed by: [facility], [address] [place] [id number] CLIA ID: [id number] POCT glucose meter Result Date: 11/26/2023 Performed by: [facility], [address] [place] [id number] CLIA ID: [id number] POCT glucose meter Result Date: 11/26/2023 Performed by: [facility], [address] [place] [id number] CLIA ID: [id number] POCT glucose meter Result Date: 11/26/2023 Performed by: [facility], [address] [place] [id number] CLIA ID: [id number] POCT glucose meter Result Date: 11/26/2023 Performed by: [facility], [address] [place] [id number] CLIA ID: [id number] History/Other: 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 Past Surgical History: Past Surgical History: Procedure Laterality Date ACHILLES TENDON SURGERY Bilateral BACK SURGERY BX OF BREAST, NEEDLE CORE, IMAGE GUIDE (HISTORICAL) Right 02/28/2021 benign DILATION AND CURETTAGE OF UTERUS 09/2023 attempted OTHER SURGICAL HISTORY Bilateral hamstring surgery ROTATOR CUFF REPAIR Right 2014 THUMB SURGERY (HISTORICAL) TOTAL HIP ARTHROPLASTY Left Allergy(ies): Allergies Allergen Reactions Amoxicillin Other Reaction(s): GI Upset, Nausea Family History: Family History Problem Relation Name Age of Onset Breast cancer Mother Diabetes Maternal Grandmother Social History: Social History Tobacco Use Smoking status: Never Smokeless tobacco: Never Vaping Use Vaping status: Never Used Substance Use Topics Alcohol use: Yes Comment: 1-2 drinks per month Drug use: Never Portions of the information within this encounter were entered using an electronic dictation system. Best attempts were made to edit/proofread the information prior to note completion. Despite the review of information, some errors may remain. If there are questions related to the information contained within the note please contact the signing physician directly. I spent 35 minutes minutes with the pt which involved coordination of care, medical evaluation, review of records, and/or counseling of the pt regarding his/her condition/disease state/prognosis on the date of this note. Associated attestation - Chung Miner MD - 11/27/2023 2:33 PM EDT I have personally performed a face to face diagnostic evaluation on this patient. In addition, I have reviewed the resident's/SED SPECIAL EDUCATION TEACHER/KETTLE HAND's care plan and agree with those findings I have performed a substantive portion of the the medical decision making. My findings are as follows: Patient status post GERARDO Received dexamethasone 4 mg yesterday Blood glucose readings are in the 300s Patient's diabetes was not controlled before surgery She has type 2 diabetes for 2 years Did not tolerate metformin She is on glimepiride that was recently increased by her primary care to 4 mg twice a day She has a glucometer at home and reported her blood glucose readings are in the 200s Has not been consistent with at good diet regimen lately Had COVID few months ago Has cerebral palsy Vitals: BP 157/88 (BP Location: Left arm, Patient Position: Sitting) Pulse 93 Temp 36.9 C (98.5 F) (Temporal) Resp 19 LMP 11/19/2023 (Exact Date) Comment: random bleeding SpO2 97% Constitutional: Well developed Eyes: Conjunctiva clear, Pupils equal Neck: No masses, No thyromegaly Respiratory: No respiratory distress Cardiovascular System: No lower extremity edema Abdomen: obese Psychiatric: Conscious, alert, oriented to time, place and person A/P Type 2 diabetes with hyperglycemia without long-term insulin use Status post total abdominal hysterectomy Morbid obesity Steroid-induced hyperglycemia: Patient received dexamethasone 4 mg after surgery Start Lantus 15 units every morning and Humalog 5 units before meals with correction Obtain blood glucose readings before meals and at bedtime Carb controlled diet Treat hypoglycemia per protocol Target BG on General floors: FBG <140 and random BG <180 Target BG for ICU <180 Patient was counseled about the importance of diabetes management. Patient was counseled about the importance of following a healthy diet and exercise. Patient was counseled about hypoglycemia symptoms and management. For discharge discussed with patient the option of basal insulin and GLP-1 receptor agonist The plan is to discharge patient on Basaglar plus Ozempic Will have patient also on Dexcom G7 Patient was counseled about benefits and side effects related to Ozempic Discussed with certified phlebotomy technician to teach patient how to use insulin and to apply Dexcom G7 Discontinue glimepiride after discharge I spent 75 minutes with the pt which involved in coordination of care, medical evaluation, review of records, and/or counseling of the pt regarding his/her condition/disease state/prognosis on the date of this note. Old records including available PCP, ED notes and or other specialists notes are reviewed. LABs and/or imaging are reviewed as detailed in the resident's/SED SPECIAL EDUCATION TEACHER/KETTLE HAND's note [facility] 11-26-2023 Plan of care note The patient is Moderately Unstable - Medium risk of patient condition declining or worsening The patient's goals for the shift include pain management, absence of muscle rigidity. The clinical goals for the shift include maintain patency of urinary catheter. Over the shift, the patient did not make progress toward the following goals. Barriers to progression include decreased appetite. Recommendations to address these barriers include nutritional consult. [facility] 11-26-2023 Note Formatting of this n ote might be different from the original. Report called to REMEDIOS Torres T [facility] 11-26-2023 Note Formatting of this n ote might be different from the original. Report called to REMEDIOS Torres T [facility] 11-26-2023 Note Patient: Taylor Wesley Procedure Summary Date: 11/26/23 Room / Location: [address] Operating Room Anesthesia Start: 902 Anesthesia Stop: 1054 Procedure: TOTAL ABDOMINAL HYSTERECTOMY BILATERAL SALPINGO OOPHORECTOMY (Bilateral: Abdomen) Diagnosis: Intra-abdominal and pelvic swelling, mass and lump, unspecified site Surgeons: Robert Bruce MD Responsible Provider: Kane Farris MD Anesthesia Type: regional, general ASA Status: 3 Anesthesia Type: regional, general Vitals Value Taken Time BP 129/62 11/26/23 1115 Temp 36.8 ?C (98.2 ?F) 11/26/23 1050 Pulse 83 11/26/23 1121 Resp 20 11/26/23 1115 SpO2 100 % 11/26/23 1121 Vitals shown include unfiled device data. Anesthesia Post Evaluation Patient location during evaluation: PACU Patient participation: complete - patient participated Level of consciousness: awake and alert Pain management: satisfactory to patient Airway patency: patent Dental Injury: no Cardiovascular status: acceptable, blood pressure returned to baseline and hemodynamically stable Respiratory status: acceptable and spontaneous ventilation Hydration status: euvolemic Nausea/Vomiting: controlled No notable events documented. Patient can be discharged once all PACU criteria has been met. [facility] 11-26-2023 Note Patient: Taylor Wesley Procedure Summary Date: 11/26/23 Room / Location: [facility] Operating Room Anesthesia Start: 902 Anesthesia Stop: 1054 Procedure: TOTAL ABDOMINAL HYSTERECTOMY BILATERAL SALPINGO OOPHORECTOMY (Bilateral: Abdomen) Diagnosis: Intra-abdominal and pelvic swelling, mass and lump, unspecified site Surgeons: Robert Bruce MD Responsible Provider: Kane Farris MD Anesthesia Type: regional, general ASA Status: 3 Anesthesia Type: regional, general Vitals Value Taken Time BP 129/62 11/26/23 1115 Temp 36.8 ?C (98.2 ?F) 11/26/23 1050 Pulse 83 11/26/23 1121 Resp 0 11/26/23 1111 SpO2 100 % 11/26/23 1121 Vitals shown include unfiled device data. Anesthesia Post Evaluation Patient location during evaluation: PACU Patient participation: complete - patient participated Level of consciousness: awake and alert Pain management: satisfactory to patient Multimodal analgesia pain management approach Airway patency: patent Two or more strategies used to mitigate risk of obstructive sleep apnea Cardiovascular status: acceptable and hemodynamically stable Respiratory status: acceptable Hydration status: acceptable No notable events documented. MIPS #430 PONV Patient received an inhalational anesthetic (4554F) Patient exhibits three or more risk factors for PONV (4556F) Patient received at leaset 2 prophylactic Rx PONV anti-emtic agents of different classes preop and/or intraop (G9775) MIPS # 424 Perioperative Temperature Management Anesthesia time was 60 minutes or longer (4255F) Anesthesai administered was General (inhalational or TIVA) or Neuraxial block (X0424) At least one body temperature greater than 95.8F/35.5C achieved within the 30 mins immediately prior to or the 15 minutes immediately following anesthesia end time (G9771) MIPS #477 Multimodal Pain Management Not emergent case Patient was administered multimodal pain management (two or more drugs and/or interventions excluding systemic opioids) in the periopeartive period occurring at some time between 6 hours prior to anesthesia start time until discharged from PACU (G2148) [facility] #404 Anesthesiology Smoking Abstinence The patient is not a current smoker (e.g. cigarette, cigar, pipe, e-cigarette/vaping/marijuana) If no stop here (XX404) I completed my handoff to the receiving clinician during which we: 1. Identified the patient 2. Identified the responsible provider 3. Reviewed the pertinent medical history 4. Discussed the surgical course 5. Reviewed intra-op anesthesia management and issues during anesthesia 6. Set expectations for post-procedure period 7. Allowed opportunity for questions and acknowledgement of understanding. [facility] 11-26-2023 Note Airway Date/Time: 11/26/2023 9:11 AM Urgency: scheduled Airway not difficult General Information and Staff Patient location during procedure: Procedural Resident/FOUNTAIN BRUSH ASSEMBLER: BARBARA Balderrama CRNA Performed: SRNA Indications and Patient Condition Indications for airway management: anesthesia Sedation level: Asleep Preoxygenated: yes Mask difficulty assessment: 2 - vent by mask + OA or adjuvant +/- NMBA Final Airway Details Final airway type: endotracheal airway Successful airway: ETT Cuffed: yes Successful intubation technique: video laryngoscopy Facilitating devices/methods: intubating stylet Endotracheal tube insertion site: oral Blade: Magna scope Blade size: #3 ETT size (mm): 7.0 Cormack-Lehane Classification: grade I - full view of glottis Placement verified by: chest auscultation and capnometry Measured from: gums ETT to gums (cm): 21 Number of attempts at approach: 1 [facility] 11-26-2023 Note Peripheral Block Time Out: 11/26/2023 9:08 AM Patient location during procedure: Procedural Start time: 11/26/2023 9:08 AM End time: 11/26/2023 9:14 AM Reason for block: at surgeon's request and post-op pain management Staffing Performed: FOUNTAIN BRUSH ASSEMBLER Resident/FOUNTAIN BRUSH ASSEMBLER: BARBARA Wyatt CRNA Preanesthetic Checklist Completed: patient identified, IV checked, site marked, risks and benefits discussed, surgical consent, monitors and equipment checked, pre-op evaluation and timeout performed Region: Truncal Primary: TAP Secondary: Upper rectus Peripheral Block Patient position: supine Prep: ChloraPrep Patient monitoring: heart rate, conveyor belt installer, continuous pulse ox and continuous capnometry O2: ETT/LMA Laterality: bilateral Injection technique: single-shot Guidance: ultrasound guided -image retained in chart, tip of the needle identified by ultraound during injection. Needle Needle: 21G X 110 mm Additional Notes Mixture of 40 ml TAP solution and 20 ml 1.3% Exparel. 40 ml of mixture injected into bilateral TAPs (20 ml on each side). 20 ml of mixture injected into bilateral recti (10 ml on each side). 11/26/2023 9:08 AM Assessment Injection assessment: negative aspiration for heme, no paresthesia on injection and incremental injection Heart rate change: no Slow fractionated injection: yes Required Documentation: Relevant anatomy identified (Nerves, Vessels, Muscles), Negative for blood on aspiration, Local anesthetic injected incrementally with intermittent aspiration every 5 mL, Normal resistance with injection, No EKG changes noted, No symptoms of toxicity, Local anesthetic spread visualized around nerves or plane. and Local anesthetic injected without difficultyMedications pqiQLJYHkaswb-pjpplopefad-pluibfwq ine (TAP) syringe - Injection 40 mL - 11/26/2023 9:08:00 AM bupivacaine liposome (Exparel) 1.3 % injection - Injection 20 mL - 11/26/2023 9:08:00 AM [facility] 11-26-2023 Note Formatting of this n ote might be different from the original. Date of surgery 11/26/2023 Preoperative diagnosis pelvic mass Morbid obesity postoperative diagnosis Uterine tumor of uncertain malignant potential Uterine leiomyoma Procedure GERARDO/BSO with omentectomy Surgeon Teo anesthesia General Description of operation patient identified brought to the operating room and after ministration general anesthesia underwent abdominal perineal vaginal prep and drape a Dodson cath was placed in the bladder compression stockings on a running. Mass performed antibiotics were given. Using a scalpel a midline incision was made sharp divided down through the skin around the umbilicus. Bovie cautery was used to coagulate and divide subcutaneous tissue as well as the fascia. The Jann wound retractor was then placed. The omentum was very densely adherent to the uterus in multiple places. Using the Enseal device several portions of the omentum was removed along with the uterus. Several other adhesions were sharply lysed. The right pelvic sidewall was open the right ureter identified the right ovarian vessels were skeletonized above the ureter coagula the Enseal device and divided the round ligament was coagulated and divided. Similar dissection then repeated on the left side. The bladder was then dissected inferiorly allowing the uterine vessels to be skeletonized clamped cut and tied with curved Sravani's and 0 Vicryl suture transfixion. Cardinal ligaments were serially clamped cut and tied using straight Zeppelin's and 0 Vicryl transfixion suture. The vagina was then opened using the right angle scissors, the uterus cervix tubes ovaries and portion of omentum handed off the field angle sutures were placed in the vaginal cuff followed by interrupted 0 Vicryl [id number]-db-ypvys's in the vagina. Hemostasis was noted pelvis irrigated all incisions were accounted for fascia was then closed using a running #1 PDS in a loop mass closure system followed by subcutaneous interrupted #1 PDS subcutaneous interrupted 3-0 Vicryl in a running 3-0 Monocryl on the skin with Steri-Strips. Blood loss was about 150 cc and she was taken to the cover room in stable condition by anesthesia. Uterus was opened off the field after it was removed from the abdomen the endometrial cavity was very bland with no evidence of endometrial cancer or hyperplasia [facility] 11-26-2023 Note Formatting of this n ote is different from the original. Date: 11/26/2023 Location: [facility] OR Name: Taylor Wesley, : 1965, Diagnosis Pre-op Diagnosis * Intra-abdominal and pelvic swelling, mass and lump, unspecified site [R19.00] Post-op Diagnosis * Intra-abdominal and pelvic swelling, mass and lump, unspecified site [R19.00] Procedures TOTAL ABDOMINAL HYSTERECTOMY BILATERAL SALPINGO OOPHORECTOMY 16941 - DE TOTAL ABDOMINAL HYSTERECT W/WO RMVL TUBE OVARY Surgeons * Robert Bruce - Primary Procedure Summary Anesthesia: General ASA: III Estimated Blood Loss: 150 cc Drains: Urethral Catheter Straight-tip (Active) Specimens ID Source Type Tests Collected By Collected At Frozen? Priority Lab ID 1 Peritoneal Washings Wash NON-GYNECOLOGIC CYTOLOGY Robert J Bruce, MD 11/26/23 0928 No Description: PELVIC WASHINGS 2 Uterus Tissue TISSUE EXAM Robert Bruce MD 11/26/23 1006 No Routine Description: UTERUS CERVIX BILATERAL FALLOPIAN TUBES AND BILATERAL OVARIES AND PORTION OF OMENTUM Staff: Supervising Appraiser: Emily Arana RN Scrub Person: Ana Madrigal RN [place] to Circ: Shoshana Ocampo Sugical Evp Sales Student: Katie Levine Findings: large fibroid Complications: None; patient tolerated the procedure well. Specimens Collected: Order Name Source Comment Collection Info Order Time POTASSIUM WITH MG REFLEX For patients on dialysis to draw potassium day of surgery 11/26/2023 8:23 AM PROTHROMBIN TIME If patient on coumadin within 4 days prior. 11/26/2023 8:23 AM HCG QUALITATIVE URINE Urine, Clean Catch Discontinue this order if: 1. patient is older than 55 years old 2. has had a prior hysterectomy 3. today's surgery is for treatment of known or suspected ectopic or loss. 4. patient has a known intrauterine but this is a needed surgery. 11/26/2023 8:23 AM NON-GYNECOLOGIC CYTOLOGY Peritoneal Washings Collected By: Robert Bruce MD 11/26/2023 9:28 AM TISSUE EXAM Uterus Collected By: Robert Bruce MD 11/26/2023 10:07 AM Wound Class: Class II: Clean-Contaminated Blood Products: None Prophylactic Antibiotics: Procedure appropriate prophylactic antibiotic(s) given within 1 hour of surgical incision (two hours if receiving Vancomycin or flouroquinolone) [facility] Note Formatting of this n ote might be different from the original. Date of surgery 11/26/2023 Preoperative diagnosis pelvic mass Morbid obesity postoperative diagnosis Uterine tumor of uncertain malignant potential Uterine leiomyoma Procedure GERARDO/BSO with omentectomy Surgeon Teo anesthesia General Description of operation patient identified brought to the operating room and after ministration general anesthesia underwent abdominal perineal vaginal prep and drape a Dodson cath was placed in the bladder compression stockings on a running. Mass performed antibiotics were given. Using a scalpel a midline incision was made sharp divided down through the skin around the umbilicus. Bovie cautery was used to coagulate and divide subcutaneous tissue as well as the fascia. The Jann wound retractor was then placed. The omentum was very densely adherent to the uterus in multiple places. Using the Enseal device several portions of the omentum was removed along with the uterus. Several other adhesions were sharply lysed. The right pelvic sidewall was open the right ureter identified the right ovarian vessels were skeletonized above the ureter coagula the Enseal device and divided the round ligament was coagulated and divided. Similar dissection then repeated on the left side. The bladder was then dissected inferiorly allowing the uterine vessels to be skeletonized clamped cut and tied with curved Sravani's and 0 Vicryl suture transfixion. Cardinal ligaments were serially clamped cut and tied using straight Zeppelin's and 0 Vicryl transfixion suture. The vagina was then opened using the right angle scissors, the uterus cervix tubes ovaries and portion of omentum handed off the field angle sutures were placed in the vaginal cuff followed by interrupted 0 Vicryl [id number] in the vagina. Hemostasis was noted pelvis irrigated all incisions were accounted for fascia was then closed using a running #1 PDS in a loop mass closure system followed by subcutaneous interrupted #1 PDS subcutaneous interrupted 3-0 Vicryl in a running 3-0 Monocryl on the skin with Steri-Strips. Blood loss was about 150 cc and she was taken to the cover room in stable condition by anesthesia. Uterus was opened off the field after it was removed from the abdomen the endometrial cavity was very bland with no evidence of endometrial cancer or hyperplasia T [facility] 11-26-2023 Note Formatting of this n ote is different from the original. Date: 11/26/2023 Location: [facility] OR Name: Taylor Wesley, : 1965, Diagnosis Pre-op Diagnosis * Intra-abdominal and pelvic swelling, mass and lump, unspecified site [R19.00] Post-op Diagnosis * Intra-abdominal and pelvic swelling, mass and lump, unspecified site [R19.00] Procedures TOTAL ABDOMINAL HYSTERECTOMY BILATERAL SALPINGO OOPHORECTOMY 98147 - DE TOTAL ABDOMINAL HYSTERECT W/WO RMVL TUBE OVARY Surgeons * Robert Bruce - Primary Procedure Summary Anesthesia: General ASA: III Estimated Blood Loss: 150 cc Drains: Urethral Catheter Straight-tip (Active) Specimens ID Source Type Tests Collected By Collected At Frozen? Priority Lab ID 1 Peritoneal Washings Wash NON-GYNECOLOGIC CYTOLOGY Robert Bruce MD 11/26/23 0928 No Description: PELVIC WASHINGS 2 Uterus Tissue TISSUE EXAM Robert Bruce MD 11/26/23 1006 No Routine Description: UTERUS CERVIX BILATERAL FALLOPIAN TUBES AND BILATERAL OVARIES AND PORTION OF OMENTUM Staff: Supervising Appraiser: Emily Arana RN Scrub Person: Ana Madrigal RN [place] to Circ: Shoshana Ocampo Sugical Evp Sales Student: Katie Levine Findings: large fibroid Complications: None; patient tolerated the procedure well. Specimens Collected: Order Name Source Comment Collection Info Order Time POTASSIUM WITH MG REFLEX For patients on dialysis to draw potassium day of surgery 11/26/2023 8:23 AM PROTHROMBIN TIME If patient on coumadin within 4 days prior. 11/26/2023 8:23 AM HCG QUALITATIVE URINE Urine, Clean Catch Discontinue this order if: 1. patient is older than 55 years old 2. has had a prior hysterectomy 3. today's surgery is for treatment of known or suspected ectopic or loss. 4. patient has a known intrauterine but this is a needed surgery. 11/26/2023 8:23 AM NON-GYNECOLOGIC CYTOLOGY Peritoneal Washings Collected By: Robert Bruce MD 11/26/2023 9:28 AM TISSUE EXAM Uterus Collected By: Robert Bruce MD 11/26/2023 10:07 AM Wound Class: Class II: Clean-Contaminated Blood Products: None Prophylactic Antibiotics: Procedure appropriate prophylactic antibiotic(s) given within 1 hour of surgical incision (two hours if receiving Vancomycin or flouroquinolone) [facility] 11-26-2023 Attending History and physical note H&P reviewed. The patient was examined and there are no changes to the H&P. Source Note - Rachel Zarco, ELECTRIC BRAIN WAVE EQUIPMENT MECHANIC - SUPERINTENDENT AUTOMOTIVE - 11/19/2023 9:30 AM EDT Images from the original note were not included. ADDENDUM: Reviewed abnormal labs drawn in PAT. Sent to surgeon and PCP. Comprehensive Pre Surgical History and Physical ? Name: Taylor Wesley : 1965 (Age-58 y.o.) Date of Service: Pt seen/examined on 11/19/2023 Procedure Information Date/Time: 11/26/23 09 Procedure: TOTAL ABDOMINAL HYSTERECTOMY BILATERAL SALPINGO OOPHORECTOMY (Bilateral: Abdomen) - 1.5 HOURS GENERAL AND TAP BLOCK Location: [facility] OR [address] [place] [address] Operating Room Surgeons: Robert Bruce MD Chief Complaint: Intra-abdominal and pelvic swelling, mass and lump, unspecified site [R19.00] ASSESSMENT/PLAN: Patient is considered low/intermediate risk for this intermediate level 3 risk procedure/surgery with no reducible risk factors. Based on the above evaluation, the benefits of the planned procedure likely exceed the risks. The patient is medically optimized to proceed with the planned procedure without any further cardiopulmonary testing. 1) Intra-abdominal and pelvic swelling, mass and lump, unspecified site [R19.00] - Managed per surgery - History and Physical exam - Anesthesia Lab Protocol Orders - T&S, CBC, BMP, EKG 2) HTN (hypertension) - MEDS: indapamide BP Readings from Last 3 Encounters: 11/19/23 (!) 144/88 10/18/23 119/76 - patient denies chest pain, SOB, dizziness, blurred vision - encouraged lifestyle modification - Managed by PCP 3) DM (diabetes mellitus) - Type II - A1c pending - MEDS: glimepiride - Patient reports compliance to medications - Managed by PCP - Blood glucose goal is <250 DOS - Per PAT protocol; A1c > 9 requires a referral back to PCP/Devops for further optimization prior to surgery. 4) Hemiplegia Cerebral Palsy Scoliosis - WC bound since age 2 5) Anxiety - MEDS: valium PRN - feels controlled on medication - Managed by PCP - Patient may benefit from antianxiety medication DOS 6) Asthma - MEDS: albuterol PRN - Managed by PCP - Denies recent hospitalization - Per patient, feels at baseline - No obvious distress on exam - Continue inhalers/nebulizers day of surgery. - Oxygen therapy - No 7) History of Stroke - at age 2.5 2/2 fever per patient - MEDS: no medical management - deficits: none from stroke - Neurologist: NONE 8) Hypokalemia - on replacement daily Visit Type: Pre-Admission Testing Visit Labs Ordered: YES - PER PAT PROTOCOL Sleep Referral Ordered: NO - NEGATIVE SCREEN PER SLEEP REFERRAL PROTOCOL Total time spent (which include face to face and non face to face encounters) : 45 minutes Toxic drug monitoring/narrow therapeutic index drug monitoring : # Drug name : glimepiride # Route administered : oral # Method of monitoring : labs PAT Protocol referenced includes: 1. Anesthesia Lab Protocol Orders 2. Perioperative Cardiovascular Risk Assessment 3. Anesthesia Assessment 4. Pain Assessment and Acute Pain Service Consult (if appropriate) 5. Medical Clearance/Consult from Internal Medicine (IMS) 6. Shower/Wash Order (for designated surgeries) 7. JAZMINE Screen and Sleep Clinic Referral (if appropriate) History Of Present Illness: 58 y.o. female who we are asked to see/evaluate by Dr Bruce for pre-operative evaluation prior to above procedure. OV Note Dr Bruce 10/18/23 ? Operative Report on 10-01-2023 Operative Report [facility] Medical Records Department [address] [place] [address] Operative Report 10/01/23 1525 MR#: [id number] Acct: [id number] Name: TAYLOR WESLEY Cristóbal Rep #: [id number] : 1965 57 From: Ana Rosa Tolliver DO PCP: Dr. Yenni Williamson DO Status:[facility] Location: [place] [address] Problems Associated Problem List Diagnoses (1) Postmenopausal bleeding: (2) Fibroid uterus: (3) Abnormal uterine bleeding (AUB): Report of Operation Date of Procedure: 10/01/23 Pre-Operative Diagnosis: postmenopausal bleeding, large fibroid uterus Post-Operative Diagnosis: postmenopausal bleeding, large fibroid uterus Surgery/Procedure Performed:: pelvic exam under anesthesia Description of Surgical Findings:: long thin vagina, unable to visualize cervix Surgeon: Ana Rosa Tolliver dieing out machine operator: None Type of Anesthesia: MAC Anesthesiologist: Bishop Keller Specimen's removed: none Estimated Blood Loss (mL): 5cc Description of Procedure: The patient was brought to the operating room. MAC anesthesia was administered and found to be adequate. The patient's legs were placed in stirrups and the patient was prepped and draped in the usual sterile fashion.The procedure was started with the smallest bivalve speculum available then gradually moved up in size until we utilized the largest size available. Still the cervix was not visible. The vaginal tissue was starting to appear bruised and started bleeding from small scrapes in the tissue from all of the speculums. As a last effort, side wall retractors were used and still the cervix was unable to be reached. The abdomen, full of the 21 cm uterus was shifted and fundal pressure was applied. Two fingers were placed in the vagina and I was still unable to reach the cervix. The decision was made to abort the procedure and plan for hysterectomy at a later date. Complications none Admit VTE Documentation VTE Present on Admission: Yes VTE Mechan Device Prophylaxis: SCD's VTE Pharm Prophylaxis ordered?: No 10/01/23 8845 Denies history of NC, CAD, CHF. Denies CP, SOB, dizziness at this time. 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 Authorizing Provider acetaminophen (Tylenol) 325 MG suppository Insert into the rectum. Historical Provider, albuterol 108 (90 Base) MCG/ACT inhaler Inhale 2 puffs every 6 hours as needed for wheezing. Historical Provider, diazePAM (Valium) 5 MG tablet TAKE 1 TABLET BY MOUTH ONCE DAILY ONE HOUR BEFORE MEDICAL PROCEDURES. MUST LAST 90 DAYS OR LONGER. 05/13/23 Historical Provider, glimepiride (Amaryl) 2 MG tablet Take 2 mg by mouth 2 times daily. 08/07/23 Historical Provider, indapamide (Lozol) 2.5 MG tablet 10/15/23 Historical Provider, ondansetron (Zofran) 4 MG tablet Take by mouth. Historical Provider, CHRONIC NARCOTIC USE: No Do you have a history of chronic opioid use? No Allergies: Amoxicillin If patient has opioid allergy, is it okay to take Acetaminophen: N/A Social History: TOBACCO: reports that she has never smoked. She has never used smokeless tobacco. ETOH: reports current alcohol use. Social History Substance and Sexual Activity Drug Use Never Family History: Family History Problem Relation Name Age of Onset Breast cancer Mother Diabetes Maternal Grandmother REVIEW OF SYSTEMS: Review of Systems Constitutional: Negative for chills, fatigue and fever. HENT: Negative for facial swelling, sore throat and trouble swallowing. Respiratory: Negative for cough, chest tightness, shortness of breath and wheezing. Cardiovascular: Negative for chest pain. Gastrointestinal: Positive for abdominal pain (2/2 fibroid). Negative for nausea. Genitourinary: Negative for dysuria, frequency and urgency. Musculoskeletal: Positive for gait problem. Negative for arthralgias, back pain and myalgias. WC bound Neurological: Negative for dizziness, syncope and headaches. Psychiatric/Behavioral: Negative for confusion. Physical Exam: Physical Exam Vitals reviewed. Constitutional: General: She is not in acute distress. Appearance: Normal appearance. She is obese. HENT: Head: Normocephalic and atraumatic. Nose: Nose normal. Mouth/Throat: Mouth: Mucous membranes are moist. Cardiovascular: Rate and Rhythm: Normal rate and regular rhythm. Pulses: Normal pulses. Heart sounds: Normal heart sounds. Pulmonary: Effort: Pulmonary effort is normal. No respiratory distress. Abdominal: Tenderness: There is no abdominal tenderness. Musculoskeletal: General: No swelling. Normal range of motion. Cervical back: Normal range of motion. Right lower leg: No edema. Left lower leg: No edema. Skin: General: Skin is warm and dry. Neurological: General: No focal deficit present. Mental Status: She is alert and oriented to person, place, and time. Gait: Gait abnormal (hemiplegia 2/2 cerebral palsy, WC bound). Psychiatric: Mood and Affect: Mood normal. Vitals: Vitals Value Taken Time BP 144/88 11/19/23 0949 Temp 36.6 C (97.8 F) 11/19/23 0949 Pulse 86 11/19/23 0949 Resp 16 11/19/23 0949 SpO2 98 % 11/19/23 0949 Labs: No results found for: WBC, HGB, HCT, MCV, PLT No results found for: NA, K, CL, CO2, BUN, CREATININE, GLUCOSE, CALCIUM, PROT, BILIRUBINFL, ALKPHOS, AST, ALT, EGFR, GLOB Hugh's Simple Cardiac Risk Index: HUGH'S SIMPLE CARDIAC RISK SCORE: 1 Interpretation: 0 Points Class I 0.5% 1 Point Class II 1.3% 2 Points Class III 3.6% 3+ Points Class IV 9.1% PAT Pain Score: /10 Pain Score: 1 Postop Pain Management Plan (Pain consult ordered?): Pain consult not indicated at this time EKG: Encounter Date: 11/19/23 ECG 12 lead Result Value Heart Rate 85 QRSD Interval 93 QT Interval 378 QTC Interval 451 P [place] 66 QRS [place] 50 T Wave [place] 39 DE Interval 168 Impression Sinus rhythm Low voltage, precordial leads ECHO and EF: None on file No components found for: LVEF, LVEFMODE METS: Patient can not ambulate at baseline 2/2 hemiplegia, denies CP, SOB at rest. Electronically signed by: Rachel Zarco APRN - SUPERINTENDENT AUTOMOTIVE Date: 11/19/2023 at 10:52 AM [employer] Work Phone: 11-26-2023 Note H&P reviewed. The viktor dozier was examined and there are no changes to the H&P. [facility] History and physical note H&P reviewed. The patient was examined and there are no changes to the H&P. Source Note - Rachel Zarco, ELECTRIC BRAIN WAVE EQUIPMENT MECHANIC - SUPERINTENDENT AUTOMOTIVE - 11/19/2023 9:30 AM EDT Images from the original note were not included. ADDENDUM: Reviewed abnormal labs drawn in PAT. Sent to surgeon and PCP. Comprehensive Pre Surgical History and Physical ? Name: Taylor Wesley : 1965 (Age-58 y.o.) Date of Service: Pt seen/examined on 11/19/2023 Procedure Information Date/Time: 11/26/23 0900 Procedure: TOTAL ABDOMINAL HYSTERECTOMY BILATERAL SALPINGO OOPHORECTOMY (Bilateral: Abdomen) - 1.5 HOURS GENERAL AND TAP BLOCK Location: [facility] OR [address] [place] [address] Operating Room Surgeons: Robert Bruce MD Chief Complaint: Intra-abdominal and pelvic swelling, mass and lump, unspecified site [R19.00] ASSESSMENT/PLAN: Patient is considered low/intermediate risk for this intermediate level 3 risk procedure/surgery with no reducible risk factors. Based on the above evaluation, the benefits of the planned procedure likely exceed the risks. The patient is medically optimized to proceed with the planned procedure without any further cardiopulmonary testing. 1) Intra-abdominal and pelvic swelling, mass and lump, unspecified site [R19.00] - Managed per surgery - History and Physical exam - Anesthesia Lab Protocol Orders - T&S, CBC, BMP, EKG 2) HTN (hypertension) - MEDS: indapamide BP Readings from Last 3 Encounters: 11/19/23 (!) 144/88 10/18/23 119/76 - patient denies chest pain, SOB, dizziness, blurred vision - encouraged lifestyle modification - Managed by PCP 3) DM (diabetes mellitus) - Type II - A1c pending - MEDS: glimepiride - Patient reports compliance to medications - Managed by PCP - Blood glucose goal is <250 DOS - Per PAT protocol; A1c > 9 requires a referral back to PCP/Devops for further optimization prior to surgery. 4) Hemiplegia Cerebral Palsy Scoliosis - WC bound since age 2 5) Anxiety - MEDS: valium PRN - feels controlled on medication - Managed by PCP - Patient may benefit from antianxiety medication DOS 6) Asthma - MEDS: albuterol PRN - Managed by PCP - Denies recent hospitalization - Per patient, feels at baseline - No obvious distress on exam - Continue inhalers/nebulizers day of surgery. - Oxygen therapy - No 7) History of Stroke - at age 2.5 2/2 fever per patient - MEDS: no medical management - deficits: none from stroke - Neurologist: NONE 8) Hypokalemia - on replacement daily Visit Type: Pre-Admission Testing Visit Labs Ordered: YES - PER PAT PROTOCOL Sleep Referral Ordered: NO - NEGATIVE SCREEN PER SLEEP REFERRAL PROTOCOL Total time spent (which include face to face and non face to face encounters) : 45 minutes Toxic drug monitoring/narrow therapeutic index drug monitoring : # Drug name : glimepiride # Route administered : oral # Method of monitoring : labs PAT Protocol referenced includes: 1. Anesthesia Lab Protocol Orders 2. Perioperative Cardiovascular Risk Assessment 3. Anesthesia Assessment 4. Pain Assessment and Acute Pain Service Consult (if appropriate) 5. Medical Clearance/Consult from Internal Medicine (IMS) 6. Shower/Wash Order (for designated surgeries) 7. JAZMINE Screen and Sleep Clinic Referral (if appropriate) History Of Present Illness: 58 y.o. female who we are asked to see/evaluate by Dr Bruce for pre-operative evaluation prior to above procedure. OV Note Dr Bruce 10/18/23 ? Operative Report on 10-01-2023 Operative Report [facility] Medical Records Department [address] [place] [address] Operative Report 10/01/23 1525 MR#: [id number] Acct: [id number] Name: TAYLOR WESLEY Rep #: [id number] : 1965 57 From: Ana Rosa Tolliver DO PCP: Dr. Yenni Williamson DO Status:[facility] Location: [place] [address] Problems Associated Problem List Diagnoses (1) Postmenopausal bleeding: (2) Fibroid uterus: (3) Abnormal uterine bleeding (AUB): Report of Operation Date of Procedure: 10/01/23 Pre-Operative Diagnosis: postmenopausal bleeding, large fibroid uterus Post-Operative Diagnosis: postmenopausal bleeding, large fibroid uterus Surgery/Procedure Performed:: pelvic exam under anesthesia Description of Surgical Findings:: long thin vagina, unable to visualize cervix Surgeon: Ana Rosa Tolliver dieing out machine operator: None Type of Anesthesia: MAC Anesthesiologist: Bishop Keller Specimen's removed: none Estimated Blood Loss (mL): 5cc Description of Procedure: The patient was brought to the operating room. MAC anesthesia was administered and found to be adequate. The patient's legs were placed in stirrups and the patient was prepped and draped in the usual sterile fashion.The procedure was started with the smallest bivalve speculum available then gradually moved up in size until we utilized the largest size available. Still the cervix was not visible. The vaginal tissue was starting to appear bruised and started bleeding from small scrapes in the tissue from all of the speculums. As a last effort, side wall retractors were used and still the cervix was unable to be reached. The abdomen, full of the 21 cm uterus was shifted and fundal pressure was applied. Two fingers were placed in the vagina and I was still unable to reach the cervix. The decision was made to abort the procedure and plan for hysterectomy at a later date. Complications none Admit VTE Documentation VTE Present on Admission: Yes VTE Mechan Device Prophylaxis: SCD's VTE Pharm Prophylaxis ordered?: No 10/01/23 0075 Denies history of NC, CAD, CHF. Denies CP, SOB, dizziness at this time. Past Medical History: Past Medical History: No date: Asthma No date: Cerebral palsy (HCC) No date: Diabetes (HCC) No date: History of transfusion No date: Hx of bronchitis No date: Hypertension 11/2023: Intra-abdominal and pelvic swelling, mass and lump, unspecified site No date: Paraplegia (HCC) No date: Scoliosis No date: Stroke ([facility]) Comment: at age 2.5 secondary to fever Past Surgical History: Past Surgical History: No date: ACHILLES TENDON SURGERY; Bilateral No date: BACK SURGERY 02/28/2021: BX OF BREAST, NEEDLE CORE, IMAGE GUIDE (HISTORICAL); Right Comment: benign 09/2023: DILATION AND CURETTAGE OF UTERUS Comment: attempted No date: OTHER SURGICAL HISTORY; Bilateral Comment: hamstring surgery 2015: ROTATOR CUFF REPAIR; Right No date: THUMB SURGERY (HISTORICAL) No date: TOTAL HIP ARTHROPLASTY; Left Medications Prior to Admission: Prior to Admission medications Medication Sig Start Date End Date Taking? Authorizing Provider acetaminophen (Tylenol) 325 MG suppository Insert into the rectum. Historical Provider, albuterol 108 (90 Base) MCG/ACT inhaler Inhale 2 puffs every 6 hours as needed for wheezing. Historical Provider, diazePAM (Valium) 5 MG tablet TAKE 1 TABLET BY MOUTH ONCE DAILY ONE HOUR BEFORE MEDICAL PROCEDURES. MUST LAST 90 DAYS OR LONGER. 05/13/23 Historical Provider, glimepiride (Amaryl) 2 MG tablet Take 2 mg by mouth 2 times daily. 08/07/23 Historical Provider, indapamide (Lozol) 2.5 MG tablet 10/15/23 Historical Provider, ondansetron (Zofran) 4 MG tablet Take by mouth. Historical Provider, CHRONIC NARCOTIC USE: No Do you have a history of chronic opioid use? No Allergies: Amoxicillin If patient has opioid allergy, is it okay to take Acetaminophen: N/A Social History: TOBACCO: reports that she has never smoked. She has never used smokeless tobacco. ETOH: reports current alcohol use. Social History Substance and Sexual Activity Drug Use Never Family History: Family History Problem Relation Name Age of Onset Breast cancer Mother Diabetes Maternal Grandmother REVIEW OF SYSTEMS: Review of Systems Constitutional: Negative for chills, fatigue and fever. HENT: Negative for facial swelling, sore throat and trouble swallowing. Respiratory: Negative for cough, chest tightness, shortness of breath and wheezing. Cardiovascular: Negative for chest pain. Gastrointestinal: Positive for abdominal pain (2/2 fibroid). Negative for nausea. Genitourinary: Negative for dysuria, frequency and urgency. Musculoskeletal: Positive for gait problem. Negative for arthralgias, back pain and myalgias. WC bound Neurological: Negative for dizziness, syncope and headaches. Psychiatric/Behavioral: Negative for confusion. Physical Exam: Physical Exam Vitals reviewed. Constitutional: General: She is not in acute distress. Appearance: Normal appearance. She is obese. HENT: Head: Normocephalic and atraumatic. Nose: Nose normal. Mouth/Throat: Mouth: Mucous membranes are moist. Cardiovascular: Rate and Rhythm: Normal rate and regular rhythm. Pulses: Normal pulses. Heart sounds: Normal heart sounds. Pulmonary: Effort: Pulmonary effort is normal. No respiratory distress. Abdominal: Tenderness: There is no abdominal tenderness. Musculoskeletal: General: No swelling. Normal range of motion. Cervical back: Normal range of motion. Right lower leg: No edema. Left lower leg: No edema. Skin: General: Skin is warm and dry. Neurological: General: No focal deficit present. Mental Status: She is alert and oriented to person, place, and time. Gait: Gait abnormal (hemiplegia 2/2 cerebral palsy, WC bound). Psychiatric: Mood and Affect: Mood normal. Vitals: Vitals Value Taken Time BP 144/88 11/19/23 0949 Temp 36.6 C (97.8 F) 11/19/23 0949 Pulse 86 11/19/23 0949 Resp 16 11/19/23 0949 SpO2 98 % 11/19/23 0949 Labs: No results found for: WBC, HGB, HCT, MCV, PLT No results found for: NA, K, CL, CO2, BUN, CREATININE, GLUCOSE, CALCIUM, PROT, BILIRUBINFL, ALKPHOS, AST, ALT, EGFR, GLOB Hugh's Simple Cardiac Risk Index: HUGH'S SIMPLE CARDIAC RISK SCORE: 1 Interpretation: 0 Points Class I 0.5% 1 Point Class II 1.3% 2 Points Class III 3.6% 3+ Points Class IV 9.1% PAT Pain Score: 03/20 Pain Score: 1 Postop Pain Management Plan (Pain consult ordered?): Pain consult not indicated at this time EKG: Encounter Date: 11/19/23 ECG 12 lead Result Value Heart Rate 85 QRSD Interval 93 QT Interval 378 QTC Interval 451 P [place] 66 QRS [place] 50 T Wave [place] 39 DE Interval 168 Impression Sinus rhythm Low voltage, precordial leads ECHO and EF: None on file No components found for: LVEF, LVEFMODE METS: Patient can not ambulate at baseline 2/2 hemiplegia, denies CP, SOB at rest. Electronically signed by: Rachel Zarco APRN - [place] Date: 11/19/2023 at 10:52 AM documented in this encounter [facility] 11-19-2023 Note Patient: Taylor Wesley Procedure Information Date/Time: 11/26/23 0900 Procedure: TOTAL ABDOMINAL HYSTERECTOMY BILATERAL SALPINGO OOPHORECTOMY (Bilateral: Abdomen) - 1.5 HOURS GENERAL AND TAP BLOCK [facility] [facility] [address] [place] [address] Operating Room Surgeons: Robert Bruce MD Relevant Problems No relevant active problems Past Medical History: Past Medical History: No date: Asthma No date: Diabetes (HCC) No date: History of transfusion No date: Hx of bronchitis No date: Hypertension No date: Paraplegia (HCC) No date: Scoliosis Past Surgical History: Past Surgical History: No date: ACHILLES TENDON SURGERY; Bilateral No date: BACK SURGERY 02/28/2021: BX OF BREAST, NEEDLE CORE, IMAGE GUIDE (HISTORICAL); Right Comment: benign 09/2023: DILATION AND CURETTAGE OF UTERUS Comment: attempted No date: OTHER SURGICAL HISTORY; Bilateral Comment: hamstring surgery 2015: ROTATOR CUFF REPAIR; Right No date: THUMB SURGERY (HISTORICAL) No date: TOTAL HIP ARTHROPLASTY; Left Social History: TOBACCO: reports that she has never smoked. She has never used smokeless tobacco. ETOH: reports current alcohol use. Social History Substance and Sexual Activity Drug Use Never Family History: Family History Problem Relation Name Age of Onset Breast cancer Mother Diabetes Maternal Grandmother Screening: Perimenopausal Clinical information reviewed: Tobacco Allergies Meds Med Hx Surg Hx OB Status Fam Hx Soc Hx Physical Exam Airway Mallampati: III TM distance: <3 FB Neck ROM: full Mouth Open: normalendotracheal tube not in place Cardiovascular Dental (+) Missing Pulmonary Abdominal Anesthesia Plan patient is NPO appropriate Any family history or previous problems with anesthesia no ASA 3 regional and general Any family history or previous problems with anesthesia no The patient is not a current smoker. Anesthetic plan and risks discussed with patient. Use of blood products discussed with who consented to blood products. JAZMINE Screening STOP-Bang Total Score: 3 Labs: No results found for: WBC, HGB, HCT, MCV, PLT No results found for: SODIUM, NA, POTASSIUM, K, CHLORIDE, CL, CO2, BUN, CREATININE, GLUCOSE, CALCIUM, PROT, BILIRUBINFL, ALKPHOS, AST, ALT, EGFR, GLOB Pain Score: 1 No echocardiogram results found for the past 14 days No results found for this or any previous visit. Equipment Requests: Additional Equipment Requests [facility] 11-19-2023 Note ADDENDUM: Reviewed a bnormal labs drawn in [facility]. Sent to surgeon and PCP. Comprehensive Pre Surgical History and Physical ? Name: Taylor Wesley : 1965 (Age-58 y.o.) Date of Service: Pt seen/examined on 11/19/2023 Procedure Information Date/Time: 11/26/23 0900 Procedure: TOTAL ABDOMINAL HYSTERECTOMY BILATERAL SALPINGO OOPHORECTOMY (Bilateral: Abdomen) - 1.5 HOURS GENERAL AND TAP BLOCK Location: [address] Operating Room Surgeons: Robert Bruce MD Chief Complaint: Intra-abdominal and pelvic swelling, mass and lump, unspecified site [R19.00] ASSESSMENT/PLAN: Patient is considered low/intermediate risk for this intermediate level 3 risk procedure/surgery with no reducible risk factors. Based on the above evaluation, the benefits of the planned procedure likely exceed the risks. The patient is medically optimized to proceed with the planned procedure without any further cardiopulmonary testing. 1) Intra-abdominal and pelvic swelling, mass and lump, unspecified site [R19.00] - Managed per surgery - History and Physical exam - Anesthesia Lab Protocol Orders - T&S, CBC, BMP, EKG 2) HTN (hypertension) - MEDS: indapamide BP Readings from Last 3 Encounters: 11/19/23 (!) 144/88 10/18/23 119/76 - patient denies chest pain, SOB, dizziness, blurred vision - encouraged lifestyle modification - Managed by PCP 3) DM (diabetes mellitus) - Type II - A1c pending - MEDS: glimepiride - Patient reports compliance to medications - Managed by PCP - Blood glucose goal is <250 DOS - Per [facility] protocol; A1c > 9 requires a referral back to PCP/Devops for further optimization prior to surgery. 4) Hemiplegia Cerebral Palsy Scoliosis - WC bound since age 2 5) Anxiety - MEDS: valium PRN - feels controlled on medication - Managed by PCP - Patient may benefit from antianxiety medication DOS 6) Asthma - MEDS: albuterol PRN - Managed by PCP - Denies recent hospitalization - Per patient, feels at baseline - No obvious distress on exam - Continue inhalers/nebulizers day of surgery. - Oxygen therapy - No 7) History of Stroke - at age 2.5 2/2 fever per patient - MEDS: no medical management - deficits: none from stroke - Neurologist: NONE 8) Hypokalemia - on replacement daily Visit Type: Pre-Admission Testing Visit Labs Ordered: YES - PER PAT PROTOCOL Sleep Referral Ordered: NO - NEGATIVE SCREEN PER SLEEP REFERRAL PROTOCOL Total time spent (which include face to face and non face to face encounters) : 45 minutes Toxic drug monitoring/narrow therapeutic index drug monitoring : # Drug name : glimepiride # Route administered : oral # Method of monitoring : labs PAT Protocol referenced includes: 1. Anesthesia Lab Protocol Orders 2. Perioperative Cardiovascular Risk Assessment 3. Anesthesia Assessment 4. Pain Assessment and Acute Pain Service Consult (if appropriate) 5. Medical Clearance/Consult from Internal Medicine (IMS) 6. Shower/Wash Order (for designated surgeries) 7. JAZMINE Screen and Sleep Clinic Referral (if appropriate) History Of Present Illness: 58 y.o. female who we are asked to see/evaluate by Dr Bruce for pre-operative evaluation prior to above procedure. OV Note Dr Bruce 10/18/23 ? Operative Report on 10-01-2023 Operative Report [facility] Medical Records Department [address] [facility] [place] [address] Operative Report 10/01/23 1525 MR#: [id number] Acct: [id number] Name: TAYLOR WESLEY Rep #: [id number] : 1965 57 From: Ana Rosa Tolliver DO PCP: Dr. Yenni Williamson, Status:[facility] Location: [place] [address] Problems Associated Problem List Diagnoses (1) Postmenopausal bleeding: (2) Fibroid uterus: (3) Abnormal uterine bleeding (AUB): Report of Operation Date of Procedure: 10/01/23 Pre-Operative Diagnosis: postmenopausal bleeding, large fibroid uterus Post-Operative Diagnosis: postmenopausal bleeding, large fibroid uterus Surgery/Procedure Performed:: pelvic exam under anesthesia Description of Surgical Findings:: long thin vagina, unable to visualize cervix Surgeon: Ana Rosa Tolliver dieing out machine operator: None Type of Anesthesia: MAC Anesthesiologist: Bishop Keller Specimen's removed: none Estimated Blood Loss (mL): 5cc Description of Procedure: The patient was brought to the operating room. MAC anesthesia was administered and found to be adequate. The patient's legs were placed in stirrups and the patient was prepped and draped in the usual sterile fashion.The procedure was started with the smallest bivalve speculum available then gradually moved up in size until we utilized the largest size available. Still the cervix was not visible. The vaginal tissue was starting to appear bruised and started bleeding from small scrapes (more content not included)... [facility] 11-19-2023 Note ADDENDUM: Reviewed a bnormal labs drawn in PAT. Sent to surgeon and PCP. Comprehensive Pre Surgical History and Physical ? Name: Taylor Wesley : 1965 (Age-58 y.o.) Date of Service: Pt seen/examined on 11/19/2023 Procedure Information Date/Time: 11/26/23 0900 Procedure: TOTAL ABDOMINAL HYSTERECTOMY BILATERAL SALPINGO OOPHORECTOMY (Bilateral: Abdomen) - 1.5 HOURS GENERAL AND TAP BLOCK Location: [address] Operating Room Surgeons: Robert Bruce MD Chief Complaint: Intra-abdominal and pelvic swelling, mass and lump, unspecified site [R19.00] ASSESSMENT/PLAN: Patient is considered low/intermediate risk for this intermediate level 3 risk procedure/surgery with no reducible risk factors. Based on the above evaluation, the benefits of the planned procedure likely exceed the risks. The patient is medically optimized to proceed with the planned procedure without any further cardiopulmonary testing. 1) Intra-abdominal and pelvic swelling, mass and lump, unspecified site [R19.00] - Managed per surgery - History and Physical exam - Anesthesia Lab Protocol Orders - T&S, CBC, BMP, EKG 2) HTN (hypertension) - MEDS: indapamide BP Readings from Last 3 Encounters: 11/19/23 (!) 144/88 10/18/23 119/76 - patient denies chest pain, SOB, dizziness, blurred vision - encouraged lifestyle modification - Managed by PCP 3) DM (diabetes mellitus) - Type II - A1c pending - MEDS: glimepiride - Patient reports compliance to medications - Managed by PCP - Blood glucose goal is <250 DOS - Per PAT protocol; A1c > 9 requires a referral back to PCP/Devops for further optimization prior to surgery. 4) Hemiplegia Cerebral Palsy Scoliosis - WC bound since age 2 5) Anxiety - MEDS: valium PRN - feels controlled on medication - Managed by PCP - Patient may benefit from antianxiety medication DOS 6) Asthma - MEDS: albuterol PRN - Managed by PCP - Denies recent hospitalization - Per patient, feels at baseline - No obvious distress on exam - Continue inhalers/nebulizers day of surgery. - Oxygen therapy - No 7) History of Stroke - at age 2.5 2/2 fever per patient - MEDS: no medical management - deficits: none from stroke - Neurologist: NONE 8) Hypokalemia - on replacement daily Visit Type: Pre-Admission Testing Visit Labs Ordered: YES - PER PAT PROTOCOL Sleep Referral Ordered: NO - NEGATIVE SCREEN PER SLEEP REFERRAL PROTOCOL Total time spent (which include face to face and non face to face encounters) : 45 minutes Toxic drug monitoring/narrow therapeutic index drug monitoring : # Drug name : glimepiride # Route administered : oral # Method of monitoring : labs PAT Protocol referenced includes: 1. Anesthesia Lab Protocol Orders 2. Perioperative Cardiovascular Risk Assessment 3. Anesthesia Assessment 4. Pain Assessment and Acute Pain Service Consult (if appropriate) 5. Medical Clearance/Consult from Internal Medicine (IMS) 6. Shower/Wash Order (for designated surgeries) 7. JAZMINE Screen and Sleep Clinic Referral (if appropriate) History Of Present Illness: 58 y.o. female who we are asked to see/evaluate by Dr Bruce for pre-operative evaluation prior to above procedure. OV Note Dr Bruce 10/18/23 ? Operative Report on 10-01-2023 Operative Report [facility] Medical Records Department [address] [place] [address] Operative Report 10/01/23 1525 MR#: [id number] Acct: [id number] Name: TAYLOR WESLEY Rep #: [id number] : 1965 57 From: Ana Rosa Tolliver DO PCP: Dr. Yenni Williamson DO Status:[facility] Location: [place] [address] Problems Associated Problem List Diagnoses (1) Postmenopausal bleeding: (2) Fibroid uterus: (3) Abnormal uterine bleeding (AUB): Report of Operation Date of Procedure: 10/01/23 Pre-Operative Diagnosis: postmenopausal bleeding, large fibroid uterus Post-Operative Diagnosis: postmenopausal bleeding, large fibroid uterus Surgery/Procedure Performed:: pelvic exam under anesthesia Description of Surgical Findings:: long thin vagina, unable to visualize cervix Surgeon: Ana Rosa Tolliver dieing out machine operator: None Type of Anesthesia: MAC Anesthesiologist: Bishop Keller Specimen's removed: none Estimated Blood Loss (mL): 5cc Description of Procedure: The patient was brought to the operating room. MAC anesthesia was administered and found to be adequate. The patient's legs were placed in stirrups and the patient was prepped and draped in the usual sterile fashion.The procedure was started with the smallest bivalve speculum available then gradually moved up in size until we utilized the largest size available. Still the cervix was not visible. The vaginal tissue was starting to appear bruised and started bleeding from small scrapes (more content not included)... [facility] 10-21-2023 Telephone encounter Note error [facility] 10-21-2023 Miscellaneous Notes error documented in this encounter [facility] 2023 Telephone encounter Note PAT: 09.10.2023 at 9:30 am SX: .17.4 at 9 am arrival at 7 am Post op 10.04.2024 at 8:30 am Folder and instructions given. [facility] 2023 Miscellaneous Notes PAT: 09.10.2023 at 9:30 am SX: .17.4 at 9 am arrival at 7 am Post op 10.04.2024 at 8:30 am Folder and instructions given. documented in this encounter [facility] 2023 History of Present illness Narrative Images from the original note were not included. HPI: Taylor Wesley is a pleasant 57 y.o. female 0 who presents in consultation from Dr. Vanessa for further evaluation and management of persistent perimenopausal postmenopausal bleeding. She initiallypresented with continued vaginal bleeding over the last 2 to 3 years. Patient states she is to have very regular menstrual cycles but over the last several years has she has been having intermittent bleeding, she also has several year history of abdominal and pelvic pain. She feels a pinching sensation in her abdomen, has been noticing increasing urinary frequency as well as abdominal distention and occasional shortness of breath. Underwent attempted D&C but was unable to reach the cervix due to patient's anatomy. Underwent ultrasound that shows a large uterus measuring 21 cm with a 4.8 mm endometrial stripe. Patient is wheelchair-bound. Has had orthopedic surgery on her left hip. Denies any history of intra-abdominal surgery. Denies any history of NC DVT or pulmonary embolism. Denies any sudden onset of pain or bleeding. Denies any adenopathy or unexpected weight loss Past Medical History: Diagnosis Date Diabetes (HCC) Paraplegia (HCC) Past Surgical History: Procedure Laterality Date BACK SURGERY BX OF BREAST, NEEDLE CORE, IMAGE GUIDE (HISTORICAL) Right 02/28/2021 benign DILATION AND CURETTAGE OF UTERUS 09/2023 attempted THUMB SURGERY (HISTORICAL) TOTAL HIP ARTHROPLASTY Left Family History Problem Relation Name Age of Onset Breast cancer Mother Diabetes Maternal Grandmother Social History Socioeconomic History Marital status: Unknown Tobacco Use Smoking status: Never Smokeless tobacco: Never Substance and Sexual Activity Alcohol use: Yes Comment: social Drug use: Never Current Outpatient Medications Medication Sig Dispense Refill acetaminophen (Tylenol) 325 MG suppository Insert into the rectum. albuterol 108 (90 Base) MCG/ACT inhaler Inhale 2 puffs every 6 hours as needed for wheezing. diazePAM (Valium) 5 MG tablet TAKE 1 TABLET BY MOUTH ONCE DAILY ONE HOUR BEFORE MEDICAL PROCEDURES. MUST LAST 90 DAYS OR LONGER. glimepiride (Amaryl) 2 MG tablet Take 2 mg by mouth 2 times daily. indapamide (Lozol) 2.5 MG tablet ondansetron (Zofran) 4 MG tablet Take by mouth. No current facility-administered medications for this visit. Allergies as of 2023 - Reviewed 2023 Allergen Reaction Noted Amoxicillin 08/09/2014 Review of Systems: Review of Systems Constitutional: Negative for appetite change and unexpected weight change. Respiratory: Positive for shortness of breath. Gastrointestinal: Positive for abdominal distention and abdominal pain. Genitourinary: Positive for menstrual problem, pelvic pain and vaginal bleeding. Hematological: Negative for adenopathy. BP 119/76 Pulse 101 Ht 1.499 m (4' 11) Wt 91.6 kg (202 lb) BMI 40.80 kg/m Physical Exam: Physical Exam Vitals and nursing note reviewed. Exam conducted with a international editorial producer present. Constitutional: Appearance: She is obese. Cardiovascular: Rate and Rhythm: Normal rate and regular rhythm. Pulmonary: Effort: Pulmonary effort is normal. Breath sounds: Normal breath sounds. Abdominal: General: Abdomen is protuberant. A surgical scar is present. There is distension. Palpations: There is mass. Tenderness: There is abdominal tenderness. Comments: Well-healed right flank incision from a rib surgery Neurological: Mental Status: She is alert. Psychiatric: Mood and Affect: Mood normal. Behavior: Behavior normal. Ultrasound as well as EMR report has been reviewed from the referring physician. Labs: No components found for: CBC No components found for: CMP Pathology: : ASSESSMENT/PLAN: Diagnosis Plan 1. Pelvic mass in female 2. Abnormal uterine bleeding (AUB) 3. Pelvic pain in female Most likely uterine fibroid, doubt uterine sarcoma as patients symptoms have been present for several years. Recommend proceeding with GERARDO/BSO possible staging. Discussed risk of major abdominal surgery to include bleeding infection damage to other organs. Total time spent on day of service with coordination of surgical scheduling [id number] counseling with patient as well as review of EMR was 35 minutes documented in this encounter [facility] 2023 Note HPI: Taylor Wesley is a pleasant 57 y.o. female 0 who presents in consultation from Dr. Vanessa for further evaluation and management of persistent perimenopausal postmenopausal bleeding. She initiallypresented with continued vaginal bleeding over the last 2 to 3 years. Patient states she is to have very regular menstrual cycles but over the last several years has she has been having intermittent bleeding, she also has several year history of abdominal and pelvic pain. She feels a pinching sensation in her abdomen, has been noticing increasing urinary frequency as well as abdominal distention and occasional shortness of breath. Underwent attempted D&C but was unable to reach the cervix due to patient's anatomy. Underwent ultrasound that shows a large uterus measuring 21 cm with a 4.8 mm endometrial stripe. Patient is wheelchair-bound. Has had orthopedic surgery on her left hip. Denies any history of intra-abdominal surgery. Denies any history of NC DVT or pulmonary embolism. Denies any sudden onset of pain or bleeding. Denies any adenopathy or unexpected weight loss Past Medical History: Diagnosis Date Diabetes (HCC) Paraplegia (HCC) Past Surgical History: Procedure Laterality Date BACK SURGERY BX OF BREAST, NEEDLE CORE, IMAGE GUIDE (HISTORICAL) Right 02/28/2021 benign DILATION AND CURETTAGE OF UTERUS 09/2023 attempted THUMB SURGERY (HISTORICAL) TOTAL HIP ARTHROPLASTY Left Family History Problem Relation Name Age of Onset Breast cancer Mother Diabetes Maternal Grandmother Social History Socioeconomic History Marital status: Unknown Tobacco Use Smoking status: Never Smokeless tobacco: Never Substance and Sexual Activity Alcohol use: Yes Comment: social Drug use: Never Current Outpatient Medications Medication Sig Dispense Refill acetaminophen (Tylenol) 325 MG suppository Insert into the rectum. albuterol 108 (90 Base) MCG/ACT inhaler Inhale 2 puffs every 6 hours as needed for wheezing. diazePAM (Valium) 5 MG tablet TAKE 1 TABLET BY MOUTH ONCE DAILY ONE HOUR BEFORE MEDICAL PROCEDURES. MUST LAST 90 DAYS OR LONGER. glimepiride (Amaryl) 2 MG tablet Take 2 mg by mouth 2 times daily. indapamide (Lozol) 2.5 MG tablet ondansetron (Zofran) 4 MG tablet Take by mouth. No current facility-administered medications for this visit. Allergies as of 2023 - Reviewed 2023 Allergen Reaction Noted Amoxicillin 08/09/2014 Review of Systems: Review of Systems Constitutional: Negative for appetite change and unexpected weight change. Respiratory: Positive for shortness of breath. Gastrointestinal: Positive for abdominal distention and abdominal pain. Genitourinary: Positive for menstrual problem, pelvic pain and vaginal bleeding. Hematological: Negative for adenopathy. BP 119/76 Pulse 101 Ht 1.499 m (4' 11) Wt 91.6 kg (202 lb) BMI 40.80 kg/m? Physical Exam: Physical Exam Vitals and nursing note reviewed. Exam conducted with a international editorial producer present. Constitutional: Appearance: She is obese. Cardiovascular: Rate and Rhythm: Normal rate and regular rhythm. Pulmonary: Effort: Pulmonary effort is normal. Breath sounds: Normal breath sounds. Abdominal: General: Abdomen is protuberant. A surgical scar is present. There is distension. Palpations: There is mass. Tenderness: There is abdominal tenderness. Comments: Well-healed right flank incision from a rib surgery Neurological: Mental Status: She is alert. Psychiatric: Mood and Affect: Mood normal. Behavior: Behavior normal. Ultrasound as well as EMR report has been reviewed from the referring physician. Labs: No components found for: CBC No components found for: CMP Pathology: : ASSESSMENT/PLAN: Diagnosis Plan 1. Pelvic mass in female 2. Abnormal uterine bleeding (AUB) 3. Pelvic pain in female Most likely uterine fibroid, doubt uterine sarcoma as patients symptoms have been present for several years. Recommend proceeding with GERARDO/BSO possible staging. Discussed risk of major abdominal surgery to include bleeding infection damage to other organs. Total time spent on day of service with coordination of surgical scheduling [id number] counseling with patient as well as review of EMR was 35 minutes [facility] 10-16-2023 Telephone encounter Note Name of caller: Rayna Contact phone number: [phone] Relationship to Patient: spouse Provider: teo Practice: [facility] Chief Complaint/Reason for Call: patients spouse would like a callback to schedule the patients new patient appointment due to 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 They have a referral for N93.9 (ICD-10-CM) - Abnormal uterine and vaginal bleeding, unspecified D25.9 (ICD-10-CM) - Leiomyoma of uterus, unspecified G80.8 (ICD-10-CM) - Other cerebral palsy (HCC) N95.0 (ICD-10-CM) - Postmenopausal bleeding Please advise and thank you Best time of day caller can be reached: any Patient advised that office/PCP has 24-48 business hours to return their call: No [facility] 10-16-2023 Miscellaneous Notes Name of caller: Rayna Contact phone number: [phone] Relationship to Patient: spouse Provider: teo Practice: [facility] Chief Complaint/Reason for Call: patients spouse would like a callback to schedule the patients new patient appointment due to 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 They have a referral for N93.9 (ICD-10-CM) - Abnormal uterine and vaginal bleeding, unspecified D25.9 (ICD-10-CM) - Leiomyoma of uterus, unspecified G80.8 (ICD-10-CM) - Other cerebral palsy (HCC) N95.0 (ICD-10-CM) - Postmenopausal bleeding Please advise and thank you Best time of day caller can be reached: any Patient advised that office/PCP has 24-48 business hours to return their call: No documented in this encounter [facility] 06-25-2023 Note [facility] Pap Smear Specimen Adequacy June 25, 2023 9:50am Comment . Satisfactory for evaluation. Endocervical and/or squamous metaplasticcells (endocervical component) are present. Comment on above: Satisfactory for joanna luation. Endocervical and/or squamous metaplasticcells (endocervical component) are present. 06-25-2023 Note [facility] Pap Smear Specimen Adequacy June 25, 2023 9:50am Comment . Satisfactory for evaluation. Endocervical and/or squamous metaplasticcells (endocervical component) are present. Comment on above: Satisfactory for joanna luation. Endocervical and/or squamous metaplasticcells (endocervical component) are present. 06-25-2023 Note [facility] Pap Smear Specimen Adequacy June 25, 2023 9:50am Comment . Satisfactory for evaluation. Endocervical and/or squamous metaplasticcells (endocervical component) are present. Comment on above: Satisfactory for joanna luation. Endocervical and/or squamous metaplasticcells (endocervical component) are present. 06-14-2023 Note HNO ID: [id number] Author: VICKY MARTINEZ RT(Win) Service: ? Author Type: Technologist Type: Progress Notes Filed: 06/14/2023 09:20 Note Text: Radiology Service Progress Note PATIENT NAME: Taylor Wesley DATE OF SERVICE: June 14, 2023 TIME: 9:20 AM PATIENT IDENTITY VERIFICATION COMPLETED USING TWO (2) IDENTIFIERS: Name and Date of confirmed by patient verbally. FALL SCREENING: Has the patient had 2 falls in the last year or 1 fall with injury or currently using an Ambulatory Assistive Device (Walker, Cane, Wheelchair, Crutches, etc.)? Yes, Patient High Risk for Falls What interventions were put in place to prevent falls during this visit? Increased Observations by Caregivers PATIENT GENDER DATA: Female. status: : No status: NO. PATIENT RELEVANT IMPLANT DATA REVIEWED: Not Applicable PATIENT PRESENTS WITH AN IMPLANTABLE OR ATTACHED APPAREL MERCHANDISER: No RADIOLOGY DEPARTMENT: Mammography PERIPHERAL IV DATA: Not applicable SIGNED BY: JERICA Thapa) June 14, 2023 9:20 AM [facility] 06-14-2023 History of Presen t illness Narrative Radiology Service Progress Note PATIENT NAME: Taylor Wesley DATE OF SERVICE: June 14, 2023 TIME: 9:20 AM PATIENT IDENTITY VERIFICATION COMPLETED USING TWO (2) IDENTIFIERS: Name and Date of confirmed by patient verbally. FALL SCREENING: Has the patient had 2 falls in the last year or 1 fall with injury or currently using an Ambulatory Assistive Device (Walker, Cane, Wheelchair, Crutches, etc.)? Yes, Patient High Risk for Falls What interventions were put in place to prevent falls during this visit? Increased Observations by Caregivers PATIENT GENDER DATA: Female. status: : No status: NO. PATIENT RELEVANT IMPLANT DATA REVIEWED: Not Applicable PATIENT PRESENTS WITH AN IMPLANTABLE OR ATTACHED APPAREL MERCHANDISER: No RADIOLOGY DEPARTMENT: Mammography PERIPHERAL IV DATA: Not applicable SIGNED BY: RT Alanis(Win) June 14, 2023 9:20 AM documented in this encounter [facility] 02-08-2023 Miscellaneous Notes I spoke with her and she is aware. We will schedule 6 month US at her next visit. Please notify patient US probably benign. 6 month follow up recommended. Order placed for US. She is scheduled to see [facility] in May 2023. Jazmin Zazueta MD documented in this encounter [facility] 01-25-2023 Note HNO ID: [id number] Author: Marycruz Laughlin RT(R) Service: ? Author Type: Technologist Type: Progress Notes Filed: 01/25/2023 10:05 AM Note Text: Radiology Service Progress Note PATIENT NAME: Taylor Wesley DATE OF SERVICE: January 25, 2023 TIME: 10:05 AM PATIENT IDENTITY VERIFICATION COMPLETED USING TWO (2) IDENTIFIERS: Name and Date of confirmed by patient verbally. FALL SCREENING: Has the patient had 2 falls in the last year or 1 fall with injury or currently using an Ambulatory Assistive Device (Walker, Cane, Wheelchair, Crutches, etc.)? No PATIENT GENDER DATA: Female. status: : No status: NO. PATIENT RELEVANT IMPLANT DATA REVIEWED: Not Applicable RADIOLOGY DEPARTMENT: Ultrasound PERIPHERAL IV DATA: Not applicable SIGNED BY: RT Keyanna(R) January 25, 2023 10:05 AM [facility] 01-04-2023 Note HNO ID: [id number] Author: Jazmin Zazueta MD Service: ? Author Type: Physician Type: Progress Notes Filed: 01/04/2023 9:47 AM Note Text: Jazmin Zazueta MD [facility] [address] [place], [place] [id number] SUBJECTIVE Chief Complaint: Patient presents with: Breast Problem: Patient presents for a new LT axilla mass. Patient confirms palpability, as well as discomfort and itching. Patient denies any nipple abnormalities or nipple discharge. . HPI Taylor Wesley is a 57 year old female here today for evaluation of tender axillary lump on the left. Patient is high risk and has history of calcifications in right breast. Patient noted tender lump after shaving. Nursing Notes: Karen Hoyos MA 01/04/2023 9:28 AM Signed Taylor Wesley is a 57 year old female who presents for Breast Problem (Patient presents for a new LT axilla mass. Patient confirms palpability, as well as discomfort and itching. Patient denies any nipple abnormalities or nipple discharge. ) Karen Hoyos MA No question data found. Review of Systems Constitutional: Negative for fever, malaise/fatigue and weight loss. Breast: See HPI PAST MEDICAL HISTORY Diagnosis Date Paraplegia (HCC) Type 2 diabetes mellitus (HCC) Wheelchair bound PAST SURGICAL HISTORY Procedure Laterality Date BACK SURGERY HX BX OF BREAST; INCISIONAL Right 02/28/2021 Benign PAST SURGICAL HISTORY OF Thumb surgery TOTAL HIP REPLACEMENT Left Social History Tobacco Use Smoking status: Never Smokeless tobacco: Never Vaping Use Vaping Use: Never used Substance Use Topics Alcohol use: Yes Comment: occasionally Drug use: Never FAMILY HISTORY Problem Relation Age of Onset Breast Cancer Mother 43 at 45 Diabetes Maternal Grandmother Ovarian cancer No Family History The ROS, medical, surgical, family, and social history were reviewed by Jazmin Zazueta MD ALLERGIES Allergen Reactions Amoxicillin GI Upset Current Outpatient Medications Medication Sig ONETOUCH VERIO TEST STRIPS test strip USE TO TEST BLOOD SUGAR TWICE DAILY acetaminophen (TYLENOL) 325 mg tablet Take 2 tablets by mouth as needed. albuterol HFA (PROVENTIL HFA, VENTOLIN HFA) 90 mcg/actuation inhaler Inhale 2 Puffs as instructed as needed. Albuterol Sulfate 1.25 mg/3 mL nebulizer solution Use 1 Ampule via nebulizer as needed. ondansetron orally disintegrating (ZOFRAN ODT) 4 mg disintegrating tablet Take 1 tablet by mouth every 6 hours as needed. diazePAM (VALIUM) 5 mg tablet as needed for anxiety (02/07/21 procedure). glimepiride (AMARYL) 2 mg tablet Take 1 tablet by mouth twice daily with meals. indapamide (LOZOL) 2.5 mg tablet Take 1 tablet by mouth once daily. No current facility-administered medications for this visit. OBJECTIVE BP 135/83 Pulse 77 Ht 149.9 cm (4' 11) Wt 86.3 kg (190 lb 3.2 oz) BMI 38.42 kg/m? BMI 38.42 kg/(m2) Physical Exam Neck: Thyroid: No thyromegaly. Chest: Breasts: Breasts are symmetrical. Right: No inverted nipple, mass, nipple discharge, skin change or tenderness. Left: No inverted nipple, mass, nipple discharge, skin change or tenderness. Lymphadenopathy: Head: Right side of head: No submental, submandibular or tonsillar adenopathy. Left side of head: No submental, submandibular or tonsillar adenopathy. Cervical: No cervical adenopathy. Upper Body: Right upper body: No supraclavicular or axillary adenopathy. Left upper body: No supraclavicular or axillary adenopathy. Neurological: Mental Status: She is alert and oriented to person, place, and time. Plan ASSESSMENT/PLAN Unspecified lump in axillary tail of the left breast Taylor Wesley is a 57 year old female here for evaluation of a new problem. High risk for breast cancer. History of US guided biopsy of right breast mass associated with calcification 02/28/2021. 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 Right breast calcs that are being monitored. Today, she is concerned about a left axilary lump that is tender. Nothing suspicious on clinical exam. Offered reassurance. Warm compresses and NSAIDs. Schedule for left US first available. Will notify of results. Genetics negative for pathologic variant. VUS in CDH1. Lifetime risk 30.3% TC v8 I have recommended she undergo high risk screening. According to the NCCN guidelines, this includes monthly self breast exams, a clinical exam every 6-12 months and annual screening mammograms and MRIs. Cannot do breast MRI due to decreased mobility. Will monitor with mammograms. Mutually agreed no risk reduction medication due to potential side effects. Keep follow up in 6 months with bilateral mammograms and appointment with [facility]. Follow up: Return for left US first available. Keep appointment with [facility] as scheduled. Jazmin Zazueta MD 01/04/2023 9:30 AM Medical Decision Making: Problems: Mode (more content not included)... [facility] 01-04-2023 History of Presen t illness Narrative Images from the original note were not included. Jazmin Zazueta MD [facility] [address] [place] [address] SUBJECTIVE Chief Complaint: Patient presents with: Breast Problem: Patient presents for a new LT axilla mass. Patient confirms palpability, as well as discomfort and itching. Patient denies any nipple abnormalities or nipple discharge. . HPI Taylor Wesley is a 57 year old female here today for evaluation of tender axillary lump on the left. Patient is high risk and has history of calcifications in right breast. Patient noted tender lump after shaving. Nursing Notes: Karen Hoyos MA 01/04/2023 9:28 AM Signed Taylor Wesley is a 57 year old female who presents for Breast Problem (Patient presents for a new LT axilla mass. Patient confirms palpability, as well as discomfort and itching. Patient denies any nipple abnormalities or nipple discharge. ) Karen Hoyos MA No question data found. Review of Systems Constitutional: Negative for fever, malaise/fatigue and weight loss. Breast: See HPI PAST MEDICAL HISTORY Diagnosis Date Paraplegia (HCC) Type 2 diabetes mellitus (HCC) Wheelchair bound PAST SURGICAL HISTORY Procedure Laterality Date BACK SURGERY HX BX OF BREAST; INCISIONAL Right 02/28/2021 Benign PAST SURGICAL HISTORY OF Thumb surgery TOTAL HIP REPLACEMENT Left Social History Tobacco Use Smoking status: Never Smokeless tobacco: Never Vaping Use Vaping Use: Never used Substance Use Topics Alcohol use: Yes Comment: occasionally Drug use: Never FAMILY HISTORY Problem Relation Age of Onset Breast Cancer Mother 43 at 45 Diabetes Maternal Grandmother Ovarian cancer No Family History The ROS, medical, surgical, family, and social history were reviewed by Jazmin Zazueta MD ALLERGIES Allergen Reactions Amoxicillin GI Upset Current Outpatient Medications Medication Sig ONETOUCH VERIO TEST STRIPS test strip USE TO TEST BLOOD SUGAR TWICE DAILY acetaminophen (TYLENOL) 325 mg tablet Take 2 tablets by mouth as needed. albuterol HFA (PROVENTIL HFA, VENTOLIN HFA) 90 mcg/actuation inhaler Inhale 2 Puffs as instructed as needed. Albuterol Sulfate 1.25 mg/3 mL nebulizer solution Use 1 Ampule via nebulizer as needed. ondansetron orally disintegrating (ZOFRAN ODT) 4 mg disintegrating tablet Take 1 tablet by mouth every 6 hours as needed. diazePAM (VALIUM) 5 mg tablet as needed for anxiety (02/07/21 procedure). glimepiride (AMARYL) 2 mg tablet Take 1 tablet by mouth twice daily with meals. indapamide (LOZOL) 2.5 mg tablet Take 1 tablet by mouth once daily. No current facility-administered medications for this visit. OBJECTIVE BP 135/83 Pulse 77 Ht 149.9 cm (4' 11) Wt 86.3 kg (190 lb 3.2 oz) BMI 38.42 kg/m BMI 38.42 kg/(m^2) Physical Exam Neck: Thyroid: No thyromegaly. Chest: Breasts: Breasts are symmetrical. Right: No inverted nipple, mass, nipple discharge, skin change or tenderness. Left: No inverted nipple, mass, nipple discharge, skin change or tenderness. Lymphadenopathy: Head: Right side of head: No submental, submandibular or tonsillar adenopathy. Left side of head: No submental, submandibular or tonsillar adenopathy. Cervical: No cervical adenopathy. Upper Body: Right upper body: No supraclavicular or axillary adenopathy. Left upper body: No supraclavicular or axillary adenopathy. Neurological: Mental Status: She is alert and oriented to person, place, and time. Plan ASSESSMENT/PLAN Unspecified lump in axillary tail of the left breast Taylor Wesley is a 57 year old female here for evaluation of a new problem. High risk for breast cancer. History of US guided biopsy of right breast mass associated with calcification 02/28/2021. 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 Right breast calcs that are being monitored. Today, she is concerned about a left axilary lump that is tender. Nothing suspicious on clinical exam. Offered reassurance. Warm compresses and NSAIDs. Schedule for left US first available. Will notify of results. Genetics negative for pathologic variant. VUS in CDH1. Lifetime risk 30.3% TC v8 I have recommended she undergo high risk screening. According to the NCCN guidelines, this includes monthly self breast exams, a clinical exam every 6-12 months and annual screening mammograms and MRIs. Cannot do breast MRI due to decreased mobility. Will monitor with mammograms. Mutually agreed no risk reduction medication due to potential side effects. Keep follow up in 6 months with bilateral mammograms and appointment with [facility]. Follow up: Return for left US first available. Keep appointment with [facility] as scheduled. Jazmin Zazueta MD 01/04/2023 9:30 AM Medical Decision Making: Problems: Moderate: New problem with uncertain prognosis and 2+ stable chronic illnesses Data: Unique test result(s) reviewed: 1 Unique test(s) ordered: 1 Risk: Minimal: Minimal risk from testing/treatment Medical Decision Making Level: 3 - Low documented in this encounter [facility] 01-04-2023 Nurse Note Taylor Wesley is a 57 year old female who presents for Breast Problem (Patient presents for a new LT axilla mass. Patient confirms palpability, as well as discomfort and itching. Patient denies any nipple abnormalities or nipple discharge. ) Karen Hoyos MA documented in this encounter [facility] 11-09-2022 Note HNO ID: [id number] Author: Jazmin Zazueta MD Service: ? Author Type: Physician Type: Progress Notes Filed: 11/09/2022 12:44 PM Note Text: Jazmin Zazueta MD [facility] [address] [place], [place] [id number] SUBJECTIVE Chief Complaint: Patient presents with: Follow Up Tests Results . HPI Taylor Wesley is a 57 year old female here for high risk follow up. History of US guided biopsy of right breast mass associated with calcification 02/28/2021. 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 Mammograms on 04/27/22 showed calcs in right breast. Heterogeneously dense breast tissue. Right mammogram on 11/02/22 limited but BIRADS 2. She denies palpating any breast masses or axillary adenopathy. No skin or nipple changes. No nipple discharge. Nursing Notes: Carmen Beltran NA 11/09/2022 9:36 AM Signed Patient presents for follow up after imaging. Denies any new concerns. ALISSON Freed AGE AT [place] 12 AGE AT FIRST NA FAMILY HISTORY OF BREAST CANCER Yes (IF YES) NUMBER OF FIRST DEGREE RELATIVES WITH BREAST CANCER 1 PREVIOUS BREAST BIOPSIES Yes RACE -[place] Review of Systems Constitutional: Negative for fever, malaise/fatigue and weight loss. Breast: See HPI PAST MEDICAL HISTORY Diagnosis Date - Paraplegia (HCC) - Type 2 diabetes mellitus (HCC) - Wheelchair bound PAST SURGICAL HISTORY Procedure Laterality Date - BACK SURGERY HX - BX OF BREAST; INCISIONAL Right 02/28/2021 Benign - PAST SURGICAL HISTORY OF Thumb surgery - TOTAL HIP REPLACEMENT Left Social History Tobacco Use - Smoking status: Never - Smokeless tobacco: Never Vaping Use - Vaping Use: Never used Substance Use Topics - Alcohol use: Yes Comment: occasionally - Drug use: Never FAMILY HISTORY Problem Relation Age of Onset - Breast Cancer Mother 43 at 45 - Diabetes Maternal Grandmother - Ovarian cancer No Family History The ROS, medical, surgical, family, and social history were reviewed by Jazmin Zazueta MD ALLERGIES Allergen Reactions - Amoxicillin GI Upset Current Outpatient Medications Medication Sig - ONETOUCH VERIO TEST STRIPS test strip USE TO TEST BLOOD SUGAR TWICE DAILY - acetaminophen (TYLENOL) 325 mg tablet Take 2 tablets by mouth as needed. - albuterol HFA (PROVENTIL HFA, VENTOLIN HFA) 90 mcg/actuation inhaler Inhale 2 Puffs as instructed as needed. - Albuterol Sulfate 1.25 mg/3 mL nebulizer solution Use 1 Ampule via nebulizer as needed. - ondansetron orally disintegrating (ZOFRAN ODT) 4 mg disintegrating tablet Take 1 tablet by mouth every 6 hours as needed. - diazePAM (VALIUM) 5 mg tablet as needed for anxiety (02/07/21 procedure). - glimepiride (AMARYL) 2 mg tablet Take 1 tablet by mouth twice daily with meals. - indapamide (LOZOL) 2.5 mg tablet Take 1 tablet by mouth once daily. No current facility-administered medications for this visit. OBJECTIVE BP 124/80 Pulse 76 Ht 149.9 cm (4' 11) Wt 87.1 kg (192 lb) BMI 38.78 kg/m? BMI 38.78 kg/(m2) Physical Exam Neck: Thyroid: No thyromegaly. Chest: Breasts: Breasts are symmetrical. Right: No inverted nipple, mass, nipple discharge, skin change or tenderness. Left: No inverted nipple, mass, nipple discharge, skin change or tenderness. Lymphadenopathy: Head: Right side of head: No submental, submandibular or tonsillar adenopathy. Left side of head: No submental, submandibular or tonsillar adenopathy. Cervical: No cervical adenopathy. Upper Body: Right upper body: No supraclavicular or axillary adenopathy. Left upper body: No supraclavicular or axillary adenopathy. Neurological: Mental Status: She is alert and oriented to person, place, and time. Plan ASSESSMENT/PLAN At high risk for breast cancer Taylor Wesley is a 57 year old female here for follow up. History of US guided biopsy of right breast mass associated with calcification 02/28/2021. 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 Right breast calcs appear stable. Nothing suspicious on clinical exam. Genetics negative for pathologic variant. VUS in CDH1. Lifetime risk 30.3% TC v8 I have recommended she undergo high risk screening. According to the NCCN guidelines, this includes monthly self breast exams, a clinical exam every 6-12 months and annual screening mammograms and MRIs. Cannot do breast MRI due to decreased mobility. Will monitor with mammograms. Mutually agreed no risk reduction medication due to potential side effects. Follow up in 6 months with bilateral mammograms and appointment with [facility]. Follow up: No follow-ups on file. Jazmin Zazueta MD 11/08/2022 1:49 PM [facility] 11-09-2022 Nurse Note Patient presents for follow up after imaging. Denies any new concerns. ALISSON Freed documented in this encounter [facility] 11-09-2022 History of Presen t illness Narrative Images from the original note were not included. Jazmin Zazueta MD [facility] [address] [place] [address] SUBJECTIVE Chief Complaint: Patient presents with: Follow Up Tests Results . HPI Taylor Wesley is a 57 year old female here for high risk follow up. History of US guided biopsy of right breast mass associated with calcification 02/28/2021. 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 Mammograms on 04/27/22 showed calcs in right breast. Heterogeneously dense breast tissue. Right mammogram on 11/02/22 limited but BIRADS 2. She denies palpating any breast masses or axillary adenopathy. No skin or nipple changes. No nipple discharge. Nursing Notes: Carmen Beltran NA 11/09/2022 9:36 AM Signed Patient presents for follow up after imaging. Denies any new concerns. ALISSON Freed AGE AT [place] 12 AGE AT FIRST NA FAMILY HISTORY OF BREAST CANCER Yes (IF YES) NUMBER OF FIRST DEGREE RELATIVES WITH BREAST CANCER 1 PREVIOUS BREAST BIOPSIES Yes RACE -[place] Review of Systems Constitutional: Negative for fever, malaise/fatigue and weight loss. Breast: See HPI PAST MEDICAL HISTORY Diagnosis Date Paraplegia (HCC) Type 2 diabetes mellitus (HCC) Wheelchair bound PAST SURGICAL HISTORY Procedure Laterality Date BACK SURGERY HX BX OF BREAST; INCISIONAL Right 02/28/2021 Benign PAST SURGICAL HISTORY OF Thumb surgery TOTAL HIP REPLACEMENT Left Social History Tobacco Use Smoking status: Never Smokeless tobacco: Never Vaping Use Vaping Use: Never used Substance Use Topics Alcohol use: Yes Comment: occasionally Drug use: Never FAMILY HISTORY Problem Relation Age of Onset Breast Cancer Mother 43 at 45 Diabetes Maternal Grandmother Ovarian cancer No Family History The ROS, medical, surgical, family, and social history were reviewed by Jazmin Zazueta MD ALLERGIES Allergen Reactions Amoxicillin GI Upset Current Outpatient Medications Medication Sig ONETOUCH VERIO TEST STRIPS test strip USE TO TEST BLOOD SUGAR TWICE DAILY acetaminophen (TYLENOL) 325 mg tablet Take 2 tablets by mouth as needed. albuterol HFA (PROVENTIL HFA, VENTOLIN HFA) 90 mcg/actuation inhaler Inhale 2 Puffs as instructed as needed. Albuterol Sulfate 1.25 mg/3 mL nebulizer solution Use 1 Ampule via nebulizer as needed. ondansetron orally disintegrating (ZOFRAN ODT) 4 mg disintegrating tablet Take 1 tablet by mouth every 6 hours as needed. diazePAM (VALIUM) 5 mg tablet as needed for anxiety (02/07/21 procedure). glimepiride (AMARYL) 2 mg tablet Take 1 tablet by mouth twice daily with meals. indapamide (LOZOL) 2.5 mg tablet Take 1 tablet by mouth once daily. No current facility-administered medications for this visit. OBJECTIVE BP 124/80 Pulse 76 Ht 149.9 cm (4' 11) Wt 87.1 kg (192 lb) BMI 38.78 kg/m BMI 38.78 kg/(m^2) Physical Exam Neck: Thyroid: No thyromegaly. Chest: Breasts: Breasts are symmetrical. Right: No inverted nipple, mass, nipple discharge, skin change or tenderness. Left: No inverted nipple, mass, nipple discharge, skin change or tenderness. Lymphadenopathy: Head: Right side of head: No submental, submandibular or tonsillar adenopathy. Left side of head: No submental, submandibular or tonsillar adenopathy. Cervical: No cervical adenopathy. Upper Body: Right upper body: No supraclavicular or axillary adenopathy. Left upper body: No supraclavicular or axillary adenopathy. Neurological: Mental Status: She is alert and oriented to person, place, and time. Plan ASSESSMENT/PLAN At high risk for breast cancer Taylor Wesley is a 57 year old female here for follow up. History of US guided biopsy of right breast mass associated with calcification 02/28/2021. 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 Right breast calcs appear stable. Nothing suspicious on clinical exam. Genetics negative for pathologic variant. VUS in CDH1. Lifetime risk 30.3% TC v8 I have recommended she undergo high risk screening. According to the NCCN guidelines, this includes monthly self breast exams, a clinical exam every 6-12 months and annual screening mammograms and MRIs. Cannot do breast MRI due to decreased mobility. Will monitor with mammograms. Mutually agreed no risk reduction medication due to potential side effects. Follow up in 6 months with bilateral mammograms and appointment with [facility]. Follow up: No follow-ups on file. Jazmin Zazueta MD 11/08/2022 1:49 PM documented in this encounter [facility] 04-27-2022 Miscellaneous Notes [facility] [address] [place] [address] April 27, 2022 PID: [id number] Taylor Wesley [address] [id number] Dear Ms. Wesley, Your recent breast imaging examination performed on 04/27/2022 showed an area that we believe is probably benign (not cancer). A six month follow-up is recommended to ensure your breast health. Please call [phone] to make an appointment for these tests if you have not already done so. You must have an order/prescription from your physician when calling to schedule your appointment. If your order/prescription is not electronic, you must bring the hard copy with you on the day of your exam to avoid delays. Early detection of cancer is very important. We also understand recommendations regarding breast cancer screening are controversial. Please discuss with your primary care provider which strategy is best for you and whether a mammogram is right for you. Your imaging studies and report will be kept on file at [facility] as part of your permanent medical record and are available for your continuing care. Thank you for allowing us to help in meeting your health care needs. Sincerely, Dr. Ledezma Interpreting Radiologist [facility] (# mo Follow-up) documented in this encounter [facility] 10-19-2021 Note HNO ID: [id number] Author: Megan Conklin, DO Service: ? Author Type: Physician Type: Progress Notes Filed: 10/19/2021 1:23 PM Note Text: Taylor Wesley 56 year old female seen today for The primary encounter diagnosis was Type 2 diabetes mellitus with other specified complication, without long-term current use of insulin ([facility]). Diagnoses of Hypokalemia and Essential hypertension were also pertinent to this visit. HPI: Diabetes: A1c 6.1 K 3.2- eating super foods per nutrition Kidney function normal Amaryl 2 mg BID - no low blood sugars Hypokalemia: - has potassium 20 mg daily prn Has plan for mammogram every 6 months Current Outpatient Medications on File Prior to Visit Medication Sig ONETOUCH VERIO TEST STRIPS test strip USE TO TEST BLOOD SUGAR TWICE DAILY acetaminophen (TYLENOL) 325 mg tablet Take 2 tablets by mouth as needed. albuterol HFA (PROVENTIL HFA, VENTOLIN HFA) 90 mcg/actuation inhaler Inhale 2 Puffs as instructed as needed. Albuterol Sulfate 1.25 mg/3 mL nebulizer solution Use 1 Ampule via nebulizer as needed. ondansetron orally disintegrating (ZOFRAN ODT) 4 mg disintegrating tablet Take 1 tablet by mouth every 6 hours as needed. potassium chloride ER (K-DUR, KLOR-CON) 20 mEq tablet Take 1 tablet by mouth as needed. glimepiride (AMARYL) 2 mg tablet Take 2 mg by mouth twice daily with meals. indapamide (LOZOL) 2.5 mg tablet Take 2.5 mg by mouth once daily. diazePAM (VALIUM) 5 mg tablet as needed for anxiety (02/07/21 procedure). No current facility-administered medications on file prior to visit. HISTORIES FAMILY HISTORY Problem Relation Age of Onset Breast Cancer Mother 43 at 45 Ovarian cancer No Family History PAST MEDICAL HISTORY Diagnosis Date Paraplegia (HCC) Type 2 diabetes mellitus (HCC) Wheelchair bound PAST SURGICAL HISTORY Procedure Laterality Date BACK SURGERY HX BX OF BREAST; INCISIONAL Right 02/28/2021 Benign PAST SURGICAL HISTORY OF Thumb surgery TOTAL HIP REPLACEMENT Left Social History Tobacco Use Smoking status: Never Smokeless tobacco: Never Vaping Use Vaping Use: Never used Substance Use Topics Alcohol use: Yes Comment: occasionally Drug use: Never Review of Systems Constitutional: Negative for appetite change, chills and fever. Respiratory: Negative for cough and shortness of breath. Cardiovascular: Negative for chest pain, palpitations and leg swelling. Gastrointestinal: Negative for abdominal pain, blood in stool, constipation, diarrhea, nausea and vomiting. Endocrine: Negative for polydipsia and polyphagia. Genitourinary: Negative for dysuria, hematuria and urgency. Neurological: Negative for dizziness, light-headedness and headaches. 10/19/21 1254 BP: 148/78 BP Site: Left Arm BP Position: Sitting BP Cuff Size: Regular Adult Pulse: 91 Resp: 16 Temp: 36.3 ?C (97.3 ?F) TempSrc: Temporal SpO2: 96% Physical Exam Constitutional: General: She is not in acute distress. Appearance: She is not ill-appearing. Comments: In wheelchair HENT: Head: Normocephalic and atraumatic. Cardiovascular: Rate and Rhythm: Normal rate and regular rhythm. Pulses: Normal pulses. Heart sounds: Normal heart sounds. No murmur heard. No friction rub. No gallop. Pulmonary: Effort: Pulmonary effort is normal. Breath sounds: Normal breath sounds. No wheezing, rhonchi or rales. Musculoskeletal: Right lower leg: No edema. Left lower leg: No edema. Neurological: Mental Status: She is alert. ASSESSMENT and PLAN: Taylor was seen today for follow up, diabetes and results. Diagnoses and all orders for this visit: Type 2 diabetes mellitus with other specified complication, without long-term current use of insulin (HCC) - glimepiride (AMARYL) 2 mg tablet; Take 1 tablet by mouth twice daily with meals. Hypokalemia - potassium chloride ER (K-DUR, KLOR-CON) 20 mEq tablet; Take 1 tablet by mouth as needed. Essential hypertension - indapamide (LOZOL) 2.5 mg tablet; Take 1 tablet by mouth once daily. Diabetes is well controlled with A1c 6.1 BP well controlled- continue current medication Patient with K at 3.2- increase potassium foods, has potassium chloride to take as well. Megan Conklin DO October 19, 2021 1:03 PM [facility] 10-19-2021 History of Presen t illness Narrative Taylor Wesley 56 year old female seen today for The primary encounter diagnosis was Type 2 diabetes mellitus with other specified complication, without long-term current use of insulin (HCC). Diagnoses of Hypokalemia and Essential hypertension were also pertinent to this visit. HPI: Diabetes: A1c 6.1 K 3.2- eating super foods per nutrition Kidney function normal Amaryl 2 mg BID - no low blood sugars Hypokalemia: - has potassium 20 mg daily prn Has plan for mammogram every 6 months Current Outpatient Medications on File Prior to Visit Medication Sig WorkTouch VERIO TEST STRIPS test strip USE TO TEST BLOOD SUGAR TWICE DAILY acetaminophen (TYLENOL) 325 mg tablet Take 2 tablets by mouth as needed. albuterol HFA (PROVENTIL HFA, VENTOLIN HFA) 90 mcg/actuation inhaler Inhale 2 Puffs as instructed as needed. Albuterol Sulfate 1.25 mg/3 mL nebulizer solution Use 1 Ampule via nebulizer as needed. ondansetron orally disintegrating (ZOFRAN ODT) 4 mg disintegrating tablet Take 1 tablet by mouth every 6 hours as needed. potassium chloride ER (K-DUR, KLOR-CON) 20 mEq tablet Take 1 tablet by mouth as needed. glimepiride (AMARYL) 2 mg tablet Take 2 mg by mouth twice daily with meals. indapamide (LOZOL) 2.5 mg tablet Take 2.5 mg by mouth once daily. diazePAM (VALIUM) 5 mg tablet as needed for anxiety (02/07/21 procedure). No current facility-administered medications on file prior to visit. HISTORIES FAMILY HISTORY Problem Relation Age of Onset Breast Cancer Mother 43 at 45 Ovarian cancer No Family History PAST MEDICAL HISTORY Diagnosis Date Paraplegia (HCC) Type 2 diabetes mellitus (HCC) Wheelchair bound PAST SURGICAL HISTORY Procedure Laterality Date BACK SURGERY HX BX OF BREAST; INCISIONAL Right 02/28/2021 Benign PAST SURGICAL HISTORY OF Thumb surgery TOTAL HIP REPLACEMENT Left Social History Tobacco Use Smoking status: Never Smokeless tobacco: Never Vaping Use Vaping Use: Never used Substance Use Topics Alcohol use: Yes Comment: occasionally Drug use: Never Review of Systems Constitutional: Negative for appetite change, chills and fever. Respiratory: Negative for cough and shortness of breath. Cardiovascular: Negative for chest pain, palpitations and leg swelling. Gastrointestinal: Negative for abdominal pain, blood in stool, constipation, diarrhea, nausea and vomiting. Endocrine: Negative for polydipsia and polyphagia. Genitourinary: Negative for dysuria, hematuria and urgency. Neurological: Negative for dizziness, light-headedness and headaches. 10/19/21 1254 BP: 148/78 BP Site: Left Arm BP Position: Sitting BP Cuff Size: Regular Adult Pulse: 91 Resp: 16 Temp: 36.3 C (97.3 F) TempSrc: Temporal SpO2: 96% Physical Exam Constitutional: General: She is not in acute distress. Appearance: She is not ill-appearing. Comments: In wheelchair HENT: Head: Normocephalic and atraumatic. Cardiovascular: Rate and Rhythm: Normal rate and regular rhythm. Pulses: Normal pulses. Heart sounds: Normal heart sounds. No murmur heard. No friction rub. No gallop. Pulmonary: Effort: Pulmonary effort is normal. Breath sounds: Normal breath sounds. No wheezing, rhonchi or rales. Musculoskeletal: Right lower leg: No edema. Left lower leg: No edema. Neurological: Mental Status: She is alert. ASSESSMENT and PLAN: Taylor was seen today for follow up, diabetes and results. Diagnoses and all orders for this visit: Type 2 diabetes mellitus with other specified complication, without long-term current use of insulin (HCC) - glimepiride (AMARYL) 2 mg tablet; Take 1 tablet by mouth twice daily with meals. Hypokalemia - potassium chloride ER (K-DUR, KLOR-CON) 20 mEq tablet; Take 1 tablet by mouth as needed. Essential hypertension - indapamide (LOZOL) 2.5 mg tablet; Take 1 tablet by mouth once daily. Diabetes is well controlled with A1c 6.1 BP well controlled- continue current medication Patient with K at 3.2- increase potassium foods, has potassium chloride to take as well. Megan Conklin DO October 19, 2021 1:03 PM documented in this encounter [facility] 2021 History of Presen t illness Narrative Images from the original note were not included. Jazmin Zazueta MD [facility] [address] [place] [address] SUBJECTIVE Chief Complaint: Patient presents with: 6 Month Exam: Had mammogram 09/01/21 . HPI Taylor Wesley is a 56 year old female here for follow up. High risk for developing breast cancer. History of benign right breast biopsy. Monitoring calcifications. Today right mammogram showed stable calcs, BIRADS 3. She denies palpating any breast masses or axillary adenopathy. No skin or nipple changes. No nipple discharge. Nursing Notes: [facility] Sush[facility] 2021 10:20 AM Signed Patient is being seen for her 6 month exam. Patient had a mammogram 09-01-21. Patient states that she is not having any breast pains or concerns today. [facility] Sush[facility] AGE AT [place] 12 AGE AT FIRST na FAMILY HISTORY OF BREAST CANCER Yes (IF YES) NUMBER OF FIRST DEGREE RELATIVES WITH BREAST CANCER 1 PREVIOUS BREAST BIOPSIES Yes (x1) RACE -[place] GEOVANI MODEL RISK 5 YEAR 2.4 GEOVANI MODEL RISK LIFETIME 13.1 TYRER CUZICK SCORE 36.4 Review of Systems Constitutional: Negative for fever, malaise/fatigue and weight loss. Breast: See HPI PAST MEDICAL HISTORY Diagnosis Date Paraplegia (HCC) Type 2 diabetes mellitus (HCC) Wheelchair bound PAST SURGICAL HISTORY Procedure Laterality Date BACK SURGERY HX BX OF BREAST; INCISIONAL Right 02/28/2021 Benign PAST SURGICAL HISTORY OF Thumb surgery TOTAL HIP REPLACEMENT Left Social History Tobacco Use Smoking status: Never Smokeless tobacco: Never Vaping Use Vaping Use: Never used Substance Use Topics Alcohol use: Yes Comment: occationally Drug use: Never FAMILY HISTORY Problem Relation Age of Onset Breast Cancer Mother 43 at 45 Ovarian cancer No Family History The ROS, medical, surgical, family, and social history were reviewed by Jazmin Zazueta MD ALLERGIES Allergen Reactions Amoxicillin GI Upset Current Outpatient Medications Medication Sig ONETOUCH VERIO TEST STRIPS test strip USE TO TEST BLOOD SUGAR TWICE DAILY acetaminophen (TYLENOL) 325 mg tablet Take 2 tablets by mouth as needed. albuterol HFA (PROVENTIL HFA, VENTOLIN HFA) 90 mcg/actuation inhaler Inhale 2 Puffs as instructed as needed. Albuterol Sulfate 1.25 mg/3 mL nebulizer solution Use 1 Ampule via nebulizer as needed. ondansetron orally disintegrating (ZOFRAN ODT) 4 mg disintegrating tablet Take 1 tablet by mouth every 6 hours as needed. potassium chloride ER (K-DUR, KLOR-CON) 20 mEq tablet Take 1 tablet by mouth as needed. glimepiride (AMARYL) 2 mg tablet Take 2 mg by mouth twice daily with meals. indapamide (LOZOL) 2.5 mg tablet Take 2.5 mg by mouth once daily. diazePAM (VALIUM) 5 mg tablet as needed for anxiety (02/07/21 procedure). No current facility-administered medications for this visit. OBJECTIVE BP 134/54 Pulse 81 Ht 149.9 cm (4' 11) Wt 81.2 kg (179 lb) BMI 36.15 kg/m BMI 36.15 kg/(m^2) Physical Exam Neck: Thyroid: No thyromegaly. Chest: Breasts: Breasts are symmetrical. Right: No inverted nipple, mass, nipple discharge, skin change or tenderness. Left: No inverted nipple, mass, nipple discharge, skin change or tenderness. Lymphadenopathy: Head: Right side of head: No submental, submandibular or tonsillar adenopathy. Left side of head: No submental, submandibular or tonsillar adenopathy. Cervical: No cervical adenopathy. Upper Body: Right upper body: No supraclavicular or axillary adenopathy. Left upper body: No supraclavicular or axillary adenopathy. Neurological: Mental Status: She is alert and oriented to person, place, and time. Plan ASSESSMENT/PLAN At high risk for breast cancer Taylor Wesley is a 56 year old female here for biopsy results. She is status post US guided biopsy of right breast mass associated with calcification. 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 Stable on today;s mammogram. Clinical exam benign. Genetics negative for pathologic variant. VUS in CDH1. Lifetime risk 36.4%. I have recommended she undergo high risk screening. According to the NCCN guidelines, this includes monthly self breast exams, a clinical exam every 6-12 months and annual screening mammograms and MRIs. Cannot do breast MRI due to decreased mobility. Will monitor with mammograms. Mutually agreed no risk reduction medication due to potential side effects. Follow up in 6 months with bilateral mammograms and appointment with [facility]. Follow up: Return for bilateral mammograms and appointment with [facility] in 6 months. Jazmin Zazueta MD 2021 10:25 AM documented in this encounter [facility] 2021 Nurse Note Patient is being seen for her 6 month exam. Patient had a mammogram 09-01-21. Patient states that she is not having any breast pains or concerns today. [facility] Sush[facility] documented in this encounter [facility] 09-14-2021 Miscellaneous Notes Results left on patient voicemail. Taylor Wesley's Custom Cancer Panel through [email or web address] was negative for a pathogenic variant. 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 Please see [employer] message for further discussion. LEONARD Oliva Licensed, Certified Genetic Counselor documented in this encounter [facility] 09-12-2021 History of Past i llness Narrative Problem Noted Date Resolved Date Sepsis 09/12/2021 11/19/2021 documented as of this encounter (statuses as of 04/28/2022) [facility]05[facility]2022 History of Past illness Narrative* Problem Noted Date Resolved Date Sepsis 09/12/2021 11/19/2021 documented as of this encounter (statuses as of 05/01/2022) [facility] History of Past illness Narrative* Problem Noted Date Diagnosed Date Resolved Date Sepsis 09/12/2021 11/19/2021 documented as of this encounter (statuses as of 11/09/2022) [facility] History of Past illness Narrative* Problem Noted Date Diagnosed Date Resolved Date Sepsis 09/12/2021 11/19/2021 documented as of this encounter (statuses as of 01/04/2023) [facility] History of Past illness Narrative* Problem Noted Date Diagnosed Date Resolved Date Sepsis 09/12/2021 11/19/2021 documented as of this encounter (statuses as of 02/08/2023) [facility] History of Past illness Narrative* Problem Noted Date Diagnosed Date Resolved Date Sepsis 09/12/2021 11/19/2021 documented as of this encounter (statuses as of 06/15/2023) [facility] History of Past illness Narrative* Problem Noted Date Diagnosed Date Resolved Date Sepsis 09/12/2021 11/19/2021 documented as of this encounter (statuses as of 06/15/2023) [facility]2022 NoteHNO ID: [id number] Author: Megan Conklin, DO Service: ? Author Type: Physician Type: Progress Notes Filed: 09/14/2021 5:22 AM Note Text: Taylor Wesley 55 year old female seen today for The primary encounter diagnosis was Hemiplegic cerebral palsy (HCC). Diagnoses of Paraplegia (HCC) and Type 2 diabetes mellitus with other specified complication, without long-term current use of insulin (HCC) were also pertinent to this visit. HPI: Feeling well Cerebral Palsy: Wheelchair all the time for ambulation Mobility in legs minimal Has handicap placard- needs renewed Patient with paraplegia Current Outpatient Medications on File Prior to Visit Medication Sig - acetaminophen (TYLENOL) 325 mg tablet Take 2 tablets by mouth as needed. - albuterol HFA (PROVENTIL HFA, VENTOLIN HFA) 90 mcg/actuation inhaler Inhale 2 Puffs as instructed as needed. - Albuterol Sulfate 1.25 mg/3 mL nebulizer solution Use 1 Ampule via nebulizer as needed. - ONETOUCH VERIO TEST STRIPS test strip USE TO TEST BLOOD SUGAR TWICE DAILY - ondansetron orally disintegrating (ZOFRAN ODT) 4 mg disintegrating tablet Take 1 tablet by mouth every 6 hours as needed. - potassium chloride ER (KLOR-CON M20) 20 mEq tablet Take 1 tablet by mouth as needed. - glimepiride (AMARYL) 2 mg tablet Take 2 mg by mouth twice daily with meals. - indapamide (LOZOL) 2.5 mg tablet Take 2.5 mg by mouth once daily. - diazePAM (VALIUM) 5 mg tablet as needed for anxiety (02/07/21 procedure). No current facility-administered medications on file prior to visit. HISTORIES FAMILY HISTORY Problem Relation Age of Onset - Breast Cancer Mother 43 at 45 - Ovarian cancer No Family History PAST MEDICAL HISTORY Diagnosis Date - Paraplegia (HCC) - Type 2 diabetes mellitus (HCC) - Wheelchair bound PAST SURGICAL HISTORY Procedure Laterality Date - BACK SURGERY HX - BX OF BREAST; INCISIONAL Right 02/28/2021 Benign - PAST SURGICAL HISTORY OF Thumb surgery - TOTAL HIP REPLACEMENT Left Social History Tobacco Use - Smoking status: Never Smoker - Smokeless tobacco: Never Used Vaping Use - Vaping Use: Never used Substance Use Topics - Alcohol use: Never - Drug use: Never Review of Systems Constitutional: Negative for appetite change, chills and fever. Respiratory: Negative for cough and shortness of breath. Cardiovascular: Negative for chest pain, palpitations and leg swelling. Gastrointestinal: Negative for abdominal pain, blood in stool, constipation, diarrhea, nausea and vomiting. Endocrine: Negative for polydipsia and polyphagia. Genitourinary: Negative for dysuria, hematuria and urgency. Neurological: Negative for dizziness, light-headedness and headaches. 09/12/21 1035 BP: 125/83 BP Site: Left Arm BP Position: Sitting BP Cuff Size: Large Adult Pulse: 88 Temp: 36 ?C (96.8 ?F) TempSrc: Temporal Physical Exam Vitals reviewed. Constitutional: Appearance: Normal appearance. Cardiovascular: Rate and Rhythm: Normal rate and regular rhythm. Heart sounds: No murmur heard. No friction rub. No gallop. Pulmonary: Breath sounds: Normal breath sounds. No wheezing, rhonchi or rales. Musculoskeletal: Right lower leg: No edema. Left lower leg: No edema. Comments: Seated in wheelchair- belted in wheelchair Unable to lean forward without assistance Significant weakness in LE- little mobility Weakness in core Neurological: Mental Status: She is alert. Psychiatric: Thought Content: Thought content normal. Judgment: Judgment normal. ASSESSMENT and PLAN: Taylor was seen today for paperwork for wheelchair. Diagnoses and all orders for this visit: Hemiplegic cerebral palsy (HCC) Paraplegia (HCC) Type 2 diabetes mellitus with other specified complication, without long-term current use of insulin (HCC) - LIPID PANEL BASIC; Future - HGB A1C; Future - CBC + DIFF; Future - COMP METABOLIC PANEL; Future Patient with hemiplegiic cerebral palsy She is wheelchair bound with little mobility in her legs On exam she has significant weakness in core- unable to lean forward without assistance, seated in wheelchair with seatbelt Filled out paperwork for handicap placard With little mobility would benefit from home modifications- home needs to be handicap accessible with widened doorways, ramp for access to the home, counters and bathroom vanities lowered for access, showers wheelchair accessible Megan Conklin DO 09/12/21[facility]2022 History of Present illness Narrative* Megan Conklin DO - 09/12/2021 10:41 AM EDT Taylor Cristóbal Contrerass 55 year old female seen today for The primary encounter diagnosis was Hemiplegic cerebral palsy (HCC). Diagnoses of Paraplegia (HCC) and Type 2 diabetes mellitus with other specified complication, without long-term current use of insulin (HCC) were also pertinent to this visit. HPI: Feeling well Cerebral Palsy: Wheelchair all the time for ambulation Mobility in legs minimal Has handicap placard- needs renewed Patient with paraplegia Current Outpatient Medications on File Prior to Visit Medication Sig acetaminophen (TYLENOL) 325 mg tablet Take 2 tablets by mouth as needed. albuterol HFA (PROVENTIL HFA, VENTOLIN HFA) 90 mcg/actuation inhaler Inhale 2 Puffs as instructed as needed. Albuterol Sulfate 1.25 mg/3 mL nebulizer solution Use 1 Ampule via nebulizer as needed. ONETOUCH VERIO TEST STRIPS test strip USE TO TEST BLOOD SUGAR TWICE DAILY ondansetron orally disintegrating (ZOFRAN ODT) 4 mg disintegrating tablet Take 1 tablet by mouth every 6 hours as needed. potassium chloride ER (KLOR-CON M20) 20 mEq tablet Take 1 tablet by mouth as needed. glimepiride (AMARYL) 2 mg tablet Take 2 mg by mouth twice daily with meals. indapamide (LOZOL) 2.5 mg tablet Take 2.5 mg by mouth once daily. diazePAM (VALIUM) 5 mg tablet as needed for anxiety (02/07/21 procedure). No current facility-administered medications on file prior to visit. HISTORIES FAMILY HISTORY Problem Relation Age of Onset Breast Cancer Mother 43 at 45 Ovarian cancer No Family History PAST MEDICAL HISTORY Diagnosis Date Paraplegia (HCC) Type 2 diabetes mellitus (HCC) Wheelchair bound PAST SURGICAL HISTORY Procedure Laterality Date BACK SURGERY HX BX OF BREAST; INCISIONAL Right 02/28/2021 Benign PAST SURGICAL HISTORY OF Thumb surgery TOTAL HIP REPLACEMENT Left Social History Tobacco Use Smoking status: Never Smoker Smokeless tobacco: Never Used Vaping Use Vaping Use: Never used Substance Use Topics Alcohol use: Never Drug use: Never Review of Systems Constitutional: Negative for appetite change, chills and fever. Respiratory: Negative for cough and shortness of breath. Cardiovascular: Negative for chest pain, palpitations and leg swelling. Gastrointestinal: Negative for abdominal pain, blood in stool, constipation, diarrhea, nausea and vomiting. Endocrine: Negative for polydipsia and polyphagia. Genitourinary: Negative for dysuria, hematuria and urgency. Neurological: Negative for dizziness, light-headedness and headaches. 09/12/21 1035 BP: 125/83 BP Site: Left Arm BP Position: Sitting BP Cuff Size: Large Adult Pulse: 88 Temp: 36 C (96.8 F) TempSrc: Temporal Physical Exam Vitals reviewed. Constitutional: Appearance: Normal appearance. Cardiovascular: Rate and Rhythm: Normal rate and regular rhythm. Heart sounds: No murmur heard. No friction rub. No gallop. Pulmonary: Breath sounds: Normal breath sounds. No wheezing, rhonchi or rales. Musculoskeletal: Right lower leg: No edema. Left lower leg: No edema. Comments: Seated in wheelchair- belted in wheelchair Unable to lean forward without assistance Significant weakness in LE- little mobility Weakness in core Neurological: Mental Status: She is alert. Psychiatric: Thought Content: Thought content normal. Judgment: Judgment normal. ASSESSMENT and PLAN: Taylor was seen today for paperwork for wheelchair. Diagnoses and all orders for this visit: Hemiplegic cerebral palsy (HCC) Paraplegia (HCC) Type 2 diabetes mellitus with other specified complication, without long-term current use of insulin (HCC) - LIPID PANEL BASIC; Future - HGB A1C; Future - CBC + DIFF; Future - COMP METABOLIC PANEL; Future Patient with hemiplegiic cerebral palsy She is wheelchair bound with little mobility in her legs On exam she has significant weakness in core- unable to lean forward without assistance, seated in wheelchair with seatbelt Filled out paperwork for handicap placard With little mobility would benefit from home modifications- home needs to be handicap accessible with widened doorways, ramp for access to the home, counters and bathroom vanities lowered for access,showers wheelchair accessible Megan Conklin DO 09/12/21 [facility] History of Present illness Narrative* RT Sergio(R) - 09/01/2021 9:15 AM EDT Radiology Service Progress Note PATIENT NAME: Taylor Wesley DATE OF SERVICE: September 01, 2021 TIME: 8:42 AM PATIENT IDENTITY VERIFICATION COMPLETED USING TWO (2) IDENTIFIERS: Name and Date of confirmedby patient verbally. FALL SCREENING: Has the patient had 2 falls in the last year or 1 fall with injury or currently using an Ambulatory Assistive Device (Walker, Cane, Wheelchair, Crutches, etc.)? No PATIENT GENDER DATA: Female. status: : No status: NO. PATIENT RELEVANT IMPLANT DATA REVIEWED: Not Applicable RADIOLOGY DEPARTMENT: Mammography PERIPHERAL IV DATA: Not applicable SIGNED BY: RT Sergio(R) September 01, 2021 8:42 AM [facility] History of Present illness Narrative* LEONARD Oliva - 09/01/2021 7:27 AM EDT Images from the original note were not included. [facility] Consultation Note Genetic Counselor: Mili Moncada MS, [facility] Patient: Taylor Wesley Patient Name and confirmed at initiation of visit HIGH LEVEL SUMMARY: The patient's family history is potentially suggestive of a hereditary breast cancer syndrome. The patient provided informed consent for Hereditary Breast and Ovarian Cancer Panel with reflex toa Custom Cancer Panel through [employer]. Results are expected in 2-3 weeks. IDENTIFICATION AND CHIEF COMPLAINT: Dr. Jazmin Zazueta requested a consultation for genetic counseling and risk assessment for Lucius Wesley, a 55 year old female, for discussion of her family history of breast cancer. She presents to clinic today to discuss the possibility of a genetic predisposition to cancer, and to further clarify her risks, as well as her family members' risks for cancer. HISTORY OF PRESENT ILLNESS: Taylor Wesley is a 55 year old female with no personal history of cancer. PAST MEDICAL HISTORY Diagnosis Date Paraplegia (HCC) Type 2 diabetes mellitus (HCC) Wheelchair bound PAST SURGICAL HISTORY Procedure Laterality Date BACK SURGERY HX BX OF BREAST; INCISIONAL Right 02/28/2021 Benign PAST SURGICAL HISTORY OF Thumb surgery TOTAL HIP REPLACEMENT Left CANCER SURVEILLANCE HISTORY: Mammograms: Yes Breast Biopsies: Yes / benign Colonoscopy: Yes EGD: No GI Polyps: No Pelvic Exam: No Pap Smear: No REPRODUCTIVE HISTORY AND PERSONAL RISK ASSESSMENT FACTORS: Weight: Last 1 Encounter Wt Readings: Date: Wt: 03/07/2021 81.2 kg (179 lb) Height: Last 1 Encounter Ht Readings: Date: Ht: 03/07/2021 149.9 cm (4' 11) Uterus Intact: Yes Ovaries Intact: Yes SOCIAL HISTORY: Social History Tobacco Use Smoking status: Never Smoker Smokeless tobacco: Never Used Substance Use Topics Alcohol use: Not on file Drug use: Not on file FAMILY HISTORY: We obtained a detailed, 4-generation family history. Significant diagnoses are listed below: FAMILY HISTORY Problem Relation Age of Onset Breast Cancer Mother 43 at 45 Ovarian cancer No Family History A copy of the patient's pedigree will be available under the scanned documents tab following today's visit. GENETIC COUNSELING RISK ASSESSMENT, DISCUSSION, AND SUGGESTED FOLLOW UP: We reviewed the natural history and genetic etiology of sporadic, familial and hereditary cancer syndromes. The patient's family history is potentially suggestive of: a hereditary breast cancer syndrome We discussed that the best person to begin with genetic testing is a family member with a history of cancer. Ms. Wesley's mother who was diagnosed with breast cancer would be the most appropriate relative for genetic testing. However, this relative is unavailable for testing. Therefore we discussed the limitations of interpreting tests results for an unaffected individual. The patient meets NCCN HBOC testing criteria since her mother had a personal history of breast cancer diagnosed <= 45 years of age. We discussed that identification of a hereditary cancer syndrome may help her care providers tailorher medical management. If a mutation is detected, the National Comprehensive Cancer Network and/orexpert opinion recommendations could include increased cancer surveillance and prophylactic surgeryoptions. If a mutation is detected, the patient will be referred back to the referring provider andto any additional appropriate care providers to discuss the relevant options. Inheritance of hereditary cancer syndromes was discussed with the patient. If a mutation is not found in the patient, this will decrease the likelihood of a hereditary cancersyndrome for the patient, however it cannot rule it out as the explanation for the family history of breast cancer. Cancer surveillance options would be discussed for the patient according to the appropriate standard National Comprehensive Cancer Network and [place] Cancer [employer] guidelines, withconsideration of their personal and family history risk factors. In this case, the patient will be referred back to their care providers for discussions of management. Based on this assessment of the patient's family and personal history, genetic testing is recommended. After considering the risks, benefits, and limitations, the patient chose to pursue and provided informed consent for the following testing: Hereditary Breast and Ovarian Cancer Panel with reflex to a Custom Cancer Panel through [email or web address]. The Custom Cancer Panel includes APC, NOÉ, AXIN2, BAP1, BARD1, BMPR1A, BRCA1, BRCA2, BRIP1, CDH1, CDK4, CDKN2A, CHEK2, CTNNA1, DDX41, DICER1, EPCAM, FH, FLCN, GREM1, HOXB13, MAX, MEN1, MET, MITF, MLH1, MSH2, MSH3, MSH6, MUTYH, NF1, NTHL1, PALB2, PMS2, POLD1, POLE, POT1, PTCH1, PTEN, RAD51C, RAD51D,RET, SDHA, SDHAF2, SDHB, SDHC, SDHD, SMAD4, SMARCA4, STK11, EHMN936, TP53, TSC1, TSC2, and VHL We discussed that an NGS panel can rarely result in an unexpected finding in a gene which may or may not be related to the presenting phenotype. Per the patient's request, we will contact her by telephone to discuss these results. A follow up genetic counseling visit will be scheduled if requested. The patient was seen for a total of 20 minutes, greater than 50% of which was spent [id number] counseling. This plan is being carried out per Dr. Radha Deng's recommendations. This note will also be sent to the referring provider via the electronic medical record. Mili Moncada, , [facility], Licensed Genetic Counselor [facility] CC: Dr. Jazmin Valentin [facility] Miscellaneous Notes* Telephone Encounter - Jes Shane RN - 03/02/2021 11:24 AM EST Patient called and was given pathology results. Informed that concordance report from radiology is not complete. Instructed to keep follow up appointment as physician will discuss final recommendations for care. Jes Shane RN documented in this encounterReg[facility] History of Present illness Narrative* RT Keyanna(R) - 02/28/2021 8:30 AM EST Radiology Service Progress Note PATIENT NAME: Taylor Wesley DATE OF SERVICE: February 28, 2021 TIME: 8:33 AM PATIENT IDENTITY VERIFICATION COMPLETED USING TWO (2) IDENTIFIERS: Name and Date of confirmedby patient verbally. FALL SCREENING: Has the patient had 2 falls in the last year or 1 fall with injury or currently using an Ambulatory Assistive Device (Walker, Cane, Wheelchair, Crutches, etc.)? Yes, Patient High Riskfor Falls What interventions were put in place to prevent falls during this visit? Increased Observations by Caregivers PATIENT GENDER DATA: Female. status: : No status: NO. PATIENT RELEVANT IMPLANT DATA REVIEWED: Not Applicable RADIOLOGY DEPARTMENT: Biopsy PERIPHERAL IV DATA: Not applicable SIGNED BY: RT Keyanna(R) February 28, 2021 8:33 AM documented in this encounterReg[facility]-30-2021 History of Present illness Narrative* RT Keyanna(R) - 02/07/2021 12:30 PM EST Radiology Service Progress Note PATIENT NAME: Taylor Wesley DATE OF SERVICE: February 07, 2021 TIME: 1:57 PM PATIENT IDENTITY VERIFICATION COMPLETED USING TWO (2) IDENTIFIERS: Name and Date of confirmedby patient verbally. FALL SCREENING: Has the patient had 2 falls in the last year or 1 fall with injury or currently using an Ambulatory Assistive Device (Walker, Cane, Wheelchair, Crutches, etc.)? Yes, Patient High Riskfor Falls What interventions were put in place to prevent falls during this visit? Increased Observations by Caregivers PATIENT GENDER DATA: Female. status: : No status: NO. PATIENT RELEVANT IMPLANT DATA REVIEWED: Not Applicable RADIOLOGY DEPARTMENT: Ultrasound PERIPHERAL IV DATA: Not applicable SIGNED BY: RT Keyanna(Win) February 07, 2021 1:57 PM documented in this encounterRegency [facility]11-30-2021 History and physical note * Jazmin Zazueta MD - 02/07/2021 11:14 AM EST Images from the original note were not included. Jazmin Zazueta MD [facility] [address] [place] [address] SUBJECTIVE Chief Complaint: Patient presents with: Breast Problem: stereotactic biopsy due to breast calcifications . HPI Taylor Wesley is a 55 year old female here for evaluation of abnormal right mammogram. Had outside imaging. Right mammogram showed multiple clusters of coarse heterogeneous calcifications in the right breast upper inner aspect middle depth. Right ultrasound showed 1 cm area in the right breast at 1 o'clock middle depth. This area is of mixed echogenicity. Color flow imaging demonstrates that there is no increase in vascularity. This area likely contains calcifications as demonstrated mammographically BIRADS 4. She denies palpating any breast masses or axillary adenopathy. No skin or nipple changes. No nippledischarge. Nursing Notes: Yudelka Guerra MA 02/07/2021 11:11 AM Signed Patient presents due suspicious calcifications of the right breast. Patient denies palpating any lumps in her breast. Patient stated she does have an ache in her breasts every once in awhile. Patient denies any nipple discharge or inversion. Family history of breast cancer in mother at age 43, at 45. LMP: Patient stated she should be starting soon. HRT use: no BCP use: no Yudelka Guerra MA AGE AT [place] 12 AGE AT FIRST no births FAMILY HISTORY OF BREAST CANCER Yes (IF YES) NUMBER OF FIRST DEGREE RELATIVES WITH BREAST CANCER 1 (mom ) PREVIOUS BREAST BIOPSIES No RACE -[place] GEOVANI MODEL RISK 5 YEAR 2.3 GEOVANI MODEL RISK LIFETIME 15.5 Review of Systems Constitutional: Negative for fever, malaise/fatigue and weight loss. Breast: See HPI PAST MEDICAL HISTORY Diagnosis Date Paraplegia (HCC) Type 2 diabetes mellitus (HCC) Wheelchair bound PAST SURGICAL HISTORY Procedure Laterality Date BACK SURGERY HX PAST SURGICAL HISTORY OF Thumb surgery TOTAL HIP REPLACEMENT Left Social History Tobacco Use Smoking status: Never Smoker Smokeless tobacco: Never Used Substance Use Topics Alcohol use: Not on file Drug use: Not on file FAMILY HISTORY Problem Relation Age of Onset Breast Cancer Mother 43 at 45 Ovarian cancer No Family History The ROS, medical, surgical, family, and social history were reviewed by Jazmin Zazueta MD ALLERGIES Not on File Current Outpatient Medications Medication Sig glimepiride (AMARYL) 2 mg tablet indapamide (LOZOL) 2.5 mg tablet diazePAM (VALIUM) 5 mg tablet as needed for anxiety (02/07/21 procedure). No current facility-administered medications for this visit. OBJECTIVE BP 140/84 Pulse 90 Ht 149.9 cm (4' 11) Wt 81.2 kg (179 lb) BMI 36.15 kg/m BMI 36.15 kg/(m^2) Physical Exam Neck: Thyroid: No thyromegaly. Chest: Breasts: Breasts are symmetrical. Right: No inverted nipple, mass, nipple discharge, skin change, tenderness or supraclavicular adenopathy. Left: No inverted nipple, mass, nipple discharge, skin change, tenderness or supraclavicular adenopathy. Lymphadenopathy: Head: Right side of head: No submental, submandibular or tonsillar adenopathy. Left side of head: No submental, submandibular or tonsillar adenopathy. Cervical: No cervical adenopathy. Upper Body: Right upper body: No supraclavicular adenopathy. Left upper body: No supraclavicular adenopathy. Neurological: Mental Status: She is alert and oriented to person, place, and time. Cranial Nerves: Cranial nerves are intact. Plan ASSESSMENT/PLAN Breast calcification, right Ms. Wesley is a 55 year old female with abnormal right mammogram. Additional diagnostic imaging today showed an area visible with US that likely correlates with calcifications on mammogram. Patient unable to tolerate more imaging or stereotactic biopsy due to limited mobility. Plan for US guided biopsy with specimen xray to confirm sampling of calcifications. Follow up for results. Follow up: Return in about 4 weeks (around 03/07/2021). Jazmin Zazueta MD 02/07/2021 11:14 AM documented in this encounterReg[facility]-30-[facility] Nurse Note* Yudelka Guerra MA - 02/07/2021 11:05 AM EST Patient presents due suspicious calcifications of the right breast. Patient denies palpating any lumps in her breast. Patient stated she does have an ache in her breasts every once in awhile. Patient denies any nipple discharge or inversion. Family history of breast cancer in mother at age 43, at 45. LMP: Patient stated she should be starting soon. HRT use: no BCP use: no Yudelka Guerra MA [facility]* Diagnosis Breast calcification, right Other (abnormal) findings on radiological examination of breast [facility] encounter [facility]* Diagnosis Breast calcification, right Other (abnormal) findings on radiological examination of breast documented [facility]* Diagnosis Breast calcification, right- Primary Other (abnormal) findings on radiological examination of breast [facility] Diagnosis Breast calcification, right- Primary Other (abnormal) findings on radiological examination of breast documented [facility] this [facility]* Diagnosis Breast calcification, right Other (abnormal) findings on radiological examination of breast documented [facility] this [facility]* Diagnosis Onset Date Resolution Status Encounter for screening for COVID-19 acute Gastroenteritis acute Vomiting acute [facility] Work Phone: evaluation note* Diagnosis Family history of malignant neoplasm of breast- Primary At high risk for breast cancer documented in this encounter [facility] note* Diagnosis Fibroadenoma of breast, right Breast calcification, right Other (abnormal) findings on radiological examination of breast documented in this encounter [facility]* Diagnosis 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 Paraplegia (HCC) Paraplegia Type 2 diabetes mellitus with other specified complication, without long-term current use of insulin (HCC) documented in this encounter [facility]* Diagnosis Abnormal mammogram- Primary Abnormal mammogram, unspecified Family history of malignant neoplasm of breast At high risk for breast cancer documented in this encounter [facility] note* Diagnosis Type 2 diabetes mellitus with other specified complication, without long-term current use of insulin (HCC)- Primary Hypokalemia Hypopotassemia Essential hypertension Unspecified essential hypertension documented in this encounter [facility] noteNo assessment information availableWCincinnati [facility] Work Phone: evaluation note* Diagnosis Onset Date Resolution Status Contact with and (suspected) exposure to other viral communicable diseases [facility] Work Phone: evaluation note* Diagnosis Onset Date Resolution Status Contact with and (suspected) exposure to other viral communicable diseases acute Acute bronchitis acute Contact with and (suspected) exposure to other viral communicable diseases [facility] Work Phone: evaluation note* Diagnosis Abnormal mammogram Abnormal mammogram, unspecified documented in this encounter [facility] note* Diagnosis Onset Date Resolution Status Acute bronchitis acute Contact with and (suspected) exposure to other viral communicable diseases [facility] Work Phone: evaluation note* Diagnosis Breast calcification, right- Primary Other (abnormal) findings on radiological examination of breast Dense breast tissue At high risk for breast cancer documented in this encounter [facility]* Diagnosis Unspecified lump in axillary tail of the left breast- Primary Dense breast tissue Breast calcification, right Other (abnormal) findings on radiological examination of breast At high risk for breast cancer documented in this encounter [facility]* Diagnosis Mass of axillary tail of left breast- Primary documented in this [facility]* Diagnosis Abnormal mammogram Abnormal mammogram, unspecified documented in this encounter [facility]* Diagnosis Breast calcification, right Other (abnormal) findings on radiological examination of breast Abnormal mammogram Abnormal mammogram, unspecified documented in this encounter [facility]* Diagnosis Onset Date Resolution Status Abnormal uterine bleeding (AUB) acute Routine gynecological examination noneactive [facility] Work Phone: Evaluation note* Diagnosis Pelvic mass in female- Primary Abnormal uterine bleeding (AUB) Pelvic pain in female Unspecified symptom associated with female genital organs Intra-abdominal and pelvic swelling, mass and lump, unspecified site [facility]* Diagnosis Intra-abdominal and pelvic swelling, mass and lump, unspecified site- Primary Intra-abdominal and pelvic swelling, mass and lump, unspecified site Acute postoperative pain Other acute postoperative pain [facility]* Diagnosis Type 2 diabetes mellitus with hyperglycemia, with long-term current use of insulin (HCC)- Primary [facility]* Diagnosis Type 2 diabetes mellitus with hyperglycemia, with long-term current use of insulin (HCC)- Primary Essential (primary) hypertension Unspecified essential hypertension Obesity (BMI 30-39.9) documented [facility]* Diagnosis Postoperative state- Primary Other postprocedural status [facility]* Diagnosis Diabetes education, encounter for- Primary Type 2 diabetes mellitus with hyperglycemia, with long-term current use of insulin (HCC) [facility]* Diagnosis Type 2 diabetes mellitus with hyperglycemia, with long-term current use of insulin (HCC) [facility]* Diagnosis Type 2 diabetes mellitus with hyperglycemia, with long-term current use of insulin (HCC)- Primary Essential (primary) hypertension Unspecified essential hypertension Class 2 severe obesity with serious comorbidity and body mass index (BMI) of 37.0 to 37.9 in adult, unspecified obesity type (HCC) [facility]* Diagnosis Type 2 diabetes mellitus with hyperglycemia, with long-term current use of insulin (HCC)- Primary Hypertension associated with type 2 diabetes mellitus (HCC) Class 2 severe obesity with serious comorbidity and body mass index (BMI) of 37.0 to 37.9 in adult, unspecified obesity type (HCC) documented in this encounter [facility]* Diagnosis Type 2 diabetes mellitus with hyperglycemia, with long-term current use of insulin (HCC) documented in this encounter [facility] note* Diagnosis Type 2 diabetes mellitus with hyperglycemia, with long-term current use of insulin (HCC)- Primary Hypertension associated with type 2 diabetes mellitus (HCC) Class 2 severe obesity with serious comorbidity and body mass index (BMI) of 37.0 to 37.9 in adult, unspecified obesity type (HCC) documented in this encounter [facility] (narrative)* Diagnostic Procedure Only (Routine) - Closed Specialty Diagnoses / Procedures Referred By Contac t Referred To Contact [facility] Diagnoses Breast calcification, right Procedures US BREAST LTD RT US BREAST UNILAT INCL AXILLA LIMITED Jazmin Zazueta MD [address] [place] [address] [facility] [address] [place] [address] Referral ID Status Reason Start Date Expiration Date V isits Requested Visits Authorized [id number] Closed Auto-Generate d Referral 02/07/2021 03/10/2021 1 1 [facility] for referral (narrative)* Diagnostic Procedure Only (Routine) - Pending Review Specialty Diagnoses / Procedures Referred By Contac t Referred To Contact [facility] Diagnoses Breast calcification, right Procedures US BIOPSY BREAST RT BREAST BIOPSY W/ULTRASOUND GUIDANCE Jazmin Zazueta MD [address] [facility] [place] [address] [facility] [address] [place] [address] Referral ID Status Reason Start Date Expiration Date Visits Requested Visits Authorized [id number] Pending Review Auto-Generat ed Referral 02/08/2021 03/10/2022 1 1 [facility] for referral (narrative)* Diagnostic Procedure Only (Routine) - Closed Specialty Diagnoses / Procedures Referred By Contac t Referred To Contact [facility] Diagnoses Breast calcification, right Procedures US BREAST LTD RT US BREAST UNILAT INCL AXILLA LIMITED Jazmin Zazueta MD [address] [place] [address] [facility] [address] [place] [address] Referral ID Status Reason Start Date Expiration Date V isits Requested Visits Authorized [id number] Closed Auto-Generate d Referral 02/07/2021 03/10/2021 1 1 * Diagnostic Procedure Only (Routine) - Closed Specialty Diagnoses / Procedures Referred By Contac t Referred To Contact [facility] Diagnoses Breast calcification, right Procedures GUILLERMINA STEREO BX BREAST RT BREAST BIOPSY W/STEREOTACTIC GUIDANCE Jazmin Zazueta MD [address] [place] [address] [facility] [address] [place] [address] Referral ID Status Reason Start Date Expiration Date V isits Requested Visits Authorized [id number] Closed Auto-Generate d Referral 03/11/2020 03/10/2021 1 1 [facility] for referral (narrative)* Diagnostic Procedure Only (Routine) - Closed Specialty Diagnoses / Procedures [facility] Diagnoses Breast calcification, right Procedures US BIOPSY BREAST RT BREAST BIOPSY W/ULTRASOUND GUIDANCE Jazmin Zazueta MD [address] [facility] [address] [place] [address] [facility] [address] [place] [address] Referral ID Status Reason Start Date Expiration Date V isits Requested Visits Authorized [id number] Closed Auto-Generate d Referral 03/11/2020 03/10/2021 1 1 [facility] for referral (narrative)* Diagnostic Procedure Only (Routine) - Closed Specialty Diagnoses / Procedures [facility] To [facility] Diagnoses Fibroadenoma of breast, right Breast calcification, right Procedures GUILLERMINA DIAGNOSTIC RT DIAGNOSTIC MAMMOGRAPHY COMPUTER-AIDED DETCJ UNI Jazmin Zazueta MD [address] [facility] [place] [address] [facility] [address] [place] [address] Referral ID Status Reason Start Date Expiration Date V isits Requested Visits Authorized [id number] Closed Auto-Generate d Referral 03/11/2021 03/10/2022 1 1 [facility] for referral (narrative)* Diagnostic Procedure Only (Routine) - Authorized Specialty Diagnoses / Procedures [facility] Diagnoses Abnormal mammogram Procedures GUILLERMINA DIAG W ROBERTO BILAT DIGITAL BREAST TOMOSYNTHESIS BILATERAL Jazmin Zazueta MD [address] [facility] [place] [address] [facility] [address] [place] [address] Referral ID Status Reason Start Date Expiration Date Visits Requested Visits Authorized [id number] Authorized Auto-Generat ed Referral 2021 11/17/2022 1 1 T [facility] for referral (narrative)* Diagnostic Procedure Only (Routine) - Closed Specialty Diagnoses / Procedures [facility] Diagnoses Abnormal mammogram Procedures GUILLERMINA DIAG W ROBERTO BILAT DIGITAL BREAST TOMOSYNTHESIS BILATERAL Jazmin Zazueta MD [address] F[address] [facility] [place] [address] Br Imaging [address] [place] [address] Referral ID Status Reason Start Date Expiration Date V isits Requested Visits Authorized [id number] Closed Auto-Generate d Referral 2021 11/17/2022 1 1 [facility] for referral (narrative)* Diagnostic Procedure Only (Routine) - Pending Review Specialty Diagnoses / Procedures Referred By Erica miguel Referred To Contact BR IMAGING Diagnoses Breast calcification, right Procedures GUILLERMINA DIAG W ROBERTO BILATERAL DIGITAL BREAST TOMOSYNTHESIS BILATERAL Jamzin Zazueta MD [address] [place] [address] Br Imaging [address] [place] [address] Referral ID Status Reason Start Date Expiration Date Visits Requested Visits Authorized [id number] Pending Review Auto-Generat ed Referral 11/09/2022 12/08/2023 1 1 [facility] for referral (narrative)* Diagnostic Procedure Only (Routine) - Authorized Specialty Diagnoses / Procedures Referred By Erica t Referred To Contact BR IMAGING Diagnoses Unspecified lump in axillary tail of the left breast Procedures US BREAST LTD LEFT US BREAST UNI REAL TIME WITH IMAGE LIMITED Jazmin Zazueta MD [address] [place] [address] Br Imaging [address] [place] [address] Referral ID Status Reason Start Date Expiration Date Visits Requested Visits Authorized [id number] Authorized Auto-Generat ed Referral 3 02/03/2024 1 1 [facility] for referral (narrative)* Diagnostic Procedure Only (Routine) - Pending Review Specialty Diagnoses / Procedures Referred By Contac t Referred To Contact BR IMAGING Diagnoses Mass of axillary tail of left breast Procedures US BREAST LTD LEFT US BREAST UNI REAL TIME WITH IMAGE LIMITED Jazmin Zazueta MD [address] [place] [address] Br Imaging [address] [place] [address] Referral ID Status Reason Start Date Expiration Date Visits Requested Visits Authorized [id number] Pending Review Auto-Generat ed Referral 3 03/05/2024 1 1 [facility] for referral (narrative)No reason for referral information availableWCincinnati [facility] Work Phone: Reason for visit Narrative* Diagnostic Procedure Only (Routine) - Pending Review Specialty Diagnoses / Procedures Referred By Erica t Referred To Contact BR IMAGING Diagnoses Breast calcification, right Procedures GUILLERMINA STEREO BX BREAST RT BREAST BIOPSY W/STEREOTACTIC GUIDANCE Jazmin Zazueta MD [address] [place] [address] Br Imaging [address] [place] [address] Referral ID Status Reason Start Date Expiration Date Visits Requested Visits Authorized [id number] Pending Review Auto-Generat ed Referral 1 03/09/2022 1 1 [facility] for visit Narrative* Diagnostic Procedure Only (Routine) - Closed Specialty Diagnoses / Procedures Referred By Erica t Referred To Contact BR IMAGING Diagnoses Breast calcification, right Procedures US BREAST LTD RT US BREAST UNILAT INCL AXILLA LIMITED Jazmin Zazueta MD [address] [place] [address] Br Imaging [address] [place] [address] Referral ID Status Reason Start Date Expiration Date V isits Requested Visits Authorized [id number] Closed Auto-Generate d Referral 02/07/2021 03/10/2021 1 1 [facility] for visit Narrative* Diagnostic Procedure Only (Routine) - Closed Specialty Diagnoses / Procedures Referred By Contmagda t Referred To Contact BR IMAGING Diagnoses Breast calcification, right Procedures US BIOPSY BREAST RT BREAST BIOPSY W/ULTRASOUND GUIDANCE Jazmin Zazueta MD [address] [place] [address] Br Imaging [address] [place] [address] Referral ID Status Reason Start Date Expiration Date V isits Requested Visits Authorized [id number] Closed Auto-Generate d Referral 03/11/2020 03/10/2021 1 1 [facility] for visit Narrative* Diagnostic Procedure Only (Routine) - Closed Specialty Diagnoses / Procedures Referred By Contac t Referred To Contact BR IMAGING Diagnoses Breast calcification, right Procedures US BREAST LTD RT US BREAST UNILAT INCL AXILLA LIMITED Jazmin Zazueta MD [address] [place] [address] Br Imaging [address] [place] [address] Referral ID Status Reason Start Date Expiration Date V isits Requested Visits Authorized [id number] Closed Auto-Generate d Referral 08/03/2021 03/10/2022 2 2 [facility] for visit Narrative* Diagnostic Procedure Only (Routine) - Closed Specialty Diagnoses / Procedures [facility] To [facility] Diagnoses Abnormal mammogram Procedures GUILLERMINA DIAG W ROBERTO BILAT DIGITAL BREAST TOMOSYNTHESIS BILATERAL Jazmin Zazueta MD 1 [facility] [address] [place] [address] Br Imaging [address] [place] [address] Referral ID Status Reason Start Date Expiration Date V isits Requested Visits Authorized [id number] Closed Auto-Generate d Referral 2021 11/17/2022 1 1 [facility] for visit Narrative* Diagnostic Procedure Only (Routine) - Closed Specialty Diagnoses / Procedures Referred By Contac t Referred To Contact BR IMAGING Diagnoses Abnormal mammogram Procedures GUILLERMINA STEREO BX BREAST RIGHT BX BREAST W/DEVICE 1ST LESION STEREOTACTIC GUID Vicky Davidson, ELECTRIC BRAIN WAVE EQUIPMENT MECHANIC.SUPERINTENDENT AUTOMOTIVE [address] [address] Br Imaging [address] [place] [address] Referral ID Status Reason Start Date Expiration Date V isits Requested Visits Authorized [id number] Closed Auto-Generate d Referral 05/10/2023 06/07/2024 1 1 [facility] for visit Narrative* Diagnostic Procedure Only (Routine) - Closed Specialty Diagnoses / Procedures Referred By Erica t Referred To Contact BR IMAGING Diagnoses Breast calcification, right Abnormal mammogram Procedures GUILLERMINA DIAGNOSTIC RIGHT DIAGNOSTIC MAMMOGRAPHY COMPUTER-AIDED DETCJ UNI Vicky Davidson, ELECTRIC BRAIN WAVE EQUIPMENT MECHANIC.SUPERINTENDENT AUTOMOTIVE [address] [place] [address] Br Imaging [address] [place] [address] Referral ID Status Reason Start Date Expiration Date V isits Requested Visits Authorized [id number] Closed Auto-Generate d Referral 05/17/2023 06/14/2024 1 1 [facility] Medications Administered Section Inactive Administered Medications - up to 3 most recent administrations Medication Order MAR Action Action Date Dose Rate Site lidocaine 10 mg/mL (1 %) injection (XYLOCAINE) OTHER, NEEDED, Starting on Sat02/28/21 at 0931, Until Sat02/28/21 at 0931 Given 02/28/2021 9:31 AM EST 1 mg Summary Purpose Family History No Family History Records Found Relationship Condition Age at Onset Recorded Date/T arlene mother Malignant neoplasm of breast Unknown Advance Directives No Advanced Directives Records Found Advance Directive Response Recorded Date/ Time Advance Directives No August 06 5 11:26am Living Will Yes February 28 12:10pm Power of Inventory Checker Yes February 29, 2020 12:10pm Advance Directive Response Recorded Date/ Time Advance Directives No August 06 5 11:26am Living Will No June 15, 2021 7:19pm Power of Inventory Checker No June 15 7:19pm Advance Directive Response Recorded Date/ Time Advance Directives No August 06 5 10:26am Living Will No June 15, 2021 6:19pm Power of Inventory Checker No June 15 6:19pm Advance Directive Response Recorded Date/ Time Advance Directives No August 06 5 10:26am Living Will No March 10, 022 3:45pm Power of Inventory Checker No March 10, 2022 3:45pm Advance Directive Response Recorded Date/ Time Advance Directives No August 06 5 11:26am Living Will No March 10, 2 022 4:45pm Power of Inventory Checker No March 10, 2022 4:45pm Advance Directive Response Recorded Date/ Time Advance Directives No November 9:04am Living Will No November 30, 2022 9:04am Power of Inventory Checker No November 9:04am Advance Directive Response Recorded Date/ Time Advance Directives No November 8:04am Living Will No November 30, 2022 8:04am Power of Inventory Checker No November 8:04am Date Activated Date Inactivated Comments 11/26/2023 8:23 AM Date Activated Date Inactivated Comments 11/26/2023 8:23 AM 11/29/2023 4:41 PM Date Activated Date Inactivated Comments 11/26/2023 8:23 AM 11/29/2023 4:41 PM Advance Directive Response Recorded Date/ Time Living Will No May 09, 2024 2:40am Do you have a Healthcare Power of Inventory Checker? No May 09, 2024 2:40am Living Will No September 26, 2023 8:44am Do you have a Healthcare Power of Inventory Checker? No December 10, 2023 12:04am Living Will No March 11 1:33am Do you have a Healthcare Power of Inventory Checker? No March 11, 2024 1:33am Advance Directives No November 9:04am Advance Directive Response Recorded Date/ Time Living Will No May 09, 2024 2:40am Do you have a Healthcare Power of Inventory Checker? No May 09, 2024 2:40am Living Will No June 09, 2024 12:23am Do you have a Healthcare Power of Inventory Checker? No June 09, 2024 12:23am Living Will No March 11 1:33am Do you have a Healthcare Power of Inventory Checker? No March 11, 2024 1:33am Advance Directives No November 9:04am Advance Directive Response Recorded Date/ Time Living Will No June 09, 2024 12:23am Do you have a Healthcare Power of Inventory Checker? No June 09, 2024 12:23am Living Will No August 09, 2024 1 2:04am Do you have a Healthcare Power of Inventory Checker? No August 09, 2024 12:04am Advance Directives No November 9:04am Chief Complaint and Reason for Visit Chief Complaint TYPE 2 DM TYPE 2 DM FEVER/DIARRHEA/VOMITING TYPE 2 DM TYPE 2 DM Reason for Visit Encounter for screen ing for COVID-19 Gastroenteritis Vomiting Chief Complaint TYPE 2 DM TYPE 2 DM FEVER/DIARRHEA/VOMITING TYPE 2 DM TYPE 2 DM TYPE 2 DM NEED ORDER arm and leg cramping Reason for Visit Encounter for screen ing for COVID-19 Gastroenteritis Vomiting Chief Complaint TYPE 2 DM FEVER/DIARRHEA/VOMITING TYPE 2 DM TYPE 2 DM NEED ORDER arm and leg cramping TYPE 2 DM Reason for Visit Encounter for screen ing for COVID-19 Gastroenteritis Vomiting Chief Complaint TYPE 2 DM Chief Complaint TYPE 2 DM CONGESTION/WHEEZING/SINUS PRESSURE Reason for Visit Contact with and (torres spected) exposure to other viral communicable diseases Chief Complaint TYPE 2 DM CONGESTION/WHEEZING/SINUS PRESSURE COUGH/BODY ACHES COUGH Reason for Visit Contact with and (torres spected) exposure to other viral communicable diseases Acute bronchitis Contact with and (suspected) exposure to other viral communicable diseases Chief Complaint CONGESTION/WHEEZING/ SINUS PRESSURE COUGH/BODY ACHES COUGH TYPE 2 DM Reason for Visit Contact with and (torres spected) exposure to other viral communicable diseases Acute bronchitis Contact with and (suspected) exposure to other viral communicable diseases Chief Complaint CONGESTION/WHEEZING/ SINUS PRESSURE COUGH/BODY ACHES COUGH TYPE 2 DM TYPE 2 DM Reason for Visit Contact with and (torres spected) exposure to other viral communicable diseases Acute bronchitis Contact with and (suspected) exposure to other viral communicable diseases Chief Complaint COUGH/BODY ACHES COUGH TYPE 2 DM TYPE 2 DM TYPE 2 DM Reason for Visit Acute bronchitis Contact with and (suspected) exposure to other viral communicable diseases Chief Complaint TYPE 2 DM TYPE 2 DM Chief Complaint TYPE 2 DM TYPE 2 DM TYPE 2 DM Chief Complaint TYPE 2 DM TYPE 2 DM TYPE 2 DM BREAST CALCIFICATION Chief Complaint TYPE 2 DM TYPE 2 DM BREAST CALCIFICATION TYPE 2 DM Chief Complaint TYPE 2 DM BREAST CALCIFICATION TYPE 2 DM ESTABLISH CARE, pt needs earlier time Reason for Visit Abnormal uterine ble eding (AUB) Routine gynecological examination Chief Complaint TYPE 2 DM BREAST CALCIFICATION TYPE 2 DM ESTABLISH CARE, pt needs earlier time TYPE 2 DM Reason for Visit Abnormal uterine ble eding (AUB) Routine gynecological examination Chief Complaint Admit Date TYPE 2 DM March 09, 2024 8:00am TYPE 2 DM April 14, 2024 6 :52am TYPE 2 DM June 04, 2024 6:5 6am Chief Complaint Admit Date TYPE 2 DM March 09, 2024 8:00am TYPE 2 DM April 14, 2024 6 :52am TYPE 2 DM June 04, 2024 6:5 6am URINE DROP OFF June 11, 2024 6:18 am Chief Complaint Admit Date TYPE 2 DM April 14, 2024 6 :52am TYPE 2 DM June 04, 2024 6:5 6am URINE DROP OFF June 11, 2024 6:18 am TYPE 2 DM July 23, 2024 6:59a m Chief Complaint Admit Date URINE DROP OFF June 11, 2024 6:18 am TYPE 2 DM July 23, 2024 6:59a m TYPE 2 DM September 24, 2024 7:14 am Chief Complaint Admit Date TYPE 2 DM July 23, 2024 6:59a m TYPE 2 DM September 24, 2024 7:14 am TYPE 2 DM November 03, 2024 7: 09am Additional Source Comments Source Comments (unrecognize d section and content) In the event this informatio n is protected by the Federal Confidentiality of Alcohol and Drug Abuse Patient Records regulations: The Federal rules restrict any use of the information to criminally investigate or prosecute any alcohol or drug abuse patient.[facility] the event this information is protected by the Federal Confidentiality of Alcohol and Drug Abuse Patient Records regulations: The Federal rules restrict any use of the information to criminally investigate or prosecute any alcohol or drug abuse patient.[facility] the event this information is protected by the Federal Confidentiality of Alcohol and Drug Abuse Patient Records regulations: The Federal rules restrict any use of the information to criminally investigate or prosecute any alcohol or drug abuse patient.[facility] the event this information is protected by the Federal Confidentiality of Alcohol and Drug Abuse Patient Records regulations: The Federal rules restrict any use of the information to criminally investigate or prosecute any alcohol or drug abuse patient.[facility] the event this information is protected by the Federal Confidentiality of Alcohol and Drug Abuse Patient Records regulations: The Federal rules restrict any use of the information to criminally investigate or prosecute any alcohol or drug abuse patient.[facility] the event this information is protected by the Federal Confidentiality of Alcohol and Drug Abuse Patient Records regulations: The Federal rules restrict any use of the information to criminally investigate or prosecute any alcohol or drug abuse patient.[facility] the event this information is protected by the Federal Confidentiality of Alcohol and Drug Abuse Patient Records regulations: The Federal rules restrict any use of the information to criminally investigate or prosecute any alcohol or drug abuse patient.[facility] the event this information is protected by the Federal Confidentiality of Alcohol and Drug Abuse Patient Records regulations: The Federal rules restrict any use of the information to criminally investigate or prosecute any alcohol or drug abuse patient.[facility] the event this information is protected by the Federal Confidentiality of Alcohol and Drug Abuse Patient Records regulations: The Federal rules restrict any use of the information to criminally investigate or prosecute any alcohol or drug abuse patient.[facility] the event this information is protected by the Federal Confidentiality of Alcohol and Drug Abuse Patient Records regulations: The Federal rules restrict any use of the information to criminally investigate or prosecute any alcohol or drug abuse patient.[facility] the event this information is protected by the Federal Confidentiality of Alcohol and Drug Abuse Patient Records regulations: The Federal rules restrict any use of the information to criminally investigate or prosecute any alcohol or drug abuse patient.[facility] the event this information is protected by the Federal Confidentiality of Alcohol and Drug Abuse Patient Records regulations: The Federal rules restrict any use of the information to criminally investigate or prosecute any alcohol or drug abuse patient.[facility] the event this information is protected by the Federal Confidentiality of Alcohol and Drug Abuse Patient Records regulations: The Federal rules restrict any use of the information to criminally investigate or prosecute any alcohol or drug abuse patient.[facility] the event this information is protected by the Federal Confidentiality of Alcohol and Drug Abuse Patient Records regulations: The Federal rules restrict any use of the information to criminally investigate or prosecute any alcohol or drug abuse patient.[facility] the event this information is protected by the Federal Confidentiality of Alcohol and Drug Abuse Patient Records regulations: The Federal rules restrict any use of the information to criminally investigate or prosecute any alcohol or drug abuse patient.[facility] the event this information is protected by the Federal Confidentiality of Alcohol and Drug Abuse Patient Records regulations: The Federal rules restrict any use of the information to criminally investigate or prosecute any alcohol or drug abuse patient.[facility] the event this information is protected by the Federal Confidentiality of Alcohol and Drug Abuse Patient Records regulations: The Federal rules restrict any use of the information to criminally investigate or prosecute any alcohol or drug abuse patient.[facility] the event this information is protected by the Federal Confidentiality of Alcohol and Drug Abuse Patient Records regulations: The Federal rules restrict any use of the information to criminally investigate or prosecute any alcohol or drug abuse patient.[facility] the event this information is protected by the Federal Confidentiality of Alcohol and Drug Abuse Patient Records regulations: The Federal rules restrict any use of the information to criminally investigate or prosecute any alcohol or drug abuse patient.[facility] the event this information is protected by the Federal Confidentiality of Alcohol and Drug Abuse Patient Records regulations: The Federal rules restrict any use of the information to criminally investigate or prosecute any alcohol or drug abuse patient.[facility] the event this information is protected by the Federal Confidentiality of Alcohol and Drug Abuse Patient Records regulations: The Federal rules restrict any use of the information to criminally investigate or prosecute any alcohol or drug abuse patient.[facility] the event this information is protected by the Federal Confidentiality of Alcohol and Drug Abuse Patient Records regulations: The Federal rules restrict any use of the information to criminally investigate or prosecute any alcohol or drug abuse patient.[facility] Teams (unrecognized sec tion and content) Wharf Labourer Relationship Specialty Start Date End Date Ion Williamsonyesenia, DO [address] [place] [address] PCP - General Family Practice 02/07/21 Jazmin Zazueta MD [address] F[address] BRE[address] [place], [place] [id number] Surgeon Breast Diseases 02/07/21 Wharf Labourer Relationship Specialty Start Date End Date Ion Williamson Karsten, DO [address] [place] [address] PCP - General Family Practice 02/07/21 Jazmin Zazueta MD [address] 1[address] FLR ACC BREAST CTR [place], [place] [id number] Surgeon Breast Diseases 02/07/21 Wharf Labourer Relationship Specialty Start Date End Date Ion Williamson Saira, DO [address] [place] [address] PCP - General Family Practice 02/07/21 Jazmin Zazueta MD [address] 1[address] FLR ACC BREAST CTR [place], [place] [id number] Surgeon Breast Diseases 02/07/21 Wharf Labourer Relationship Specialty Start Date End Date Ion Williamson Saira, DO [address] [place] [address] PCP - General Family Practice 02/07/21 Jazmin Zazueta MD [address] 1[address] F[address] ACC [address] [place], [place] [id number] Surgeon Breast Diseases 02/07/21 Wharf Labourer Relationship Specialty Start Date End Date Ion Williamson Saira, DO [address] [place] [address] PCP - General Family Practice 02/07/21 Jazmin Zazueta MD [address] 1[address] F[address] BRE[address] [facility] [place], [place] [id number] Surgeon Breast Diseases 02/07/21 Wharf Labourer Relationship Specialty Start Date End Date Ion Williamson, [address] [place] [address] PCP - General Family Practice 02/07/21 Jazmin Zazueta MD [address] 1[address] FLR ACC BREAST CTR [place], [place] [id number] Surgeon Breast Diseases 02/07/21 Wharf Labourer Relationship Specialty Start Date End Date Ion Williamson, [address] [place] [address] PCP - General Family Practice 02/07/21 Jazmin Zazueta MD [address] 1[address] F[address] [facility] [address] [place], [place] [id number] Surgeon Breast Diseases 02/07/21 Wharf Labourer Relationship Specialty Start Date End Date [facility] Ionlexus Ch[facility], [address] [place] [address] PCP - General Family Practice 02/07/21 Jazmin Zazueta MD [address] 1[address] FLR [facility] [place], [place] [id number] Surgeon Breast Diseases 02/07/21 Wharf Labourer Relationship Specialty Start Date End Date Ion Williamson, DO [address] [place] [address] PCP - General Family Practice 02/07/21 Jazmin Zazueta MD [address] F[address] [facility] [address] [place], [place] [id number] Surgeon Breast Diseases 02/07/21 Wharf Labourer Relationship Specialty Start Date End Date Ion Williamson, DO [address] [place] [address] PCP - General Family Practice 02/07/21 Jazmin Zazueta MD [address] FLR [facility] [address] [place], [place] [id number] Surgeon Breast Diseases 02/07/21 Team Status: Active Member Role Status Dates ION WILLIAMSON Family Provider Active Dr. Ion Williamson DO Primary Care Provider Active Team Status: Inactive Member Role Status Dates Dr. Ion Williamson DO Primary Care Provider, Refer ring Provider Active Catrachito HOANG, PA Attending Provider Active Team Status: Inactive Member Role Status Dates Dr. Ion Williamson DO Primary Care Provider, Refer ring Provider Active Nuno HOANG, PA Attending Provider Active Team Status: Inactive Member Role Status Dates Dr. Ion Williamson DO Primary Care Marcelino lozoya, Attending Provider, Referring Provider Active Team Status: Inactive Member Role Status Dates Dr. Ion Williamson DO Primary Care Provider Active Baldo Brooks MD Attending Provider, Emergency Provid er Active Wharf Labourer Relationship Specialty Start Date End Date Ion Williamson DO PCP - General Family Medicine 02/07/21 Jazmin Zazueta MD [address] F[address] [facility] [address] [place], [place] [id number] Surgeon Breast Diseases 02/07/21 Wharf Labourer Relationship Specialty Start Date End Date Ion Williamson DO PCP - General Family Medicine 02/07/21 Jazmin Zazueta MD [address] [place], [place] [id number] Surgeon Breast Diseases 02/07/21 Team Status: Active Member Role Status Dates Dr. Ion Williamson DO Primary Care P devora, Attending Provider, Referring Provider Active Wharf Labourer Relationship Specialty Start Date End Date Ion Williamson DO PCP - General Family Medicine 02/07/21 Jazmin Zazueta MD [address] [facility] [address] [place], [place] [id number] Surgeon Breast Diseases 02/07/21 Wharf Labourer Relationship Specialty Start Date End Date Ion Williamson DO PCP - General Family Medicine 02/07/21 Jazmin Zazueta MD [address] [facility] BRE[facility] [place], [place] [id number] Surgeon Breast Diseases 02/07/21 Wharf Labourer Relationship Specialty Start Date End Date Ion Williamson DO PCP - General Family Medicine 02/07/21 Jazmin Zazueta MD [address] [facility] [address] [place], [place] [id number] Surgeon Breast Diseases 02/07/21 Team Status: Inactive Member Role Status Dates Dr. Ion Williamson DO Primary Care Provider Active MARBIN HAM Attending Provider, Referring Provide r Active Wharf Labourer Relationship Specialty Start Date End Date Ion Williamson DO PCP - General Family Medicine 02/07/21 Jazmin Zazueta MD [address] 1[address] F[facility] BREAST [facility] [place], [place] [id number] Surgeon Breast Diseases 02/07/21 Wharf Labourer Relationship Specialty Start Date End Date Ion Williamson DO PCP - General Family Medicine 02/07/21 Jazmin Zazueta MD [address] 1[address] F[facility] [place], [place] [id number] Surgeon Breast Diseases 02/07/21 Team Status: Inactive Member Role Status Dates Dr. Ion Williamson , DO Primary Care Provider, Refer ring Provider Active Luisana Matos KETTLE HAND, KETTLE HAND-C Attending Provider Active Team Status: Inactive Member Role Status Dates Dr. Ion Williamson DO Primary Care Provider Active Luisana Matos KETTLE HAND, KETTLE HAND-C Attending Provider, Referring Provider Active Team Status: Active Member Role Status Dates Dr. Ion Williamson DO Primary Care Provider Active Luisana Matos KETTLE HAND, KETTLE HAND-C Attending Provider Active Team Status: Inactive Member Role Status Dates Dr. Ion Williamson DO Primary Care Provider Active Luisana Matos KETTLE HAND, KETTLE HAND-C Attending Provider Active Wharf Labourer Relationship Specialty Start Date End Date Ion Williamson DO PCP - General Family Medicine 02/07/21 Jazmin Zazueta MD [address] [place] [address] Surgeon Breast Diseases 02/07/21 Wharf Labourer Relationship Specialty Start Date End Date Ion Williamson DO [address] [place] [address] [phone] PCP - General Family Medicine 10/18/23 Robert Bruce MD [address] [address] Consulting Physician Gynecologic Oncology 10/16/23 Wharf Labourer Relationship Specialty Start Date End Date Ion Williamson DO [address] [place] [address] [phone] PCP - General Family Medicine 10/18/23 Robert Bruce MD [address] [address] Consulting Physician Gynecologic Oncology 10/16/23 Wharf Labourer Relationship Specialty Start Date End Date Ion Williamson DO [address] [place] [address] [phone] PCP - General Family Medicine 10/18/23 Robert Bruce MD [address] [address] Consulting Physician Gynecologic Oncology 10/16/23 Wharf Labourer Relationship Specialty Start Date End Date Ion Williamson DO [address] [place] [address] [phone] PCP - General Family Medicine 10/18/23 Robert Bruce MD 161 [facility] [address] [place] [address] Consulting Physician Gynecologic Oncology 10/16/23 Wharf Labourer Relationship Specialty Start Date End Date Ion Williamson DO [address] [place] [address] [phone] PCP - General Family Medicine 10/18/23 Robert Bruce MD 161 [facility] [address] [place] [address] Consulting Physician Gynecologic Oncology 10/16/23 Wharf Labourer Relationship Specialty Start Date End Date Ion Williamson DO [address] [place] [phone] PCP - General Family Medicine 10/18/23 Robert Bruce MD 161 [facility] [address] [place] [address] Consulting Physician Gynecologic Oncology 10/16/23 Wharf Labourer Relationship Specialty Start Date End Date Ion Williamson DO [address] [place] [phone] PCP - General Family Medicine 10/18/23 Robert Bruce MD 161 [facility] [address] [place] [address] Consulting Physician Gynecologic Oncology 10/16/23 Marisol Emery APRN - CT [address] [facility] [address] [place] [address] Nurse Practitioner Nurse Practitioner 12/02/23 Wharf Labourer Relationship Specialty Start Date End Date Ion Williamson DO [address] [place] [phone] PCP - General Family Medicine 10/18/23 Robert Bruce MD 161 [facility] [address] [place] [address] Consulting Physician Gynecologic Oncology 10/16/23 Marisol Emery APRN - CNP [address] [facility] [address] [place] [address] Nurse Practitioner Nurse Practitioner 12/02/23 Wharf Labourer Relationship Specialty Start Date End Date Ion Williamson DO [facility] [place] [phone] PCP - General Family Medicine 10/18/23 Robert Bruce MD 161 [facility] [address] [place] [address] Consulting Physician Gynecologic Oncology 10/16/23 Marisol Emery APRN - CNP [address] [facility] [address] [place] [address] Nurse Practitioner Nurse Practitioner 12/02/23 Wharf Labourer Relationship Specialty Start Date End Date Ion Williamson DO [facility] [place] [phone] PCP - General Family Medicine 10/18/23 Robert Bruce MD 161 [facility] [address] [place] [address] Consulting Physician Gynecologic Oncology 10/16/23 Marisol Emery APRN - CNP [address] [facility] [address] [place] [address] Nurse Practitioner Nurse Practitioner 12/02/23 Wharf Labourer Relationship Specialty Start Date End Date Ion Williamson DO [facility] [place] [phone] PCP - General Family Medicine 10/18/23 Robert Bruce MD 161 [facility] [address] [place] [address] Consulting Physician Gynecologic Oncology 10/16/23 Marisol Emery APRN - SUPERINTENDENT AUTOMOTIVE [address] [address] Nurse Practitioner Nurse Practitioner 12/02/23 Wharf Labourer Relationship Specialty Start Date End Date Ion Williamson DO [facility] [place] [phone] PCP - General Family Medicine 10/18/23 Robert Bruce MD [address] [address] Consulting Physician Gynecologic Oncology 10/16/23 Marisol Emery APRN - SUPERINTENDENT [employer]OM[employer]IVE [address] [address] Nurse Practitioner Nurse Practitioner 12/02/23 Wharf Labourer Relationship Specialty Start Date End Date Ion Williamson DO [facility] [place] [phone] PCP - General Family Medicine 10/18/23 Robert Bruce MD [address] [place] [address] Consulting Physician Gynecologic Oncology 10/16/23 Marisol Emery APRN - CNP [address] [facility] [address] [place] [address] Nurse Practitioner Nurse Practitioner 12/02/23 Wharf Labourer Relationship Specialty Start Date End Date Ion Williamson DO [facility] [place] [phone] PCP - General Family Medicine 10/18/23 Robert Bruce MD 161 [facility] [address] [place] [address] Consulting Physician Gynecologic Oncology 10/16/23 Marisol Emery APRN - CNP [address] [facility] [address] [place] [address] Nurse Practitioner Nurse Practitioner 12/02/23 Wharf Labourer Relationship Specialty Start Date End Date Ion Williamson DO [address] [place] [phone] PCP - General Family Medicine 10/18/23 Robert Bruce MD 161 [facility] [address] [place] [address] Consulting Physician Gynecologic Oncology 10/16/23 Marisol Emery APRN - CNP [address] [facility] [address] [place] [address] Nurse Practitioner Nurse Practitioner 12/02/23 Wharf Labourer Relationship Specialty Start Date End Date Ion Williamson DO [facility] [place] [phone] PCP - General Family Medicine 10/18/23 Robert Bruce MD [address] [address] Consulting Physician Gynecologic Oncology 10/16/23 Marisol Emery APRN - SUPERINTENDENT AUTOMOTIVE 161 [facility] [address] [place] [address] Nurse Practitioner Nurse Practitioner 12/02/23 Wharf Labourer Relationship Specialty Start Date End Date Ion Williamson DO [address] [place] [phone] PCP - General Family Medicine 10/18/23 Robert Bruce MD [address] [address] Consulting Physician Gynecologic Oncology 10/16/23 Marisol Emery APRN - SUPERINTENDENT AUTOMOTIVE 161 [facility] [address] [place] [address] Nurse Practitioner Nurse Practitioner 12/02/23 Team Status: Active Member Role Status Dates Dr. Ion Williamson DO Primary Care Provider Active Team Status: Inactive Member Role Status Dates Dr. Ion Williamson DO Primary Care Provider Active Start: March 09, 2024 End: March 09, 2024 Dr. Ion Williamson DO Attending Provider Active Start: March 09, 2024 End: March 09, 2024 Dr. Ion Williamson DO Referring Provider Active Start: March 09, 2024 End: March 09, 2024 Team Status: Inactive Member Role Status Dates Dr. Ion Williamson DO Primary Care Provider Active Start: March 09, 2024 End: March 10, 2024 Dr. Ion Williamson DO Attending Provider Active Start: March 09, 2024 End: March 10, 2024 Dr. Ion Williamson DO Referring Provider Active Start: March 09, 2024 End: March 10, 2024 Team Status: Inactive Member Role Status Dates Dr. Ion Williamson DO Primary Care Provider Active Start: April 14, 2024 End: May 08, 2024 Dr. Ion Williamson DO Attending Provider Active Start: April 14, 2024 End: May 08, 2024 Dr. Ion Williamson DO Referring Provider Active Start: April 14, 2024 End: May 08, 2024 Team Status: Inactive Member Role Status Dates Dr. oIn Williamson DO Primary Care Provider Active Start: June 04, 2024 End: June 08, 2024 Dr. Ion Williamson DO Attending Provider Active Start: June 04, 2024 End: June 08, 2024 Dr. Ion Williamson DO Referring Provider Active Start: June 04, 2024 End: June 08, 2024 Team Status: Inactive Member Role Status Dates ALEKSANDER BENTLEY Attending Provider Active Start: June 10, 2024 End: June 10, 2024 ALEKSANDER BENTLEY Referring Provider Active Start: June 10, 2024 End: June 10, 2024 Dr. Ion Williamson DO Primary Care Provider Active Start: June 10, 2024 End: June 10, 2024 Team Status: Active Member Role Status Dates ALEKSANDER BENTLEY Attending Provider Active Start: June 11, 2024 ALEKSANDER BENTLEY Referring Provider Active Start: June 11, 2024 Dr. Ion Williamson DO Primary Care Provider Active Start: June 11, 2024 Team Status: Inactive Member Role Status Dates ALEKSANDER BENTLEY Attending Provider Active Start: June 11, 2024 End: June 11, 2024 ALEKSANDER BENTLEY Referring Provider Active Start: June 11, 2024 End: June 11, 2024 Dr. Ion Williamson DO Primary Care Provider Active Start: June 11, 2024 End: June 11, 2024 Wharf Labourer Relationship Specialty Start Date End Date Ion Williamson DO [address] [place] [phone] PCP - General Family Medicine 10/18/23 Robert Bruce MD 161 [facility] [address] [place] [address] Consulting Physician Gynecologic Oncology 10/16/23 Marisol Emery APRN - SUPERINTENDENT AUTOMOTIVE [address] [facility] [address] [place] [address] Nurse Practitioner Nurse Practitioner 12/02/23 Wharf Labourer Relationship Specialty Start Date End Date Ion Williamson DO [address] [place] [phone] PCP - General Family Medicine 10/18/23 Robert Bruce MD 161 [facility] [address] [place] [address] Consulting Physician Gynecologic Oncology 10/16/23 Marisol Emery APRN - SUPERINTENDENT AUTOMOTIVE [address] [facility] [address] [place] [address] Nurse Practitioner Nurse Practitioner 12/02/23 Team Status: Inactive Member Role Status Dates Dr. Ion Williamson DO Primary Care Provider Active Start: July 23, 2024 End: August 08, 2024 Dr. Ion Williamson DO Attending Provider Active Start: July 23, 2024 End: August 08, 2024 Dr. Ion Williamson DO Referring Provider Active Start: July 23, 2024 End: August 08, 2024 Wharf Labourer Relationship Specialty Start Date End Date Ion Williamson DO [address] [place] [phone] PCP - General Family Medicine 10/18/23 Robert Bruce MD 161 [facility] [address] [place] [address] Consulting Physician Gynecologic Oncology 10/16/23 Marisol Emery APRN - SUPERINTENDENT AUTOMOTIVE [address] [facility] [address] [place] [address] Nurse Practitioner Nurse Practitioner 12/02/23 Wharf Labourer Relationship Specialty Start Date End Date Ion Williamson DO [address] [place] [address] [phone] PCP - General Family Medicine 10/18/23 Robert Bruce MD 161 [facility] [address] [place] [address] Consulting Physician Gynecologic Oncology 10/16/23 Marisol Emery APRN - SUPERINTENDENT AUTOMOTIVE [address] [facility] [address] [place] [address] Nurse Practitioner Nurse Practitioner 12/02/23 Team Status: Active Member Role/Relationship Status Dates Dr. Ion Williamson DO Primary Care Provider Active Team Status: Inactive Member Role/Relationship Status Dates ALEKSANDER BENTLEY Attending Provider Active Start: June 11, 2024 End: June 11, 2024 ALEKSANDER BENTLEY Referring Provider Active Start: June 11, 2024 End: June 11, 2024 Dr. Ion Williamson DO Primary Care Provider Active Start: June 11, 2024 End: June 11, 2024 Team Status: Inactive Member Role/Relationship Status Dates Dr. Ion Williamson DO Primary Care Provider Active Start: July 23, 2024 End: August 08, 2024 Dr. Ion Williamson DO Attending Provider Active Start: July 23, 2024 End: August 08, 2024 Dr. Ion Williamson DO Referring Provider Active Start: July 23, 2024 End: August 08, 2024 Team Status: Inactive Member Role/Relationship Status Dates Dr. Ion Williamson DO Primary Care Provider Active Start: September 24, 2024 End: October 08, 2024 Dr. Ion Williamson DO Attending Provider Active Start: September 24, 2024 End: October 08, 2024 Dr. Ion Williamson DO Referring Provider Active Start: September 24, 2024 End: October 08, 2024 Team Status: Inactive Member Role/Relationship Status Dates Dr. Ion Williamson DO Primary Care Provider Active Start: July 23, 2024 End: August 08, 2024 Dr. Ion Williamson DO Attending Provider Active Start: July 23, 2024 End: August 08, 2024 Dr. Ion Williamson DO Referring Provider Active Start: July 23, 2024 End: August 08, 2024 Team Status: Inactive Member Role/Relationship Status Dates Dr. Ion Williamson DO Primary Care Provider Active Start: September 24, 2024 End: October 08, 2024 Dr. Ion Williamson DO Attending Provider Active Start: September 24, 2024 End: October 08, 2024 Dr. Ion Williamson DO Referring Provider Active Start: September 24, 2024 End: October 08, 2024 Team Status: Inactive Member Role/Relationship Status Dates Dr. Ion Williamson DO Primary Care Provider Active Start: November 03, 2024 End: November 08, 2024 Dr. Ion Williamson DO Attending Provider Active Start: November 03, 2024 End: November 08, 2024 Dr. Ion Williamson DO Referring Provider Active Start: November 03, 2024 End: November 08, 2024 Reason for Visit (unrecogniz ed section and content) Reason Comments Breast Problem stereotactic biopsy due to breast calcifications Specialty Diagnoses / Procedures Referred By Erica miguel Referred To Contact General Surgery / GENERAL SURGERY Diagnoses right breast calcifications; films at [facility]; confirmed films received, per Mateo; additional films, right breast followed by Stereo biopsy (upright); ok'd by lobo; emailed and mailed appointment information Procedures NEW PATIENT VISIT LEVEL 4 NEW PATIENT Ion Williamson DO [address] [place] [address] Jazmin Zazueta MD [address] [place] [address] Referral ID Status Reason Start Date Expiration Date Visits Re quested Visits Authorized [id number] Closed 03/11/2020 03/10/2021 1 1 Specialty Diagnoses / Procedures Referred By Contact Referred To Contact RADIO MAMMO REFLECTIONS [facility] Diagnoses Right breast calcs 1-2:00-Ultrasound biopsy (2 times for accomodation) Procedures BREAST BIOPSY W/ULTRASOUND GUIDANCE ULTRASOUND BIOPSY Jazmin Zazueta MD [address] [place] [address] Radio Mammo Reflections [facility] [address] [place] [address] Referral ID Status Reason Start Date Expiration Date Visits Re quested Visits Authorized [id number] Closed 03/11/2020 03/10/2021 1 1 Reason Comments Results Specialty Diagnoses / Procedures Referred By Contac t Referred To Contact Diagnoses At high risk for breast cancer Procedures CONSULT TO MEDICAL GENETICS - CANCER GENETIC COUNSELING 30 MIN Jazmin Zazueta MD [address] [place] [address] [address] Referral ID Status Reason Start Date Expiration Date V isits Requested Visits Authorized [id number] Closed PCP Requested Referral Auto-Generated Referral 03/07/2021 06/05/2021 1 1 Reason Comments Paperwork for Wheelchair Reason Comments Results genetic testing nega tive Reason Comments 6 Month Exam Had mammogram 2 Reason Comments Follow Up Diabetes Results Reason Comments Follow Up Tests Results Specialty Diagnoses / Procedures Referred By Contac t Referred To Contact [facility] IMAGING Diagnoses Breast calcification, right Procedures GUILLERMINA DIAG W ROBERTO BILATERAL DIGITAL BREAST TOMOSYNTHESIS BILATERAL Jazmin Zazueta MD [address] [place] [address] Br Imaging [address] [place] [address] Referral ID Status Reason Start Date Expiration Date Visits Requested Visits Authorized [id number] Pending Review Auto-Generat ed Referral 11/09/2022 12/08/2023 1 1 Reason Comments Breast Problem Patient presents for a new LT axilla mass. Patient confirms palpability, as well as discomfort and itching. Patient denies any nipple abnormalities or nipple discharge. Reason Comments Results Reason Comments Female Problem Specialty Diagnoses / Procedures Referred By Erica t Referred To Contact Gynecologic Oncology Diagnoses Abnormal uterine and vaginal bleeding, unspecified Leiomyoma of uterus, unspecified Other cerebral palsy (HCC) Postmenopausal bleeding Procedures DE OFFICE/OUTPATIENT NEW HIGH MDM 60 MINUTES Ebony Vanessa [address] [place] [address] [facility] [address] [facility] [address] [place] [phone] Referral ID Status Reason Start Date Expiration Date V isits Requested Visits Authorized [id number] Pending Review 10/16/2023 10/15/2024 1 1 Reason Onset Date Comments Other 2023 Surgery [facility] Reason Onset Date Comments Appointment 10/16/2023 Specialty Diagnoses / Procedures Referred By Erica Referred To Contact Diagnoses Intra-abdominal and pelvic swelling, mass and lump, unspecified site Procedures DE TOTAL ABDOMINAL HYSTERECT W/WO RMVL TUBE OVARY TOTAL ABDOMINAL HYSTERECTOMY BILATERAL SALPINGO OOPHORECTOMY Robert Bruce MD [address] [facility] [address] [place] [address] [address] [place] [address] Referral ID Status Reason Start Date Expiration Date Visits Re quested Visits Authorized [id number] 1 1 Reason Onset Date Comments Other 12/05/2023 Bleeding questio n Reason Onset Date Comments Other 01/02/2024 Readings Reason Comments Diabetes Mellitus Reason Onset Date Comments Post-op Problem 12/03/2023 Reason Comments Post-op Visit Pain is much better, still some bleeding. Reason Onset Date Comments Advice Only 01/30/2024 Reason Onset Date Comments Other 01/31/2024 Reason Onset Date Comments Other 02/20/2024 Blood Glucose Lo g Reason Onset Date Comments Medication Problem 02/27/2024 Reason Comments Diabetes Mellitus Reason Comments Diabetes Reason Onset Date Comments Appointment 06/18/2024 Reason Onset Date Comments Diabetes 04/21/2024 Dexcom readings Reason Onset Date Comments Other 06/09/2024 Questions & Clar ifications Reason Comments Med Refill Reason Onset Date Comments Med Refill 09/14/2024 INFORMATION SOURCE (unrecogn ized section and content) DATE CREATED AUTHOR 05/06/2021 [facility] [place] DATE CREATED AUTHOR AUTHOR'S ORGANIZ ATION 09/15/2021 [facility] DATE CREATED AUTHOR AUTHOR'S ORGANIZ ATION 10/20/2021 [facility] DATE CREATED AUTHOR AUTHOR'S ORGANIZ ATION 07/06/2023 [facility] DATE CREATED AUTHOR AUTHOR'S ORGANIZ ATION 09/25/2024 [facility] DATE CREATED AUTHOR AUTHOR'S ORGANIZ ATION 11/09/2024 [facility] Goals (unrecognized section and content) Goals may be documented in a n alternate sectionGoals may be documented in an alternate sectionGoals may be documented in an alternate sectionGoals may be documented in an alternate sectionGoals may be documented in an alternate sectionGoals may be documented in an alternate sectionGoals may be documented in an alternate sectionGoals may be documented in an alternate sectionGoals may be documented in an alternate sectionGoals may be documented in an alternate sectionGoals may be documented in an alternate sectionGoals may be documented in an alternate sectionGoals may be documented in an alternate sectionGoals may be documented in an alternate sectionGoals may be documented in an alternate sectionGoals may be documented in an alternate sectionGoals may be documented in an alternate sectionGoals may be documented in an alternate sectionGoals may be documented in an alternate sectionGoals may be documented in an alternate sectionGoals may be documented in an alternate sectionGoals may be documented in an alternate sectionGoals may be documented in an alternate sectionGoals may be documented in an alternate sectionGoals may be documented in an alternate sectionGoals may be documented in an alternate sectionGoals may be documented in an alternate sectionGoals may be documented in an alternate section Scheduled Active and Recently Administ ered Medications (unrecognized section and content) Medication Order 11/27/2023 11/28/2023 11/29/2023 acetaminophen (Tylenol) tablet 1,000 mg 1,000 mg, Oral, Every 6 hours, First dose on Sat11/26/23 at 1045, Maximum dose of acetaminophen is 4000 mg from all sources in 24 hours. 0549 (Given - Provider: Melida Sahu RN)1124 (Given - Provider: Collette Choudhury RN)1624 (Given - Provider: Collette Choudhury RN)2340 (Given - Provider: Melida Sahu RN) 0550 (Given - Provider: Melida Sahu RN)1045 (Not Given - Provider: Collette Choudhury RN - Reason: Patient/family refused)1601 (Not Given - Provider: Collette Choudhury RN - Reason: Patient/family refused)2200 (Not Given - Provider: Melida Sahu RN - Reason: Patient/family refused) 0500 (Not Given - Provider: Melida Sahu RN - Reason: Patient/family refused)0822 (Not Given - Provider: Swapna Katz, REMEDIOS - Reason: Patient/family refused) ceFAZolin in dextrose 4% (Ancef) IVPB 2,000 mg (COMPLETED) 2,000 mg, IntraVENous, Administer over 30 Minutes, Every 8 hours, First dose on Sat11/26/23 at 1045, For 24 hours, premix bag, Suspected Indication (Select all that apply): Surgical Prophylaxis 0549 (New Bag - Provider: Melida Sahu RN)0619 (Stopped - Provider: Melida Sahu RN) enoxaparin (Lovenox) syringe 40 mg 40 mg, SubCUTAneous, Every 24 hours scheduled (Daily), First dose on Sat11/27/23 at 0900, Indication of Use: Prophylaxis-DVT/PE, Indications: Prophylaxis of Venous Thromboembolism 0928 (Given - Provider: Collette Choudhury RN) 0917 (Given - Provider: Collette Choudhury, REMEDIOS) 0823 (Given - Provider: Swapna Katz, REMEDIOS) glipiZIDE (Glucotrol) tablet 5 mg (CANCELED) 5 mg, Oral, 2 times daily before meals, First dose (after last modification) on Sat11/26/23 at 2045, Substituted for glimepiride (Amaryl). 0928 (Given - Provider: Collette Choudhury RN) hydroCHLOROthiazide (HYDRODiuril) tablet 50 mg 50 mg, Oral, Daily, First dose on Sat11/27/23 at 0900, Substituted for Indapamide (LOZOL). 0928 (Given - Provider: Collette Choudhury RN) 0917 (Given - Provider: Collette Choudhury RN) 0823 (Given - Provider: Swapna Katz, REMEDIOS) ibuprofen tablet 600 mg(Linked Group 1) 600 mg, Oral, Every 6 hours, First dose on Sat11/27/23 at 1800 1836 (Given - Provider: Collette Choudhury RN)2340 (Given - Provider: Melida Sahu RN) 0550 (Given - Provider: Melida Sahu, RN)1200 (Not Given - Provider: Collette Choudhury RN - Reason: Patient/family refused)1800 (Not Given - Provider: Collette Choudhury RN - Reason: Patient/family refused) 0017 (Given - Provider: Melida Sahu RN)0546 (Given - Provider: Melida Sahu, RN)1359 (Given - Provider: Swapna Katz, REMEDIOS) insulin glargine (Lantus) injection 15 Units (COMPLETED) 15 Units, SubCUTAneous, Once, On Sat11/27/23 at 1045, For 1 dose 1127 (Given - Provider: Collette Choudhury, REMEDIOS) insulin glargine (Lantus) injection 20 Units 20 Units, SubCUTAneous, Every morning, First dose (after last modification) on Sat11/28/23 at 0915 1123 (Given - Provider: Jann Morfin RN) 0823 (Given - Provider: Swapna Katz, REMEDIOS) Insulin Lispro (Humalog) injection 0-12 Units 0-12 Units, SubCUTAneous, 3 times daily with meals, First dose on Sat11/27/23 at 1200, Medium Dose Correction Algorithm Glucose: Dose: LESS than 139 No Insulin 140-199 2 Unit 200-249 4 Units 250-299 6 Units 300-349 8 Units 350-400 10 Units Above 400 12 Units 1254 (Given - Provider: Collette Choudhury RN)1641 (Given - Provider: Collette Choudhury RN) 0920 (Given - Provider: Collette Choudhury RN)1158 (Given - Provider: Collette Choudhury RN)1747 (Given - Provider: Collette Choudhury RN) 0824 (Given - Provider: Swapna Katz, RN)1359 (Given - Provider: Swapna Katz, RN) Insulin Lispro (Humalog) injection 0-18 Units (CANCELED)(Linked Group 2) 0-18 Units, SubCUTAneous, 3 times daily with meals, First dose on Sat11/26/23 at 1700, High Dose Correction Algorithm Glucose: Dose: LESS than 139 No Insulin 140-199 3 Unit 200-249 6 Units 250-299 9 Units 300-349 12 Units 350-400 15 Units Above 400 18 Units 0803 (Given - Provider: Collette Choudhury RN) Insulin Lispro (Humalog) injection 5 Units (CANCELED) 5 Units, SubCUTAneous, 3 times daily with meals, First dose on Sat11/27/23 at 1200 1254 (Given - Provider: Collette Choudhury RN)1641 (Given - Provider: Collette Choudhury RN) 0800 (Not Given - Provider: Collette Choudhury RN - Reason: Other - Comment: D/C'd) Insulin Lispro (Humalog) injection 7 Units 7 Units, SubCUTAneous, 3 times daily with meals, First dose (after last modification) on Sat11/28/23 at 1200 1157 (Given - Provider: Collette Choudhury RN)1747 (Given - Provider: Collette Choudhury RN) 0823 (Given - Provider: Swapna Katz, REMEDIOS)1359 (Given - Provider: Swapna Katz, REMEDIOS) insulin NPH (Isophane) (HumuLIN N,NovoLIN N) injection 10 Units (COMPLETED) 10 Units, SubCUTAneous, Once, On Sat11/27/23 at 2030, For 1 dose 2048 (Given - Provider: Melida Sahu, REMEDIOS) ketorolac (Toradol) injection 30 mg (COMPLETED)(Linked Group 1) 30 mg, IntraVENous, Every 6 hours scheduled (4 times per day), First dose on Sat11/26/23 at 1800, For 24 hours 0022 (Given - Provider: Melida Sahu, RN)0549 (Given - Provider: Melida Sahu, RN)1124 (Given - Provider: Collette Choudhury RN) polyethylene glycol (PEG) 3350 (Miralax) packet 17 g 17 g, Oral, Daily, First dose on Sat11/26/23 at 1400, Phase II/On Unit, 1st line for treatment of constipation - give scheduled if no bowel movement in past 24 hours. 0800 (Not Given - Provider: Collette Choudhury RN - Reason: Other)0929 (Given - Provider: Collette Choudhury, REMEDIOS) 0917 (Given - Provider: Collette Choudhury, REMEDIOS) 0900 (Not Given - Provider: Swapna Katz, REMEDIOS - Reason: Patient/family refused) sodium chloride 0.9% (NS) flush 10 mL 10 mL, IntraVENous, Every 12 hours scheduled (2 times per day), First dose on Sat11/26/23 at 2100, Phase II/On Unit 0936 (Not Given - Provider: Collette Choudhury RN - Reason: IV Fluids Infusing)2010 (Given - Provider: Melida Sahu RN) 0900 (Given - Provider: Collette Choudhury RN)2116 (Given - Provider: Melida Sahu RN) 0825 (Given - Provider: Swapna Katz, RN) Continuous Medication Order 11/27/2023 11/28/2023 11/29/2023 lactated Ringer's (LR) infusion 50 mL/hr, IntraVENous, Continuous, Starting on Sat11/26/23 at 0830, Preprocedure, Upon admission to sameday - please start iv if patient does not have iv access. Use 500ml NS for patients on dialysis. lactated Ringer's infusion (CANCELED) 125 mL/hr, IntraVENous, Continuous, Starting on Sat11/26/23 at 1045, For 12 hours 0023 (New Bag - Provider: Melida Sahu RN) PRN Medication Order 11/27/2023 11/28/2023 11/29/2023 albuterol 108 (90 Base) MCG/ACT inhaler 2 puff 2 puff, Inhalation, Every 6 hours PRN, wheezing, Starting on Sat11/26/23 at 1038, @@@COMMON CANISTER@@@ dextrose 5 % infusion 100 mL/hr, IntraVENous, PRN, Blood sugar less than 70mg/dL, Starting on Sat11/26/23 at 1609, Start infusion following administration of dextrose 50% or glucagon. dextrose 50 % solution 12.5 g 12.5 g, IntraVENous, PRN, low blood sugar, Blood glucose less than 70 mg/dL and patient NOT ALERT or NPO., Starting on Sat11/26/23 at 1609, If patient does not respond within 5 minutes, repeat dose x1. Start D5W at 100 mL/hour until ordering provider can be reached. Repeat blood glucose in 15 minutes. If blood glucose is less than 70 mg/dL, repeat treatment and recheck blood glucose in 15 minutes x2. If using Glucostabilizer, dose as instructed per system. glucagon (human recombinant) injection 1 mg 1 mg, IntraMUSCular, PRN, low blood sugar, Blood glucose less than 70 mg/dL and patient NOT ALERT or NPO and does not have IV access., Starting on Sat11/26/23 at 1609, After administration, attempt intravenous access and start D5W at 100 mL/hr. Repeat blood glucose in 15 minutes x2 and notify provider. glucose oral gel 15 g 15 g, Oral, As needed, low blood sugar, Starting on Sat11/26/23 at 1609, If blood glucose less than 50 mg/dL and patient ALERT and NOT NPO, give 2 tubes glucose gel. If blood glucose less than 70 mg/dL and patient ALERT and NOT NPO, give 1 tube glucose gel. Repeat blood glucose in 15 minutes. If blood glucose is less than 70 mg/dL, repeat treatment and recheck blood glucose in 15 minutes x2 and notify provider. naloxone (Narcan) injection 0.4 mg 0.4 mg, IntraVENous, Every 5 min PRN, opioid reversal, respiratory depression, Starting on Sat11/26/23 at 1401, +++ For RR <10, pinpoint pupils, over sedation for opioid reversal - MUST notify production tech provider immediately after first dose, may give IM or SQ if no IV access +++ ondansetron (Zofran) injection 4 mg(Linked Group 3) 4 mg, IntraVENous, Every 6 hours PRN, nausea, vomiting, Starting on Sat11/26/23 at 1349, Phase II/On Unit, 1st Line. Give IV if patient is unable to take orally. If inadequate response within 60 minutes, proceed to next-line agent or contact provider if no further options ordered. ondansetron ODT (Zofran-ODT) disintegrating tablet 4 mg(Linked Group 3) 4 mg, Oral, Every 8 hours PRN, nausea, vomiting, Starting on Sat11/26/23 at 1349, Phase II/On Unit, 1st Line. If inadequate response within 60 minutes, proceed to next-line agent or contact provider if no further options ordered. Patient should allow tablet to dissolve on tongue. Do not remove from blister pack until just before administering. oxyCODONE (Roxicodone) immediate release tablet 10 mg(Linked Group 4) 10 mg, Oral, Every 4 hours PRN, severe pain (7-10), Starting on Sat11/26/23 at 1349, Phase II/On Unit 0917 (Given - Provider: Amalia Choudhury RN)1600 (Given - Provider: Collette Choudhury RN)2112 (Given - Provider: Melida Sahu RN) oxyCODONE (Roxicodone) immediate release tablet 5 mg(Linked Group 4) 5 mg, Oral, Every 4 hours PRN, moderate pain (4-6), Starting on Sat11/26/23 at 1349, Phase II/On Unit 0917 (See Alternative - Provider: Collette Choudhury RN)1600 (See Alternative - Provider: Collette Choudhury RN)2112 (See Alternative - Provider: Melida Sahu RN) senna-docusate sodium (Senokot-S) 8.6-50 MG tablet 2 tablet 2 tablet, Oral, Daily PRN, constipation, Starting on Sat11/26/23 at 1042 2112 (Given - Provider: Jeff Sahu RN) sodium chloride 0.9 % infusion 5-250 mL/hr, IntraVENous, PRN, if patient receiving piggyback infusions and maintenance fluids are not ordered OR KVO fluids to protect IV site / prevent frequent line interruptions/ long duration, Starting on Sat11/26/23 at 1349, Phase II/On Unit, For piggyback infusion, administer at same rate as piggyback for a total of 25 mL. Enter 25 mL into dose field and piggyback rate into rate field of order. If piggyback is infusing at a rate less than 100 mL/hr, enter 25 mL into dose field and 100 mL/hr into rate field of order. For KVO fluids, enter rate of 20 mL/hr or less into rate field of order. sodium chloride 0.9% (NS) flush 10 mL 10 mL, IntraVENous, PRN, line care, Starting on Sat11/26/23 at 1349, Phase II/On Unit, After every IV line use Linked Groups Order Group 1: ketorolac (Toradol) injection 30 mg (COMPLETED)Jump to med 30 mg, IntraVENous, Every 6 hours scheduled (4 times per day), First dose on Sat11/26/23 at 1800, For 24 hours Followed by ibuprofen tablet 600 mgJump to med 600 mg, Oral, Every 6 hours, First dose on Sat11/27/23 at 1800 Group 2: Insulin Lispro (Humalog) injection 0-18 Units (CANCELED)Jump to med 0-18 Units, SubCUTAneous, 3 times daily with meals, First dose on Sat11/26/23 at 1700, High Dose Correction Algorithm Glucose: Dose: LESS than 139 No Insulin 140-199 3 Unit 200-249 6 Units 250-299 9 Units 300-349 12 Units 350-400 15 Units Above 400 18 Units And Insulin Lispro (Humalog) injection 0-18 Units (CANCELED) 0-18 Units, SubCUTAneous, Nightly, First dose on Sat11/26/23 at 2100, If continuous tube feedings/TPN/NPO, give correction dose based on result, no reduction in dose. If eating or bolus tube feeding: High Dose Correction Algorithm Glucose: Dose: LESS than 139 No Insulin 140-199 3 Unit 200-249 6 Units 250-299 9 Units 300-349 12 Units 350-400 15 Units Above 400 18 Units Group 3: ondansetron ODT (Zofran-ODT) disintegrating tablet 4 mgJump to med 4 mg, Oral, Every 8 hours PRN, nausea, vomiting, Starting on Sat11/26/23 at 1349, Phase II/On Unit, 1st Line. If inadequate response within 60 minutes, proceed to next-line agent or contact provider if no further options ordered. Patient should allow tablet to dissolve on tongue. Do not remove from blister pack until just before administering. Or ondansetron (Zofran) injection 4 mgJump to med 4 mg, IntraVENous, Every 6 hours PRN, nausea, vomiting, Starting on Sat11/26/23 at 1349, Phase II/On Unit, 1st Line. Give IV if patient is unable to take orally. If inadequate response within 60 minutes, proceed to next-line agent or contact provider if no further options ordered. Group 4: oxyCODONE (Roxicodone) immediate release tablet 5 mgJump to med 5 mg, Oral, Every 4 hours PRN, moderate pain (4-6), Starting on Sat11/26/23 at 1349, Phase II/On Unit Or oxyCODONE (Roxicodone) immediate release tablet 10 mgJump to med 10 mg, Oral, Every 4 hours PRN, severe pain (7-10), Starting on Sat11/26/23 at 1349, Phase II/On Unit FOR RECORDS PERTAINING TO PATIENTS WHO ARE OR HAVE BEEN ENROLLED IN A CHEMICAL DEPENDENCY/SUBSTANCEABUSE PROGRAM, SOME INFORMATION MAY BE OMITTED. This clinical summary was aggregated from multiple sources. Caution should be exercised in using it in the provision of clinical care. This summary normalizes information from multiple sources, and as a consequence, information in this document may materially change the coding, format and clinical context of patient data. In addition, data may be omitted in some cases. CLINICAL DECISIONS SHOULD BE BASED ON THE PRIMARY CLINICAL RECORDS. [facility] provides no warranty or guarantee of the accuracy or completeness of information in this document.
--- OUTSIDE RECORDS SUMMARY | 2024-12-14 06:27 | XMS RPT_ITS | CCD ---
Author Organization [facility] CliniSyms Care Team Providers Care Histological Illustrator Name Role Phone Ion Williamson DO Primary Care Provide r Marbin SORENSON, Jazmin De La Garza Unavailable Dr. Ion Williamson Primary Care Provider Dr. Ion Williamson Referring Provider SOPHIA Maya Attending Provider Ion Williamson DO Primary Care Provide r Jazmin Zazueta MD Unavailable Dr. Ion Williamson Primary Care Provider Dr. Ion Williamson Referring Provider [phone] VIKTOR Busch Attending Provider VIKTOR Mariano Attending Provider [phone] Dr. Ion Williamson Primary Care Provider Dr. Ion Williamson Referring Provider Ion Williamson DO Primary Care Provider Jazmin Zazueta MD Unavailable [phone] Ion Williamson Primary Care Provider Dr. Ion Williamson Referring Provider VIKTOR Mariano Attending Provider Jazmin Zazueta MD Unavailable Ion Williamson DO Primary Care Provider [phone] Dr. Ion Williamson Primary Care Provider Dr. Ion Williamson Referring Provider Shawan HEEL BLACKER, SOPHIA Lieberman Attending Provider Ion Williamson DO [...] Dr. Ion Williamson DO Attending Provider [phone] Dr. Ion Williamson DO Referring Provider [phone] SAUL ARMIJO Attending Provider SAUL ARMIJO Referring Provider SAUL ARMIJO Attending Provider SAUL ARMIJO Referring Provider Dr. Ion Williamson DO Primary Care Provider Dr. Ion Williamson DO Attending Provider Dr. Ion Williamson DO Referring Provider ION WILLIAMSON Primary Care Unavailable SAUL ARMIJO [...] Tamburisaac DO, Dr. Lemon Primary Care Provider [facility] DO, Dr. Lemon Attending Provider [facility] DO, Dr. Lemon Referring Provider [facility] DO, Dr. Lemon Primary Care Provider Ankitro, [...] Translations: [AMOXICILLIN] Drug Allergy 08-09-2014 GI Upset [facility] (1 source) Amoxicillin Drug Allergy 10-14-2023 [facility] Repository Medications Current Medications Medication Drug [...] hyperglycemia, with long-term current use of insulin ([facility]) Administer 3 mg into affected nostril(s) Once as needed for low blood sugar. 2 each 3 01/14/2024 Active Start: 01-14-2024 End: 01-14-2024 inject 0.2 mL by subcutaneous injection once as needed glucagon (Gvoke HypoPen 2-Pack) 1 MG/0.2ML injection Indications: Type 2 diabetes mellitus with hyperglycemia, with long-term current use of insulin ([facility]) Inject 0.2 mL (1 mg) [...] hyperglycemia, with long-term current use of insulin ([facility]) Chew 4 tablets (16 g) [...] Comment on above: Take 2 tablets by [facility] as needed. acetaminophen 325 mg / chlorpheniramine [...] 10, 2014 12:00am August 09, 2014 1:00pm [id number] 200 actuat albuter ol 0.09 mg/actuat metered [...] 12/09/2023 docusate sodium 50 mg / sennosides, long term 8.6 mg oral tablet (2 sources) Start: [...] Start: 11-26-2023 End: 11-26-2023 0-12 Units, SubCUTAneous, IA N, high blood sugar, Surgery patient, Starting [...] release tablet 5 mg polyethylene glycol 3350 04204 mg powder for oral solution (2 sources) [...] 07-06-2020 09-12-2021 Episodic Other aftercare (2 sources) meterman (current) use of insulin; Translations: [meterman (current) use of insulin (HCC)] Onset: 03-18-2024 [...] Test Name Value Interpretation Reference Range Facility [facility] 09-22-2024 37 *Please arrive 15 minutes prior [...] shoaib, please send me a message via DECA or call [phone] so we can address your needs *Please [...] can adjust your plan of care. Normal [facility] AMB POC HEMOGLOBIN [id number] d By: Jazmin Guerra on 09-22-2024 HbA1c (Bld) [Mass fraction] 6.3 % Abnormal - 5.7 % [facility] HbA1c (Bld) [Mass fraction]O rdered By: Jazmin Guerra on 09-22-2024 Interpretation and review of laboratory results Abnormal [facility] Office Visiton 09-22-2024 Follow-up visit [id number] Taylor Wesley 1965 F Date Provider Department Center 09/22/2024 [id number] ARMIJO [facility] None Family History Problem Relation Age of Onset Breast cancer Mother Diabetes Maternal Grandmother Family Status - Relation Status Age at Mother Maternal Grandmother Level of Service:63565 [place] OFFICE/OUTPATIENT ESTABLISHED MOD MDM 30 MIN Reason for Visit and Comments: Diabetes [34] Normal [facility] Progress Noteon 09-22-2024 Progress Note [facility] [address] [place] [address] Dept: [phone] Dept Loc: [phone] Visit type: Established Patient Reason for Visit: [...] office to be requested. UACR results from [place] [x] Scripts sent to pharmacy of choice. No follow-ups on file. Diagnostic Data Reviewed Today: CGM AGP Reviewed: Yes Subjective HPI PCP: Ion Williamson DO DSME: 01/14/2024-Johnna; general ed Since RANDY: RANDY 06/2024 w/ me Insulin DC ~08/21/2024 re: improved trends TIR 70s per pt Still following w/ RD in [place] Hospitalizations/Surge weston: Denies Medication Cost Concerns: Denies Missed Medication Doses: Denies Medication Side Effect: Endorses- some constipation w/ Mounjaro; alleviated w/ prunes Recent Steroid use: Endorses Recent Weight Changes: Denies- stable 183 Exercise Patterns: ADLs. Wheelchair-bound. Dietary Patterns: when out of school: 6-10am/130p/7pm; in school schedule: 5a//7p Employment/Lifestyle Patterns/Schedule Alterations: Works at [employer]. 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 Dog Races Manager: ALISSON HTN: Endorses HLD: Denies- statin started [...] Allergies Allergen React (more content not included)... [facility] 09-14-2024 36 Left voicemail relaying the message from Saul. [facility] 36 1 year supply sent 4 days ago Please make pt aware she needs to request from pharmacy not our office [facility] 09-07-2024 36 Called pharmacy and there is still refills on file [facility] 06-18-2024 29 Addended by: SAUL ARMIJO on: 06/18/2024 12:10 PM Modules accepted: Orders [facility] 06-18-2024 36 Pt arrived late to appt will still need assessed please [facility] 36 Name of Caller: Rossana contreras Contact Reason for Appointment: Pt has an appt at 8 am and is stuck in traffic. Pt stated she should be there right around 8. Please advise Office Name: endo Medication Refills need, if any: na Medication Name: na [facility] 06-18-2024 37 *Please arrive 15 minutes prior [...] shoaib, please send me a message via DECA or call [phone] so we can address your needs *Please [...] can adjust your plan of care. Normal [facility] Office Visiton 06-18-2024 Follow-up visit [id number] Taylor Wesley 1965 F Date Provider Department Center 06/18/2024 [id number] ARMIJO [facility] ENDO None Family History Problem Relation Age of Onset Breast cancer Mother Diabetes Maternal Grandmother Family Status - Relation Status Age at Mother Maternal Grandmother Level of Service:48631 [place] OFFICE/OUTPATIENT ESTABLISHED MOD MDM 30 MIN Reason for Visit and Comments: Diabetes [34] Normal [facility] Progress Noteon 06-18-2024 Progress Note Result entered Normal [facility] Progress Note [facility] [address] [address] Dept: [phone] Dept Loc: [phone] Visit type: Established Patient Reason for Visit: [...] higher protein Employment/Lifestyle Patterns/Schedule Alterations: Works at [employer]. 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 Dog Races Manager: ALISSON HTN: Endorses HLD: Denies- statin started [...] Outpatient Medic (more content not included)... Normal [facility] Albumin DL <= 20 mg/L (U) [M ass/Vol]on 06-11-2024 Urine Random Microalbumin < 12.0 mg/L NO RANGE EST. [facility] Creatinine Unsp time (U) [Ma ss/Vol]on 06-11-2024 Creatinine (U) [Mass/Vol] 49.00 mg/dL 28.00-217 .00 [facility] Microalb:Creat Ratio,Random URon 06-11-2024 Creatinine [Mass/Vol] 49.00 mg/dL Normal 28.00-217.00 [facility] Comment on above: Performed By: #### L 502.0250 #### [facility] [address] [place], [address] MALB:CREAT UNABLE TO CALCULATE Normal [facility] Comment on above: Performed By: #### L 502.0250 #### [facility] [address] [place], [place], [address] MICROALBUMIN,UR < 12.0 Normal NO RANGE EST. [facility] Comment on above: Performed By: #### L 502.0250 #### [facility] [address] [place], [place], [id number] Microalbumin/creat ratio uro n 06-11-2024 Urine Microalbumin/Creatinine Ratio UNABLE TO CALCULATE mg/g CRE [facility] Urine microalbumin/creatinine ratio measurement UNABLE TO CALCULATE mg/g CRE [facility] Random urine creatinine aj urement (mass/volume)on 06-11-2024 Creatinine Unsp time (U) [Mass/Vol] 49.00 mg/dL 28.00-217.00 [facility] Urine albumin measurement [facility] detection limit of 20 mg/L or less (mass/volume)on 06-11-2024 Albumin DL <= 20 mg/L (U) [Mass/Vol] < 12.0 mg/L NO RANGE EST. [facility] 36on 06-10-2024 36 Per Saul's note, patient is due for fasting labs prior to next visit. I do not see where she is to hold her insulin. I do see where she is supposed to hold any gcie-fdz-abfqcop supplements she may be on 5 days prior to her labs as this can lead to some of the results. Normal [facility] Anion gap in Serum or Plasma on 06-10-2024 Anion gap [Moles/Vol] 12 mmol/L 5-15 [facility] BUN/creatinine ratioon 06-10 Urea nitrogen/Creatinine [Mass ratio] 26.3 mg/mg High 10-20 [facility] Bilirubin, totalon Bilirubin [Mass/Vol] 0.62 mg/dL 0.00-1.30 [facility] Calculated very low density lipoprotein (VLDL) cholesterol measurementon 06-10-2024 Calculated very low density lipoprotein (VLDL) cholesterol measurement 26 mg/dL 5-40 [facility] VLDL Cholesterol 26 mg/dL 5-40 [facility] Carbon dioxide, total [Moles /volume] in Central venous bloodon 06-10-2024 CO2 [Moles/Vol] 26.6 mmol/L 21.0-32.0 [facility] Chloride assayon 06-10-2024 Chloride [Moles/Vol] 100 mmol/L 98-108 [facility] Comprehensive Metabolic Prof ilon 06-10-2024 Albumin [Mass/Vol] 3.9 g/dL Normal 3.5-5.0 [facility] Comment on above: Order Comment: A Performed By: #### L 502.0250, L501.9520, L500.4100, L506.0400, L500.4050, L501.9985 #### [facility] [address] [place], [address] Albumin/Globulin [Mass ratio] 1.0 {ratio} Normal 0.9-2.4 [facility] Comment on above: Order Comment: A Performed By: #### L 502.0250, L501.9520, L500.4100, L506.0400, L500.4050, L501.9985 #### [facility] [address] [place], [address] ALK PHOS 82 U/L Normal 35-104 [facility] Comment on above: Order Comment: A Performed By: #### L 502.0250, L501.9520, L500.4100, L506.0400, L500.4050, L501.9985 #### [facility] [address] [place], [address] ALT [Catalytic activity/Vol] 30 U/L Normal <=34 [facility] Comment on above: Order Comment: A Performed By: #### L 502.0250, L501.9520, L500.4100, L506.0400, L500.4050, L501.9985 #### [facility] [address] [place], [address] AST [Catalytic activity/Vol] 30 U/L Normal <=31 [facility] Comment on above: Order Comment: A Performed By: #### L 502.0250, L501.9520, L500.4100, L506.0400, L500.4050, L501.9985 #### [facility] [address] [place], [address] Bilirubin [Mass/Vol] 0.62 mg/dL Normal 0.00-1.30 [facility] Comment on above: Order Comment: A Performed By: #### L 502.0250, L501.9520, L500.4100, L506.0400, L500.4050, L501.9985 #### [facility] [address] [place], [address] BUN/CRE 26.3 RATIO High 10-20 [facility] Comment on above: Order Comment: A Performed By: #### L 502.0250, L501.9520, L500.4100, L506.0400, L500.4050, L501.9985 #### [facility] [address] [place], [address] Calcium [Mass/Vol] 10.1 mg/dL Normal 7.6-11.0 [facility] Comment on above: Order Comment: A Performed By: #### L 502.0250, L501.9520, L500.4100, L506.0400, L500.4050, L501.9985 #### [facility] [address] [place], [address] Chloride [Moles/Vol] 100 mmol/L Normal 98-108 [facility] Comment on above: Order Comment: A Performed By: #### L 502.0250, L501.9520, L500.4100, L506.0400, L500.4050, L501.9985 #### [facility] [address] [place], [address] CO2 [Moles/Vol] 26.6 mmol/L Normal 21.0-32.0 [facility] Comment on above: Order Comment: A Performed By: #### L 502.0250, L501.9520, L500.4100, L506.0400, L500.4050, L501.9985 #### [facility] [address] [place], [address] Creatinine [Mass/Vol] 0.39 mg/dL Low 0.70-1.20 [facility] Comment on above: Order Comment: A Performed By: #### L 502.0250, L501.9520, L500.4100, L506.0400, L500.4050, L501.9985 #### [facility] [address] [place], [place], [id number] [phone] GAP 12 Normal 5-15 [facility] Comment on above: Order Comment: A Performed By: #### L 502.0250, L501.9520, L500.4100, L506.0400, L500.4050, L501.9985 #### [facility] [address] [place], [place], [id number] (228 GFR/1.73 sq M.predicted among non-blacks MDRD (S/P/Bld) [Vol rate/Area] 115 mL/min/{1.73_m2} Normal >60 W [facility] Comment on above: Order Comment: A Result Comment: mL/m in/1.73m2 CKD-EPI Creatinine Equation (2020) Performed By: #### L 502.0250, L501.9520, L500.4100, L506.0400, L500.4050, L501.9985 #### [facility] [address] [place], [address] Globulin (S) [Mass/Vol] 3.8 g/dL Normal 2.2-4.2 W [facility] Comment on above: Order Comment: A Performed By: #### L 502.0250, L501.9520, L500.4100, L506.0400, L500.4050, L501.9985 #### [facility] [address] [place], [address] Glucose [Mass/Vol] 106 mg/dL High 70-99 [facility] Comment on above: Order Comment: A Performed By: #### L 502.0250, L501.9520, L500.4100, L506.0400, L500.4050, L501.9985 #### [facility] [address] [place], [address] Potassium [Moles/Vol] 3.2 mmol/L Low 3.3-5.1 [facility] Comment on above: Order Comment: A Performed By: #### L 502.0250, L501.9520, L500.4100, L506.0400, L500.4050, L501.9985 #### [facility] [address] [place], [address] Sodium [Moles/Vol] 138 mmol/L Normal 133-145 [facility] Comment on above: Order Comment: A Performed By: #### L 502.0250, L501.9520, L500.4100, L506.0400, L500.4050, L501.9985 #### [facility] [address] [place], [address] T PROT 7.7 g/dL Normal 5.9-8.4 [facility] Comment on above: Order Comment: A Performed By: #### L 502.0250, L501.9520, L500.4100, L506.0400, L500.4050, L501.9985 #### [facility] [address] [place], [address] Urea nitrogen [Mass/Vol] 10 mg/dL Normal 4-19 [facility] Comment on above: Order Comment: A Performed By: #### L 502.0250, L501.9520, L500.4100, L506.0400, L500.4050, L501.9985 #### [facility] [address] [place], [place], [id number] (849) GFR/1.73 sq M.predicted shanice g non-blacks MDRD (S/P/Bld) [Vol rate/Area]on 06-10-2024 Estimated GFR (MDRD) Non-Af Amer 115 >60 [facility] Comment on above: mL/min/1.73m2 CKD-EP I Creatinine Equation (2020) Glomerular filtration rate ( GFR) estimation/1.73 sq m using serum, plasma, or whole bon 06-10-2024 GFR/1.73 sq M.predicted among non-blacks MDRD (S/P/Bld) [Vol rate/Area] 115 mL/min/{1.73_m2} >60 W [facility] Comment on above: mL/min/1.73m2 CKD-EP I Creatinine Equation (2020) Hemoglobin A1con 06-10-2024 HbA1c (Bld) [Mass fraction] 6.2 % Normal <=5.6 [facility] Comment on above: Performed By: #### L 502.0250, L501.9520, L500.4100, L506.0400, L500.4050, L501.9985 #### [facility] [address] [place], [address] Hemoglobin A1c percentageon 06-10-2024 HbA1c (Bld) [Mass fraction] 6.2 % >5.7 [facility] LDL calc ser/plason 06-11-19 25 Cholesterol in LDL [Mass/Vol] 64 mg/dL [facility] Comment on above: Iobadzjjxs=031-001 m g/dL & Higher Ehsu=777 mg/dL or greater LDL Cholesterol, Calculated 64 mg/dL [facility] Comment on above: Taatntsvie=837-364 m g/dL & Higher Ozlm=157 mg/dL or greater Laboratory - Chemistry and C hemistry - challengeon 06-10-2024 AST [Catalytic activity/Vol] 30 U/L <32 [facility] Lipid Profileon 06-10-2024 CHOL:HDL 3.25 Normal [facility] Comment on above: Performed By: #### L 500.4050, L501.9985, L502.0250, L500.4100, L100.0100 #### [facility] [address] [place], [address] Cholesterol [Mass/Vol] 130 mg/dL Normal <=200 [facility] Comment on above: Result Comment: Chol esterol level, Desirable <200 mg/dL Borderline high cholesterol 200-239 mg/dL High cholesterol >=240 mg/dL Recommendations of the NCEP Adult Treatment Panel for the following risk-cutoff thresholds for the [place] population. Performed By: #### L 500.4050, L501.9985, L502.0250, L500.4100, L100.0100 #### [facility] [address] [place], [address] Cholesterol in HDL [Mass/Vol] 40 mg/dL Normal [facility] Comment on above: Result Comment: Kelly onal Cholesterol Education Program (NCEP) guidelines: <40 mg/dL: Low HDL-cholesterol (major risk factor for CHD) >= 60 mg/dL: High HDL-cholesterol (negative risk factor for CHD) HDL-cholesterol is affected by a number of factors, e.g. smoking, exercise, hormones, sex and age. Performed By: #### L 500.4050, L501.9985, L502.0250, L500.4100, L100.0100 #### [facility] [address] [place], [address] Cholesterol in LDL [Mass/Vol] 64 mg/dL Normal [facility] Comment on above: Result Comment: Bord xosrau=583-288 mg/dL Higher Lbgs=464 mg/dL or greater Performed By: #### L 500.4050, L501.9985, L502.0250, L500.4100, L100.0100 #### [facility] [address] [place], [address] Cholesterol in VLDL [Mass/Vol] 26 mg/dL Normal 5-40 [facility] Comment on above: Performed By: #### L 500.4050, L501.9985, L502.0250, L500.4100, L100.0100 #### [facility] [address] [place], [address] Triglyceride [Mass/Vol] 131 mg/dL Normal W [facility] Comment on above: Result Comment: The drugs N-Acetylcysteine and Metamizole may falsely depress this assay. Normal range: <150 mg/dL Borderline High: 150-199 mg/dL High: 200-499 mg/dL Very High: >500 mg/dL Performed By: #### L 500.4050, L501.9985, L502.0250, L500.4100, L100.0100 #### [facility] [address] [place], [address] Microalb:Creat Ratio,Random URon 06-10-2024 MALB:CREAT Normal [facility] Comment on above: Result Comment: UTO BRINGING BACK Performed By: #### L 502.0250, L501.9520, L500.4100, L506.0400, L500.4050, L501.9985 #### [facility] [address] [place], [address] MICROALBUMIN,UR Normal NO RANGE EST. [facility] Comment on above: Result Comment: UTO BRINGING BACK Performed By: #### L 502.0250, L501.9520, L500.4100, L506.0400, L500.4050, L501.9985 #### [facility] [address] [place], [address] UR CREAT Normal 28.00-217.00 [facility] Comment on above: Result Comment: UTO BRINGING BACK Performed By: #### L 502.0250, L501.9520, L500.4100, L506.0400, L500.4050, L501.9985 #### [facility] [address] [place], [address] Potassium (Unsp spec) [Mass/ Vol]on 06-10-2024 Potassium [Moles/Vol] 3.2 mmol/L Low 3.3-5.1 [facility] Potassium measurement (mass/ volume)on 06-10-2024 Potassium (Unsp spec) [Mass/Vol] 3.2 mmol/L Low 3.3-5.1 [facility] Screening total cholesterol/ high density lipoprotein (HDL) cholesterol ratioon 06-10-2024 Cholesterol.total/Cholest rubi in HDL [Mass ratio] 3.25 {ratio} [facility] Serum creatinine measurement (mass/volume)on 06-10-2024 Creatinine [Mass/Vol] 0.39 mg/dL Low 0.70-1.20 [facility] Serum globulin measurementon 06-10-2024 Globulin (S) [Mass/Vol] 3.8 g/dL 2.2-4.2 [facility] Serum glucose measurement (m ass/volume)on 06-10-2024 Glucose [Mass/Vol] 106 mg/dL High 70-99 [facility] Serum or plasma alanine apodaca otransferase (ALT) measurementon 06-10-2024 ALT [Catalytic activity/Vol] 30 U/L <35 [facility] Serum or plasma albumin aj urement (mass/volume)on 06-10-2024 Albumin [Mass/Vol] 3.9 g/dL 3.5-5.0 [facility] Serum or plasma albumin/glob ulin mass ratioon 06-10-2024 Albumin/Globulin [Mass ratio] 1.0 {ratio} 0.9-2.4 [facility] Serum or plasma alkaline jami sphatase measurementon 06-10-2024 ALP [Catalytic activity/Vol] 82 U/L 35-104 [facility] Serum or plasma calcium aj urement (mass/volume)on 06-10-2024 Calcium [Mass/Vol] 10.1 mg/dL 7.6-11.0 [facility] Serum or plasma cholesterol in HDL measurement (mass/volume)on 06-10-2024 Cholesterol in HDL [Mass/Vol] 40 mg/dL >40 [facility] Comment on above: National Cholesterol Education Program (NCEP) guidelines:<40 mg/dL: Low HDL-cholesterol (major risk factor for CHD)>= 60 mg/dL: High HDL-cholesterol (negative risk factor for CHD)HDL-cholesterol is affected by a number of factors, e.g. smoking, exercise, hormones, sex and age. Serum or plasma cholesterol measurement (mass/volume)on 06-10-2024 Cholesterol [Mass/Vol] 130 mg/dL <201 [facility] Comment on above: Cholesterol level, D esirable <200 mg/dLBorderline high cholesterol 200-239 mg/dLHigh cholesterol >=240 mg/dLRecommendations of the NCEP Adult Treatment Panel for the following risk-cutoff thresholds for the [place] population. Serum or plasma urea nitroge n measurement (mass/volume)on 06-10-2024 Urea nitrogen [Mass/Vol] 10 mg/dL - [facility] Sodium levelon 06-10-2024 Sodium [Moles/Vol] 138 mmol/L 133-145 [facility] T4 Free Directon 06-10-2024 T4 FREE DIRECT 1.10 ng/dL Normal 0.76-1.46 [facility] Comment on above: Order Comment: A Performed By: #### L 500.4050, L501.9985, L502.0250, L500.4100, L100.0100 #### [facility] [place] [address] [address], [address] T4 freeon 06-10-2024 Free T4 [Mass/Vol] 1.10 ng/dL 0.76-1.46 [facility] TSH DL <= 0.005 mIU/L Qnon 0 06-10-2024 Thyroid Stimulating Hormone (TSH) 1.360 uIU/mL 0.300-4.200 [facility] TSH Qn 1.360 uIU/mL 0.300-4.200 [facility] Thyroid Stim Hormone (TSH)on 06-10-2024 TSH 1.360 uIU/mL Normal 0.300-4.200 [facility] Comment on above: Performed By: #### L 500.4050, L501.9985, L502.0250, L500.4100, L100.0100 #### [facility] [address] [place], [address] Total proteinon 06-10-2024 Protein [Mass/Vol] 7.7 g/dL 5.9-8.4 [facility] Triglycerides measurementon 06-10-2024 Triglyceride [Mass/Vol] 131 mg/dL <199 [address] [facility] Comment on above: The drugs N-Acetylcy steine and Metamizole may falsely depress this assay. 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 Please advise. [facility] 04-23-2024 36 Called and released msg to pt. [place] [address] Basaglar to 16 units Message/call DD 2 weeks [facility] 04-22-2024 36 Dexcom downloaded an d saved in [employer] [facility] 36 Please download dexc om and sent it to provider [place] 3222204-21-2024 36 Name of caller: Rossana contreras Contact phone number: [phone] Relationship to Patient: patient Provider: BARBARA Cohen CNP Practice: [facility] Chief Complaint/Reason for Call: Taylor is requesting a call back to discuss her most recent Dexcom report. Please contact Taylor and advise. Best time of day caller can be reached: Any Patient advised that office/PCP has 24-48 business hours to return their call: Yes Normal [facility] 37on 03-18-2024 37 *Please arrive 15 minutes [...] shoaib, please send me a message via [employer] or call [phone] so we can address your needs *Please [...] can adjust your plan of care. Normal [facility] Office Visiton 03-18-2024 Follow-up visit [id number] Taylor Wesley 1965 F Date Provider Department Center 03/18/2024 [id number] ARMIJO [facility] None Family History Problem Relation Age of Onset Breast cancer Mother Diabetes Maternal Grandmother Family Status - Relation Status Age at Mother Maternal Grandmother Level of Service:56219 [place] OFFICE/OUTPATIENT ESTABLISHED MOD MDM 30 MIN Reason for Visit and Comments: Diabetes Mellitus [183] Normal [facility] Progress Noteon 03-18-2024 Progress Note [facility] [address] [place] [address] Dept: [phone] Dept Loc: [phone] Visit type: Established Patient Reason for Visit: [...] higher protein Employment/Lifestyle Patterns/Schedule Alterations: Works at [employer]. 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 Dog Races Manager: ALISSON HTN: Endorses HLD: Denies Renal: Denies [...] as dir (more content not included)... Normal [facility] Basic Metabolic Profile (BMP )on 03-09-2024 BUN/CRE 45.1 RATIO High 10-20 [facility] Comment on above: Performed By: #### L 500.2500 #### [facility] [address] [place], [address] CA,Total 10.0 mg/dL Normal 8.5-10.1 [facility] Comment on above: Performed By: #### L 500.2500 #### [facility] [address] [place], [address] Chloride [Moles/Vol] 104 mmol/L Normal 98-107 [facility] Comment on above: Performed By: #### L 500.2500 #### [facility] [address] [place], [address] CO2 [Moles/Vol] 29.0 mmol/L Normal 21.0-32.0 [facility] Comment on above: Performed By: #### L 500.2500 #### [facility] [address] [place], [address] Creatinine [Mass/Vol] 0.42 mg/dL Low 0.55-1.02 [facility] Comment on above: Result Comment: The validity of the calculated GFR GFRAA in patients over 70 years has not been determined. Clinical correlation is essential. Performed By: #### L 500.2500 #### [facility] [address] [place], [address] EST GFR - AA 199 mL/min Normal >60 [facility] Comment on above: Result Comment: Afri can Estonian GFR Calc Performed By: #### L 500.2500 #### [facility] [address] [place], [address] GAP 5 Normal 5-15 [facility] Comment on above: Performed By: #### L 500.2500 #### [facility] [address] [place], [address] GFR/1.73 sq M.predicted among non-blacks MDRD (S/P/Bld) [Vol rate/Area] 164 mL/min/{1.73_m2} Normal >60 W [facility] Comment on above: Result Comment: Non- GFR Calc Performed By: #### L 500.2500 #### [facility] [address] [place], [address] Glucose [Mass/Vol] 124 mg/dL High 74-106 [facility] Comment on above: Result Comment: Fast ing Glucose result from 100 to 125 mg/dL suggests IMPAIRED HOMEOSTASIS per A.D.A. criteria. Performed By: #### L 500.2500 #### [facility] [address] [place], [address] Potassium [Moles/Vol] 3.6 mmol/L Normal 3.5-5.1 [facility] Comment on above: Performed By: #### L 500.2500 #### [facility] [address] [place], [address] Sodium [Moles/Vol] 138 mmol/L Normal 136-145 [facility] Comment on above: Performed By: #### L 500.2500 #### [facility] [address] [place], [address] Urea nitrogen [Mass/Vol] 19 mg/dL High 7-18 [facility] Comment on above: Performed By: #### L 500.2500 #### [facility] [address] [place], [address] Blood urea nitrogen (BUN)/cr eatinine ratioOrdered By: Yenni Williamson on 03-09-2024 Urea nitrogen/Creatinine [Mass ratio] 45.1 mg/mg High 10-20 [facility] Carbon dioxide measurementOr dered By: Yenni Williamson on 03-09-2024 CO2 [Moles/Vol] 29.0 mmol/L 21.0-32.0 [facility] Chloride measurementOrdered By: [facility] Williamson on 03-09-2024 Chloride [Moles/Vol] 104 mmol/L 98-107 [facility] Estimated glomerular filtrat ion rate (GFR) AmericanOrdered By: Yenni Williamson on 03-09-2024 Estimated GFR (MDRD) Amer 199 mL/min >60 [facility] Comment on above: GFR Calc Glomerular filtration rate ( GFR) estimationOrdered By: Yenni Williamson on 03-09-2024 Estimated GFR (MDRD) Non-Af Amer 164 mL/min >60 [facility] Comment on above: Non- GFR Calc Glucose measurementOrdered B y: Yenni Williamson on 03-09-2024 Glucose [Mass/Vol] 124 mg/dL High 74-106 [facility] Comment on above: Fasting Glucose resu lt from 100 to 125 mg/dL suggests IMPAIRED HOMEOSTASIS per A.D.A. criteria. Potassium measurementOrdered By: Yenni Williamson on 03-09-2024 Potassium [Moles/Vol] 3.6 mmol/L 3.5-5.1 [facility] Serum anion gap measurementO rdered By: Yenni Williamson on 03-09-2024 Anion gap [Moles/Vol] 5 mmol/L 5-15 [facility] Serum or plasma calcium aj urement (mass/volume)Ordered By: [facility] on 03-09-2024 Calcium [Mass/Vol] 10.0 mg/dL 8.5-10.1 [facility] Serum or plasma creatinine m easurement (mass/volume)Ordered By: Yenni [facility] on 03-09-2024 Creatinine [Mass/Vol] 0.42 mg/dL Low 0.55-1.02 [facility] Comment on above: The validity of the calculated GFR & GFRAA in patients over 70 years has not been determined. Clinical correlation is essential. Serum or plasma urea nitroge n measurement (mass/volume)Ordered By: Yenni Williamson on 03-09-2024 Urea nitrogen [Mass/Vol] 19 mg/dL High 7-18 [facility] Sodium levelOrdered By: Valentino lu Cidlibertad on 03-09-2024 Sodium [Moles/Vol] 138 mmol/L 136-145 [facility] 36on 02-27-2024 36 Message released to patient as written. Patient's further questions if applicable: N/A Were all questions from office addressed or relayed to the patient from encounter: Yes Normal [facility] 36 LVM for patient to call the office. if patient return call please relay message per provider. Normal [facility] 36 No significant hyperglycemia on DD Recommend again she follow orders given then message for DD in 1-2 weeks If trends >250 notify sooner but none seen on 1 week adjusted download [facility] 36 Name of caller: Rossana contreras Contact phone number: [phone] Relationship to Patient: patient Provider: Aleksander FOFANA [...] business hours to return their call: Yes [facility] 36on 02-21-2024 36 Patient informed as noted No further questions. [facility] 36 Reviewed Time in range at goal Stop Novolog Decrease Basagalr to 20 units Remind about 1/8 appt; will pull DD again at that time Can notify sooner if needs review [facility] 36 Dexcom DL in media [facility] 36on 02-20-2024 36 Name of caller: Rossana contreras Contact phone number: [phone] Relationship to Patient: Patient Provider: JANNY Armijo Practice: endo Chief Complaint/Reason for Call: Patient is requesting her blood glucose log be pulled. She also stated that she re-calibrated her dexcom. Please advise. Best time of day caller can be reached: Any Patient advised that office/PCP has 24-48 business hours to return their call: Yes [facility] CBC W/Diff, Automatedon 11-2 Absolute Lymph 3.02 X10 3/uL Normal 0.83-4.51 [facility] Comment on above: Performed By: #### L 500.4050, L501.9985, L502.0250, L500.4100, L100.0100 #### [facility] [address] [place], [address] Absolute Neut 3.1 X10 3/uL Normal 2.0-7.7 [facility] Comment on above: Performed By: #### L 500.4050, L501.9985, L502.0250, L500.4100, L100.0100 #### [facility] [address] [place], [address] Basophils/100 WBC (Bld) 0.7 % Normal 0-1 W [facility] Comment on above: Performed By: #### L 500.4050, L501.9985, L502.0250, L500.4100, L100.0100 #### [facility] [address] [place], [address] Eosinophils/100 WBC (Bld) 3.8 % Normal 0-5 [facility] Comment on above: Performed By: #### L 500.4050, L501.9985, L502.0250, L500.4100, L100.0100 #### [facility] [address] [place], [address] Erythrocyte distribution width (RBC) [Ratio] 12.7 % Normal 11.6-14.6 [facility] Comment on above: Performed By: #### L 500.4050, L501.9985, L502.0250, L500.4100, L100.0100 #### [facility] [address] [place], [address] Hematocrit (Bld) [Volume fraction] 39.9 % Normal 37-47 [facility] Comment on above: Performed By: #### L 500.4050, L501.9985, L502.0250, L500.4100, L100.0100 #### [facility] [address] [place], [address] Hemoglobin (Bld) [Mass/Vol] 12.9 g/dL Normal 12.0-15.0 [facility] Comment on above: Performed By: #### L 500.4050, L501.9985, L502.0250, L500.4100, L100.0100 #### [facility] [address] [place], [address] IG% 0.300 Normal 0.0-0.9 [facility] Comment on above: Result Comment: IG% - Immature Granulocytes (promyelocytes, myelocytes and metamyelocytes) > 1% indicates that a LEFT SHIFT is Present. Performed By: #### L 500.4050, L501.9985, L502.0250, L500.4100, L100.0100 #### [facility] [address] [place], [address] Lymphocytes/100 WBC (Bld) 42.7 % High 19-41 [facility] Comment on above: Performed By: #### L 500.4050, L501.9985, L502.0250, L500.4100, L100.0100 #### [facility] [address] [place], [address] MCH (RBC) [Entitic mass] 28.0 pg Normal 27.0-32.0 [facility] Comment on above: Performed By: #### L 500.4050, L501.9985, L502.0250, L500.4100, L100.0100 #### [facility] [address] [place], [address] MCHC (RBC) [Mass/Vol] 32.3 g/dL Normal 32-36 [facility] Comment on above: Performed By: #### L 500.4050, L501.9985, L502.0250, L500.4100, L100.0100 #### [facility] [address] [place], [address] MCV (RBC) [Entitic vol] 86.7 fL Normal 81-99 W [facility] Comment on above: Performed By: #### L 500.4050, L501.9985, L502.0250, L500.4100, L100.0100 #### [facility] [address] [place], [address] Monocytes/100 WBC (Bld) 8.3 % Normal 0-10 W [facility] Comment on above: Performed By: #### L 500.4050, L501.9985, L502.0250, L500.4100, L100.0100 #### [facility] [address] [place], [address] Neutrophils/100 WBC (Bld) 44.2 % Low 47-70 [facility] Comment on above: Performed By: #### L 500.4050, L501.9985, L502.0250, L500.4100, L100.0100 #### [facility] [address] [place], [address] Nucleated RBC (Bld) [#/Vol] 0 10*3/uL Normal 0-5 [facility] Comment on above: Performed By: #### L 500.4050, L501.9985, L502.0250, L500.4100, L100.0100 #### [facility] [address] [place], [address] Platelet mean volume (Bld) [Entitic vol] 10.3 fL Normal 6.2-12.0 [facility] Comment on above: Performed By: #### L 500.4050, L501.9985, L502.0250, L500.4100, L100.0100 #### [facility] [address] [place], [address] Platelets (Bld) [#/Vol] 388 10*3/uL Normal 150-450 [facility] Comment on above: Performed By: #### L 500.4050, L501.9985, L502.0250, L500.4100, L100.0100 #### [facility] [address] [place], [address] RBC (Bld) [#/Vol] 4.60 10*6/uL Normal 4.2-5.4 [facility] Comment on above: Performed By: #### L 500.4050, L501.9985, L502.0250, L500.4100, L100.0100 #### [facility] [address] [place], [address] RDW SD 39.8 fl Normal 35.1-43.9 [facility] Comment on above: Performed By: #### L 500.4050, L501.9985, L502.0250, L500.4100, L100.0100 #### [facility] [address] [place], [address] WBC (Bld) [#/Vol] 7.1 10*3/uL Normal 4.4-11.0 [facility] Comment on above: Performed By: #### L 500.4050, L501.9985, L502.0250, L500.4100, L100.0100 #### [facility] [address] [place], [address] Comprehensive Metabolic [facility] 02-03-2024 Albumin [Mass/Vol] 3.3 g/dL Normal 3.2-5.0 [facility] Comment on above: Order Comment: LIPID Performed By: #### L 500.4050, L501.9985, L502.0250, L500.4100, L100.0100 #### [facility] [address] [place], [address] Albumin/Globulin [Mass ratio] 0.7 {ratio} Low 0.9-2.4 [facility] Comment on above: Order Comment: LIPID Performed By: #### L 500.4050, L501.9985, L502.0250, L500.4100, L100.0100 #### [facility] [address] [place], [address] ALK P 87 U/L Normal 45-117 [facility] Comment on above: Order Comment: LIPID Performed By: #### L 500.4050, L501.9985, L502.0250, L500.4100, L100.0100 #### [facility] [address] [place], [address] ALT [Catalytic activity/Vol] 53 U/L Normal 13-56 [facility] Comment on above: Order Comment: LIPID Performed By: #### L 500.4050, L501.9985, L502.0250, L500.4100, L100.0100 #### [facility] [address] [place], [address] AST [Catalytic activity/Vol] 33 U/L Normal 15-37 [facility] Comment on above: Order Comment: LIPID Performed By: #### L 500.4050, L501.9985, L502.0250, L500.4100, L100.0100 #### [facility] [address] [place], [address] Bilirubin [Mass/Vol] 0.60 mg/dL Normal 0.20-1.00 [facility] Comment on above: Order Comment: LIPID Result Comment: For patients on eltrombopag therapy, use of Dimension [place] TBIL is not recommended. Performed By: #### L 500.4050, L501.9985, L502.0250, L500.4100, L100.0100 #### [facility] [address] [place], [address] BUN/CRE 34.7 RATIO High 10-20 [facility] Comment on above: Order Comment: LIPID Performed By: #### L 500.4050, L501.9985, L502.0250, L500.4100, L100.0100 #### [facility] [address] [place], [address] CA,Total 10.3 mg/dL High 8.5-10.1 [facility] Comment on above: Order Comment: LIPID Performed By: #### L 500.4050, L501.9985, L502.0250, L500.4100, L100.0100 #### [facility] [address] [place], [address] Chloride [Moles/Vol] 103 mmol/L Normal 98-107 [facility] Comment on above: Order Comment: LIPID Performed By: #### L 500.4050, L501.9985, L502.0250, L500.4100, L100.0100 #### [facility] [address] [place], [address] CO2 [Moles/Vol] 27.0 mmol/L Normal 21.0-32.0 [facility] Comment on above: Order Comment: LIPID Performed By: #### L 500.4050, L501.9985, L502.0250, L500.4100, L100.0100 #### [facility] [address] [place], [address] Creatinine [Mass/Vol] 0.40 mg/dL Low 0.55-1.02 [facility] Comment on above: Order Comment: LIPID Result Comment: The validity of the calculated GFR GFRAA in patients over 70 years has not been determined. Clinical correlation is essential. Performed By: #### L 500.4050, L501.9985, L502.0250, L500.4100, L100.0100 #### [facility] [address] [place], [address] EST GFR - AA 209 mL/min Normal >60 [facility] Comment on above: Order Comment: LIPID Result Comment: Afri can Estonian GFR Calc Performed By: #### L 500.4050, L501.9985, L502.0250, L500.4100, L100.0100 #### [facility] [address] [place], [address] GAP 8 Normal 5-15 [facility] Comment on above: Order Comment: LIPID Performed By: #### L 500.4050, L501.9985, L502.0250, L500.4100, L100.0100 #### [facility] [address] [place], [address] GFR/1.73 sq M.predicted among non-blacks MDRD (S/P/Bld) [Vol rate/Area] 173 mL/min/{1.73_m2} Normal >60 W [facility] Comment on above: Order Comment: LIPID Result Comment: Non- GFR Calc Performed By: #### L 500.4050, L501.9985, L502.0250, L500.4100, L100.0100 #### [facility] [address] [place], [address] Globulin (S) [Mass/Vol] 4.9 g/dL High 2.2-4.2 [facility] Comment on above: Order Comment: LIPID Performed By: #### L 500.4050, L501.9985, L502.0250, L500.4100, L100.0100 #### [facility] [address] [place], [address] Glucose [Mass/Vol] 107 mg/dL High 74-106 [facility] Comment on above: Order Comment: LIPID Result Comment: Fast ing Glucose result from 100 to 125 mg/dL suggests IMPAIRED HOMEOSTASIS per A.D.A. criteria. Performed By: #### L 500.4050, L501.9985, L502.0250, L500.4100, L100.0100 #### [facility] [address] [place], [address] Potassium [Moles/Vol] 3.2 mmol/L Low 3.5-5.1 [facility] Comment on above: Order Comment: LIPID Performed By: #### L 500.4050, L501.9985, L502.0250, L500.4100, L100.0100 #### [facility] [address] [place], [address] Sodium [Moles/Vol] 137 mmol/L Normal 136-145 [facility] Comment on above: Order Comment: LIPID Performed By: #### L 500.4050, L501.9985, L502.0250, L500.4100, L100.0100 #### [facility] [address] [place], [address] T PROT 8.2 g/dL Normal 6.4-8.2 [facility] Comment on above: Order Comment: LIPID Performed By: #### L 500.4050, L501.9985, L502.0250, L500.4100, L100.0100 #### [facility] [address] [place], [address] Urea nitrogen [Mass/Vol] 14 mg/dL Normal 7-18 [facility] Comment on above: Order Comment: LIPID Performed By: #### L 500.4050, L501.9985, L502.0250, L500.4100, L100.0100 #### [facility] [address] [place], [address] Hemoglobin A1con 02-03-2024 HbA1c (Bld) [Mass fraction] 8.2 % High 3.8-5.6 [facility] Comment on above: Result Comment: Norm al < 5.7 % Prediabetic 5.7 - 6.4 % Diabetic >or= 6.5 % Please note range changes. Performed By: #### L 500.4050, L501.9985, L502.0250, L500.4100, L100.0100 #### [facility] [address] [place], [address] Lipid Profileon 02-03-2024 Cholesterol [Mass/Vol] 124 mg/dL Normal 200 [facility] Comment on above: Order Comment: LIPID Result Comment: <200 mg/dL Desirable 200-240 mg/dL Borderline >240 mg/dL High Risk Performed By: #### L 500.4050, L501.9985, L502.0250, L500.4100, L100.0100 #### [facility] [address] [place], [address] Cholesterol in HDL [Mass/Vol] 37 mg/dL Low [facility] Comment on above: Order Comment: LIPID Result Comment: The drugs N-Acetylcysteine and Metamizole may falsely depress this assay. Reference Range HDL <40 mg/dL Low HDL Cholesterol HDL >or= 60 mg/dL High HDL Cholesterol Performed By: #### L 500.4050, L501.9985, L502.0250, L500.4100, L100.0100 #### [facility] [address] [place], [address] Cholesterol in LDL [Mass/Vol] 62 mg/dL Normal 0-130 [facility] Comment on above: Order Comment: LIPID Performed By: #### L 500.4050, L501.9985, L502.0250, L500.4100, L100.0100 #### [facility] [address] [place], [address] Cholesterol in VLDL [Mass/Vol] 25 mg/dL Normal 5-40 [facility] Comment on above: Order Comment: LIPID Performed By: #### L 500.4050, L501.9985, L502.0250, L500.4100, L100.0100 #### [facility] [address] [place], [address] Triglyceride [Mass/Vol] 123 mg/dL Normal W [facility] Comment on above: Order Comment: LIPID Result Comment: The drugs N-Acetylcysteine and Metamizole may falsely depress this assay. Serum Triglycerides Reference Interval Normal <150 mg/dL Borderline high 150 - 199 mg/dL High 200 - 499 mg/dL Very High > or = 500 mg/dL Performed By: #### L 500.4050, L501.9985, L502.0250, L500.4100, L100.0100 #### [facility] [address] [place], [place], [address] Microalb:Creat Ratio,Random URon 02-03-2024 Creatinine [Mass/Vol] 43.20 mg/dL Normal NO RAN GE EST. [facility] Comment on above: Performed By: #### L 500.4050, L501.9985, L502.0250, L500.4100, L100.0100 #### [facility] [address] [place], [place], [id number] MALB:CRE 11.6 mg/g CRE Normal <30 mg/g CRE [facility] Comment on above: Performed By: #### L 500.4050, L501.9985, L502.0250, L500.4100, L100.0100 #### [facility] [address] [place], [address] MICROALBUMIN,UR 5.0 mg/L Normal NO RANGE EST. [facility] Comment on above: Performed By: #### L 500.4050, L501.9985, L502.0250, L500.4100, L100.0100 #### [facility] [address] [place], [address] 36on 01-31-2024 36 Rec'd PA request for Ozempic, called pharmacy, they stated it went through no charge but the Novolog cannot be filled until February 15, 2024 [facility] 36on 01-30-2024 36 done Normal [place] [address] Pharmacy called and stated that Ozempic prescription should be corrected to a 4mg pen. Please advise. [place] [address] DD reviewed Trends improved greatly Increase Ozempic to 1mg weekly; once ozempic is increased can cut back Novolog to 6 units with meals; continue Basaglar Message/call again in 2 weeks to consider further decreasing insulin Normal [place] [address] Name of caller: Rossana contreras Contact phone number: [phone] Relationship to Patient: patient Provider: JANNY Armijo Practice: Endo Chief Complaint/Reason for Call: Patient calling to advise that it is time to pull her glucose log report. Please advise, Best time of day caller can be reached: Any Patient advised that office/PCP has 24-48 business hours to return their call: Yes [facility] 29on 01-14-2024 29 Addended by: SAUL ARMIJO on: 01/14/2024 03:45 PM Modules accepted: Orders [facility] 37on 01-14-2024 37 *Please arrive 15 minutes [...] shoaib, please send me a message via [employer] or call [phone] so we can address your needs *Please [...] pass out or have a seizure Normal [facility] HbA1c (Bld) [Mass fraction]o n 01-14-2024 Interpretation and review of laboratory results Abnormal [facility] Laboratory - Hematology and Cell countson 01-14-2024 HbA1c (Bld) [Mass fraction] 9.5 % Abnormal - 5.7 % [facility] Office Visiton 01-14-2024 Follow-up visit [id number] Taylor Wesley 1965 F Date Provider Department Center 01/14/2024 [id number] ARMIJO [facility] ENDO CH None Family History Problem Relation Age of Onset Breast cancer Mother Diabetes Maternal Grandmother Family Status - Relation Status Age at Mother Maternal Grandmother Level of Service:42549 [place] OFFICE/OUTPATIENT ESTABLISHED HIGH MDM 40 MIN Reason for Visit and Comments: Diabetes Mellitus [183] Normal [facility] Progress Noteon 01-14-2024 Progress Note [facility] [place] [address] [place] [address] Dept: [phone] Dept Loc: [phone] Visit type: Established Patient Reason for Visit: [...] misc; 4 times daily, Normal - Lancets (Compu[employer] Systems HoldingTouch Delica Plus [id number]) misc; 1 each as needed for CGM [...] of juice Employment/Lifestyle Patterns/Schedule Alterations: Works at [employer] History of Type 2 Diabetes Age at [...] Last Dilated Eye Exam: Overdue; Dr Ornelas ([facility]) Neuropathy: Denies - Last DMFE: 01/14/2024. Dog Races Manager: NA HTN: Endorses HLD: Denies Renal: Denies Cardiac: Denies CVA: Endorses-1x as child JAZMINE: Denies Gastroparesis: Denies H/ (more content not included)... Normal [facility] Progress Note [facility] [address] [place] [address] Dept: [phone] Dept Visit Date: 01/14/2024 Individual DSME Appointment [...] Electronically signed by Nigel Maradiaga RN Educator [facility] 29on 01-03-2024 29 Addended by: SAUL ARMIJO on: 01/03/2024 10:53 AM Modules accepted: Orders [facility] 36on 01-03-2024 36 Spoke to patient and caregiver. Gave new orders as written. Caregiver wrote down new orders for patient. [facility] 36 Increase Ozempic as planned Increase Basaglar to 24 daily Start Humalog 8 with meals Message for DD 2 weeks [facility] 36 Spoke to patient. Is taking the Basaglar 20 units in am and is taking the 0.25 Ozempic. Will start the 0.5 dose next week. Advised if any changes to meds will contact patient. Patient agreed will be at appt 01/13. [facility] 36on 01-02-2024 36 Very poor control Insulin dosages/meds need confirmed as I have never seen the pt Per November IP note was to optimize ozempic 0.25-->0.5 and start Basaglar Please confirm timing/dosages Thank you [facility] 36 Name of caller: Rossana contreras Contact phone number: [phone] Relationship to Patient: patient Provider: Dr. Miner Practice: Endo Chief Complaint/Reason for Call: Pt states she is calling to let the office to download her recent readings. Please advise. Best time of day caller can be reached: any Patient advised that office/PCP has 24-48 business hours to return their call: N/A [facility] 36on 12-17-2023 36 Pt called back with can get vaccines. Pt verbalized understanding. [facility] 36 Patient would like t o know when she could get her flu shot and covid vaccine in relation to her surgery. Patient also requested for her [facility] paperwork to be completed by the 14th. With questions about either, please contact patient when able, thank you [facility] Office Visiton 12-16-2023 Follow-up visit [id number] Taylor Wesley 1965 F Date Provider Department Center 12/16/2023 [id number] BARR [facility] [employer] [facility] None Family History Problem Relation Age of Onset Breast cancer Mother Diabetes Maternal Grandmother Family Status - Relation Status Age at Mother Maternal Grandmother Level of Service:01222 IA POSTOP FOLLOW UP VISIT RELATED TO ORIGINAL PX Reason for Visit and Comments: Post-op Visit [559] - Pain is much better, still some bleeding. [facility] Progress Noteon 12-16-2023 Progress Note GYNECOLOGIC ONCOLOGY [...] 100 each 11 Lancets (OneTouch Delica Plus [id number]) misc 1 each as needed for CGM [...] 6 weeks postoperatively - Follow-up with primary [facility] [employer] [facility] for annual well woman exams. I explained diagnosis and treatment plan; patient expressed understanding and was in agreement with the plan. Marisol Emery, BARBARA - DIESEL TECHNICIAN MECHANIC [facility] 12-05-2023 36 Patient states she i s having some bleeding not filling a pad this has been going on for a few days just wanted you to know. I called patient back and let her know spotting is normal if it is a pad an hour to please call the office at [phone] to let us know. [facility] 12-03-2023 36 S: Patient spoke wit [facility] nurse regarding post op questions, bleeding found. [...] or question Protocols used: Post-Op Symptoms and [facility] Lvm informing patien t of the move from Dr. Astorga's schedule to Marisol's. Same date and time. [place] [id number] 36 ----- Message from Robert Bruce MD sent at 12/02/2023 6:23 AM EDT ----- Please call and let her know pathology was completely benign. She also wanted to know the weight so L it was 2769 g. Please see for postop. Normal [facility] [address] Vanessa at [phone] via [employer]. Confirmation scanned within media Normal [facility] 36 ----- Message from Robert Bruce MD sent at 12/02/2023 6:23 AM EDT ----- Plz fax to Dr Ana Rosa Vanessa in [place] ----- Message ----- From: TEEspy User, Altagracia Sent: 11/27/2023 12:50 PM EDT To: Robert Bruce MD [facility] [id number] 11-29-2023 [id number] Discussed Home Care Services available to patient [...] any other needs arise prior to DC. [facility] CARECOORDon 11-29-2023 CARECOORD Pt to be discharged to home with spouse today. PT recommending home health but pt declined per Jolene SABA. Pt denies any needs from tcc. [facility] Laboratory - Chemistry and C hemistry - challengeon 11-29-2023 Glucose [Mass/Vol] 177 mg/dL High 70 - 100 mg/dL [facility] Glucose [Mass/Vol] 199 mg/dL High 70 - 100 mg/dL [facility] No Panel Informationon 11-28 Interpretation and review of laboratory results Abnormal [facility] Performed by: [facility], [address] [place] [address] CLIA ID: [id number] [facility] Interpretation and review of laboratory results Abnormal [facility] Performed by: [facility], [address] [facility], [facility] [address] CLIA ID: [id number] [facility] Nursing Noteon 11-29-2023 Nursing Note Pt discharge papers reviewed and signed, pt verbalized understanding Normal [facility] Progress Noteon 11-29-2023 Progress Note PHYSICAL THERAPY [facility] Name/MRN: Taylor Wesley ([id number]) Date: 11/29/2023 Pt is planning on going home today, prefers to save her energy for transfer to home. Di Anaya, PT [facility] Progress Note Department of Energy Assistant al Medicine Division of Endocrinology, Diabetes, & Metabolism Endocrinology Note Patient Name: Taylor Wesley : 1965 AGE: 58 y.o. Room/Bed: [facility]/[address] Admission Date: 11/26/2023 Visit Date: 11/29/2023 Reason for Endocrine Consult: Uncontrolled T2DM Provider/Team Requesting Consult: Dr. Linda PCP: Ion Williamson DO Outpt Bevel Face Stoner And Polisher: No ASSESSMENT: Type 2 diabetes with hyperglycemia [...] pharmacy Provide on discharge Outpt Follow Up-- [facility] endocrinology, TE sent SUBJECTIVE/HPI: CHIEF COMPLAINT: Status [...] Units, SubCUTAneous, Every morning Continuous Glucose Sensor ([employer] G7 Sensor) misc Use every 10 days [...] found for: CHOLHDLRATIO No results found for: SUOF33VOD No results found for: TSH, J8LXVRT, T5EZZAH, THYROIDAB Radiology reportsas pe (more content not included)... Normal [facility] Progress Note -- Attestation signed by Kalyn Adam MD at 11/30/2023 8:36 PM Patient seen and examined 11/29/2023, agree with resident documentation. Glucose control somewhat improved, appreciate Endocrine assistance. Appropriate for discharge home, reviewed discharge instructions and precautions. Kalyn Adam MD [facility] [employer] [facility] Progress Note Date: 11/29/2023 Time: 6:32 AM Please page the [facility] PATTERN[employer] MET[employer] ONC Call RES group via Secure Chat [...] injection 7 Units, 7 Units, SubCUTAneous, TID Cahna DEVINE DO, 7 Units at 11/28/23 1747 [...] glucose meter Result Date: 11/27/2023 Performed by: [facility], [address] [place] [address] CLIA ID: [id number] POCT glucose meter Result Date: 11/27/2023 Performed by: [facility], [address] [place] [address] CLIA ID: [id number] POCT glucose meter Result Date: 11/27/2023 Performed by: [facility], [address] [place] [address], [facility] [address] CLIA ID: [id number] POCT glucose meter Result Date: 11/27/2023 Performed by: [facility], [address] [place] [address] CLIA ID: [id number] POCT glucose meter Result Date: 11/26/2023 Performed (more content not included)... Normal [facility] 36on 11-28-2023 36 Pt scheduled. Normal [facility] 36 Patient seen at [facility] for diabetes Please schedule follow-up appointment with Saul Horvath in 4 weeks Normal [facility] Laboratory - Chemistry and C hemistry - challengeon 11-28-2023 Glucose [Mass/Vol] 223 mg/dL High 70 - 100 mg/dL [facility] Glucose [Mass/Vol] 156 mg/dL High 70 - 100 mg/dL [facility] Glucose [Mass/Vol] 206 mg/dL High 70 - 100 mg/dL [facility] [employer] Glucose [Mass/Vol] 263 mg/dL High 70 - 100 mg/dL [facility] Glucose [Mass/Vol] 359 mg/dL High 70 - 100 mg/dL [facility] [employer] No Panel Informationon 11-27 Interpretation and review of laboratory results Abnormal [facility] [employer] Performed by: [facility], [address] [place] [address] CLIA ID: [id number] [facility] [employer] [facility] Interpretation and review of laboratory results Abnormal [facility] [employer] Performed by: [facility], [address] [place] [address] CLIA ID: [id number] [facility] [employer] [facility] Interpretation and review of laboratory results Abnormal [facility] [employer] Performed by: [facility], [address] [place] [address] CLIA ID: [id number] [facility] [employer] [facility] Interpretation and review of laboratory results Abnormal [facility] [employer] Performed by: [facility] [employer] [facility], [address] [place] [address] CLIA ID: [id number] [facility] [employer] [facility] Interpretation and review of laboratory results Abnormal [facility] Performed by: [facility], [address] [place] [address], [place] [address] CLIA ID: [id number] [facility] Progress Noteon 11-28-2023 Progress Note Patient [...] or swelling A&P: Continue inpatient management Normal [facility] Progress Note Nutrition rescreen completed. Patient referred to the Dietitian. A1C 10.4; Uncontrolled DM. Normal [facility] Progress Note -- Attestation signed by Chung Miner MD at 11/28/2023 12:39 PM I have personally performed a face to face diagnostic evaluation on this patient. In addition, I have reviewed the resident's/VP HUMAN RESOURCES/HEEL BLACKER's care plan and agree with those findings [...] imaging are reviewed as detailed in the resident's/VP HUMAN RESOURCES/HEEL BLACKER's note Department of Internal Medicine Division of Endocrinology, Diabetes, & Metabolism Endocrinology Note Patient Name: Taylor Wesley : 1965 AGE: 58 y.o. Room/Bed: [facility] A Admission Date: 11/26/2023 Visit Date: 11/28/2023 Reason for Endocrine Consult: Uncontrolled T2DM Provider/Team Requesting Consult: Dr. Linda PCP: Ion Williamson DO Outpt Bevel Face Stoner And Polisher: No ASSESSMENT: Uncontrolled T2DM with hyperglycemia S/p GERARDO with BL salpingoophorectomy Morbid obesity Steroid-induced hyperglycemia PLAN: Increase insulin glargine to 20 units Increase meal-time insulin to 7 units ICU goal <180 GMF goal <150 POCT BG [facility] Hypoglycemia management per protocol Carb controlled diet ANTICIPATED ENDOCRINE HOME GOING RECOMMENDATIONS: Optimized for Discharge from Endocrine standpoint: No Home Going Endocrine Rx Recommendations-- Pending Outpt Follow Up-- None SUBJECTIVE/HPI: CHIEF COMPLAINT: No chief complaint on file. Ms. Wesley is a 58yoF with a pmhx T2DM that presented to [facility] 11/25 for GERARDO with BL salpingoophorectomy [...] ml Out (more content not included)... Normal [facility] Progress Note -- Attestation signed by Robert Bruce MD at 11/28/2023 7:33 AM Patient rounded with residents. Doing well today. Passing gas. Abdomen is slightly more distended but is soft. Continues to have high blood sugars. Endocrinology is working to try to get them under control. A) Hyperglycemia secondary to diabetes Morbid obesity Uterine leiomyoma [facility] [employer] [facility] Progress Note Date: 11/28/2023 Time: 6:14 AM Please page the [facility] PATTERN[employer] MET[employer] ONC Call RES group via Secure Chat for any questions or concerns. Taylor Wesley 58 y.o. female , POD # 2 s/p GEARRDO, BSO Patient seen and examined. She voiced [...] glucose meter Result Date: 11/27/2023 Performed by: [facility], [address] [place] [address], [place] [address] CLIA ID: [id number] POCT glucose meter Result Date: 11/27/2023 Performed by: [facility], [address] [place] [address], [place] [address] CLIA ID: [id number] POCT glucose meter Result Date: 11/27/2023 Performed by: [facility], [address] [place] [address], [place] [address] CLIA ID: [id number] POCT glucose meter Result Date: 11/27/2023 Performed by: Xochitl (So-Shee) [employer] Ambrocio (more content not included)... Normal [facility] CARECOORDon 11-27-2023 [facility] Care Managment Initi al Assessment Date: 11/27/2023 Patient Name: Taylor Wesley : 1965 Patient Information Source of Information: Patient Cognition/Language: WFL - Within Functional Limits Permission given to speak with patient employee representative/caregiv er as indicated: Confirmation of Payer with patient/family: Yes Payer Name: Avani Gonzáles [employer] : No Confirmation of Primary Care Physician: [...] continue to follow. Akosua Hughes RN Normal [facility] CBC (HEMOGRAM)on 11-27-2023 Erythrocyte distribution width (RBC) [Ratio] 11.9 % Normal 11.5-15.0 [facility] Comment on above: Performed By: #### L [id number] #### Mailroom Messenger: VICKY GRACIA ([phone]) [facility] ([facility]) [address] [place] [address] Hematocrit (Bld) [Volume fraction] 37.8 % Normal 35.0-47.0 [facility] Comment on above: Performed By: #### L [id number] #### Mailroom Messenger: VICKY GARCIA ([phone]) [facility] [address] [place] [address] Hemoglobin (Bld) [Mass/Vol] 12.7 g/dL Normal 11.7-16.0 [facility] Comment on above: Performed By: #### L [id number] #### Mailroom Messenger: VICKY GARCIA ([phone]) [facility] ([facility]) [address] [place] [address] MCH (RBC) [Entitic mass] 29.1 pg Normal 26.0-34.0 [facility] Comment on above: Performed By: #### L [id number] #### Mailroom Messenger: VICKY GARCIA ([phone]) [facility]) [address] [place] [address] MCHC 33.6 % Normal 30.5-36.0 [facility] Comment on above: Performed By: #### L [id number] #### Mailroom Messenger: VICKY GARCIA ([phone]) [facility] ([facility]) [address] [place] [address] MCV (RBC) [Entitic vol] 86.7 fL Normal 77.0-99.0 [facility] Comment on above: Performed By: #### L [id number] #### Mailroom Messenger: VICKY GARCIA ([phone]) [facility] ([facility]) [address] [place] [address] Platelet mean volume (Bld) [Entitic vol] 10.2 fL Normal 9.0-12.7 [facility] Comment on above: Performed By: #### L [id number] #### Mailroom Messenger: VICKY GARCIA ([phone]) [facility] ([facility]) [address] [place] [address] Platelets (Bld) [#/Vol] 306 10*3/uL Normal 140-440 [facility] Comment on above: Performed By: #### L [id number] #### Mailroom Messenger: VICKY GARCIA ([phone]) [facility] ([facility]) [address] [place] [address] RBC (Bld) [#/Vol] 4.36 10*6/uL Normal 3.80-5.20 [facility] Comment on above: Performed By: #### L [id number] #### Mailroom Messenger: VICKY GARCIA ([phone]) [facility] ([facility]) [address] [place] [address] WBC (Bld) [#/Vol] 13.5 10*3/uL High 3.6-10.7 [facility] Comment on above: Performed By: #### L [id number] #### Mailroom Messenger: VICKY GARCIA ([phone]) [facility] ([facility]) [address] [place] [address] CBC panel Auto (Bld)on 11-26 Erythrocyte distribution width (RBC) [Ratio] 11.9 % 11.5 - 15.0 % [facility] Hematocrit (Bld) [Volume fraction] 37.8 % 35.0 - 47.0 % [facility] Hemoglobin (Bld) [Mass/Vol] 12.7 g/dL 11.7 - 16.0 g/dL [facility] Interpretation and review of laboratory results Abnormal [facility] MCH (RBC) [Entitic mass] 29.1 pg 26. 0 - 34.0 pg [facility] MCHC (RBC) [Mass/Vol] 33.6 % 30.5 - 36.0 % [facility] MCV (RBC) [Entitic vol] 86.7 fL 77.0 - 99.0 fL [facility] Platelet mean volume (Bld) [Entitic vol] 10.2 fL 9.0 - 12.7 fL [facility] Platelets (Bld) [#/Vol] 306 10*3/uL 140 - 440 10*3/uL [facility] RBC (Bld) [#/Vol] 4.36 10*6/uL 3.80 - 5.2 0 10*6/uL [facility] WBC (Bld) [#/Vol] 13.5 10*3/uL High 3.6 - 10.7 10*3/uL [facility] Consulton 11-27-2023 Consult -- Attestation signed by Chung Miner MD at 11/27/2023 2:33 PM (Updated) I have personally performed a face to face diagnostic evaluation on this patient. In addition, I have reviewed the resident's/VP HUMAN RESOURCES/HEEL BLACKER's care plan and agree with those findings [...] side effects related to Ozempic Discussed with beach expert to teach patient how to use insulin [...] imaging are reviewed as detailed in the resident's/VP HUMAN RESOURCES/HEEL BLACKER's note Department of Internal Medicine Division of Endocrinology, Diabetes, & Metabolism Endocrinology Note Patient Name: Taylor Wesley : 1965 AGE: 58 y.o. Room/Bed: [facility] A Admission Date: 11/26/2023 Visit Date: 11/27/2023 Reason for Endocrine Consult: Uncontrolled T2DM Provider/Team Requesting Consult: Dr. 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 Type of DM: 2 Onset of DM: 2 years ago Home DM Medication Regimen: glimepiride 2mg bid DM control (last A1c/glucose data): 10.6 Ms. Wesley is a 58yoF with a PMHx T2DM, cerebral palsy c/b paraplegia (wheelchair bound) that presented to [facility] 11/25 for GERARDO with BL salpingoophorectomy. [...] every mor (more content not included)... [facility] Laboratory - Chemistry and C hemistry - challengeon 11-27-2023 Glucose [Mass/Vol] 308 mg/dL High 70 - 100 mg/dL [facility] Glucose [Mass/Vol] 329 mg/dL High 70 - 100 mg/dL [facility] Glucose [Mass/Vol] 307 mg/dL High 70 - 100 mg/dL [facility] Glucose [Mass/Vol] 328 mg/dL High 70 - 100 mg/dL [facility] No Panel Informationon 11-26 Interpretation and review of laboratory results Abnormal [facility] Performed by: [facility], [address] [place] [address] CLIA ID: [id number] [employer] Interpretation and review of laboratory results Abnormal UpMo Performed by: [facility], [address] [place] [address] CLIA ID: [id number] Up[facility] [employer] Interpretation and review of laboratory results Abnormal [facility] Performed by: [facility], [address] [place] [address] CLIA ID: [id number] [employer] Interpretation and review of laboratory results Abnormal Up[facility] Performed by: [facility], [address] [place] [address] CLIA ID: [id number] [employer] No Panel InformationOrdered By: Pineda Hanson on 11-27-2023 Case Report Non-Gynecologic Cytology Case: [id number] Authorizing Provider: Robert Bruce MD Collected: 11/26/2023 0928 Ordering Location: [facility] OR Received: 11/26/2023 1405 Pathologist: Pineda Hanson MD Specimen: Peritoneal Washings, PELVIC WASHINGS [facility] [employer] Phone: Case Screening Location [facility], [address] [facility] [address]; CLIA: [id number]; Joint Commission: HCO [id number]; CAP: [id number] [facility] [employer] Phone: Comment h7xinFDuVVOncVZqIXtl NF ynygJtCBUvxVIbA5Equxvf RMwtMC3rVZ6srPkldGSbiN YqTADdJjTsk2gex081nGMb u7niAIBUQXavCLDEWGz6pO kqO65pg4A0PoshE33xdUNm YFM8MBLaKQFzdNYaQJXpNC X6KFWhpOTqO9fbEMWrKQ3i blecJKniDUhdYNKglRI8ID NohQCdA3FxBFSsHZqjGZKq flq6QbSfUm3hnAKvoGajBM xwYXJkXHBsYWluXGZzMjAg BCEBBAEVR94VPPCVQKLHTC NBTCBDQVNFUyBFWElTVCBG J2GmTNkXNmVJAT5SUDIRQP XtL9GmK3MPJzsJDWqyZQMp cGFyZFxwYXJ9 [facility] [employer] Phone: Disclaimer h1mjuFIqEZNejGYfIsYd RqQXPzb6eeGXUufHOhIyYg MzNcZnRuYmpcdWMxXGRlZm Zmc3gjz781kPAby8ebMNWj ItH6kCCgGIQeB95uGQUQN9 86CFWcSZidt8vnu8ElITNj pKMgh2K0IKOTEXggQQRVEG y2sLclQ21qy9A8PcxlI3nz WLSgRXKiG4QjIA5wEJQzHt a1ZSK4OQA6QJOuCHVlV5Zk IA9lWIShrEMjOWi3r6dpgH giPGDpWCF2s5gkIWxqlsIc AR3tmq7tmSf1d6tbcxKxPD StYKQjpYAOBDQlQ3RwsGek Ki0umIb9sVcxSbhdFZH4Vz c4ZJ7txd35hlk9tRugFLAv vrglKzJ5GAvuCMCqmyiiDM x6VCtzJYVxcQH1LEEcuQJe A6NrSPNrES1zney4MNL6QQ aiJVQhLkY7ZWFcdCFvXHAr jZwyOZtur200UAM8KfHtIX 5zJ6Pty8V9pU0zvURdJALj rDZjBcQuYYBkgu2nhIYfJZ znt5AnVCL5pnH5cURqoQAa JHPwXE19Btfah1TuDasfLP N6GWLacoDwu5Jjg0blOdNf jyYeS2qkZ9BwVGOnALEoIU LxWnWyriEzl1Fgi0EhmQUx vXh1b6uvYCUcTRSfzLfgw4 rqYRO3JWHxS8V9qGMhn8yc SIvqBFZgtJG3oxW1UQOyeD CeO0SixX3nKPUyGC7wpjx0 j6vpHCF1HHyrRPGuAmQ8fe V8ODZkzBFqSLTfxImpHYkd k375XLD9JuLjVEVkv6CgZ7 StvUspI57pfYrnS48vTNVd sAnsfL3scQdxwC8pFeGzYn MyNFxxbFxwbGFpblxmMVxm euS8TCetvzksCDCxOCbgY8 ryBxBxHAGtpKbmNVbbc9Gf TQQgGXUuOGHzHBfiZ2sxuF 2gnbdsVDcxRGQleQpcx9tf CeUepRJ4HB6qqcZjTUAxyJ lpcfM1udJanLerbN8nlL6f oBdhnN9fsPRtuHD5fspvVV luIHNpdHUgaHlicmlkaXph tVkylmvqbL1yMZR2fTHeVP S5eFDoDMFgQPLbPIBbaR94 ru0ofQWthoNwS0LdG1RkyR KknDsvGroyuLYhwQKgLw5g uDDzYN1oTTIkfLOoY7VeAM 4gXHBhclxwYXIgVGhlIHVz HXNjStAyqqOje0PdrI1gOK HaYOMtCJ40gmMleuR2pCZq YWJvdmUgdGVzdHMgaXMgcm VndWxhdGVkIGFzIGFuIGFu GHy5nQGwa3XaB4xprOVafx MxF2WlsRIrCMCOLV7kQPrk l1OchSTkkGXdn6NqBCKoQE YlbC7hWYCaEO3cLIEiJXek NAFkawJkar8kjiLsCVFqUP BxJ8YelmykwVkrsqDkVVOq jm7qkhPyOOB0YROmHRWjdZ ermJNrxEZqUMVxonC5d4My EFLlr9TqH0TyzZWgLBGywF FeTXF3t3XpzN9qGWsylADa OOMiVR4gvYKqXHVhZJLxPL FyZWQgYnkgdGhlIFVTIEZv j2ShVK7hXULldCurQYUlzO 0fs6RuZVKtv07aAJHKYBsn IFRoZSBGREEgaGFzIGRldG VybWluZWQgdGhhdCBzdWNo ZIKiYIElYQ5iTAAdwnMjmB Lcj2UpmLUvymXjo0LkriNv NYNxLPL1CpObiJZvXPOcux UJpIhzjG0gnT9bk1JqfT3a NPensyCnjGPqIn6iwIXtFK 9uIHBhcmFmZmluIGVtYmVk AUJhYTBmy0P8OH5tBHDlts 4zhblleSVjtY1kdOGrdwBe RS1dMA8mU7W3vQFaSBNiub Ace4fsLFx9pILoCTXsfPYk bWIzCelsTXQ7HNRlEQV2gs PbzgMoUEEbgAygvWR6qVQu KQEcCQUwJNYdZD29I3Otf3 AsF3hnQX86ENIaWNNjIIHq prYyl9peOQFjq8xtXGIwfQ IwG2TwETQniTBgvqwfLmXc DFP3SFVeMIS2kOEqBEPvK9 QowZZyaNCbfN77OL3yjFM3 HO9kCMV3CGmejZ0gRvIDzD 27ws0gvBW4y3ApPA1dW8Kf FOCeo0X9trGdAPEfTR1ljG BiZWVuIHZhbGlkYXRlZCBv rzMpMXEmnAGxOqqnAAH3rM MtoFQiJdJNTPX6nKLvENBz k2AjZLLuCIYuxnAegnDnWR BqNFZ0tDTaJSBmeABoq86i P8a5TV6scFnzWDNryWSbNF Afs2MpuFToeTk6gUAsArAf OWrgAHWwAVhicTd9nIA1SO 4hJCAvK5VfO0bskDYiMBGe DJMuyZZbdg0ijWYrbZ== [facility] Work Phone: Gross Description n3xjrBEkQTEryJMYIEA7 MD WqFN6sbVluiZl7vKcxDVJq moG1oFThMIphp8ldJWJ0o5 yfdyVINbjiPKEuUC7oIRvg FQWsGQ2bNxNhAJZnDnNsBQ BhcGVydzEyMjQwXHBhcGVy gMO8QUVhBG3ktmbqUIgkFE jcONZugxO2YMKepQRdV1Ko OFNtLE5kfieuWCY5ZXVOVg rcAh3fzVMmtJVCHjqzMvUz BpAyTUCqWVGoLHTje2wpql ECwexnvZp0YVt7NYPbJEVr eYUsy2J6IUeld9vmi8ZoY2 Jfs7GpINx4zS6MJazdE82e n1D9Hpq5LRCrRBw3VKicIH GjQUCoTud4PHv7L0tzYZBt DEniCIXuWFbtcYMvNKn4MI giv2YpvDWiTPi9QMepHLAs A6YiW5UaDIphRwBtZUkwFW ZdHQNuHLpaJZPdS4GBWVZt PNK7BOD2YpKsINq4VCwqNa WQYGM0WuC2QgV4PVh5EFFe HD6rTKjkkHGoFWuvDdyaUS faZ822DBqoWRDdW9McA7Es XFxzZyBcXGlkIDUxMDAyIF gbZZTaZ4RCJGHuIXL5OUJ6 QaUfTNa7XWibY5AUIZHbJJ ApBRUyBiNqOiW5MEx1YYGT Kb8zMxG4RWPeSiV5ZUA3ZA OuSKdqnjbfYCa2VWTbWAqy ndBxWQovXqrrPKyoB03mrY FyZCANClxwbGFpblxlcGlj TmVzdERvYzEgDQpcbHRycG CgTR4NCVe5uqDnKWCsVTnr faCpHQHuYOIWUEWzgZ7sAP UwPYrip6edmtucLyamMaQw CXVwxABuXG2RUGXlxSeeJA Vre9YgC6C6NBHeIWccu6jn OAAdIVvra0EwKMwABCIOCJ 5SWA7bnBX5QUuBJKPSQ4vZ mNKqZWFbT3sjmOL0a6wcdI Izl8u0DEurMBD2rRFrs9Tc uQkwClwomNT4ORtnYigojJ 5zdCBIWVBFUkxJTksgbmFt UZ8PSJTBDY1TvWEdNHSrQ4 zulRD3v1gmhJRyg2o1EQjv XTZ4zPckeZRhmnshkPMfvX xmczIwICBccHJvdGVjdHtc HzeqbYR6RWghQedreM2hnY MBKBQPTpiDPgvrdtCxSF9L ZGAAWzSZJO62NYN8AUD8kG B8Tn01CDHuOWBxhWBvCPfs S494lUbla4nkXtvalCE3KU qmCjeirB9cgTRQZKCSEsyR FfswuwBnHV1FUWCRFA5UxN BpRAGrWEzyoWH8a5gjxFZg f6j8BXpyGLO6mOveeHNmxa xsdHJjaFxmczIwICBmbHVp ZCByZWNlaXZlZCBccHJvdG QkkUtyGvxtrNU1AEslKwrt oW4jrVGSLWUSHjpWUktfmj SsGI4ZRTSCDyPEFP90ZWN6 KEP6dRP9M551GGLqCUUvaM UsVHioB944rE8sP8r8c9m0 kMxbCcbxaWN3YTagDrwqiX 5zdCBIWVBFUkxJTksgbmFt QB6BIMQIQQ6JtSJzJRRtCK hibLW7d9qznWOws1e7QZzi RVX2fTojfOPvdooigRZonI veyrOaAZ9vJXMnbwMOKobs XGNmMiBNYXRlcmlhbHMgUH JlaTPjJZB8ZZVxHPEsJABa VRHsiV1ArzDiYCZfJDGqCW XyoOxvWegvS0bdccarpUMp UC4UYSUunlRMIgeeRacrgv IyXHBhciANClxzYTMwXGVw qITJf2DoZTYCHdu1JERAMB BFXMlBVT7TWXUGJTFAFB5P MPcZKbLwGOojWlX4FE1uGs EpFWReCPxeEBtiHBK3HQV0 iZY7SAYWKAAVEJvIX4TgNI SFOVBEBQTaUI8OPBkAAHJY QWUUD22NYHDXWVVAJ0NKA0 jJZLmUURYLUDCCY40LAEJN WORHE5IQHQGSHPVQUAwTYI EJQa9AZANWQEVYNX9AJTwZ XhTcAVtXR35lJ9tDBBHTTb INX3YJCsFVSpQdBOSaG2w2 Lxv1Cr8SJIlCMcTQK0wHQb vzPOmqAyRscMVlp8G3cX5g h4k1KPUvpBB0rJMaBfTyTZ SlDUl0QRIUTATZHV7YEAMN M06YVZWCKWXRM4SLPBVIYs XLOXACA38KRSCYCUZQT2CZ M0pBWTKNVmEAZIZMN05VLX FUNFKID8HLRIEMLHMONpDZ KtSRQN6KUPXSFFAAEL8TEZ aJHnKkGBCRK2VMAzPHP5rg ZTPUUZDQXHZjHB5DNFjfnr WuADQvU33by2MIt8Qnm4ql uFaan8VvdKXcFK91GFTniQ HcQHR6AZ4teEieIROnJUgi cGFyZCANClxwbGFpbiANCn 0= [employer] Phone: Pathologist Interpretation Location [facility], [address] [place] [address]; CLIA: [id number]; Joint Commission: HCO 6964; CAP: [id number] [facility] [employer] Phone: Pathology report final diagnosis Narrative w1ozfIMoKYKjnZMeETvyUT rkmmOnXXQmbCXtJ9Gnhsoe LDtmGN7fYV5keKivqTXirC NjQPBdFwRrl4umx657kVRd z3hhWTTGMQkdPDORFTj2wB zfY83vf2Z7OqhzF0kqFKK3 UWexwdDbjhr3XGFvvNO3MT h9PRSknOHfnhVyNmNpWPCo fCMdfBO5GSDlFX1cqwhwRG peXAnhWWDimkV8TSTblFWa B4EkPPPqLA2ohkavBHG0MI czJZLdWPM5AbMpVFAfs6Sr vyv3OxHwpBQhYCcnvVQtur xmczIwXGNmMSBBICAtIFBl xZHrPyJEJTIfaG9bodMfXO aot7yallmwZOU2vA0oq4w9 WgwfBkYoBXYqpOXuLD1ZXC 1BTElHTkFOVCBDRUxMUyBJ REVOVElGSUVELlxwYXJccG FyZFxwYXJ9 [facility] [employer] Work Phone: [facility] Work Phone: Progress Noteon 11-27-2023 Progress Note PHYSICAL THERAPY [facility] Treatment Note Name/MRN: Taylor Wesley ([id number]) Date of : 1965 Age: 58 y.o. Room[facility]Bed: [facility] A Discharge Recommendation: Home with assist [...] Minutes: 29 Minutes Di Anaya PT Normal [facility] Progress Note Patient was evaluate d this [...] or swelling A&P: Continue inpatient management Normal [facility] Progress Note -- Attestation signed by Robert Bruce MD at 11/27/2023 7:14 AM Patient rounded with residents. Discussed surgical findings. Hemoglobin level stable. Pain well-controlled. Still dealing with hyperglycemia. Will ask endocrine to get involved to decrease hyperglycemic status. A) Hyperglycemia associated with diabetes Morbid obesity Uterine leiomyoma [facility] Progress Note Date: 11/27/2023 Time: 6:11 AM Please page the [facility] [facility] Call RES group via Secure Chat [...] mL/hr, IntraVENous, Continuous, Isabel Gonzalez APRN - DIESEL TECHNICIAN MECHANIC, Last Rate: 50 mL/hr at 11/26/23 09, [...] glucose meter Result Date: 11/26/2023 Performed by: [facility] [employer] [facility], [address] [place] [address] CLIA ID: [id number] POCT glucose meter Result Date: 11/26/2023 Performed by: [facility], [address] [place] [address] CLIA ID: [id number] POCT glucose meter Result Date: 11/26/2023 [facility]formed [facility]: [facility], [address] [place] [address] CLIA ID: [id number] POCT glucos (more content not included)... Normal [facility] IDNon 11-26-2023 IDN The patient is Moderately [...] address these barriers include nutritional consult. Normal [facility] Laboratory - Chemistry and C hemistry - challengeon 11-26-2023 Glucose [Mass/Vol] 321 mg/dL High 70 - 100 mg/dL [facility] Glucose [Mass/Vol] 356 mg/dL High 70 - 100 mg/dL [facility] Glucose [Mass/Vol] 313 mg/dL High 70 - 100 mg/dL [facility] Glucose [Mass/Vol] 321 mg/dL High 70 - 100 mg/dL [facility] Glucose [Mass/Vol] 270 mg/dL High 70 - 100 mg/dL [facility] No Panel Informationon 11-25 Interpretation and review of laboratory results Abnormal [facility] Performed by: [facility] [employer] [facility], [address] [place] [address] CLIA ID: [id number] [facility] Interpretation and review of laboratory results Abnormal [facility] Performed by: [facility], [address] [place] [address], [facility] [address] CLIA ID: [id number] [facility] Interpretation and review of laboratory results Abnormal [facility] Performed by: [facility], [address] [place] [address], [facility] [address] CLIA ID: [id number] [facility] Interpretation and review of laboratory results Abnormal [facility] Performed by: [facility], [address] [place] [address], [facility] [address] CLIA ID: [id number] [facility] Interpretation and review of laboratory results Abnormal [facility] Performed by: [facility], [address] [place] [address], [facility] [address] CLIA ID: [id number] [facility] Nursing Noteon 11-26-2023 Nursing Note Report called to REMEDIOS Torres [facility] Op Noteon 11-26-2023 Op Note Date: 11/26/2023 Location: [facility] OR Name: Taylor Wesley, : 1965, Diagnosis Pre-op Diagnosis * Intra-abdominal and pelvic swelling, mass and lump, unspecified site [R19.00] Post-op Diagnosis * Intra-abdominal and pelvic swelling, mass and lump, unspecified site [R19.00] Procedures TOTAL ABDOMINAL HYSTERECTOMY BILATERAL SALPINGO OOPHORECTOMY 24439 - IA TOTAL ABDOMINAL HYSTERECT W/WO RMVL TUBE OVARY [...] BILATERAL OVARIES AND PORTION OF OMENTUM Staff: Smelting Engineer: Emily Arana RN Scrub Person: Ana Madrigal RN [place] to Circ: Shoshana Ocampo [employer] Hourly Manager Student: Katie Levine Findings: large fibroid Complications: [...] (two hours if receiving Vancomycin or flouroquinolone) [facility] Op Note Date of surgery 11/26/2023 Preoperative [...] vaginal cuff followed by interrupted 0 Vicryl svegzv-py-kkncx's in the vagina. Hemostasis was noted pelvis [...] evidence of endometrial cancer or hyperplasia Normal [facility] Progress Noteon 11-26-2023 Progress Note Patient was [...] Di DO Dunia 11/26/2023 3:16 PM Normal [facility] ECG 12-LEADon 11-20-2023 ECG 12-LEAD IMPRESSION: Sinus rhythm Low voltage, precordial leads Electronically Signed On 11-20-2023 08:20:01 EDT by Biju Josue [facility] 36on 11-19-2023 36 Spoke to patient and she states that she Was instructed by her PCP to increase her glimepiride to 4mg bid which she is starting today. She is monitoring her sugars and will let them/us know if her glucose levels come down with the dose change. [facility] 36 Spoke to patient and she does [...] any help getting in to her PCP. [facility] 36 ----- Message from Robert Bruce MD [...] Message ----- From: Rachel Zarco APRN - DIESEL TECHNICIAN MECHANIC Sent: 11/19/2023 12:04 PM EDT To: Robert Bruce MD; Ion Williamson, Please see patient's abnormal A1c from PAT. She states that she has been struggling with higher than normal BG levels. BG 291 today. I wanted you to be aware and notified you per our PAT protocol. Thank you. [facility] BASIC METABOLIC PANELon 11-09 Anion gap [Moles/Vol] 7 mmol/L Normal 3-13 [facility] Comment on above: Performed By: #### L [id number] #### Mailroom Messenger: VICKY GARCIA ([phone]) [facility] ([facility]) [address] [place] [address] Calcium [Mass/Vol] 10.3 mg/dL Normal 8.4-10.4 [facility] Comment on above: Performed By: #### L [id number] #### Mailroom Messenger: VICKY GARCIA ([phone]) [facility] [address] [place] [address] Chloride [Moles/Vol] 98 mmol/L Normal 98-[address] [facility] Comment on above: Performed By: #### L [id number] #### Mailroom Messenger: VICKY GARCIA ([phone]) [facility] [address] [place] [address] [place] CO2 [Moles/Vol] 30 mmol/L Normal 22-30 [facility] Comment on above: Performed By: #### L [id number] #### Mailroom Messenger: VICKY GARCIA ([phone]) [facility]) [address] [place] [address] Creatinine [Mass/Vol] 0.33 mg/dL Low 0.52-1.04 [facility] Comment on above: Performed By: #### L [id number] #### Mailroom Messenger: VICKY GARCIA ([phone]) [facility] ([facility]) [address] [place] [address] GLOMERULAR FILTRATION RATE ML/MIN/1.73 SQ M.PREDICTED >90.0 Normal >60.0 [facility] Comment on above: Result Comment: Calc ulation based on the Chronic Kidney Disease Epidemiology Collaboration (CKD-EPI) equation refit without adjustment for race Performed By: #### L [id number] #### Mailroom Messenger: VICKY GARCIA ([phone]) [facility] ([facility]) [address] [place] [address] Glucose [Mass/Vol] 291 mg/dL High 70-100 [facility] Comment on above: Performed By: #### L [id number] #### Mailroom Messenger: VICKY GARCIA ([phone]) [facility]) [address] [place] [address] Potassium [Moles/Vol] 3.4 mmol/L Low 3.5-5.1 [facility] Comment on above: Performed By: #### L [id number] #### Mailroom Messenger: VICKY [phone]) [facility] [address] [place] [address] Sodium [Moles/Vol] 135 mmol/L Normal 135-145 [facility] Comment on above: Performed By: #### L [id number] #### Mailroom Messenger: VICKY GARCIA ([phone]) [facility] ([facility]) [address] [place] [address] Urea nitrogen [Mass/Vol] 18 mg/dL High 7-17 [facility] Comment on above: Performed By: #### L [id number] #### Mailroom Messenger: VICKY GARCIA ([phone]) [facility] ([facility]) [address] [place] [address] BLOOD TYPE AND SCREEN GELon 11-19-2023 ABO GROUPING A Normal [facility] Comment on above: Performed By: #### L [id number] #### Mailroom Messenger: VICKY GARCIA ([phone]) [facility] ([facility]) [address] [place] [address] RH TYPE IN BLOOD Positive Normal [facility] Comment on above: Performed By: #### L [id number] #### Mailroom Messenger: VICKY GARCIA ([phone]) [facility] ([facility]) [address] [place] [address] CBC (HEMOGRAM)on 11-19-2023 Erythrocyte distribution width (RBC) [Ratio] 12.3 % Normal 11.5-15.0 [facility] Comment on above: Performed By: #### L [id number] #### Mailroom Messenger: VICKY GARCIA ([phone]) [facility] ([facility]) [address] [place] [address] Hematocrit (Bld) [Volume fraction] 43.7 % Normal 35.0-47.0 [facility] Comment on above: Performed By: #### L [id number] #### Mailroom Messenger: VICKY GARCIA ([phone]) [facility] ([facility]) [address] [place] [address] Hemoglobin (Bld) [Mass/Vol] 14.6 g/dL Normal 11.7-16.0 [facility] Comment on above: Performed By: #### L [id number] #### Mailroom Messenger: VICKY GARCIA ([phone]) [facility]) [address] [place] [address] MCH (RBC) [Entitic mass] 28.5 pg Normal 26.0-34.0 [facility] Comment on above: Performed By: #### L [id number] #### Mailroom Messenger: VICKY GARCIA ([phone]) [facility] ([facility]) [address] [place] [address] MCHC 33.4 % Normal 30.5-36.0 [facility] Comment on above: Performed By: #### L [id number] #### Mailroom Messenger: VICKY GARCIA ([phone]) [facility]) [address] [place] [address] MCV (RBC) [Entitic vol] 85.4 fL Normal 77.0-99.0 [facility] Comment on above: Performed By: #### L [id number] #### Mailroom Messenger: VICKY GARCIA ([phone]) [facility] ([facility]) [address] [place] [address] Platelet mean volume (Bld) [Entitic vol] 10.2 fL Normal 9.0-12.7 [facility] Comment on above: Performed By: #### L [id number] #### Mailroom Messenger: VICKY GARCIA ([phone]) [facility]) [address] [place] [address] Platelets (Bld) [#/Vol] 316 10*3/uL Normal 140-440 [facility] Comment on above: Performed By: #### L [id number] #### Mailroom Messenger: VICKY GARCIA ([phone]) [facility]) [address] [place] [address] RBC (Bld) [#/Vol] 5.12 10*6/uL Normal 3.80-5.20 [facility] Comment on above: Performed By: #### L [id number] #### Mailroom Messenger: VICKY GARCIA ([phone]) [facility] [address] [place] [address] WBC (Bld) [#/Vol] 5.8 10*3/uL Normal 3.6-10.7 [facility] Comment on above: Performed By: #### L [id number] #### Mailroom Messenger: VICKY GARCIA ([phone]) [facility] [address] [place] [address] HEMOGLOBIN A1Con 11-19-2023 Glucose [Mass/Vol] 252 mg/dL Normal [facility] Comment on above: Performed By: #### L [id number] #### Mailroom Messenger: VICKY GARCIA ([phone]) [facility] ([facility]) [address] [place] [address] HbA1c (Bld) [Mass fraction] 10.4 % High <5.7 [facility] Comment on above: Result Comment: Norm al less than 5.7% Prediabetes 5.7% to 6.4% Diabetes 6.5% or higher --HgbA1C levels may not be accurate in patients who have renal disease, received recent blood transfusions, are anemic, or who have dyshemoglobinemia. Performed By: #### L [id number] #### Mailroom Messenger: VICKY GARCIA ([phone]) [facility] [address] [place] [address] PREPROCINSon 11-19-2023 PREPROCINS Medication List Accurate as [...] your scheduled surgery time. Please bring your [facility] Surgical folder and medication list with you day of surgery. We encourage you to write down any questions you may have for the surgeon, anesthesiologist, or other members of the surgical team and bring it with you the day of surgery. Please bring photo ID and insurance information. Normal [facility] Progress Noteon 11-19-2023 Progress Note [facility] Wesley : 1965 Primary Care Physician: Ion Williamson, DO The patient and/or family/surrogate voluntarily agreed to participate in ACP services. Patient?s cognitive capacity: A&OX3 Code Status: [x] [FULL CODE - Continue all advanced life support: CPR,intubation,invasiv e procedures] [_] [DNR-CCA - DO NOT do CPR, intubation] [_] [DNR-BOTTLE CAPPER - Comfort care only] [_] DNR form [...] patient and/or family/surrogate. Rachel Zarco APRN - DIESEL TECHNICIAN MECHANIC Acute care solutions 11/19/2023, 10:02 AM [facility] 10-21-2023 36 error [facility] 2023 36 PAT: 11.19.2023 at 9:30 am SX: 11.26.2023 at 9 am arrival at 7 am Post op 12.13.2023 at 8:30 am Folder and instructions given. [facility] Office Visiton 2023 Follow-up visit [id number] Taylor Wesley 1965 F Date Provider Department Center 2023 [id number] BRUCE [facility] None Family History Problem Relation Age of Onset Breast cancer Mother Diabetes Maternal Grandmother Family Status - Relation Status Age at Mother Maternal Grandmother Level of Service:40751 [place] OFFICE/OUTPATIENT NEW LOW [facility] 30 MINUTES Reason for Visit and Comments: Female Problem [263] [facility] [id number] 36 Name of caller: Rayna Contact phone number: [phone] Relationship to Patient: spouse Provider: teo Practice: [facility] Chief Complaint/Reason for Call: patients spouse [...] hours to return their call: No Normal [facility] Cervical or vaginal specimen microscopic examination by liquid based cytology (reportOrdered By: Luisana Matos on 06-25-2023 Cytology report Cyto stain.thin prep Doc (Cvx/Vag) Comment . [facility] Comment on above: Criteria not met, HP V Genotype not performed.Performed at: - Lab[address] [id number] Director: Sue Floyd MD, Phone: [phone] at: =[facility] [id number] Director: Sue Floyd MD, Phone: [phone] Cervical or vagninal specime n microscopic examination by cytology stain (reported asOrdered By: Luisana Matos on 06-25-2023 Cytology report Cyto stain Doc (Cvx/Vag) Comment . [facility] Comment on above: The Pap smear [...] DNA Probe+sig amp Ql (Cvx) Negative Negative [facility] Comment on above: This nucleic acid am plification test detects fourteen high-risk HPV types (16,18,31,33,35,39,45,51,52,56,58,59,66,68)without differentiation. Laboratory - CytologyOrdered By: Luisana Matos on 06-25-2023 Recruitment Coordinator Cyto stain Nom (Cvx/Vag) [ID] Comment . [facility] Comment on above: Mili Milan, Cyto technologist (ASCP) Laboratory - Miscellaneous t estsOrdered By: Luisana Matos on 06-25-2023 Service comment (Unsp spec) [Interp] . . [facility] No Panel InformationOrdered By: Luisana Matos on 06-25-2023 Estradiol (E2) Level 36.9 pg/mL [facility] Comment on above: NORMAL REFERENCE RAN [...] ESTRADIOL CONCENTRATION. Follicle Stimulating Hormone 38.1 mIU/mL [facility] Comment on above: NORMAL REFERENCE RAN [...] on 06-25-2023 TSH Qn 0.95 uIU/mL 0.358-3.74 [facility] Thin prep Papanicolaou smear with manual screeningOrdered By: Luisana Matos on 06-25-2023 Thin prep Papanicolaou smear with manual screening Comment . [facility] Comment on above: NEGATIVE FOR INTRAEP ITHELIAL LESION OR MALIGNANCY. This liquid based Th inPrep(R) pap test was screened withthe use of an image guided system. Antonieta 06-21-2023 CNPN Telephone (AGGENS2) TAYLOR WESLEY ([id number]) 1965 F Date Time Provider Department 06/21/23 [...] Encounter Status:Closed by VICKY DAVIDSON on 07/04/23 [facility] DBT Breast - right diagnosti c for implanton 06-14-2023 [facility] GUILLERMINA DIAG W ROBERTO RTon 024 GUILLERMINA DIAG W ROBERTO RT * * *Final Report* * * DATE OF EXAM: Jun 14 2023 9:17AM AAW 0629 - GUILLERMINA DIAG W ROBERTO RT / PROCEDURE REASON: multiple diagnoses * * * * Physician Interpretation * * * * #[id number] - GUILLERMINA DIAG W ROBERTO RT UNILATERAL [...] ultrasound, 11/02/2022 mammogram, and 04/27/2022 mammogram - [facility]. The right breast is heterogeneously dense, which [...] not done. Ismael Barrientos M.D. tab/:06/14/2023 16:12:49 Sales Development Consultant(s): Vicky Martinez RT(R)(M), [facility] Mammogram BI-RADS: 3 Probably benign finding - [...] Health, Family Medicine, and Medical/Surgical Oncology, the [facility] has carefully reviewed the data and reached [...] their providers when to stop screening mammograms. Bit Bender: Alida Transcribe Date/Time: Jun 14 2023 8:31A Dictated by : ISMAEL BARRIENTOS MD This examination was interpreted and the report reviewed and electronically signed by: ISMAEL BARRIENTOS MD on Jun 14 2023 4:12PM EST [id number] [facility] (AGGB[facility]CR[facility] TAYLOR WESLEY ([id number]) 1965 F Date Time Provider Department 02/04/23 JAZMIN ZAZUETA [facility] During your visit today, we recorded the following information about you: Jazmin Zazueta MD 02/04/2023 9:54 AM Signed Please notify patient US probably benign. 6 month follow up recommended. Order placed for US. She is scheduled to see HEEL BLACKER in May 2023. MD Dionisio Healy Amy, PROJECT MANAGEMENT PROFESSOR.DIESEL TECHNICIAN MECHANIC 02/08/2023 12:07 PM Signed I spoke with her and she is aware. We will schedule 6 month US at her next visit. Allergies As of Date: 02/04/2023 Noted Allergy Reaction AMOXICILLIN 05/13/2018 8 - GI Upset Date Reviewed: 01/04/2023 Reviewed by: Jazmin Zazueta MD - Fully Assessed Reason for Visit: Results [95] Primary Visit Diagnosis:Mass of axillary tail of left breast [N63.32] Order(s):Seeq LEFT [[id number]] Order #: [id number] FUTURE Prescriptions as of 02/08/2023 - glimepiride (AMARYL) 2 mg tablet Take 1 tablet by mouth twice daily with meals. - indapamide (LOZOL) 2.5 mg tablet Take 1 tablet by mouth once daily. - Mardil MedicalTOUCH VERIO TEST STRIPS test strip USE TO [...] Encounter Status:Closed by JAZMIN ZAZUETA on 02/08/23 [facility] Absolute lymphocyte countOrd ered By: Yenni Williamson on 01-25-2023 Lymphocytes Auto (Unsp spec) [#/Vol] 2.61 10*3/uL 0.83-4.51 [facility] Basophil percentageOrdered B y: Yenni Williamson on 01-25-2023 Basophils/100 WBC (Bld) 0.8 % 0-1 W [facility] Bilirubin [Mass/Vol] 0.50 mg/dL 0.20-1.00 [facility] Comment on above: For patients on eltr ombopag therapy, use of Dimension [place] TBIL is not recommended. Chloride [Moles/Vol] 101 mmol/L 98-107 [facility] Cholesterol [Mass/Vol] 129 mg/dL <200 [facility] Comment on above: <200 mg/dL Desirable 200-240 mg/dL Borderline >240 mg/dL High Risk Eosinophils/100 WBC (Bld) 5.3 % 0-5 [facility] Glucose [Mass/Vol] 141 mg/dL 74-106 [facility] Comment on above: Fasting Glucose resu lt greater than or equal to 126 mg/dL suggests DIABETES MELLITUS per A.D.A. criteria. Neutrophils (Bld) [#/Vol] 2.5 10*3/uL 2.0-7.7 [facility] Neutrophils/100 WBC (Bld) 40.5 % 47-70 [facility] Potassium [Moles/Vol] 3.2 mmol/L 3.5-5.1 [facility] Protein [Mass/Vol] 8.0 g/dL 6.4-8.2 [facility] Sodium [Moles/Vol] 137 mmol/L 136-145 [facility] Triglyceride [Mass/Vol] 127 mg/dL <199 [facility] Comment on above: The drugs N-Acetylcy steine and Metamizole may falsely depress this assay.Serum Triglycerides Reference Interval Normal <150 mg/dL Borderline high 150 - 199 mg/dL High 200 - 499 mg/dL Very High > or = 500 mg/dL WBC (Bld) [#/Vol] 6.1 10*3/uL 4.4-11.0 [facility] Blood erythrocytes count (nu mber/volume)[facility] on 01-25-2023 RBC (Bld) [#/Vol] 4.60 10*6/uL 4.2-5.4 [facility] Blood hemoglobin measurement (mass/volume)Ordered By: [facility] on 01-25-2023 Hemoglobin (Bld) [Mass/Vol] 13.2 g/dL 12.0-15.0 [facility] Blood lymphocytes/100 leukoc ytesOrdered By: [facility] on 01-25-2023 Lymphocytes/100 WBC (Bld) 42.9 % 19-41 [facility] Blood monocytes/100 leukocyt esOrdered By: [facility] on 01-25-2023 Monocytes/100 WBC (Bld) 10.5 % 0-10 [facility] Blood platelet mean volumeOr dered By: [facility] on 01-25-2023 Platelet mean volume (Bld) [Entitic vol] 10.0 fL 6.2-12.0 [facility] Determination of erythrocyte mean corpuscular volume (MCV)Ordered By: [facility] on 01-25-2023 MCV (RBC) [Entitic vol] 90.0 fL 81-99 W [facility] Hematocrit Auto (Bld) [Volum e fraction]Ordered By: [facility] on 01-25-2023 Hematocrit (Bld) [Volume fraction] 41.4 % 37-47 [facility] Laboratory - Chemistry and C hemistry - challengeOrdered By: [facility] on 01-25-2023 ALP [Catalytic activity/Vol] 75 U/L 45-117 [facility] ALT [Catalytic activity/Vol] 43 U/L 13-56 [facility] CO2 [Moles/Vol] 32.0 mmol/L 21.0-32.0 [facility] Globulin (S) [Mass/Vol] 4.8 g/dL 2.2-4.2 W [facility] Urea nitrogen/Creatinine [Mass ratio] 28.3 mg/mg 10-20 [facility] Laboratory - Hematology and Cell countsOrdered By: [facility] on 01-25-2023 Erythrocyte distribution width (RBC) [Entitic vol] 42.8 fL 35.1-43.9 [facility] Erythrocyte distribution width (RBC) [Ratio] 13.1 % 11.6-14.6 [facility] Immature granulocytes/100 WBC (Bld) 0.000 % 0.0-0.9 [facility] Comment on above: IG% - Immature Granu locytes (promyelocytes, myelocytes and metamyelocytes) > 1% indicates that a LEFT SHIFT is Present. MCH (RBC) [Entitic mass] 28.7 pg 27.0-32.0 [facility] Nucleated RBC/100 WBC (Bld) [Ratio] 0 % 0-5 [facility] US AXILLA ONLY LTon 01-09 [facility] US AXILLA ONLY LT * * *Final Report* * * DATE OF EXAM: Jan 25 2023 9:35AM AAW 0591 - [facility] US AXILLA ONLY LT / PROCEDURE REASON: Unspecified lump in axillary tail of the left breast * * * * Physician Interpretation * * * * #[id number] [facility] US AXILLA ONLY LT ULTRASOUND OF LEFT BREAST AND AXILLA: 01/25/2023 HISTORY: Patient presents with left axillary lump. RESULT: Comparison is made to exams dated: 12/22/2020 mammogram and 08/08/2012 mammogram - [facility]. Color flow and real-time ultrasound of [...] recommended to demonstrate stability. Ismael ayala/alida:01/25/2023 09:58:29 Sales Development Consultant(s): Marycruz Shearer R.D.M.S., Corporate Legal Manager Center Ultrasound BI-RADS: 3 Probably benign finding [...] Health, Family Medicine, and Medical/Surgical Oncology, the [facility] has carefully reviewed the data and reached [...] their providers when to stop screening mammograms. Bit Bender: Alida Transcribe Date/Time: Jan 25 2023 9:35A Dictated by : ISMAEL BARRIENTOS MD This examination was interpreted and the report reviewed and electronically signed by: ISMAEL BARRIENTOS MD on Jan 25 2023 9:58AM EST [id number] Normal [facility] Auto (RBC) [Mass/Vol]Or dered By: Yenni Williamson on 01-25-2023 MCHC (RBC) [Mass/Vol] 31.9 g/dL 32-36 [facility] No Panel InformationOrdered By: Yenni Williamson on 01-25-2023 Estimated GFR (MDRD) Amer 180 mL/min >60 [facility] Comment on above: GFR Calc Estimated GFR (MDRD) Non-Af Amer 149 mL/min >60 [facility] Comment on above: Non- GFR Calc Platelets bldOrdered By: Radha Williamson on 01-25-2023 Platelets (Bld) [#/Vol] 318 10*3/uL 150-450 [facility] Serum or plasma albumin aj urement (mass/volume)Ordered By: Yenni Williamson on 01-25-2023 Albumin [Mass/Vol] 3.2 g/dL 3.2-5.0 [facility] Serum or plasma albumin/glob ulin mass ratioOrdered By: Yenni Williamson on 01-25-2023 Albumin/Globulin [Mass ratio] 0.7 {ratio} 0.9-2.4 [facility] Serum or plasma calcium aj urement (mass/volume)Ordered By: Yenni Williamson on 01-25-2023 Calcium [Mass/Vol] 9.6 mg/dL 8.5-10.1 [facility] Serum or plasma cholesterol in HDL measurement (mass/volume)Ordered By: Yenni Wliliamson on 01-25-2023 Cholesterol in HDL [Mass/Vol] 35 mg/dL >40 [facility] Comment on above: The drugs N-Acetylcy steine and Metamizole may falsely depress this assay. Reference Range HDL <40 mg/dL Low HDL Cholesterol HDL >or= 60 mg/dL High HDL Cholesterol Serum or plasma cholesterol in VLDL measurement (mass/volume)Ordered By: Yenni Williamson on 01-25-2023 Cholesterol in VLDL [Mass/Vol] 25 mg/dL 5-40 [facility] Serum or plasma creatinine m easurement (mass/volume)Or[facility] By: [facility] on 01-25-2023 Creatinine [Mass/Vol] 0.46 mg/dL 0.55-1.02 [facility] Comment on above: The validity of the calculated GFR & GFRAA in patients over 70 years has not been determined. Clinical correlation is essential. Serum or plasma low density lipoprotein (LDL) cholesterol measurement (mass/volume)[facility] on 01-25-2023 Cholesterol in LDL [Mass/Vol] 69 mg/dL 0-130 [facility] Serum or plasma urea nitroge n measurement (mass/volume)Or[facility]: [facility] 01-25-2023 Urea nitrogen [Mass/Vol] 13 mg/dL 7-18 [facility] Thin prep Papanicolaou smear with manual screeningOrdered By: [facility] on 01-25-2023 Thin prep Papanicolaou smear with manual screening 33 U/L 15-37 [facility] Thin prep Papanicolaou smear with manual screening 4 5-15 [facility] Whole blood hemoglobin A1c/t otal hemoglobin ratio (mass fraction)[facility]: [facility] on 01-25-2023 HbA1c (Bld) [Mass fraction] 6.8 % 3.8-5.6 [facility] Comment on above: Normal < 5.7 % Predi abetic 5.7 - 6.4 % Diabetic >or= 6.5 % Please note range changes. CHAIMOVon 01-04-2023 CNOV Office Visit (AGGBR R) TAYLOR WESLEY ([id number]) 1965 F Date Time Provider Department 01/04/23 [...] Signed Jazmin Zazueta MD [facility] [address] [place] [address] SUBJECTIVE Chief Complaint: Patient presents with: Breast [...] risk scre (more content not included)... Normal [facility] CNOVon 11-09-2022 CNOV Office Visit (AGGBRC R) TAYLOR WESLEY ([id number]) 1965 F Date Time Provider Department 11/09/22 [...] months with bilateral mammograms and appointment with HEEL BLACKER. Jazmin Zazueta MD 11/09/2022 12:44 PM Signed Jazmin Zazueta MD [facility] [address] [place] [id number] SUBJECTIVE Chief Complaint: Patient presents with: [...] changes. No nipple discharge. Nursing Notes: Carmen Belrtan NA 11/09/2022 9:36 AM Signed Patient presents for follow up after imaging. Denies any new concerns. ALISSON Freed AGE AT [place] 12 AGE AT FIRST NA FAMILY HISTORY OF BREAST CANCER Yes (IF YES) NUMBER OF FIRST DEGREE RELATIVES WITH BREAST CANCER 1 PREVIOUS BREAST BIOPSIES Yes RACE -Estonian Review of Systems Constitutional: Negative for fever, [...] risk for (more content not included)... Normal [facility] CNCOon 11-02-2022 [facility] HNO ID: [id number] Author: Coordinator, Mammography Service: ? Author Type: Physician Type: Letter Filed: 11/05/2022 11:35 PM Note Text: Corporate Legal Manager Center [address] [place] [address] November 02, 2022 PID: [id number] Taylor Wesley [address] [facility] [address] [place] [id number] Dear Ms. Wesley, We are pleased to [...] report will be kept on file at [facility] as part of your permanent medical record and are available for your continuing care. Thank you for allowing us to help in meeting your health care needs. Sincerely, Dr. Whitfield Interpreting Radiologist [facility] (Normal over [address]) Normal [facility] DIAGNOSTIC RTon 11-03-19 23 [facility] DIAGNOSTIC RT * * *Final Report* * * DATE OF EXAM: Nov 02 2022 9:27AM AAW 0626 - [facility] DIAGNOSTIC RT / PROCEDURE REASON: multiple diagnoses * * * * Physician Interpretation * * * * #[id number] - [facility] DIAGNOSTIC RT UNILATERAL RIGHT DIGITAL DIAGNOSTIC [...] 09/01/2021 mammogram, 02/28/2021 mammogram, 02/07/2021 mammogram - [facility], and 12/22/2020 mammogram - [facility]. The tissue of right breast is [...] is recommended. Stu Whitfield M.D. kk/:11/02/2022 09:45:43 Sales Development Consultant(s): Vicky Martinez RT(R)(M), [facility] letter sent: Normal over 40 Mammogram BI-RADS: [...] Health, Family Medicine, and Medical/Surgical Oncology, the [facility] has carefully reviewed the data and reached [...] their providers when to stop screening mammograms. Bit Bender: Alida Transcribe Date/Time: Nov 02 2022 8:36A Dictated by : STU WHITFIELD MD This examination was interpreted and the report reviewed and electronically signed by: STU WHITFIELD MD on Nov 02 2022 9:45AM EST [id number] Normal [facility] Whole blood hemoglobin A1c/t otal hemoglobin ratio (mass fraction)Ordered By: Dr. Williamson on 07-16-2022 HbA1c (Bld) [Mass fraction] 6.8 % 3.8-5.6 [facility] Comment on above: Normal < 5.7 % Predi abetic 5.7 - 6.4 % Diabetic >or= 6.5 % Please note range changes. No Panel InformationOrdered By: Dr. Williamson on 05-31-2022 Urine Microalbumin/Creatinine Ratio DCP [facility] Comment on above: Test not performed Thin prep Papanicolaou smear with manual screeningOrdered By: Dr. Williamson on 05-31-2022 Thin prep Papanicolaou smear with manual screening < 5.0 mg/L NO RANGE EST. [facility] Urine creatinine measurement (mass/volume)Ordered By: Dr. Williamson on 05-31-2022 Creatinine (U) [Mass/Vol] 46.10 mg/dL NO RANGE EST. [facility] Whole blood hemoglobin A1c/t otal hemoglobin ratio (mass fraction)Ordered By: Dr. Williamson on 05-07-2022 HbA1c (Bld) [Mass fraction] 8.0 % 3.8-5.6 [facility] Comment on above: Normal < 5.7 % Predi abetic 5.7 - 6.4 % Diabetic >or= 6.5 % Please note range changes. GUILLERMINA MEJIA BILATon 02-1 [facility] Laboratory - Microbiology an d Antimicrobial susceptibilityon 03-06-2022 SARS-CoV-2 (COVID-19) RNA SHARA+probe Ql (Unsp spec) Not detected [facility] No Panel Informationon 03-06 Influenza Types A,B Rapid (Clinic) Not detected [facility] Laboratory - Microbiology an d Antimicrobial susceptibilityon 02-05-2022 SARS-CoV-2 (COVID-19) RNA SHARA+probe Ql (Unsp spec) Not detected [facility] No Panel Informationon 02-05 Influenza Types A,B Rapid (Clinic) Not detected [facility] Basophil percentageOrdered B y: Dr. Williamson on 01-30-2022 Bilirubin [Mass/Vol] 0.60 mg/dL 0.20-1.00 [facility] Comment on above: For patients on eltr ombopag therapy, use of Dimension [place] TBIL is not recommended. Chloride [Moles/Vol] 100 mmol/L 98-107 [facility] Cholesterol [Mass/Vol] 127 mg/dL <200 [facility] Comment on above: <200 mg/dL Desirable 200-240 mg/dL Borderline >240 mg/dL High Risk Glucose [Mass/Vol] 97 mg/dL 74-106 [facility] Potassium [Moles/Vol] 3.2 mmol/L 3.5-5.1 [facility] Protein [Mass/Vol] 8.1 g/dL 6.4-8.2 [facility] Sodium [Moles/Vol] 138 mmol/L 136-145 [facility] Triglyceride [Mass/Vol] 114 mg/dL <199 [facility] Comment on above: The drugs N-Acetylcy steine and Metamizole may falsely depress this assay.Serum Triglycerides Reference Interval Normal <150 mg/dL Borderline high 150 - 199 mg/dL High 200 - 499 mg/dL Very High > or = 500 mg/dL Laboratory - Chemistry and C hemistry - challengeOrdered By: Dr. Williamson on 01-30-2022 Albumin [Mass/Vol] 3.6 g/dL 2.9-4.4 [facility] ALP [Catalytic activity/Vol] 70 U/L 45-117 [facility] ALT [Catalytic activity/Vol] 40 U/L 13-56 [facility] CO2 [Moles/Vol] 30.0 mmol/L 21.0-32.0 [facility] Globulin (S) [Mass/Vol] 4.8 g/dL 2.2-4.2 W [facility] Urea nitrogen/Creatinine [Mass ratio] 30.5 mg/mg 10-20 [facility] No Panel InformationOrdered By: Dr. Williamson on 01-30-2022 Addendum Document Comment . [facility] Comment on above: The SPE pattern appe ars unremarkable. Evidence ofmonoclonal protein is not apparent.Performed at: [employer] [address] [id number] Director: Jorge Guerrero PhD, Phone: [phone] Kxdsd-2-Clgqslacn 0.2 g/dL 0.0-0.4 [facility] Htgep-1-Pdwmmltac 0.9 g/dL 0.4-1.0 [facility] Estimated GFR (MDRD) Amer 197 mL/min >60 [facility] Comment on above: GFR Calc Estimated GFR (MDRD) Non-Af Amer 163 mL/min >60 [facility] Comment on above: Non- GFR Calc Gamma Globulins 1.8 g/dL 0.4-1.8 [facility] Urine Microalbumin/Creatinine Ratio 8.3 mg/g CRE <30 [facility] Protein Fractions Elph [Inte rp]Ordered By: Dr. Williamson on 01-30-2022 Protein Fractions [Interp] Comment . [facility] Comment on above: Protein electrophore sis scan will follow via computer,mail, or real estate lawyer delivery. Serum albumin to globulin ra sarah by protein electrophoresisOrdered By: Dr. Williamson on 01-30-2022 Albumin/Globulin Elph [Mass ratio] 0.9 0.7-1.7 [facility] Serum globulin measurement ( mass/volume)Ordered By: Dr. Williamson on 01-30-2022 Globulin (S) [Mass/Vol] 4.0 g/dL 2.2-3.9 W [facility] Serum or plasma albumin aj urement (mass/volume)Ordered By: Dr. Williamson on 01-30-2022 Albumin [Mass/Vol] 3.3 g/dL 3.2-5.0 [facility] Serum or plasma albumin/glob ulin mass ratioOrdered By: Dr. Williamson on 01-30-2022 Albumin/Globulin [Mass ratio] 0.7 {ratio} 0.9-2.4 [facility] Serum or plasma beta globuli n measurement by electrophoresis (mass/volume)Ordered By: Dr. Williamson on 01-30-2022 Beta globulin Elph [Mass/Vol] 1.1 g/dL 0.7-1.3 [facility] Serum or plasma calcium aj urement (mass/volume)Ordered By: Dr. Williamson on 01-30-2022 Calcium [Mass/Vol] 9.0 mg/dL 8.5-10.1 [facility] Serum or plasma cholesterol in HDL measurement (mass/volume)Ordered By: Dr. Williamson on 01-30-2022 Cholesterol in HDL [Mass/Vol] 39 mg/dL >40 [facility] Comment on above: The drugs N-Acetylcy steine and Metamizole may falsely depress this assay. Reference Range HDL <40 mg/dL Low HDL Cholesterol HDL >or= 60 mg/dL High HDL Cholesterol Serum or plasma cholesterol in VLDL measurement (mass/volume)Ordered By: Dr. Williamson on 01-30-2022 Cholesterol in VLDL [Mass/Vol] 23 mg/dL 5-40 [facility] Serum or plasma creatinine m easurement (mass/volume)Ordered By: Dr. Williamson on 01-30-2022 Creatinine [Mass/Vol] 0.43 mg/dL 0.55-1.02 [facility] Comment on above: The validity of the calculated GFR & GFRAA in patients over 70 years has not been determined. Clinical correlation is essential. Serum or plasma low density lipoprotein (LDL) cholesterol measurement (mass/volume)Ordered By: Dr. Williamson on 01-30-2022 Cholesterol in LDL [Mass/Vol] 65 mg/dL 0-130 [facility] Serum or plasma urea nitroge n measurement (mass/volume)Ordered By: Dr. Williamson on 01-30-2022 Urea nitrogen [Mass/Vol] 13 mg/dL 7-18 [facility] Thin prep Papanicolaou smear with manual screeningOrdered By: Dr. Williamson on 01-30-2022 Thin prep Papanicolaou smear with manual screening 28 U/L 15-37 [facility] Thin prep Papanicolaou smear with manual screening 8 5-15 [facility] Thin prep Papanicolaou smear with manual screening 7.7 mg/L NO RANGE EST. [facility] Thin prep Papanicolaou smear with manual screening See comment [facility] Comment on above: Result: Not Observed Total protein bloodOrdered B y: Dr. Williamson on 01-30-2022 Protein [Mass/Vol] 7.6 g/dL 6.0-8.5 [facility] Urine creatinine measurement (mass/volume)Ordered By: Dr. Williamson on 01-30-2022 Creatinine (U) [Mass/Vol] 93.10 mg/dL NO RANGE EST. [facility] Whole blood hemoglobin A1c/t otal hemoglobin ratio (mass fraction)Ordered By: Dr. Williamson on 01-30-2022 HbA1c (Bld) [Mass fraction] 6.4 % 3.8-5.6 [facility] Comment on above: Normal < 5.7 % Predi abetic 5.7 - 6.4 % Diabetic >or= 6.5 % Please note range changes. CNOVon 10-19-2021 CNOV Office Visit (FAMPOR ) TAYLOR WESLEY ([id number]) 1965 F Date Time Provider Department 10/19/21 1:00 PM MEGAN CONKLIN During your visit today, we recorded the following information about you: Temperature Pulse Respiration Blood pressure 97.3 degrees 91/minute 16/minute 148/78 Megan Conklin DO 10/19/2021 1:23 PM Signed Taylor C Torrance 56 year old female seen today for [...] (HCC) [E11.69 (more content not included)... Normal [facility] Absolute lymphocyte counton 10-16-2021 Lymphocytes Auto (Unsp spec) [#/Vol] 2.89 10*3/uL 0.83-4.51 [facility] Work Phone: Basophil percentageon 2021 Basophils/100 WBC (Bld) 0.5 % 0-1 W [facility] Work Phone: Bilirubin [Mass/Vol] 0.70 mg/dL 0.20-1.00 [facility] Work Phone: Comment on above: For patients on eltr ombopag therapy, use of Dimension [place] TBIL is not recommended. Chloride [Moles/Vol] 102 mmol/L 98-107 [facility] Work Phone: Cholesterol [Mass/Vol] 130 mg/dL <200 [facility] Comment on above: <200 mg/dL Desirable 200-240 mg/dL Borderline >240 mg/dL High Risk Eosinophils/100 WBC (Bld) 4.6 % 0-5 [facility] Work Phone: Glucose [Mass/Vol] 100 mg/dL 74-106 [facility] Work Phone: Comment on above: Fasting Glucose resu lt from 100 to 125 mg/dL suggests IMPAIRED HOMEOSTASIS per A.D.A. criteria. Neutrophils (Bld) [#/Vol] 2.3 10*3/uL 2.0-7.7 [facility] Work Phone: Neutrophils/100 WBC (Bld) 37.6 % 47-70 [facility] Work Phone: Potassium [Moles/Vol] 3.2 mmol/L 3.5-5.1 [facility] Work Phone: Protein [Mass/Vol] 7.8 g/dL 6.4-8.2 [facility] Work Phone: Sodium [Moles/Vol] 136 mmol/L 136-145 [facility] Work Phone: Triglyceride [Mass/Vol] 128 mg/dL <199 C [facility] Comment on above: The drugs N-Acetylcy steine and Metamizole may falsely depress this assay.Serum Triglycerides Reference Interval Normal <150 mg/dL Borderline high 150 - 199 mg/dL High 200 - 499 mg/dL Very High > or = 500 mg/dL WBC (Bld) [#/Vol] 6.1 10*3/uL 4.4-11.0 [facility] Work Phone: Blood erythrocytes count (nu mber/volume)on 10-16-2021 RBC (Bld) [#/Vol] 4.45 10*6/uL 4.2-5.4 [facility] Work Phone: Blood hemoglobin measurement (mass/volume)on 10-16-2021 Hemoglobin (Bld) [Mass/Vol] 12.9 g/dL 12.0-15.0 [facility] Work Phone: Blood lymphocytes/100 leukoc yteson 10-16-2021 Lymphocytes/100 WBC (Bld) 47.3 % 19-41 [facility] Work Phone: Blood monocytes/100 leukocyt eson 10-16-2021 Monocytes/100 WBC (Bld) 10.0 % 0-10 W [facility] Work Phone: Blood platelet mean volumeon 10-16-2021 Platelet mean volume (Bld) [Entitic vol] 10.2 fL 6.2-12.0 [facility] Work Phone: CMP EXTERNAL QAIon 2 Albumin [facility] Alkaline Phosphatase [facility] ALT [facility] Anion Gap [facility] AST [facility] Bilirubin, Total [facility] BUN [facility] Calcium [facility] Chloride [facility] CO2 [facility] Creatinine per volume [facility] eGFR-All Other Races 149 [facility] GFR/1.73 sq M.predicted among blacks MDRD (S/P/Bld) [Vol rate/Area] 181 mL/min/{1.73_m2} C [facility] Glucose [facility] Potassium [facility] Protein, Total [facility] Sodium [facility] Determination of erythrocyte mean corpuscular volume (MCV)on 10-16-2021 MCV (RBC) [Entitic vol] 90.1 fL 81-99 W [facility] Work Phone: Hematocrit Auto (Bld) [Volum e fraction]on 10-16-2021 Hematocrit (Bld) [Volume fraction] 40.1 % 37-47 [facility] Work Phone: LIPID PANEL (OUTSIDE)on LDL:HDL Ratio [facility] Non-HDL Cholesterol [facility] TC:HDL Ratio [facility] VLDL Cholesterol [facility] Laboratory - Chemistry and C hemistry - challengeon 10-16-2021 ALP [Catalytic activity/Vol] 73 U/L 45-117 [facility] Work Phone: ALT [Catalytic activity/Vol] 34 U/L 13-56 [facility] Work Phone: CO2 [Moles/Vol] 29.0 mmol/L 21.0-32.0 [facility] Work Phone: Globulin (S) [Mass/Vol] 4.6 g/dL 2.2-4.2 W [facility] Work Phone: Urea nitrogen/Creatinine [Mass ratio] 19.6 mg/mg 10-20 [facility] Work Phone: Laboratory - Hematology and Cell countson 10-16-2021 Erythrocyte distribution width (RBC) [Entitic vol] 44.3 fL 35.1-43.9 [facility] Work Phone: Erythrocyte distribution width (RBC) [Ratio] 13.5 % 11.6-14.6 [facility] Work Phone: Immature granulocytes/100 WBC (Bld) 0.000 % 0.0-0.9 [facility] Work Phone: Comment on above: IG% - Immature Granu locytes (promyelocytes, myelocytes and metamyelocytes) > 1% indicates that a LEFT SHIFT is Present. MCH (RBC) [Entitic mass] 29.0 pg 27.0-32.0 [facility] Work Phone: Nucleated RBC/100 WBC (Bld) [Ratio] 0 % 0-5 [facility] Work Phone: MCHC Auto (RBC) [Mass/Vol]on 10-16-2021 MCHC (RBC) [Mass/Vol] 32.2 g/dL 32-36 [facility] Work Phone: No Panel Informationon 10-16 Estimated GFR (MDRD) Amer 181 mL/min >60 [facility] Work Phone: Comment on above: GFR Calc Estimated GFR (MDRD) Non-Af Amer 149 mL/min >60 [facility] Work Phone: Comment on above: Non- GFR Calc Platelets bldon 10-16-2021 Platelets (Bld) [#/Vol] 309 10*3/uL 150-450 [facility] Work Phone: Serum or plasma albumin aj urement (mass/volume)on 10-16-2021 Albumin [Mass/Vol] 3.2 g/dL 3.2-5.0 [facility] Work Phone: Serum or plasma albumin/glob ulin mass ratioon 10-16-2021 Albumin/Globulin [Mass ratio] 0.7 {ratio} 0.9-2.4 [facility] Work Phone: Serum or plasma calcium aj urement (mass/volume)on 10-16-2021 Calcium [Mass/Vol] 9.5 mg/dL 8.5-10.1 [facility] Work Phone: Serum or plasma cholesterol in HDL measurement (mass/volume)on 10-16-2021 Cholesterol in HDL [Mass/Vol] 39 mg/dL >40 [facility] Comment on above: The drugs N-Acetylcy steine and Metamizole may falsely depress this assay. Reference Range HDL <40 mg/dL Low HDL Cholesterol HDL >or= 60 mg/dL High HDL Cholesterol Serum or plasma cholesterol in VLDL measurement (mass/volume)on 10-16-2021 Cholesterol in VLDL [Mass/Vol] 26 mg/dL 5-40 [facility] Work Phone: Serum or plasma creatinine m easurement (mass/volume)on 10-16-2021 Creatinine [Mass/Vol] 0.46 mg/dL 0.55-1.02 [facility] Work Phone: Comment on above: The validity of the calculated GFR & GFRAA in patients over 70 years has not been determined. Clinical correlation is essential. Serum or plasma low density lipoprotein (LDL) cholesterol measurement (mass/volume)on 10-16-2021 Cholesterol in LDL [Mass/Vol] 65 mg/dL 0-130 [facility] Serum or plasma urea nitroge n measurement (mass/volume)on 10-16-2021 Urea nitrogen [Mass/Vol] 9 mg/dL 7-18 [facility] Work Phone: Thin prep Papanicolaou smear with manual screeningon 10-16-2021 Thin prep Papanicolaou smear with manual screening 28 U/L 15-37 [facility] Work Phone: Thin prep Papanicolaou smear with manual screening 5 5-15 [facility] Work Phone: Whole blood hemoglobin A1c/t otal hemoglobin ratio (mass fraction)on 10-16-2021 HbA1c (Bld) [Mass fraction] 6.1 % 3.8-5.6 [facility] Comment on above: Normal < 5.7 % Predi abetic 5.7 - 6.4 % Diabetic >or= 6.5 % Please note range changes. Antonieta 09-14-2021 KAYDEN Telephone (PATITO) TAYLOR WESLEY ([id number]) 1965 F Date Time Provider Department 09/14/21 MILI MONCADA During your visit today, we recorded the following information about you: LEONARD Oliva 09/14/2021 12:59 PM Signed Results left on patient voicemail. Taylor Wesley's Custom Cancer Panel through 1-800-DENTIST was negative for a pathogenic variant. 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 Please see [employer] message for further discussion. LEONARD Oliva Licensed, [...] Encounter Status:Closed by MILI MONCADA on 09/14/21 [facility] 09-12-2021 CNOV Office Visit (FAMPOR ) TAYLOR WESLEY ([id number]) 1965 F Date Time Provider Department 09/12/21 [...] 1 Ampule via nebulizer as needed. - NanoSight VERIO TEST STRIPS test strip USE TO [...] complication, without long-term current use of insulin ([facility]) - LIPID PANEL BASIC; Future [...] Conklin DO 09/12/21 Referring Provider: MEGAN CONKLIN [[id number]] Allergies As of Date: 09/12/2021 Noted Allergy Reaction AMOXICILLIN 05/13/2018 8 - GI Upset Date Reviewed: 09/12/2021 Reviewed by: DO Davis Montoya (more content not included)... Normal [facility] GUILLERMINA DIAGNOSTIC RTon 09-02-19 [facility] Absolute lymphocyte counton 06-15-2021 Lymphocytes Auto (Unsp spec) [#/Vol] 2.87 10*3/uL 0.83-4.51 [facility] Work Phone: Basophil percentageon 2021 Basophils/100 WBC (Bld) 0.5 % 0-1 W [facility] Work Phone: Chloride [Moles/Vol] 104 mmol/L 98-107 [facility] Work Phone: Eosinophils/100 WBC (Bld) 4.7 % 0-5 [facility] Work Phone: Glucose [Mass/Vol] 98 mg/dL 74-106 [facility] Work Phone: Neutrophils (Bld) [#/Vol] 3.7 10*3/uL 2.0-7.7 [facility] Work Phone: Neutrophils/100 WBC (Bld) 48.5 % 47-70 [facility] Work Phone: Potassium [Moles/Vol] 3.7 mmol/L 3.5-5.1 [facility] Work Phone: Comment on above: Slight Hemolysis, Re sult may be falsely increased. Sodium [Moles/Vol] 137 mmol/L 136-145 [facility] Work Phone: WBC (Bld) [#/Vol] 7.7 10*3/uL 4.4-11.0 [facility] Work Phone: Blood erythrocytes count (nu mber/volume)on 06-15-2021 RBC (Bld) [#/Vol] 4.72 10*6/uL 4.2-5.4 [facility] Work Phone: Blood hemoglobin measurement (mass/volume)on 06-15-2021 Hemoglobin (Bld) [Mass/Vol] 14.0 g/dL 12.0-15.0 [facility] Work Phone: [phone] Blood lymphocytes/100 leukoc yteson 06-15-2021 Lymphocytes/100 WBC (Bld) 37.5 % 19-41 [facility] Work Phone: Blood manual differential co mment interpretation (narrative result)on 06-15-2021 Manual differential comment Barrie (Bld) [Interp] SCANNED [facility] Work Phone: Blood monocytes/100 leukocyt eson 06-15-2021 Monocytes/100 WBC (Bld) 8.5 % 0-10 W [facility] Work Phone: Blood platelet mean volumeon 06-15-2021 Platelet mean volume (Bld) [Entitic vol] 9.6 fL 6.2-12.0 [facility] Work Phone: Determination of erythrocyte mean corpuscular volume (MCV)on 06-15-2021 MCV (RBC) [Entitic vol] 89.4 fL 81-99 W [facility] Work Phone: Hematocrit Auto (Bld) [Volum e fraction]on 06-15-2021 Hematocrit (Bld) [Volume fraction] 42.2 % 37-47 [facility] Work Phone: Laboratory - Chemistry and C hemistry - challengeon 06-15-2021 CO2 [Moles/Vol] 29.0 mmol/L 21.0-32.0 [facility] Work Phone: Magnesium [Mass/Vol] 2.0 mg/dL 1.6-2.6 [facility] Work Phone: Comment on above: Slight Hemolysis, Re sult may be falsely increased. Urea nitrogen/Creatinine [Mass ratio] 34.4 mg/mg 10-20 [facility] Work Phone: Laboratory - Hematology and Cell countson 06-15-2021 Erythrocyte distribution width (RBC) [Entitic vol] 42.4 fL 35.1-43.9 [facility] Work Phone: Erythrocyte distribution width (RBC) [Ratio] 12.9 % 11.6-14.6 [facility] Work Phone: Immature granulocytes/100 WBC (Bld) 0.300 % 0.0-0.9 [facility] Work Phone: Comment on above: IG% - Immature Granu locytes (promyelocytes, myelocytes and metamyelocytes) > 1% indicates that a LEFT SHIFT is Present. MCH (RBC) [Entitic mass] 29.7 pg 27.0-32.0 [facility] Work Phone: Nucleated RBC/100 WBC (Bld) [Ratio] 0 % 0-5 [facility] Work Phone: MCHC Auto (RBC) [Mass/Vol]on 06-15-2021 MCHC (RBC) [Mass/Vol] 33.2 g/dL 32-36 [facility] Work Phone: No Panel Informationon 06-15 Estimated Creatinine Clearance Calc 188.00 ml/min [facility] Work Phone: Estimated GFR (MDRD) Amer 179 mL/min >60 [facility] Work Phone: Comment on above: GFR Calc Estimated GFR (MDRD) Non-Af Amer 148 mL/min >60 [facility] Work Phone: Comment on above: Non- GFR Calc Platelets bldon 06-15-2021 Platelets (Bld) [#/Vol] 335 10*3/uL 150-450 [facility] Work Phone: Serum or plasma calcium aj urement (mass/volume)on 06-15-2021 Calcium [Mass/Vol] 10.2 mg/dL 8.5-10.1 [facility] Work Phone: Serum or plasma creatinine m easurement (mass/volume)on 06-15-2021 Creatinine [Mass/Vol] 0.46 mg/dL 0.55-1.02 [facility] Work Phone: Comment on above: The validity of the calculated GFR & GFRAA in patients over 70 years has not been determined. Clinical correlation is essential. Serum or plasma urea nitroge n measurement (mass/volume)on 06-15-2021 Urea nitrogen [Mass/Vol] 16 mg/dL 7-18 [facility] Work Phone: Thin prep Papanicolaou smear with manual screeningon 06-15-2021 Thin prep Papanicolaou smear with manual screening 4 5-15 [facility] Work Phone: Basophil percentageon 2021 Chloride [Moles/Vol] 101 mmol/L 98-107 [facility] Work Phone: Glucose [Mass/Vol] 89 mg/dL 74-106 [facility] Work Phone: Potassium [Moles/Vol] 3.4 mmol/L 3.5-5.1 [facility] Work Phone: Sodium [Moles/Vol] 136 mmol/L 136-145 [facility] Work Phone: Laboratory - Chemistry and C hemistry - challengeon 06-13-2021 CO2 [Moles/Vol] 32.0 mmol/L 21.0-32.0 [facility] Work Phone: Urea nitrogen/Creatinine [Mass ratio] 20.4 mg/mg 10-20 [facility] Work Phone: No Panel Informationon 06-13 Estimated GFR (MDRD) Amer 136 mL/min >60 [facility] Work Phone: Comment on above: GFR Calc Estimated GFR (MDRD) Non-Af Amer 112 mL/min >60 [facility] Work Phone: Comment on above: Non- GFR Calc Serum or plasma calcium aj urement (mass/volume)on 06-13-2021 Calcium [Mass/Vol] 9.7 mg/dL 8.5-10.1 [facility] Work Phone: Serum or plasma creatinine m easurement (mass/volume)on 06-13-2021 Creatinine [Mass/Vol] 0.59 mg/dL 0.55-1.02 [facility] Work Phone: Comment on above: The validity of the calculated GFR & GFRAA in patients over 70 years has not been determined. Clinical correlation is essential. Serum or plasma urea nitroge n measurement (mass/volume)on 06-13-2021 Urea nitrogen [Mass/Vol] 12 mg/dL 7-18 [facility] Work Phone: Thin prep Papanicolaou smear with manual screeningon 06-13-2021 Thin prep Papanicolaou smear with manual screening 3 5-15 [facility] Work Phone: Basophil percentageon 2021 Chloride [Moles/Vol] 100 mmol/L 98-107 [facility] Work Phone: Glucose [Mass/Vol] 105 mg/dL 74-106 [facility] Work Phone: Comment on above: Fasting Glucose resu lt from 100 to 125 mg/dL suggests IMPAIRED HOMEOSTASIS per A.D.A. criteria. Potassium [Moles/Vol] 3.0 mmol/L 3.5-5.1 [facility] Work Phone: Sodium [Moles/Vol] 137 mmol/L 136-145 [facility] Work Phone: Laboratory - Chemistry and C hemistry - challengeon 06-06-2021 CO2 [Moles/Vol] 31.0 mmol/L 21.0-32.0 [facility] Work Phone: Urea nitrogen/Creatinine [Mass ratio] 32.8 mg/mg 10-20 [facility] Work Phone: No Panel Informationon 06-06 Estimated GFR (MDRD) Amer 182 mL/min >60 [facility] Work Phone: Comment on above: GFR Calc Estimated GFR (MDRD) Non-Af Amer 151 mL/min >60 [facility] Work Phone: Comment on above: Non- GFR Calc Serum or plasma calcium aj urement (mass/volume)on 06-06-2021 Calcium [Mass/Vol] 10.0 mg/dL 8.5-10.1 [facility] Work Phone: Serum or plasma creatinine m easurement (mass/volume)on 06-06-2021 Creatinine [Mass/Vol] 0.46 mg/dL 0.55-1.02 [facility] Work Phone: Comment on above: The validity of the calculated GFR & GFRAA in patients over 70 years has not been determined. Clinical correlation is essential. Serum or plasma urea nitroge n measurement (mass/volume)on 06-06-2021 Urea nitrogen [Mass/Vol] 15 mg/dL 7-18 [facility] Work Phone: Thin prep Papanicolaou smear with manual screeningon 06-06-2021 Thin prep Papanicolaou smear with manual screening 6 5-15 [facility] Work Phone: CBC W/DIFFon 05-04-2021 BASO ABS 0.10 K/CU MM Normal 0-0.2 [facility] Comment on above: Performed By: #### L [id number], [id number] #### [facility] [address] [place] [address] Basophils/100 WBC (Bld) 0.8 % Normal 0-[address] [facility] Comment on above: Performed By: #### L 550.17829, L200.40184 #### [facility] [address] [place] [address] EOS ABS 0.20 K/CU MM Normal 0-0.5 [facility] Comment on above: Performed By: #### L [id number], [id number] #### [facility] [address] [place] [address] Eosinophils/100 WBC (Bld) 3.3 % Normal 0-5 [facility] Comment on above: Performed By: #### L 550.70792, [id number] #### [facility] [address] [place] [address] Erythrocyte distribution width (RBC) [Ratio] 13.2 % Normal 11-14.5 [facility] Comment on above: Performed By: #### L 550.30589, [id number] #### [facility] [address] [place] [address] Hematocrit (Bld) [Volume fraction] 41.1 % Normal 35.0-47.0 [facility] Comment on above: Performed By: #### L 550.94547, L200.81892 #### [facility] [address] [place] [address] Hemoglobin (Bld) [Mass/Vol] 13.2 g/dL Normal 11.5-15.5 [facility] Comment on above: Performed By: #### L 550.88637, L200.50698 #### [facility] [address] [place] [address] IMMATR GRAN ABS 0.00 K/CU MM Normal Less than 2 [facility] Comment on above: Performed By: #### L 550.08137, L200.40104 #### [facility] [address] [place] [address] IMMATURE GRAN % 0.2 % Normal Less than 2 [facility] Comment on above: Performed By: #### L 550.76566, [id number] #### [facility] [address] [place] [address] LYMPH ABS 2.70 K/CU MM Normal 0.9-4.4 [facility] Comment on above: Performed By: #### L 550.75193, L200.28057 #### [facility] [address] [place] [address] Lymphocytes/100 WBC (Bld) 43.9 % High 20-40 [facility] Comment on above: Performed By: #### L 550.62452, L200.56629 #### [facility] [address] [place] [address] MCHC (RBC) [Mass/Vol] 32.1 g/dL Normal 32.0-36.0 [facility] Comment on above: Performed By: #### L 550.74110, L200.11719 #### [facility] [address] [place] [address] MCV (RBC) [Entitic vol] 90.3 fL Normal 80.0-99.0 [facility] Comment on above: Performed By: #### L 550.85568, L200.19983 #### [facility] [address] [place] [address] MONO ABS 0.60 K/CU MM Normal 0.1-1.1 [facility] Comment on above: Performed By: #### L 550.20072, L200.43520 #### [facility] [address] [place] [address] Monocytes/100 WBC (Bld) 9.3 % Normal 2-[address] [facility] Comment on above: Performed By: #### L 550.67222, L200.74670 #### [facility] [address] [place] [address] NEUTROPHIL ABS 2.60 K/CU MM Normal 2.0-8.3 [facility] Comment on above: Performed By: #### L 550.31631, L200.34143 #### [facility] [address] [place] [address] Neutrophils/100 WBC (Bld) 42.5 % Low 45-75 [facility] Comment on above: Performed By: #### L 550.31264, L200.15098 #### [facility] [address] [place] [address] Nucleated RBC/100 WBC (Bld) [Ratio] 0.0 % Normal Less than 1 [facility] Comment on above: Performed By: #### L 550.08854, [id number] #### [facility] [address] [place] [address] Platelet mean volume (Bld) [Entitic vol] 10.5 fL Normal 9.4-12.4 [facility] Comment on above: Performed By: #### L 550.88653, L200.21054 #### [facility] [address] [place] [address] PLT 382 K/CU MM Normal 150-450 [facility] Comment on above: Performed By: #### L 550.97768, L200.48882 #### [facility] [address] [place] [address] RBC 4.55 M/CU MM Normal 3.90-5.30 [facility] Comment on above: Performed By: #### L 550.84101, L200.49022 #### [facility] [address] [place], [place] [id number] WBC 6.1 K/CUMM Normal 4.5-11.0 [facility] Comment on above: Performed By: #### L 550.80469, L200.81722 #### [facility] [address] [place] [address] CMPon 05-04-2021 Albumin [Mass/Vol] 3.8 g/dL Normal 3.2-5.0 [facility] Comment on above: Performed By: #### L 550.93860, L200.53777 #### [facility] [address] [place], [place] [id number] Albumin/Globulin [Mass ratio] 0.9 {ratio} Normal 0.8-2.0 [facility] Comment on above: Performed By: #### L 550.77793, L200.99329 #### [facility] [address] [place] [address] ALK PHOS 79 U/L Normal 45-117 [facility] Comment on above: Performed By: #### L 550.50964, L200.60115 #### [facility] [address] [id number] ALT [Catalytic activity/Vol] 41 U/L Normal 13-61 [facility] Comment on above: Result Comment: RESU LTS MAY BE FALSELY DEPRESSED AFTER THE ADMINISTRATION OF SULFASALAZINE AND/OR SULFAPYRIDINE. Performed By: #### L 550.27389, L200.67566 #### [facility] [address] [place] [address] Anion gap [Moles/Vol] 9 mmol/L Normal 5-16 [facility] Comment on above: Performed By: #### L 550.07487, L200.88924 #### [facility] [address] [place] [address] AST [Catalytic activity/Vol] 28 U/L Normal 8-34 [facility] Comment on above: Result Comment: RESU LTS MAY BE FALSELY DEPRESSED AFTER THE ADMINISTRATION OF SULFASALAZINE AND/OR SULFAPYRIDINE. Performed By: #### L 550.51142, L200.67723 #### [facility] [address] [place] [address] BILI TOTAL 0.80 MG/DL Normal 0.2-1.0 [facility] Comment on above: Performed By: #### L 550.78115, L200.12293 #### [facility] [address] [place], [place] [id number] Calcium [Mass/Vol] 10.5 mg/dL Normal 8.5-10.5 [facility] Comment on above: Result Comment: NOTE NEW NORMAL RANGE DUE TO REAGENT CHANGE Performed By: #### L 550.85712, L200.92762 #### [facility] [place] [address] Chloride [Moles/Vol] 100 mmol/L Normal 98-107 [facility] Comment on above: Performed By: #### L 550.83496, L200.31672 #### [facility] [place] [address] CO2 [Moles/Vol] 29.0 mmol/L Normal 21-32 [facility] Comment on above: Performed By: #### L 550.36900, L200.49946 #### [facility] [place] [address] Creatinine [Mass/Vol] 0.38 mg/dL Low 0.510-0.950 [facility] Comment on above: Result Comment: Shanice ents receiving either N-Acetylcysteine (NAC) or Metamizole prior to venipuncture, may have falsely depressed results. Performed By: #### L 550.38462, L200.94282 #### [facility] [address] [place] [address] Globulin (S) [Mass/Vol] 4.2 g/dL Normal 2.2-4.[address] [facility] Comment on above: Performed By: #### L 550.45905, L200.51721 #### [facility] [address] [place] [address] Glucose [Mass/Vol] 84 mg/dL Normal 70-100 [facility] Comment on above: Result Comment: 70-1 00- Normal Fasting; 100-125 Impaired Fasting; greater than 126 on more than one result- Diabetes. ADA guidelines. Results may be falsely elevated after the administration of Sulfapyridine. Results may be falsely depressed after the administration of Sulfasalazine. Performed By: #### L 550.73163, L200.26642 #### [facility] [address] [place] [address] Potassium [Moles/Vol] 3.2 mmol/L Low 3.5-5.1 [facility] Comment on above: Performed By: #### L 550.79896, L200.53884 #### [facility] [address] [place] [address] 45160 Protein [Mass/Vol] 8.0 g/dL Normal 6.0-8.5 [facility] Comment on above: Performed By: #### L 550.22141, L200.14938 #### [facility] [address] [place] [address] 92721 Sodium [Moles/Vol] 138 mmol/L Normal 136-145 [facility] Comment on above: Performed By: #### L 550.78152, L200.53554 #### [facility] [address] [place], [place] [address] Urea nitrogen [Mass/Vol] 12 mg/dL Normal 7-26 [facility] Comment on above: Performed By: #### L 550.69190, L200.42970 #### [facility] [address] [place] [address] Urea nitrogen/Creatinine [Mass ratio] 32 mg/mg High 15- [facility] Comment on above: Performed By: #### L 550.80425, L200.77173 #### [facility] [address] [place], [place] [address] GFR ESTon 05-04-2021 IF AMER Greater than 60 Normal [facility] Comment on above: Performed By: #### L 550.14961, L200.75484 #### [facility] [address] [place] [address] 6[address]05 IF non-AFR AMER Greater than 60 Normal [facility] Comment on above: Performed By: #### L 550.58445, L200.24462 #### [facility] [address] [place] [address] 60051 HGB A1C GLYCOHBon 05-04-2021 HbA1c (Bld) [Mass fraction] 5.9 % Normal 4.3-6.0 [facility] Comment on above: Performed By: #### L 550.30708, L200.15103 #### [facility] [address] [place] [address]78 Laboratory - Microbiology an d Antimicrobial susceptibilityon 04-16-2021 SARS-CoV-2 (COVID-19) RNA SHARA+probe Ql (Unsp spec) Not detected [facility] Work Phone: No Panel Informationon 04-16 Influenza Types A,B Rapid (Clinic) Not detected [facility] Work Phone: [facility] DIAGNOSTIC RTon 02-29-20 [facility] US BIOPSY BREAST RTon 2020 [facility] GIULLERMINA DIAGNOSTIC RTon 02-08-20 [facility] No Panel Informationon 02-07 [facility] CMPon 01-12-2021 Albumin [Mass/Vol] 4.1 g/dL Normal 3.2-5.0 [facility] Comment on above: Performed By: #### L 500.59131, L500.51385 #### [facility] [address] [place] [address] 09265 Albumin/Globulin [Mass ratio] 1.0 {ratio} Normal 0.8-2.0 [facility] Comment on above: Performed By: #### L 500.82699, L500.50600 #### [facility] [address] [place] [address] 58197 ALK PHOS 96 U/L Normal 45-117 [facility] Comment on above: Performed By: #### L 500.07400, L500.45437 #### [facility] [address] [place] [address] 30492 ALT [Catalytic activity/Vol] 93 U/L High 13-61 [facility] Comment on above: Result Comment: RESU LTS MAY BE FALSELY DEPRESSED AFTER THE ADMINISTRATION OF SULFASALAZINE AND/OR SULFAPYRIDINE. Performed By: #### L 500.79678, L500.75253 #### [facility] [address] [place] [address] 13088 Anion gap [Moles/Vol] 10 mmol/L Normal 5-16 [facility] Comment on above: Performed By: #### L 500.39105, L500.09428 #### [facility] [place] [address] AST [Catalytic activity/Vol] 108 U/L High 8-34 [facility] Comment on above: Result Comment: RESU LTS MAY BE FALSELY DEPRESSED AFTER THE ADMINISTRATION OF SULFASALAZINE AND/OR SULFAPYRIDINE. Performed By: #### L 500.92232, L500.26305 #### [facility] [address] [place] [address] BILI TOTAL 1.10 MG/DL High 0.2-1.0 [facility] Comment on above: Performed By: #### L 500.05405, L500.64055 #### [facility] [address] [place] [address] Calcium [Mass/Vol] 10.1 mg/dL Normal 8.5-10.5 [facility] Comment on above: Result Comment: NOTE NEW NORMAL RANGE DUE TO REAGENT CHANGE Performed By: #### L 500.07946, L500.03303 #### [facility] [address] [place] [address] Chloride [Moles/Vol] 95 mmol/L Low 98-107 [facility] Comment on above: Performed By: #### L 500.03406, L500.24089 #### [facility] [address] [place], [place] [address] CO2 [Moles/Vol] 31.0 mmol/L Normal 21-32 [facility] Comment on above: Performed By: #### L 500.92251, L500.56260 #### [facility] [address] [place], [place] [address] Creatinine [Mass/Vol] 0.41 mg/dL Low 0.510-0.950 [facility] Comment on above: Result Comment: Shanice ents receiving either N-Acetylcysteine (NAC) or Metamizole prior to venipuncture, may have falsely depressed results. Performed By: #### L 500.75442, L500.92010 #### [facility] [place] [address] Globulin (S) [Mass/Vol] 4.3 g/dL High 2.2-4.[address] [facility] Comment on above: Performed By: #### L 500.34050, L500.13678 #### [facility] [address] [place] [address] 57139 Glucose [Mass/Vol] 255 mg/dL High 70-100 [facility] Comment on above: Result Comment: 70-1 00- Normal Fasting; 100-125 Impaired Fasting; greater than 126 on more than one result- Diabetes. ADA guidelines. Results may be falsely elevated after the administration of Sulfapyridine. Results may be falsely depressed after the administration of Sulfasalazine. Performed By: #### L 500.00310, L500.14855 #### [facility] [address] [place] [address] 11667 Potassium [Moles/Vol] 3.5 mmol/L Normal 3.5-5.1 [facility] Comment on above: Result Comment: Slig ht Hemolysis, Result may be affected. Performed By: #### L 500.04899, L500.37929 #### [facility] [place] [address] Protein [Mass/Vol] 8.4 g/dL Normal 6.0-8.5 [facility] Comment on above: Performed By: #### L 500.86166, L500.33020 #### [facility] [place] [address] Sodium [Moles/Vol] 135 mmol/L Low 136-145 [facility] Comment on above: Performed By: #### L 500.62818, L500.12921 #### [facility] [address] [place] [address] 68406 Urea nitrogen [Mass/Vol] 13 mg/dL Normal 7-26 [facility] Comment on above: Performed By: #### L 500.99759, L500.94226 #### [facility] [address] [place] [address] 69328 Urea nitrogen/Creatinine [Mass ratio] 32 mg/mg High 15-24 [facility] Comment on above: Performed By: #### L 500.84491, L500.34822 #### [facility] [address] [place], [place] [address] GFR ESTon 01-12-2021 IF AMER Greater than 60 Normal [facility] Comment on above: Performed By: #### L 500.76839, L500.75151 #### [facility] [address] [place], [place] [address] IF non-AFR AMER Greater than 60 Normal [facility] Comment on above: Performed By: #### L 500.52758, L500.34330 #### [facility] [address] [place], [place] [address] HGB A1C GLYCOHBon 01-12-2021 HbA1c (Bld) [Mass fraction] 9.9 % High 4.3-6.0 [facility] Comment on above: Performed By: #### L 550.76461, L200.17905 #### [facility] [address] [place] [address] 28042 CBC W/DIFFon 12-13-2020 BASO ABS 0.00 K/CU MM Normal 0-0.2 [facility] Comment on above: Performed By: #### L 550.92138, L200.09005 #### [facility] [address] [place] [address] Basophils/100 WBC (Bld) 0.6 % Normal 0-[address] [facility] Comment on above: Performed By: #### L 550.39292, L200.55475 #### [facility] [address] [place] [address] EOS ABS 0.30 K/CU MM Normal 0-0.5 [facility] Comment on above: Performed By: #### L 550.07535, L200.04615 #### [facility] [address] [place] [address] Eosinophils/100 WBC (Bld) 3.6 % Normal 0-5 [facility] Comment on above: Performed By: #### L 550.23044, L200.64876 #### [facility] [address] [place] [address] Erythrocyte distribution width (RBC) [Ratio] 13.2 % Normal 11-14.5 [facility] Comment on above: Performed By: #### L 550.16426, L200.68772 #### [facility] [address] [place] [address] Hematocrit (Bld) [Volume fraction] 44.4 % Normal 35.0-47.0 [facility] Comment on above: Performed By: #### L 550.31200, L200.03106 #### [facility] [address] [place] [address] Hemoglobin (Bld) [Mass/Vol] 13.9 g/dL Normal 11.5-15.5 [facility] Comment on above: Performed By: #### L 550.04294, L200.45296 #### [facility] [address] [place] [address] IMMATR GRAN ABS 0.00 K/CU MM Normal Less than 2 [facility] Comment on above: Performed By: #### L 550.64405, L200.34890 #### [facility] [address] [place] [address] IMMATURE GRAN % 0.1 % Normal Less than 2 [facility] Comment on above: Performed By: #### L 550.62680, L200.21938 #### [facility] [address] [place] [address] LYMPH ABS 2.90 K/CU MM Normal 0.9-4.4 [facility] Comment on above: Performed By: #### L 550.02501, L200.32125 #### [facility] [address] [place] [address] Lymphocytes/100 WBC (Bld) 40.2 % High 20-40 [facility] Comment on above: Performed By: #### L 550.12554, L200.57248 #### [facility] [address] [place] [address] MCHC (RBC) [Mass/Vol] 31.3 g/dL Low 32.0-36.0 [facility] Comment on above: Performed By: #### L 550.94131, L200.60865 #### [facility] [address] [place] [address] MCV (RBC) [Entitic vol] 93.1 fL Normal 80.0-99.[address] [facility] Comment on above: Performed By: #### L 550.18291, L200.94738 #### [facility] [address] [place] [address] MONO ABS 0.60 K/CU MM Normal 0.1-1.1 [facility] Comment on above: Performed By: #### L 550.45966, L200.11533 #### [facility] [address] [place] [address] Monocytes/100 WBC (Bld) 8.8 % Normal 2-[address] [facility] Comment on above: Performed By: #### L 550.39422, L200.84638 #### [facility] [address] [place], [place] [address] NEUTROPHIL ABS 3.40 K/CU MM Normal 2.0-8.3 [facility] Comment on above: Performed By: #### L 550.87375, L200.40010 #### [facility] [address] [place] [address] Neutrophils/100 WBC (Bld) 46.7 % Normal 45-75 [facility] Comment on above: Performed By: #### L 550.20914, L200.50632 #### [facility] [address] [place] [address] Nucleated RBC/100 WBC (Bld) [Ratio] 0.0 % Normal Less than 1 [facility] Comment on above: Performed By: #### L 550.75274, L200.03029 #### [facility] [address] [place], [place] [address] Platelet mean volume (Bld) [Entitic vol] 10.7 fL Normal 9.4-12.4 [facility] Comment on above: Performed By: #### L 550.52534, L200.23818 #### [facility] [address] [place], [place] [address] PLT 336 K/CU MM Normal 150-450 [facility] Comment on above: Performed By: #### L 550.04689, L200.76220 #### [facility] [address] [place], [place] [address] RBC 4.77 M/CU MM Normal 3.90-5.30 [facility] Comment on above: Performed By: #### L 550.37835, L200.66575 #### [facility] [address] [place] [address] WBC 7.2 K/CUMM Normal 4.5-11.0 [facility] Comment on above: Performed By: #### L 550.25665, L200.71100 #### [facility] [address] [place] [address] CMPon 12-13-2020 Albumin [Mass/Vol] 3.9 g/dL Normal 3.2-5.0 [facility] Comment on above: Performed By: #### L 550.57489, L200.71502 #### [facility] [place] [address] Albumin/Globulin [Mass ratio] 0.9 {ratio} Normal 0.8-2.0 [facility] Comment on above: Performed By: #### L 550.87696, L200.76566 #### [facility] [address] [place] [address] ALK PHOS 92 U/L Normal 45-117 [facility] Comment on above: Performed By: #### L 550.97089, L200.92804 #### [facility] [address] [place] [address]67[address] ALT [Catalytic activity/Vol] 101 U/L High 13-61 [facility] Comment on above: Result Comment: RESU LTS MAY BE FALSELY DEPRESSED AFTER THE ADMINISTRATION OF SULFASALAZINE AND/OR SULFAPYRIDINE. Performed By: #### L 550.22826, L200.23610 #### [facility] [place] [address] Anion gap [Moles/Vol] 8 mmol/L Normal 5-16 [facility] Comment on above: Performed By: #### L 550.55935, L200.76254 #### [facility] [place] [address] AST [Catalytic activity/Vol] 119 U/L High 8-34 [facility] Comment on above: Result Comment: RESU LTS MAY BE FALSELY DEPRESSED AFTER THE ADMINISTRATION OF SULFASALAZINE AND/OR SULFAPYRIDINE. Performed By: #### L 550.46749, L200.07338 #### [facility] [place] [address] BILI TOTAL 0.80 MG/DL Normal 0.2-1.0 [facility] Comment on above: Performed By: #### L 550.11773, L200.24252 #### [facility] [address] [place] [address] Calcium [Mass/Vol] 10.7 mg/dL High 8.5-10.5 [facility] Comment on above: Result Comment: NOTE NEW NORMAL RANGE DUE TO REAGENT CHANGE Performed By: #### L 550.69008, L200.51460 #### [facility] [address] [place] [address] Chloride [Moles/Vol] 98 mmol/L Normal 98-107 [facility] Comment on above: Performed By: #### L 550.97173, L200.95766 #### [facility] [address] [place] [address] CO2 [Moles/Vol] 30.0 mmol/L Normal 21-32 [facility] Comment on above: Performed By: #### L 550.01888, L200.06189 #### [facility] [address] [place] [address] Creatinine [Mass/Vol] 0.40 mg/dL Low 0.510-0.950 [facility] Comment on above: Result Comment: Shanice ents receiving either N-Acetylcysteine (NAC) or Metamizole prior to venipuncture, may have falsely depressed results. Performed By: #### L 550.43748, L200.66819 #### [facility] [address] [place] [address] Globulin (S) [Mass/Vol] 4.4 g/dL High 2.2-4.[address] [facility] Comment on above: Performed By: #### L 550.54640, L200.96778 #### [facility] [place] [address] Glucose [Mass/Vol] 135 mg/dL High 70-100 [facility] Comment on above: Result Comment: 70-1 00- Normal Fasting; 100-125 Impaired Fasting; greater than 126 on more than one result- Diabetes. ADA guidelines. Results may be falsely elevated after the administration of Sulfapyridine. Results may be falsely depressed after the administration of Sulfasalazine. Performed By: #### L 550.35474, L200.85273 #### [facility] [address] [place] [address] Potassium [Moles/Vol] 3.6 mmol/L Normal 3.5-5.1 [facility] Comment on above: Result Comment: Slig ht Hemolysis, Result may be affected. Performed By: #### L 550.49049, L200.78269 #### [facility] [address] [place] [address] Protein [Mass/Vol] 8.3 g/dL Normal 6.0-8.5 [facility] Comment on above: Performed By: #### L 550.66600, L200.29990 #### [facility] [address] [place] [address] Sodium [Moles/Vol] 136 mmol/L Normal 136-145 [facility] Comment on above: Performed By: #### L 550.42330, L200.92098 #### [facility] [address] [place] [address] Urea nitrogen [Mass/Vol] 10 mg/dL Normal 7-26 [facility] Comment on above: Performed By: #### L 550.37190, L200.97357 #### [facility] [address] [place] [address] Urea nitrogen/Creatinine [Mass ratio] 25 mg/mg High 15-24 [facility] Comment on above: Performed By: #### L 550.16430, L200.84299 #### [facility] [address] [place] [address] GFR ESTon 12-13-2020 IF AMER Greater than 60 Normal [facility] Comment on above: Performed By: #### L 550.06549, L200.80283 #### [facility] [address] [place] [address] IF non-AFR AMER Greater than 60 Normal [facility] Comment on above: Performed By: #### L 550.95928, L200.52300 #### [facility] [address] [place] [address] LIPIDon 12-13-2020 CHOL 143 MG/dL Normal 0-199 [facility] Comment on above: Performed By: #### L 550.85522, L200.46304 #### [facility] [address] [place] [address] Cholesterol in HDL [Mass/Vol] 35 mg/dL Low GREATER THAN 40 [facility] Comment on above: Result Comment: Shanice ents receiving Metamizole prior to venipuncture, may have falsely depressed results. Performed By: #### L 550.66687, L200.19573 #### [facility] [address] [place] [address] Cholesterol in LDL [Mass/Vol] 83 mg/dL Normal [facility] Comment on above: Result Comment: ___C HOLESTEROL/HDL RATIO RISK___ CHD RISK = Total CHOL LDL HDL (CHOL/HDL) Recommended <200 <130 >40 <3.4 Borderline 200-239 130-159 3.4-4.99 High >240 >160 >5.0 Performed By: #### L 550.24885, L200.81079 #### [facility] [place] [address] Triglyceride [Mass/Vol] 127 mg/dL Normal 30-[address] [facility] Comment on above: Result Comment: Shanice ents receiving either N-Acetylcysteine (NAC) or Metamizole prior to venipuncture, may have falsely depressed results. Performed By: #### L 550.64250, L200.54100 #### [facility] [place] [address] TSHon 12-13-2020 TSH 1.437 UIU/ML Normal 0.358-3.740 [facility] Comment on above: Result Comment: 3rd generation ultra sensitive TSH Performed By: #### L 550.39177, L200.81790 #### [facility] [place] [address] Sunny 07-06-2020 Potassium [Moles/Vol] 3.6 mmol/L Normal 3.5-5.1 [facility] Comment on above: Result Comment: Slig ht Hemolysis, Result may be affected. Performed By: #### L 500.92320 #### [facility] [place] [address] CBC W/DIFFon 06-07-2020 BASO ABS 0.10 K/CU MM Normal 0-0.2 [facility] Comment on above: Performed By: #### L 200.41585 #### [facility] [address] [place] [address] Basophils/100 WBC (Bld) 1.0 % Normal 0-[address] [facility] Comment on above: Performed By: #### L 200.19712 #### [facility] [address] [place] [address] EOS ABS 0.20 K/CU MM Normal 0-0.5 [facility] Comment on above: Performed By: #### L 200.16673 #### [facility] [address] [place] [address] Eosinophils/100 WBC (Bld) 3.7 % Normal 0-5 [facility] Comment on above: Performed By: #### L 200.34843 #### [facility] [address] [place] [address] Erythrocyte distribution width (RBC) [Ratio] 13.7 % Normal 11-14.5 [facility] Comment on above: Performed By: #### L 200.21841 #### [facility] [address] [place], [place] [address] Hematocrit (Bld) [Volume fraction] 41.8 % Normal 35.0-47.0 [facility] Comment on above: Performed By: #### L 200.39706 #### [facility] [address] [place], [place] [address] Hemoglobin (Bld) [Mass/Vol] 13.2 g/dL Normal 11.5-15.5 [facility] Comment on above: Performed By: #### L 200.44714 #### [facility] [address] [place] [address] IMMATR GRAN ABS 0.00 K/CU MM Normal Less than 2 [facility] Comment on above: Performed By: #### L 200.41788 #### [facility] [address] [place] [address] IMMATURE GRAN % 0.3 % Normal Less than 2 [facility] Comment on above: Performed By: #### L 200.26858 #### [facility] [address] [place] [address] LYMPH ABS 2.60 K/CU MM Normal 0.9-4.4 [facility] Comment on above: Performed By: #### L 200.23922 #### [facility] [address] [place] [address] Lymphocytes/100 WBC (Bld) 43.8 % High 20-40 [facility] Comment on above: Performed By: #### L 200.56868 #### [facility] [address] [place] [address] MCHC (RBC) [Mass/Vol] 31.6 g/dL Low 32.0-36.0 [facility] Comment on above: Performed By: #### L 200.25703 #### [facility] [address] [place] [address] MCV (RBC) [Entitic vol] 95.7 fL Normal 80.0-99.[address] [facility] Comment on above: Performed By: #### L 200.18267 #### [facility] [address] [place] [address] MONO ABS 0.60 K/CU MM Normal 0.1-1.1 [facility] Comment on above: Performed By: #### L 200.79692 #### [facility] [address] [place] [address] Monocytes/100 WBC (Bld) 9.4 % Normal 2-[address] [facility] Comment on above: Performed By: #### L 200.40357 #### [facility] [address] [place] [address] NEUTROPHIL ABS 2.50 K/CU MM Normal 2.0-8.3 [facility] Comment on above: Performed By: #### L 200.45977 #### [facility] [address] [place] [address] Neutrophils/100 WBC (Bld) 41.8 % Low 45-75 [facility] Comment on above: Performed By: #### L 200.16768 #### [facility] [address] [place] [address] Nucleated RBC/100 WBC (Bld) [Ratio] 0.0 % Normal Less than 1 [facility] Comment on above: Performed By: #### L 200.11928 #### [facility] [address] [place] [address] Platelet mean volume (Bld) [Entitic vol] 10.4 fL Normal 9.4-12.4 [facility] Comment on above: Performed By: #### L 200.47798 #### [facility] [address] [place], [place] [address] PLT 336 K/CU MM Normal 150-450 [facility] Comment on above: Performed By: #### L 200.37492 #### [facility] [address] [place] [address] RBC 4.37 M/CU MM Normal 3.90-5.30 [facility] Comment on above: Performed By: #### L 200.82492 #### [facility] [address] [place] [address] WBC 6.0 K/CUMM Normal 4.5-11.0 [facility] Comment on above: Performed By: #### L 200.33065 #### [facility] [address] [place] [address] CMPon 06-07-2020 Albumin [Mass/Vol] 3.9 g/dL Normal 3.2-5.0 [facility] Comment on above: Performed By: #### L 500.12208, L500.76813, L500.97085, L500.48953 #### [facility] [address] [place] [address] Albumin/Globulin [Mass ratio] 1.0 {ratio} Normal 0.8-2.0 [facility] Comment on above: Performed By: #### L 500.15857, L500.60424, L500.15095, L500.77342 #### [facility] [address] [place] [address] ALK PHOS 78 U/L Normal 45-117 [facility] Comment on above: Performed By: #### L 500.65837, L500.20186, L500.06473, L500.43330 #### [facility] [address] [place], [place] [id number] ALT [Catalytic activity/Vol] 80 U/L High 13-61 [facility] Comment on above: Result Comment: RESU LTS MAY BE FALSELY DEPRESSED AFTER THE ADMINISTRATION OF SULFASALAZINE AND/OR SULFAPYRIDINE. Performed By: #### L 500.60803, L500.94527, L500.31097, L500.18581 #### [facility] [address] [place], [place] [id number] Anion gap [Moles/Vol] 7 mmol/L Normal 5-16 [facility] Comment on above: Performed By: #### L 500.99304, L500.57895, L500.86739, L500.87287 #### [facility] [place] [address] AST [Catalytic activity/Vol] 86 U/L High 8-34 [facility] Comment on above: Result Comment: RESU LTS MAY BE FALSELY DEPRESSED AFTER THE ADMINISTRATION OF SULFASALAZINE AND/OR SULFAPYRIDINE. Performed By: #### L 500.92837, L500.22789, L500.57757, L500.15512 #### [facility] [address] [place] [address] BILI TOTAL 0.80 MG/DL Normal 0.2-1.0 [facility] Comment on above: Performed By: #### L 500.93417, L500.64011, L500.39467, L500.94727 #### [facility] [address] [place] [address] Calcium [Mass/Vol] 10.8 mg/dL High 8.5-10.5 [facility] Comment on above: Result Comment: NOTE NEW NORMAL RANGE DUE TO REAGENT CHANGE Performed By: #### L 500.34209, L500.40309, L500.65107, L500.74212 #### [facility] [address] [place] [address] Chloride [Moles/Vol] 99 mmol/L Normal 98-107 [facility] Comment on above: Performed By: #### L 500.63630, L500.29756, L500.66471, L500.38738 #### [facility] [address] [place] [address] CO2 [Moles/Vol] 33.0 mmol/L High 21-32 [facility] Comment on above: Performed By: #### L 500.43257, L500.80249, L500.37404, L500.12380 #### [facility] [place] [address] Creatinine [Mass/Vol] 0.53 mg/dL Normal 0.510-0.950 [facility] Comment on above: Result Comment: Shanice ents receiving either N-Acetylcysteine (NAC) or Metamizole prior to venipuncture, may have falsely depressed results. Performed By: #### L 500.38950, L500.00442, L500.88652, L500.48024 #### [facility] [address] [place] [address] Globulin (S) [Mass/Vol] 4.0 g/dL Normal 2.2-4.[address] [facility] Comment on above: Performed By: #### L 500.58821, L500.48773, L500.40858, L500.22537 #### [facility] [address] [place] [address] Glucose [Mass/Vol] 118 mg/dL High 70-100 [facility] Comment on above: Result Comment: 70-1 00- Normal Fasting; 100-125 Impaired Fasting; greater than 126 on more than one result- Diabetes. ADA guidelines. Results may be falsely elevated after the administration of Sulfapyridine. Results may be falsely depressed after the administration of Sulfasalazine. Performed By: #### L 500.29754, L500.72174, L500.49592, L500.68889 #### [facility] [place] [address] Potassium [Moles/Vol] 3.4 mmol/L Low 3.5-5.1 [facility] Comment on above: Performed By: #### L 500.43207, L500.19989, L500.38437, L500.89922 #### [facility] [address] [place] [address] Protein [Mass/Vol] 7.9 g/dL Normal 6.0-8.5 [facility] Comment on above: Performed By: #### L 500.43196, L500.14081, L500.02794, L500.18097 #### [facility] [address] [place], [place] [address] Sodium [Moles/Vol] 140 mmol/L Normal 136-145 [facility] Comment on above: Performed By: #### L 500.26941, L500.75239, L500.54434, L500.92482 #### [facility] [address] [place] [address] Urea nitrogen [Mass/Vol] 10 mg/dL Normal 7-26 [facility] Comment on above: Performed By: #### L 500.26194, L500.32377, L500.27896, L500.38211 #### [facility] [address] [place] [address] Urea nitrogen/Creatinine [Mass ratio] 19 mg/mg Normal 15-24 [facility] Comment on above: Performed By: #### L 500.33533, L500.48763, L500.15806, L500.32996 #### [facility] [address] [place] [address] GFR ESTon 06-07-2020 IF AMER Greater than 60 Normal [facility] Comment on above: Performed By: #### L 500.27030, L500.32821, L500.62042, L500.28604 #### [facility] [address] [place] [address] IF non-AFR AMER Greater than 60 Normal [facility] Comment on above: Performed By: #### L 500.01092, L500.89319, L500.22837, L500.60375 #### [facility] [address] [place] [address] LIPIDon 06-07-2020 CHOL 140 MG/dL Normal 0-199 [facility] Comment on above: Performed By: #### L 500.51553, L500.84680, L500.34623, L500.32754 #### [facility] [address] [place] [address] Cholesterol in HDL [Mass/Vol] 35 mg/dL Low GREATER THAN 40 [facility] Comment on above: Result Comment: Shanice ents receiving Metamizole prior to venipuncture, may have falsely depressed results. Performed By: #### L 500.08339, L500.72292, L500.39025, L500.14422 #### [facility] [address] [place] [address] Cholesterol in LDL [Mass/Vol] 86 mg/dL Normal [facility] Comment on above: Result Comment: ___C HOLESTEROL/HDL RATIO RISK___ CHD RISK = Total CHOL LDL HDL (CHOL/HDL) Recommended <200 <130 >40 <3.4 Borderline 200-239 130-159 3.4-4.99 High >240 >160 >5.0 Performed By: #### L 500.14498, L500.80711, L500.48939, L500.30974 #### [facility] [address] [place] [address] Triglyceride [Mass/Vol] 94 mg/dL Normal 30-[address] [facility] Comment on above: Result Comment: Shanice ents receiving either N-Acetylcysteine (NAC) or Metamizole prior to venipuncture, may have falsely depressed results. Performed By: #### L 500.60103, L500.19754, L500.69454, L500.46731 #### [facility] [place] [address] TSHon 06-07-2020 TSH 0.806 UIU/ML Normal 0.358-3.740 [facility] Comment on above: Result Comment: 3rd generation ultra sensitive TSH Performed By: #### L 500.81840, L500.54909, L500.17021, L500.32398 #### [facility] [address] [place] [address] Vital Signs Date Time Vital Sign Value Performing Clinician Abisai rose 11-03-2024 07:35-0400 Body height 149.[address] Ion Williamson DO Work Phone: [facility] 11-03-2024 07:35-0400 Body weight 82.[address] Ion Williamson DO Work Phone: [facility] 09-24-2024 07:30-0400 Body weight 82.82 kg SAUL ARMIJO Work Phone: [facility] 09-22-2024 07:44-0400 Body height 149.9 cm Saul Armijo PROJECT MANAGEMENT PROFESSOR - [facility] Work Phone: [facility] 09-22-2024 07:44-0400 Body mass index (BMI) [Ratio] 37.08 kg/m2 Saul Armijo PROJECT MANAGEMENT PROFESSOR - [employer] TECHNICIAN ME[employer] Work Phone: [facility] 09-22-2024 07:44-0400 Body weight 83.28 kg Saul Armijo PROJECT MANAGEMENT PROFESSOR - [employer] TECHNICIAN MECH[employer]IC Work Phone: [facility] 09-22-2024 07:44-0400 Diastolic blood pressure 80 mm[Hg] Saul Armijo PROJECT MANAGEMENT PROFESSOR - [employer] TECHNICIAN MECHANIC Work Phone: [facility] 09-22-2024 07:44-0400 Heart rate 87 /min Saul Armijo PROJECT MANAGEMENT PROFESSOR - [employer]IES[employer] TECHNICIAN MECHANIC Work Phone: [facility] 09-22-2024 07:44-0400 Systolic blood pressure 128 mm[Hg] Saul Armijo PROJECT MANAGEMENT PROFESSOR - [employer] TECHNICIAN MECHANIC Work Phone: [facility] 07-23-2024 07:30-0400 Body height 149.[address] Ion Williamson DO Work Phone: [facility] 07-23-2024 07:30-0400 Body weight 82.[address] Ion Williamson DO Work Phone: [facility] 06-18-2024 11:24-0400 Body height 149.9 cm Saul Armijo PROJECT MANAGEMENT PROFESSOR - [employer] TECHNICIAN MECHANIC Work Phone: [facility] 06-18-2024 11:24-0400 Body mass index (BMI) [Ratio] 37.06 kg/m2 Saul Armijo PROJECT MANAGEMENT PROFESSOR - DIES[employer] TECHNICIAN MECHANIC Work Phone: [facility] 06-18-2024 11:24-0400 Body weight 83.23 kg Saul Armijo PROJECT MANAGEMENT PROFESSOR - [employer] TECHNICIAN MECHANIC Work Phone: [facility] 06-18-2024 11:24-0400 Diastolic blood pressure 69 mm[Hg] Saul Armijo PROJECT MANAGEMENT PROFESSOR - DIESEL TECHNICIAN MECHANIC Work Phone: [facility] [employer] 06-18-2024 11:24-0400 Heart rate 83 /min Saul Armijo PROJECT MANAGEMENT PROFESSOR - [employer] TECHNICIAN MECHANIC Work Phone: [facility] 06-18-2024 11:24-0400 Systolic blood pressure 111 mm[Hg] Saul Armijo PROJECT MANAGEMENT PROFESSOR - [employer] TECHNICIAN MECHANIC Work Phone: [facility] 06-04-2024 07:30-0400 Body height 149.[address] Ion Williamson DO Work Phone: [facility] 06-04-2024 07:30-0400 Body weight 83.[address] Ion Williamson DO Work Phone: [facility] 04-14-2024 07:30-0500 Body weight 82.[address] Ion Williamson DO Work Phone: [facility] 03-18-2024 10:13-0500 Body height 149.9 cm Saul Armijo PROJECT MANAGEMENT PROFESSOR - [employer] TECHNICIAN MECHANIC Work Phone: [facility] 03-18-2024 10:13-0500 Body mass index (BMI) [Ratio] 37.02 kg/m2 Saul Armijo PROJECT MANAGEMENT PROFESSOR - [employer] TECHNICIAN MECHANIC Work Phone: [facility] [employer] 03-18-2024 10:13-0500 Body weight 83.14 kg Saul Armijo PROJECT MANAGEMENT PROFESSOR - [employer] TECHNICIAN MECHANIC Work Phone: [facility] [employer] 03-18-2024 10:13-0500 Diastolic blood pressure 72 mm[Hg] Saul Armijo PROJECT MANAGEMENT PROFESSOR - [employer] TECHNICIAN MECHANIC Work Phone: [facility] [employer] 03-18-2024 10:13-0500 Heart rate 87 /min Saul Armijo PROJECT MANAGEMENT PROFESSOR - [employer] TECHNICIAN MECHANIC Work Phone: [facility] [employer] 03-18-2024 10:13-0500 Systolic blood pressure 113 mm[Hg] Saul Armijo PROJECT MANAGEMENT PROFESSOR - DIESEL TECHNICIAN MECHANIC Work Phone: [facility] 03-09-2024 08:00-0500 Body weight [address] Ion iWlliamson DO Work Phone: [facility] 01-14-2024 09:58-0500 Body height 149.9 cm Saul Armijo PROJECT MANAGEMENT PROFESSOR - DIESEL TECHNICIAN MECHANIC Work Phone: [employer] 01-14-2024 09:58-0500 Body mass index (BMI) [Ratio] 36.94 kg/m2 Saul Armijo PROJECT MANAGEMENT PROFESSOR - [employer]IESEL TECHNICIAN MECHANIC Work Phone: [employer] 01-14-2024 09:58-0500 Body weight 82.96 kg Saul Armijo PROJECT MANAGEMENT PROFESSOR - DIESEL TECHNICIAN MECHANIC Work Phone: [employer] 01-14-2024 09:58-0500 Diastolic blood pressure 66 mm[Hg] Saul Armijo PROJECT MANAGEMENT PROFESSOR - DIESEL TECHNICIAN MECHANIC Work Phone: [employer] 01-14-2024 09:58-0500 Heart rate 87 /min Saul Armijo PROJECT MANAGEMENT PROFESSOR - [employer]IES[employer] TECHNICIAN MECHANIC Work Phone: [employer] 01-14-2024 09:58-0500 Systolic blood pressure 132 mm[Hg] Saul Armijo PROJECT MANAGEMENT PROFESSOR - DIESEL TECHNICIAN MECHANIC Work Phone: [employer] 12-16-2023 08:07-0400 Diastolic blood pressure 78 mm[Hg] Marisol Emery PROJECT MANAGEMENT PROFESSOR - DIESEL TECHNICIAN MECHANIC Work Phone: [employer] 12-16-2023 08:07-0400 Heart rate 91 /min Marisol Emery PROJECT MANAGEMENT PROFESSOR - DIESEL TECHNICIAN MECHANIC Work Phone: [employer] 12-16-2023 08:07-0400 Systolic blood pressure 137 mm[Hg] Marisolra Emery PROJECT MANAGEMENT PROFESSOR - DIESEL TECHNICIAN MECHANIC Work Phone: [employer] 11-29-2023 05:45-0400 Body temperature 97.3 [degF] Robert Bruce MD Work Phone: [employer] 11-29-2023 05:45-0400 Diastolic blood pressure 59 mm[Hg] Robert Bruce MD Work Phone: [employer] 11-29-2023 05:45-0400 Heart rate 83 /min Robert Bruce MD Work Phone: [employer] 11-29-2023 05:45-0400 Respiratory rate 16 /min Robert Bruce MD Work Phone: [facility] 11-29-2023 05:45-0400 SaO2% (BldA) [Mass fraction] 97 % Robert Bruce MD Work Phone: [facility] 11-29-2023 05:45-0400 Systolic blood pressure 128 mm[Hg] Robert Bruce MD Work Phone: [facility] 2023 07:59-0400 Body height 149.9 cm Robert Bruce MD Work Phone: [facility] 2023 07:59-0400 Body mass index (BMI) [Ratio] 40.8 kg/m2 Robert Bruce MD Work Phone: [facility] 2023 07:59-0400 Body weight 91.63 kg Robert Bruce MD Work Phone: [facility] 2023 07:59-0400 Diastolic blood pressure 76 mm[Hg] Robert Bruce MD Work Phone: [facility] 2023 07:59-0400 Heart rate 101 /min Robert Bruce MD Work Phone: [facility] 2023 07:59-0400 Systolic blood pressure 119 mm[Hg] Robert Bruce MD Work Phone: [facility] 07-02-2023 07:30-0400 Body height 149.[address] Ion Williamson Work Phone: [facility] 07-02-2023 07:30-0400 Body weight 88.[address] Ion Williamson Work Phone: [facility] 06-25-2023 08:08-0400 Body height 149.[address] Ion Williamson Work Phone: [facility] 06-25-2023 08:08-0400 Body mass index (BMI) [Ratio] 38.7 kg/m2 Dr. Ion Williamson Work Phone: [facility] 06-25-2023 08:08-0400 Body weight 87.[address] Ion Williamson Work Phone: [facility] 06-25-2023 08:08-0400 Diastolic blood pressure 74 mm[Hg] Dr. Ion Williamson Work Phone: [facility] 06-25-2023 08:08-0400 Systolic blood pressure 136 mm[Hg] Dr. Ion Williamson Work Phone: [facility] 05-21-2023 07:30-0400 Body height 149.86 cm [facility] 05-21-2023 07:30-0400 Body weight 86.9 kg [facility] 04-03-2023 07:30-0500 Body height 149.86 cm [facility] 04-03-2023 07:30-0500 Body weight 87.95 kg [facility] 02-27-2023 08:30-0500 Body weight 87.45 kg [facility] 02-05-2023 07:30-0500 Body height 149.86 cm [facility] 02-05-2023 07:30-0500 Body weight 87.63 kg [facility] 01-04-2023 09:25-0400 Body height 149.9 cm Jazmin Zazueta MD Work Phone: [facility] 01-04-2023 09:25-0400 Body weight 86.27 kg Jazmin Zazueta MD Work Phone: [facility] 01-04-2023 09:25-0400 Diastolic blood pressure 83 mm[Hg] Jazmin Zazueta MD Work Phone: [facility] 01-04-2023 09:25-0400 Heart rate 77 /min Jazmin Zazueta MD Work Phone: [facility] 01-04-2023 09:25-0400 Systolic blood pressure 135 mm[Hg] Jazmin Zazueta MD Work Phone: [facility] 01-01-2023 07:30-0400 Body height 149.86 cm [facility] 01-01-2023 07:30-0400 Body weight 86.36 kg [facility] 11-09-2022 09:31-0400 Body height 149.9 cm Jazmin Zazueta MD Work Phone: [facility] 11-09-2022 09:31-0400 Body weight 87.09 kg Jazmin Zazueta MD Work Phone: [facility] 11-09-2022 09:31-0400 Diastolic blood pressure 80 mm[Hg] Jazmin Zazueta MD Work Phone: [facility] 11-09-2022 09:31-0400 Heart rate 76 /min Jazmin Zazueta MD Work Phone: [facility] 11-09-2022 09:31-0400 Systolic blood pressure 124 mm[Hg] Jazmin Zazueta MD Work Phone: [facility] 10-16-2022 08:20-0400 Body height 149.86 cm [facility] 10-16-2022 08:20-0400 Body weight 87.72 kg [facility] 08-14-2022 08:15-0400 Body height 149.86 cm [facility] 08-14-2022 08:15-0400 Body weight 86.9 kg [facility] 05-31-2022 10:44-0400 Body height 149.[address] Ion Williamson Work Phone: [facility] 05-31-2022 10:44-0400 Body weight 87.[address] Ion Williamson Work Phone: [facility] 05-03-2022 09:19-0500 Body height 149.[address] Ion Williamson Work Phone: [facility] 05-03-2022 09:19-0500 Body weight 88.[address] Ion Williamson Work Phone: [facility] 03-20-2022 10:34-0500 Body height 149.[address] Ion Williamson Work Phone: [facility] 03-20-2022 10:34-0500 Body weight 89.[address] Ion Williamson Work Phone: [facility] 03-10-2022 15:39-0500 Body height 149.[address] Ion Williamson Work Phone: [facility] Work Phone: 03-10-2022 15:39-0500 Body mass index (BMI) [Ratio] 38.1 kg/m2 Dr. Ion Williamson Work Phone: [facility] 03-10-2022 15:39-0500 Body temperature 97 [degF] Dr. Ion Williamson Work Phone: [facility] 03-10-2022 15:39-0500 Body weight 85.[address] Ion Williamson Work Phone: [facility] 03-10-2022 15:39-0500 Diastolic blood pressure 84 mm[Hg] Dr. Ion Williamson Work Phone: [facility] 03-10-2022 15:39-0500 Heart rate 106 /min Dr. Ion Williamson Work Phone: [facility] 03-10-2022 15:39-0500 Respiratory rate 18 /min Dr. Ion Williamson Work Phone: [facility] 03-10-2022 15:39-0500 SaO2% (BldA) [Mass fraction] 96 % Dr. Ion Williamson Work Phone: [facility] 03-10-2022 15:39-0500 Systolic blood pressure 142 mm[Hg] Dr. Ion Williamson Work Phone: [facility] 03-06-2022 06:18-0500 Body temperature 98.6 [degF] Dr. Ion Williamson Work Phone: [facility] 03-06-2022 06:18-0500 Diastolic blood pressure 90 mm[Hg] Dr. Ion Williamson Work Phone: [facility] 03-06-2022 06:18-0500 Heart rate 94 /min Dr. Ion Williamson Work Phone: [facility] 03-06-2022 06:18-0500 Respiratory rate 17 /min Dr. Ion Williamson Work Phone: [facility] 03-06-2022 06:18-0500 SaO2% (BldA) [Mass fraction] 96 % Dr. Ion Williamson Work Phone: [facility] 03-06-2022 06:18-0500 Systolic blood pressure 168 mm[Hg] Dr. Ion Williamson Work Phone: [facility] 02-05-2022 13:01-0500 Body temperature 98.2 [degF] Dr. Ion Williamson Work Phone: [facility] 02-05-2022 13:01-0500 Diastolic blood pressure 74 mm[Hg] Dr. Ion Williamson Work Phone: [facility] 02-05-2022 13:01-0500 Heart rate 83 /min Dr. Ion Williamson Work Phone: [facility] 02-05-2022 13:01-0500 Respiratory rate 14 /min Dr. Ion Williamson Work Phone: [facility] 02-05-2022 13:01-0500 SaO2% (BldA) [Mass fraction] 95 % Dr. Ion Williamson Work Phone: [facility] 02-05-2022 13:01-0500 Systolic blood pressure 132 mm[Hg] Dr. Ion Williamson Work Phone: [facility] 11-14-2021 11:12-0400 Body height 149.86 cm [facility] Work Phone: 11-14-2021 11:12-0400 Body weight 87.72 kg [facility] Work Phone: 10-19-2021 12:54-0400 Body temperature 97.3 [degF] Megan Regula DO Work Phone: [facility] 10-19-2021 12:54-0400 Diastolic blood pressure 78 mm[Hg] Megan Regula DO Work Phone: [facility] 10-19-2021 12:54-0400 Heart rate 91 /min Megan Regula DO Work Phone: [facility] 10-19-2021 12:54-0400 Respiratory rate 16 /min Megan Regula DO Work Phone: [facility] 10-19-2021 12:54-0400 SaO2% (BldA) [Mass fraction] 96 % Megan Regula DO Work Phone: [facility] 10-19-2021 12:54-0400 Systolic blood pressure 148 mm[Hg] Megan Regula DO Work Phone: [facility] 2021 10:13-0400 Body height 149.9 cm Jazmin Zazueta MD Work Phone: [facility] 2021 10:13-0400 Body weight 81.19 kg Jazmin Zazueta MD Work Phone: [facility] 2021 10:13-0400 Diastolic blood pressure 54 mm[Hg] Jazmin Zazueta MD Work Phone: [facility] 2021 10:13-0400 Heart rate 81 /min Jazmin Zazueta MD Work Phone: [facility] 2021 10:13-0400 Systolic blood pressure 134 mm[Hg] Jazmin Zazueta MD Work Phone: [facility] 09-12-2021 10:35-0400 Body temperature 96.8 [degF] Megan Regula DO Work Phone: [facility] 09-12-2021 10:35-0400 Diastolic blood pressure 83 mm[Hg] Megan Regula DO Work Phone: [facility] 09-12-2021 10:35-0400 Heart rate 88 /min Megan Regula DO Work Phone: [facility] 09-12-2021 10:35-0400 Systolic blood pressure 125 mm[Hg] Megan Regula DO Work Phone: [facility] 07-05-2021 10:31-0400 Body weight [address] Ion Williamson Work Phone: [facility] Work Phone: 06-15-2021 20:40-0400 Respiratory rate 18 /min Dr. Ion Williamson Work Phone: [facility] Work Phone: 06-15-2021 18:33-0400 Body height 149.[address] Ion Williamson Work Phone: [facility] Work Phone: 06-15-2021 18:33-0400 Body mass index (BMI) [Ratio] 38.3 kg/m2 Dr. Ion Williamson Work Phone: [facility] Work Phone: 06-15-2021 18:33-0400 Body temperature 95.6 [degF] Dr. Ion Williamson Work Phone: [facility] Work Phone: 06-15-2021 18:33-0400 Body weight 86.[address] Ion Williamson Work Phone: [facility] Work Phone: 06-15-2021 18:33-0400 Diastolic blood pressure 59 mm[Hg] Dr. Ion Williamson Work Phone: [facility] Work Phone: 06-15-2021 18:33-0400 Heart rate 84 /min Dr. Ion Williamson Work Phone: [facility] Work Phone: 06-15-2021 18:33-0400 SaO2% (BldA) [Mass fraction] 98 % Dr. Ion Williamson Work Phone: [facility] Work Phone: 06-15-2021 18:33-0400 Systolic blood pressure 127 mm[Hg] Dr. Ion Williamson Work Phone: [facility] Work Phone: 06-12-2021 10:24-0400 Body weight 86.[address] Ion Williamson Work Phone: [facility] Work Phone: 05-24-2021 09:55-0400 Body weight 85.[address] Ion Williamson Work Phone: [facility] Work Phone: 05-09-2021 08:16-0500 Body height 149.[address] Ion Williamson Work Phone: [facility] Work Phone: 04-19-2021 08:42-0500 Body weight 87.[address] Ion Williamson Work Phone: [facility] Work Phone: 04-16-2021 08:24-0500 Body mass index (BMI) [Ratio] 38.7 kg/m2 Dr. Ion Williamson Work Phone: [facility] Work Phone: 04-16-2021 08:24-0500 Body temperature 97.5 [degF] Dr. Ion Williamson Work Phone: [facility] Work Phone: 04-16-2021 08:24-0500 Body weight 87.[address] Ion Williamson Work Phone: [facility] Work Phone: 04-16-2021 08:24-0500 Diastolic blood pressure 75 mm[Hg] Dr. Ion Williamson Work Phone: [facility] Work Phone: 04-16-2021 08:24-0500 Heart rate 94 /min Dr. Ion Williamson Work Phone: [facility] Work Phone: 04-16-2021 08:24-0500 Respiratory rate 18 /min Dr. Ion Williamson Work Phone: [facility] Work Phone: 04-16-2021 08:24-0500 SaO2% (BldA) [Mass fraction] 95 % Dr. Ion Williamson Work Phone: [facility] Work Phone: 04-16-2021 08:24-0500 Systolic blood pressure 127 mm[Hg] Dr. Ion Williamson Work Phone: [facility] Work Phone: 03-15-2021 17:02-0500 Body weight 89.[address] Ion Williamson Work Phone: [facility] Work Phone: 02-07-2021 23:39-0500 Body weight 85.[address] Ion Williamson Work Phone: [facility] Work Phone: 02-07-2021 11:00-0500 Body height 149.9 cm Jazmin Zazueta MD Work Phone: [facility] 02-07-2021 11:00-0500 Body weight 81.19 kg Jazmin Zazueta MD Work Phone: [facility] 02-07-2021 11:00-0500 Diastolic blood pressure 84 mm[Hg] Jazmin Zazueta MD Work Phone: [facility] 02-07-2021 11:00-0500 Heart rate 90 /min Jazmin Zazueta MD Work Phone: [facility] 02-07-2021 11:00-0500 Systolic blood pressure 140 mm[Hg] Jazmin Zazueta MD Work Phone: [facility] Encounters Encounter Date Encounter Type Care Provider Facility Start: 01-05-2025 ambulatory Ion Hanley ty:[facility] Start: 11-03-2024 End: 11-08-2024 Discharged Recurring [...] Office outpatient visit 25 minutes Saul Armijo PROJECT MANAGEMENT PROFESSOR - DIESEL TECHNICIAN MECHANIC Work Phone: [facility] Comment on above: Type 2 diabetes shelley itus with hyperglycemia, with long-term current use of insulin (HCC) (Primary Dx); Hypertension associated with type 2 diabetes mellitus (HCC); Class 2 severe obesity with serious comorbidity and body mass index (BMI) of 37.0 to 37.9 in adult, unspecified obesity type (HCC) Start: 09-22-2024 End: 09-22-2024 ambulatory SAUL ARMIJO [facility] Start: 09-14-2024 End: 09-14-2024 Refill Saul Armijo PROJECT MANAGEMENT PROFESSOR - DIESEL TECHNICIAN MECHANIC Work Phone: [facility] Comment on above: Type 2 diabetes shelley itus with hyperglycemia, with long-term current use of insulin (HCC) Start: 09-10-2024 End: 09-10-2024 Refill Saul Armijo PROJECT MANAGEMENT PROFESSOR - DIESEL TECHNICIAN MECHANIC Work Phone: [facility] Comment on above: Type 2 diabetes shelley itus with hyperglycemia, with long-term current use of insulin (HCC) Start: 07-23-2024 End: 08-08-[address] Yenni Williamson DO -Nutritional Services Work Phone: Start: 07-23-2024 End: 08-08-[address] Ion Williamson DO Work Phone: [facility] Work Phone: Start: 06-18-2024 End: 06-26-2024 Telephone encounter Ion Williamson DO Work Phone: [facility] Internal Medicine [facility] Comment on above: Appointment Start: 06-18-2024 End: 06-18-2024 Office outpatient visit 25 minutes Saul Armijo PROJECT MANAGEMENT PROFESSOR - DIESEL TECHNICIAN MECHANIC Work Phone: [facility] Comment on above: Type 2 diabetes shelley itus with hyperglycemia, with long-term current use of insulin (HCC) (Primary Dx); Hypertension associated with type 2 diabetes mellitus (HCC); Class 2 severe obesity with serious comorbidity and body mass index (BMI) of 37.0 to 37.9 in adult, unspecified obesity type (HCC) Start: 06-18-2024 End: 06-18-2024 ambulatory SAUL ARMIJO [facility] Start: 06-11-2024 End: 06-11-[address] Ion Williamson DO Work Phone: [facility] Work Phone: Start: 06-11-2024 End: 06-11-[address] Ion Williamson DO Work Phone: -Laboratory, Specimen Work Phone: Start: 06-10-2024 End: 06-11-[address] Ion Williamson DO Work Phone: [facility] Work Phone: Start: 06-10-2024 End: 06-10-[address] Ion Williamson DO Work Phone: -Laboratory Work Phone: Start: 06-10-2024 End: 06-10-2024 ambulatory JOLENE ALLEN Facility:[facility] Start: 06-09-2024 End: 07-15-2024 Telephone encounter Saul Armijo PROJECT MANAGEMENT PROFESSOR - DIESEL TECHNICIAN MECHANIC Work Phone: [facility] Comment on above: Other (Questions & C larifications) Start: 06-04-2024 End: 06-08-[address] Yenni Williamson DO -Nutritional Services Work Phone: Start: 06-04-2024 End: 06-08-[address] Ion Williamson DO Work Phone: [facility] Work Phone: Start: 04-21-2024 End: 07-01-2024 Telephone encounter Saul Armijo PROJECT MANAGEMENT PROFESSOR - DIESEL TECHNICIAN MECHANIC Work Phone: [facility] Comment on above: Diabetes (Dexcom marissa dings ) Start: 04-14-2024 End: 05-08-[address] Yenni Williamson DO -Nutritional Services Work Phone: Start: 04-14-2024 End: 05-08-2024 ambulatory Ion [facility] Facility:[facility] Start: 03-18-2024 End: 03-18-2024 Office outpatient visit 25 minutes Saul Armijo PROJECT MANAGEMENT PROFESSOR - DIESEL TECHNICIAN MECHANIC Work Phone: [facility] Comment on above: Type 2 diabetes shelley itus with hyperglycemia, with long-term current use of insulin (HCC) (Primary Dx); Essential (primary) hypertension; Class 2 severe obesity with serious comorbidity and body mass index (BMI) of 37.0 to 37.9 in adult, unspecified obesity type (HCC) Start: 03-18-2024 End: 03-18-2024 ambulatory [facility] Start: 03-09-2024 End: 03-10-2024 ambulatory [facility] Facility:[facility] Start: 03-09-2024 End: 03-10-[address] Yenni Williamson DO -Nutritional Services Work Phone: Start: 03-09-2024 End: 03-09-[address] Yenni Williamson DO -Laboratory Work Phone: Start: 03-09-2024 End: 03-09-2024 ambulatory [facility] Facility:[facility] Start: 02-27-2024 End: 02-27-2024 Telephone encounter Saul Armijo PROJECT MANAGEMENT PROFESSOR - DIESEL TECHNICIAN MECHANIC Work Phone: [facility] Comment on above: Medication Problem Start: 02-20-2024 End: 02-21-2024 Telephone encounter Saul Armijo PROJECT MANAGEMENT PROFESSOR - DIESEL TECHNICIAN MECHANIC Work Phone: [facility] Comment on above: Other (Blood Glucose Log) Start: 02-03-2024 End: 02-03-2024 ambulatory [facility] Facility:[facility] Start: 01-31-2024 End: 01-31-2024 Telephone encounter Saul Armijo PROJECT MANAGEMENT PROFESSOR - DIESEL TECHNICIAN MECHANIC Work Phone: [facility] Comment on above: Other Start: 01-30-2024 End: 01-30-2024 Telephone encounter Saul Armijo PROJECT MANAGEMENT PROFESSOR - DIESEL TECHNICIAN MECHANIC Work Phone: [facility] Comment on above: Advice Only Start: 01-14-2024 End: 01-14-2024 Office outpatient visit 40 minutes Saul Armijo PROJECT MANAGEMENT PROFESSOR - DIESEL TECHNICIAN MECHANIC Work Phone: [facility] Comment on above: Type 2 diabetes shelley itus with hyperglycemia, with long-term current use of insulin (HCC) (Primary Dx); Essential (primary) hypertension; Obesity (BMI 30-39.9) Start: 01-14-2024 End: 01-14-2024 ambulatory SAUL ARMIJO [facility] Start: 01-14-2024 End: 01-14-2024 ambulatory ION WILLIAMSON [facility] Start: 01-02-2024 End: 01-03-2024 Telephone encounter Chung Miner MD Work Phone: [facility] Clinical Communication Comment on above: Other (Readings) Start: 01-02-2024 End: 01-09-2024 ambulatory [facility] Facility:[facility] Start: 12-17-2023 End: 12-17-2023 Telephone encounter Marisol Mcdowelldez PROJECT MANAGEMENT PROFESSOR - DIESEL TECHNICIAN MECHANIC Work Phone: [facility] Oncology - [place] Start: 12-16-2023 End: 12-16-2023 Postop follow up visit related to original px Marisol Emery PROJECT MANAGEMENT PROFESSOR - DIESEL TECHNICIAN MECHANIC Work Phone: [facility] Oncology [facility] Comment on above: Postoperative state (Primary Dx) Start: 12-16-2023 End: 12-16-2023 [facility] Start: 12-05-2023 End: 12-06-2023 Telephone encounter Robert Bruce MD Work Phone: [facility] Oncology [facility] Comment on above: Other (Bleeding ques tion ) Start: 12-03-2023 End: 01-17-2024 ambulatory Lissette Cassidy RN [facility] Clinical Communication Start: 12-03-2023 End: 01-17-2024 Patient encounter procedure Lissette Cassidy RN [facility] Clinical Communication Start: 12-02-2023 End: 12-02-2023 Telephone encounter Robert Bruce MD Work Phone: [facility] Oncology - [place] Start: 11-26-2023 End: 11-29-2023 Evaluation and management of inpatient Robert Bruce MD Work Phone: [facility] Medical Surgical Unit [facility] Comment on above: Intra-abdominal and pelvic swelling, mass and lump, unspecified site (Primary Dx); Acute postoperative pain Start: 11-19-2023 End: 11-19-2023 [facility] Start: 11-19-2023 End: 11-19-2023 Encounter for other preprocedural examination ROBERT BRUCE [facility] Start: 11-14-2023 End: 12-09-2023 ambulatory Ion Williamson Facility:[facility] Start: 10-21-2023 End: 10-21-2023 Telephone encounter Robert Bruce MD Work Phone: [facility] Gynecologic Oncology Start: 2023 End: 2023 Telephone encounter Robert Bruce MD Work Phone: [facility] Gynecologic Oncology Comment on above: Other (Surgery sched [facility]) Start: 2023 End: 2023 Office outpatient new 30 minutes Robert Bruce MD Work Phone: [facility] Gynecologic Oncology Comment on above: Pelvic mass in femal e (Primary Dx); Abnormal uterine bleeding (AUB); Pelvic pain in female Start: 2023 End: 2023 ambulatory Robert Bruce MD Work Phone: [facility] Gynecologic Oncology Start: 10-16-2023 End: 11-27-2023 Telephone encounter Robert Bruce MD Work Phone: [facility] Gynecologic Oncology [facility] Comment on above: Appointment Start: 07-02-2023 End: 07-09-[address] Ion Williamson Work Phone: [facility] Work Phone: Start: 07-02-2023 End: 07-09-[address] Ion Williamson Work Phone: [facility]-Diabetic Clinic Work Phone: Start: 06-25-2023 End: 06-25-[address] Ion Williamson Work Phone: [facility] Work Phone: Start: 06-25-2023 End: 06-25-[address] Ion Williamson Work Phone: [facility]-Laboratory, Specimen Work Phone: Start: 06-25-2023 End: 06-25-[address] Ion Williamson Work Phone: [facility] Work Phone: Start: 06-21-2023 Telephone encounter Vicky contreras APRN.CNP Work Phone: [facility] GENER[facility] Start: 06-14-2023 ambulatory ION WILLIAMSON Fackevin lity:[place] [facility] Start: 06-14-2023 End: 06-14-2023 Subsequent hospital visit by physician Stereo/Ultrasound Biopsy [place] [facility] Comment on above: Arrived Start: 05-21-2023 End: 06-09-2023 ambulatory [facility] Work Phone: Start: 05-21-2023 End: 06-09-2023 Discharged Recurring [facility]-Diabetic [facility] Work Phone: Start: 05-06-2023 End: 05-06-2023 ambulatory [facility] Work Phone: Start: 05-06-2023 End: 05-06-2023 Patient encounter procedure [facility]-Outpatient Breast Imaging Work Phone: Start: 04-03-2023 End: 04-10-2023 [facility] Start: 02-27-2023 End: 03-10-2023 [facility]: Start: 02-05-2023 End: 02-07-2023 ambulatory [facility] Work Phone: Start: 02-05-2023 End: 02-07-2023 Discharged Recurring [facility] Work Phone: Start: 02-04-2023 Telephone encounter Jazmin dia MD Work Phone: [facility] Comment on above: Results Start: 01-25-2023 ambulatory ION Barone lity:[facility] Start: 01-25-2023 End: 01-25-2023 Patient encounter procedure [facility]-Laboratory Work Phone: Start: 01-04-2023 End: 01-04-2023 ambulatory ION WILLIAMSON [facility] [facility] Start: 01-04-2023 End: 01-04-2023 Patient encounter procedure Jazmin Zazueta MD Work Phone: [facility] Comment on above: Unspecified lump in axillary tail of the left breast (Primary Dx); Dense breast tissue; Breast calcification, right; At high risk for breast cancer Start: 01-01-2023 End: 01-08-2023 ambulatory [facility] Work Phone: Start: 01-01-2023 End: 01-08-2023 Discharged Recurring [facility] Work Phone: Start: 11-09-2022 End: 11-09-2022 ambulatory ION WILLIAMSON [facility] Start: 11-09-2022 End: 11-09-2022 Patient encounter procedure Jazmin Zazueta MD Work Phone: [facility] Comment on above: Breast calcification , right (Primary Dx); Dense breast tissue; At high risk for breast cancer Start: 11-02-2022 ambulatory ION WILLIAMSON Fac lity:[facility] Start: 10-16-2022 End: 11-08-2022 ambulatory [facility] Work Phone: Start: 10-16-2022 End: 11-08-2022 Discharged Recurring [facility] Work Phone: Start: 08-14-2022 End: 09-07-2022 ambulatory [facility] Work Phone: Start: 08-14-2022 End: 09-07-2022 Discharged Recurring [facility] Work Phone: Start: 07-16-2022 End: 07-16-2022 ambulatory [facility] Work Phone: Start: 07-16-2022 End: 07-16-2022 Patient encounter procedure [facility]-Laboratory Start: 05-31-2022 End: 06-08-[address] Ion Williamson Work Phone: [facility] Work Phone: Start: 05-31-2022 End: 06-08-[address] Ion Williamson [facility] Start: 05-07-2022 End: 05-07-[address] Ion Williamson Work Phone: [facility] Work Phone: Start: 05-07-2022 End: 05-07-[address] Ion Williamson Work Phone: [facility]-Laboratory Start: 05-03-2022 End: 05-08-[address] Ion Williamson Work Phone: [facility] Work Phone: Start: 05-03-2022 End: 05-08-[address] Ion Williamson [facility] Start: 04-27-2022 Documentation procedure Mammog sreedhar Coordinator [facility] Start: 04-27-2022 Letter encounter Mammography Coordinator [facility] NOT [facility]ISTED Start: 04-27-2022 End: 04-27-2022 Subsequent hospital visit by physician Diagnostic Mammo [facility] 1 [facility] Comment on above: Abnormal mammogram [ R92.8] Start: 03-20-2022 End: 04-10-[address] Ion Williamson Work Phone: [facility] Work Phone: Start: 03-20-2022 End: 04-10-[address] Ion Williamson [facility] Start: 03-10-2022 End: 03-10-2022 Emergency department patient visit Dr. Ion Williamson Work Phone: [facility]-Emergency Department Start: 03-06-2022 End: 03-06-[address] [facility] Start: 02-05-2022 End: 02-05-[address] [facility] Start: 01-30-2022 End: 01-30-[address] Ion Williamson Work Phone: [facility] Work Phone: Start: 01-30-2022 End: 01-30-[address] Ion Williamson Work Phone: [facility]-Laboratory Start: 11-14-2021 End: 12-08-2021 ambulatory [facility] Work Phone: Start: 11-14-2021 End: 12-08-2021 [facility] Start: 10-19-2021 End: 10-19-2021 Office outpatient visit 15 minutes Megan Conklin DO Work Phone: [facility] Comment on above: Type 2 diabetes shelley itus with other specified complication, without long-term current use of insulin (HCC) (Primary Dx); Hypokalemia; Essential hypertension Start: 2021 Chart abstracting Megan fay DO Work Phone: [facility] Start: 2021 End: 2021 Patient encounter procedure Jazmin Zazueta MD Work Phone: [facility] Comment on above: Abnormal mammogram ( Primary Dx); Family history of malignant neoplasm of breast; At high risk for breast cancer Start: 10-16-2021 Patient encounter procedure [facility]-Laboratory Start: 09-14-2021 Telephone encounter Mili mirza [facility] Work Phone: [facility] Comment on above: Results (genetic kalia ting negative) Start: 09-12-2021 End: 09-12-2021 Office outpatient visit 15 minutes Megan Conklin DO Work Phone: [facility] Comment on above: Hemiplegic cerebral palsy (HCC) (Primary Dx); Paraplegia (HCC); Type 2 diabetes mellitus with other specified complication, without long-term current use of insulin (HCC) Start: 09-01-2021 End: 09-01-2021 Patient encounter procedure Mili Moncada [facility] Work Phone: [facility] [place] Comment on above: Family history of ma lignant neoplasm of breast (Primary Dx); At high risk for breast cancer Start: 09-01-2021 End: 09-01-2021 Subsequent hospital visit by physician Diagnostic Mammo [facility] 2 [facility] Comment on above: 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 Ion Williamson [facility] Start: 06-15-2021 End: 06-15-2021 Emergency department patient visit Dr. Ion Williamson Work Phone: [facility]-Emergency Department Start: 06-13-2021 End: 06-13-[address] Ion Williamson Work Phone: [facility]-Laboratory Start: 06-12-[address] Janny Williamson [facility] Start: 06-06-2021 End: 06-06-[address] Ion Williamson Work Phone: [facility]-Laboratory Start: 05-24-2021 End: 06-08-[address] Ion Williamson [facility] Start: 04-19-2021 End: 05-08-[address] Ion Williamson Work Phone: [facility] Start: 04-16-2021 End: 04-16-[address] Ion Williamson [facility] Start: 03-15-2021 End: 04-10-[address] Ion Williamson Work Phone: [facility] Start: 03-02-2021 Telephone encounter Jazmin dia MD Work Phone: [facility] Comment on above: Results Start: 02-28-2021 End: 02-28-2021 Subsequent hospital visit by physician Stereo/Ultrasound Biopsy [facility] Comment on above: Arrived Breast calcification , right [R92.1] Start: 02-23-2021 End: 03-10-[address] Ion Williamson Work Phone: [facility] Start: 02-08-2021 Orders Only Jazmin stanford MD Work Phone: [facility] Comment on above: Breast calcification , right (Primary Dx) Start: 02-07-2021 End: 02-07-2021 Subsequent hospital visit by physician Stereo/Ultrasound Biopsy [facility] Comment on above: Arrived Breast calcification , right [R92.1] Start: 02-07-2021 End: 02-07-2021 Patient encounter procedure Jazmin Zazueta MD Work Phone: [facility] Comment on above: Breast calcification , right (Primary Dx) Procedures Date Procedure Procedure Detail Performing Clinician Start: 09-22-2024 Hemoglobin glycosylated a1c Saul Armijo PROJECT MANAGEMENT PROFESSOR - DIESEL TECHNICIAN MECHANIC Work Phone: Start: 06-10-2024 Lipid 1996 panel - S stephon or Plasma Ion Williamson DO Work Phone: Start: 01-14-2024 Hemoglobin glycosylated a1c Saul Armijo PROJECT MANAGEMENT PROFESSOR - DIESEL TECHNICIAN MECHANIC Work Phone: Start: 11-29-2023 End: 11-29-2023 Glucose [...] above: Performed By: #### L [id number] #### Mailroom Messenger: VICKY GARCIA ([phone]) [facility] [address] [place] [address] Start: 06-14-2023 End: 06-14-2023 Digital breast tomosynthesis unilateral Vicky Davidson APRN.DIESEL TECHNICIAN MECHANIC Work Phone: Start: 05-06-2023 End: 05-06-2023 Bilateral mammography Start: 05-31-2022 Plain chest X-ray Dr. Yesenia Williamson Work Phone: Start: 04-27-2022 End: 04-27-2022 Digital breast tomosynthesis bilateral Jazmin Zazueta MD Work Phone: Start: 03-10-2022 Plain chest X-ray Dr. Yesenia Williamson Work Phone: Start: 10-16-2021 CMP EXTERNAL QAI [place] cinda K Regula DO Work Phone: Start: [...] 02-07-2021 Diagnostic mammograp hy computer-aided detcj uni Jazmin Zazueta MD Work Phone: Start: 12-22-2020 Mammography Jazmin sawyer MD Work Phone: Start: 07-25-2018 Colonoscopy Megan Win lopezmarisa SCOTT Work Phone: Plan of Treatment Date Care Activity Detail Author Start: 2040 RSV Immunization for Adults (1 - 1-dose 75+ series) RSV Immunization for Adults (1 - 1-dose 75+ series) [facility] Start: 07-25-2028 Colonoscopy COLONOSCOPY [facility] Start: 07-25-2028 COLORECTAL CANCER SCREENING COLORECTAL CANCER SCREENING [facility] Start: 07-25-2028 Screening for malign ant neoplasm of colon [facility] Start: 2025 RSV Immunization age d 60 or older (1 - 1-dose 60+ series) RSV Immunization aged 60 or older (1 - 1-dose 60+ series) [facility] Start: 09-22-2025 Hemoglobin A1c measurement Diabetes: Hemoglobin A1C [facility] Start: 06-10-2025 Hemoglobin A1c measurement Diabetes: Hemoglobin A1C [facility] Start: 06-10-2025 Lipid panel Lipid Panel [facility] Start: 04-26-2025 End: 04-26-2025 Patient encounter procedure 04/26/2025 8:00 AM EST Office Visit [facility] [address] [place] [address] Saul Armijo APRN - CNP [address] [place], [place] [id number] [facility] Start: 04-10-2025 Glaucoma screening Diabetes: R etinopathy Screening [facility] Start: 01-13-2025 Diabetic foot examination Diabetes: Foot Exam [facility] Start: 01-13-2025 Hemoglobin A1c measurement Diabetes: Hemoglobin A1C [facility] Start: 12-21-2024 End: 12-21-2024 Patient encounter procedure 12/21/2024 8:40 AM EDT Office Visit [facility] [address] [place] [id number] Chung Miner MD [address] [place] [address] [facility] Start: 12-11-2024 End: 09-22-2025 25-hydroxyvitamin D3 [...] type (HCC) Expected: 12/11/2024 (Approximate), Expires: 09/22/2025 [facility] Comment on above: Expected: 12/11/2024 (Approximate), Expires: 09/22/2025 Start: 12-11-2024 End: 09-22-2025 Comprehensive metabolic 1998 panel - Serum or Plasma Comprehensive metabolic panel Lab Routine Type 2 diabetes mellitus with hyperglycemia, with long-term current use of insulin (HCC) Expected: 12/11/2024 (Approximate), Expires: 09/22/2025 [facility] Comment on above: Expected: 12/11/2024 (Approximate), Expires: 09/22/2025 Start: 12-11-2024 End: 09-22-2025 Hemoglobin A1c measurement Hemoglobin A1c Lab Routine Type 2 diabetes mellitus with hyperglycemia, with long-term current use of insulin (HCC) Expected: 12/11/2024 (Approximate), Expires: 09/22/2025 [facility] Work Phone: Comment on above: Expected: 12/11/2024 (Approximate), Expires: 09/22/2025 Start: 12-11-2024 End: 09-22-2025 Lipid 1996 panel - Serum or Plasma Lipid panel Lab Routine Type 2 diabetes mellitus with hyperglycemia, with long-term current use of insulin (HCC) Expected: 12/11/2024 (Approximate), Expires: 09/22/2025 [facility] Comment on above: Expected: 12/11/2024 (Approximate), Expires: 09/22/2025 Start: 11-18-2024 Diabetes: Estimated Glomerular Filtration Rate for Kidney Health Diabetes: Estimated Glomerular Filtration Rate for Kidney Health [facility] Start: 11-18-2024 Hemoglobin A1c measurement Diabetes: Hemoglobin A1C [facility] Start: 11-09-2024 Influenza vaccination S [facility] Start: 09-22-2024 End: 09-22-2024 Patient encounter procedure 09/22/2024 8:00 AM EDT Office Visit [facility] [address] [place] [address] Saul Armijo PROJECT MANAGEMENT PROFESSOR - DIESEL TECHNICIAN MECHANIC [address] [place] [address] [facility] Start: 06-18-2024 End: 06-18-2024 Patient encounter procedure 06/18/2024 8:00 AM EDT Office Visit [facility] [address] [place] [address] Saul Armijo, PROJECT MANAGEMENT PROFESSOR - DIESEL TECHNICIAN MECHANIC [address] [place] [address] [facility] Start: 06-13-2024 Screening for malign ant neoplasm of breast Mammogram [facility] Start: 05-06-2024 Screening for malign ant neoplasm of breast Mammogram [facility] Start: 04-15-2024 End: 01-13-2025 Comprehensive metabolic 1998 panel - Serum or Plasma Comprehensive metabolic panel Lab Routine Type 2 diabetes mellitus with hyperglycemia, with long-term current use of insulin (HCC) Essential (primary) hypertension Expected: 04/15/2024 (Approximate), Expires: 01/13/2025 [facility] Comment on above: Expected: 04/15/2024 (Approximate), Expires: 01/13/2025 Start: 04-15-2024 End: 01-13-2025 Hemoglobin A1c measurement Hemoglobin A1c Lab Routine Type 2 diabetes mellitus with hyperglycemia, with long-term current use of insulin (HCC) Expected: 04/15/2024 (Approximate), Expires: 01/13/2025 [facility] Comment on above: Expected: 04/15/2024 (Approximate), Expires: 01/13/2025 Start: 04-15-2024 End: 01-13-2025 Lipid 1996 panel - Serum or Plasma Lipid panel Lab Routine Type 2 diabetes mellitus with hyperglycemia, with long-term current use of insulin (HCC) Expected: 04/15/2024 (Approximate), Expires: 01/13/2025 [facility] Work Phone: Comment on above: Expected: 04/15/2024 (Approximate), Expires: 01/13/2025 Start: 04-15-2024 End: 01-13-2025 Microalbumin/Creatinine panel in random Urine Microalbumin / creatinine urine ratio Lab Routine Type 2 diabetes mellitus with hyperglycemia, with long-term current use of insulin (HCC) Essential (primary) hypertension Expected: 04/15/2024 (Approximate), Expires: 01/13/2025 [facility] Comment on above: Expected: 04/15/2024 (Approximate), Expires: 01/13/2025 Start: 04-15-2024 End: 01-13-2025 Thyrotropin [Units/volume] in Serum or Plasma TSH Lab Routine Type 2 diabetes mellitus with hyperglycemia, with long-term current use of insulin (HCC) Obesity (BMI 30-39.9) Expected: 04/15/2024 (Approximate), Expires: 01/13/2025 [facility] Comment on above: Expected: 04/15/2024 (Approximate), Expires: 01/13/2025 Start: 04-15-2024 End: 01-13-2025 Thyroxine (T4) free [Mass/volume] in Serum or Plasma T4, free Lab Routine Type 2 diabetes mellitus with hyperglycemia, with long-term current use of insulin (HCC) Expected: 04/15/2024 (Approximate), Expires: 01/13/2025 [facility] Comment on above: Expected: 04/15/2024 (Approximate), Expires: 01/13/2025 Start: 03-18-2024 End: 03-18-2024 Patient encounter procedure 03/18/2024 10:30 AM EST Office Visit [facility] [address] [place] [phone] Saul Armijo APRN [facility] [address] [place] [address] [facility] Start: 01-14-2024 End: 01-14-2024 Clinical Support [facility] Start: 12-16-2023 End: 12-16-2023 Patient encounter procedure [facility] Gynecologic Oncology [facility] Start: 12-13-2023 End: 12-13-2023 Patient encounter procedure 12/13/2023 8:30 AM EDT Office Visit [facility] Gynecologic Oncology [address] [place] [id number] Robert Bruce MD [address] [place] [id number] [facility] Gynecologic Oncology Start: 11-26-2023 End: 11-26-2023 Admission to same day surgery center 11/26/2023 9:00 AM EDT - 11/26/2023 10:30 AM EDT Surgery [facility] MA[facility] OR [address] [place] [phone] Robert Bruce MD [address] [place] [address] TOTAL ABDOMINAL HYSTERECTOMY BILATERAL SALPINGO OOPHORECTOMY [96645 (CPT )] [facility] Comment on above: TOTAL ABDOMINAL HYST ERECTOMY BILATERAL SALPINGO OOPHORECTOMY [64226 (CPT )] Start: 11-26-2023 Subsequent hospital visit by physician 11/26/2023 9:00 AM EDT Hospital Encounter [facility] [address] [place] [phone] Robert Bruce MD [address] [place] [address] [facility] Start: 11-26-2023 End: 11-26-2023 Total abdominal hysterect w/wo rmvl tube ovary TOTAL ABDOMINAL HYSTERECTOMY Intra-abdominal and pelvic swelling, mass and lump, unspecified site 11/26/2023 9:00 AM EDT [facility] Operating [facility] Start: 11-19-2023 End: 11-19-2023 Admission to establishment 11/19/2023 9:30 AM EDT Pre-Admission Testing [facility] Pre-Admit Testing [address] [place] [address] [facility] Pre-[facility]mit [facility] Start: 11-10-2023 COVID-19 Vaccine ( season) COVID-19 Vaccine ( season) [facility] Start: 11-10-2023 Influenza vaccination Influenza Vacc ine (#1) [facility] Start: 04-27-2023 Mammography [facility] Start: 04-27-2023 Screening for malign ant neoplasm of breast Mammogram Screening [facility] Start: 03-11-2023 Behavioral Health Screening Behavioral Health Screening [facility] Start: 11-09-2022 Influenza vaccination INFLUENZA (#1) [facility] Start: 10-19-2022 ANNUAL PCP TEAM AXLE BEARING POLISHER KIRAN DISEASE VISIT ANNUAL PCP TEAM CHRONIC DISEASE VISIT [facility] Start: 10-16-2022 Hepatitis B surface antibody level LDL CHOLESTEROL [facility] Start: 09-12-2022 ANNUAL PCP TEAM AXLE BEARING POLISHER KIRAN DISEASE VISIT ANNUAL PCP TEAM CHRONIC DISEASE VISIT [facility] Start: 05-03-2022 Diabetes: Estimated Glomerular Filtration Rate for Kidney Health Diabetes: Estimated Glomerular Filtration Rate for Kidney Health [facility] Start: 05-03-2022 Hemoglobin A1c measurement Diabetes: Hemoglobin A1C [facility] Start: 04-18-2022 Hemoglobin A1c measurement HbA1C [facility] Start: 04-18-2022 Hemoglobin A1c/Hemoglobin.total in Blood HBA1C [facility] Start: 03-11-2022 DEPRESSION ASSESSMENT DEPRESSION ASS ESSMENT [facility] Start: 12-22-2021 Mammography MAMMOGRAM [facility] Start: 12-13-2021 Hepatitis B surface antibody level LDL CHOLESTEROL [facility] Start: 11-09-2021 Influenza vaccination INFLUENZA (#1) [facility] Start: 10-31-2021 Hemoglobin A1c/Hemoglobin.total in Blood HBA1C [facility] Start: 09-12-2021 End: 11-12-2021 CBC W Auto Differential panel - Blood CBC + DIFF Lab Routine Type 2 diabetes mellitus with other specified complication, without long-term current use of insulin (HCC) Expected: 09/12/2021, Expires: 11/12/2021 [facility] Work Phone: Comment on above: Expected: 09/12/2021 , Expires: 11/12/2021 Start: 09-12-2021 End: 11-12-2021 Comprehensive metabolic 2000 panel - Serum or Plasma COMP METABOLIC PANEL Lab Routine Type 2 diabetes mellitus with other specified complication, without long-term current use of insulin (HCC) Expected: 09/12/2021, Expires: 11/12/2021 [facility] Work Phone: Comment on above: Expected: 09/12/2021 , Expires: 11/12/2021 Start: 09-12-2021 End: 11-12-2021 Hemoglobin A1c in Blood HGB A1C Lab Routine Type 2 diabetes mellitus with other specified complication, without long-term current use of insulin (HCC) Expected: 09/12/2021, Expires: 11/12/2021 [facility] Work Phone: Comment on above: Expected: 09/12/2021 , Expires: 11/12/2021 Start: 09-12-2021 End: 11-12-2021 Lipid 1996 panel - Serum or Plasma LIPID PANEL BASIC Lab Routine Type 2 diabetes mellitus with other specified complication, without long-term current use of insulin (HCC) Expected: 09/12/2021, Expires: 11/12/2021 [facility] Work Phone: Comment on above: Expected: 09/12/2021 , Expires: 11/12/2021 Start: 05-16-2021 COVID-19 VACCINE (4 - Booster for Pfizer series) COVID-19 VACCINE (4 - Booster for Pfizer series) [facility] Start: 10-19-2015 SHINGRIX VACCINE (1 of 2) SHINGRIX VACCINE (1 of 2) [facility] Start: 10-19-2015 Zoster Vaccines (1 o f 2) Zoster Vaccines (1 of 2) [facility] Start: 2010 COLOGUARD (FIT-DNA) COLOGUARD (FIT-D NA) [facility] Start: 2010 Colonoscopy COLONOSCOPY [facility] Start: 2010 COLORECTAL CANCER SCREENING COLORECTAL CANCER SCREENING [facility] Start: [address] COLONOGRAPHY [facility] Start: 2010 FECAL OCCULT BLOOD FECAL OCCULT BLOO D [facility] Start: 2010 Screening for malign ant neoplasm of colon [facility] Start: 2010 SIGMOIDOSCOPY SIGMOIDOSCOPY [facility] Start: 2005 Mammography MAMMOGRAM [facility] Start: 10-19-1995 HPV TESTING HPV TESTING [facility] Start: 10-19-1995 Screening for malign ant neoplasm of cervix [facility] Start: 1986 PAP TESTING PAP TESTING [facility] Start: 1986 Screening for malign ant neoplasm of cervix [facility] Start: 1984 DTaP/Tdap/Td Vaccine s (1 - Tdap) DTaP/Tdap/Td Vaccines (1 - Tdap) [facility] Start: 1984 Hepatitis A Vaccines (1 of 2 - Risk 2-dose series) Hepatitis A Vaccines (1 of 2 - Risk 2-dose series) [facility] Start: 1984 HEPATITIS B (1 of 3 - Risk 3-dose series) HEPATITIS B (1 of 3 - Risk 3-dose series) [facility] Start: 1984 Hepatitis B Vaccine (1 of 3 - 19+ 3-dose series) Hepatitis B Vaccine (1 of 3 - 19+ 3-dose series) [facility] Start: 1984 Hepatitis B Vaccines (1 of 3 - 19+ 3-dose series) Hepatitis B Vaccines (1 of 3 - 19+ 3-dose series) [facility] Start: 1984 Pneumococcal Vaccine : 50+ Years (1 of 2 - PCV) Pneumococcal Vaccine: 50+ Years (1 of 2 - PCV) [facility] Start: 1984 Urine microalbumin profile [facility] Start: 10-19-1983 ANNUAL PCP TEAM AXLE BEARING POLISHER KIRAN DISEASE VISIT ANNUAL PCP TEAM CHRONIC DISEASE VISIT [facility] Start: 10-19-1983 BP CONTROLLED (<130/80) BP CONTROLLE D (<130/80) [facility] Start: 10-19-1983 Diabetes: Urine Albumin-Creatinine Ratio for Kidney Health Diabetes: Urine Albumin-Creatinine Ratio for Kidney Health [facility] Start: 10-19-1983 Hepatitis B surface antibody level LDL CHOLESTEROL [facility] Start: 10-19-1983 HEPATITIS C SCREENING HEPATITIS C [facility] Start: 10-19-1983 Hepatitis C screening Hepatitis C [facility] Start: 10-19-1983 HIV SCREENING HIV SCREENING [facility] Start: 10-19-1983 HIV screening HIV Screening [facility] Start: 1981 ONE PNEUMOVAX PRIOR TO AGE 65 ONE PNEUMOVAX PRIOR TO AGE 65 [facility] Start: 1977 Adult depression screening assessment DEPRESSION SCREENING [facility] Start: 10-19-1975 3 comp foot exam completed DIABETIC FOOT EXAM [facility] Start: 10-19-1975 Diabetic foot examination [facility] Start: 10-19-1975 Glaucoma screening [facility] Start: 10-19-1975 Hepatitis B screening URINE ALBUMIN:CREATININE RATIO [facility] Start: 10-19-1975 Hepatitis C antibody , confirmatory test DILATED RETINAL EXAM [facility] Start: 10-19-1975 Preventive dental service Diabetes: Dental Exam [facility] Start: 10-19-1971 PNEUMOCOCCAL (1 - PCV) PNEUMOCOCCAL (1 - PCV) [facility] Start: 10-19-1971 Pneumococcal vaccination [facility] Start: 10-19-1971 Pneumococcal Vaccine : Pediatrics (0 to 5 Years) and At-Risk Patients (6 to 64 Years) (1 of 2 - PCV) Pneumococcal Vaccine: Pediatrics (0 to 5 Years) and At-Risk Patients (6 to 64 Years) (1 of 2 - PCV) [facility] Start: 1970 Hemoglobin A1c/Hemoglobin.total in Blood HBA1C [facility] Start: 1966 MMR Vaccines (1 of 1 - Standard series) MMR Vaccines (1 of 1 - Standard series) [facility] Start: 1965 HEPATITIS B (1 of 3 - 3-dose series) HEPATITIS B (1 of 3 - 3-dose series) [facility] Start: 1965 Hepatitis B Vaccine (1 of 3 - 3-dose series) Hepatitis B Vaccine (1 of 3 - 3-dose series) [facility] Start: 1965 HIV screening HIV Screening [facility] Start: 1965 Lipid panel Lipid Panel [facility] Start: 1965 Screening for malign ant neoplasm of colon [facility] End: 03-10-2022 Bx breast w/device 1st lesion ultrasound guid US BIOPSY BREAST RT Radiology Routine Breast calcification, right 1 Occurrences starting 02/08/2021 until 03/10/2022 [facility] Work Phone: Comment on above: 1 Occurrences starti ng 02/08/2021 until 03/10/2022 End: 11-17-2022 Digital breast tomosynthesis bilateral GUILLERMINA DIAG W ROBERTO BILAT Radiology Routine Abnormal mammogram 1 Occurrences starting 2021 until 11/17/2022 [facility] Work Phone: Comment on above: 1 Occurrences starti ng 2021 until 11/17/2022 End: 12-08-2023 GUILLERMINA DIAG W ROBERTO BILATERAL GUILLERMINA DIAG W ROBERTO BILATERAL Radiology Routine Breast calcification, right 1 Occurrences starting 11/09/2022 until 12/08/2023 [facility] Work Phone: Comment on above: 1 Occurrences starti ng 11/09/2022 until 12/08/2023 Patient Education [facility] Work Phone: Patient referral [facility] Work Phone: SURGICAL PATHOLOGY SURGICAL PATH OLOGY Lab Routine 02/28/2021 9:33 AM EST [facility] Work Phone: Tissue exam [facility] Work Phone: Comment on above: Release Upon Orderin g for 1 Occurrences starting 11/26/2023, 1 completed End: 02-03-2024 US BREAST LTD LEFT US BREAST LTD LEFT Radiology Routine Unspecified lump in axillary tail of the left breast 1 Occurrences starting 01/04/2023 until 02/03/2024 [facility] Work Phone: Comment on above: 1 Occurrences starti ng 01/04/2023 until 02/03/2024 End: 03-05-2024 US BREAST LTD LEFT US BREAST LTD LEFT Radiology Routine Mass of axillary tail of left breast 1 Occurrences starting 02/04/2023 until 03/05/2024 [facility] Work Phone: Comment on above: 1 Occurrences starti ng 02/04/2023 until 03/05/2024 US Pelvis [facility] Immunizations Immunization Date Immunization Notes Care Provider Fa [facility] 12-17-2022 influenza virus vaccine, unspecified formulation Robert Bruce MD Work Phone: [facility] 11-28-2020 Seasonal, quadrivale nt, recombinant, injectable influenza vaccine, preservative free Megan Regula DO Work Phone: [facility] 11-23-2020 influenza nasal, unspecified formulation Megan Regula DO Work Phone: [facility] 11-30-2019 influenza nasal, unspecified formulation Megan Regula DO Work Phone: [facility] 11-19-2019 Seasonal, quadrivale nt, recombinant, injectable influenza vaccine, preservative free Megan Regula DO Work Phone: [facility] 11-21-2018 influenza, injectabl e, quadrivalent, preservative free Megan Regula DO Work Phone: [facility] 12-16-2017 influenza, injectabl e, quadrivalent, preservative free Megan Regula DO Work Phone: [facility] 05-19-2017 influenza, injectabl e, quadrivalent, preservative free [facility] 05-19-2017 influenza, seasonal, injectable Dr. Ion Williamson Work Phone: [facility] 05-19-2017 influenza, seasonal, injectable, preservative free Megan Regula DO Work Phone: [facility] Payers Date Payer Category Payer Self-pay [id number] 2022 [employer] Blue Shie ld [facility] Care - O [id number] 2020 Unknown [employer] BLUE CARD PPO OOS [id number] 2020-Present [phone] [address] [place] [address] PPO [id number] 2020 Unknown [id number] 2020 Unknown [id number] Unknown [id number] Unknown [id number] Unknown [id number] Unknown [id number] Unknown [id number] Unknown [id number] Unknown [id number] Unknown [id number] Unknown [id number] Unknown [id number] Unknown [id number] Unknown [id number] Unknown [id number] Social History Date Type Detail Facility Start: 02-07-2021 End: 09-26-2023 Tobacco smoking status NHIS Never smoked tobacco [facility] Start: 02-07-2021 End: 10-16-2023 Tobacco use and exposure Smokeless tobacco non-user [facility] Start: 1965 Sex Assigned At Not on file C [facility] Start: 08-22-2021 End: 2021 Exposure to SARS-CoV-2 (event) Not sure [facility] Start: 04-16-2021 End: 06-25-2023 Tobacco smoking status ILIS Unknown if ever smoked [facility] Start: 05-19-2017 None [facility] Start: 02-17-2015 Spouse/ Significant Oth er [facility] Start: 03-11-2015 Non-smoker [facility] Start: 1965 Sex Assigned At Female W [facility] Start: 09-12-2021 Alcohol intake Lifetime non-d aylin (finding) [facility] Start: 09-12-2021 History SDOH Alcohol Frequency 1 [facility] Start: 2021 End: 09-22-2024 Alcohol intake Current drinker of alcohol (finding) [facility] Start: 2021 History SDOH Alcohol Comment occationally [facility] Start: 10-19-2021 History SDOH Alcohol Comment occasionally [facility] Start: 11-09-2022 End: 09-22-2024 History of Social function [facility] Start: 11-09-2022 End: 09-22-2024 Tobacco use panel [facility] National Score (1-100), lower number is lower risk 72 [facility] Start: 10-16-2023 Alcohol Comment [facility] Start: 11-19-2023 Alcohol Comment 1-2 drinks per month [facility] Start: 10-16-2023 End: 06-16-2024 Sex Female (finding) [facility] Medical Equipment Procedure Code Equipment Code Equipment Origin al Text Equipment Identifier Dates [id number], [id number], [id number], [id number], [id number], [id number] Start: 08-04-2021 End: 09-22-2024 Comment on above: USE TO TEST BLOOD TORRES GAR TWICE DAILY Mental Status Date Assessment Result Facility 06-15-2021 Cognitive function Level Of Cons ciousness Awake;Alert;Follows Commands [facility] Work Phone: Clinical Notes 02-07-2021 to 09-22-2024 BARBARA Cohen CNP - 09/22/2024 8:00 AM EDTPatient InstructionsTelephone Encounter - Ofelia Buchanan MA - 09/14/2024 12:33 PM EDBARBARA Segura CNP - 06/18/2024 11:30 AM EDT Note Date & Type Note Facility 09-22-2024 History of Present illness Narrative Images from the original note were not included. [facility] ENDOCRINOLOGY [facility] [address] [place] [address] Dept: [phone] Dept Loc: [phone] Visit type: Established Patient Reason for Visit: [...] office to be requested. UACR results from [facility] [x] Scripts sent to pharmacy of choice. [...] schedule: /p Employment/Lifestyle Patterns/Schedule Alterations: Works at [employer]. 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 Dog Races Manager: ALISSON HTN: Endorses HLD: Denies- statin started [...] as needed for allergies. Continuous Glucose Sensor ([employer] G7 Sensor) misc Use every 10 days [...] MG tablet daily. Lancets (OneTouch Delica Plus [id number]) misc 1 each as needed for CGM [...] TSH 1.36 06/10/2024 No results found for: [id number] Electronically signed by BARBARA Martinez CNP Portions of the information within this encounter were entered using an electronic dictation system. Best attempts were made to edit/proofread the information prior to note completion. Despite the review of information, some errors may remain. If there are questions related to the information contained within the note please contact the signing physician directly. documented in this encounter [facility] 09-22-2024 Instructions BARBARA Cohen CNP - 09/22/2024 [...] shoaib, please send me a message via [employer] or call [phone] so we can address your needs *Please [...] plan of care. documented in this encounter [facility] 09-14-2024 Telephone encounter Note Left voicemail relaying the message from Saul. [facility] 09-14-2024 Miscellaneous Notes Left voicemail relaying the message from Saul. 1 year supply sent 4 days ago Please make pt aware she needs to request from pharmacy not our office documented in this encounter [facility] 09-14-2024 Telephone encounter Note 1 year supply sent 4 days ago Please make pt aware she needs to request from pharmacy not our office [facility] 06-18-2024 History of Present illness Narrative Images from the original note were not included. 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 Dog Races Manager: ALISSON HTN: Endorses HLD: Denies- statin started [...] 100 each 11 Lancets (OneTouch Delica Plus [id number]) misc 1 each as needed for CGM [...] TSH 1.36 06/10/2024 No results found for: [id number] Electronically signed by BARBARA Martinez CNP Portions [...] directly. Result entered documented in this encounter [facility] 06-18-2024 Instructions BARBARA Cohen CNP [...] shoaib, please send me a message via [employer] or call [phone] so we can address your needs *Please [...] plan of care. documented in this encounter [facility] 06-18-2024 Miscellaneous Notes Addended by: SAUL ARMIJO on: 06/18/2024 12:10 PM Modules accepted: Orders documented in this encounter [facility] 06-18-2024 Note Addended by: SAUL ARMIJO on: 06/18/2024 12:10 PM Modules accepted: Orders [facility] 06-18-2024 Note Addended by: SAUL ARMIJO on: 06/18/2024 12:10 PM Modules accepted: Orders [facility] 06-18-2024 Note Addended by: SAUL ARMIJO on: 06/18/2024 12:10 PM Modules accepted: Orders [facility] 06-18-2024 Telephone encounter Note Pt arrived late to appt will still need assessed please [facility] 06-18-2024 Miscellaneous Notes Pt arrived late to appt will still need assessed please documented in this encounter [facility] 06-18-2024 Telephone encounter Note Name of Caller: Taylor Contact Reason for Appointment: Pt has an appt at 8 am and is stuck in traffic. Pt stated she should be there right around 8. Please advise Office Name: endo Medication Refills need, if any: na Medication Name: na [facility] 06-18-2024 Miscellaneous Notes Name of Caller: Taylor Contact Reason for Appointment: Pt has an appt at 8 am and is stuck in traffic. Pt stated she should be there right around 8. Please advise Office Name: endo Medication Refills need, if any: na Medication Name: na documented in this encounter [facility] 06-10-2024 Telephone encounter Note Per Saul's note, patient is due for fasting labs prior to next visit. I do not see where she is to hold her insulin. I do see where she is supposed to hold any ofex-spp-lwvkxqb supplements she may be on 5 days prior to her labs as this can lead to some of the results. [facility] [employer] Work Phone: 06-10-2024 Miscellaneous Notes Per Saul's note, patient is due for fasting labs prior to next visit. I do not see where she is to hold her insulin. I do see where she is supposed to hold any xwnm-cnh-ywycpri supplements she may be on 5 days prior to her labs as this can lead to some of the results. Name of caller: Taylor Contact phone number: [phone] Relationship to Patient: patient Provider: Demetrice Armijo [...] their call: Yes documented in this encounter [facility] [employer] 06-09-2024 Telephone encounter Note Name of caller: Taylor Contact phone number: [phone] Relationship to Patient: patient Provider: Demetrice Armijo [...] business hours to return their call: Yes [facility] 05-07-2024 Telephone encounter Note Dexcom downloaded to federal mediation commissioner [facility] [employer] 05-07-2024 Miscellaneous Notes Dexcom downloaded to federal mediation commissioner Please download dexcom Patient called to request another download from her Dexcom. Please advise. Called and released msg to pt. Basaglar to 16 units Message/call DD 2 weeks Dexcom downloaded and saved in [employer] Please download dexcom and sent it to provider Name of caller: Taylor Contact phone number: [phone] Relationship to Patient: patient Provider: BARBARA Cohen CNP Practice: [facility] Chief Complaint/Reason for Call: Taylor is requesting a call back to discuss her most recent Dexcom report. Please contact Taylor and advise. Best time of day caller can be reached: Any Patient advised that office/PCP has 24-48 business hours to return their call: Yes documented in this encounter [facility] [employer] 05-07-2024 Telephone encounter Note Please download dexcom [facility] [employer] 05-07-2024 Telephone encounter Note Patient called to request another download from her Dexcom. Please advise. [facility] 04-23-2024 Telephone encounter Note Called and released msg to pt. [facility] 04-23-2024 Telephone encounter Note Basaglar to 16 units Message/call DD 2 weeks [facility] 04-22-2024 Telephone encounter Note Dexcom downloaded and saved in [employer] [facility] 04-22-2024 Telephone encounter Note Please download dexcom and sent it to provider [facility] 04-21-2024 Telephone encounter Note Name of caller: Taylor Contact phone number: [phone] Relationship to Patient: patient Provider: BARBARA Cohen CNP Practice: [facility] Chief Complaint/Reason for Call: Taylor is requesting a call back to discuss her most recent Dexcom report. Please contact Taylor and advise. Best time of day caller can be reached: Any Patient advised that office/PCP has 24-48 business hours to return their call: Yes [facility] 03-18-2024 History of Present illness Narrative Images from the original note were not included. [facility] [address] [place] [address] Dept: [phone] Dept Loc: [phone] Visit type: Established Patient Reason for Visit: [...] higher protein Employment/Lifestyle Patterns/Schedule Alterations: Works at [employer]. 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 Dog Races Manager: NA HTN: Endorses HLD: Denies Renal: Denies [...] by mouth as needed. Continuous Glucose Sensor ([employer] G7 Sensor) misc Use every 10 days [...] 100 each 11 Lancets (OneTouch Delica Plus [id number]) misc 1 each as needed for CGM [...] found for: TSH No results found for: [id number] Electronically signed by BARBARA Martinez CNP Portions of the information within this encounter were entered using an electronic dictation system. Best attempts were made to edit/proofread the information prior to note completion. Despite the review of information, some errors may remain. If there are questions related to the information contained within the note please contact the signing physician directly. documented in this encounter [facility] 03-18-2024 Instructions BARBARA Cohen CNP [...] shoaib, please send me a message via [employer] or call [phone] so we can address your needs *Please [...] plan of care. documented in this encounter [facility] 02-27-2024 Telephone encounter Note Message released to patient as written. Patient's further questions if applicable: N/A Were all questions from office addressed or relayed to the patient from encounter: Yes [facility] 02-27-2024 Miscellaneous Notes Message released [...] Name of caller: Taylor Contact phone number: [phone] Relationship to Patient: patient Provider: Aleksander FOFANA [...] their call: Yes documented in this encounter [facility] [employer] 02-27-2024 Telephone encounter Note LVM for patient to call the office. if patient return call please relay message per provider. [facility] 02-27-2024 Telephone encounter Note Images from the original note were not included. No significant hyperglycemia on DD Recommend again she follow orders given then message for DD in 1-2 weeks If trends >250 notify sooner but none seen on 1 week adjusted download [facility] 02-27-2024 Telephone encounter Note Name of caller: Taylor Contact phone number: [phone] Relationship to Patient: patient Provider: Aleksander FOFANA [...] business hours to return their call: Yes [facility] 02-21-2024 Telephone encounter Note Patient informed as noted No further questions. [facility] 02-21-2024 Miscellaneous Notes Patient informed as noted No further questions. Reviewed Time in range at goal Stop Novolog Decrease Basagalr to 20 units Remind about 1/8 appt; will pull DD again at that time Can notify sooner if needs review Dexcom DL in media Name of caller: Taylor Contact phone number: [phone] Relationship to Patient: Patient Provider: JANNY Armijo Practice: endo Chief Complaint/Reason for Call: Patient is requesting her blood glucose log be pulled. She also stated that she re-calibrated her dexcom. Please advise. Best time of day caller can be reached: Any Patient advised that office/PCP has 24-48 business hours to return their call: Yes documented in this encounter [facility] 02-21-2024 Telephone encounter Note Reviewed Time in range at goal Stop Novolog Decrease Basagalr to 20 units Remind about 1/8 appt; will pull DD again at that time Can notify sooner if needs review [facility] 02-21-2024 Telephone encounter Note Dexcom DL in media [facility] 02-20-2024 Telephone encounter Note Name of caller: Taylor Contact phone number: [phone] Relationship to Patient: Patient Provider: JANNY Armijo Practice: [facility] Chief Complaint/Reason for Call: Patient is requesting her blood glucose log be pulled. She also stated that she re-calibrated her dexcom. Please advise. Best time of day caller can be reached: Any Patient advised that office/PCP has 24-48 business hours to return their call: Yes [facility] 01-31-2024 Telephone encounter Note Rec'd PA request for Ozempic, called pharmacy, they stated it went through no charge but the Novolog cannot be filled until February 15, 2024 [facility] 01-31-2024 Miscellaneous Notes Rec'd PA request for Ozempic, called pharmacy, they stated it went through no charge but the Novolog cannot be filled until February 15, 2024 documented in this encounter [facility] 01-30-2024 Telephone encounter Note done [facility] 01-30-2024 Miscellaneous Notes done Pharmacy [...] Name of caller: Taylor Contact phone number: [phone] Relationship to Patient: patient Provider: JANNY Armijo Practice: Endo Chief Complaint/Reason for Call: Patient calling to advise that it is time to pull her glucose log report. Please advise, Best time of day caller can be reached: Any Patient advised that office/PCP has 24-48 business hours to return their call: Yes documented in this encounter [facility] 01-30-2024 Telephone encounter Note Pharmacy called and stated that Ozempic prescription should be corrected to a 4mg pen. Please advise. [facility] 01-30-2024 Telephone encounter Note SHERI reviewed Trends improved greatly Increase Ozempic to 1mg weekly; once ozempic is increased can cut back Novolog to 6 units with meals; continue Basaglar Message/call again in 2 weeks to consider further decreasing insulin [facility] 01-30-2024 Telephone encounter Note Name of caller: Taylor Contact phone number: [phone] Relationship to Patient: patient Provider: JANNY Armijo Practice: Endo Chief Complaint/Reason for Call: Patient calling to advise that it is time to pull her glucose log report. Please advise, Best time of day caller can be reached: Any Patient advised that office/PCP has 24-48 business hours to return their call: Yes [facility] 01-14-2024 History of Present illness Narrative Images from the original note were not included. [facility] [address] [place] [address] Dept: Dept Loc: [phone] Visit type: Established Patient Reason for Visit: [...] daily, Normal - Lancets (OneTouch Delica Plus [id number]) misc; 1 each as needed for CGM [...] of juice Employment/Lifestyle Patterns/Schedule Alterations: Works at [employer] History of Type 2 Diabetes Age at [...] Eye) Neuropathy: Denies - Last DMFE: 01/14/2024. Dog Races Manager: ALISSON HTN: Endorses HLD: Denies Renal: Denies [...] 4 times daily 100 each 11 Lancets ([employer] HoldingTouch Delica Plus [id number]) misc USE TO CHECK SUGAR ONCE DAILY [...] found for: TSH No results found for: [id number] Electronically signed by BARBARA Martinez CNP Portions of the information within this encounter were entered using an electronic dictation system. Best attempts were made to edit/proofread the information prior to note completion. Despite the review of information, some errors may remain. If there are questions related to the information contained within the note please contact the signing physician directly. documented in this encounter [facility] 01-14-2024 Instructions BARBARA Cohen CNP [...] shoaib, please send me a message via [employer] or call [phone] so we can address your needs *Please [...] have a seizure documented in this encounter [facility] 01-14-2024 Miscellaneous Notes Addended by: SAUL ARMIJO on: 01/14/2024 03:45 PM Modules accepted: Orders documented in this encounter [facility] 01-14-2024 Note Addended by: SAUL ARMIJO on: 01/14/2024 03:45 PM Modules accepted: Orders [facility] 01-14-2024 Note Addended by: SAUL ARMIJO on: 01/14/2024 03:45 PM Modules accepted: Orders [facility] 01-14-2024 Note Addended by: SAUL ARMIJO on: 01/14/2024 03:45 PM Modules accepted: Orders [facility] 01-03-2024 Telephone encounter Note Spoke to patient and caregiver. Gave new orders as written. Caregiver wrote down new orders for patient. [facility] 01-03-2024 Miscellaneous Notes Spoke to [...] Name of caller: Taylor Contact phone number: [phone] Relationship to Patient: patient Provider: Dr. Miner Practice: Endo Chief Complaint/Reason for Call: Pt states she is calling to let the office to download her recent readings. Please advise. Best time of day caller can be reached: any Patient advised that office/PCP has 24-48 business hours to return their call: N/A documented in this encounter [facility] 01-03-2024 Note Addended by: SAUL ARMIJO on: 01/03/2024 10:53 AM Modules accepted: Orders [facility] 01-03-2024 Note Addended by: SAUL ARMIJO on: 01/03/2024 10:53 AM Modules accepted: Orders [facility] 01-03-2024 Telephone encounter Note Increase Ozempic as planned Increase Basaglar to 24 daily Start Humalog 8 with meals Message for DD 2 weeks T [facility] 01-03-2024 Telephone encounter Note Spoke to patient. Is taking the Basaglar 20 units in am and is taking the 0.25 Ozempic. Will start the 0.5 dose next week. Advised if any changes to meds will contact patient. Patient agreed will be at appt 01/13. [facility] 01-02-2024 Telephone encounter Note Very poor control Insulin dosages/meds need confirmed as I have never seen the pt Per November IP note was to optimize ozempic 0.25-->0.5 and start Basaglar Please confirm timing/dosages Thank you [facility] 01-02-2024 Telephone encounter Note Name of caller: Taylor Contact phone number: [phone] Relationship to Patient: patient Provider: Dr. Miner Practice: Endo Chief Complaint/Reason for Call: Pt states she is calling to let the office to download her recent readings. Please advise. Best time of day caller can be reached: any Patient advised that office/PCP has 24-48 business hours to return their call: N/A [facility] 12-17-2023 Telephone encounter Note Pt called back with can get vaccines. Pt verbalized understanding. [facility] 12-17-2023 Miscellaneous Notes Pt called back with can get vaccines. Pt verbalized understanding. Patient would like to know when she could get her flu shot and covid vaccine in relation to her surgery. Patient also requested for her FMLA paperwork to be completed by the . With questions about either, please contact patient when able, thank you documented in this encounter [facility] 12-17-2023 Telephone encounter Note Patient would like to know when she could get her flu shot and covid vaccine in relation to her surgery. Patient also requested for her FMLA paperwork to be completed by the . With questions about either, please contact patient when able, thank you [facility] 12-16-2023 History of Present illness [...] 100 each 11 Lancets (OneTouch Delica Plus [id number]) misc 1 each as needed for CGM [...] 6 weeks postoperatively - Follow-up with primary [facility] PATTERN[employer] for annual well woman exams. I explained diagnosis and treatment plan; patient expressed understanding and was in agreement with the plan. BARBARA Eisenberg CNP documented in this encounter [facility] 12-05-2023 Telephone encounter Note Patient states she is having some bleeding not filling a pad this has been going on for a few days just wanted you to know. I called patient back and let her know spotting is normal if it is a pad an hour to please call the office at [phone] to let us know. [facility] 12-05-2023 Miscellaneous Notes Patient states she is having some bleeding not filling a pad this has been going on for a few days just wanted you to know. I called patient back and let her know spotting is normal if it is a pad an hour to please call the office at [phone] to let us know. documented in this encounter [facility] 12-03-2023 Telephone encounter Note S: [...] or question Protocols used: Post-Op Symptoms and Vygqybbew-WUOGC-XM [facility] 12-03-2023 Miscellaneous Notes S: Patient [...] or question Protocols used: Post-Op Symptoms and Zrrbeafws-CMOSG-PW documented in this encounter [facility] [employer] 12-03-2023 Telephone encounter Note Lvm informing patient of the move from Dr. Astorga's schedule to [facility]. Same date and time. [facility] 12-03-2023 Miscellaneous Notes Lvm informing patient of the move from Dr. Astorga's schedule to [facility]. Same date and time. ----- Message from Robert Bruce MD sent at 12/02/2023 6:23 AM EDT ----- Please call and let her know pathology was completely benign. She also wanted to know the weight so L it was 2769 g. Please see for postop. documented in this encounter [facility] 12-02-2023 Telephone encounter Note ----- Message from Robert Bruce MD sent at 12/02/2023 6:23 AM EDT ----- Please call and let her know pathology was completely benign. She also wanted to know the weight so L it was 2769 g. Please see for postop. [facility] [employer] Work Phone: 12-02-2023 Miscellaneous Notes ----- Message from Robert Bruce MD sent at 12/02/2023 6:23 AM EDT ----- Please call and let her know pathology was completely benign. She also wanted to know the weight so L it was 2769 g. Please see for postop. documented in this encounter [facility] 12-02-2023 Telephone encounter Note Faxed to Dr. Vanessa at [phone] via [employer]. Confirmation scanned within media [facility] 12-02-2023 Telephone encounter Note ----- Message from Robert Bruce MD sent at 12/02/2023 6:23 AM EDT ----- z fax to Dr Ana Rosa Vanessa in [place] ----- Message ----- From: TEEspy User[employer] Sent: 11/27/2023 12:50 PM EDT To: Robert Bruce MD [facility] 12-02-2023 Miscellaneous Notes Faxed to Dr. Vanessa at [phone] via [employer]. Confirmation scanned within media ----- Message from Robert Bruce MD sent at 12/02/2023 6:23 AM EDT ----- Plz fax to Dr Ana Rosa Vanessa in [place] ----- Message ----- From: TEEspy User[employer] Sent: 11/27/2023 12:50 PM EDT To: Robert Bruce MD documented in this encounter [facility] 11-29-2023 Note Formatting of this n ote might be different from the original. Pt to be discharged to home with spouse today. PT recommending home health but pt declined per Jolene SABA. Pt denies any needs from tcc. [facility] 11-29-2023 Note Formatting of this n ote might be different from the original. Pt to be discharged to home with spouse today. PT recommending home health but pt declined per Jolene SABA. Pt denies any needs from tcc. [facility] 11-29-2023 Miscellaneous Notes Pt to [...] Limits Permission given to speak with patient employee representative/caregiver as indicated: Confirmation of Payer with patient/family: Yes Payer Name: [employer] Cross Anchor: No Confirmation of Primary Care Physician: Confirmed [...] vaginal cuff followed by interrupted 0 Vicryl yytbel-bb-xczri's in the vagina. Hemostasis was noted pelvis [...] Procedures TOTAL ABDOMINAL HYSTERECTOMY BILATERAL SALPINGO OOPHORECTOMY 01956 - IA TOTAL ABDOMINAL HYSTERECT W/WO RMVL TUBE OVARY Surgeons * Robert Bruce - Primary Procedure Summary Anesthesia: General ASA: III Estimated Blood Loss: 150 cc Drains: Urethral Catheter Straight-tip (Active) Specimens ID Source Type Tests Collected By Collected At Frozen? Priority Lab ID 1 Peritoneal Washings Wash NON-GYNECOLOGIC CYTOLOGY Robert Bruce MD 11/26/23 0929 No Description: PELVIC WASHINGS 2 Uterus Tissue TISSUE EXAM Robert Bruce MD 11/26/23 1006 No Routine Description: UTERUS CERVIX BILATERAL FALLOPIAN TUBES AND BILATERAL OVARIES AND PORTION OF OMENTUM Staff: Smelting Engineer: Emily Arana RN Scrub Person: Ana Madrigal RN [place] to Circ: Shoshana Ocampo [employer] Hourly Manager Student: Katie Levine Findings: large fibroid Complications: [...] AM TISSUE EXAM Uterus Collected By: Robert Burce MD 11/26/2023 10:07 AM Wound Class: Class II: Clean-Contaminated Blood Products: None Prophylactic Antibiotics: Procedure appropriate prophylactic antibiotic(s) given within 1 hour of surgical incision (two hours if receiving Vancomycin or flouroquinolone) documented in this encounter [facility] 11-29-2023 Note 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 [place], 11/29/2023, 12:02 PM [facility] 11-29-2023 Note Formatting of this n ote [...] any other needs arise prior to DC. [facility] 11-29-2023 Note Formatting of this [...] any other needs arise prior to DC. [facility] 11-29-2023 Nurse Note Pt discharge papers reviewed and signed, pt verbalized understanding [facility] 11-29-2023 Nurse Note Pt discharge papers reviewed and signed, pt verbalized understanding documented in this encounter [facility] 11-29-2023 History of Present illness Narrative Images from the original note were not included. PHYSICAL THERAPY [facility] Name/MRN: Taylor Wesley ([id number]) Date: 11/29/2023 Pt is planning on going home today, prefers to save her energy for transfer to home. Di Anaya PT Department of Internal Medicine Division of Endocrinology, Diabetes, & Metabolism Endocrinology Note Patient Name: Taylor Wesley : 1965 AGE: 58 y.o. Room/Bed: [facility] A Admission Date: 11/26/2023 Visit Date: 11/29/2023 Reason for Endocrine Consult: Uncontrolled T2DM Provider/Team Requesting Consult: Dr. Linda PCP: DO Stephanie Warner Bevel Face Stoner And Polisher: No ASSESSMENT: Type 2 diabetes with hyperglycemia [...] found for: CHOLHDLRATIO No results found for: [id number] No results found for: TSH, Z8HXQBQ, P3NCFMU, THYROIDAB Radiology reportsas per the Radiologist Radiology: POCT glucose meter Result Date: 11/27/2023 Performed by: [facility], [address] [place] [address] CLIA ID: [id number] POCT glucose meter Result Date: 11/27/2023 Performed by: [facility] [employer] [facility], [address] [place] [address] CLIA ID: [id number] POCT glucose meter Result Date: 11/27/2023 Performed by: [employer] [facility], [address] [place] [address] CLIA ID: [id number] POCT glucose meter Result Date: 11/27/2023 Performed by: [employer]ochitl (So-Shee) [employer] [facility], [address] [place] [address] CLIA ID: [id number] POCT glucose meter Result Date: 11/26/2023 Performed by: [employer] [facility], [address] [place] [address], [facility] [address] CLIA ID: [id number] POCT glucose meter Result Date: 11/26/2023 Performed by: Xochitl (So-Shee) [employer] [facility], [address] [place] [address] [place] [address] CLIA ID: [id number] POCT glucose meter Result Date: 11/26/2023 Performed by: [facility] [facility] [employer] [facility], [address] [place] [address] [place] [address] CLIA ID: [id number] POCT glucose meter Result Date: 11/26/2023 Performed by: Xochitl (So-Shee) [employer] [facility], [address] [place] [address], [facility] [address] CLIA ID: [id number] POCT glucose meter Result Date: 11/26/2023 Performed by: [facility] [employer] [facility], [address] [place] [address] CLIA ID: [id number] History/Other: Past Medical History: Past Medical History: [...] Wesley : 1965 AGE: 58 y.o. Room/Bed: [facility]/[address] Admission Date: 11/26/2023 Visit Date: 11/28/2023 Reason for Endocrine Consult: Uncontrolled T2DM Provider/Team Requesting Consult: Dr. Linda PCP: Ion Williamson DO Outpt Bevel Face Stoner And Polisher: No ASSESSMENT: Uncontrolled T2DM with hyperglycemia S/p GERARDO with BL salpingoophorectomy Morbid obesity Steroid-induced hyperglycemia PLAN: Increase insulin glargine to 20 units Increase meal-time insulin to 7 units ICU goal <180 GMF goal <150 POCT BG [facility] Hypoglycemia management per protocol Carb controlled diet ANTICIPATED ENDOCRINE HOME GOING RECOMMENDATIONS: Optimized for Discharge from Endocrine standpoint: No Home Going Endocrine Rx Recommendations-- Pending Outpt Follow Up-- None SUBJECTIVE/HPI: CHIEF COMPLAINT: No chief complaint on file. Ms. Wesley is a 58yoF with a pmhx T2DM that presented to [facility] 11/25 for GERARDO with BL salpingoophorectomy [...] found for: CHOLHDLRATIO No results found for: [id number] No results found for: TSH, K0AINVU, I7GAWCP, THYROIDAB Radiology reportsas per the Radiologist Radiology: POCT glucose meter Result Date: 11/27/2023 Performed by: [facility], [address] [place] [address] CLIA ID: [id number] POCT glucose meter Result Date: 11/27/2023 Performed by: [facility], [address] [place] [address] CLIA ID: [id number] POCT glucose meter Result Date: 11/27/2023 Performed by: [facility] [address] CLIA ID: [id number] POCT glucose meter Result Date: 11/27/2023 Performed by: [facility], [address] [place] [address] CLIA ID: [id number] POCT glucose meter Result Date: 11/26/2023 [facility]formed by: [facility], [address] [place] [address] CLIA ID: [id number] POCT glucose meter Result Date: 11/26/2023 [facility]formed by: [facility], [address] [place] [address] CLIA ID: [id number] POCT glucose meter Result Date: 11/26/2023 Performed by: [facility], [address] [place] [address] CLIA ID: [id number] POCT glucose meter Result Date: 11/26/2023 Performed by: [facility], [address] [place] [address] CLIA ID: [id number] POCT glucose meter Result Date: 11/26/2023 Performed by: [facility], [address] [place] [address] CLIA ID: [id number] History/Other: Past Medical History: Past Medical History: Diagnosis Date Asthma Cerebral palsy (HCC) Diabetes (HCC) History of transfusion Hx of bronchitis Hypertension Intra-abdominal and pelvic swelling, mass and lump, unspecified site 11/2023 Paraplegia (HCC) Scoliosis Stroke ([facility]) at age 2.5 secondary to [...] patient. In addition, I have reviewed the resident's/VP HUMAN RESOURCES/HEEL BLACKER's care plan and agree with those findings [...] imaging are reviewed as detailed in the resident's/VP HUMAN RESOURCES/HEEL BLACKER's note Images from the original note were not included. [employer]EN[employer] PATTERNMAK[employer] MET[employer] ONC Progress Note Date: 11/28/2023 Time: 6:14 AM Please page the [facility] BENCH PATTERNMAKER METAL ONC Call RES group via Secure Chat [...] glucose meter Result Date: 11/27/2023 [facility]formed by: [facility], [address] [place] [address] CLIA ID: [id number] POCT glucose meter Result Date: 11/27/2023 Performed by: [facility] [employer] [facility], [address] [place] [address] CLIA ID: [id number] POCT glucose meter Result Date: 11/27/2023 Performed by: [facility], [address] [place] [address] CLIA ID: [id number] POCT glucose meter Result Date: 11/27/2023 Performed by: [facility] [place] [facility], [address] [place] [address] CLIA ID: [id number] POCT glucose meter Result Date: 11/26/2023 Performed by: [facility] [place] [facility], [address] [place] [address], [place] [address] CLIA ID: [id number] POCT glucose meter Result Date: 11/26/2023 Performed by: [facility] [place] [facility], [address] [place] [address], [place] [address] CLIA ID: [id number] POCT glucose meter Result Date: 11/26/2023 Performed by: [facility] [place] [facility], [address] [place] [address], [place] [address] CLIA ID: [id number] POCT glucose meter Result Date: 11/26/2023 Performed by: [facility] [place] [facility], [address] [place] [address], [place] [address] CLIA ID: [id number] POCT glucose meter Result Date: 11/26/2023 Performed by: [facility] [place] [facility], [address] [place] [address], [place] [address] CLIA ID: [id number] Labs: Admission on 11/26/2023 Component Date Value Ref Range Status Glucose 11/26/2023 270 (H) 70 - 100 mg/dL Final Case Report 11/26/2023 Final Value:Non-Gynecologic Cytology Case: [id number] Authorizing Provider: Robert Bruce MD Collected: 11/26/2023 0928 Ordering Location: [facility] MA[facility] OR Received: 11/26/2023 1405 Pathologist: [...] be displayed here. Case Screening Location 11/26/2023 [facility] [address] [facility] [address]; CLIA: [id number]; Joint Commission: [id number]; CAP: [id number] Final Pathologist Interpretation Location 11/26/2023 [facility], [address] [facility] [address]; CLIA: [id number]; Joint Commission: [id number]; CAP: [id number] Final Glucose 11/26/2023 321 (H) 70 - [...] discussed with Dr. Bruce Please page the [facility] BENCH PATTERNMAKER METAL ONC Call RES group via Secure Chat [...] original note were not included. PHYSICAL THERAPY [facility] Treatment Note Name/MRN: Taylor Wesley ([id number]) Date of : 1965 Age: 58 y.o. [...] original note were not included. PHYSICAL THERAPY [facility] Initial Evaluation Name/MRN: Taylor Wesley ([id number]) Evaluation Date: 11/27/2023 Date of : 1965 Admission Date: 11/26/2023 7:42 AM Age: 58 y.o. Room/Bed: [facility] A Discharge Recommendation: Home with assist PRN, Home with Home health PT Equipment Needed: No Other: She has her electric wheelchair here at the hospital. Assessment IMPRESSION: Taylor Wesley was admitted on 11.26.23 with intra-abdominal and pelvic swelling, mass and lump. She underwent [facility] BSO. She has hemiplegia, SP, and scoliosis. [...] unspecified site 11/2023 Paraplegia (HCC) Scoliosis Stroke ([facility]) at age 2.5 secondary to [...] Assist Receives Help From: Significant other Active Printer Slotter Feeder: Yes Prior Level of Function ADL Assistance: [...] of Care supervision is transferred to a [facility] Therapy Services Physical Therapist. Goals and/or treatment plan was established in collaboration with patient/family/other representatives. Images from the original note were not included. BEN[employer] PATTERNMAKER METAL ONC Progress Note Date: 11/27/2023 Time: 6:11 AM Please page the [facility] BENCH PATTERNMAKER METAL ONC Call RES group via Secure Chat [...] mL/hr, IntraVENous, Continuous, Isabel Gonzalez APRN - DIESEL TECHNICIAN MECHANIC, Last Rate: 50 mL/hr at 11/26/23 09, [...] glucose meter Result Date: 11/26/2023 Performed by: [facility], [address] [place] [address] CLIA ID: [id number] POCT glucose meter Result Date: 11/26/2023 Performed by: [facility], [address] [place] [address] CLIA ID: [id number] POCT glucose meter Result Date: 11/26/2023 Performed by: [facility] [place] [facility], [address] [place] [address] CLIA ID: [id number] POCT glucose meter Result Date: 11/26/2023 Performed by: [facility] [place] [facility], [address] [place] [address] CLIA ID: [id number] POCT glucose meter Result Date: 11/26/2023 Performed by: [facility], [address] [place] [address] CLIA ID: [id number] Labs: Admission on 11/26/2023 Component Date Value [...] discussed with Dr. Bruce Please page the [facility] BENCH PATTERNMAKER METAL ONC Call RES group via Secure Chat [...] 11/26/2023 3:16 PM documented in this encounter [facility] 11-28-2023 Note Formatting of this [...] dc to home when blood sugar controlled. [facility] 11-28-2023 Note Formatting of this n [...] dc to home when blood sugar controlled. [facility] 11-28-2023 Note TCC PROGRESS NOTE: Pt [...] dc to home when blood sugar controlled. [facility] 11-27-2023 Consult note Associated Order (s): IP CONSULT TO BANQUET LEAD In Patient DIABETES EDUCATION: Patient instructed in [...] Right arm posterior Ref: AT-031 EXP:12/2023 Lot #:[id number] Patient instructed on the following; Use of [...] BG and in the need for the lunch truck driver or ordering physician to decrease insulin dosages [...] Controlling Blood Sugar Book Blood Sugar Log [facility] [employer] 11-27-2023 Note In Patient DIABETES EDUCATION: Patient [...] Right arm posterior Ref: VINCENT-AT-031 EXP:12/2023 Lot #:[id number] Patient instructed on the following; Use of [...] management. Changing next site. Connected to Dexcom Inofile and linked to office The importance of communicate CGM reports and/or glucose log to provider at follow up, The steps in using a glucometer: Obtaining BG sample, correctly, the purpose, proper disposal of sharps, frequency of testing, documentation, target blood sugars and when to call the doctor Effects of steroid use on BG and in the need for the lunch truck driver or ordering physician to decrease insulin dosages [...] Controlling Blood Sugar Book Blood Sugar Log [facility] 11-27-2023 Consult note Associated Order (s): IP CONSULT TO BANQUET LEAD In Patient DIABETES EDUCATION: Patient instructed in [...] Right arm posterior Ref: VINCENT-AT-031 EXP:12/2023 Lot #:[id number] Patient instructed on the following; Use of [...] BG and in the need for the lunch truck driver or ordering physician to decrease insulin dosages [...] Wesley : 1965 AGE: 58 y.o. Room/Bed: [facility] A Admission Date: 11/26/2023 Visit Date: 11/27/2023 Reason for Endocrine Consult: Uncontrolled T2DM Provider/Team Requesting Consult: Dr. 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 Type of DM: 2 Onset of DM: 2 years ago Home DM Medication Regimen: glimepiride 2mg bid DM control (last A1c/glucose data): 10.6 Ms. Wesley is a 58yoF with a PMHx T2DM, cerebral palsy c/b paraplegia (wheelchair bound) that presented to [facility] 11/25 for GERARDO with BL salpingoophorectomy. [...] found for: CHOLHDLRATIO No results found for: [id number] No results found for: TSH, A8ZZNUD, H7EBODT, THYROIDAB Radiology reportsas per the Radiologist Radiology: POCT glucose meter Result Date: 11/27/2023 Performed by: [facility], [address] [place] [address] CLIA ID: [id number] POCT glucose meter Result Date: 11/26/2023 Performed by: [facility], [address] [place] [address] CLIA ID: [id number] POCT glucose meter Result Date: 11/26/2023 Performed by: [facility] [employer] [facility], [address] [place] [address] CLIA ID: [id number] POCT glucose meter Result Date: 11/26/2023 Performed by: [facility], [address] [place] [address] CLIA ID: [id number] POCT glucose meter Result Date: 11/26/2023 Performed by: [facility] [employer] [facility], [address] [place] [address] CLIA ID: [id number] POCT glucose meter Result Date: 11/26/2023 Performed by: [facility] [employer] [facility], [address] [place] [address] CLIA ID: [id number] History/Other: Past Medical History: Past Medical History: [...] patient. In addition, I have reviewed the resident's/VP HUMAN RESOURCES/HEEL BLACKER's care plan and agree with those findings [...] side effects related to Ozempic Discussed with beach expert to teach patient how to use insulin [...] imaging are reviewed as detailed in the resident's/VP HUMAN RESOURCES/HEEL BLACKER's note documented in this encounter [facility] 11-27-2023 Note PHYSICAL THERAPY [facility] Initial Evaluation Name/MRN: Taylor Wesley ([id number]) Evaluation Date: 11/27/2023 Date of : 1965 [...] Assist Receives Help From: Significant other Active Printer Slotter Feeder: Yes Prior Level of Function ADL Assistance: [...] up in he (more content not included)... [facility] 11-27-2023 Note Formatting of this n ote might be different from the original. Care Managment Initial Assessment Date: 11/27/2023 Patient Name: Taylor Wesley : 1965 Patient Information Source of Information: Patient Cognition/Language: WFL - Within Functional Limits Permission given to speak with patient employee representative/caregiver as indicated: Confirmation of Payer with patient/family: Yes Payer Name: Avani Shannon Cross Anchor: No Confirmation of Primary Care Physician: Confirmed [...] Will continue to follow. Akosua Hughes RN [employer] 11-27-2023 Note Formatting of this n ote might be different from the original. Care Managment Initial Assessment Date: 11/27/2023 Patient Name: Taylor Wesley : 1965 Patient Information Source of Information: Patient Cognition/Language: WFL - Within Functional Limits Permission given to speak with patient employee representative/caregiver as indicated: Confirmation of Payer with patient/family: Yes Payer Name: [employer]van[employer] Cross Anchor: No Confirmation of Primary Care Physician: Confirmed [...] continue to follow. Akosua Hughes RN T [facility] 11-27-2023 Consult note Associated Order (s): IP CONSULT TO ENDOCRINOLOGY Department of Internal Medicine Division of Endocrinology, Diabetes, & Metabolism Endocrinology Note Patient Name: Taylor Wesley : 1965 AGE: 58 y.o. Room/Bed: [facility] A Admission Date: 11/26/2023 Visit Date: 11/27/2023 Reason for Endocrine Consult: Uncontrolled T2DM Provider/Team Requesting Consult: Dr. 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 Type of DM: 2 Onset of DM: 2 years ago Home DM Medication Regimen: glimepiride 2mg bid DM control (last A1c/glucose data): 10.6 Ms. Wesley is a 58yoF with a PMHx T2DM, cerebral palsy c/b paraplegia (wheelchair bound) that presented to [facility] 11/25 for GERARDO with BL salpingoophorectomy. [...] found for: CHOLHDLRATIO No results found for: [id number] No results found for: TSH, L0XXHUI, A7ZVWFT, THYROIDAB Radiology reportsas per the Radiologist Radiology: POCT glucose meter Result Date: 11/27/2023 Performed by: [facility], [address] [place] [address] CLIA ID: [id number] POCT glucose meter Result Date: 11/26/2023 Performed by: [facility], [address] [place] [address] CLIA ID: [id number] POCT glucose meter Result Date: 11/26/2023 Performed by: [facility], [address] [place] [address] CLIA ID: [id number] POCT glucose meter Result Date: 11/26/2023 [facility]formed by: [facility], [address] [place] [address] CLIA ID: [id number] POCT glucose meter Result Date: 11/26/2023 Performed by: [facility], [address] [place] [address] CLIA ID: [id number] POCT glucose meter Result Date: 11/26/2023 Performed by: [facility], [address] [place] [address] CLIA ID: [id number] History/Other: Past Medical History: Past Medical History: [...] patient. In addition, I have reviewed the resident's/VP HUMAN RESOURCES/HEEL BLACKER's care plan and agree with those findings [...] side effects related to Ozempic Discussed with beach expert to teach patient how to use insulin [...] imaging are reviewed as detailed in the resident's/VP HUMAN RESOURCES/HEEL BLACKER's note [facility] 11-26-2023 Plan of care note [...] to address these barriers include nutritional consult. [facility] 11-26-2023 Note Formatting of this n ote might be different from the original. Report called to REMEDIOS Torres T [facility] 11-26-2023 Note Formatting of this n ote might be different from the original. Report called to REMEDIOS Torres T [facility] 11-26-2023 Note Patient: Taylor Wesley Procedure Summary Date: 11/26/23 Room / Location: [address] Operating Room Anesthesia Start: 902 Anesthesia [...] once all PACU criteria has been met. [facility] 11-26-2023 Note Patient: Taylor Wesley Procedure Summary Date: 11/26/23 Room / Location: [facility] Operating Room Anesthesia Start: 902 Anesthesia Stop: [...] start time until discharged from PACU (G2148) [facility] Anesthesiology Smoking Abstinence The patient is [...] opportunity for questions and acknowledgement of understanding. [facility] 11-26-2023 Note Airway Date/Time: 11/26/2023 9:11 AM Urgency: scheduled Airway not difficult General Information and Staff Patient location during procedure: Procedural Resident/CATERING SERVICE MANAGER: BARBARA Balderrama CRNA Performed: SRNA Indications and Patient Condition Indications for airway management: anesthesia Sedation level: Asleep Preoxygenated: yes Mask difficulty assessment: 2 - vent by mask + OA or adjuvant +/- NMBA Final Airway Details Final airway type: endotracheal airway Successful airway: ETT Cuffed: yes Successful intubation technique: video laryngoscopy Facilitating devices/methods: intubating stylet Endotracheal tube insertion site: oral Blade: Maben scope Blade size: #3 ETT size (mm): 7.0 Cormack-Lehane Classification: grade I - full view of glottis Placement verified by: chest auscultation and capnometry Measured from: gums ETT to gums (cm): 21 Number of attempts at approach: 1 [facility] 11-26-2023 Note Peripheral Block Time Out: 11/26/2023 9:08 AM Patient location during procedure: Procedural Start time: 11/26/2023 9:08 AM End time: 11/26/2023 9:14 AM Reason for block: at surgeon's request and post-op pain management Staffing Performed: CATERING SERVICE MANAGER Resident/CATERING SERVICE MANAGER: BARBARA Wyatt CRNA Preanesthetic Checklist Completed: patient identified, IV checked, site marked, risks and benefits discussed, surgical consent, monitors and equipment checked, pre-op evaluation and timeout performed Region: [place] Primary: TAP Secondary: Upper rectus Peripheral Block Patient position: supine Prep: ChloraPrep Patient monitoring: heart rate, color television console monitor, continuous pulse ox and continuous capnometry O2: [...] plane. and Local anesthetic injected without difficultyMedications twqDBLKQcdxit-uenfulgqlwb-sgwrhyyr ine (TAP) syringe - Injection 40 mL - 11/26/2023 9:08:00 AM bupivacaine liposome (Exparel) 1.3 % injection - Injection 20 mL - 11/26/2023 9:08:00 AM [facility] 11-26-2023 Note Formatting of this n ote [...] vaginal cuff followed by interrupted 0 Vicryl bnhnql-fq-yqrgw's in the vagina. Hemostasis was noted pelvis [...] no evidence of endometrial cancer or hyperplasia [facility] 11-26-2023 Note Formatting of this n ote is different from the original. Date: 11/26/2023 Location: [facility] OR Name: Taylor Wesley, : 1965, Diagnosis Pre-op Diagnosis * Intra-abdominal and pelvic swelling, mass and lump, unspecified site [R19.00] Post-op Diagnosis * Intra-abdominal and pelvic swelling, mass and lump, unspecified site [R19.00] Procedures TOTAL ABDOMINAL HYSTERECTOMY BILATERAL SALPINGO OOPHORECTOMY 80639 - IA TOTAL ABDOMINAL HYSTERECT W/WO RMVL TUBE OVARY [...] BILATERAL OVARIES AND PORTION OF OMENTUM Staff: Smelting Engineer: Emily Arana RN Scrub Person: Ana Madrigal RN [place] to Circ: Shoshana Ocampo [employer] Hourly Manager Student: Katie Levine Findings: large fibroid Complications: [...] (two hours if receiving Vancomycin or flouroquinolone) [facility] Note Formatting of this n ote [...] vaginal cuff followed by interrupted 0 Vicryl lrnxmx-pe-ucwtp's in the vagina. Hemostasis was noted pelvis [...] evidence of endometrial cancer or hyperplasia T [facility] 11-26-2023 Note Formatting of this n ote is different from the original. Date: 11/26/2023 Location: [facility] OR Name: Taylor Wesley, : 1965, Diagnosis Pre-op Diagnosis * Intra-abdominal and pelvic swelling, mass and lump, unspecified site [R19.00] Post-op Diagnosis * Intra-abdominal and pelvic swelling, mass and lump, unspecified site [R19.00] Procedures TOTAL ABDOMINAL HYSTERECTOMY BILATERAL SALPINGO OOPHORECTOMY 00441 - [place] TOTAL ABDOMINAL HYSTERECT W/WO RMVL TUBE OVARY [...] BILATERAL OVARIES AND PORTION OF OMENTUM Staff: Smelting Engineer: Emily Arana RN Scrub Person: Ana Madrigal RN [place] to [employer]: Shoshana Ocampo [employer] Hourly Manager Student: Katie Levine Findings: large fibroid Complications: [...] (two hours if receiving Vancomycin or flouroquinolone) [facility] 11-26-2023 Attending History and physical note H&P reviewed. The patient was examined and there are no changes to the H&P. Source Note - Rachel Zarco, PROJECT MANAGEMENT PROFESSOR - DIESEL TECHNICIAN MECHANIC - 11/19/2023 9:30 AM EDT Images from [...] 1.5 HOURS GENERAL AND TAP BLOCK Location: [facility] OR [address] [place] [address] Operating Room Surgeons: Robert Bruce MD Chief [...] > 9 requires a referral back to PCP/[facility] [employer] for further optimization prior to surgery. 4) [...] ? Operative Report on 10-01-2023 Operative Report [facility] Medical Records Department [address] [place] [address] Operative Report 10/01/23 1525 MR#: [id number] Acct: [id number] Name: TAYLOR WESLEY Cristóbal Rep #: [id number] : 1965 57 From: Ana Rosa Tolliver DO PCP: Dr. Yenni Williamson DO Status:[facility] Location: [place] [address] Problems Associated Problem List Diagnoses (1) Postmenopausal bleeding: (2) Fibroid uterus: (3) Abnormal uterine bleeding (AUB): Report of Operation Date of Procedure: 10/01/23 Pre-Operative Diagnosis: postmenopausal bleeding, large fibroid uterus Post-Operative Diagnosis: postmenopausal bleeding, large fibroid uterus Surgery/Procedure Performed:: pelvic exam under anesthesia Description of Surgical Findings:: long thin vagina, unable to visualize cervix Surgeon: Ana Rosa Tolliver photo engraver: None Type of Anesthesia: MAC Anesthesiologist: Bishop [...] SCD's VTE Pharm Prophylaxis ordered?: No 10/01/23 9635 Denies history of [place], CAD, CHF. Denies CP, SOB, dizziness at [...] QT Interval 378 QTC Interval 451 P Paola 66 QRS Paola 50 T Wave Paola 39 IA Interval 168 Impression Sinus rhythm Low voltage, precordial leads ECHO and EF: None on file No components found for: LVEF, LVEFMODE METS: Patient can not ambulate at baseline 2/2 hemiplegia, denies CP, SOB at rest. Electronically signed by: Rachel Zarco APRN - DIESEL TECHNICIAN MECHANIC Date: 11/19/2023 at 10:52 AM [employer] Work Phone: 11-26-2023 Note H&P reviewed. The viktor dozier was examined and there are no changes to the H&P. [facility]-26-2023 History and physical note H&P reviewed. The patient was examined and there are no changes to the H&P. Source Note - Rachel Zarco, PROJECT MANAGEMENT PROFESSOR - DIESEL TECHNICIAN MECHANIC - 11/19/2023 9:30 AM EDT Images from [...] 1.5 HOURS GENERAL AND TAP BLOCK Location: [facility] OR [address] [place] [address] Operating Room Surgeons: Robert Bruce MD Chief [...] > 9 requires a referral back to PCP/[employer] for further optimization prior to surgery. 4) [...] ? Operative Report on 10-01-2023 Operative Report [facility] Medical Records Department [address] [place] [address] Operative Report 10/01/23 1525 MR#: [id number] Acct: [id number] Name: TAYLOR WESLEY Rep #: [id number] : 1965 57 From: Ana Rosa Tolliver DO PCP: Dr. Yenni Williamson DO Status:[facility] Location: [place] [address] Problems Associated Problem List Diagnoses (1) Postmenopausal bleeding: (2) Fibroid uterus: (3) Abnormal uterine bleeding (AUB): Report of Operation Date of Procedure: 10/01/23 Pre-Operative Diagnosis: postmenopausal bleeding, large fibroid uterus Post-Operative Diagnosis: postmenopausal bleeding, large fibroid uterus Surgery/Procedure Performed:: pelvic exam under anesthesia Description of Surgical Findings:: long thin vagina, unable to visualize cervix Surgeon: Ana Rosa Tolliver photo engraver: None Type of Anesthesia: MAC Anesthesiologist: Bishop [...] SCD's VTE Pharm Prophylaxis ordered?: No 10/01/23 7825 Denies history of [place], CAD, CHF. Denies CP, SOB, dizziness at this time. Past Medical History: Past Medical History: No date: Asthma No date: Cerebral palsy (HCC) No date: Diabetes (HCC) No date: History of transfusion No date: Hx of bronchitis No date: Hypertension 11/2023: Intra-abdominal and pelvic swelling, mass and lump, unspecified site No date: Paraplegia (HCC) No date: Scoliosis No date: Stroke ([facility]) Comment: at age 2.5 secondary [...] QT Interval 378 QTC Interval 451 P Paola 66 QRS Paola 50 T Wave Paola 39 IA Interval 168 Impression Sinus rhythm Low voltage, precordial leads ECHO and EF: None on file No components found for: LVEF, LVEFMODE METS: Patient can not ambulate at baseline 2/2 hemiplegia, denies CP, SOB at rest. Electronically signed by: Rachel Zarco APRN - CT Date: 11/19/2023 at 10:52 AM documented in this encounter [facility] 11-19-2023 Note Patient: Taylor Wesley Procedure Information Date/Time: 11/26/23 0900 Procedure: TOTAL ABDOMINAL HYSTERECTOMY BILATERAL SALPINGO OOPHORECTOMY (Bilateral: Abdomen) - 1.5 HOURS GENERAL AND TAP BLOCK Location: [facility] OR [address] [place] [address] Operating Room Surgeons: Robert Bruce MD Relevant [...] previous visit. Equipment Requests: Additional Equipment Requests [facility] 11-19-2023 Note ADDENDUM: Reviewed a bnormal labs drawn in [facility]. Sent to surgeon and PCP. Comprehensive Pre Surgical History and Physical ? Name: Taylor Wesley : 1965 (Age-58 y.o.) Date of Service: Pt seen/examined on 11/19/2023 Procedure Information Date/Time: 11/26/23 0900 Procedure: TOTAL ABDOMINAL HYSTERECTOMY BILATERAL SALPINGO OOPHORECTOMY (Bilateral: Abdomen) - 1.5 HOURS GENERAL AND TAP BLOCK Location: [address] Operating Room Surgeons: Robert Bruce MD [...] glucose goal is <250 DOS - Per [facility] protocol; A1c > 9 requires a referral back to PCP/[employer] for further optimization prior to surgery. 4) [...] ? Operative Report on 10-01-2023 Operative Report [facility] Medical Records Department [address] [facility] [place] [address] Operative Report 10/01/23 1525 MR#: [id number] Acct: [id number] Name: TAYLOR WESLEY Rep #: [id number] : 1965 57 From: Ana Rosa Tolliver DO PCP: Dr. Yenni Williamson, Status:[facility] Location: [place] [address] Problems Associated Problem List Diagnoses (1) Postmenopausal bleeding: (2) Fibroid uterus: (3) Abnormal uterine bleeding (AUB): Report of Operation Date of Procedure: 10/01/23 Pre-Operative Diagnosis: postmenopausal bleeding, large fibroid uterus Post-Operative Diagnosis: postmenopausal bleeding, large fibroid uterus Surgery/Procedure Performed:: pelvic exam under anesthesia Description of Surgical Findings:: long thin vagina, unable to visualize cervix Surgeon: Ana Rosa Tolliver photo engraver: None Type of Anesthesia: MAC Anesthesiologist: Bishop [...] from small scrapes (more content not included)... [facility] 11-19-2023 Note ADDENDUM: Reviewed a bnormal labs drawn in PAT. Sent to surgeon and PCP. Comprehensive Pre Surgical History and Physical ? Name: Taylor Wesley : 1965 (Age-58 y.o.) Date of Service: Pt seen/examined on 11/19/2023 Procedure Information Date/Time: 11/26/23 0900 Procedure: TOTAL ABDOMINAL HYSTERECTOMY BILATERAL SALPINGO OOPHORECTOMY (Bilateral: Abdomen) - 1.5 HOURS GENERAL AND TAP BLOCK Location: [address] Operating Room Surgeons: Robert Bruce MD [...] > 9 requires a referral back to PCP/[employer] for further optimization prior to surgery. 4) [...] ? Operative Report on 10-01-2023 Operative Report [facility] Medical Records Department [address] [place] [address] Operative Report 10/01/23 1525 MR#: [id number] Acct: [id number] Name: TAYLOR WESLEY Rep #: [id number] : 1965 57 From: Ana Rosa Tolliver DO PCP: Dr. Yenni Williamson DO Status:[facility] Location: [place] [address] Problems Associated Problem List Diagnoses (1) Postmenopausal bleeding: (2) Fibroid uterus: (3) Abnormal uterine bleeding (AUB): Report of Operation Date of Procedure: 10/01/23 Pre-Operative Diagnosis: postmenopausal bleeding, large fibroid uterus Post-Operative Diagnosis: postmenopausal bleeding, large fibroid uterus Surgery/Procedure Performed:: pelvic exam under anesthesia Description of Surgical Findings:: long thin vagina, unable to visualize cervix Surgeon: Ana Rosa Tolliver photo engraver: None Type of Anesthesia: MAC Anesthesiologist: Bishop [...] from small scrapes (more content not included)... [facility] 10-21-2023 Telephone encounter Note error [facility] 10-21-2023 Miscellaneous Notes error documented in this encounter [facility] 2023 Telephone encounter Note PAT: 09.10.2023 at 9:30 am SX: .17.4 at 9 am arrival at 7 am Post op 10.04.2024 at 8:30 am Folder and instructions given. [facility] 2023 Miscellaneous Notes PAT: 09.10.2023 at 9:30 am SX: .17.4 at 9 am arrival at 7 am Post op 10.04.2024 at 8:30 am Folder and instructions given. documented in this encounter [facility] 2023 History of Present illness [...] of intra-abdominal surgery. Denies any history of [place] DVT or pulmonary embolism. Denies any sudden [...] nursing note reviewed. Exam conducted with a drift miner present. Constitutional: Appearance: She is obese. Cardiovascular: [...] of service with coordination of surgical scheduling [id number] counseling with patient as well as review of EMR was 35 minutes documented in this encounter [facility] 2023 Note HPI: Taylor Wesley [...] of intra-abdominal surgery. Denies any history of [place] DVT or pulmonary embolism. Denies any sudden [...] nursing note reviewed. Exam conducted with a drift miner present. Constitutional: Appearance: She is obese. Cardiovascular: [...] of service with coordination of surgical scheduling [id number] counseling with patient as well as review of EMR was 35 minutes [facility] 10-16-2023 Telephone encounter Note Name of caller: Rayna Contact phone number: [phone] Relationship to Patient: spouse Provider: teo Practice: [facility] Chief Complaint/Reason for Call: patients spouse [...] business hours to return their call: No [facility] 10-16-2023 Miscellaneous Notes Name of caller: Rayna Contact phone number: [phone] Relationship to Patient: spouse Provider: teo Practice: [facility] Chief Complaint/Reason for Call: patients spouse [...] their call: No documented in this encounter [facility] 06-25-2023 Note [facility] Pap Smear Specimen Adequacy June 25, 2023 9:50am Comment . Satisfactory for evaluation. Endocervical and/or squamous metaplasticcells (endocervical component) are present. Comment on above: Satisfactory for joanna luation. Endocervical and/or squamous metaplasticcells (endocervical component) are present. 06-25-2023 Note [facility] Pap Smear Specimen Adequacy June 25, 2023 9:50am Comment . Satisfactory for evaluation. Endocervical and/or squamous metaplasticcells (endocervical component) are present. Comment on above: Satisfactory for joanna luation. Endocervical and/or squamous metaplasticcells (endocervical component) are present. 06-25-2023 Note [facility] Pap Smear Specimen Adequacy June 25, 2023 9:50am Comment . Satisfactory for evaluation. Endocervical and/or squamous metaplasticcells (endocervical component) are present. Comment on above: Satisfactory for joanna luation. Endocervical and/or squamous metaplasticcells (endocervical component) are present. 06-14-2023 Note HNO ID: [id number] Author: VICKY MARTINEZ RT(Win) Service: ? Author [...] PATIENT PRESENTS WITH AN IMPLANTABLE OR ATTACHED SALESPERSON SEWING MACHINES: No RADIOLOGY DEPARTMENT: Mammography PERIPHERAL IV DATA: Not applicable SIGNED BY: JERICA Thapa) June 14, 2023 9:[address] [facility] 06-14-2023 History of Presen t illness [...] PATIENT PRESENTS WITH AN IMPLANTABLE OR ATTACHED SALESPERSON SEWING MACHINES: No RADIOLOGY DEPARTMENT: Mammography PERIPHERAL IV DATA: Not applicable SIGNED BY: RT Alanis(Win) June 14, 2023 9:20 AM documented in this encounter [facility] 02-08-2023 Miscellaneous Notes I spoke with her and she is aware. We will schedule 6 month US at her next visit. Please notify patient US probably benign. 6 month follow up recommended. Order placed for US. She is scheduled to see HEEL BLACKER in May 2023. Jazmin Zazueta MD documented in this encounter [facility] 01-25-2023 Note HNO ID: [id number] Author: Marycruz Laughlin RT(R) Service: ? Author [...] RT Keyanna(R) January 25, 2023 10:[address] [facility] 01-04-2023 Note HNO ID: [id number] Author: Jazmin Zazueta MD Service: ? Author Type: Physician Type: Progress Notes Filed: 01/04/2023 9:47 AM Note Text: Jazmin Zazueta MD [facility] [address] [place], [place] [id number] SUBJECTIVE Chief Complaint: Patient presents with: Breast [...] months with bilateral mammograms and appointment with HEEL BLACKER. Follow up: Return for left US first available. Keep appointment with HEEL BLACKER as scheduled. Jazmin Zazueta MD 01/04/2023 9:30 AM Medical Decision Making: Problems: Mode (more content not included)... [facility] 01-04-2023 History of Presen t illness Narrative Images from the original note were not included. Jazmin Zazueta MD [facility] [address] [place] [address] SUBJECTIVE Chief Complaint: Patient presents with: Breast [...] months with bilateral mammograms and appointment with HEEL BLACKER. Follow up: Return for left US first available. Keep appointment with HEEL BLACKER as scheduled. Jazmin Zazueta MD 01/04/2023 9:30 AM Medical Decision Making: Problems: Moderate: New problem with uncertain prognosis and 2+ stable chronic illnesses Data: Unique test result(s) reviewed: 1 Unique test(s) ordered: 1 Risk: Minimal: Minimal risk from testing/treatment Medical Decision Making Level: 3 - Low documented in this encounter [facility] 01-04-2023 Nurse Note Taylor Wesley is a 57 year old female who presents for Breast Problem (Patient presents for a new LT axilla mass. Patient confirms palpability, as well as discomfort and itching. Patient denies any nipple abnormalities or nipple discharge. ) Karen Hoyos MA documented in this encounter [facility] 11-09-2022 Note HNO ID: [id number] Author: Jazmin Zazueta MD Service: ? Author Type: Physician Type: Progress Notes Filed: 11/09/2022 12:44 PM Note Text: Jazmin Zazueta MD [facility] [address] [place], [place] [id number] SUBJECTIVE Chief Complaint: Patient presents with: Follow [...] CANCER 1 PREVIOUS BREAST BIOPSIES Yes RACE -Estonian Review of Systems Constitutional: Negative for fever, [...] months with bilateral mammograms and appointment with HEEL BLACKER. Follow up: No follow-ups on file. Jazmin Zazueta MD 11/08/2022 1:[address] [facility] 11-09-2022 Nurse Note Patient presents for follow up after imaging. Denies any new concerns. ALISSON Freed documented in this encounter [facility] 11-09-2022 History of Presen t illness Narrative Images from the original note were not included. Jazmin Zazueta MD [facility] [address] [place] [address] SUBJECTIVE Chief Complaint: Patient presents with: Follow [...] CANCER 1 PREVIOUS BREAST BIOPSIES Yes RACE -Estonian Review of Systems Constitutional: Negative for fever, [...] months with bilateral mammograms and appointment with HEEL BLACKER. Follow up: No follow-ups on file. Jazmin Zazueta MD 11/08/2022 1:49 PM documented in this encounter [facility] 04-27-2022 Miscellaneous Notes [facility] [address] [place] [address] April 27, 2022 PID: [id number] Taylor Wesley [address] [address] Dear Ms. Wesley, Your recent breast imaging examination performed on 04/27/2022 showed an area that we believe is probably benign (not cancer). A six month follow-up is recommended to ensure your breast health. Please call [phone] to make an appointment for these tests [...] report will be kept on file at [facility] as part of your permanent medical record and are available for your continuing care. Thank you for allowing us to help in meeting your health care needs. Sincerely, Dr. Ledezma Interpreting Radiologist [facility] (# mo Follow-up) documented in this encounter [facility] 10-19-2021 Note HNO ID: [id number] Author: Megan Conklin, DO Service: ? Author Type: Physician Type: Progress Notes Filed: 10/19/2021 1:23 PM Note Text: Taylor Wesley 56 year old female seen today for The primary encounter diagnosis was Type 2 diabetes mellitus with other specified complication, without long-term current use of insulin ([facility]). Diagnoses of Hypokalemia and Essential [...] Conklin DO October 19, 2021 1:03 PM [facility] 10-19-2021 History of Presen t illness Narrative [...] on File Prior to Visit Medication Sig NanoSight VERIO TEST STRIPS test strip USE TO [...] 2021 1:03 PM documented in this encounter [facility] 2021 History of Presen t illness Narrative Images from the original note were not included. Jazmin Zazueta MD [facility] [address] [place] [address] SUBJECTIVE Chief Complaint: Patient presents with: 6 [...] 1 PREVIOUS BREAST BIOPSIES Yes (x1) RACE -Estonian GEOVANI MODEL RISK 5 YEAR 2.4 GEOVANI [...] months with bilateral mammograms and appointment with HEEL BLACKER. Follow up: Return for bilateral mammograms and appointment with HEEL BLACKER in 6 months. Jazmin Zazueta MD 2021 10:25 AM documented in this encounter [facility] 2021 Nurse Note Patient is being seen for her 6 month exam. Patient had a mammogram 09-01-21. Patient states that she is not having any breast pains or concerns today. ST Sushant documented in this encounter [facility] 09-14-2021 Miscellaneous Notes Results left on patient voicemail. Taylor Wesley's Custom Cancer Panel through 1-800-DENTIST was negative for a pathogenic variant. 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 Please see [employer] message for further discussion. LEONARD Oliva Licensed, Certified Genetic Counselor documented in this encounter [facility] 09-12-2021 History of Past i llness Narrative Problem Noted Date Resolved Date Sepsis 09/12/2021 11/19/2021 documented as of this encounter (statuses as of 04/28/2022) [facility] History of Past illness Narrative* Problem Noted Date Resolved Date Sepsis 09/12/2021 11/19/2021 documented as of this encounter (statuses as of 05/01/2022) [facility] History of Past illness Narrative* Problem Noted Date Diagnosed Date Resolved Date Sepsis 09/12/2021 11/19/2021 documented as of this encounter (statuses as of 11/09/2022) [facility] History of Past illness Narrative* Problem Noted Date Diagnosed Date Resolved Date Sepsis 09/12/2021 11/19/2021 documented as of this encounter (statuses as of 01/04/2023) [facility] History of Past illness Narrative* Problem Noted Date Diagnosed Date Resolved Date Sepsis 09/12/2021 11/19/2021 documented as of this encounter (statuses as of 02/08/2023) [facility] History of Past illness Narrative* Problem Noted Date Diagnosed Date Resolved Date Sepsis 09/12/2021 11/19/2021 documented as of this encounter (statuses as of 06/15/2023) [facility] History of Past illness Narrative* Problem Noted Date Diagnosed Date Resolved Date Sepsis 09/12/2021 11/19/2021 documented as of this encounter (statuses as of 06/15/2023) [facility]2022 NoteHNO ID: [id number] Author: Megan Conklin, DO Service: ? Author [...] access, showers wheelchair accessible Megan Conklin DO 09/12/21[facility]07-05-2022 History of Present illness Narrative* Megan Conklin [...] Megan Conklin DO 09/12/21 [facility] History of Present illness Narrative* RT Sergio(R) [...] 01, 2021 8:42 AM [facility] History of Present illness Narrative* LEONARD Oliva - 09/01/2021 7:27 AM EDT Images from the original note were not included. [facility] Consultation Note Genetic Counselor: Mili Moncada MS, [facility] Patient: Taylor Wesley Patient Name and confirmed at initiation of visit HIGH LEVEL SUMMARY: The patient's family history is potentially suggestive of a hereditary breast cancer syndrome. The patient provided informed consent for Hereditary Breast and Ovarian Cancer Panel with reflex toa Custom Cancer Panel through [employer]. Results are expected in 2-3 weeks. IDENTIFICATION [...] appropriate standard National Comprehensive Cancer Network and [place] Cancer [employer] guidelines, withconsideration of their personal [...] reflex to a Custom Cancer Panel through 1-800-DENTIST. The Custom Cancer Panel includes APC, NOÉ, AXIN2, BAP1, BARD1, BMPR1A, BRCA1, BRCA2, BRIP1, CDH1, CDK4, CDKN2A, CHEK2, CTNNA1, DDX41, DICER1, EPCAM, FH, FLCN, GREM1, HOXB13, MAX, MEN1, MET, MITF, MLH1, MSH2, MSH3, MSH6, MUTYH, NF1, NTHL1, PALB2, PMS2, POLD1, POLE, POT1, PTCH1, PTEN, RAD51C, RAD51D,RET, SDHA, SDHAF2, SDHB, SDHC, SDHD, SMAD4, SMARCA4, STK11, AXFF366, TP53, TSC1, TSC2, and VHL We discussed [...] greater than 50% of which was spent [id number] counseling. This plan is being carried out per Dr. Radha Deng's recommendations. This note will also be sent to the referring provider via the electronic medical record. Mili Moncada, , [facility], Licensed Genetic Counselor [facility] CC: Dr. Jazmin Valentin [facility] Miscellaneous Notes* Telephone Encounter - Jes Shane RN - 03/02/2021 11:24 AM EST Patient called and was given pathology results. Informed that concordance report from radiology is not complete. Instructed to keep follow up appointment as physician will discuss final recommendations for care. Jes Shane RN documented [facility] History of Present illness Narrative* RT Keyanna(R) [...] 28, 2021 8:33 AM documented in [facility] History of Present illness Narrative* RT Keyanna(R) [...] 07, 2021 1:57 PM documented in [facility] History and physical note * Jazmin Zazueta MD - 02/07/2021 11:14 AM EST Images from the original note were not included. Jazmin Zazueta MD [facility] [address] [place] [address] SUBJECTIVE Chief Complaint: Patient presents with: Breast [...] (mom ) PREVIOUS BREAST BIOPSIES No RACE -Estonian GEOVANI MODEL RISK 5 YEAR 2.3 GEOVANI [...] MD 02/07/2021 11:14 AM documented in [facility] Nurse Note* Yudelka Guerra MA - 02/07/2021 [...] no Yudelka Guerra MA [facility] [place] [facility]* Diagnosis Breast calcification, right Other (abnormal) findings on radiological examination of breast [facility] Diagnosis Breast calcification, right Other (abnormal) findings on radiological examination of breast [facility]* Diagnosis Breast calcification, right- Primary Other (abnormal) findings on radiological examination of breast [facility] [place] [facility] Diagnosis Breast calcification, right- Primary Other (abnormal) findings on radiological examination of breast [facility] [place] [facility]* Diagnosis Breast calcification, right Other (abnormal) findings on radiological examination of breast [facility] [place] [facility]* Diagnosis Onset Date Resolution Status Encounter for screening for COVID-19 acute Gastroenteritis acute Vomiting acute [facility] Work Phone: evaluation note* Diagnosis Family history of malignant neoplasm of breast- Primary At high risk for breast cancer documented in this encounter [facility] note* Diagnosis Fibroadenoma of breast, right Breast calcification, right Other (abnormal) findings on radiological examination of breast [facility] [place] [facility]* Diagnosis 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 Paraplegia (HCC) Paraplegia Type 2 diabetes mellitus with other specified complication, without long-term current use of insulin (HCC) [facility] [place] [facility]* Diagnosis Abnormal mammogram- Primary Abnormal mammogram, unspecified Family history of malignant neoplasm of breast At high risk for breast cancer documented in this encounter [facility] note* Diagnosis Type 2 diabetes mellitus with other specified complication, without long-term current use of insulin (HCC)- Primary Hypokalemia Hypopotassemia Essential hypertension Unspecified essential hypertension documented in this encounter [facility] noteNo assessment information [facility]WPark[facility] Work Phone: evaluation note* Diagnosis Onset Date Resolution Status Contact with and (suspected) exposure to other viral communicable diseases [facility] Work Phone: evaluation note* Diagnosis Onset Date Resolution Status Contact with and (suspected) exposure to other viral communicable diseases acute Acute bronchitis acute Contact with and (suspected) exposure to other viral communicable diseases [facility] Work Phone: evaluation note* Diagnosis Abnormal mammogram Abnormal mammogram, unspecified documented in this encounter [facility] note* Diagnosis Onset Date Resolution Status Acute bronchitis acute Contact with and (suspected) exposure to other viral communicable diseases [facility] Work Phone: evaluation note* Diagnosis Breast calcification, right- Primary Other (abnormal) findings on radiological examination of breast Dense breast tissue At high risk for breast cancer [facility] [place] [facility]* Diagnosis Unspecified lump in axillary tail of the left breast- Primary Dense breast tissue Breast calcification, right Other (abnormal) findings on radiological examination of breast At high risk for breast cancer [facility] [place] [facility]* Diagnosis Mass of axillary tail of left breast- Primary [facility]* Diagnosis Abnormal mammogram Abnormal mammogram, unspecified [facility] [place] [facility]* Diagnosis Breast calcification, right Other (abnormal) findings on radiological examination of breast Abnormal mammogram Abnormal mammogram, unspecified [facility] [place] [facility]* Diagnosis Onset Date Resolution Status Abnormal uterine bleeding (AUB) acute Routine gynecological examination noneactive [facility] Work Phone: Evaluation note* Diagnosis Pelvic mass in female- Primary Abnormal uterine bleeding (AUB) Pelvic pain in female Unspecified symptom associated with female genital organs Intra-abdominal and pelvic swelling, mass and lump, unspecified site [facility] [place] [facility]* Diagnosis Intra-abdominal and pelvic swelling, mass and lump, unspecified site- Primary Intra-abdominal and pelvic swelling, mass and lump, unspecified site Acute postoperative pain Other acute postoperative pain [facility] [place] [facility]* Diagnosis Type 2 diabetes mellitus with hyperglycemia, with long-term current use of insulin (HCC)- Primary [facility] [place] [facility]* Diagnosis Type 2 diabetes mellitus with hyperglycemia, with long-term current use of insulin (HCC)- Primary Essential (primary) hypertension Unspecified essential hypertension Obesity (BMI 30-39.9) [facility] [place] [facility]* Diagnosis Postoperative state- Primary Other postprocedural status [facility] [place] [facility]* Diagnosis Diabetes education, encounter for- Primary Type 2 diabetes mellitus with hyperglycemia, with long-term current use of insulin (HCC) [facility] [place] [facility]* Diagnosis Type 2 diabetes mellitus with hyperglycemia, with long-term current use of insulin (HCC) [facility] [place] [facility]* Diagnosis Type 2 diabetes mellitus with hyperglycemia, with long-term current use of insulin (HCC)- Primary Essential (primary) hypertension Unspecified essential hypertension Class 2 severe obesity with serious comorbidity and body mass index (BMI) of 37.0 to 37.9 in adult, unspecified obesity type (HCC) [facility] [place] [facility]* Diagnosis Type 2 diabetes mellitus with hyperglycemia, with long-term current use of insulin (HCC)- Primary Hypertension associated with type 2 diabetes mellitus (HCC) Class 2 severe obesity with serious comorbidity and body mass index (BMI) of 37.0 to 37.9 in adult, unspecified obesity type (HCC) [facility] [place] [facility]* Diagnosis Type 2 diabetes mellitus with hyperglycemia, with long-term current use of insulin (HCC) documented in this encounter [facility] note* Diagnosis Type 2 diabetes mellitus with hyperglycemia, with long-term current use of insulin (HCC)- Primary Hypertension associated with type 2 diabetes mellitus (HCC) Class 2 severe obesity with serious comorbidity and body mass index (BMI) of 37.0 to 37.9 in adult, unspecified obesity type (HCC) [facility] Diagnostic Procedure Only (Routine) - Closed Specialty Diagnoses / Procedures Referred By Contac t Referred To Contact [facility] IM[facility] Diagnoses Breast calcification, right Procedures US BREAST LTD RT US BREAST UNILAT INCL AXILLA LIMITED Jazmin Zazueta MD [address] [place] [address] Br Imaging [address] [place] [address] Referral ID Status Reason Start Date Expiration Date V isits Requested Visits Authorized [id number] Closed Auto-Generate d Referral 02/07/2021 03/10/2021 1 1 [facility] for referral (narrative)* Diagnostic Procedure Only (Routine) - Pending Review Specialty Diagnoses / Procedures Referred By Contac t Referred To Contact BR IMAGING Diagnoses Breast calcification, right Procedures US BIOPSY BREAST RT BREAST BIOPSY W/ULTRASOUND GUIDANCE Jazmin Zazueta MD [address] [facility] [place] [address] Br Imaging [address] [place] [address] Referral ID Status Reason Start Date Expiration Date Visits Requested Visits Authorized [id number] Pending Review Auto-Generat ed Referral 02/08/2021 03/10/2022 1 1 [facility] for referral (narrative)* Diagnostic Procedure Only (Routine) - Closed Specialty Diagnoses / Procedures Referred By Contac t Referred To Contact BR IMAGING Diagnoses Breast calcification, right Procedures US BREAST LTD RT US BREAST UNILAT INCL AXILLA LIMITED Jazmin Zazueta MD [address] [place] [address] Br Imaging [address] [place] [address] Referral ID Status Reason Start Date Expiration Date V isits Requested Visits Authorized [id number] Closed Auto-Generate d Referral 02/07/2021 03/10/2021 1 1 * Diagnostic Procedure Only (Routine) - Closed Specialty Diagnoses / Procedures Referred By Contac t Referred To Contact BR IMAGING Diagnoses Breast calcification, right Procedures GUILLERMINA STEREO BX BREAST RT BREAST BIOPSY W/STEREOTACTIC GUIDANCE Jazmin Zazueta MD [address] [place] [address] Br Imaging [address] [place] [address] Referral ID Status Reason Start Date Expiration Date V isits Requested Visits Authorized [id number] Closed Auto-Generate d Referral 03/11/2020 03/10/2021 1 1 [facility] for referral (narrative)* Diagnostic Procedure Only (Routine) - Closed Specialty Diagnoses / Procedures [facility] To Contact [facility] Diagnoses Breast calcification, right Procedures US BIOPSY BREAST RT BREAST BIOPSY W/ULTRASOUND GUIDANCE Jazmin Zazueta MD [address] [facility] [address] [place] [address] Br Imaging [address] [place] [address] Referral ID Status Reason Start Date Expiration Date V isits Requested Visits Authorized [id number] Closed Auto-Generate d Referral 03/11/2020 03/10/2021 1 1 [facility] for referral (narrative)* Diagnostic Procedure Only (Routine) - Closed Specialty Diagnoses / Procedures [facility] Referred To Contact [facility] IM[facility] Diagnoses Fibroadenoma of breast, right Breast calcification, right Procedures GUILLERMINA DIAGNOSTIC RT DIAGNOSTIC MAMMOGRAPHY COMPUTER-AIDED DETCJ UNI Jazmin Zazueta MD [address] [facility] [place] [address] Br Imaging [address] [place] [address] Referral ID Status Reason Start Date Expiration Date V isits Requested Visits Authorized [id number] Closed Auto-Generate d Referral 03/11/2021 03/10/2022 1 1 [facility] for referral (narrative)* Diagnostic Procedure Only (Routine) - Authorized Specialty Diagnoses / Procedures [facility] Referred To Contact [facility] Diagnoses Abnormal mammogram Procedures GUILLERMINA DIAG W ROBERTO BILAT DIGITAL BREAST TOMOSYNTHESIS BILATERAL Jazmin Zazueta MD [address] [facility] [place] [address] Br Imaging [address] [place] [address] Referral ID Status Reason Start Date Expiration Date Visits Requested Visits Authorized [id number] Authorized Auto-Generat ed Referral 2021 11/17/2022 1 1 T [facility] for referral (narrative)* Diagnostic Procedure Only (Routine) - Closed Specialty Diagnoses / Procedures [facility] Referred To Contact [facility] Diagnoses Abnormal mammogram Procedures GUILLERMINA DIAG W ROBERTO BILAT DIGITAL BREAST TOMOSYNTHESIS BILATERAL Jazmin Zazueta MD [address] [facility] [place] [address] Br Imaging [address] [place] [address] Referral ID Status Reason Start Date Expiration Date V isits Requested Visits Authorized [id number] Closed Auto-Generate d Referral 2021 11/17/2022 1 1 [facility] for referral (narrative)* Diagnostic Procedure Only (Routine) - Pending Review Specialty Diagnoses / Procedures Referred By Erica miguel Referred To Contact BR IMAGING Diagnoses Breast calcification, right Procedures GUILLERMINA DIAG W ROBERTO BILATERAL DIGITAL BREAST TOMOSYNTHESIS BILATERAL Jazmin Zazueta MD [address] [place] [address] Br Imaging [address] [place] [address] Referral ID Status Reason Start Date Expiration Date Visits Requested Visits Authorized [id number] Pending Review Auto-Generat ed Referral 11/09/2022 12/08/2023 1 1 [facility] for referral (narrative)* Diagnostic Procedure Only (Routine) - Authorized Specialty Diagnoses / Procedures Referred By Erica t Referred To Contact BR IMAGING Diagnoses Unspecified lump in axillary tail of the left breast Procedures US BREAST LTD LEFT US BREAST UNI REAL TIME WITH IMAGE LIMITED Jazmin Zazueta MD [address] [place] [address] Br Imaging [address] [place] [address] Referral ID Status Reason Start Date Expiration Date Visits Requested Visits Authorized [id number] Authorized Auto-Generat ed Referral 3 02/03/2024 1 1 [facility] for referral (narrative)* Diagnostic Procedure Only (Routine) - Pending Review Specialty Diagnoses / Procedures Referred By Contac t Referred To Contact BR IMAGING Diagnoses Mass of axillary tail of left breast Procedures US BREAST LTD LEFT US BREAST UNI REAL TIME WITH IMAGE LIMITED Jazmin Zazueta MD [address] [place] [address] Br Imaging [address] [place] [address] Referral ID Status Reason Start Date Expiration Date Visits Requested Visits Authorized [id number] Pending Review Auto-Generat ed Referral 3 03/05/2024 1 1 [facility] for referral (narrative)No reason for referral information availableWPark[facility] Work Phone: Reason for visit Narrative* Diagnostic Procedure Only (Routine) - Pending Review Specialty Diagnoses / Procedures Referred By Erica t Referred To Contact BR IMAGING Diagnoses Breast calcification, right Procedures GUILLERMINA STEREO BX BREAST RT BREAST BIOPSY W/STEREOTACTIC GUIDANCE Jazmin Zazueta MD [address] [place] [address] Br Imaging [address] [place] [address] Referral ID Status Reason Start Date Expiration Date Visits Requested Visits Authorized [id number] Pending Review Auto-Generat ed Referral 1 03/09/2022 1 1 [facility] for visit Narrative* Diagnostic Procedure Only (Routine) - Closed Specialty Diagnoses / Procedures Referred By Erica t Referred To Contact BR IMAGING Diagnoses Breast calcification, right Procedures US BREAST LTD RT US BREAST UNILAT INCL AXILLA LIMITED Jazmin Zazueta MD [address] [place] [address] Br Imaging [address] [place] [address] Referral ID Status Reason Start Date Expiration Date V isits Requested Visits Authorized [id number] Closed Auto-Generate d Referral 02/07/2021 03/10/2021 1 1 [facility] for visit Narrative* Diagnostic Procedure Only (Routine) - Closed Specialty Diagnoses / Procedures Referred By Contmagda t Referred To Contact BR IMAGING Diagnoses Breast calcification, right Procedures US BIOPSY BREAST RT BREAST BIOPSY W/ULTRASOUND GUIDANCE Jazmin Zazueta MD [address] [place] [address] Br Imaging [address] [place] [address] Referral ID Status Reason Start Date Expiration Date V isits Requested Visits Authorized [id number] Closed Auto-Generate d Referral 03/11/2020 03/10/2021 1 1 [facility] for visit Narrative* Diagnostic Procedure Only (Routine) - Closed Specialty Diagnoses / Procedures Referred By Contac t Referred To Contact BR IMAGING Diagnoses Breast calcification, right Procedures US BREAST LTD RT US BREAST UNILAT INCL AXILLA LIMITED Jazmin Zazueta MD [address] [facility] [address] [place] [address] Br Imaging [address] [place] [address] Referral ID Status Reason Start Date Expiration Date V isits Requested Visits Authorized [id number] Closed Auto-Generate d Referral 08/03/2021 03/10/2022 2 2 [facility] for visit Narrative* Diagnostic Procedure Only (Routine) - Closed Specialty Diagnoses / Procedures [facility] Referred To Contact [facility] Diagnoses Abnormal mammogram Procedures GUILLERMINA DIAG W ROBERTO BILAT DIGITAL BREAST TOMOSYNTHESIS BILATERAL Jazmin Zazueta MD 1 [facility] [address] [place] [address] Br Imaging [address] [place] [address] Referral ID Status Reason Start Date Expiration Date V isits Requested Visits Authorized [id number] Closed Auto-Generate d Referral 2021 11/17/2022 1 1 [facility] for visit Narrative* Diagnostic Procedure Only (Routine) - Closed Specialty Diagnoses / Procedures Referred By Contac t Referred To Contact BR IMAGING Diagnoses Abnormal mammogram Procedures GUILLERMINA STEREO BX BREAST RIGHT BX BREAST W/DEVICE 1ST LESION STEREOTACTIC GUID Vicky Davidson, PROJECT MANAGEMENT PROFESSOR.DIESEL TECHNICIAN MECHANIC [address] [facility] [place] [address] Br Imaging [address] [place] [address] Referral ID Status Reason Start Date Expiration Date V isits Requested Visits Authorized [id number] Closed Auto-Generate d Referral 05/10/2023 06/07/2024 1 1 [facility] for visit Narrative* Diagnostic Procedure Only (Routine) - Closed Specialty Diagnoses / Procedures Referred By Erica t Referred To Contact BR IMAGING Diagnoses Breast calcification, right Abnormal mammogram Procedures GUILLERMINA DIAGNOSTIC RIGHT DIAGNOSTIC MAMMOGRAPHY COMPUTER-AIDED DETCJ UNI Vicky Davidson, PROJECT MANAGEMENT PROFESSOR.DIESEL TECHNICIAN MECHANIC [address] [place] [address] Br Imaging [address] [place] [address] Referral ID Status Reason Start Date Expiration Date V isits Requested Visits Authorized [id number] Closed Auto-Generate d Referral 05/17/2023 06/14/2024 1 1 [facility] Medications Administered Section Inactive Administered Medications - [...] Will Yes February 28 12:10pm Power of Quality Assurance Representative Yes February 29, 2020 12:10pm Advance Directive Response Recorded Date/ Time Advance Directives No August 06 5 11:26am Living Will No June 15, 2021 7:19pm Power of Quality Assurance Representative No June 15 7:19pm Advance Directive Response Recorded Date/ Time Advance Directives No August 06 5 10:26am Living Will No June 15, 2021 6:19pm Power of Quality Assurance Representative No June 15 6:19pm Advance Directive Response Recorded Date/ Time Advance Directives No August 06 5 10:26am Living Will No March 10, 022 3:45pm Power of Quality Assurance Representative No March 10, 2022 3:45pm Advance Directive Response Recorded Date/ Time Advance Directives No August 06 5 11:26am Living Will No March 10, 2 022 4:45pm Power of Quality Assurance Representative No March 10, 2022 4:45pm Advance Directive Response Recorded Date/ Time Advance Directives No November 9:04am Living Will No November 30, 2022 9:04am Power of Quality Assurance Representative No November 9:04am Advance Directive Response Recorded Date/ Time Advance Directives No November 8:04am Living Will No November 30, 2022 8:04am Power of Quality Assurance Representative No November 8:04am Date Activated Date Inactivated Comments 11/26/2023 8:23 AM Date Activated Date Inactivated Comments 11/26/2023 8:23 AM 11/29/2023 4:41 PM Date Activated Date Inactivated Comments 11/26/2023 8:23 AM 11/29/2023 4:41 PM Advance Directive Response Recorded Date/ Time Living Will No May 09, 2024 2:40am Do you have a Healthcare Power of Quality Assurance Representative? No May 09, 2024 2:40am Living Will No September 26, 2023 8:44am Do you have a Healthcare Power of Quality Assurance Representative? No December 10, 2023 12:04am Living Will No March 11 1:33am Do you have a Healthcare Power of Quality Assurance Representative? No March 11, 2024 1:33am Advance Directives No November 9:04am Advance Directive Response Recorded Date/ Time Living Will No May 09, 2024 2:40am Do you have a Healthcare Power of Quality Assurance Representative? No May 09, 2024 2:40am Living Will No June 09, 2024 12:23am Do you have a Healthcare Power of Quality Assurance Representative? No June 09, 2024 12:23am Living Will No March 11 1:33am Do you have a Healthcare Power of Quality Assurance Representative? No March 11, 2024 1:33am Advance Directives No November 9:04am Advance Directive Response Recorded Date/ Time Living Will No June 09, 2024 12:23am Do you have a Healthcare Power of Quality Assurance Representative? No June 09, 2024 12:23am Living Will No August 09, 2024 1 2:04am Do you have a Healthcare Power of Quality Assurance Representative? No August 09, 2024 12:04am Advance Directives [...] or prosecute any alcohol or drug abuse patient.[facility] Hospital[facility] the event this information is protected by the Federal Confidentiality of Alcohol and Drug Abuse Patient Records regulations: The Federal rules restrict any use of the information to criminally investigate or prosecute any alcohol or drug abuse patient.[facility] HospitalIn the event this information is protected by the Federal Confidentiality of Alcohol and Drug Abuse Patient Records regulations: The Federal rules restrict any use of the information to criminally investigate or prosecute any alcohol or drug abuse patient.[facility] HospitalIn the event this information is protected by the Federal Confidentiality of Alcohol and Drug Abuse Patient Records regulations: The Federal rules restrict any use of the information to criminally investigate or prosecute any alcohol or drug abuse patient.[facility] HospitalIn the event this information is protected by the Federal Confidentiality of Alcohol and Drug Abuse Patient Records regulations: The Federal rules restrict any use of the information to criminally investigate or prosecute any alcohol or drug abuse patient.[facility] HospitalIn the event this information is protected by the Federal Confidentiality of Alcohol and Drug Abuse Patient Records regulations: The Federal rules restrict any use of the information to criminally investigate or prosecute any alcohol or drug abuse patient.[facility] HospitalIn the event this information is protected by the Federal Confidentiality of Alcohol and Drug Abuse Patient Records regulations: The Federal rules restrict any use of the information to criminally investigate or prosecute any alcohol or drug abuse patient.[facility] HospitalIn the event this information is protected by the Federal Confidentiality of Alcohol and Drug Abuse Patient Records regulations: The Federal rules restrict any use of the information to criminally investigate or prosecute any alcohol or drug abuse patient.[facility] HospitalIn the event this information is protected by the Federal Confidentiality of Alcohol and Drug Abuse Patient Records regulations: The Federal rules restrict any use of the information to criminally investigate or prosecute any alcohol or drug abuse patient.[facility] HospitalIn the event this information is protected by the Federal Confidentiality of Alcohol and Drug Abuse Patient Records regulations: The Federal rules restrict any use of the information to criminally investigate or prosecute any alcohol or drug abuse patient.[facility] HospitalIn the event this information is protected by the Federal Confidentiality of Alcohol and Drug Abuse Patient Records regulations: The Federal rules restrict any use of the information to criminally investigate or prosecute any alcohol or drug abuse patient.[facility] HospitalIn the event this information is protected by the Federal Confidentiality of Alcohol and Drug Abuse Patient Records regulations: The Federal rules restrict any use of the information to criminally investigate or prosecute any alcohol or drug abuse patient.[facility] HospitalIn the event this information is protected by the Federal Confidentiality of Alcohol and Drug Abuse Patient Records regulations: The Federal rules restrict any use of the information to criminally investigate or prosecute any alcohol or drug abuse patient.[facility] HospitalIn the event this information is protected by the Federal Confidentiality of Alcohol and Drug Abuse Patient Records regulations: The Federal rules restrict any use of the information to criminally investigate or prosecute any alcohol or drug abuse patient.[facility] HospitalIn the event this information is protected by the Federal Confidentiality of Alcohol and Drug Abuse Patient Records regulations: The Federal rules restrict any use of the information to criminally investigate or prosecute any alcohol or drug abuse patient.[facility] HospitalIn the event this information is protected by the Federal Confidentiality of Alcohol and Drug Abuse Patient Records regulations: The Federal rules restrict any use of the information to criminally investigate or prosecute any alcohol or drug abuse patient.[facility] HospitalIn the event this information is protected by the Federal Confidentiality of Alcohol and Drug Abuse Patient Records regulations: The Federal rules restrict any use of the information to criminally investigate or prosecute any alcohol or drug abuse patient.[facility] HospitalIn the event this information is protected by the Federal Confidentiality of Alcohol and Drug Abuse Patient Records regulations: The Federal rules restrict any use of the information to criminally investigate or prosecute any alcohol or drug abuse patient.[facility] HospitalIn the event this information is protected by the Federal Confidentiality of Alcohol and Drug Abuse Patient Records regulations: The Federal rules restrict any use of the information to criminally investigate or prosecute any alcohol or drug abuse patient.[facility] HospitalIn the event this information is protected by the Federal Confidentiality of Alcohol and Drug Abuse Patient Records regulations: The Federal rules restrict any use of the information to criminally investigate or prosecute any alcohol or drug abuse patient.[facility] HospitalIn the event this information is protected by the Federal Confidentiality of Alcohol and Drug Abuse Patient Records regulations: The Federal rules restrict any use of the information to criminally investigate or prosecute any alcohol or drug abuse patient.[facility] HospitalIn the event this information is protected by the Federal Confidentiality of Alcohol and Drug Abuse Patient Records regulations: The Federal rules restrict any use of the information to criminally investigate or prosecute any alcohol or drug abuse patient.[facility] Teams (unrecognized sec tion and content) Histological Illustrator Relationship Specialty Start Date End Date Ion Williamsonyesenia, DO [address] [place] [address] PCP - General Family Practice 02/07/21 Jazmin Zazueta MD [address] F[address] [facility] BRE[facility] [place], [place] [id number] Surgeon Breast Diseases 02/07/21 Histological Illustrator Relationship Specialty Start Date End Date Ion Williamson Karsten, DO [address] [place] [address] PCP - General Family Practice 02/07/21 Jazmin Zazueta MD [address] F[facility] BRE[facility] [place], [place] [id number] Surgeon Breast Diseases 02/07/21 Histological Illustrator Relationship Specialty Start Date End Date Ion Williamson Saira, DO [address] [place] [address] PCP - General Family Practice 02/07/21 Jazmin Zazueta MD [address] 1[address] FLR [facility] [place], [place] [id number] Surgeon Breast Diseases 02/07/21 Histological Illustrator Relationship Specialty Start Date End Date Ion Williamson Saira, DO [address] [place] [address] PCP - General Family Practice 02/07/21 Jazmin Zazueta MD [address] [facility] [place], [place] [id number] Surgeon Breast Diseases 02/07/21 Histological Illustrator Relationship Specialty Start Date End Date Ion Williamson Saira, DO [address] [place] [address] PCP - General Family Practice 02/07/21 Jazmin Zazueta MD [address] F[facility] BRE[facility] [place], [place] [id number] Surgeon Breast Diseases 02/07/21 Histological Illustrator Relationship Specialty Start Date End Date Ion Williamson, [address] [place] [address] PCP - General Family Practice 02/07/21 Jazmin Zazueta MD [address] FLR [facility] BRE[facility] [place], [place] [id number] Surgeon Breast Diseases 02/07/21 Histological Illustrator Relationship Specialty Start Date End Date Ion Williamson, [address] [place] [address] PCP - General Family Practice 02/07/21 Jazmin Zazueta MD [address] 1[address] FLR [facility] BRE[facility] [place], [place] [id number] Surgeon Breast Diseases 02/07/21 Histological Illustrator Relationship Specialty Start Date End Date [facility], [address] [place] [address] PCP - General Family Practice 02/07/21 Jazmin Zazueta MD [address] FLR [facility] [place], [place] [id number] Surgeon Breast Diseases 02/07/21 Histological Illustrator Relationship Specialty Start Date End Date Ion Williamson, DO [address] [place] [address] PCP - General Family Practice 02/07/21 Jazmin Zazueta MD [address] 1[address] FLR [facility] [place], [place] [id number] Surgeon Breast Diseases 02/07/21 Histological Illustrator Relationship Specialty Start Date End Date Ion Williamson, DO [address] [place] [address] PCP - General Family Practice 02/07/21 Jazmin Zazueta MD [address] F[facility] [place], [place] [id number] Surgeon Breast Diseases 02/07/21 Team Status: Active [...] MD Attending Provider, Emergency Provid er Active Histological Illustrator Relationship Specialty Start Date End Date Ion Williamson DO PCP - General Family Medicine 02/07/21 Jazmin Zazueta MD [address] F[facility] [place], [place] [id number] Surgeon Breast Diseases 02/07/21 Histological Illustrator Relationship Specialty Start Date End Date Ion Williamson DO PCP - General Family Medicine 02/07/21 Jazmin Zazueta MD [address] [facility] [place], [place] [id number] Surgeon Breast Diseases 02/07/21 Team Status: Active Member Role Status Dates Dr. Ion Williamson DO Primary Care P devora, Attending Provider, Referring Provider Active Histological Illustrator Relationship Specialty Start Date End Date Ion Williamson DO PCP - General Family Medicine 02/07/21 Jazmin Zazueta MD [address] F[facility] [place], [place] [id number] Surgeon Breast Diseases 02/07/21 Histological Illustrator Relationship Specialty Start Date End Date Ion Williamson DO PCP - General Family Medicine 02/07/21 Jazmin Zazueta MD [address] F[facility] [place], [place] [address] Surgeon Breast Diseases 02/07/21 Histological Illustrator Relationship Specialty Start Date End Date Ion Williamson DO PCP - General Family Medicine 02/07/21 Jazmin Zazueta MD [address] F[facility] [place], [place] [id number] Surgeon Breast Diseases 02/07/21 Team Status: Inactive Member Role Status Dates Dr. Ion Williamson DO Primary Care Provider Active MARBIN HAM Attending Provider, Referring Provide r Active Histological Illustrator Relationship Specialty Start Date End Date Ion Williamson DO PCP - General Family Medicine 02/07/21 Jazmin Zazueta MD [address] FLR [facility] BRE[facility] [place], [place] [id number] Surgeon Breast Diseases 02/07/21 Histological Illustrator Relationship Specialty Start Date End Date Ion Williamson DO PCP - General Family Medicine 02/07/21 Jazmin Zazueta MD [address] 1[address] FLR [facility] BRE[facility] [place], [place] [id number] Surgeon Breast Diseases 02/07/21 Team Status: Inactive Member Role Status Dates Dr. Ion Williamson , DO Primary Care Provider, Refer ring Provider Active Luisana Matos HEEL BLACKER, HEEL BLACKER-C Attending Provider Active Team Status: Inactive Member Role Status Dates Dr. Ion Williamson DO Primary Care Provider Active Luisana Matos HEEL BLACKER, HEEL BLACKER-C Attending Provider, Referring Provider Active Team Status: Active Member Role Status Dates Dr. Ion Williamson DO Primary Care Provider Active Luisana Matos HEEL BLACKER, HEEL BLACKER-C Attending Provider Active Team Status: Inactive Member Role Status Dates Dr. Ion Williamson DO Primary Care Provider Active Luisana Matos HEEL BLACKER, HEEL BLACKER-C Attending Provider Active Histological Illustrator Relationship Specialty Start Date End Date Ion Williamson DO PCP - General Family Medicine 02/07/21 Jazmin Zazueta MD [address] [place] [address] Surgeon Breast Diseases 02/07/21 Histological Illustrator Relationship Specialty Start Date End Date Ion Williamson DO [address] [place] [address] [phone] PCP - General Family Medicine 10/18/23 Robert Bruce MD [address] [address] Consulting Physician Gynecologic Oncology 10/16/23 Histological Illustrator Relationship Specialty Start Date End Date Ion Williamson DO [address] [place] [address] [phone] PCP - General Family Medicine 10/18/23 Robert Bruce MD [address] [address] Consulting Physician Gynecologic Oncology 10/16/23 Histological Illustrator Relationship Specialty Start Date End Date Ion Williamson DO [address] [place] [address] [phone] PCP - General Family Medicine 10/18/23 Robert Bruce MD [address] [address] Consulting Physician Gynecologic Oncology 10/16/23 Histological Illustrator Relationship Specialty Start Date End Date Ion Williamson DO [address] [place] [address] [phone] PCP - General Family Medicine 10/18/23 Robert Bruce MD [address] [facility] [address] [place] [address] Consulting Physician Gynecologic Oncology 10/16/23 Histological Illustrator Relationship Specialty Start Date End Date Ion Williamson DO [address] [place] [address] [phone] PCP - General Family Medicine 10/18/23 Robert Bruce MD 161 [facility] [address] [place] [address] Consulting Physician Gynecologic Oncology 10/16/23 Histological Illustrator Relationship Specialty Start Date End Date Ion Williamson DO [address] [place] [phone] PCP - General Family Medicine 10/18/23 Robert Bruce MD [address] [facility] [address] [place] [address] Consulting Physician Gynecologic Oncology 10/16/23 Histological Illustrator Relationship Specialty Start Date End Date Ion Williamson DO [address] [place] [phone] PCP - General Family Medicine 10/18/23 Robert Bruce MD [address] [facility] [address] [place] [address] Consulting Physician Gynecologic Oncology 10/16/23 Marisol Emery APRN - CT 161 [facility] [address] [place] [address] Nurse Practitioner Nurse Practitioner 12/02/23 Histological Illustrator Relationship Specialty Start Date End Date Ion Williamson DO [address] [place] [phone] PCP - General Family Medicine 10/18/23 Robert Bruce MD 161 [facility] [address] [place] [address] Consulting Physician Gynecologic Oncology 10/16/23 Marisol Emery APRN - CNP [address] [facility] [address] [place] [address] Nurse Practitioner Nurse Practitioner 12/02/23 Histological Illustrator Relationship Specialty Start Date End Date Ion Williamson DO [facility] [place] [phone] PCP - General Family Medicine 10/18/23 Robert Bruce MD [address] [facility] [address] [place] [address] Consulting Physician Gynecologic Oncology 10/16/23 Marisol Emery APRN - CNP [address] [facility] [address] [place] [address] Nurse Practitioner Nurse Practitioner 12/02/23 Histological Illustrator Relationship Specialty Start Date End Date Ion Williamson DO [facility] [place] [address] PCP - General Family Medicine 10/18/23 Robert Bruce MD [address] [facility] [address] [place] [address] Consulting Physician Gynecologic Oncology 10/16/23 Marisol Emery APRN - CNP [address] [facility] [address] [place] [address] Nurse Practitioner Nurse Practitioner 12/02/23 Histological Illustrator Relationship Specialty Start Date End Date Ion Williamson DO [facility] [place] [phone] PCP - General Family Medicine 10/18/23 Robert Bruce MD [address] [facility] [address] [place] [address] Consulting Physician Gynecologic Oncology 10/16/23 Marisol Emery APRN - DIESEL TECHNICIAN MECHANIC [address] [address] Nurse Practitioner Nurse Practitioner 12/02/23 Histological Illustrator Relationship Specialty Start Date End Date Ion Williamson DO [facility] [place] [phone] PCP - General Family Medicine 10/18/23 Robert Bruce MD [address] [address] Consulting Physician Gynecologic Oncology 10/16/23 Marisol Emery APRN - DIESEL TECHNICIAN MECHANIC [address] [address] Nurse Practitioner Nurse Practitioner 12/02/23 Histological Illustrator Relationship Specialty Start Date End Date Ion Williamson DO [facility] [place] [phone] PCP - General Family Medicine 10/18/23 Robert Bruce MD [address] [place] [address] Consulting Physician Gynecologic Oncology 10/16/23 Marisol Emery APRN - CNP [address] [facility] [address] [place] [address] Nurse Practitioner Nurse Practitioner 12/02/23 Histological Illustrator Relationship Specialty Start Date End Date Ion Williamson DO [facility] [place] [address] PCP - General Family Medicine 10/18/23 Robert Bruce MD [address] [facility] [address] [place] [address] Consulting Physician Gynecologic Oncology 10/16/23 Marisol Emery APRN - CNP [address] [facility] [address] [place] [address] Nurse Practitioner Nurse Practitioner 12/02/23 Histological Illustrator Relationship Specialty Start Date End Date Ion Williamson DO [address] [place] [phone] PCP - General Family Medicine 10/18/23 Robert Bruce MD [address] [facility] [address] [place] [address] Consulting Physician Gynecologic Oncology 10/16/23 Marisol Emery APRN - CNP [address] [facility] [address] [place] [address] Nurse Practitioner Nurse Practitioner 12/02/23 Histological Illustrator Relationship Specialty Start Date End Date Ion Williamson DO [facility] [place] [phone] PCP - General Family Medicine 10/18/23 Robert Bruce MD [address] [address] Consulting Physician Gynecologic Oncology 10/16/23 Marisol Emery APRN - DIESEL TECHNICIAN MECHANIC 161 [facility] [address] [place] [address] Nurse Practitioner Nurse Practitioner 12/02/23 Histological Illustrator Relationship Specialty Start Date End Date Ion Williamson DO [address] [place] [phone] PCP - General Family Medicine 10/18/23 Robert Bruce MD [address] [address] Consulting Physician Gynecologic Oncology 10/16/23 Marisol Emery APRN - DIESEL TECHNICIAN MECHANIC 161 [facility] [address] [place] [address] Nurse Practitioner Nurse Practitioner 12/02/23 Team Status: [...] June 11, 2024 End: June 11, 2024 Histological Illustrator Relationship Specialty Start Date End Date Ion Williamson DO [address] [place] [address] [phone] PCP - General Family Medicine 10/18/23 Robert Bruce MD [address] [facility] [address] [place] [address] Consulting Physician Gynecologic Oncology 10/16/23 Marisol Emery APRN - DIESEL TECHNICIAN MECHANIC [address] [facility] [address] [place] [address] Nurse Practitioner Nurse Practitioner 12/02/23 Histological Illustrator Relationship Specialty Start Date End Date Ion Williamson DO [address] [place] [phone] PCP - General Family Medicine 10/18/23 Robert Bruce MD [address] [facility] [address] [place] [address] Consulting Physician Gynecologic Oncology 10/16/23 Marisol Emery APRN - DIESEL TECHNICIAN MECHANIC [address] [facility] [address] [place] [address] Nurse Practitioner Nurse Practitioner 12/02/23 Team Status: Inactive Member Role Status Dates Dr. Ion Williamson DO Primary Care Provider Active Start: July 23, 2024 End: August 08, 2024 Dr. Ion Williamson DO Attending Provider Active Start: July 23, 2024 End: August 08, 2024 Dr. Ion Williamson DO Referring Provider Active Start: July 23, 2024 End: August 08, 2024 Histological Illustrator Relationship Specialty Start Date End Date Ion Williamson DO [address] [place] [phone] PCP - General Family Medicine 10/18/23 Robert Bruce MD [address] [facility] [address] [place] [address] Consulting Physician Gynecologic Oncology 10/16/23 Marisol Emery APRN - DIESEL TECHNICIAN MECHANIC [address] [facility] [address] [place] [address] Nurse Practitioner Nurse Practitioner 12/02/23 Histological Illustrator Relationship Specialty Start Date End Date Ion Williamson DO [address] [place] [phone] PCP - General Family Medicine 10/18/23 Robert Bruce MD [address] [facility] [address] [place] [address] Consulting Physician Gynecologic Oncology 10/16/23 Marisol Emery APRN - DIESEL TECHNICIAN MECHANIC [address] [facility] [address] [place] [address] Nurse Practitioner Nurse Practitioner 12/02/23 Team Status: [...] SURGERY Diagnoses right breast calcifications; films at [facility]; confirmed films received, per Mateo; additional films, right breast followed by Stereo biopsy (upright); ok'd by lobo; emailed and mailed appointment information Procedures NEW PATIENT VISIT LEVEL 4 NEW PATIENT Ion Williamson DO [address] [place] [address] Jazmin Zazueta MD [address] [place] [address] Referral ID Status Reason Start Date Expiration Date Visits Re quested Visits Authorized [id number] Closed 03/11/2020 03/10/2021 1 1 Specialty Diagnoses / Procedures Referred By Contact Referred To Contact [facility] Diagnoses Right breast calcs 1-2:00-Ultrasound biopsy (2 times for accomodation) Procedures BREAST BIOPSY W/ULTRASOUND GUIDANCE ULTRASOUND BIOPSY Jazmin Zazueta MD [address] [place] [address] Radio Mammo Reflections [place] [address] [place] [address] Referral ID Status Reason Start Date Expiration Date Visits Re quested Visits Authorized [id number] Closed 03/11/2020 03/10/2021 1 1 Reason Comments Results Specialty Diagnoses / Procedures Referred By Contac t Referred To Contact Diagnoses At high risk for breast cancer Procedures CONSULT TO MEDICAL GENETICS - CANCER GENETIC COUNSELING 30 MIN Jazmin Zazueta MD [address] [place] [address] [address] Referral ID Status Reason Start Date Expiration Date V isits Requested Visits Authorized [id number] Closed PCP Requested Referral Auto-Generated Referral 03/07/2021 [...] [address] [place] [address] [facility] [address] [place] [address] Referral ID Status Reason Start Date Expiration Date Visits Requested Visits Authorized [id number] Pending Review Auto-Generat ed Referral 11/09/2022 12/08/2023 [...] Other cerebral palsy (HCC) Postmenopausal bleeding Procedures IA OFFICE/OUTPATIENT NEW HIGH MDM 60 MINUTES Ebony Vanessa [address] [place] [address] [facility] [employer] [address] [facility] [address] [place] [phone] Referral ID Status Reason Start Date Expiration Date V isits Requested Visits Authorized [id number] Pending Review 10/16/2023 10/15/2024 1 1 Reason Onset Date Comments Other 2023 Surgery [facility] Reason Onset Date Comments Appointment 10/16/2023 Specialty Diagnoses / Procedures Referred By Erica Referred To Contact Diagnoses Intra-abdominal and pelvic swelling, mass and lump, unspecified site Procedures IA TOTAL ABDOMINAL HYSTERECT W/WO RMVL TUBE OVARY TOTAL ABDOMINAL HYSTERECTOMY BILATERAL SALPINGO OOPHORECTOMY Robert Bruce MD [address] [facility] [address] [place] [address] [address] [place] [address] Referral ID Status Reason Start Date Expiration Date Visits Re quested Visits Authorized [id number] 1 1 Reason Onset Date Comments Other [...] section and content) DATE CREATED AUTHOR 05/06/2021 [facility] [place] DATE CREATED AUTHOR AUTHOR'S ORGANIZ ATION 09/15/2021 [facility] DATE CREATED AUTHOR AUTHOR'S ORGANIZ ATION 10/20/2021 [facility] DATE CREATED AUTHOR AUTHOR'S ORGANIZ ATION 07/06/2023 [facility] DATE CREATED AUTHOR AUTHOR'S ORGANIZ ATION 09/25/2024 [facility] DATE CREATED AUTHOR AUTHOR'S ORGANIZ ATION 11/09/2024 [facility] Goals (unrecognized section and content) Goals may [...] sedation for opioid reversal - MUST notify director of pediatric rehabilitation provider immediately after first dose, may give [...] BE BASED ON THE PRIMARY CLINICAL RECORDS. [facility]. provides no warranty or guarantee of the accuracy or completeness of information in this document.
[2024-12-14 07:38] LABS: AST(SGOT) 26 U/L (<=31); Alanine Aminotransfer ALT/SGPT 32 U/L (<=34); Albumin, Serum 3.9 g/dL (3.5-5.0); Alkaline Phosphatase 76 U/L (35-104); Anion Gap 12 (5-15); BUN 13 mg/dL (4-19); BUN/Creat Ratio 32.5 RATIO (10-20); Calcium,Total 11.2 mg/dL (7.6-11.0); Carbon Dioxide 26.7 mmol/L (21.0-32.0); Chloride 103 mmol/L (98-108); Cholesterol 91 mg/dL (<=200); Globulin 3.7 g/dL (2.2-4.2); Glucose 136 mg/dL (70-99); Low Density Lipoprotein Calc. 31 mg/dL; Potassium 3.3 mmol/L (3.3-5.1); Triglycerides 99 mg/dL; Very Low Density Lipoprotein 20 mg/dL (5-40); cholesterol:hdl ratio screen 2.27
[2024-12-14 07:40] LABS: Vitamin D,25 Hydroxy 12.2 ng/mL (30-100)
== END | disposition home or self-care (01) ==
LOC: LABSPEC 06:23 → LAB 06:27
PROVIDERS: PCP Family Medicine
DX: E11.65 Type 2 diabetes mellitus with hyperglycemia (principal); E11.59 Type 2 diabetes mellitus with other circulatory complications; Z79.4 Long term (current) use of insulin; E66.812 Obesity, class 2; Z68.37 Body mass index [BMI] 37.0-37.9, adult; I15.2 Hypertension secondary to endocrine disorders
CPT/HCPCS: 36415; 80053; 80061; 82306; 83036

== ENCOUNTER 2025-01-05 07:30 | Outpatient (RCR) | payer BC, SELFPAY | END 2025-01-08 23:59 | LOC: NS 07:30 | PROVIDERS: PCP Family Medicine; Referring Provider Family Medicine; Visit Provider Family Medicine | DX: E11.9 Type 2 diabetes mellitus without complications (principal); Z71.3 Dietary counseling and surveillance | CPT/HCPCS: 97803 ==

== ENCOUNTER 2025-02-02 07:37 | Outpatient (RCR) | payer BC, SELFPAY | END 2025-02-07 23:59 | LOC: NS 07:37 | PROVIDERS: PCP Family Medicine; Referring Provider Family Medicine; Visit Provider Family Medicine | DX: E11.9 Type 2 diabetes mellitus without complications (principal); Z71.3 Dietary counseling and surveillance | CPT/HCPCS: 97803 ==